=== PATIENT | male | born 1950 | race Caucasian/White ===

== ENCOUNTER 2022-05-14 09:00 | Outpatient (CLI) | payer SELFPAY ==
--- OUTSIDE RECORDS SUMMARY | 2022-05-14 09:04 | XMS_ITS | Encounter Summary ---
:1950 Author Organization [facility] Address [address] [address] Care Team Providers Name Role Phone Non Pn, Clinician Primary Care Provider Unavailable Reason for Referral Procedure/Equipment (Routine) - Incomplete Specialty Diagnoses / Procedures Referred By Contact Refer red To Contact Diagnoses Pain, joint, ankle and foot, left Riley Wilkes MD Procedures XR Foot Lt 3+ Views [address] [facility] [place] [address] 1 Referral ID Status Reason Start Date Expiration Date Visits V isits Requested Authorized [id number] Incomplete 02/05/2021 05/07/2022 1 1 Reason for Visit Reason Comments Foot Pain left foot Encounter Details Date Type Department Care Team Description 02/05/2021 Office Visit [facility] Riley Wilkes, Pain, joint, ankle and foot, right (Primary Dx); CENTER Pain, joint, ankle and foot, left [address] [facility] [address] [facility] [place] [address] [place] [phone] (Wo rk) Social History Tobacco Use Types Packs/Day Years Used Date Smoking Tobacco: Never Smokeless Tobacco: Never Alcohol Habits Answer Date Recorded How often do you have a drink containing alcohol? Not asked How many drinks containing alcohol do you have on a typical Not asked day when you are drinking? How often do you have six or more drinks on one occasion? No t asked Comment: occ 02/02/2020 Food Insecurity Answer Date Recorded Within the past 12 months, you worried that your food would Never true 06/15/2020 run out before you got money to buy more. Within the past 12 months, the food you bought just didn't N ever true 06/15/2020 last and you didn't have money to get more. Sex Assigned at Date Recorded Not on file documented as of this encounter Patient Instructions Patient InstructionsStKhushboo mcmanus - 02/05/2021 10:[address] Riley Wilkes MD Orthopaedic Surgeon/Foot & Ankle Specialist Supervisor [employer], [facility] Medication Requests: Prescriptions are not filled on weekends or on weekdays after 3:00 PM documented in this encounter Progress Notes Riley Wilkes MD - 02/05/2021 12:00 AM CDT NAME: RAIN CENTENO CSN: [id number] CLINIC NOTE DATE OF SERVICE: 02/05/2021 : 1950 CHIEF COMPLAINT: Left foot pain. HISTORY OF PRESENT ILLNESS: Mr. Centeno is a 70-year-old male who presents to clinic today for discussion on his ongoing left foot pain. The patient was last seen in our clinic on 06/12/2020. At that time, we discussed his left midfoot arthritis along with his right foot nonunion. The patient was also planning in the next couple of days after that visit to undergo a right total knee replacement, which the patient did undergo, and is recovering very well from that surgery. The patient presents to the clinic today because he has had increased left foot pain over the last week. No new trauma or history of injury to the left foot. Pain is located over the dorsal aspect of the left midfoot. Worse with activity. He does feel limited due to his left foot pain. He is here today wondering if anything has changed or if this is his arthritis contributing to his symptoms. He doesfeel more limited with his left foot when compared to his right. He has also noticed increase in swelling over the next the last week. No new symptoms of numbness or tingling into the foot or ankle. PHYSICAL EXAM: Examination of the left foot and ankle shows 1+ pitting edema throughout his left lower extremity. He does have what appears to be an effusion of his left ankle also. He has significant tenderness to palpation over his 1st, 2nd, and 3rd tarsometatarsal joints. He has palpable bone spursin this area. Nontender over his ankle joint. Nontender over his talonavicular joint. CMS intact distally. 2+ dorsalis pedis pulse. IMAGING STUDIES: X-rays 3 views of the left foot obtained today in clinic with accession #[id number] were independently reviewed in the office and with the patient. These reveal pes planus. He has significant joint space narrowing of the 1st, 2nd, and 3rd tarsometatarsal joints with jaed-jp-lypv articulation at the 1st TMT joint, along with bone spurs noted dorsally. Some joint irregularity across the navicular cuneiform joints. No acute fractures or dislocations noted. 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 4.Bilateral lower extremity swelling, left worse than right. PLAN: I discussed with the patient that his x-ray images appear similar to previous images. I do notappreciate any acute fractures or bony abnormalities noted. I did discuss he continues to have significant arthritis throughout his left midfoot. Conservative options again were discussed with the patient, which include a stiffer soled shoe or injections into his 1st, 2nd, or 3rd tarsometatarsal joints. I did discuss based on the amount of arthritis shown on x-ray, I do not know how much relief the patient will get from the injections, but they are with a try. The patient does feel like he is ready to discuss surgical intervention, so we did discuss a left 1st, 2nd and 3rd tarsometatarsal joint arthrodesis in the clinic today. Surgery itself along with the postoperative course were discussed with the patient in detail. Risks of surgery were discussed, whichinclude infection, bleeding, nerve damage, residual pain or nonunion. The patient is thinking about proceeding with surgery in April or May of this year. He is going to call our clinic a month or 2 prior to that time to choose a surgical date. We will have a phonefollowup visit with the patient at that time to remind him of the surgery along with the postoperative course. In the meantime for the swelling, I did recommend to the patient that he should try compression socks of the lightest compression to be worn to help decrease his swelling and symptoms of pain. He can also use ice and anti-inflammatory medications to help with his arthritis pain. I have no activity restrictions for the patient. He can continue with activities as tolerated. He will follow up with us on an as-needed basis. TT [address] 15 minutes. VANIA ZAMBRANO PA-C Staff: Riley Wilkes MD JAW/AQS /[id number] documented in this encounter Plan of Treatment Upcoming Encounters Date Type Specialty Care Team Description 05/29/2022 Appointment Orthopedics Kathi Fry PA-C [address] [place] [address] (Wo rk) documented as of this encounter Results XR Foot Lt 3+ Views (02/05/2021 10:14 AM CDT) Anatomical Region Laterality Modality Lower Extremity, Foot Digital Radiograph y Specimen (Source) Anatomical Location Collection Method / Collectio n Time Received Time / Laterality Volume Narrative 02/19/2021 2:43 PM CDT 3 views of the left foot. These reveal pes planus. ??He has signif icant joint space narrowing of the 1st, 2nd, and 3rd tarsometatarsal joints with aysv-cy-forb articulation at the 1st TMT joint, along with bone spurs noted dorsally. ??Some joint irregularity across the navicular cuneif orm joints. ??No acute fractures or dislocations noted. Riley Wilkes MD RAD GD documented in this encounter Visit Diagnoses Diagnosis Pain, joint, ankle and foot, right - Minnie celeste Pain, joint, ankle and foot, left Pain, joint, ankle and foot, left documented in this encounter Care Teams Fitness And Wellness Instructor Relationship Specialty Start Date End Date Non Pn, Clinician, PCP - General 06/23/20 [place] [address] documented as of this encounter
--- OUTSIDE RECORDS SUMMARY | 2022-05-14 09:04 | XMS_ITS | Encounter Summary ---
:1950 Author Organization [facility] Address [address], [place] [address] Care Team Providers Name Role Phone Non Pn, Clinician MD Primary Care Provider Unavailable Encounter Details Date Type Department Care Team Description 11/02/2020 Notes/Orders [facility] Sanjay Sutton MD [address] [facility] [address] [place] [address] Dr Aguiar [place] [address] [place] [address] [phone] (Wo rk) Social History Tobacco Use Types [...] on file documented as of this encounter Plan of Treatment Upcoming Encounters Date Type Specialty Care Team Description 05/29/2022 Appointment Orthopedics Kathi Fry PA-C [address] [place] [address] (Wo rk) documented as of this encounter Visit Diagnoses Not on filedocumented in this encounter Care Teams Ambulatory Care Nurse Relationship Specialty Start Date End Date Non Pn, Clinician, PCP - General 06/23/20 [place] [address] documented as of this encounter
--- OUTSIDE RECORDS SUMMARY | 2022-05-14 09:04 | XMS_ITS | Encounter Summary ---
:1950 Author Organization [employer] Address [address] [address] Care Team Providers Name Role Phone Non Pn, Clinician MD Primary Care Provider Unavailable Encounter Details Date Type Department Care Team Description 09/14/2021 Notes/Orders [facility] Sanjay Sutton MD [address] [facility] [address] [place] [address] Dr Aguiar [place] [address] [place] [address] [phone] (Wo rk) Social History Tobacco Use Types [...] 05/29/2022 Appointment Orthopedics Kathi Fry PA-C [address] [place] [address] (Wo rk) documented as of this encounter Visit Diagnoses Not on filedocumented in this encounter Care Teams Micro Computer Specialist Relationship Specialty Start Date End Date Non Pn, Clinician, PCP - General 06/23/20 [place] [address] documented as of this encounter
--- OUTSIDE RECORDS SUMMARY | 2022-05-14 09:04 | XMS_ITS | Encounter Summary ---
:1950 Author [facility] Address [address] [place] [address] Care Team Providers Name Role Phone Non Pn, Clinician MD Primary Care Provider Unavailable Reason for Visit Procedure/Equipment (Routine) - Incomplete Specialty Diagnoses / Procedures Referred By Contact Refer red To Contact Diagnoses Status post total right knee replacement Sanjay Murrieta MD Procedures XR Knee Rt [address] [place] [address] 1 Referral ID Status Reason Start Date Expiration Date Visits V isits Requested Authorized [id number] Incomplete 06/19/2021 09/18/2022 1 1 Encounter Details Date Type Department Care Team Description 06/19/2021 Ancillary [facility] Sanjay Murrieta MD Status post total Procedure [address] [facility] [address] [facility] D r right knee [address] [place], [place] [address] [phone] Social History Tobacco Use Types Packs/Day Years [...] 05/29/2022 Appointment Orthopedics Kathi Fry PA-C [address] [place] [address] (Wo rk) documented as of this encounter Procedures Procedure Name Priority Date/Time Associated Diagnosis Comme nts XR KNEE RT 3 VIEWS Routine 06/19/2021 11:06 AM Status post tot al Results for this CDT right knee procedure are i n replacement the results section. documented in this encounter Results XR Knee Rt 3 Views (06/19/2021 11:06 AM CDT) Anatomical Region Laterality Modality Lower Extremity, Knee Digital Radiograph y Specimen (Source) Anatomical Location Collection Method / Collectio n Time Received Time / Laterality Volume Narrative 06/26/2021 4:12 PM CDT Radiographs of the Right Knee - 3 views (06/19/21): Demonstrates a total knee arthroplasty i n satisfactory position. No evidence of component migration, looseni ng, or polyethylene wear. No sign of fracture or other abnormality. Sanjay STROUD GD documented in this encounter Visit Diagnoses Diagnosis Status post total right knee replacement documented in this encounter Care Teams Sql Data Analyst Relationship Specialty Start Date End Date Non Pn, Clinician, PCP - General 06/23/20 [place] [address] documented as of this encounter
--- OUTSIDE RECORDS SUMMARY | 2022-05-14 09:04 | XMS_ITS | Clinical Summary ---
:1950 Author Organization [facility] Address [address], [place] [address] Care Team Providers Name Role Phone Non Pn, Clinician MD Primary Care Provider Unavailable Source Comments You are receiving this document as you are listed as the primary care provider,follow-up provider, or the patient has been referred to you for consultation.This is in compliance with the Medicare and Medicaid EHR Incentive Program,which states Providers who transition their patient to another setting of careor provider of care or refers their patient to another provider of care shouldprovide summarycare record for each transition of care or referral. [facility] Allergies No known active allergies Medications Medication Sig Dispensed Refills Start Date End Date Status spironolactone Take 12.5 mg by 0 Active (ALDACTONE) 25 MG mouth daily. tabletIndications: Indications: High Hypertension Blood Pressure Disorder sacubitril-valsartan Take 1 Tablet by 0 Active (ENTRESTO) 97-103 MG mouth two times a tablet day. rOPINIRole (REQUIP) 1 Take 1 mg by mouth 0 Active MG tablet daily at bedtime. sotalol (BETAPACE) Take 120 mg by 0 Active 120 MG mouth two times a tabletIndications: day. Indications: Atrial Fibrillation Atrial Fibrillation rivaroxaban (XARELTO) Take 1 Tablet by 5 Tablet 0 06/15/2020 Active 10 MG mouth every tabletIndications: evening with a Thrombosis prevention meal for 5 days. following orthopedic Indications: surgery. Thrombosis prevention following orthopedic surgery. levothyroxine Take 1 Tablet by 0 06/16/2020 Active (SYNTHROID) 200 MCG mouth daily. tablet amoxicillin (AMOXIL) Take 4 capsules by 20 Capsule 0 1 Active 500 MG mouth 1 hour prior capsuleIndications: to dental work. Infection Prophylaxis Indications: in Prosthetic Treatment to Arthroplasty Prevent Infection in Prosthetic Arthroplasty Active Problems Problem Noted Date Primary cardiomyopathy 06/16/2020 Idiopathic hypotension 06/16/2020 Status post total right knee replacement 06/15/2020 Overview: By Dr. Murrieta at [facility]. Ascending aorta dilation 06/15/2020 Overview: -09/09/11: S/p Aortic Valve Sparing Root Repair with a 34 mm Valsalva Graft and Left Sided MAZE with Ligation of Left Atrial Appendage by Dr. Ashton. 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 08/04/2019 History of aortic root repair 07/08/2019 Hypothyroid 12/14/2018 Hypertension 12/03/2015 S/P Maze operation for atrial fibrillation 10/15/2011 Social History Tobacco Use Types Packs/Day Years [...] Assigned at Date Recorded Not on file Last Filed Vital Signs Vital Sign Reading Time Taken Comments Blood Pressure 126/59 06/23/2020 2:18 PM CDT Pulse 71 06/23/2020 2:18 PM CDT Temperature 37.4 ??C (99.3 ??F) 06/23/2020 2:18 PM CDT Respiratory Rate 18 06/23/2020 2:18 PM CDT Oxygen Saturation 93% 06/23/2020 2:18 PM CDT Inhaled Oxygen Concentration - - Weight 133.8 kg (295 lb) 06/15/2020 8:38 AM CDT Height 200.7 cm (6' 7) 06/14/2020 11:23 AM CDT Body Mass Index 33.23 06/14/2020 11:23 AM CDT Plan of Treatment Upcoming Encounters Date Type Specialty Care Team Description 05/29/2022 Appointment Orthopedics Kathi Fry PA-C [address] [place], [place] [address] (Wo rk) Health Maintenance Due Date Last Done Comments Colon Cancer Screening Plan 1950 Due Hep C Screening (Preventive 1950 Services) Medicare Annual Wellness 1950 Visit COVID-19 Vaccine (#1) 1950 DTaP/Tdap/Td (1 - Tdap) 1969 Cholesterol 1985 Zoster/Shingles (2 of 3) 08/19/2013 06/24/2013 Pneumococcal 65+ Yrs (2 - 11/27/2016 11/28/2015 PCV) Influenza (#1) 2022 07/09/2019, 06/24/2013 HepA Aged Out No longer eligib le based on patient's age to complete this to pic HepB Aged Out No longer eligib le based on patient's age to complete this to pic Hib Aged Out No longer eligib le based on patient's age to complete this to pic IPV (Polio) Aged Out No longer eligib le based on patient's age to complete this to pic MCV4 Aged Out No longer eligib le based on patient's age to complete this to pic Medical Devices Implanted Type Area Slot Machine Department Floorperson Device Shelf Model / Serial Identifier Expiration / Lot Date Asf Ps Ve 10mm 1012 Rt - [id number] DEVICE Right: [employer] 04/28/2021 [id number] / Implanted: Qty: 1 on 06/15/2020 by Sanjay Murrieta MD at [facility] / [id number] Insurance Payer Benefit Plan / Subscriber ID Effective Dates Phone Addre ss Type Group MEDICARE MEDICARE [id number] 2015-Presjensen [phone] M edicare MANAGED CARE t 65 BCBS BCBS BCBS [place]OF [place] [id number] 2016-Denny [phone] [address] [address] Medicare BLUE t 65 [place] [id number] Merrick Petty Personal/Family Self [phone] [place] (Home) [place] [address] Advance Directives Latest Code Status on File Code Status Date Activated Date Inactivated Comments Full Code 06/15/2020 2:08 PM 06/17/2020 2:45 PM Care Teams Automatic Spooler Operator Relationship Specialty Start Date End Date Non Pn, Clinician, PCP - General 06/23/20 [place] [address]
--- OUTSIDE RECORDS SUMMARY | 2022-05-14 09:04 | XMS_ITS | Encounter Summary ---
:1950 Author Organization [facility] Address [address] [address] Care Team Providers Name Role Phone Non Pn, Clinician MD Primary Care Provider Unavailable Encounter Details Date Type Department Care Team Description 06/15/2020 Notes/Orders [facility] Sanjay Sutton MD [address] [facility] [address] [place] [address] Dr Aguiar [place] [address] [place] [address] [phone] (Wo rk) Social History Tobacco Use Types [...] 05/29/2022 Appointment Orthopedics Kathi Fry PA-C [address] [place] [address] (Wo rk) documented as of this encounter Visit Diagnoses Not on filedocumented in this encounter Care Teams Sound Engineer Audio Control Relationship Specialty Start Date End Date Non Pn, Clinician, PCP - General 06/23/20 [place] [address] documented as of this encounter
--- OUTSIDE RECORDS SUMMARY | 2022-05-14 09:04 | XMS_ITS | Encounter Summary ---
:1950 [address] [facility] Address [address], [place] [address] Care Team Providers Name Role Phone Non Pn, Clinician MD Primary Care Provider Unavailable Reason for Visit Reason Comments PAIN, NOS Encounter Details Date Type Department Care Team Description 08/29/2020 Telephone [facility] Kathi Chen PA-C PAIN, NOS [address] [facility] [address] [facility] [place], [place] [address] [place] [address] [phone] (Wo rk) Social History Tobacco Use Types [...] on file documented as of this encounter Nursing Notes Mauro Rivera, RN - 08/29/2020 10:10 AM CST Pt was called back and patient is down in [place]. He states his back is tight in the morning but then gets better. He is going to try some PT and will seek advise down in [place] if symtoms persist. GHT ADJUSTER Caorlyn Johnson - 08/29/2020 8:58 AM CST Has the patient recently had surgery or an injury? No How may we help you today? Patient is in [place] and is having low back pain. He would like to only talk to Kathi Fry since she is familiar with his history. Describe your symptoms/concerns: When did the issue start: Have you been seen for this recently?: 12/30/18 Kathi Fry [Drywall Stripper Helper/Appt Center: If yes, please include date and provider.] Is it okay to leave detailed message on your voicemail? Yes [Drywall Stripper Helper/Appt Center: If this call is after 3 p.m., communicate to patient: If we are not able to get back to you by the end of the day and your symptoms worsen please contact the Careline] GHT ADJUSTER documented in this encounter Plan of Treatment Upcoming Encounters Date Type Specialty Care Team Description 05/29/2022 Appointment Orthopedics Kathi Fry, PACristelC [address] [place], [place] [address] (Wo rk) documented as of this encounter Visit Diagnoses Not on filedocumented in this encounter Care Teams Academic Adviser Relationship Specialty Start Date End Date Non Pn, Clinician, PCP - General 06/23/20 [place] [address] documented as of this encounter
--- OUTSIDE RECORDS SUMMARY | 2022-05-14 09:04 | XMS_ITS | Encounter Summary ---
:1950 Author Organization [facility] Address [address] [address] [place] [address] Care Team Providers Name Role Phone Non Pn, Clinician MD Primary Care Provider Unavailable Reason for Visit Reason Comments Forms Encounter Details Date Type Department Care Team Description 05/17/2021 Telephone [facility] Sanjay Sutton MD Forms [address] [facility] [address] [facility] [address] [place] [address] [place] [address] [phone] (Wo rk) Social History Tobacco Use Types [...] documented as of this encounter Nursing Notes Danay Hancock, RN - 05/17/2021 12:24 PM CDT Form completed and faxed back to clinic. Sybil Gonsales 05/17/2021 8:57 AM CDT Has the patient recently had surgery or an injury? right knee TKA/ dos 06-15-20 What form/letter are you requesting: Pre med form Why is this form/letter needed: Per dental facility req, they're need a provider signature and to fax it back over when form is completed. Where was form dropped off: Faxed on 04/23 04/27 05/11 to [phone] How would you like to receive your completed form/letter?: Faxed to this fax number: return # on form [Director Of Enrollment: If pt would like this sent anywhere other than to themselves, we need them to sign a Release of Information. Does pt have a current release of information on file?: N/A] Is it okay to leave detailed message on your voicemail?: yes [Director Of Enrollment: Communicate to patient: Forms may take up to 7-10 business days to complete. We will complete it as soon as possible and return to the location you requested.] documented in this encounter Plan of Treatment Upcoming Encounters Date Type Specialty Care Team Description 05/29/2022 Appointment Orthopedics Kathi Fry, ROSY [address] [place] [address] (Wo rk) documented as of this encounter Visit Diagnoses Not on filedocumented in this encounter Care Teams Deputy Sheriff Building Guard Relationship Specialty Start Date End Date Non Pn, Clinician, PCP - General 06/23/20 [place] [address] documented as of this encounter
--- OUTSIDE RECORDS SUMMARY | 2022-05-14 09:04 | XMS_ITS | Encounter Summary ---
:1950 Author Organization [employer] Address [address], [place] [address] Care Team Providers Name Role Phone Non Pn, Clinician MD Primary Care Provider Unavailable Reason for Visit Reason Comments Knee Problem right knee TKA Encounter Details Date Type Department Care Team Description 01/16/2021 Office Visit [facility] Sanjay Murrieta MD Status post total CENTER [address] [facility] right knee [address] [place], [place] replacement (Primary [place], [place] [id number] Dx) [phone] (Wo rk) Social History Tobacco Use Types [...] on file documented as of this encounter Progress Notes Sanjay Murrieta MD - 01/16/2021 10:00 AM CDT Merrick Petty [id number] 1950 Orthopaedic Surgery Post-Operative Follow-Up 01/16/2021 History of Present Illness: Merrick Petty is a 70 y.o. male who presents for follow-up regarding his right knee. He is 7 months status post right total knee arthroplasty, completed on 06/15/2020. He just got back from [place]. He was able to golf and do most activities. He says that his knee is doing really well. No major complaints. Physical Exam: General: The patient is in no acute distress. Neuro: Answers questions appropriately. Alert and oriented x 3. Skin: Cool to touch without erythema, ecchymosis, or lesions. Right Knee: Well-healed incision. No effusion. Full extension. Excellent flexion to about 125 degrees. Stable varus/valgus stress. Assessment: Diagnosis and Associated Orders ICD-10-CM 1. Status post total right knee replacement Z96.651 Plan: At this point, he will continue with progressive activities. Follow-up at one year post-op. He needsto have some dental work done, so we will call in some prophylactic antibiotics for him. He will call us if he has any other issues. Scribe Disclosure: Candy Amaya, am serving as a scribe to document services personally performed by Sanjay Murrieta MD at this visit, based upon the provider's statements to me. All documentation has been reviewed by the aforementioned provider prior to being entered into the official medical record. Portions of this medical record were completed by a scribe. UPON MY REVIEW AND AUTHENTICATION BY ELECTRONIC SIGNATURE, this confirms (a) I performed the applicable clinical services, and (b) the recordis accurate. Sanjay Murrieta MD documented in this encounter Plan of Treatment Upcoming Encounters Date Type Specialty Care Team Description 05/29/2022 Appointment Orthopedics Kathi Fry PA-C [address] [place], [place] [address] (Wo rk) documented as of this encounter Visit Diagnoses Diagnosis Status post total right knee replacement - Primary documented in this encounter Care Teams Spiritual Care Coordinator Relationship Specialty Start Date End Date Non Pn, Clinician, PCP - General 06/23/20 [place] [address] documented as of this encounter
--- OUTSIDE RECORDS SUMMARY | 2022-05-14 09:04 | XMS_ITS | Encounter Summary ---
:1950 Author Organization [employer] Address [address] [address] Care Team Providers Name Role Phone Non Pn, Clinician MD Primary Care Provider Unavailable Reason for Visit Reason Comments Questions Possible infection Encounter Details Date Type Department Care Team Description 06/23/2020 Telephone [facility] Sanjay Jenkins MD Questions (Possible CENTER [address] [facility] [address] infection ) [address] [place], [place] [address] [phone] (Wo rk) Social History Tobacco Use Types [...] encounter Nursing Notes Danay Hancock, RN - 06/23/2020 10:57 AM CDT Pt calling today to report change in symptoms since LEORA visit at [facility] on 2020 with Seema Rodriguez, see OV note. S/p:Right TKA 06/15/20 Per pt the redness has exceed the outlined that was done in clinic on 2020. As well as increased swelling, redness, warmth, x1 episode of chills, no fever (last 99). Increased pain now rating 10/10, had previously been 2/10. Taking Oxycodone 10mg Q4HPRN and tylenol TID with minimal relief. No calf pain. But on the right side of his calf there is an area that is tender to touch. Entire legis pretty red and swollen. Pt is on Xarelto as prescribed. New drainage noted since dressing change on 2020, yellow drainage at top of dressing and bloodydrainage at bottom of dressing. Reached out to Seema Rodriguez who spoke with Dr. Murrieta. Who recommended pt go to [facility] ER to be evaluated for infection with labs (CBC, ESR, CRP), and knee aspiration as well as starting abx in the hospital. Rule out DVT ultrasound. Original Keflex order cancelled as pt instead advised to go to ER to be evaluated today. Called pt with plan, stated understanding. Will present to [facility] ER. ER updated with pt arrival and plan. documented in this encounter Plan of Treatment Upcoming Encounters Date Type Specialty Care Team Description 05/29/2022 Appointment Orthopedics Kathi Fry PA-C [address] [place] [address] (Wo rk) documented as of this encounter Visit Diagnoses Not on filedocumented in this encounter Care Teams Venue Manager Relationship Specialty Start Date End Date Non Pn, Clinician, MD PCP - General 06/23/20 [place] [address] documented as of this encounter
--- OUTSIDE RECORDS SUMMARY | 2022-05-14 09:04 | XMS_ITS | Encounter Summary ---
:1950 Author Organization [employer] Address [address] [facility] [place] [address] Care Team Providers Name Role Phone Non Pn, Clinician MD Primary Care Provider Unavailable Reason for Visit Procedure/Equipment (Routine) - Incomplete Specialty Diagnoses / Procedures Referred By Contact Refer red To Contact Diagnoses Pain, joint, ankle and foot, left Riley Wilkes MD Procedures XR Foot Lt 3+ Views [address] [place] [address] Referral ID Status Reason Start Date Expiration Date Visits V isits Requested Authorized [id number] Incomplete 02/05/2021 05/07/2022 1 1 Encounter Details Date Type Department Care Team Description 02/05/2021 Ancillary [facility] Riley Wilkes, Pain, joint, ankle Procedure [address] and foot, left Drive [address] [facility] [place] [address] [phone] Social History Tobacco Use Types Packs/Day Years [...] 05/29/2022 Appointment Orthopedics Kathi Fry PA-C [address] [place] [address] (Wo rk) documented as of this encounter Procedures Procedure Name Priority Date/Time Associated Diagnosis Comme nts XR FOOT LT 3+ VIEWS Routine 02/05/2021 10:14 AM Pain, joint, a nkle Results for this CDT and foot, left procedure are in the results section. documented in this encounter Results XR Foot Lt 3+ [...] 1st, 2nd, and 3rd tarsometatarsal joints with pxsg-lw-zzoo articulation at the 1st TMT joint, along with bone spurs noted dorsally. ??Some joint irregularity across the navicular cuneif orm joints. ??No acute fractures or dislocations noted. Riley Wilkes MD RAD GD documented in this encounter Visit Diagnoses Diagnosis Pain, joint, ankle and foot, left documented in this encounter Care Teams Machine Operator Relationship Specialty Start Date End Date Non Pn, Clinician, PCP - General 06/23/20 [place] [address] documented as of this encounter
--- OUTSIDE RECORDS SUMMARY | 2022-05-14 09:04 | XMS_ITS | Encounter Summary ---
:1950 Author Organization [employer] Address [address] [place] [address] Care Team Providers Name Role Phone Needs Pcp, Assignment Primary Care Provider Reason for Visit Reason Comments Post-Op Follow Up right knee TKA Encounter Details Date Type Department Care Team Description 2020 Office Visit [facility] Seema Cheney, Stat post total CENTER OA right knee [address] [facility] [address] [facility] [address] replacement (Primary [place], [place] [address] [place], [place] Dx) [phone] Social History Tobacco Use Types Packs/Day Years [...] documented as of this encounter Progress Notes Seema Cheney, OA - 2020 1:30 PM CDT [facility] Post-Operative Note Surgeon: Sanjay Murrieta MD Surgery: Right total knee arthroplasty (dos 06-15-20) Days Post-op: 7 ROM: Stayed the same. Motion was not checked due to swelling and drainage in his knee. Weight Bearing Status: WBAT. Assistive Devices: Walker. Pain Location: Knee. He has a large amount of swelling in the knee, down through his calf and into his foot. He has a very large area of ecchymosis along the lateral side of his thigh and a smaller amount along medial thigh. He is on Xeralto which may be contributing to his bruising. Pain Scale: 8/10 Pain Medication: Other: Using Oxycodone 5 mg for pain Response to Medication: Tolerated Post-Op Dressing: Small amount of bloody drainage at the distal end of dressing. A new silver alginate dressing with Tegaderm was applied. He was also given Tubigrip in 2 sizes to use during the day for swelling. He has a game ready for icing and will continue to use this also. Incision: Redness. Swelling. Tender. Small amount of bloody drainage from distal end of incision only Drainage: Bloody. Wound Care: Incision was cleansed with Hydrogen Peroxide. Area of redness along both sides of his knee was outlined with a pen. He will monitor this area and is instructed to call if the area of redness goes beyond the pen outline. Assessment: Patients knee and thigh were evaluated by Michael Lopez MD. He will continue to monitor the redness along the sides of his knee and take his temperature 2-3 times per day. Follow-up: MD scheduled for post op appointment on FridayJune 27. He is instructed to callif pain increases or redness extends around his knee or if he develops fever and chills. documented in this encounter Plan of Treatment Upcoming Encounters Date Type Specialty Care Team Description 05/29/2022 Appointment Orthopedics Kathi Fry PA-C [address] [place], [place] [address] (Wo rk) documented as of this encounter Visit Diagnoses Diagnosis Status post total right knee replacement - Primary documented in this encounter Care Teams Asbestos Brake Lining Finisher Helper Relationship Specialty Start Date End Date Needs Pcp, Assignment PCP - General 06/15/20 06/22/20 [place] [address] documented as of this encounter
--- OUTSIDE RECORDS SUMMARY | 2022-05-14 09:04 | XMS_ITS | Encounter Summary ---
:1950 Author Organization [facility] Address [address] [place] [address] Care Team Providers Name Role Phone Non Pn, Clinician MD Primary Care Provider Unavailable Reason for Visit Reason Onset Date Comments Refill 06/27/2020 Dilaudid 4 mg Encounter Details Date Type Department Care Team Description 06/27/2020 Refill [facility] Sanjay Murrieta MD Refill (Dilaudid 4 mg) [address] [facility] [address] [place] [address] [address] [place] [address] [place] [address] [phone] (Wo rk) Social History Tobacco Use Types [...] 05/29/2022 Appointment Orthopedics Kathi Fry PA-C [address] [place], [place] [address] (Wo rk) documented as of this encounter Visit Diagnoses Diagnosis Pain Generalized pain documented in this encounter Care Teams Chief Hydroelectric Station Operator Relationship Specialty Start Date End Date Non Pn, Clinician, PCP - General 06/23/20 [place] [address] documented as of this encounter
--- OUTSIDE RECORDS SUMMARY | 2022-05-14 09:04 | XMS_ITS | Encounter Summary ---
:1950 Author Organization [employer] Address [address] [place] [address] Care Team Providers Name Role Phone Non Pn, Clinician MD Primary Care Provider Unavailable Reason for Visit Reason Comments Post-Op Follow Up right knee TKA Encounter Details Date Type Department Care Team Description 07/24/2020 Office Visit [facility] Sanjay Murrieta MD S/P total knee arthroplasty, right (Prim oma Dx); CENTER [address] [place] [address] Dr Localized swelling of right lower extrem ity [address] [place], [place] [address] [phone] (Wo rk) Social History Tobacco Use Types [...] encounter Progress Notes Sanjay Murrieta MD - 07/24/2020 2:50 PM CDT Merrick Petty [id number] 1950 Orthopaedic Surgery Postoperative Follow-Up 07/24/2020 History of Present Illness: Merrick Petty is a 70 y.o. male 6 weeks status-post total right knee arthroplasty that was completedon 06/15/20 who presents today for postoperative follow-up. His biggest complaint is continued swelling. He has a dramatic difference of swelling in the morning compared to later in the day. He days that physical therapy is going well. He is back on a bike and walking. He does have a history of restless leg syndrome. Physical Exam: General: The patient is in no acute distress. Neuro: Answers questions appropriately. Alert and oriented x 3. Skin: Cool to touch without erythema, ecchymosis, or lesions. Right Knee: Excellent motion. Full extension. Flexion to 115 degrees. Stable to varus and valgus stress. Substantial swelling of the entire lower extremity below the knee. No pitting edema present Assessment: Diagnosis and Associated Orders ICD-10-CM 1. S/P total knee arthroplasty, right Z96.651 2. Localized swelling of right lower extremity R22.41 Satisfactory post-operative course. Plan: At this point, we talked about possibly a compressive stocking. He did not want to consider that. Oumarll continue to work on therapy. He will let us know of his progress. Ultimately, I hope this will continue to improve and resolve for him. He will see me back in 6 weeks for follow-up evaluation. Scribe Disclosure: Scribed for Sanjay Murrieta MD by Vianey Vega medical billing specialist. I, Sanjay Murrieta MD, have personally reviewed and agree with the information entered by the scribe. Sanjay Murrieta MD documented in this encounter Plan of Treatment Upcoming Encounters Date Type Specialty Care Team Description 05/29/2022 Appointment Orthopedics Kathi Fry PA-C [address] [place] [address] (Wo rk) documented as of this encounter Visit Diagnoses Diagnosis S/P total knee arthroplasty, right - Minnie celeste Localized swelling of right lower extrem ity documented in this encounter Care Teams Independent Beauty Consultant Relationship Specialty Start Date End Date Non Pn, Clinician, PCP - General 06/23/20 [place] [address] documented as of this encounter
--- OUTSIDE RECORDS SUMMARY | 2022-05-14 09:04 | XMS_ITS | Encounter Summary ---
:1950 Author Organization [facility] Address [address] [place] [address] Care Team Providers Name Role Phone Non Pn, Clinician MD Primary Care Provider Unavailable Reason for Visit Reason Comments Post-Op Follow Up right knee TKA Encounter Details Date Type Department Care Team Description 06/27/2020 Office Visit Sanjay Galeana MD Status post total right knee replacement (Primary Dx); CENTER [address] [place] [address] Dr Edema, leg [address] [place], [place] [address] [phone] (Wo rk) Social History Tobacco Use Types [...] as of this encounter Patient Instructions Patient InstructionsWhSeema ruiz, OA - 06/27/2020 8:[address] Sanjay Murrieta MD Orthopaedic Surgeon Medication Requests: Prescriptions are not filled on weekends or on weekdays after 3:00 PM Follow up in 1 week for staple removal documented in this encounter Progress Notes Sanjay Murrieta MD - 06/27/2020 8:40 AM CDT Merrick Petty [id number] 1950 Orthopaedic Surgery Postoperative Follow-Up 06/27/2020 History of Present Illness: Merrick Petty is a 70 y.o. male 12 days status-post right total knee arthroplasty completed on 06/15/2020 who presents today for postoperative follow-up. He developed significantly increased swelling at a week and some drainage from the lower end of his incision. He was seen and evaluated last , and was noted to have sig subcutaneous swelling, but no signs of infection. His pain increased on Friday, and Friday night, he went to the ER and sat for 5 hours without being seen. He eventually left and saw his primary care physician, where he got a doppler ultrasound of hisleg which revealed no deep vein thrombosis. He has persistent swelling and pain, good range of motion in knee, and no further drainage. Physical Exam: General: The patient is in no acute distress. Neuro: Answers questions appropriately. Alert and oriented x 3. Skin: Cool to touch without erythema, ecchymosis, or lesions. Right Knee: Satisfactory healing. He has one small bloody area at the inferior aspect of his incision, but he has no sign drainage on his dressing and he has no other areas of drainage. No purulence. He has substantial swelling in subcutaneous tissue but not his knee joint itself. Has significant swelling in calf, down to his ankle and foot. Full extension with some discomfort. Flexion to almost 80 degrees without increased pain. No imaging dictated. Assessment: 1. S/p right total knee arthroplasty. 2. Significant right knee and lower extremity post-operative edema. Plan: At this point, there is no indication of any infection either deep or superficial tissues. He has nosignificant warmth to the knee above what I would expect for a post-op situation. He has not had fever, sweats, or chills, and his situation is improving. At this point, every other staple was removed,dressing was applied, and we are going to get him some compressive dressing and tubagrip to try and get the swelling down in his knee and leg. He has had 3 physical therapy sessions without a great deal of pain or discomfort. At this point, I want to see him back in 1 week, where we will remove the rest of the ashley. He can now shower over his Tegaderm dressing. Scribe Disclosure: ICandy, am serving as a scribe to document [...] 05/29/2022 Appointment Orthopedics Kathi Fry PA-C [address] [place] [address] (Wo rk) documented as of this encounter Visit Diagnoses Diagnosis Status post total right knee replacement - Primary Edema, leg documented in this encounter Care Teams Senior Cognos Developer Relationship Specialty Start Date End Date Non Pn, Clinician, PCP - General 06/23/20 [place] [address] documented as of this encounter
--- OUTSIDE RECORDS SUMMARY | 2022-05-14 09:04 | XMS_ITS | Encounter Summary ---
:1950 Author Organization [facility] Address [address], [place] [address] Care Team Providers Name Role Phone Non Pn, Clinician MD Primary Care Provider Unavailable Reason for Visit Reason Comments Post-Op Problem Referral Encounter Details Date Type Department Care Team Description 06/23/2020 Emergency [facility] [address] [place], [place] [address] Social History Tobacco Use Types Packs/Day Years [...] on file documented as of this encounter Last Filed Vital Signs Vital Sign Reading Time Taken Comments Blood Pressure 126/59 06/23/2020 2:18 PM CDT Pulse 71 06/23/2020 2:18 PM CDT Temperature 37.4 ??C (99.3 ??F) 06/23/2020 2:18 PM CDT Respiratory Rate 18 06/23/2020 2:18 PM CDT Oxygen Saturation 93% 06/23/2020 2:18 PM CDT Inhaled Oxygen Concentration - - Weight - - Height - - Body Mass Index - - documented in this encounter Medications at Time of Discharge Medication Sig Dispensed Refills Start Date End Date levothyroxine Take 1 Tablet by 0 06/16/2020 (SYNTHROID) 200 MCG mouth daily. tablet rOPINIRole (REQUIP) 1 Take 1 mg by mouth 0 MG tablet daily at bedtime. sacubitril-valsartan Take 1 Tablet by 0 (ENTRESTO) 97-103 MG mouth two times a tablet day. sotalol (BETAPACE) 120 Take 120 mg by mouth 0 MG tabletIndications: two times a day. Atrial Fibrillation Indications: Atrial Fibrillation spironolactone Take 12.5 mg by mouth 0 (ALDACTONE) 25 MG daily. Indications: tabletIndications: High Blood Pressure Hypertension Disorder acetaminophen (TYLENOL) Take 2 Tablets by 0 06/1706/19/2021 500 MG tablet mouth three times a day. acyclovir (ZOVIRAX) 5 % Apply topically. 0 201706/19/2021 ointment hydrOXYzine pamoate Take 1 Capsule by 30 Capsule 0 0 01/16/2021 (VISTARIL) 25 MG mouth three times a capsule day as needed. LORazepam (ATIVAN) 1 MG Take 2 mg by mouth as 0 06/19/2021 tablet needed for Anxiety. oxyCODONE (ROXICODONE) Take 1-2 Tablets by 45 Tablet 0 05/3007/24/2020 5 MG immediate release mouth every 4 hours tablet as needed for Pain. Take 1 tablet for pain rated at 4-7. Take 2 tablets for pain rated 8-10. rivaroxaban (XARELTO) Take 1 Tablet by 0 06/15/20 20 06/19/2021 20 MG mouth every evening tabletIndications: with a meal. Ok to atrial fibrillation resume after 5 day course of 10 mg per day. Indications: atrial fibrillation senna (SENOKOT) 8.6 MG Take 2 Tablets by 60 Tablet 0 201907/24/2020 tabletIndications: mouth daily at Constipation bedtime. Take while on narcotics. Hold for loose stools. Indications: Constipation documented as of this encounter ED Notes Destiny [place] [facility] - 06/23/2020 1:09 PM CDT Referred from [facility] / Danay [phone] by . for post op prob. Background/plan: post op R total knee , r/o infection, labs and aspiration requested, see [facility] notes Means of arrival: private vehicle Call back: MARÍA ELENA Gallegos [phone] documented in this encounter Plan of Treatment Upcoming Encounters Date Type Specialty Care Team Description 05/29/2022 Appointment Orthopedics Kathi Fry PA-C [address] [place] [address] (Wo rk) documented as of this encounter Procedures Procedure Name Priority Date/Time Associated Comments Diagnosis EXTRA BLUE TOP TUBE Routine 06/23/2020 3:28 PM Re sults for this CDT procedure are i n the results section. CBC AND DIFFERENTIAL STAT 06/23/2020 3:28 PM R esults for this PANEL CDT procedure are i n the results section. EXTRA TUBES Routine 06/23/2020 3:28 PM Results f or this CDT procedure are i n the results section. EXTRA GOLD/SST TUBE Routine 06/23/2020 3:28 PM Re sults for this CDT procedure are i n the results section. COMPLETE BLOOD STAT 06/23/2020 3:28 PM Results for this COUNT-W/DIFF CDT procedure are i n the results section. BASIC METABOLIC PANEL STAT 06/23/2020 3:28 PM Results for this CDT procedure are i n the results section. DIFFERENTIAL STAT 06/23/2020 3:28 PM Results f or this CDT procedure are i n the results section. documented in this encounter Results (ABNORMAL) Differential (06/23/2020 3:28 PM CDT) [facility] Method Time Signature RBC Morphology Reviewed 06/23/2020 [facility] 4:07 PM CDT LABORATORY Platelet Adequate Adequate 06/23/2020 [facility] Estimate 4:07 PM CDT LABORATORY Myelocyte 0.1 (H) <=0.0 06/23/2020 [facility] Absolute 10(9)/L 4:07 PM CDT LABORATORY Neutrophil 11.5 (H) 1.7 - 7.0 06/23/2020 [facility] Absolute 10(9)/L 4:07 PM CDT LABORATORY Lymphocyte 1.7 1.0 - 4.8 06/23/2020 [facility] Absolute 10(9)/L 4:07 PM CDT LABORATORY Monocytes 1.7 (H) 0.2 - 0.9 06/23/2020 [facility] Absolute 10(9)/L 4:07 PM CDT LABORATORY Eosinophil 0.0 0.0 - 0.5 06/23/2020 [facility] Absolute 10(9)/L 4:07 PM CDT LABORATORY Basophil 0.0 0.0 - 0.3 06/23/2020 [facility] Absolute 10(9)/L 4:07 PM CDT LABORATORY Specimen Anatomical Collection Method / Collection Time Recei salud Time (Source) Location / Volume Laterality Blood Venipuncture / 06/23/2020 3:28 06/23/2020 3:32 Unknown PM CDT PM CDT Steve Graves MD LAB_1 Performing Organization Address City/[facility] Phon e Number [facility] [address] [place] [address] Extra Gold/SST Tube (06/23/2020 3:28 PM CDT) [facility] gist Method Time Signature Extra Specimen 06/23/2020 [facility] Gold/SST Tube will be held 5:01 PM CDT LABORATORY Drawn for 5 days Specimen Anatomical Collection Method / Collection Time Recei salud Time (Source) Location / Volume Laterality Blood Venipuncture / 06/23/2020 3:28 06/23/2020 3:34 Unknown PM CDT PM CDT Steve Graves MD LAB_1 Performing Organization Address City/State/[facility] Phon e Number [facility] [address] [place] [address] Extra Blue top tube (06/23/2020 3:28 PM CDT) Patholo gist Method Time Signature Extra Blue Specimen 06/23/2020 [facility] Top Drawn will be held 5:01 PM CDT LABORATORY for 3 days Specimen Anatomical Collection Method / Collection Time Recei salud Time (Source) Location / Volume Laterality Blood Venipuncture / 06/23/2020 3:28 06/23/2020 3:34 Unknown PM CDT PM CDT Steve Graves MD LAB_1 Performing Organization Address [facility] Phon e Number [facility] [address] [place] [address] (ABNORMAL) Complete Blood Count-W/Diff (06/23/2020 3:28 PM CDT) [facility] Method Time Signature WBC 15.0 (H) 3.5 - 06/23/2020 [facility] 10.5 4:07 PM CDT LABORATORY x10(9)/L RBC 3.72 (L) 4.32 - 06/23/2020 [facility] 5.72 4:07 PM CDT LABORATORY x10(12)/L Hemoglobin 12.1 (L) 13.5 - 06/23/2020 [facility] 17.5 g/dL 4:07 PM CDT LABORATORY HCT 37.8 (L) 38.8 - 06/23/2020 [facility] 50.0 % 4:07 PM CDT LABORATORY MCV 101.6 (H) 80.0 - 06/23/2020 [facility] 100.0 fL 4:07 PM CDT LABORATORY MCH 32.5 27.6 - 06/23/2020 [facility] 33.3 pg 4:07 PM CDT LABORATORY MCHC 32.0 31.5 - 06/23/2020 [facility] 35.2 g/dL 4:07 PM CDT LABORATORY RDW 13.5 11.9 - 06/23/2020 [facility] 15.5 % 4:07 PM CDT LABORATORY Platelets 328 150 - 450 06/23/2020 [facility] x10(9)/L 4:07 PM CDT LABORATORY Automated NRBC 0 <=0 /100 06/23/2020 [facility] WBC 4:07 PM CDT LABORATORY Specimen Anatomical Collection Method / Collection Time Recei salud Time (Source) Location / Volume Laterality Blood Venipuncture / 06/23/2020 3:28 06/23/2020 3:32 Unknown PM CDT PM CDT Steve Graves MD LAB_1 Performing Organization Address [facility] Phon e Number [facility] [address] [place] [address] (ABNORMAL) Basic Metabolic Panel (06/23/2020 3:28 PM CDT) [facility] Method Time Signature Sodium 132 (L) 136 - 145 06/23/2020 [facility] mmol/L 4:02 PM CDT LABORATORY Potassium 4.7 3.5 - 5.1 06/23/2020 [facility] mmol/L 4:02 PM CDT LABORATORY Chloride 95 (L) 98 - 109 06/23/2020 [facility] mmol/L 4:02 PM CDT LABORATORY CO2 30 (H) 20 - 29 06/23/2020 [facility] mmol/L 4:02 PM CDT LABORATORY Anion Gap 7 7 - 16 06/23/2020 [facility] mmol/L 4:02 PM CDT LABORATORY Calcium 9.2 8.4 - 10.4 06/23/2020 [facility] mg/dL 4:02 PM CDT LABORATORY BUN 16 7 - 26 06/23/2020 [facility] mg/dL 4:02 PM CDT LABORATORY Creatinine 0.64 (L) 0.73 - 06/23/2020 [facility] 1.18 mg/dL 4:02 PM CDT LABORATORY GFR, Estimated >60 >60 06/23/2020 [facility] mL/min/1.7 4:02 PM CDT LABORATORY 3m2 Glucose 125 (H) 70 - 100 06/23/2020 [facility] mg/dL 4:02 PM CDT LABORATORY Comment: The given reference range is fo r the fasting state. Non-fasting reference range for glucose is 70 - 180 mg/dL. Specimen Anatomical Collection Method / Collection Time Recei salud Time (Source) Location / Volume Laterality Blood Venipuncture / 06/23/2020 3:28 06/23/2020 3:32 Unknown PM CDT PM CDT Steve Graves MD LAB_1 Performing Organization Address City/State/ZIP Code [facility] e Number [facility] [address] [place] [address] documented in this encounter Visit Diagnoses Triage Assessment Note - Janelle Ferguson RN - 06/23/2020 2:16 PM CDT Pt presents for concern for right knee infection, had right TKA last week, has been having increasing swelling to the knee and leg, having yellowish drainage on the surgical dressings that remain unchanged. Advised to be seen in EC r/o infection. documented in this encounter Care Teams Turkey Farmer Relationship Specialty Start Date End Date Non Pn, Clinician, PCP - General 06/23/20 [place] [address] documented as of this encounter
--- OUTSIDE RECORDS SUMMARY | 2022-05-14 09:04 | XMS_ITS | Encounter Summary ---
:1950 Author Organization [facility] [employer] [facility] Address [address] [address] Care Team Providers Name Role Phone Non Pn, Clinician MD Primary Care Provider Unavailable Reason for Referral Procedure/Equipment (Routine) - Incomplete Specialty Diagnoses / Procedures Referred By Contact Refer red To Contact Diagnoses Status post total right knee replacement Sanjay Murrieta MD Procedures XR Knee Rt 3 Views [address] [facility] [place], [place] [address] Referral ID Status Reason Start Date Expiration Date Visits V isits Requested Authorized [id number] Incomplete 06/19/2021 09/18/2022 1 1 Reason for Visit Reason Comments Knee Problem One year post op TKA Right Encounter Details Date Type Department Care Team Description 06/19/2021 Office Visit [facility] Sanjay Murrieta MD Status post total CENTER [address] [facility] right knee [address] [place], [place] replacement ([place], [place] [id number] Dx) [phone] (Wo rk) Social History Tobacco Use Types [...] encounter Progress Notes Sanjay Murrieta MD - 06/19/2021 10:50 AM CDT Merrick Petty [id number] 1950 Orthopaedic Surgery Postoperative Follow-Up 06/19/2021 History of Present Illness: Merrick Petty is a 70 y.o. male 1 year status-post right total knee arthroplasty, completed on 06/15/20, who presents today for postoperative follow-up. He says he is doing great, with no complaints whatsoever. Physical Exam: General: The patient is in no acute distress. Neuro: Answers questions appropriately. Alert and oriented x 3. Skin: Cool to touch without erythema, ecchymosis, or lesions. Right Knee: ROM: 0-past 120 degrees. Stable to varus/valgus stress. Patella tracks centrally. Imaging: Radiographs of the Right Knee - 3 views (06/19/21): Demonstrates a total knee arthroplasty in satisfactory position. No evidence of component migration,loosening, or polyethylene wear. No sign of fracture or other abnormality. I ordered and independently reviewed and interpreted the imaging studies above; the results were discussed with the patient. Assessment: Diagnosis and Associated Orders ICD-10-CM 1. Status post total right knee replacement Z96.651 XR Knee Rt 3 Views Satisfactory progress. Plan: Merrick Petty will continue with activity to tolerance, and follow up at the 5 year rodney for follow up evaluation and x-ray. Scribe Disclosure: I, Candy Lynn, am serving as a scribe to document [...] 05/29/2022 Appointment Orthopedics Kathi Fry PA-C [address] [place] [address] (Wo rk) documented as of this encounter Results XR Knee Rt 3 [...] sign of fracture or other abnormality. Sanjay Murrieta MD RAD GD documented in this encounter Visit Diagnoses Diagnosis Status post total right knee replacement - Primary Status post total right knee replacement documented in this encounter Care Teams Community Artist Relationship Specialty Start Date End Date Non Pn, Clinician, PCP - General 06/23/20 [place] [address] documented as of this encounter
--- OUTSIDE RECORDS SUMMARY | 2022-05-14 09:04 | XMS_ITS | Encounter Summary ---
:1950 Author Organization [employer] Address [address] [place] [address] Care Team Providers Name Role Phone Needs Pcp, Assignment Primary Care Provider Reason for Referral Therapies (Routine) - Closed Specialty Diagnoses / Procedures Referred By Contact Refer red To Contact Diagnoses Status post total right knee replacement Nba Paulino PA-C [address] [place], [place] [address] Referral ID Status Reason Start Date Expiration Date Visits Requ ested Visits Authorized Closed 06/15/2020 08/14/2020 1 1 Scheduling Instructions Total Knee Protocol Procedure/Equipment (Routine) - Incomplete Specialty Diagnoses / Procedures Referred By Contact Refer red To Contact Procedures Sanjay Murrieta MD XR Knee Rt 2 Views [address] [facility] [place], [place] [address] Referral ID Status Reason Start Date Expiration Date Visits V isits Requested Authorized [id number] Incomplete 06/15/2020 09/14/2021 1 1 (Routine) - Closed Specialty Diagnoses / Procedures Referred By Contact Refer red To Contact Procedures Sanjay Murrieta MD Physical Therapy Eval and [address] Treat [place] [address] Today Referral ID Status Reason Start Date Expiration Date Visits Requ ested Visits Authorized [id number] Closed 06/15/2020 09/14/2021 1 1 Reason for Visit Auth/Cert Specialty Diagnoses / Procedures Referred By Contact Refer red To Contact Diagnoses Osteoarthritis of right knee, unspecified osteoarthritis type Procedures TOTAL KNEE JOINT REPLACEMENT Referral ID Status Reason Start Date Expiration Date Visits Requ ested Visits Authorized [id number] 1 1 Encounter Details Date Type Department Care Team Description 06/15/2020 - [facility] Orth[facility] Sanjay Murrieta, Status post total right knee replacement (Primary Dx); 06/17/2020 Encounter Med Surg Idiopathic hypotension; [address] [facility] Primary cardiomyopathy ([address]C) [address] [facility], [address] [place] [address] [phone] Social History Tobacco Use Types Packs/Day Years [...] Sign Reading Time Taken Comments Blood Pressure 102/56 06/17/2020 7:52 AM CDT Pulse 64 06/17/2020 7:52 AM CDT Temperature 36.7 ??C (98 ??F) 06/17/2020 6:04 AM CDT Respiratory Rate 18 06/17/2020 6:04 AM CDT Oxygen Saturation 93% 06/17/2020 6:04 AM CDT Inhaled Oxygen Concentration - - Weight 133.8 kg (295 lb) 06/15/2020 8:38 AM CDT Height 200.7 cm (6' 7) 06/14/2020 11:23 AM CDT Body Mass Index 33.23 06/14/2020 11:23 AM CDT documented in this encounter Discharge Summaries Nba Paulino PA-C - 06/17/2020 12:34 PM CDT Images from the original note were not included. Ortho Discharge Summary Admission Date: 06/15/2020 Discharge Date: 06/17/20 Admitting Diagnosis: Osteoarthritis of right knee, unspecified osteoarthritis type [M17.11] Discharge diagnosis: S/p R TKA Procedure: Procedure(s) (LRB): TOTAL KNEE JOINT REPLACEMENT (Right) Date of Procedure: 06/15/2020 Surgeon: Dr. Murrieta Disposition: home Code Status: Full Discharge condition: stable HPI: Patient is a 69 y.o., he who presents with right knee pain secondary to osteoarthritis for scheduledtotal knee arthroplasty. For full details please refer to Dr. Murrieta' notes. Surgical management wasrecommended and patient underwent Procedure(s) (LRB): TOTAL KNEE JOINT REPLACEMENT (Right). Patient today doing well. Pain is mild and controlled. Patient denies dizziness, abdominal pain, nausea, issues voiding, calf pain or numbness/tingling. Blood pressures have improved. Hospital Course: Patient was admitted following the above noted procedure. Procedure was without complication. For full details please refer to operative note. Patient received routine karly-operative antibiotic and DVTprophylaxis. he was evaluated by physical therapy and will discharge to home in stable condition. Consults: Patient was followed as an inpatient by a medical consultation due to hypotension and significant history of cardiomyopathy and s/p ICD placement. Significant Studies: Lab Results Component Value Date Hemoglobin 12.3 (L) 06/17/2020 Hemoglobin 12.1 (L) 06/16/2020 Hemoglobin 12.5 (L) 06/16/2020 Lab Results Component Value Date Creatinine 0.76 06/15/2020 Recent Labs 06/17/20 0807 HGB 12.3* No results for input(s): INR, PTT in the last 24 hours. Invalid input(s): PT I/O last 3 completed shifts: In: 2357 [Oral:840; IV:1517] Out: 1500 [Urine:1500] Active Problems: Principal Problem: Status post total right knee replacement Active Problems: Hypertension S/P Maze operation for atrial fibrillation Primary cardiomyopathy (HRC) Idiopathic hypotension Past Medical Diagnoses: Patient Active Problem List Diagnosis ??? Hypothyroid (HRC) ??? Primary osteoarthritis of left knee ??? Complex tear of medial meniscus as current injury ??? Status post total right knee replacement ??? Ascending aorta dilation (HRC) ??? Atrial fibrillation (HRC) ??? History of aortic root repair ??? Hypertension ??? ICD (implantable cardioverter-defibrillator) in place ??? S/P Maze operation for atrial fibrillation ??? Primary cardiomyopathy (HRC) ??? Idiopathic hypotension Medications: Medication List START taking these medications oxyCODONE 5 MG immediate release tablet Commonly known as: ROXICODONE Take 1-2 Tablets by mouth every 4 hours as needed for Pain. Take 1 tablet for pain rated at 4-7. Take 2 tablets for pain rated 8-10. senna 8.6 MG tablet Commonly known as: SENOKOT Take 2 Tablets by mouth daily at bedtime. Take while on narcotics. Hold for loose stools. Indications: Constipation CHANGE how you take these medications acetaminophen 500 MG tablet Commonly known as: TYLENOL Take 2 Tablets by mouth three times a day. What changed: ?? medication strength ?? how much to take ?? when to take this ?? reasons to take this * rivaroxaban 20 MG tablet Commonly known as: Xarelto Take 1 Tablet by mouth every evening with a meal. Ok to resume after 5 day course of 10 mg per day. Indications: atrial fibrillation What changed: additional instructions * rivaroxaban 10 MG tablet Commonly known as: XARELTO Take 1 Tablet by mouth every evening with a meal for 5 days. Indications: Thrombosis prevention following orthopedic surgery. What changed: You were already taking a medication with the same name, and this prescription was added. Make sure you understand how and when to take each. * This list has 2 medication(s) that are the same as other medications prescribed for you. Read thedirections carefully, and ask your doctor or other care provider to review them with you. CONTINUE taking these medications acyclovir 5 % ointment Commonly known as: ZOVIRAX Entresto 97-103 MG tablet Generic drug: sacubitril-valsartan levothyroxine 200 MCG tablet Commonly known as: SYNTHROID LORazepam 1 MG tablet Commonly known as: ATIVAN rOPINIRole 1 MG tablet Commonly known as: REQUIP sotalol 120 MG tablet Commonly known as: BETAPACE spironolactone 25 MG tablet Commonly known as: ALDACTONE Where to Get Your Medications These medications were sent to [facility] [address] ?? oxyCODONE 5 MG immediate release tablet ?? rivaroxaban 10 MG tablet ?? senna 8.6 MG tablet Discharge Exam: BP 102/56 Pulse 64 Temp 36.7 ??C (98 ??F) (Oral) Resp 18 Ht 2.007 m (6' 7) Wt 133.8 kg (295 lb) SpO2 93% BMI 33.23 kg/m?? Normal exam - Patient is in no acute distress. Patient alert and oriented x 3, has normal respiratory effort, Distal CMS is intact. Calf is soft and non- tender. 2+ DP pulses. Abnormal exam - Dressing is c/d/i mepilex. Assessment and Plan: Status post Procedure(s) (LRB): TOTAL KNEE JOINT REPLACEMENT (Right) PLEASE REFER TO HOSPITALIST NOTES FOR DIAGNOSIS SPECIFICS DJD/osteoarthritis, right knee - s/p Procedure(s) (LRB): ?? TOTAL KNEE JOINT REPLACEMENT (Right). Pain managed. IS reinforced. ?? Bowel management- narcotic induced, senna. ?? Hgb monitoring - as expected, asymptomatic, no acute s/s of bleeding ?? Physical deconditioning - PT/OT, continue WBAT to Right lower extremity. Non-morbid Obesity with Comorbid conditions - Estimated body mass index is 33.23 kg/m?? as calculated from the following: Height as of this encounter: 2.007 m (6' 7). ?? Weight as of this encounter: 133.8 kg (295 lb). ?? VTE prophylaxis/Anticoagulation - Xarelto 10 mg PO daily x 5 days then resume 20 mg PO daily as usual. ?? Medicine to complete med rec prior to discharge Follow up: Discharge Procedure Orders Physical Therapy Referral Priority: Routine Referral Type: Therapies Number of Visits Requested: 1 Expiration Date: 08/14/20 Eat fiber (whole grains, fruits and vegetables) and drink plenty of fluids to prevent constipation. Pain medication can cause constipation. Resume your usual diet as you feel comfortable. Activity as tolerated. You may bear weight as tolerated on your operative leg Do the exercises instructed by your physical therapist at least twice daily Elevate your surgical leg above the level of your heart 2-3 times a day and as needed to decrease swelling. No pillows under your operative knee. You may shower. Let the water run over your dressing. Leave the dressing on until your first orthopedic follow up appointment. If you have trouble with your dressings, please call your surgeon. Do not soak in a bath tub, hot tub or pool until your incision is completely healed. Apply ice over your incision (not directly on your skin) as needed to ease discomfort and swelling. Do not apply creams, lotions, powder or hydrogen peroxide to your incision. Wear your edema control garment (ie: Tubigrip, [place] stocking or GABRIEL wrap) on the surgical leg only. Wear only during the day. May be off at night and to shower. Order Comments: NOTE: If you have any of the following symptoms, remove Tubigrip and notify your provider immediately: -Pain when applying or wearing Tubigrip -Numbness or tingling of toes or foot -Increased swelling of toes, foot or leg -Injury to foot or toes -Noticeable change in temperature of toes or foot -Change in color of toes -Change in wound drainage or appearance -Inability to ambulate or stand within a 24 hour period You must be accompanied by a responsible adult front end loader driver at the time you are discharged. Do not drive until you have been seen for your follow-up appointment and are OK???d for driving. Do not drink alcohol or make any major decisions, such as signing important papers or managing legalissues, while taking prescription pain medication. To prevent pneumonia after surgery: Order Comments: 1) Use your incentive spirometer 10 times an hour while you are awake and continue this for 2 weeks after your surgery. 2) Practice coughing after each set of incentive spirometer use 3) Practice good oral care. [place] your teeth and use mouthwash twice daily. Dental appointments after surgery: Order Comments: Please wait until you are 6 months out from surgery before any routine, non-urgent, dental appointments. If you have an emergent dental need prior to 6 months please call your orthopedic surgeon's office to discuss taking antibiotics prior to this emergent dental appointment. After 6 months you may need to take antibiotics prior to dental appointments. If you are unsure and this has not been discussed at one of your post-op appointments please contact your surgeon's office to discuss further. Educational handouts provided: Hip and Knee Replacement Care Guide Preparing for Surgery and Becoming Active Again Call your doctor if you have any of the following symptoms: (See below) Order Comments: Call your doctor if you have any of the following symptoms: 1. Fever of 101 degrees Fahrenheit or 38 degrees Celsius or higher and /or chills 2. Severe pain not relieved with pain medication 3. Bleeding from the incision that does not stop. 4. Signs of a surgical infection: increased or foul smelling drainage and/or extreme redness, warmth, tenderness or swelling around the incision and/ or separation of the skin closures Do not start antibiotics for incision/joint infection without contacting the orthopedic surgeon first. Pain Medication Refills: Order Comments: For pain medication refills please contact your pharmacy or surgeon's office. Pleaseallow at least 2 business days for these requests to be addressed. Pain medications will not be refilled on weekends, holidays, or after 4:30 PM on . Please be aware that some insurance companies have specific regulations on coverage of pain medication; please ensure you are familiar with your insurance prescription coverage. For medical issues, please contact your primary care physician Your stitches or ashley will be removed at your follow up appointment, about 10-14 days after your surgery. [facility]: For URGENT surgical issues and wound concerns please contact: (See below) Order Comments: Call [facility] Orthopedic Nurse Triage at [phone] Not all post-operative infections can be prevented, but early detection and proper treatment can prevent major catastrophes. Do not start antibiotics for incision infections without contacting the orthopedic surgeon first. IF in doubt, call the orthopedic surgeon. [facility]: For non-urgent orthopedic questions please contact your surgeon's nurse triage line Friday - Friday Order Comments: Call [facility] Orthopedic Nurse Triage at [phone] Friday-Friday 8:00 AM to 5:00 PM. No follow-up provider specified. Total time spent on discharge on day of discharge 30 minutes. For full discharge orders and instructions, please see the after visit summary for this hospitalization. Nba Paulino PA-C 12:34 PM 06/17/2020 documented in this encounter Discharge Instructions Discharge Instr - AnticoagulationDanay Fall, [facility] - 06/15/2020 2:37 PM CDT ANTICOAGULATION DISCHARGE SUMMARY NOTE AND TRANSFER ORDERS Anticoagulation indication: Atrial fibrillation Length of Therapy: Indefinite You are prescribed: rivaroxaban (Xarelto) 10 mg tablets - 1 tablet once a day for 5 days, then resume your usual dose of 20 mg daily to prevent a blood clot following orthopedic surgery. You have been given a dose of enoxaparin (Lovenox) today in the hospital. Your first dose of rivaroxaban is due to be taken today (06/17/2020) at dinner time. You are recovering from surgery. Watch your surgical incision for signs and symptoms of bleeding. Ifyou have bleeding at your surgical site go to the emergency department right away. Do not miss a dose of rivaroxaban. If you do miss a dose follow the instructions in the rivaroxaban guidebook. Avoid taking non-steroidal anti-inflammatory drugs, such as ibuprofen, aspirin or naproxen while taking rivaroxaban as this may increase your risk of bleeding. Monitor yourself for any signs or symptoms of bleeding. If you are bleeding go to the emergency department right away. Refer to the rivaroxaban guidebook to learn when you should seek immediate medicalattention in the emergency department. Refer to the rivaroxaban guidebook or contact your primary physician's office if you have any questions regarding your therapy. Danay Fall, PharmD., [facility] 11:24 AM 06/17/2020 documented in this encounter Medications at Time of Discharge Medication Sig Dispensed Refills Start Date End Date levothyroxine Take 1 Tablet by 0 06/16/2020 (SYNTHROID) 200 MCG mouth daily. tablet rivaroxaban (XARELTO) 10 Take 1 Tablet by 5 Tablet 0 06/15 MG tabletIndications: mouth every evening Thrombosis prevention with a meal for 5 following orthopedic days. Indications: surgery. Thrombosis prevention following orthopedic surgery. rOPINIRole (REQUIP) 1 MG Take 1 mg by mouth 0 tablet daily at bedtime. sacubitril-valsartan Take 1 [...] 5 % Apply topically. 0 201706/19/2021 ointment LORazepam (ATIVAN) 1 MG Take 2 mg by mouth as 0 06/19/2021 tablet needed for Anxiety. oxyCODONE (ROXICODONE) 5 Take 1-2 Tablets by 45 Tablet 0 07/24/2020 MG immediate release mouth every 4 hours tablet as needed for Pain. Take 1 tablet for pain rated at 4-7. Take 2 tablets for pain rated 8-10. rivaroxaban (XARELTO) 20 Take 1 Tablet by 0 06/1506/19/2021 MG tabletIndications: mouth every evening atrial fibrillation with a meal. Ok to resume after 5 day course of 10 mg per day. Indications: atrial fibrillation senna (SENOKOT) 8.6 MG Take 2 Tablets by 60 Tablet 0 201907/24/2020 tabletIndications: mouth daily at Constipation bedtime. Take while on narcotics. Hold for loose stools. Indications: Constipation documented as of this encounter Progress Notes David Alvarez RN - 06/17/2020 12:37 PM CDT Ortho Discharge O: Patient safely discharged to home. D: Patient is alert and oriented x 4. Discharge criteria met: Cleared by Medicine Cleared by Ortho Cleared by PT/OT. Vaccines: Patient Refused A: Discharge instructions and medications reviewed and given to patient and significant other. Written medication education material provided on opioids and blood thinner xarelto including possible side effects. Prescriptions filled by [facility] pharmacy. Belongings checklist reviewed with patient and significant other and belongings sent. Care plan and education record updated. Patient pre- medicated for discharge: Patient declined. R: Patient and significant other verbalizes understanding and teaches back discharge instructions. Patient discharged at 1230 by: wheelchair with staff. David Alvarez RN 06/17/2020, 12:39 PM Zion Horton MD - 06/17/2020 10:40 AM CDT HOSPITALIST PROGRESS NOTE Admit Date: 06/15/2020 Today's Date: 06/17/2020 Subjective: Doing well. No hypotensive symptoms. Realized that he should have taking his pain medication last night, as he did not sleep particularly well. We reviewed his cardiac history, with cardiology care being received through [place]. Objective: PHYSICAL EXAM: BP 102/56 Pulse 64 Temp 36.7 ??C (98 ??F) (Oral) Resp 18 Ht 2.007 m (6' 7) Wt 133.8 kg (295 lb) SpO2 93% BMI 33.23 kg/m?? I/O last 3 completed shifts: In: 2357 [Oral:840; IV:1517] Out: 1500 [Urine:1500] Pleasant alert comfortable and in no distress Skin: Good turgor Chest: Completely clear Heart: Regular without murmur Abdomen: Soft nontender benign Extremities: Trace edema Neurologic: Unremarkable LABS: Hemoglobin 12.3, stable Assessment/Plan: 69 yo s/p TKA who had hypotension post-op. Medicine service consulted. Status post total right knee replacement , POD #2 - medically stable. He can be discharged today. Discharge navigator reviewed. - anticoagulation management per orthopedic service has already been nicely outlined and low-dose Xarelto prescribed for ramp up, reviewed with patient ?? Idiopathic hypotension - heart failure patient was on Entresto. Blood pressures in the 80s and 90s not uncommon at all withthat medication. Well tolerated. He can continue on his usual cardiac medications at discharge. Primary cardiomyopathy with ICD - compensated - cont usual meds and Cardiology followup DVT prophylaxis: Xarelto ramp up, chronic medication, already outlined by orthopedics nicely Zion [facility] MD [facility] p: [phone] Erendira Packer OTR/[place] - 06/17/2020 8:11 AM CDT Occupational Therapy Occupational Therapy Hip/Knee Progress Note Age: 69 y.o. Sex: male Admit date: 06/15/2020 Subjective/General Information Diagnosis: TOTAL KNEE JOINT REPLACEMENT RIGHT Treatment Diagnosis: Decreased ADL/IADL independence, Impaired functional mobility and Decreased endurance/activity tolerance Communication: Verbal/appropriate Orientation: Oriented x 3 Patient Self Report: Patient reported feeling better today however pain is still present. Pain: Location: R knee Precautions: falls risk WBAT Gait/Mobility/AE: SBA ~ 50 feet with FWW Treatment Location: [facility] [address] Frequency: daily General Current living situation: Patient lives in a single family home with his . Prior ADL/IADL status: Patient is independent with all basic ADLs Current adaptive equipment: Tub bench/Shower chair, Grab bars: in shower, Comfort height toilet and Mobility devices: fww Occupation: Not assessed Objective Treatment Today/Patient Education ADL's: To further assess pt's safety and independence with all ADLs/IADLs for a safe return home pt participated in the following: -Functional mobility: SBA with FWW ~ 50 feet -Toilet: Patient completed transfer from FWW to raised toilet seat with arms and L grab bar SBA. -Shower: Patient completed walk in shower transfer to shower chair using horizontal grab bar SBA/CGA. Education provided to Patient on long handle sponge and to gather all material before shower and Patient in agreement. -Chair: Stand<>sit and sit<>stand SBA with education to reach back and push off from armrests instead of walker. -LE dressing: Re-educated Patient on use of levers lace machine operator for LE dressing and to dress affected leg first.Patient in agreement and stated he has a levers lace machine operator at home and feels he does not need to practice today. IADL's: Reminders on kitchen mobility today and to use counter for support and to obtain assistance as needed. Patient voiced his understanding. UE Function: WFL for ADLs Cognition: Able to follow directions throughout session. Vision: Not assessed Status of functional goals: ? Patient will demonstrate lower body dressing with Adaptive Equipment with standby assistance/supervision in 3 days. Patient declined practice today ? Patient will demonstrate walk-in/tub shower transfers with Adaptive Equipment with standby assistance/supervision in 3 days. CGA/SBA: Patient reported can assist and feels confident in task. ? Patient will demonstrate toileting/toilet transfer with Adaptive Equipment with standby assistance/supervision in 3 days. MET ? Patient will demonstrate safe chair/recliner transfer with standby assistance/supervision in 3 days. MET ? Patient will verbalize/demonstrate understanding of falls preventions with ADL/IADLs in 3 days. MET ?? shelter goal: Patient will maximize independence and safety with ADL/IADLs Assessment and Plan Assessment: Patient able to complete additional functional mobility and complete ADL tasks today with greater endurance and less symptoms. Anticipate Patient will be OK to discharge home today with support. Future Treatment Recommendations: Discharge OT Tolerance/Cooperation: Good Interdisciplinary Communication: PT Discharge Recommendations: Anticipate Patient will be safe to discharge home when medically ready with increased assistance with meal prep, home management, bathing, and driving. Patient reported his can assist him at discharge. Patient hopeful to discharge home today. Timed Code Treatment Minutes: 18 Total Treatment Minutes: 18 Therapist signature: DEBBY Gaston 8:11 AM 06/17/2020 Eleanor Pearl, PT - 06/17/2020 7:59 AM CDT Physical Therapy Inpatient Daily Progress Note Patient's diagnosis: R) TKA on 06/15/2020 secondary to degenerative arthrosis GENERAL INFORMATION Mood: pleasant Cooperation: full Treatment Location: [place] Special Equipment: None Precautions: falls risk Patient Self Report: feeling better today but more pain. Feels his leg is really swollen. Knows his exercises and no concerns for home. Today he states he has 2 platform steps to get into his home Pain: 7/10 in surgical leg OBJECTIVE Objective: -- Range of Motion: Decreased right knee flexion 91 degrees, extension limited by 17 degrees -- Strength: Uninvolved extremities WNL's -- Endurance: adequate for household mobility Patient???s treatment includes: Gait: Weight bearing status - R LE: full, as tolerated Equipment: wheeled walker Assistance: contact guard assist progressing to supervision Distance: 100 feet, Gait Pattern: Step to pattern progressing to step thru, increased UE use Instruction provided: Walker use, step sequence, Stairs: Up/down curb step with fww x 2 reps performing CGA to SBA Instruction: take one step at a time - leading up with the non-surgical/injured leg and leading downwith the surgical/injured leg. Transfers: Sit to Stand: SBA Other Treatments: posterior knee stretch x 1 minute right right sitting knee flexion x 10 reps Patient Education Provided: -- as above -- verbally reviewed HEP for home ASSESSMENT/PLAN Patient findings include: Patient's response to RX: good Barriers to Learning: none Assessment & Progress Toward Goals: Patient tolerated activities fairly well. He feels safe for home, from mobility standpoint feel this is appropriate although discussed with pt if not dischargingtoday will see in PM - pt in agreement Updated progress toward goals set on 06/15/2020 : Patient will transfer supine to/from sit with supervision in 1-3 days. MET Patient will transfer sit to/from stand with supervision in 1-3 days. MET Patient will ambulate with wheeled walker and modified independent for 200 feet in 1-3 days. IN PROGRESS Patient will climb 2 steps standby assist with most appropriate AD in 1-3 days. MET Patient will be independent with home exercise program in 1-3 days. MET Therapist Discharge Recommendations: pt feels safe to DC from mobility standpoint after AM session today - this is appropriate for home with OP PT. If patient does not DC today will plan for PM session(he is aware of this) as session in AM shortened Interdisciplinary Communication: OT Plan for Next Treatment: possible DC, if not - review TKA exercises, increase gait distance, focus on knee extension Timed codes: Therapeutic exercise x 19 minutes Total timed minutes: 19 Total treatment time: 19 - transport delay Therapist: Eleanor Pearl, PT 9:35 AM 06/17/2020 Donovan Sanchez MD - 06/16/2020 3:47 PM CDT DAILY PROGRESS NOTE Admit Date: 06/15/2020 SUBJECTIVE: Asked by Orthopedics service to consult on Mr. Petty for hypotension. He is POD#1 from R TKA. Surgery went well. Was out of it today, very tired and unable to participate in PT. Had Pain medication just prior to this. Was noted to by slightly hypotensive, was given 500cc bolus. Minimally dizzy earlier, but not now. No chest pain. Hgb 12.5 this am. He has an extensive cardiac history ofAfib,Cardiomyopathy, ICD and is anticoagulated. Pain controlled. No hx of anesthesia reaction or adverse reaction to pain medications. Comprehensive review of systems is otherwise negative. Patient Active Problem List Diagnosis ??? Hypothyroid (HRC) ??? Primary osteoarthritis of left knee ??? Complex tear of medial meniscus as current injury ??? Status post total right knee replacement ??? Ascending aorta dilation (HRC) ??? Atrial fibrillation (HRC) ??? History of aortic root repair ??? Hypertension ??? ICD (implantable cardioverter-defibrillator) in place ??? S/P Maze operation for atrial fibrillation ??? Primary cardiomyopathy (HRC) ??? Idiopathic hypotension MEDICATIONS: Tylenol Lovenox Toradol Levothyroxine Protonix Requip Entresto Sen[place]ot . OBJECTIVE: Vitals: Vital Signs Temp: 97.5 ??F (36.4 ??C), Pulse: 60, Resp: 18, SpO2: 92 %, BP: (!) 88/49, O2 Device: room air I/O last 3 completed shifts: In: 2764 [Oral:1480; IV:1284] Out: 750 [Urine:750] General appearance: NAD, alert, Mental status: oriented to Lungs: clear to auscultation bilaterally no retraction CV: regular rate and rhythm, S1, S2 , no edema Abdomen: soft, non-tender; bowel sounds normal, no obvious masses Skin: dry , no rashes noted eyes: conjunctiva clear, no icterus Neck supple, no mass Imaging: No new imaging Labs: Last CBC: Recent Labs 06/16/20 0756 HGB 12.5* ASSESSMENT/PLAN: Status post total right knee replacement , POD #1 Assessment: appears stable Plan: planning DC tomorrow per ORtho Idiopathic hypotension Assessment: Likely a combination of anesthesia, pain meds and multiple cardiac meds. Infection highly unlikely. Acute blood loss should be ruled out since he's on Lovenox and has been getting Toradol. Plan: HOLD Spironolactone tomorrow if SBP<90. We will check a stat Hgb now. Monitor. Encourage PO. Expect his BP will gradually improve. Consider EKG, CXR and additional labs in the unlikely event BP drops. Minimize usage of Toradol due to the Lovenox. OK to give Oxycodone later tonight at bedtime. Tylenol otherwise until then. Discussed with patient, spouse and bedside RN. Primary cardiomyopathy Assessment: appears optimized at this time. Plan: as above. Donovan Sanchez MD Angelica Jesus APRN, FLAKITA - 06/16/2020 2:46 PM CDT ORTHO PROGRESS NOTE 06/16/2020 Admission Date: 06/15/2020 Procedure: Procedure(s) (LRB): TOTAL KNEE JOINT REPLACEMENT (Right) Date of Procedure: 06/14/2020 Surgeon: Lit POD: 1 Subjective: Fatigue this afternoon. Denies dizziness, difficulty breathing, nausea, vomiting and calf pain. Painis controlled with current medications. He is anxious to discharge but agreeable to stay overnight if necessary. Discharge Preference: home The following were reviewed in EPIC - active problem list, medication list, allergies, family history, social history, medical and surgical history. The preoperative note was also reviewed. Objective: BP 90/50 Pulse 60 Temp 36.3 ??C (97.4 ??F) (Oral) Resp 18 Ht 2.007 m (6' 7) Wt 133.8 kg (295 lb) SpO2 95% BMI 33.23 kg/m?? Physical exam - Patient is in no acute distress. Patient alert, has normal respiratory effort, Distal CMS is intact. Calf is soft and nontender 2+ DP pulses. RLE - Dressing CDI. Swelling and ecchymosis as expected. No induration. +Dorsiflexion/extension. Labs/Significant Studies- Lab Results Component Value Date Hemoglobin 12.5 (L) 06/16/2020 Recent Labs 06/15/20 1507 CREATININE 0.76 GFR >60 Recent Labs 06/16/20 0756 HGB 12.5* Recent Labs 06/15/20 1507 INR 1.0 I/O last 3 completed shifts: In: 1640 [Oral:640; IV:1000] Out: 450 [Urine:400] Assessment and Plan: Status post right TKA POD 1 ?? Osteoarthritis/DJD, right knee, s/p R TKA. Pain controlled, continue acetaminophen and oxycodone PRN. Reviewed post operative pain expectations and IS use. Wound care mepilex border AG. ?? Hypertension - Extensive cardiac hx. Last echo with 40% EF. Hypotension today, 1 IV bolus given and encouraged patient to drink plenty of fluids. Hospitalist consult placed, appreciate their assistance. Takes Entresto, sotalol and spironolactone - placed holding parameters. Orthostatic BPs 97/46>90/50 ?? AICD present - noted ?? Hypothyroidism - synthroid ?? Hgb monitoring, Anticipate blood loss anemia post op - asymptomatic, no acute s/s of bleeding. Nofurther monitoring of hemoglobin unless patient becomes symptomatic. ?? Bowel Regimen - narcotic induced, senna and MOM. ?? Physical deconditioning - PT/OT while inpatient, continue WBAT to RLE. ?? Non morbid Obesity- Estimated body mass index is 33.23 kg/m?? as calculated from the following: ?? Height as of this encounter: 2.007 m (6' 7). ?? Weight as of this encounter: 133.8 kg (295 lb). ?? VTE prophylaxis/Anticoagulation/Afib - Lovenox to Xarelto ramp up dosing. Takes Xarelto 20 mg Disposition Plan: Discharge to home pending BP improvement and therapy clearance, likely tomorrow Angelica Jesus APRN, HERB COUNSELOR 2:46 PM 06/16/2020 Patient switched from extended recovery status to inpatient due to hypotension and need for continued management and monitoring of blood pressure. Eleanor Pearl, PT - 06/16/2020 1:52 PM CDT PM Physical Therapy Treatment session: Attempted to see patient bedside for PT session (pt declined PT in satellite). Patient in recliner very sleepy and present. Patient reports he is whooped and not up for therapy. He states he hasno stairs at home and is more concerned about his lower BP. When asked, patient reports he has one step to get into his home. He stated he knew how to perform the step for home leading up with his surgical leg. Therapist communicated to lead up with non surgical leg to get the power up each step and lead down with surgical leg. Discussed purpose of PT to try these activities to assure safe to performat home. At this time, patient was in and out of sleeping. Communicated plan to schedule therapy isauro riveramarty. Patient nodded head and in agreement. Eleanor Pearl, PT 1:51 PM 06/16/2020 Eleanor Pearl, PT - 06/16/2020 7:58 AM CDT Physical Therapy Inpatient Daily Progress Note Patient's diagnosis: R) TKA on 06/15/2020 secondary to degenerative arthrosis GENERAL INFORMATION Mood: pleasant Cooperation: full Treatment Location: [facility] Special Equipment: None Precautions: falls risk Patient Self Report: nauseated after OT reports agreement with PM PT session Pain: 5/10 in surgical leg OBJECTIVE Objective: -- Range of Motion: Decreased right knee flexion 95 degrees, extension limited by 16 degrees -- Strength: Uninvolved extremities WNL's -- Endurance: inadequate for household mobility and inadequate for community mobility Patient???s treatment includes: Gait: Weight bearing status - R LE: full, as tolerated Equipment: wheeled walker Assistance: contact guard assist Distance: 15 feet, Gait Pattern: Step to pattern progressing to step thru, increased UE use Instruction provided: Walker use, step sequence, how to use UE to take weight of R) LE as needed. WBAT Stairs: Not tested Transfers: Sit to Stand: CGA x 2 reps and initial verbal cues for hand placement with transfer Supine to Sit: supervision Other Treatments: Exercise: Supine exercises x 5-7 reps each right LE: --ankle pumps --quad sets --hamstring sets --heel slides with no assist --straight leg raise with no assist --short arc quad with no assist -- posterior knee stretch x 1 minute right sitting knee flexion x 8 reps Patient Education Provided: -- as above -- exercise technique -- shared ROM -- recommend PM session ASSESSMENT/PLAN Patient findings include: Patient's response to RX: good Barriers to Learning: none Assessment & Progress Toward Goals: Patient nauseated at beginning of session. Once resolved no further throughout treatment session. Does require verbal cues and assist for safety. Great knee flexion POD1. Will benefit from at least PM session for stairs Updated progress toward goals set on 06/15/2020 : Patient will transfer supine to/from sit with supervision in 1-3 days. MET Patient will transfer sit to/from stand with supervision in 1-3 days. IN PROGRESS Patient will ambulate with wheeled walker and modified independent for 200 feet in 1-3 days. IN PROGRESS Patient will climb 2 steps standby assist with most appropriate AD in 1-3 days. NOT TESTED Patient will be independent with home exercise program in 1-3 days. MET Therapist Discharge Recommendations: if pt able to perform stairs, anticipate will be able to DC after PM session. Would defer to OT as pt nauseated during their session for ADLs. OP PT Interdisciplinary Communication: OT Plan for Next Treatment: Initiate stairs, increase gait, review TKA therex Timed codes: Therapeutic exercise x 27 minutes Total timed minutes: 27 Total treatment time: 27 Therapist: Eleanor Pearl, PT 9:02 AM 06/16/2020 Erendira Packer, OTR/L - 06/16/2020 7:40 AM CDT Occupational Therapy Occupational Therapy Hip/Knee Progress Note Age: 69 y.o. Sex: male Admit date: 06/15/2020 Subjective/General Information Diagnosis: TOTAL KNEE JOINT REPLACEMENT RIGHT Treatment Diagnosis: Decreased ADL/IADL independence, Impaired functional mobility and Decreased endurance/activity tolerance Communication: Verbal/appropriate Orientation: Oriented x 3 Patient Self Report: Patient reported feeling more nauseous today and feels this could be due to medication. Pain: Location: R knee Precautions: falls risk WBAT Gait/Mobility/AE: CGA ~ 5 feet with FWW Treatment [facility] Frequency: daily General Current living situation: Patient lives in a single family home with his . Prior ADL/IADL status: Patient is independent with all basic ADLs Current adaptive equipment: Tub bench/Shower chair, Grab bars: in shower, Comfort height toilet and Mobility devices: fww Occupation: Not assessed Objective Treatment Today/Patient Education ADL's: To further assess pt's safety and independence with all ADLs/IADLs for a safe return home pt participated in the following: -Functional mobility: CGA with FWW ~ 5 feet. Patient reported feeling fatigued and more nauseous today and declined further ambulation. BP: 137/65 sitting -LE dressing: Patient educated on use of AE for LE dressing. Patient reported his will also assist him at discharge. -Chair: Sit<>stand: CGA with education to push off from the chair and not the walker. -Falls prevention: Educated pt on fall prevention at home including keeping walkways clear (i.e. removing throw rugs, extension cords, furniture in the way, etc.), keeping phone/pendant close for safety, utilizing AE in bathroom (i.e. grab bars, shower chair, etc.) and AD during ambulation, keeping necessary items within reach, and limiting bending/stooping/reaching during activity. IADL's: Not assessed UE Function: WFL for ADLs Cognition: Able to follow directions throughout session. Vision: Not assessed Status of functional goals: ? Patient will demonstrate lower body dressing with Adaptive Equipment with standby assistance/supervision in 3 days. ? Patient will demonstrate walk-in/tub shower transfers with Adaptive Equipment with standby assistance/supervision in 3 days. ? Patient will demonstrate toileting/toilet transfer with Adaptive Equipment with standby assistance/supervision in 3 days. ? Patient will demonstrate safe chair/recliner transfer with standby assistance/supervision in 3 days. CGA 06/16 ? Patient will verbalize/demonstrate understanding of falls preventions with ADL/IADLs in 3 days. MET ?? assistant terminal manager goal: Patient will maximize independence and safety with ADL/IADLs ?? Assessment and Plan Assessment: Patient limited by fatigue and nausea today that limited his functional mobility and ability to complete ADLs. Continue POC. Future Treatment Recommendations: To satellite: increase functional mobility, toilet, shower, LE dressing with AE, chair Tolerance/Cooperation: fair Interdisciplinary Communication: PT Discharge Recommendations: Unable to make full discharge recommendations at this time due to inability to further assess functional mobility secondary to nausea. Based on today's performance would anticipate patient will need increased assistance for transfers, meal prep, home making, and driving. Timed Code Treatment Minutes: 20 Total Treatment Minutes: 20 (Patient tolerance due to nausea) Therapist signature: VÍCTOR Gaston/Phoebe 12:21 PM 06/16/2020 Beatrice Clifford, PT - 06/15/2020 4:56 PM CDT Physical Therapy Inpatient Initial Evaluation Date of Admit: 06/15/2020 History of current medical diagnosis: R) TKA on 06/15/2020 secondary to degenerative arthrosis Rehab Diagnosis: Pain, Decreased range of motion, Weakness, Deconditioning, Impaired mobility, Decreased balance and Risk of falls Past Medical History: Past Medical History: Diagnosis Date ??? Atrial fibrillation (HRC) ??? Hypertension ??? Hypothyroid (HRC) 12/14/2018 ??? ICD (implantable cardioverter defibrillator) pocket hematoma ??? Primary osteoarthritis of left knee 03/15/2020 severe lateral (R > L) mild PF (L > R) ??? Status post total right knee replacement 06/15/[address] Murrieta at [facility]. Order: Eval and Treat: Total joint protocol Twice daily For Gait training: Straight Leg Raises, active abduction to operative leg. Isometric, AAROM, AROM to operative leg. Strengthening exercises to other extremities as needed. SUBJECTIVE Patient reports: It helps to move positions Mood: alert, quiet - did not say much Pain: Location: right knee 05/08 Support System: - present for session Prior Functional Level: Mobility: --Independent with community mobility with no assistive device. --Independent with household mobility with no assistive device. Assistance provided by: no assistance needed Home Environment: house Stairs: 2 steps to enter home: no rail Current Equipment Available: wheeled walker, did not ask if he has a SEC Patient PT Goals: To be able to walk without pain Patient History: ?? Moderate Complexity: 1-2 personal factors and/or comorbidities that impact plan of care: .afib, HTN OBJECTIVE Treatment Location: Bedside Special Equipment: None, RN connected IV after he got to the EOB Precautions: falls risk Orientation: Did not formally assess Cooperation: full -- Range of Motion: Decreased right knee -- Strength: Uninvolved extremities WNL's -- Endurance: inadequate for household mobility and inadequate for community mobility -- Balance: -- no LOB noted during session Standardized test: [facility] 5 Items (out of 20 points): Raw Score: 15, Standardized Score: 38.88, G Code: CK, 44.61% impaired Suggested AM-[facility] Basic Mobility Stage: 34-51 - LIMITED MOVING INDOORS: This score suggests significant difficulty in moving about independently and the need for assistance. The patient may be able to move about in a small area of the home that has been adapted to eliminate safety hazards. The patient may have difficulty moving from a sitting to standing position, climbing stairs and may have a great deal of difficulty moving about outdoors and in the community. Gait: Weight bearing status - R LE: full, as tolerated Equipment: wheeled walker Assistance: contact guard assist Distance: bed to chair Gait Pattern: Step to pattern, increased UE use Instruction provided: Walker use, step sequence, how to use UE to take weight of R) LE as needed. WBAT Stairs: Not tested Transfers: Sit to Stand: min A with bed height elevated Supine to Sit: contact guard assist Clinical Examination: ?? High Complexity: Addressed 4 or more elements from body structures and functions (see above), and/or functional limitations as noted below. Today's Intervention: Patient was anxious to sit up again (had just done with OT)- was half way out of bed so bed exercises were not done. Seated - LAQ x 10 reps R) LE Education/Handouts: PT plan for session and tomorrow. Cues as above. Icing and ankle pumps Falls Prevention Steps Implemented: Patient was left up in chair with Chair alarm on, call light in lap and tray in front of patient. Patient was educated to ask for assist before getting up. Reviewed with patient how to use the call light to get nurse. *nurse in room when therapist left the room Multidisciplinary Communication: RN present for session Timed codes: None Total timed minutes: 0 Total treatment time: 25 ASSESSMENT PT Clinical Presentation: ?? Moderate Complexity: Evolving Clinical Presentation with changing clinical characteristics Clinical Decision Making: ?? Moderate Complexity Eval Patient's impairments are: Decreased strength in R) LE Decreased ROM in R) knee Decreased endurance Pain Functional limitations: Patient unable to perform bed mobility independently Patient unable to transfer independently Patient unable to ambulate independently Patient unable to climb stairs independently Increased risk of falls Goals/Functional Outcomes: Patient will transfer supine to/from sit with supervision in 1-3 days. Patient will transfer sit to/from stand with supervision in 1-3 days. Patient will ambulate with wheeled walker and modified independent for 200 feet in 1-3 days. Patient will climb 2 steps standby assist with most appropriate AD in 1-3 days. Patient will be independent with home exercise program in 1-3 days. Barriers to Learning: none Rehab Potential: Good PLAN Planned intervention/education: Evaluation Therapeutic Exercise Therapeutic Activity Gait Training Patient/family education Home exercise program instruction Frequency: twice a day Duration: 1-3 days Goals and Plan of Care discussed with patient/family; patient consents to treatment: Yes Discharge Recommendations: Patient is post-op day zero after joint replacement. Patient's desired discharge plan is home with family assistance and outpatient PT. Plans to go to OP PT in [facility] Plan for Next Treatment: ambulation with FWW, measure ROM, TKA exercises, transfers, stairs when appropriate NOTE: The clinician's signature certifies medical necessity for the treatment plan above. Lianna Cano RN - 06/15/2020 3:57 PM CDT POST-OP O: Patient will have a stable post-op period. D: Pt arrived to room [address] [place] [address], at 14:20. Patient is alert and oriented x 4. Initial Vital Signs: Temp: 36.6 ??C (97.9 ??F) (06/15/20 1420) Pulse: 68 (06/15/20 1500) Resp: 18 (06/15/20 1500) BP: (!) 141/85 (06/15/20 1500) SpO2: 99 % (06/15/20 1500) Pain rated at: 3. See Assessment and Doc Flowsheets for equipment and lines/drains. Acewrap dressing is clean, dry, intact. A: Monitor vital signs and assess patient per protocol. Patient oriented to bed controls and call lights. Discussed plan of care with patient and caregiver. See Education Record. R: Patient settled to room. Will continue to monitor. Erendira Packer OTR/Phoebe - 06/15/2020 3:32 PM CDT Occupational Therapy Occupational Therapy Orthopedic Hip/Knee ADL Evaluation Date of admit: 06/15/2020 7:52 AM History of current medical diagnosis: TOTAL KNEE JOINT REPLACEMENT RIGHT Past medical history: Past Medical History: Diagnosis Date ??? Atrial fibrillation (HRC) ??? Hypertension ??? Hypothyroid (HRC) 12/14/2018 ??? ICD (implantable cardioverter defibrillator) pocket hematoma MD order: Eval and Treat: Total Joint Protocol General Current living situation: Patient lives in a single family home with his . Prior ADL/IADL status: Patient is independent with all basic ADLs Current adaptive equipment: Tub bench/Shower chair, Grab bars: in shower, Comfort height toilet and Mobility devices: fww Occupation: Not assessed Precautions: Weight bearing status: WBAT Communication: Verbal/appropriate Location of treatment: bedside Objective Information Current upper extremity ROM: Right: WFL Left: WFL Current upper extremity strength: Right: WFL Left: WFL Current Visual Functioning: Appears Intact Current Cognitive Functioning: Orientation: Oriented x 3 Current ADL Performance: Grooming/Hygiene: to be assessed Upper body dressing: to be assessed Lower body dressing: Min-Mod A to thread B LE into shorts. CGA for support during sit<>stand while Patient pulled up shorts over hips. Recliner transfer: to be assessed Bed mobility: Supine<>sit: Mod I with increased time and effort. Sit<>supine: CGA to support R LE back into bed. Toileting/toilet transfer: to be assessed Bathing/Tub/Shower transfer: to be assessed Meal Prep: will assist at discharge Homemaking/Home management: will assist at discharge Gait/mobility: Sit<>stand Close CGA x2. Patient stood for ~ 1 minute, then requested to sit down. No ambulation attempted today. Treatment Today: Educated patient on role of OT and progression of care. and Instructed patient thatthey have NO specific precautions related to surgery, however patient should let AROM, strength, andpain level determine resumption of activity. Recommended adaptive equipment: To be assessed Resource information provided: No Response to treatment: Endurance/activity tolerance: Patient tolerated treatment well. Cooperation: good Pain scale 0 to 10 (low to high): At rest 10/10 With activity 10/10 Functional Limitations/Impairments Patient's functional limitations are: ?? Decreased ADL/IADL independence ?? Decreased functional mobility ?? Decreased activity tolerance/endurance Barriers to Learning Patient's barriers to learning are: ?? none Occupational Therapy Interventions Patient's Occupational Therapy interventions are: ?? Functional mobility ?? AE recommendations ?? Strengthening ?? Transfers ?? Endurance Outcomes The following goals have been established: ?? Patient and family goals: To return to PLOF ?? Functional outcome goals: ?? Patient will demonstrate lower body dressing with Adaptive Equipment with standby assistance/supervision in 3 days. ?? Patient will demonstrate walk-in/tub shower transfers with Adaptive Equipment with standby assistance/supervision in 3 days. ?? Patient will demonstrate toileting/toilet transfer with Adaptive Equipment with standby assistance/supervision in 3 days. ?? Patient will demonstrate safe chair/recliner transfer with standby assistance/supervision in 3 days. ?? Patient will verbalize/demonstrate understanding of falls preventions with ADL/IADLs in 3 days. ?? assistant terminal manager goal: Patient will maximize independence and safety with ADL/IADLs ?? Continuation of inpatient OT services: Frequency: daily Duration: 1-3 day(s) ?? Goals reviewed with patient/family: Yes ?? Other services: Physical Therapy ?? Rehab potential: Good ?? Multidisciplinary Plan of Care completed: Yes ?? Evaluation Complexity Rating: Occupational profile and history: low Assessment: low Clinical decision making: low Overall complexity rating: low ?? Timed Code Treatment Minutes: 0 eval only ?? Total Treatment Minutes: 20 ?? Plan for next session: To satellite: chair, toilet, shower, LE dressing with AE, falls prevention Initial Discharge Recommendations Patient's initial discharge recommendation is: Unable to make full discharge recommendations at this time due to inability to assess functional mobility. . Based on today's performance would anticipate patient will need increased assistance for meal prep, home making, and driving. Signature: DEBBY Gaston 4:06 PM 06/15/2020 NOTE: The clinician's signature certifies medical necessity for the treatment plan above. documented in this encounter H&P Notes Sanjay Murrieta MD - 06/15/2020 10:01 AM CDT Surgery Update for Preop History and Physical For 06/15/2020 scheduled procedure Update to H&P includes: Patient and/or family denies any health changes since the H&P This patient has been evaluated by me today and has been found to be a suitable candidate for surgery. Sanjay Murrieta MD 06/15/2020 Source Note - ProviderCecille MD - 06/15/2020 12:00 AM CDT documented in this encounter Procedure Notes Sanjay Murrieta MD - 06/15/2020 12:00 PM CDT NAME: RAIN PETTY MR#: [id number] CSN: [id number] AUTHENTICATING CLINICIAN: Sanjay Murrieta MD CONFIRM #: [id number] LOC: 1 OPERATIVE REPORT DATE OF OPERATION: 06/15/2020 : 1950 SURGEON: Sanjay Murrieta MD PREOPERATIVE DIAGNOSIS: Advanced degenerative arthrosis, right knee. POSTOPERATIVE DIAGNOSIS: Advanced degenerative arthrosis, right knee. PROCEDURE: Cemented right total knee arthroplasty using Mook Persona components. JET DYEING MACHINE OPERATOR: KRANTHI Cheek HISTORY: The patient is a 69-year-old gentleman with advanced and severe lateral compartment DJD and patellofemoral involvement involving his right knee. He also has a foot deformity and a planovalgus foot the contributes to further deformity and lateral pain. He has failed conservative management. He is admitt ed at this time for a right total knee arthroplasty. The nature of his surgery, risks, complications, and the expected outcome are reviewed and discussed with the patient preoperatively and verbal consent obtained. OPERATIVE PROCEDURE: Patient brought to the operating room. He was placed supine on the OR table. A spinal anesthesia block was successfully placed. His right lower extremity was prepped and draped in the usual sterile fashion. An appropriate pause for limb identification was performed. He was given Ancef 3 g IV as well as 1 g of tranexamic acid within 1 hour of the procedure. The leg was exsanguinated and the tourniquetelevated to 250 mmHg. A midline incision was created followed by a median parapatellar arthrotomy incision. The patella was subluxed laterally and a drill hole placed in the distal femur for the femoral alignment guide. Thefemoral alignment guide was passed up the femoral shaft and the femoral cutting block secured to thedistal femur. Following this, the distal femoral cut was made. We added 2 mm to enhance the distal cut. The size 12 femoral cutting block was secured to the distal femur and the anterior, posterior, and chamfer cuts were made in sequence. Attention was directed to the tibia and the tibial alignment. An extramedullary tibial alignment rodwas used to place the proximal tibial cutting block. The proximal tibial cut was made, and we had torevise the proximal tibial cut as it seemed to be in valgus and we resected more of the medial tibia. He had excessive wear posteriorly on both medial and lateral tibial plateaus. Following this, we sized the tibia to a size H, and an H trial was placed. A drill hole was placed through this and a broach used to cut for a stemmed tibial tray. The trial tibia again was secured and then the trial femur was placed and a box cut made for a posterior stabilized femoral component. Components fit satisfactorily and alignment was satisfactory with an 11 mm polyethylene spacer. The undersurface of patella was resected and patella was sized to a 41 mm button, which fit satisfactorily and tracked satisfactorily. All trial components were removed. Bony surfaces were jet lavaged and the Muller solution was injected in a periarticular fashion. Cement was mixed on the back table and components were cemented in sequence with the tibia first followed by the femur, and then the patella. Excessive cement was removed. The cement was allowed to harden in extension with an 11 mm thick polyethylene spacer. At this point, more of the Muller solution was injected and a Betadine brown wash was accomplished. We then removed the trial polyethylene, selected an 11 mm thick final polyethylene spacer and this was snapped into place. A final irrigation was accomplished, and the arthrotomy incision was closed with interrupted [id number] 0 Vicryl sutures. Subcutaneous closure with 0 Vicryl was followed by staple approximation of the skin edges. A sterile bulky dressing was applied. The tourniquet and legholder were removed, and [facility] in satisfactory condition. There were no intraoperative complications noted, and he seemed to be doing well in the PAR. ALF:LYNNE C: CONFIRM #: [id number] documented in this encounter Consult Notes Keri Morales LSW - 06/17/2020 10:36 AM CDTAssociated Order(s): CARE INTEGRATION CONSULT Care Integration: Received Care Integration consult for discharge planning. Reviewed chart including therapy recommendations and attending provider???s progress note. Patient???s goal is to discharge home with outpatient therapy. Care Integration will not assess/meet patient face to face because no transition needs are required at this time. If further discharge needs arise, please page the assigned Care Integration treatment team to assess. FRANCHESCA Roque 10:37 AM 06/17/2020 documented in this encounter Plan of Treatment Upcoming Encounters Date Type Specialty Care Team Description 05/29/2022 Appointment Orthopedics Kathi Fry PA-C [address] [place] [address] (Wo rk) Scheduled Referrals Name Type Priority Associated Diagnoses Order S chedule Physical Therapy Referral Routine Status post total right knee Ordered: 06/15/2020 replacement documented as of this encounter Procedures Procedure Name Priority Date/Time Associated Diagnosis Comme nts HEMOGLOBIN, BLOOD Routine 06/17/2020 8:07 Results for this AM CDT procedure are i n the results section. HEMOGLOBIN, BLOOD STAT 06/16/2020 3:47 Results for this PM CDT procedure are i n the results section. HEMOGLOBIN, BLOOD Routine 06/16/2020 7:56 Results for this AM CDT procedure are i n the results section. CREATININE / GFR Routine 06/15/2020 3:07 Results for this PM CDT procedure are i n the results section. AST Routine 06/15/2020 3:07 Results for this PM CDT procedure are i n the results section. ALBUMIN Routine 06/15/2020 3:07 Results for this PM CDT procedure are i n the results section. INR/PROTIME Routine 06/15/2020 3:07 Results for this PM CDT procedure are i n the results section. XR KNEE RT 2 VIEWS Routine 06/15/2020 3:06 Result s for this PM CDT procedure are i n the results section. TOTAL KNEE JOINT 06/15/2020 10:12 Osteoarthritis of REPLACEMENT AM CDT right knee, unspecified osteoarthritis type BEDSIDE GLUCOSE Routine 06/15/2020 8:51 Results f or this MONITOR POCT AM CDT procedure are i n the results section. documented in this encounter Results (ABNORMAL) Hemoglobin (06/17/2020 8:07 AM CDT) athologist Signature Hemoglobin 12.3 (L) 13.5 - 06/17/2020 [facility] 17.5 g/dL 8:16 AM CDT LABORATORY Specimen Anatomical Collection Method / Collection Time Recei salud Time (Source) Location / Volume Laterality Blood Venipuncture / 06/17/2020 8:07 06/17/2020 8:13 Unknown AM CDT AM CDT Donovan Sanchez MD LAB_1 Performing Organization Address City/[facility] Phon e Number [facility] [address] [place] [id number] (ABNORMAL) Hemoglobin (06/16/2020 3:47 PM CDT) athologist Signature Hemoglobin 12.1 (L) 13.5 - 06/16/2020 [facility] 17.5 g/dL 3:54 PM CDT LABORATORY Specimen Anatomical Collection Method / Collection Time Recei aslud Time (Source) Location / Volume Laterality Blood Venipuncture / 06/16/2020 3:47 06/16/2020 3:51 Unknown PM CDT PM CDT Donovan Sanchez MD LAB_1 Performing Organization Address City/[facility] Phon e Number [facility] [address] [place] [address] (ABNORMAL) Hemoglobin in AM POD #1 (06/16/2020 7:56 AM CDT) athologist Signature Hemoglobin 12.5 (L) 13.5 - 06/16/2020 [facility] 17.5 g/dL 8:06 AM CDT LABORATORY Specimen Anatomical Collection Method / Collection Time Recei salud Time (Source) Location / Volume Laterality Blood Venipuncture 06/16/2020 7:56 06/16/2020 8 :02 Butterfly / Unknown AM CDT AM CDT Sanjay Murrieta MD LAB_1 Performing Organization Address [facility] Phon e Number [facility] [address] [place] [address] Creatinine / GFR (06/15/2020 3:07 PM CDT) athologist Signature Creatinine 0.76 0.73 - 06/15/2020 [facility] 1.18 mg/dL 4:32 PM CDT LABORATORY GFR, Estimated >60 >60 06/15/2020 [facility] mL/min/1.7 4:32 PM CDT LABORATORY 3m2 Specimen Anatomical Collection Method / Collection Time Recei salud Time (Source) Location / Volume Laterality Blood Venipuncture 06/15/2020 3:07 06/15/2020 3 :13 Butterfly / Unknown PM CDT PM CDT Sanjay Murrieta MD LAB_1 Performing Organization Address City/[facility] Phon e Number [facility] [address] [place] [address] AST (06/15/2020 3:07 PM CDT) athologist Signature AST (SGOT) 18 10 - 40 U/L 06/15/2020 [facility] 4:32 PM CDT LABORATORY Specimen Anatomical Collection Method / Collection Time Recei salud Time (Source) Location / Volume Laterality Blood Venipuncture 06/15/2020 3:07 06/15/2020 3 :13 Butterfly / Unknown PM CDT PM CDT Sanjay Murrieta MD LAB_1 Performing Organization Address [facility] Phon e Number [facility] [address] [place] [address] (ABNORMAL) Albumin (06/15/2020 3:07 PM CDT) athologist Signature Albumin 3.4 (L) 3.5 - 5.0 06/15/2020 [facility] g/dL 4:32 PM CDT LABORATORY Specimen Anatomical Collection Method / Collection Time Recei salud Time (Source) Location / Volume Laterality Blood Venipuncture 06/15/2020 3:07 06/15/2020 3 :13 Butterfly / Unknown PM CDT PM CDT Sanjay Murrieta MD LAB_1 Performing Organization Address City/State/ZIP Code Phon e Number [facility] [address] [place] [address] INR/Protime (06/15/2020 3:07 PM CDT) P athologist Signature Protime 13.3 11.8 - 14.6 06/15/2020 [facility] Seconds 3:29 PM CDT LABORATORY INR 1.0 0.9 - 1.1 06/15/2020 [facility] 3:29 PM CDT LABORATORY Specimen Anatomical Collection Method / Collection Time Recei salud Time (Source) Location / Volume Laterality Blood Venipuncture 06/15/2020 3:07 06/15/2020 3 :13 Butterfly / Unknown PM CDT PM CDT Narrative [facility] - 06/15/2020 3:29 P M CDT Therapeutic range determined by protocol established by anticoagulation provider. Sanjay Mrurieta MD LAB_1 Performing Organization Address City/[facility]/ZIP Code Phon e Number [facility] [address] [place] [address] XR Knee Rt 2 Views (06/15/2020 3:06 PM CDT) Anatomical Region Laterality Modality Lower Extremity, Knee Radiographic Imagi ng Specimen (Source) Anatomical Collection Method Collection Time Re ceived Time Location / / Volume Laterality 06/15/2020 2:37 PM CDT Impressions 06/15/2020 3:09 PM CDT COMPARISON: ??12/01/2019. FINDINGS: ??Interval right cemented TKA with patellar resurfacing. Hardware is well seated. Expected soft tissue emphysema and skin ashley. Large knee effusion. Procedure Note Jose G Herrera MD - 06/15/2020Formatt ing of this note might be different from the original. IMPRESSION COMPARISON: 12/01/2019. FINDINGS: Interval right cemented TKA wi th patellar resurfacing. Hardware is well seated. Expected soft tissue emphysema and skin ashley. Large knee effusion. Sanjay Murrieta MD RAD GD Bedside Glucose Monitor (06/15/2020 8:51 AM CDT) P athologist Signature Glucose, Whole 99 70 - 180 06/15/2020 [facility] Blood mg/dL 9:20 AM CDT LABORATORY Specimen Anatomical Collection Method Collection Time Receive d Time (Source) Location / / Volume Laterality Blood 06/15/2020 8:51 AM 0 9:20 CDT AM CDT Sanjay Murrieta MD LAB_1 Performing Organization Address City/State/ZIP Code Phon e Number [facility] [address] [place] [address] documented in this encounter Visit Diagnoses Diagnosis Status post total right knee replacement - Primary Idiopathic hypotension Hypotension, unspecified Primary cardiomyopathy (HRC) Other primary cardiomyopathies Hypertension (HRC) Unspecified essential hypertension S/P Maze operation for atrial fibrillati on Other postprocedural status documented in this encounter Admitting Diagnoses Diagnosis Osteoarthritis of right knee Osteoarthrosis, unspecified whether gene ralized or localized, lower leg documented in this encounter Administered Medications Inactive Administered Medications - up to 3 most recent administrations Medication Order MAR Action Action Date Dose Rate Site 0.9% sodium chloride bolus 500 mL Started 06/16/2020 11:12 AM CDT 500 mL 500 mL, Intravenous, Administer over 1 Hours, ONCE, On Fri06/16/20 at 1115, For 1 dose acetaminophen (TYLENOL) tablet 1,000 mg Given 06/15/2020 9:03 AM CDT 1,000 mg 1,000 mg, Oral, ONCE, On Fri06/15/20 at 0830, For 1 dose, Give in Preop., Pre-op acetaminophen (TYLENOL) tablet 650 mg Given 06/17/2020 11:39 AM CDT 650 mg 650 mg, Oral, QID, First dose on Fri06/15/20 at 1600, Until Discontinued, Post-op Given 06/17/2020 7:52 AM CDT 650 mg Given 06/16/2020 7:41 PM CDT 650 mg ceFAZolin (aka ANCEF) 2 g in dextrose Started 06/16/2020 2:27 AM CDT 2 g 200 mL/hr 100 ml IVPB 2 g, Intravenous, Administer over 30 Minutes, Q8H (NON-STND), First dose on Fri06/15/20 at 1830, For 2 doses, Post-op Started 06/15/2020 6:24 PM CDT 2 g 200 mL/hr enoxaparin (LOVENOX) injection Given 06/17/2020 7:58 AM CDT 30 m g Abdominal Tissue 30 mg 30 mg, Subcutaneous, BID, First dose on Fri06/16/20 at 0800, Until Discontinued, For first dose: If patient is back from surgery before 1400, give first dose in the evening day of surgery. If patient is back from surgery after 1400 start first dose in the morning POD #1., Post-op Given 06/16/2020 7:43 PM CDT 30 mg Abdom inal Tissue Given 06/16/2020 7:38 AM CDT 30 mg Abdom inal Tissue hydrocortisone 1 % cream Topical, TID PRN, Rash, Itching, Startin g on Faye 06/15/20 at 1433, Apply topically to affected areas Hazardous waste disposal required. HYDROmorphone (DILAUDID) injection 0.2-0 .4 mg Given 06/15/2020 4:06 PM CDT 0.4 mg 0.2-0.4 mg, Intravenous, Q1H PRN, Other, Severe Pain (pain score 8-10) if patient is unable to take ORAL or for pain score increasing by 3 in 30 minutes., Starting on Fri06/15/20 at 1407, Until 06/17/20 at 1406, For 48 hours, May administer 1 hour after ORAL opioid administration if given for pain score escalation. Do NOT administer at the same time as ORAL opioids. HOLD if on SKIDWAY MAN., Post-op ketorolac (TORADOL) injection 15 mg Given 06/17/2020 10:16 AM CDT 15 mg 15 mg, Intravenous, Q6H (NON-STND), First dose on Faye 06/15/20 at 1530, Last dose on Fri06/17/20 at 0930, For 48 hours, Do not give if CrCl <60 or history of GI bleed. Start at least 6 hours after celecoxib (CELEBREX) if given., Post-op Given 06/17/2020 3:30 AM CDT 15 mg Given 06/16/2020 9:30 PM CDT 15 mg lactated ringers infusion Started 06/15/2020 12:49 PM CDT 25 mL/hr, Intravenous, CONTINUOUS, Starting on Faye 06/15/20 at 0830, Administer on all preop surgery patients, ages 12 and older, unless specified differently in the Protocol for Preop Initiation of IV fluids Order Set., Pre-op Started 06/15/2020 9:00 AM CDT 25 mL/hr 25 mL/hr levothyroxine (SYNTHROID) tablet 200 mcg Given 06/17/2020 7:54 AM CDT 200 mcg 200 mcg, Oral, DAILY, First dose (after last modification) on Fri06/16/20 at 0800, Until Discontinued Given 06/16/2020 7:33 AM CDT 200 mcg lidocaine PF (XYLOCAINE) 1 % Given 06/15/2020 8:30 AM CDT 0.3 mL Right Hand injection 0.1-0.3 mL 0.1-0.3 mL, Subcutaneous, ONCE, On Faye 06/15/20 at 0830, For 1 dose, Lidocaine to be used for IV starts unless patient refuses., Pre-op magnesium hydroxide (MILK OF MAGNESIA) Given 06/17/2020 7:54 AM CDT 30 mL suspension 30 mL 30 mL, Oral, DAILY, First dose on Fri06/16/20 at 0800, Until Discontinued, Hold for loose stools., Post-op Given 06/16/2020 7:33 AM CDT 30 mL melatonin tablet 3 mg Given 06/17/2020 12:19 AM CDT 3 mg 3 mg, Oral, HS PRN, Sedation, sleep, Starting on Faye 06/15/20 at 1407, Until 06/17/20 at 1440, Post-op ondansetron (ZOFRAN) injection 4 mg Given 06/15/2020 8:30 AM CDT 4 mg 4 mg, Intravenous, ONCE, On Faye 06/15/20 at 0830, For 1 dose, Give in Preop., Pre-op ondansetron (ZOFRAN) injection 4 mg 4 mg, Intravenous, Q6H PRN, Nausea, Vomiting, Starting on Faye 06/15/20 at 1407, Until 06/17/20 at 1440, Give IV if unable to take o ral., Post-op ondansetron (ZOFRAN-ODT) disintegrating tablet 4 mg 4 mg, Oral, Q6H PRN, Nausea, Vomiting, S tarting on Faye 06/15/20 at 1407, Until 06/17/20 at 1440, Do not swallow tablet whole. Allow to dissolve on the tongue without chewing., Post-op oxyCODONE (OXYCONTIN) controlled release Given 06/15/2020 8:30 A M CDT 10 mg tablet 10 mg 10 mg, Oral, ONCE, On Faye 06/15/20 at 0830, For 1 dose, Give in Preop., Pre-op oxyCODONE (ROXICODONE) immediate release Given 06/17/2020 10:25 AM CDT 10 mg tablet 5-10 mg 5-10 mg, Oral, Q2H PRN, Other, Moderate Pain (pain score 5-7), Severe Pain (pain score 8-10), Starting on Faye 06/15/20 at 1407, Until 06/17/20 at 1440, Do NOT administer at the same time as IV opioids. May administer 1 hour after IV opioid administration. HOLD if on SKIDWAY MAN. Use of ORAL opioids is encouraged as patients anticipate discharge. (IV medications will be discontinued 48 hours post-op.) May give for anticipatory pain (ie prior to therapies, procedures) regardless of current pain score, Post-op Given 06/17/2020 7:53 AM CDT 5 mg Given 06/17/2020 5:23 AM CDT 10 mg pantoprazole (PROTONIX) tablet 40 mg Given 06/17/2020 5:23 AM CDT 40 mg 40 mg, Oral, DAILY AT 0600, First dose on Faye 06/15/20 at 1800, Last dose on 06/17/20 at 0600, For 48 hours, Tablet should be swallowed whole. Best when taken before a meal, but may be taken with food., Post-op Given 06/15/2020 5:45 PM CDT 40 mg rOPINIRole (REQUIP) tablet 1 mg Given 06/16/2020 4:06 PM CDT 1 mg 1 mg, Oral, HS, First dose on Faye 06/15/20 at 2200, Until Discontinued Given 06/15/2020 8:30 PM CDT 1 mg sacubitril-valsartan (ENTRESTO) 97-103 MG Given 06/16/2020 7 :33 AM CDT 1 Tablet per tablet 1 Tablet 1 Tablet, Oral, BID, First dose on Faye 06/15/20 at 2000, Until Discontinued, Hold for SBP <130. Given 06/15/2020 8:28 PM CDT 1 Tablet senna (SENOKOT) tablet 1 Tablet Given 06/16/2020 7:41 PM CDT 1 Tablet 1 Tablet, Oral, DAILY - 1999, First dose on Faye 06/15/20 at 2000, Until Discontinued, Give every day while on opioids (stimulant) starting day of surgery. Hold for loose stools., Post-op Given 06/15/2020 8:28 PM CDT 1 Tablet sodium chloride 0.9% infusion New Bag Started 06/16/2020 2:27 AM CDT 75 mL/hr Intravenous, at 75 mL/hr, CONTINUOUS, Starting on Faye 06/15/20 at 1430, Start after completion of bag currently infusing, Post-op Started 06/15/2020 5:00 PM CDT 75 mL/hr sodium chloride 0.9% injection 10-60 mL Given 06/17/2020 7:58 AM CDT 10 mL 10-60 mL, Intravenous, BID, First dose on Faye 06/15/20 at 1999, Until Discontinued, For an INT flush, flush with at least 10 mL. For PICC (including Power Injectable PICC), flush with 10 mL. For Port-a-Cath, flush with a minimum of 10 mL. For Brock, flush with a minimum of 10 mL. For jugular, subclavian, femoral central lines, flush with a minimum of 10 mL. For additional information about flushing processes, reference the Vascular Access Device Users Guide. Given 06/16/2020 7:47 PM CDT 10 mL Given 06/16/2020 7:38 AM CDT 10 mL sodium chloride 0.9% injection 10-60 mL Given 06/17/2020 10:16 AM CDT 10 mL 10-60 mL, Intravenous, PRN, Line Patency, Other, Line Care, Starting on Faye 06/15/20 at 1407, Until 06/17/20 at 1440, For an INT flush, flush with at least 10 mL. For PICC (including Power Injectable PICC), flush with 10 mL. For Port-a-Cath, flush with a minimum of 10 mL. For Brock, flush with a minimum of 10 mL. For jugular, subclavian, femoral central lines, flush with a minimum of 10 mL. For additional information about flushing processes, reference the Vascular Access Device Users Guide. Given 06/16/2020 2:20 AM CDT 10 mL sotalol (BETAPACE) tablet 120 mg Given 06/17/2020 7:54 AM CDT 120 mg 120 mg, Oral, BID, First dose on Faye 06/15/20 at 2000, Until Discontinued, OP SIG:TK 1 T PO Q 12 H Given 06/16/2020 7:41 PM CDT 120 mg Given 06/16/2020 7:37 AM CDT 120 mg spironolactone (ALDACTONE) tablet 12.5 m g Given 06/16/2020 7:33 AM CDT 12.5 mg 12.5 mg, Oral, DAILY, First dose on Fri06/16/20 at 0800, Until Discontinued, Hold for SBP <130. HAZARDOUS DRUG Preparation: Single glove Administration: If no touch, no PPE; if handling, single glove , Indications: Hypertension documented in this encounter Active and Recently Administered Medications Times are shown in CDT. Scheduled Medication Order 06/15/2020 06/16/2020 06/17/2020 0.9% sodium chloride bolus 500 mL (COMPLETED) 1112 (Started - Provider: David Alvarez RN)1212 (Infused - Provider: David Alvarez RN) 500 mL, Intravenous, Administer over 1 H ours, ONCE, Fri06/16/20 at 1115, For 1 dose acetaminophen (TYLENOL) tablet 1,000 mg (COMPLETED) 09 03 (Given - Provider: Lisa Chavez RN) 1,000 mg, Oral, ONCE, Fri06/15/20 at 0830, For 1 dose, Give in P reop., Pre-op acetaminophen (TYLENOL) tablet 650 mg 1500 (Given - Pr ovider: Lianna Cano RN)2027 (Given - Provider: nAca Chung RN) 0732 (Given - Provider: David Alvarez RN)1111 (Given - Provider: David Alvarez RN)1552 (Given - Provider: David Alvarez, KELSEA)1941 (Given - Provider: Jono Frye RN) 0752 (Given - Provider: David marie RN)1139 (Given - Provider: David Alvarez RN) 650 mg, Oral, QID, First dose on Faye 06/15/20 at 1600, Post-op ceFAZolin (aka ANCEF) 2 g in dextrose 100 ml IVPB (COM PLETED) 1824 (Started - Provider: Flori Pang RN)1854 (Infused - Provider: Flori Pang RN) 0227 (Started - Provider: Anca Chung, KELSEA)0257 (Infused - Provider: Anca Chung RN) 2 g, Intravenous, Administer over 30 Min utes, Q8H (NON-STND), First dose on Faye 06/15/20 at 1830, For 2 doses, Post-op ceFAZolin (ANCEF) 3 g in sodium chloride 0.9 % 100 mL IVPB (COMPLETED) 1050 (Started - Provider: Levi Renee, MARKET RESEARCH MANAGER, NURSE MIDWIFE/CLINICAL INSTRUCTOR) 3 g, Intravenous, Administer over 30 Min utes, ONCE, Faye 06/15/20 at 0830, For 1 dose, Infuse within 60 minutes prior to incision; Re-dose 2 gram IV every 4 hours after initial dose until incision closed., Pre-op enoxaparin (LOVENOX) injection 30 mg 073 8 (Given - Provider: David Alvarez RN)1943 (Given - Provider: Jono Frye RN) 0758 (Given - Provider: David Alvarez RN) 30 mg, Subcutaneous, BID, First dose on Fri06/16/20 at 0800, For first dose: If patient is back from surgery before 1400, give first dose in the evening day of surgery. If patient is back from surgery a fter 1400 start first dose in the morning POD #1., Post-op ketorolac (TORADOL) injection 15 mg (COMPLETED) 1535 ( Given - Provider: Flori Pang RN)2031 (Given - Provider: Anca Chung RN) 0417 (Given - Provider: Anca Chung, KELSEA)0944 (Given - Provider: David Alvarez RN)1552 (Given - Provider: David Alvarez RN)2130 (Given - Provider: Jono M Frye, RN) 0330 (Given - Provider: Jono Frye RN)1016 (Given - Provider: David Alvarez RN) 15 mg, Intravenous, Q6H (NON-STND), Firs t dose on Fri06/15/20 at 1530, For 48 hours, Do not give if CrCl <60 or history of GI bleed. Start at least 6 hours after celecoxib (CELEBREX) if given., Post-op levothyroxine (SYNTHROID) tablet 200 mcg 07 (Given - Provider: David Alvarez RN) 075 (Given - Provider: David marie, KELSEA) 200 mcg, Oral, DAILY, First dose (after last modification) on Fri06/16/20 at 0800 lidocaine PF (XYLOCAINE) 1 % injection 0.1-0.3 mL (COM PLETED) 829 (Given - Provider: Lisa Chavez, KELSEA) 0.1-0.3 mL, Subcutaneous, ONCE, Faye 06/15 at 0830, For 1 dose, Lidocaine to be used for IV starts unless patient refuses., Pre-op magnesium hydroxide (MILK OF MAGNESIA) suspension 30 mL 732 (Given - Provider: David Alvarez RN) 075 (Given - Provider: David marie, KELSEA) 30 mL, Oral, DAILY, First dose on Fri at 0800, Hold for loose stools., Post-op ondansetron (ZOFRAN) injection 4 mg (COMPLETED) 829 ( Given - Provider: Lisa Chavez, KELSEA) 4 mg, Intravenous, ONCE, Faye 06/15/20 at 0830, For 1 dose, Give in Preop., Pre-op oxyCODONE (OXYCONTIN) controlled release tablet 10 mg (COMPLETED) 829 (Given - Provider: Lisa Chavez, KELSEA) 10 mg, Oral, ONCE, Faye 06/15/20 at 0830, For 1 dose, Give in Preo p., Pre-op pantoprazole (PROTONIX) tablet 40 mg (COMPLETED) 1744 (Given - Provider: Flori Pang RN) 05 (Given - Provider: Bandar Frye RN) 40 mg, Oral, DAILY AT 0600, First dose o n Faye 06/15/20 at 1800, For 48 hours, Tablet should be swallowed whole. Best when taken before a meal, but may be taken with food., Post-op rOPINIRole (REQUIP) tablet 1 mg 2029 (Given - Provider : Anca Chung RN)2199 (Not Given - Provider: Anca Chung RN - Reason: Other (Enter Reason in Comment Area) - Comment: given early per pt request) 160 (Given - Provider: David Alvarez RN) 1 mg, Oral, HS, First dose on Faye 06/15/20 at 2200 sacubitril-valsartan (ENTRESTO) 97-103 MG per tablet 1 Tablet 2027 (Given - Provider: Anca Chung RN) 07 (Given - Provider: David marie RN)1999 (Not Given - Provider: Jono Frye RN - Reason: Order parameters not met - Comment: Bp 85/50) 0800 (Not Given - Provider: David Beal RN - Reason: Order parameters not met - Comment: Blood pressure 102/56) 1 Tablet, Oral, BID, First dose on Faye 06/15/20 at 1999, Hold for SBP <130. senna (SENOKOT) tablet 1 Tablet 2027 (Given - Provider: Chuck Loomis RN) 1940 (Given - Provider: Jono Frye, KELSEA) 1 Tablet, Oral, DAILY - 1999, First dose on Faye 06/15/20 at 1999, Give every day while on opioids (stimulant) starting day of surgery. Hold for loose stools., Post-op sodium chloride 0.9% injection 10-60 mL 1999 (Not Give n - Provider: Anca Chung RN - Reason: Other (Enter Reason in Comment Area) - Comment: IVF running) 07 (Given - Provider: David marie RN)1946 (Given - Provider: Jono Frye RN) 075 (Given - Provider: David marie, RN) 10-60 mL, Intravenous, BID, First dose o n Faye 06/15/20 at 1999, For an INT flush, flush with at least 10 mL. For PICC (including Power Injectable PICC), flush with 10 mL. For Port-a-Cath, flush with a mi nimum of 10 mL. For Brock, flush with a minimum of 10 mL. For jugular, subclavian, femoral central lines, flush with a minimum of 10 mL. For additional information about flushing processes, reference the Vascular Access Device Users Guide. sotalol (BETAPACE) tablet 120 mg 2027 (Given - Provider: Benji Chung RN) 0737 (Given - Provider: David Alvarez RN)194 (Given - Provider: Jono Frye, KELSEA) 0754 (Given - Provider: David marie RN) 120 mg, Oral, BID, First dose on Faye 06/15/20 at 2000, OP SIG:TK 1 T PO Q 12 H spironolactone (ALDACTONE) tablet 12.5 mg 0733 (Given - Provider: David Alvarez RN) 0755 (Not Given - Provider: David Beal RN - Reason: Order parameters not met - Comment: Blood pressure 102/56) 12.5 mg, Oral, DAILY, First dose on Fri06/16/20 at 0800, Hold for SBP <130. HAZARDOUS DRUG Preparation: Single glove Administration: If no touch, no PPE; if handling, single glove , Indications: Hypertension tranexamic acid (CYKLOKAPRON) 1,000 mg i n sodium chloride 0.9 % 50 mL IVPB (COMPLETED) 1054 (Started - Provider: Levi Awan ala, APRN, CRNA)1242 (Bolus - Provider: Levi Renee APRN, CRNA) 1,000 mg, Intravenous, ONCE, Faye 06/15/20 at 0830, For 1 dose, Maximum administration rate is 100 mg/minute. To be given in OR by NURSE MIDWIFE/CLINICAL INSTRUCTOR prior to incision. Re-dose 1000 mg IV during wound closure., Pre-op Continuous Medication Order 06/15/2020 06/16/2020 06/17/2020 lactated ringers infusion (CANCELED) 0900 (Started - P rovider: Lias Chavez RN)1249 (Started - Provider: Levi Renee APRN, CRNA) 25 mL/hr, Intravenous, at 25 mL/hr, CONT INUOUS, Starting Faye 06/15/20 at 0830, Administer on all preop surgery patients, ages 12 and older, unless specified differently in the Protocol for Preop Initiation of IV fluids Order Set., Pre-op sodium chloride 0.9% infusion (CANCELED) 1700 (Started - Provider: Flori Pang, KELSEA) 0227 (New Bag Started - Provider: Anca Chung RN)1534 (Stopped - Provider: David Alvarez RN) Intravenous, at 75 mL/hr, CONTINUOUS, St arting Faye 06/15/20 at 1430, Start after completion of bag currently infusing, Post-op PRN Medication Order 06/15/2020 06/16/2020 06/17/2020 bisacodyl (DULCOLAX) rectal suppository 10 mg 10 mg, Rectal, DAILY PRN, Other, Moderat e Constipation, Starting Faye 06/15/20 at 1407, Post-op rjozrqweyyw-rtktmjkpumk-woinolbhh 0.25%- [id number] 40 mL in 0.9% sodium chloride 60 mL (surgery only) (CANCELED) 1113 (Given - Provider: Sanjay Murrieta MD) ONCE PRN, Starting Faye 06/15/20 at 1113, Intra-op hydrocortisone 1 % cream Topical, TID PRN, Rash, Itching, Startin g Faye 06/15/20 at 1433, Apply topically to affected areas Hazardous waste disposal required. HYDROmorphone (DILAUDID) injection 0.2-0.4 mg 1606 (Gi perry - Provider: Flori Pang RN) 0.2-0.4 mg, Intravenous, Q1H PRN, Other, Severe Pain (pain score 8-10) if patient is unable to take ORAL or for pain score increasing by 3 in 30 minutes., Starting Faye 06/15/20 at 1407, For 48 hours, May administer 1 hour after ORAL opioid adm inistration if given for pain score escalation. Do NOT administer at the same time as ORAL opioids. HOLD if on SKIDWAY MAN., Post-op lidocaine (UROJET) 2 % prefilled syringe Urethral, PRN, Local Anesthetic, Urethra l Discomfort, Starting Faye 06/15/20 at 1407, Consider using for any adult male or any patients with a history of painful urinary catheter insertion and no lidocaine allergy., Post-op LORazepam (ATIVAN) tablet 2 mg 2 mg, Oral, HS PRN, Anxiety, Sedation, S tarting Faye 06/15/20 at 1520, OP SIG:Take 1 mg by mouth as needed for Anxiety. melatonin tablet 3 mg 0019 (Give n - Provider: Jono Frye RN) 3 mg, Oral, HS PRN, Sedation, sleep, Starting Faye 06/15/20 at 140 7, Post-op naloxone (NARCAN) injection 0.08 mg 0.08 mg, Intravenous, PRN, Other, Opioid Reversal, Starting Faye 06/15/20 at 1407, Dilute 0.4mg/1mL with 9mL NS, then 0.08mg = 2mL. Give 0.08mg/2mL every 3 minutes as needed. Maximum total dose = 2mg., Post-op naloxone (NARCAN) injection 0.4 mg 0.4 mg, Intravenous, ONCE PRN, Opioid Re versal, For imminent respiratory arrest, Starting Faye 06/15/20 at 1407, For 1 dose, Notify MD if Narcan is given., Post-op ondansetron (ZOFRAN) injection 4 mg(Linked Group 1) 4 mg, Intravenous, Q6H PRN, Nausea, Vomi ting, Starting Faye 06/15/20 at 1407, Give IV if unable to take oral., Post-op ondansetron (ZOFRAN-ODT) disintegrating tablet 4 mg(Linked Group 1) 4 mg, Oral, Q6H PRN, Nausea, Vomiting, S tarting Faye 06/15/20 at 1407, Do not swallow tablet whole. Allow to dissolve on the tongue without chewing., Post-op oxyCODONE (ROXICODONE) immediate release tablet 5-10 m g 1501 (Given - Provider: Lianna Cano RN)1745 (Given - Provider: Flori Pang RN)2027 (Given - Provider: Anca Chung RN) 0527 (Given - Provider: Anca Chung RN)0734 (Given - Provider: David Alvarez RN - Comment: Anticipatory pain with therapy) 0019 (Given - Provider: Jono Frye, RN)0523 (Given - Provider: Jono Frye RN)0753 (Given - Provider: David Alvarez RN)1025 (Given - Provider: David Alvarez RN) 5-10 mg, Oral, Q2H PRN, Other, Moderate Pain (pain score 5-7), Severe Pain (pain score 8-10), Starting Faye 06/15/20 at 1407, Do NOT administer at the same time as IV opioids. May administer 1 hour after IV opioid administration. HOLD if on SKIDWAY MAN . Use of ORAL opioids is encouraged as patients anticipate discharge. (IV medications will be discontinued 48 hours post-op.) May give for anticipatory pain (ie p rior to therapies, procedures) regardless of current pain score, Post-op povidone-iodine 10% in sodium chloride 5 00 mL sterile irrigation (surgery only) (CANCELED) 1112 (Given - Provider: Sanjay Murrieta MD) ONCE PRN, Starting Faye 06/15/20 at 1112, Intra-op sodium chloride 0.9% injection 10-60 mL 0220 (Given - Provider: Cheyenne Chavez RN) 1016 (Given - Provider: David marie RN) 10-60 mL, Intravenous, PRN, Line Patency , Other, Line Care, Starting Faye 06/15/20 at 1407, For an INT flush, flush with at least 10 mL. For PICC (including Power Injectable PICC), flush with 10 mL. For P ort-a-Cath, flush with a minimum of 10 m L. For Brock, flush with a minimum of 10 mL. For jugular, subclavian, femoral central lines, flush with a minimum of 10 mL. For additional information about flu shing processes, reference the Vascular Access Device Users Guid e. sodium chloride for irrigation 0.9 % (CANCELED) 111 ( Given - Provider: Sanjay Murrieta MD) ONCE PRN, Starting Faye 06/15/20 at 1112, Intra-op sodium phosphate (FLEET) enema 1 Enema 1 Enema, Rectal, PRN, Other, Severe Cons tipation, Starting Faye 06/15/20 at 1407, Post-op traZODone (DESYREL) tablet 12.5-25 mg 12.5-25 mg, Oral, HS PRN, Sleep, if violet tonin is ineffective., Starting Faye 06/15/20 at 1407, Post-op vancomycin (VANCOCIN) powder for intra-op use (CANCELE D) 1112 (Given - Provider: Sanjay Murrieta MD) ONCE PRN, Starting Faye 06/15/20 at 1112, Intra-op Linked Groups Order Group 1: ondansetron (ZOFRAN) injection 4 mgJump to med 4 mg, Intravenous, Q6H PRN, Nausea, Vomi ting, Starting Faye 06/15/20 at 1407
Give IV if unable to take oral.
Post-op Or ondansetron (ZOFRAN-ODT) disintegrating tablet 4 mgJump to med 4 mg, Oral, Q6H PRN, Nausea, Vomiting, S tarting Faye 06/15/20 at 1407
Do not swallow tablet whole. Allow to dissolve on the tongue without chewing.
Post-op documented in this encounter Care Teams Buffing And Polishing Wheel Repairer Relationship Specialty Start Date End Date Needs Pcp, Assignment PCP - General 06/15/20 06/22/20 [place] [address] documented as of this encounter
--- OUTSIDE RECORDS SUMMARY | 2022-05-14 09:04 | XMS_ITS | Encounter Summary ---
:1950 Author Organization [facility] Address [address] [address] Care Team Providers Name Role Phone Needs Pcp, Assignment Primary Care Provider Reason for Visit Reason Comments QUESTIONS, GENERAL Encounter Details Date Type Department Care Team Description 06/21/2020 Telephone [facility] Sanjay Murrieta MD QUESTIONS, GENERAL [address] [facility] [address] [place] [address] [address] [place] [address] [place] [address] [phone] (Wo rk) Social History Tobacco Use Types [...] documented as of this encounter Nursing Notes Magaly Connolly RN - 2020 10:52 AM CDT Pt is s/p right TKA on 06/15/[address] Murrieta. Pt states that he is already in contact with Seema Cheney. No further needs at this time. Lilia Leal - 06/21/2020 2:30 PM CDT Has the patient recently had surgery or an injury? Yes. Date of Surgery: June 15, 2020 Type of Surgery: total right knee replacement How may we help you today? Patient would like to speak to a member of the care team Describe your symptoms/concerns: Patient has some questions regarding his surgery. Please call patient and advise. When did the issue start: today Have you been seen for this recently?: no [Cardiac Nurse/Appt Center: If yes, please include date and provider.] Is it okay to leave detailed message on your voicemail? yes [Cardiac Nurse/Appt Center: If this call is after 3 p.m., communicate to patient: If we are not able to get back to you by the end of the day and your symptoms worsen please contact the Careline] documented in this encounter Plan of Treatment Upcoming Encounters Date Type Specialty Care Team Description 05/29/2022 Appointment Orthopedics Kathi Fry PA-C [address] [place] [address] (Wo rk) documented as of this encounter Visit Diagnoses Not on filedocumented in this encounter Care Teams Jewel Bearing Broacher Relationship Specialty Start Date End Date Needs Pcp, Assignment PCP - General 06/15/20 06/22/20 [place] [address] documented as of this encounter
--- OUTSIDE RECORDS SUMMARY | 2022-05-14 09:04 | XMS_ITS | Encounter Summary ---
:1950 Author Organization [facility] Address [address], [place] [address] Care Team Providers Name Role Phone Non Pn, Clinician MD Primary Care Provider Unavailable Reason for Visit Reason Comments QUESTIONS, GENERAL New RX for pain Encounter Details Date Type Department Care Team Description 06/27/2020 Telephone [facility] Sanjay Jenkins MD QUESTIONS, GENERAL CENTER [address] [facility] (New RX for pain) [address] [place], [place] [phone] (Wo rk) Social History Tobacco Use Types [...] documented as of this encounter Nursing Notes Seema Cheney OA - 06/27/2020 3:04 PM CDT RX for Dilaudid 4mg #30 routed to for approval for pain. Mauro Rivera, RN - 06/27/2020 12:02 PM CDT Pt was seen today and requesting a phone call from Seema, Routing to Seema Thank you Alan Austin - 06/27/2020 11:31 AM CDT Has the patient recently had surgery or an injury? Yes. Date of Surgery: June 15, 2020 Type of Surgery: Right TKA How may we help you today? Patient would like a call back from Seema regarding future appointments Describe your symptoms/concerns: N/A When did the issue start: N/A Have you been seen for this recently?: Yes 06/27/20 [Account Officer/Appt Center: If yes, please include date and provider.] Is it okay to leave detailed message on your voicemail? Yes [Account Officer/Appt Center: If this call is after 3 p.m., communicate to patient: If we are not able to get back to you by the end of the day and your symptoms worsen please contact the Careline] documented in this encounter Plan of Treatment Upcoming Encounters Date Type Specialty Care Team Description 05/29/2022 Appointment Orthopedics Kathi Fry PA-C [address] [place], [place] [address] (Wo rk) documented as of this encounter Visit Diagnoses Not on filedocumented in this encounter Care Teams Sql Server Developer Relationship Specialty Start Date End Date Non Pn, Clinician, PCP - General 06/23/20 [place] [address] documented as of this encounter
--- OUTSIDE RECORDS SUMMARY | 2022-05-14 09:04 | XMS_ITS | Encounter Summary ---
:1950 Author Organization [facility] Address [address], [place] [address] Care Team Providers Name Role Phone Non Pn, Clinician MD Primary Care Provider Unavailable Reason for Visit Reason Comments QUESTIONS, GENERAL Encounter Details Date Type Department Care Team Description 12/26/2021 Telephone [facility] Kathi Chen, QUESTIONS, GENERAL [address] [facility] PA-C [place] [id number] [phone] [facility] [phone] [place] [address] (Wo rk) Social History Tobacco Use Types [...] encounter Nursing Notes Mauro Rivera, RN - 12/28/2021 10:25 AM CDT Pt was called back and notified that Kathi would like to see him back in clinic. Pt is in agreement with plan. He is currently in [place] but will make an appt to seen at [facility]. Kathi Fry PA-C - 12/28/2021 7:27 AM CDT Agree. Appt would be good so I can re-examine him. Stephy Campos RN - 12/26/2021 4:22 PM CDT Spoke to patient, he states he is having some new low back pain that is different to when he was last seen. Pain is into his tailbone region and has been intermittent with positional changes (although today has been constant). Pain does not go into his legs or radiate to other areas He is currently in [place], and will be returning to [place] next week. Saw [place] provider recently regarding his pain, was prescribed Gabapentin 100mg TID - increasing every 3 days (he has not started this medication). Also given order for PT. Patient requesting provider be updated with this information, and thoughts regarding [place] provider recommendations. Patient was highly encouraged to make visit with provider upon his return to [place] as pain is differentand he has not been seen since 12/30/2018. Clara Ge - 12/26/2021 1:44 PM CDT Has the patient recently had surgery or an injury? No Patient is requesting a call back from Kathi Fry. Patient has questions regarding a procedure he had a while ago that she had recommended. Patient declined to elaborate as he said it is complicated and detailed. documented in this encounter Plan of Treatment Upcoming Encounters Date Type Specialty Care Team Description 05/29/2022 Appointment Orthopedics Kathi Fry PA-C [address] [place] [address] (Wo rk) documented as of this encounter Visit Diagnoses Not on filedocumented in this encounter Care Teams Personal Banking Assistant Relationship Specialty Start Date End Date Non Pn, Clinician, PCP - General 06/23/20 [place] [address] documented as of this encounter
--- OUTSIDE RECORDS SUMMARY | 2022-05-14 09:05 | XMS_ITS | Encounter Summary ---
:1950 Author Organization [facility] Address [address] [address] Care Team Providers Name Role Phone Pcp, Pt Declines Primary Care Provider Reason for Visit Procedure/Equipment (Routine) - Incomplete Specialty Diagnoses / Procedures Referred By Contact Refer red To Contact Diagnoses Pain, joint, ankle and foot, right Riley Wilkes MD Procedures XR Foot Rt 3+ Views [address] [address] Referral ID Status Reason Start Date Expiration Date Visits V isits Requested Authorized [id number] Incomplete 05/15/2020 08/14/2021 1 1 Encounter Details Date Type Department Care Team Description 05/15/2020 Ancillary [facility] Riley Wilkes, Pain, joint, ankle and foot, left; Procedure [address] [place] Pain, joint, ankle and foot, right Drive [address] [facility] [address] [place], [place] [address] [phone] Social History Tobacco Use Types Packs/Day Years [...] 05/29/2022 Appointment Orthopedics Kathi Fry PA-C [address] [place] [address] (Wo rk) documented as of this encounter Procedures Procedure Name Priority Date/Time Associated Diagnosis Comme nts XR FOOT RT 3+ VIEWS Routine 05/15/2020 1:07 PM Pain, joint, an kle Results for this CDT and foot, right procedure ar e in the results section. XR FOOT LT 3+ VIEWS Routine 05/15/2020 1:07 PM Pain, joint, an kle Results for this CDT and foot, left procedure are in the results section. documented in this encounter Results XR Foot Rt 3+ Views (05/15/2020 1:07 PM CDT) Anatomical Region Laterality Modality Lower Extremity, Foot Digital Radiograph y Specimen (Source) Anatomical Location Collection Method / Collectio n Time Received Time / Laterality Volume Narrative 05/24/2020 11:11 AM CDT Three views of the right foot show hardware across the subtalar joint with a broken screw and some backing out of t he screw head. ??There is also hardware plate and screw fixation across the talonavicular joint, which again shows a broken screw within the ta lonavicular joint. ??It appears he has some collapse of the arch of his adonis t. ??No acute fractures or dislocations noted. ??Difficult to deter mine if he has a union across his talonavicular or subtalar joints. ?? Three views of the left foot show joint space narrowing of the 1st, 2nd and 3rd tarsometatarsal joints. ??He has significant bone spurring medially and dorsally off the 1st TMT joint. ??Pe s planus noted. ??No acute fractures or dislocations noted. ?? Riley Wilkes MD RAD GD XR Foot Lt 3+ Views (05/15/2020 1:07 PM CDT) Anatomical Region Laterality Modality Lower Extremity, Foot Digital Radiograph y Specimen (Source) Anatomical Location Collection Method / Collectio n Time Received Time / Laterality Volume Narrative 05/24/2020 11:11 AM CDT Three views of the right foot show hardware across the subtalar joint with a broken screw and some backing out of t he screw head. ??There is also hardware plate and screw fixation across the talonavicular joint, which again shows a broken screw within the ta lonavicular joint. ??It appears he has some collapse of the arch of his adonis t. ??No acute fractures or dislocations noted. ??Difficult to deter mine if he has a union across his talonavicular or subtalar joints. ?? Three views of the left foot show joint space narrowing of the 1st, 2nd and 3rd tarsometatarsal joints. ??He has significant bone spurring medially and dorsally off the 1st TMT joint. ??Pe s planus noted. ??No acute fractures or dislocations noted. ?? Riley Wilkes MD RAD GD documented in this encounter Visit Diagnoses Diagnosis Pain, joint, ankle and foot, left Pain, joint, ankle and foot, right documented in this encounter Care Teams Stave Grader Relationship Specialty Start Date End Date PcpSkinny MD PCP - General 07/14/18 06/14/20 [place] [address] documented as of this encounter
--- OUTSIDE RECORDS SUMMARY | 2022-05-14 09:05 | XMS_ITS | Encounter Summary ---
:1950 Author Organization [facility] Address [address], [place] [address] Care Team Providers Name Role Phone Pcp, Pt Declines MD Primary Care Provider Reason for Visit Procedure/Equipment (Routine) - Incomplete Specialty Diagnoses / Procedures Referred By Contact Refer red To Contact Diagnoses Pain, joint, ankle and foot, right Riley Wilkes MD Procedures CT Ankle Rt WO IV Cont [address] [facility] [place], [place] [address] Referral ID Status Reason Start Date Expiration Date Visits V isits Requested Authorized [id number] Incomplete 05/15/2020 08/14/2021 1 1 Encounter Details Date Type Department Care Team Description 05/24/2020 [facility] [place] Riley Mejia, Pain, kya nt, ankle Procedure [place] [id number] [address] MD and foot, right Scan [address] [facility] [address] [place], [place] [address] [address] [place], [place] [phone] (Work) [phone] Social History Tobacco Use Types Packs/Day Years [...] 05/29/2022 Appointment Orthopedics Kathi Fry PA-C [address] [place] [address] (Wo rk) documented as of this encounter Procedures Procedure Name Priority Date/Time Associated Diagnosis Comme nts CT ANKLE RT WO IV Routine 05/24/2020 8:20 AM Pain, joint, ankl e Results for this CONT CDT and foot, right procedure ar e in the results section. documented in this encounter Results CT Ankle Rt WO IV Cont (05/24/2020 8:20 AM CDT) Anatomical Region Laterality Modality Lower Extremity, Ankle, Foot, Leg, Foot & Ankle Computed Tomography Specimen (Source) Anatomical Collection Method Collection Time Re ceived Time Location / / Volume Laterality 05/24/2020 8:12 AM CDT Impressions 05/24/2020 9:00 AM CDT TECHNIQUE: ??Thin section axial scans were obtained through the right ankle. Sagittal and coronal reconstruction was performed without contrast. COMPARISON: None. FINDINGS: ??There are postoperative allen ges of talonavicular and subtalar arthrodesis. The larger caliber talonavicular fixation screw is fractured and angulated in its course. The posterior most small- caliber fixation screw of the talonavicu lar joint is also fractured on series 2, image 94. Subtalar fixation screw is fractured and is proud at the posterior calcaneal cortex by approximately 1 cm. The thin lucent talonavicular joint line remains evident without significant osseous incorporation at the talonavicular fusion. The subtalar joint space also remains evident without solid bony bridging demonstrated. The middle subtalar joint is markedly irregular and may have small areas of partial incorporation although the joint line remains largely evident. Mild to moderate osteoarthritis noted at the TMT and naviculocuneiform joints. Moderate osteoarthritis at the tibiotalar joint. Chondrocalcinosis of the tibiotalar joint. Small chronic appearing avulsio n fragment distal to the medial malleolu s. Tiny calcific densities along the course of the posterior tibial and peroneal tendons may represent joint bodies within the tendon sheath. Small joint bodies a re present posterior the tibiotalar join t as well. IMPRESSION: ?? 1. No significant bony bridging at the t alonavicular or subtalar joint arthrodesis sites. 2. There is fracturing of 2 of the avi avicular fixation screws. The subtalar fixation screw is fractured and proud by approximately 1 cm. Procedure Note Nirmal Bailey MD - 05/24/2020 IMPRESSION TECHNIQUE: Thin section axial scans were obtained through the right ankle. Sagittal and coronal reconstruction was performed without contrast. COMPARISON: None. FINDINGS: There are postoperative change s of talonavicular and subtalar arthrodesis. The larger caliber talonavicular fixation screw is fractured and angulated in its course. The posterior most small-caliber fixation screw of the talonavicular joint is also fractured on series 2, image 94. Subtalar fixation screw is fractured and is proud at the posterior calcaneal cortex by approximately 1 cm. The thin lucent talonavicular joint line remains evident without significant osseous incorporation at the talonavicular fusion. The subtalar joint space also remains evident without solid bony bridging demonstrated. The middle subtalar joint is markedly irregular and may have small areas of partial incorporation although the joint line remains largely evident. Mild to moderate osteoarthritis noted at the TMT and naviculocuneiform joints. Moderate osteoarthritis at the tibiotalar joint. Chondrocalcinosis of the tibiotalar joint. Small chronic appearing avulsion fragment distal to the medial malleolus. Tiny calcific d ensities along the course of the posterior tibial and peroneal tendons may represent joint bodies within the tendon sheath. Small joint bodies are present posterior the tibiotalar joint as well. IMPRESSION: 1. No significant bony bridging at the t alonavicular or subtalar joint arthrodesis sites. 2. There is fracturing of 2 of the avi avicular fixation screws. The subtalar fixation screw is fractured and proud by approximately 1 cm. Riley Wilkes MD RAD CT documented in this encounter Visit Diagnoses Diagnosis Pain, joint, ankle and foot, right documented in this encounter Care Teams Veneer Puller Relationship Specialty Start Date End Date Pcp, Skinny Rosario MD PCP - General 07/14/18 06/14/20 [place] [address] documented as of this encounter
--- OUTSIDE RECORDS SUMMARY | 2022-05-14 09:05 | XMS_ITS | Encounter Summary ---
:1950 Author Organization [facility] Address [address] [place] [address] Care Team Providers Name Role Phone Pcp, Pt Abraham RINCON Primary Care Provider Reason for Visit Reason Comments Knee Problem right Encounter Details Date Type Department Care Team Description 05/15/2020 Office Visit [facility] Sanjay Murrieta MD Primary osteoarthritis CENTER [address] [place] [address] of both knees (Primary [address] [place] [address] Dx) [place] [address] [phone] Social History Tobacco Use Types Packs/Day Years [...] Sign Reading Time Taken Comments Blood Pressure - - Pulse - - Temperature - - Respiratory Rate - - Oxygen Saturation - - Inhaled Oxygen Concentration - - Weight 137.4 kg (303 lb) 05/15/2020 1:43 PM CDT Height 200.7 cm (6' 7) 05/15/2020 1:43 PM CDT Body Mass Index 34.13 05/15/2020 1:43 PM CDT documented in this encounter Patient Instructions Patient InstructionsWhSeema ruiz OA - 05/15/2020 1:[address] Sanjay Murrieta MD Orthopaedic Surgeon Medication Requests: Prescriptions are not filled on weekends or on weekdays after 3:00 PM To have right total knee arthroplasty, Bisi will call you to schedule a date documented in this encounter Progress Notes Sanjay Murrieta MD - 05/15/2020 1:40 PM CDT Merrick Petty [id number] 1950 [facility] Consultation 05/15/2020 Chief Complaint: Right Knee Pain History of Present Illness: Merrick Petty is a 69 y.o. male who presents for initial evaluation of right knee pain. He is here to discuss a possible injection versus surgery. The patient has long standing difficulties with the bilateral knees. The patient has known osteoarthritis in the right knee and was last seen by Dr. Dyllan Teresa on 12/01/19. At that time, he received bilateral knee cortisone injections. He subsequently then saw Dr. Cari Estevez on 03/15/20 and received repeat injections, which have not provided him with relief. He feelsas if the lubricants and cortisone injections are no longer providing him with relief. The patient reports that he cannot get out of a chair secondary to lateral knee pain. However, once he gets up andmoving, he is able to walk moderate distances. Stairs are also problematic for him. The pain is severe in the posterolateral aspect of the right knee. The left knee pain is moderate. He notes that he does not trust his knees as he fears they will buckle and give way. There is no dramatic pain at rest or when sitting. The intake sheet was reviewed with the patient. This was up-to-date including medications, past surgical history and social history, as well as risk factors, complete review of systems and family health history and scanned into the electronic medical record. Physical Exam: General: The patient is in no acute distress. Difficulties with moving to the exam table. Neuro: Answers questions appropriately. Alert and oriented x 3. Skin: Cool to touch without erythema, ecchymosis, or lesions. Bilateral Hips: Good range of motion without difficulties. Bilateral Knee: Obvious valgus alignment on the right when standing. Neutral alignment on the left. Moderate patellofemoral crepitus bilaterally. No dramatic effusion present bilaterally. Demonstrates relative 1+ lateral collateral laxity on the right. No medial or lateral collateral laxity on the left. Negative No's bilaterally. No posterior sag or posterior drawer bilaterally. CMS is intact distally. Imaging: Radiographs of the Bilateral Knees - 3 Views (12/01/19): Demonstrates advanced and severe lateral compartment DJD in the right with moderate to severe involvement on the left. Exhibits moderate patellofemoral involvement bilaterally. No acute changes noted. I independently reviewed and interpreted the imaging studies above; the results were discussed with the patient. Assessment: Diagnosis and Associated Orders ICD-10-CM 1. Primary osteoarthritis of both knees M17.0 Advanced lateral compartment DJD bilaterally with moderate patellofemoral involvement. Plan: At this point, he is not a candidate for a uni-compartmental knee, especially based on his knee, hissize, and the involvement of the patella. He would therefore be a candidate for a right total knee arthroplasty. The nature of that surgery, the risks, complications, benefits, and expected outcomes were reviewed and discussed at length. All of his questions were answered. He does have chronic atrial fibrillation. He has a defibrillator. He would need to be scheduled for that procedure at [facility]. The patient would like to undergo surgery as soon as possible, which would be the third week of May secondary to a recent corticosteroid injection. We will get him set up for that. He will need anappropriate pre-operative medical evaluation. Scribe Disclosure: Scribed for Sanjay Murrieta MD by Vianey Vega medical director. I, Sanjay Murrieta MD, have personally reviewed and agree with the information entered by the scribe. Sanjay Murrieta MD documented in this encounter Plan of Treatment Upcoming Encounters Date Type Specialty Care Team Description 05/29/2022 Appointment Orthopedics Kathi Fry PA-C [address] [place] [address] (Wo rk) documented as of this encounter Visit Diagnoses Diagnosis Primary osteoarthritis of both knees - P rimary Primary localized osteoarthrosis, lower leg documented in this encounter Care Teams Sandwich Counter Attendant Relationship Specialty Start Date End Date PcpSkinny MD PCP - General 07/14/18 06/14/20 [place] [address] documented as of this encounter
--- OUTSIDE RECORDS SUMMARY | 2022-05-14 09:05 | XMS_ITS | Encounter Summary ---
:1950 Author Organization [facility] Address [address] [place] [address] Care Team Providers Name Role Phone Pcp, Pt Declines Primary Care Provider Reason for Visit Reason Comments RESULTS, TEST CT scan Encounter Details Date Type Department Care Team Description 05/30/2020 Telephone TRIRiley Longoria MD RESULTS, TEST (CT CENTER [address] [facility] [address] scan) [address] [place], [place] [phone] (Wo rk) Social History Tobacco Use Types [...] documented as of this encounter Nursing Notes Nithya Berry RN - 05/30/2020 11:20 AM CDT reviewed the results of the CT scan. It shows No bridging of bone. He requests that the patient return to clinic to discuss the care planoptions. Patient was called and appointment was made. documented in this encounter Plan of Treatment Upcoming Encounters Date Type Specialty Care Team Description 05/29/2022 Appointment Orthopedics Kathi Fry PA-C [address] [place] [address] (Wo rk) documented as of this encounter Visit Diagnoses Not on filedocumented in this encounter Care Teams Decision Support Manager Relationship Specialty Start Date End Date Pcp, Skinny Rosario MD PCP - General 07/14/18 06/14/20 [place], [place] [phone] documented as of this encounter
--- OUTSIDE RECORDS SUMMARY | 2022-05-14 09:05 | XMS_ITS | Encounter Summary ---
:1950 Author Organization [facility] Address [address] [place] [address] Care Team Providers Name Role Phone Pcp, Pt Declines MD Primary Care Provider Reason for Referral Procedure/Equipment (Routine) - Incomplete Specialty Diagnoses / Procedures Referred By Contact Refer red To Contact Diagnoses Pain, joint, ankle and foot, right Riley Wilkes MD Procedures CT Ankle Rt WO IV Cont [address] [facility] [address] [place], [place] [address] Referral ID Status Reason Start Date Expiration Date Visits V isits Requested Authorized [id number] Incomplete 05/15/2020 08/14/2021 1 1 Procedure/Equipment (Routine) - Incomplete Specialty Diagnoses / Procedures Referred By Contact Refer red To Contact Diagnoses Pain, joint, ankle and foot, right Riley Wilkes MD Procedures XR Foot Rt 3+ Views [address] [facility] [address] [place] [address] Referral ID Status Reason Start Date Expiration Date Visits V isits Requested Authorized [id number] Incomplete 05/15/2020 08/14/2021 1 1 Procedure/Equipment (Routine) - Incomplete Specialty Diagnoses / Procedures Referred By Contact Refer red To Contact Diagnoses Pain, joint, ankle and foot, left Riley Wilkes MD Procedures XR Foot Lt 3+ Views [address] [place], [place] [address] Referral ID Status Reason Start Date Expiration Date Visits V isits Requested Authorized [id number] Incomplete 05/15/2020 08/14/2021 1 1 Reason for Visit Reason Comments Foot Pain bilateral foot Encounter Details Date Type Department Care Team Description 05/15/2020 Office Visit [facility] Riley Wilkes, Pain, joint, ankle and foot, right (Primary Dx); CENTER Pain, joint, ankle and foot, left [address] [facility] [address] [facility] [place] [address] [place] [phone] (Wo rk) Social History Tobacco Use Types [...] - Weight 137.4 kg (303 lb) 05/15/2020 12:40 PM CDT Height 200.7 cm (6' 7) 05/15/2020 12:40 PM CDT Body Mass Index 34.13 05/15/2020 12:40 PM CDT documented in this encounter Patient Instructions Patient InstructionsKhushboo Bocanegra - 05/15/2020 12:[address] Riley Wilkes MD Orthopaedic Surgeon/Foot & Ankle Specialist Software Development Test Engineer, [facility] Medication Requests: Prescriptions are not filled on weekends or on weekdays after 3:00 PM documented in this encounter Progress Notes Riley Wilkes MD - 05/15/2020 12:00 PM CDT NAME: MERRICK CENTENO MR#: [id number] CSN: [id number] AUTHENTICATING CLINICIAN: Riley Wilkes MD CONFIRM #: [id number] LOC: 711 CLINIC PROGRESS NOTE DATE OF VISIT: 05/15/2020 : 1950 CHIEF COMPLAINT: Bilateral pes planus. HISTORY OF PRESENT ILLNESS: Mr. Centeno is a 69-year-old male who is known to our clinic as he was last seen on 12/28/2012 for hisbilateral pes planus. At that time, the patient was having some pain and symptoms, but he decided toproceed with the custom orthotics. Since that visit, the patient has had a surgical consultation with Dr. Ton Birch and underwent a right subtalar and talonavicular joint fusion due to right pes planus. The patient reports that following that surgery, it was noted at his 6 month postop visit that he did have a broken screw and the possibility of nonunion of 1 of the joints. The patient decided tocontinue with conservative treatment for his right foot. He has noted ongoing pain since the time ofhis surgery. He does get some swelling and pain mostly located through the arch of his foot. His pain comes and goes and is not consistent. The patient also has known flatfoot on the left side and is also having some discomfort through his arch on the left side. His biggest concern today is his right knee pain, and he does have a consult appointment with 1 of the providers here following this appointment to discuss his right knee. If he had to place them in order of discomfort it would right knee followed by right ankle followed by left ankle. The patient does feel like he has enough symptoms in his right ankle to do a surgery if warranted. He denies any newsymptoms of numbness or tingling in his feet or ankles. He does have custom orthotics, but reports that they are probably 7 to 8 years old. CURRENT MEDICAL CONDITIONS: Hypertension. PREVIOUS SURGERIES, MEDICATIONS, AND ALLERGIES: Reviewed on the general medical history intake form and scanned in the media tab. SOCIAL HISTORY: The patient is retired. He lives with his spouse. He denies any history of substance abuse. He does not smoke. He drinks alcohol frequently. He exercises weekly. He uses a seatbelt always. REVIEW OF SYSTEMS: Weight gain, high blood pressure, defibrillator, thyroid disease. FAMILY HISTORY: Mother with heart disease. Father with arthritis. PHYSICAL EXAM: Examination of bilateral feet show bilateral pes planus. He has well-healed surgical incisions over the medial aspect of the right ankle and posterior right ankle. He does have a palpable screw head inthe posterior aspect of his calcaneus that is nontender to palpation. He also has a prominent screw and hardware on the medial aspect of his right ankle, which again is nontender to palpation. He does have some tenderness over his talonavicular joint. He has rigid flatfoot deformities bilaterally. Regarding the left foot and ankle, he has tenderness to palpation over the 1st, 2nd, and 3rd TMT joints. Some tenderness over his talonavicular joint on the left. Nontender over his posterior tibialis tendon. He has a rigid flatfoot deformity. CMS intact distally bilaterally. 2+ dorsalis pedis pulses b ilaterally. IMAGING STUDIES: X-rays, 3 views of the right foot obtained in clinic with accession #[id number], were independently reviewed in the office and with the patient today. This shows hardware across the subtalar joint with a broken screw and some backing out of the screw head. There is also hardware plate and screw fixation across the talonavicular joint, which again shows a broken screw within the talonavicular joint. It appears he has some collapse of the arch of his foot. No acute fractures or dislocations noted. Difficult to determine if he has a union across his talonavicular or subtalar joints. X-ray, 3 views of the left foot obtained today in clinic with accession #[id number], were independentlyreviewed in the office and with the patient. These show joint space narrowing of the 1st, 2nd and 3rd tarsometatarsal joints. He has significant bone spurring medially and dorsally off the 1st TMT joint. Pes planus noted. No acute fractures or dislocations noted. ASSESSMENT: 1.Bilateral pes planus. 2.Status post right flatfoot reconstruction with broken hardware and suspected nonunion versus malunion. 3.Left 1st, 2nd and 3rd tarsometatarsal joint arthritis. PLAN: I discussed the physical and radiographic findings with the patient and how it relates to his symptomology today. Regarding the patient's right foot, I did discuss that I do not think an orthotic will significantly improve his symptoms of pain and discomfort in his right foot. If the patient feels he is a limited with regard to his right foot pain, my recommendation would be to proceed with a CT scanof the right ankle to evaluate for bony bridging across his subtalar and talonavicular joints. We will also be able to assess the arthritis in the surrounding joints. Regarding the left foot, I discussed with the patient that he does have a fair amount of arthritis throughout his 1st, 2nd, and 3rd tarsometatarsal joints. Recommendations today consist of continued ice, anti-inflammatory medications along with a fluoroscopy-guided cortisone injections into the 1st, 2nd, and 3rd TMT joints to reduce the inflammation and symptoms of pain. Regardless, if the patient is not interested in moving forward with any surgery at this time, I would recommend new custom orthotics as his are 7 to 8 years old. The patient does already have the prescription for the custom orthotics and I encouraged him to have that filled. The patient does feel fairly limited due to his right foot and ankle pain, so we will proceed with the CT scan of the right ankle and call the patient back once the results are available and further treatment recommendations at that time. I did discuss with the patient this will likely include some type of revision surgery to his right hindfoot that would require him to remain nonweightbearing on hisright foot for a period of 3 months. Despite everything discussed, I stressed to the patient that he is not doing any further damage to his feet or his ankles when he is having symptoms of pain. Pain is due to inflammation. If he feels like he can tolerate the foot and ankle pain and does decide to proceed with a right total knee replacement, I think this is up to the patient to decide if he does feel like he has no stability within theright foot and ankle to undergo the rehab following a knee replacement. All the patient's questions were answered today. He agrees with and understands the plan of care. I, Nichole Villeda PA-C, am serving as a scribe on [facility] Centeno to personally document services performed and statements dictated by Dr. Riley Wilkes. I, Dr. Riley Wilkes, was present during the services described in this documentation. I have reviewed the document for accuracy. TT: [address]: 20 minutes. Dictated by: Nichole Villeda PA-C FAP:MEDQ C: R:05/15/20 13:59 CONFIRM#:[id number] documented in this encounter Plan of Treatment Upcoming Encounters Date Type Specialty Care Team Description 05/29/2022 Appointment Orthopedics Kathi Fry PA-C [address] [place] [address] (Wo rk) documented as of this encounter Results CT Ankle Rt WO [...] 1 cm. Riley Wilkes MD RAD CT XR Foot Rt 3+ Views (05/15/2020 1:07 [...] left Pain, joint, ankle and foot, left Pain, joint, ankle and foot, right Pain, joint, ankle and foot, right documented in this encounter Care Teams Residential Glazier Relationship Specialty Start Date End Date Pcp, Pt MD Abraham PCP - General 07/14/18 06/14/20 [place] [address] documented as of this encounter
--- OUTSIDE RECORDS SUMMARY | 2022-05-14 09:05 | XMS_ITS | Encounter Summary ---
:1950 Author Organization [facility] Address [address] [place] [address] Care Team Providers Name Role Phone Pcp, Pt Declines Primary Care Provider Reason for Visit Reason Comments COVID Screening Encounter Details Date Type Department Care Team Description 06/13/2020 Telephone [facility] Sanjay Murrieta MD COVID Screening [address] [facility] [address] [place] [address] Dr [place] [address] [place] [address] [phone] (Wo rk) Social History Tobacco Use Types [...] documented as of this encounter Nursing Notes Bisi Franco - 06/13/2020 3:54 PM CDT Nurses please sign. Pre-operative testing for COVID-19. As part of preparation for your upcoming surgery/procedure/infusion you are required to have a test for the novel Coronavirus, COVID-19. Patient is a/an Procedures/Surgeries/Inductions/Infusions scheduled at [facility] or [facility] Please call your specialty clinic to get scheduled for COVID testing two days prior to the date of surgery/procedure/infusion in order to get your results before your procedure. It is important to self-quarantine between the test and surgery/procedure/infusion to avoid any additional exposure. Testing site hours: Friday through Friday 9:00am-6:00pm, Friday and Friday 9:00am-1:00pm documented in this encounter Plan of Treatment Upcoming Encounters Date Type Specialty Care Team Description 05/29/2022 Appointment Orthopedics Kathi Fry PA-C [address] [place], [place] [id number] (Wo rk) documented as of this encounter Results 2019 Novel Coronavirus (COVID-19) (06/14/2020 9:29 AM CDT) [facility] gist Method Time Signature COVID-19 Not Not 06/14/2020 [facility] Interpretation Detected Detected 4:31 PM CENTRAL LAB CDT Specimen Anatomical Collection Method Collection Time Receive d Time (Source) Location / / Volume Laterality Swab (Source Non-blood 06/14/2020 9:29 AM 0 Required) Collection / CDT 11:02 AM CDT Unknown Narrative [facility] - 06/14/2020 4:31 PM CDT Test performed by Training Technician Mediated Amplification. TMA has been shown to be equivalent to commercial real-time PCR t ests. This test has been authorized by the FDA under an Emergency Use Authorization (EUA) for use by authorized laboratories. Sanjay Murrieta MD LAB_1 Performing Organization Address City/State/ZIP Code Phon e Number [facility]AL [facility] [address] [phone] documented in this encounter Visit Diagnoses Diagnosis Screening examination for infectious dis ease - Primary Screening examination for unspecified in fectious disease documented in this encounter Care Teams Presser All Around Relationship Specialty Start Date End Date Pcp, Pt Declines, MD PCP - General 07/14/18 06/14/20 [place], [place] [id number] documented as of this encounter
--- OUTSIDE RECORDS SUMMARY | 2022-05-14 09:05 | XMS_ITS | Encounter Summary ---
:1950 Author Organization [facility] Address [address], [place] [address] Care Team Providers Name Role Phone Pcp, Pt Declines MD Primary Care Provider Encounter Details Date Type Department Care Team Description 06/11/2020 Office [address] [facility], Drive-Up Osteoarthritis of right [address] knee, [place] [address] osteoarthritis type [phone] Social History Tobacco Use Types Packs/Day Years [...] 05/29/2022 Appointment Orthopedics Kathi Fry PA-C [address] [place] [address] (Wo rk) documented as of this encounter Procedures Procedure Name Priority Date/Time Associated Diagnosis Comme nts 2019 NOVEL Routine 06/11/2020 7:49 Osteoarthritis of Results for this CORONAVIRUS AM CDT right knee, procedure are i n unspecified the results osteoarthritis type section. documented in this encounter Results 2019 Novel Coronavirus (COVID-19) (06/11/2020 7:49 AM CDT) [facility] Method Time Signature COVID-19 Not Not 06/12/2020 [facility] Interpretation Detected Detected 2:44 AM CENTRAL LAB CDT Specimen Anatomical Collection Method Collection Time Receive d Time (Source) Location / / Volume Laterality Swab (Source Non-blood 06/11/2020 7:49 AM 0 Required) Collection / CDT 10:35 AM CDT Unknown Narrative [facility] C[facility] - 06/12/2020 2:44 AM CDT Testing has been performed by Production Line Solderer Mediated Amplification. This test has been authorized by the FDA under an Emergency Use Authorization (EUA) for use by authorized laboratories. Sanjay Murrieta MD LAB_1 Performing Organization Address City/State/ZIP Code Phon e Number [facility] [address] [phone] documented in this encounter Visit Diagnoses Diagnosis Osteoarthritis of right knee, unspecifie d osteoarthritis type documented in this encounter Care Teams Machinist Instructor Relationship Specialty Start Date End Date Pcp, Skinny Rosario MD PCP - General 07/14/18 06/14/20 [place] [address] documented as of this encounter
--- OUTSIDE RECORDS SUMMARY | 2022-05-14 09:05 | XMS_ITS | Encounter Summary ---
:1950 Author Organization [facility] Address [address], [place] [address] Care Team Providers Name Role Phone Pcp, Pt Abraham RINCON Primary Care Provider Reason for Referral (Routine) - Incomplete Specialty Diagnoses / Procedures Referred By Contact Refer red To Contact Diagnoses Osteoarthritis of right knee, unspecified osteoarthritis type Sanjay Murrieta MD Procedures Case Request OR - Orthopedic Surgery: TOTAL KNEE JOINT REPLACEMENT [address] [facility] [place], [place] [address] Referral ID Status Reason Start Date Expiration Date Visits V isits Requested Authorized [id number] Incomplete 05/17/2020 08/16/2021 1 1 Encounter Details Date Type Department Care Team Description 05/17/2020 Notes/Orders [facility] Sanjay Murrieta MD Osteoarthritis of right CENTER [address] [facility] knee, unspecified [address] [place], [place] [address] (Primary Dx) [address] [phone] Social History Tobacco Use Types Packs/Day Years [...] 05/29/2022 Appointment Orthopedics Kathi Fry PA-C [address] [place] [address] (Wo rk) documented as of this encounter Results 2019 Novel Coronavirus (COVID-19) (06/11/2020 7:49 AM CDT) [facility] Method Time Signature COVID-19 Not Not 06/12/2020 [facility] Interpretation Detected Detected 2:44 AM CENTRAL LAB CDT Specimen Anatomical Collection Method Collection Time Receive d Time (Source) Location / / Volume Laterality Swab (Source Non-blood 06/11/2020 7:49 AM 0 Required) Collection / CDT 10:35 AM CDT Unknown Narrative [facility] - 06/12/2020 2:44 AM CDT Testing has been performed by Pbx Inspector Mediated Amplification. This test has been authorized by the FDA under an Emergency Use Authorization (EUA) for use by authorized laboratories. Sanjay Murrieta MD LAB_1 Performing Organization Address City/State/ZIP Code Phon e Number [facility] [address] [address] documented in this encounter Visit Diagnoses Diagnosis Osteoarthritis of right knee, unspecifie d osteoarthritis type - Primary documented in this encounter Care Teams Airport Shuttle Driver Relationship Specialty Start Date End Date PcpSkinny MD PCP - General 07/14/18 06/14/20 [place] [address] documented as of this encounter"
--- OUTSIDE RECORDS SUMMARY | 2022-05-14 09:05 | XMS_ITS | Encounter Summary ---
:1950 Author Organization [employer] Address [address] [place] [address] Care Team Providers Name Role Phone Pcp, Pt Declines Primary Care Provider Reason for Visit Reason Comments Post Visit Follow Up Phone Call Encounter Details Date Type Department Care Team Description 02/08/2020 Telephone [facility] Lilia Carrillo, Post Visit Follow Up [address] [facility] RN Phone Call [place], [place] [address] Social History Tobacco Use Types Packs/Day Years [...] 05/29/2022 Appointment Orthopedics Kathi Fry PA-C [address] [place] [address] (Wo rk) documented as of this encounter Visit Diagnoses Not on filedocumented in this encounter Care Teams Clamp Truck Driver Relationship Specialty Start Date End Date PcpSkinny MD PCP - General 07/14/18 06/14/20 [place], [place] [address] documented as of this encounter
--- OUTSIDE RECORDS SUMMARY | 2022-05-14 09:05 | XMS_ITS | Encounter Summary ---
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) Steve Tapia MD Procedures Kenalog [address] [facility] [address] [place] [address] Referral ID Status Reason Start Date Expiration Date Visits Requ ested Visits Authorized [id number] Closed 02/07/2020 05/08/2021 1 1 Reason for Visit Reason Comments Procedure Procedure/Equipment (Routine) - Incomplete Specialty Diagnoses / Procedures Referred By Contact Refer red To Contact Diagnoses 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) Kathi Fry PA-C Procedures FL C Arm 20 Pain Management [address] [facility] [address] [place] [address] Referral ID Status Reason Start Date Expiration Date Visits V isits Requested Authorized [id number] Incomplete 12/08/2019 03/08/2021 1 1 Encounter Details Date Type Department Care Team Description 02/07/2020 Procedure Visit [facility] Kathi Fry PA-C [address] [facility] [place] [address] [address] Steve Tapia MD [address] [facility] [place] [address] [place] [address] 2, Alessandro Eleazar Rn [phone] Social History Tobacco Use Types Packs/Day Years [...] Sign Reading Time Taken Comments Blood Pressure 132/82 02/07/2020 12:55 PM CDT Pulse 60 02/07/2020 12:55 PM CDT Temperature 36.3 ??C (97.4 ??F) 02/07/2020 11:53 AM CDT Respiratory Rate 18 02/07/2020 12:55 PM CDT Oxygen Saturation 95% 02/07/2020 12:55 PM CDT Inhaled Oxygen Concentration - - Weight - - Height - - Body Mass Index - - documented in this encounter Patient Instructions Patient InstructionsTabatha Torres RN - 02/07/2020 11:50 AM CDT FOLLOW UP PLAN: Please follow up with Kathi ARMAS in 10-14 days; call [phone] to schedulean appointment if you do not already have one Facet Injection Post-Procedure Instructions: ?? Rest today, you may resume your normal activities tomorrow (Physical Therapy & personal care attendant can also be resumed next day). ?? Refrain from driving until tomorrow (Local anesthetic near the spine has the potential to make you weak or slow your reaction time) ?? Apply ice to site (20 minutes on/ 20 minutes off) for the next 48 hours if you experience any soreness or pain. ?? No heat to site for next 48 hours (car seat warmers, heating pads, electric blankets, etc) ?? No tub baths, pools, hot tubs or lakes for 2 days. You may shower. ?? Resume your regular diet and medications ?? One or more band-aids have been applied to the injection site(s). Please leave on today; you may remove them in the morning. If they fall off, no need to replace. ?? After a few hours the numbing (anesthetic) will wear off and pain may return. It often takes about 3-10 days for the steroid to reach full effect, as a result you may not notice any significant decrease in pain for a week or more ?? You may experience the following symptoms which are NORMAL ?? up to 6 hours after your injection: ?? Warmth ?? Tingling ?? Heaviness ?? Numbness ?? Can last a day or 2 post injection ?? Flushing in face ?? Insomnia/difficulty sleeping ?? If the symptoms last more than 12 hours, call the doctor Dr. Steve Tapia MD Interventional Pain Physician and Anesthesiologist Please contact the Pain Nurse ([phone]) for all medical/procedural questions regarding your care at the [facility] Please contact our Bilingual Speech Therapist ([phone]) for all administrative/scheduling questions related to the [facility] Medication Requests: Prescriptions requiring refills must be requested from the prescribing physician. If Dr. Tapia prescribed your medication, call the number above. If any other physician prescribed your medication, please contact his or her office to discuss. documented in this encounter Progress Notes Mary Nickerson RN - 02/07/2020 11:50 AM CDT Patient here for facet injection procedure. Patient rates pain in back, 0/10 at rest, 6/10 with activity. Verified NPO status. Pre-op teaching completed, patient verbalizes understanding. 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 Consent per MD. Tabatha Torres RN - 02/07/2020 11:50 AM CDT Patient tolerated procedure well, vital signs stable. Post-procedure pain level 0/10 at rest,0/10 with activity. Discharge instructions given (written & verbal review), patient verbalized understanding. Patient discharged to home at 1255 via amb with Son.. documented in this encounter Procedure Notes Steve Tapia MD - 02/07/2020 11:50 AM CDT Images from the original note were not included. Procedure Note Intra-articular Facet Injection Procedure Date: 02/07/2020 Merrick Petty Date of : 1950 PREOPERATIVE DIAGNOSIS: Spondylosis/facet joint pain POSTOPERATIVE DIAGNOSIS: same OPERATION PERFORMED: Bilateral Intra-Articular Facet Injections at the level(s): L3/4, L4/5 and L5/S1. Interventionalist: Steve Tapia MD IV SEDATION #1: Midazolam:0 mg IV SEDATION #2: Fentanyl: 0 mcg ESTIMATED BLOOD LOSS: None FLUIDS: 0mL, 0.9% Sodium Chloride FLUOROSCOPY WAS USED. TOTAL SEDATION TIME: 0 minutes. COMPLICATIONS: None INDICATIONS FOR PROCEDURE: This is a 69 y.o. year old male with a clinical picture consistent with facet arthropathy and facet-mediated pain. PROCEDURE AND FINDINGS: After the potential risks, benefits, and alternatives of the procedure were explained to the patient, written informed consent was obtained. The patient was taken to the procedure room and placed in the prone position. A time out was completed verifying correct patient, procedure, site, position, implants, and/or special equipment. The areaover the spine was prepped and draped in the usual sterile fashion using Duraprep. At this point, the fluoroscopic view was obtained in a slightly oblique fashion. The Bilateral facet joints at level(s) mentioned above were identified. Using a 1.5-inch 25- gauge needle, the skin and subcutaneous tissuewere infiltrated with approximately 2mL of 1% lidocaine at each level. After achieving sufficient anesthesia, 22-gauge 3.5-inch needles were advanced under live fluoroscopic guidance to a facet joint intra-articular position at the aforementioned levels -- on the Right. The image was transitioned to a lateral view and verification of the needle tips was achieved, noting adequate but safe depth. At this point, in the AP view, 0.5mls of Isovue-M 300 dye from a 10cc vial was injected at each level and we found adequate outline of the facet joints. A treatment mixture containing 6cc of 0.5% Bupivacaine and 80mg Kenalog was prepared. At this point, 1mL total injectate volume, from the steriod- containing mixture was injected intra-articularly at each level. The needles were re-styletted and removed. The identical procedure was repeated on the contralateral side. The total steroid dose was 80mg of Kenalog. The patient was carefully escorted to the recovery room where they were monitored for a brief periodof time. The patient tolerated the procedure well and was discharged home, with a public transit bus driver, in stable condition with post procedural instructions. Prior to the procedure, the patient reported a pain score of 0/10 at rest and 6/10 with activity. Shortly before discharge, we noted a pain score of 0/10 at rest and 0/10 with activity. Follow up will be with Dr. Fry, according to pertinent medical record documentation. COVID-era decision making: ??? Reasonable attempts at conservative, alternative pain treatments have been attempted and are ongoing. ??? The case has been independently reviewed by the performing physician for appropriateness, consideration of medical comorbidities , alternative treatment strategies and evaluated for risk according to ASIPP guidelines (see below). In accordance with the [place] Society of Interventional Pain Physicians (MSIPP) group guidelines for procedure selection, I believe the above procedure meets the following criteria: The patient is experiencing a severe pain episode that would otherwise cause the patient to go to the hospital, emergency room or primary care office and Improve the patient's quality of daily life including mobility, sleep and work documented in this encounter Plan of Treatment Upcoming Encounters Date Type Specialty Care Team Description 05/29/2022 Appointment Orthopedics Kathi Fry PA-C [address] [place] [address] (Wo rk) documented as of this encounter Procedures Procedure Name Priority Date/Time Associated Diagnosis Comme nts FL C ARM 20 PAIN Routine 02/07/2020 12:47 Spondylosis of lumba r Results for this MANAGEMENT PM CDT region without procedure are in myelopathy or the results radiculopathy section. documented in this encounter Results FL C Arm 20 Pain Management (02/07/2020 12:47 PM CDT) Anatomical Region Laterality Modality Radiographic Imaging Specimen (Source) Anatomical Location Collection Method / Collectio n Time Received Time / Laterality Volume Narrative 02/07/2020 12:54 PM CDT Images obtained during surgical procedure. Kathi Fry PA-C RAD FL documented in this encounter Visit Diagnoses Diagnosis Spondylosis of lumbar region without mye lopathy or radiculopathy (HRC) Lumbosacral spondylosis without myelopat hy documented in this encounter Care Teams Ends Breakage Clerk Relationship Specialty Start Date End Date Pcp, Skinny Rosario MD PCP - General 07/14/18 06/14/20 [place] [address] documented as of this encounter
--- OUTSIDE RECORDS SUMMARY | 2022-05-14 09:05 | XMS_ITS | Encounter Summary ---
:1950 Author Organization [facility] Address [address] [place] [address] Care Team Providers Name Role Phone Pcp, Pt Declines Primary Care Provider Encounter Details Date Type Department Care Team Description 06/01/2020 Notes/Orders [facility] SteSanjay stoll MD Pre-meal blood CENTER [address] [place] [address] glucose between [address] [place] [address] and 11.9 mmol/l [place] [id number] (Primary Dx) [phone] (Wo rk) Social History Tobacco Use Types [...] 05/29/2022 Appointment Orthopedics Kathi Fry PA-C [address] [place], [place] [address] (Wo rk) documented as of this encounter Visit Diagnoses Diagnosis Pre-meal blood glucose between 8.0 and 1 1.9 mmol/l - Primary documented in this encounter Care Teams Quad Stayer Relationship Specialty Start Date End Date Pcp, Skinny Rosario MD PCP - General 07/14/18 06/14/20 [place] [address] documented as of this encounter
--- OUTSIDE RECORDS SUMMARY | 2022-05-14 09:05 | XMS_ITS | Encounter Summary ---
:1950 Author Organization [email or web address] Address [address] [address] Care Team Providers Name Role Phone Needs Pcp, Assignment Primary Care Provider Reason for Visit Auth/Cert Specialty Diagnoses / Procedures Referred By Contact Refer red To Contact Diagnoses Osteoarthritis of right knee, unspecified osteoarthritis type Procedures TOTAL KNEE JOINT REPLACEMENT Referral ID Status Reason Start Date Expiration Date Visits Requ ested Visits Authorized 1 1 Encounter Details Date Type Department Care Team Description 06/15/2020 Anesthesia Event [facility] Lyndon Araiza MD [address] [place], [place] [address] Levi Coughlin APRN, CRNA [address] [place], [place] [address] [address] [facility] [place], [place] [address] Anesthesia Record Procedure Summary Procedure Name Responsible Anesthesia Start Anesthesia Stop Anesthesiologist Time Time TOTAL KNEE JOINT Ta Araiza MD 06/15/20 1039 06/15/20 13 06 REPLACEMENT (Right: Knee) Events Date Time Event Comment 06/15/2020 1039 An Start 1039 Quick Note Anesthesia start time denotes sedation started by CUSHION BUILDER currently o n case; patient continuously monitored to O.R . By CUSHION BUILDER 1041 / Present 1042 An Start Data 1048 Face Tent 1048 MD/DO Present Limited visit tk a 1100 An Tourn Inflated 1239 MD/DO Present 1253 An Tourn Deflated 1300 an stop data 1306 An Stop Care transferred . 1306 Care Handoff Note I discussed wi th the receiving nurse and we: 1) Identified the p atient, khan family member(s) or patient surrogat e 2) Identified the responsible practitioner 3) Reviewed the pertinent medical history 4) Discu ssed the surgical/procedure course 5) Reviewed intr a-op anesthesia management and issues during an esthesia 6) Set expectations for the post-procedu re period 7) Allowed opportunity for questions an d acknowledgement of understanding of report Electr onically signed by Levi Renee APRN, C RNA Name Total midazolam injection 2 mg/2 mL (VERSED) 1 mg fentaNYL injection (SUBLIMAZE) 25 mcg lidocaine 1% PF injection (XYLOCAINE) 50 mg propofol 10 mg/mL for procedural sedation (aka diPRIva n) 30 mg propofol 10 mg/mL for procedural sedation (aka diPRIva n) 660.3 mg ondansetron injection (ZOFRAN) 4 mg phenylephrine 100 mcg/mL in NaCl 0.9% syringe 700 mcg ePHEDrine 25 mg prediluted syringe 30 mg ceFAZolin (ANCEF) 3 g in sodium chloride 0.9 % 100 mL IVPB 3 g tranexamic acid (CYKLOKAPRON) 1,000 mg in sodium chlor román 0.9 % 50 mL IVPB 2,000 mg dexamethasone 4 mg/mL injection (DECADRON) 4 mg lactated ringers infusion 1,000 mL Agents Name O2 Air Identified Agent Name Blood No blood administrations on file. Lines, Drains, and Airways Type Details Placement Removal Peripheral IV Placement Date: 06/15/20858 by 06/16/20213 b y 06/15/20; Placement Lisa Chavez, Anca Lin RN Time: 858; Pre-existing: No; Inserted by?: RN; Size (Gauge): 18 G; Orientation: Right; Site Prep: ChloraPrep; Local Anesthetic: Injectable, 1.0 ML intradermal; Insertion attempts: 1; Blood draw with insertion?: no; Patient Tolerance: Tolerated well; Removal Date: 06/16/20; Removal Time: 213; Removal Reason: Removed by patient; Catheter Tip: Intact Incision/Surgical Site 06/15/20; 1113; #1; 06/15/20 1113 by 10/0 3/20 1240 by Lda, No; Knee; Right; Sarahi Orona RN Discontinu e 07/01/20; 1240 documented in this encounter Social History Tobacco Use Types Packs/Day Years [...] on file documented as of this encounter Miscellaneous Notes Anesthesia Postprocedure Evaluation - Nichole Vásquez MD - 06/15/2020 2:12 PM CDT [facility] Anesthesia Post-op Note Patient: Merrick Petty Post-Op Diagnosis: Osteoarthritis of right knee, unspecified osteoarthritis type Procedure Performed: Procedure(s): Right - TOTAL KNEE JOINT REPLACEMENT - Wound Class: 1 CLEAN Anesthesia Type: Spinal Post-op vital signs: Vitals Value Taken Time BP 129/83 06/15/2020 1:46 PM Temp 36 ??C (96.8 ??F) 06/15/2020 2:02 PM Pulse 60 06/15/2020 2:00 PM Resp 18 06/15/2020 2:00 PM SpO2 91 % 06/15/2020 2:00 PM Pain Score: Presence Of Pain: denies Preferred Pain Scale: number (Numeric Rating Pain Scale) Pain Rating (0-10): Rest: non-verbal Post-op assessment: No anesthesia complication. Patient location: PACU Airway Status: Patent Cardiovascular function: Satisfactory Hydration status: Satisfactory PONV: None Level of Consciousness: Awake Fully Participates Postop Assessment: Patient tolerated procedure well. Electronically signed by: Nichole Vásquez MD 06/15/2020 2:12 PM Anesthesia Procedure Notes - Ta Araiza MD - 06/15/2020 10:49 AM CDT Associated Order(s): Spinal Anesthetic Spinal Anesthetic Performed by: Ta Araiza MD Authorizing/Supervising provider: Ta Araiza MD Performed by: Anesthesiologist Patient Location OR Checklist: risks and benefits discussed, IV checked, anesthesia consent, monitors and equipment checked, patient identified and pre-op evaluation Correct patient: yes Correct procedure: yes Correct site: yes Patient Position: sitting Sterile prep: Betadine, Hat, Sterile gloves and Mask Insertion site: L3-4 Approach: midline Needle type: Hardeep Needle gauge: 25 G Needle length: 3.5 in Introducer needle used Attempts: 1 Monitoring: monitoring engineer and continuous pulse ox CSF: adequate CSF flow from spinal needle Paresthesias: No Local anesthetic: Bupivacaine 0.75 % Dose 2 mL Events: None Complications: none Pt tolerated procedure well Notes: Ta Araiza MD Anesthesia Preprocedure Evaluation - Ta Araiza MD - 06/15/2020 8:22 AM CDT [facility] Anesthesia Pre-op Evaluation Procedure: Procedure(s): Right - TOTAL KNEE JOINT REPLACEMENT HPI: 69 y.o. old male with Osteoarthritis of right knee, unspecified osteoarthritis type NPO Status: No Known Allergies Past Medical History: Diagnosis Date ??? Atrial fibrillation (HRC) ??? Hypertension ??? Hypothyroid (HRC) 12/14/2018 ??? ICD (implantable cardioverter defibrillator) pocket hematoma Patient Active Problem List Diagnosis ??? Hypothyroid (HRC) ??? Primary osteoarthritis of both knees ??? Complex tear of medial meniscus as current injury ??? Osteoarthritis of right knee No past surgical history on file. No outpatient medications have been marked as taking for the 06/15/20 encounter (Hospital Encounter). Current Facility-Administered Medications Medication Dose Route Frequency ??? acetaminophen (TYLENOL) tablet 1,000 mg 1,000 mg Oral Once ??? ceFAZolin (ANCEF) 3 g in sodium chloride 0.9 % 100 mL IVPB 3 g Intravenous Once ??? celecoxib (CeleBREX) capsule 200 mg 200 mg Oral Once ??? fentaNYL (SUBLIMAZE) injection 25-50 mcg 25-50 mcg Intravenous Q5MIN PRN ??? fentaNYL (SUBLIMAZE) injection 25-50 mcg 25-50 mcg Intravenous Q5MIN PRN ??? HYDROmorphone (DILAUDID) injection 0.2-0.3 mg 0.2-0.3 mg Intravenous Q10MIN PRN ??? lactated ringers infusion 25 mL/hr Intravenous Continuous ??? lidocaine PF (XYLOCAINE) 1 % injection 0.1-0.3 mL 0.1-0.3 mL Subcutaneous Once And ??? lidocaine PF (XYLOCAINE) 1 % injection 0.1-0.3 mL 0.1-0.3 mL Subcutaneous PRN ??? meperidine (DEMEROL) injection 12.5 mg 12.5 mg Intravenous Q5MIN PRN ??? midazolam (VERSED) injection 1-2 mg 1-2 mg Intravenous Q5MIN PRN ??? naloxone (NARCAN) injection 0.08 mg 0.08 mg Intravenous PRN ??? naloxone (NARCAN) injection 0.4 mg 0.4 mg Intravenous ONCE PRN ??? ondansetron (ZOFRAN) injection 4 mg 4 mg Intravenous Once ??? ondansetron (ZOFRAN) injection 4 mg 4 mg Intravenous Q4H PRN ??? oxyCODONE (OXYCONTIN) controlled release tablet 10 mg 10 mg Oral Once ??? tranexamic acid (CYKLOKAPRON) 1,000 mg in sodium chloride 0.9 % 50 mL IVPB 1,000 mg Intravenous Once ??? vancomycin (VANCOCIN) powder for intra-op use 8 g 8 g See Admin Instructions Once Labs: No results found for: SODIUM, K, CHLORIDE, CO2, BUN, CREATININE, GLUCOSE No results found for: WBC, HGB, HCT, PLTS No results found for: INR Blood Bank: No results found for: ABO, ABSCR EKG: No results found for this or any previous visit. Physical Exam: Ht 6' 7 Wt (!) 137.9 kg (304 lb) BMI 34.25 kg/m?? Assessment/Plan: Review of Systems Patient does not have GERD. Patient is not a current smoker. The patient denies alcohol use. Patient denies any recent URI. History of PONV: No. History of motion sickness: No. Patient denies any personal or family history of anesthesia complications (PONV). Exam Mental Status: Alert and oriented. Mallampati score: II (Two). Mouth opening: Normal Thyromental Distance: > 3 finger breadths and Normal Neck Extension: Full Neck Circumference > 40 cm?: No Current airway assessment:Normal Dentition: Normal. Cardiac Exam: Regular rate and rhythm. Respiratory Exam: Breath sounds clear to auscultation Assessment ASA Status: 3 . Plan Anesthesia type: Spinal Induction: Maintenance: TIVA PONV Risk Score Peds:0 PONV Risk Score Adult: 1 PONV Prophylaxis (planned): Ondansetron and Decadron Anesthetic plan, risks, benefits and alternatives discussed with: Patient or Cnc Maintenance Technician agree tothe anesthesia treatment plan and Patient. H&P Reviewed and Patient examined, no change observed IV access Antibiotics per surgery Electronically signed by: Ta Araiza MD 06/15/2020 8:22 AM documented in this encounter Plan of Treatment Upcoming Encounters Date Type Specialty Care Team Description 05/29/2022 Appointment Orthopedics Kathi Fry PA-C [address] [place] [address] (Wo rk) documented as of this encounter Procedures Procedure Name Priority Date/Time Associated Diagnosis Comme nts SPINAL BLOCK Routine 06/15/2020 10:49 AM Results for this CDT procedure are i n the results section . documented in this encounter Results SPINAL BLOCK (06/15/2020 10:49 AM CDT) Narrative EXTERNAL RESULTS - 06/15/2020 10:49 AM Ta Lee MD ? 06/15/2020 10:49 AM Spinal Anesthetic Performed by: Ta Araiza MD Authorizing/Supervising provider: ??Ta Torres MD Performed by: Anesthesiologist Patient Location OR Checklist: risks and benefits discussed, IV checked, anesthesia consent, monitors and equipment checked, patient identified and pre-op evaluation Correct patient: yes Correct procedure: yes Correct site: yes Patient Position: sitting Sterile prep: Betadine, Hat, Sterile ronan ves and Mask Insertion site: L3-4 Approach: midline Needle type: Hardeep Needle gauge: 25 G Needle length: 3.5 in Introducer needle used Attempts: 1 Monitoring: monitoring engineer and continuo us pulse ox CSF: ??adequate CSF flow from spinal nee dle Paresthesias: ??No Local anesthetic: ??Bupivacaine 0.75 % Dose 2 mL Events: None Complications: none Pt tolerated procedure well Notes: Ta Araiza MD Ta Araiza MD ANESTHESIA/AR Performing Organization Address City/State/ZIP Code Phon e Number EXTERNAL RESULTS documented in this encounter Visit Diagnoses Not on filedocumented in this encounter Administered Medications Inactive Administered Medications - up to 3 most recent administrations Medication Order MAR Action Action Date Dose Rate Site ceFAZolin (ANCEF) 3 g in sodium Started 06/15/2020 10:50 AM CDT 3 g chloride 0.9 % 100 mL IVPB 3 g, Intravenous, Administer over 30 Minutes, ONCE, On Faye 06/15/20 at 0830, For 1 dose, Infuse within 60 minutes prior to incision; Re-dose 2 gram IV every 4 hours after initial dose until incision closed., Pre-op dexamethasone (DECADRON) injection Given 06/15/2020 11:50 AM CDT 4 mg Starting on Faye 06/15/20 at 1150, Until Faye 06/15/20 at 1306 ePHEDrine 5 mg/mL in 0.9% sodium chloride Given 06/15/2020 11:40 AM CDT 5 mg syringe Starting on Faye 06/15/20 at 1109, Until Faye 06/15/20 at 1306 Given 06/15/2020 11:26 AM CDT 5 mg Given 06/15/2020 11:18 AM CDT 5 mg fentaNYL (SUBLIMAZE) injection Given 06/15/2020 10:42 AM CDT 25 mcg Intravenous, Starting on Faye 06/15/20 at 1042, Until Faye 06/15/20 at 1306 lactated ringers infusion Started 06/15/2020 12:49 PM CDT 25 mL/hr, Intravenous, CONTINUOUS, Starting on Faye 06/15/20 at 0830, Administer on all preop surgery patients, ages 12 and older, unless specified differently in the Protocol for Preop Initiation of IV fluids Order Set., Pre-op Started 06/15/2020 9:00 AM CDT 25 mL/hr 25 mL/hr lidocaine PF (XYLOCAINE) 1 % injection Given 06/15/2020 10:48 AM CDT 50 mg Starting on Faye 06/15/20 at 1048 midazolam (VERSED) injection Given 06/15/2020 10:39 AM CDT 1 mg Intravenous, Starting on Faye 06/15/20 at 1039, Until Faye 06/15/20 at 1306 ondansetron (ZOFRAN) injection Given 06/15/2020 12:45 PM CDT 4 mg Intravenous, Starting on Faye 06/15/20 at 1245, Until Faye 06/15/20 at 1306 phenylephrine-NaCl 0.9% (NOEMY-SYNEPHRINE) Given 06/15/2020 11:40 AM CDT 100 mcg injection Intravenous, Starting on Faye 06/15/20 at 1101, Until Faye 06/15/20 at 1306 Given 06/15/2020 11:29 AM CDT 100 mcg Given 06/15/2020 11:26 AM CDT 100 mcg propofol (DIPRIVAN) 10 mg/mL Rate/Dose 06/15/2020 40 mcg/kg/min 32.1 1 injection Change 11:29 AM CDT mL/hr Intravenous, Starting on Faye 06/15/20 at 1048, Until Faye 06/15/20 at 1306 Rate/Dose Change 06/15/2020 11:23 AM CDT 45 mcg/kg/min 36.13 mL/hr Rate/Dose Change 06/15/2020 11:08 AM CDT 35 mcg/kg/min 28.1 mL/hr propofol (DIPRIVAN) 10 mg/mL injection Given 06/15/2020 10:50 AM CDT 30 mg Intravenous, Starting on Faye 06/15/20 at 1050, Until Faye 06/15/20 at 1306 tranexamic acid (CYKLOKAPRON) 1,000 mg in Bolus 2019 12:42 PM CDT 1,000 mg sodium chloride 0.9 % 50 mL IVPB 1,000 mg, Intravenous, ONCE, On Faye 06/15/20 at 0830, For 1 dose, Maximum administration rate is 100 mg/minute. To be given in OR by CUSHION BUILDER prior to incision. Re-dose 1000 mg IV during wound closure., Pre-op Started 06/15/2020 10:54 AM CDT 1,000 mg documented in this encounter Care Teams Associate Professor Of Forestry Relationship Specialty Start Date End Date Needs Pcp, Assignment PCP - General 06/15/20 06/22/20 [place] [address] documented as of this encounter
--- OUTSIDE RECORDS SUMMARY | 2022-05-14 09:05 | XMS_ITS | Encounter Summary ---
:1950 Author Organization [employer] Address [address], [place] [address] Care Team Providers Name Role Phone Pcp, Pt Abraham RINCON Primary Care Provider Reason for Visit Reason Comments Medication Questions xarelto prior to surgery Encounter Details Date Type Department Care Team Description 06/09/2020 Telephone [facility] SteSanjay stoll MD Medication Questions CENTER [address] [place] [address] (xarelto prior to [address] [facility] [place]) [place], [place] [address] [phone] (Wo rk) Social History Tobacco Use Types [...] as of this encounter Nursing Notes Seema Cheney, STACIE - 06/12/2020 1:16 PM CDT Patient is taken care of and questions regarding Xeralto where answered. He will be having surgery on June 15. Mauro Rivera, KELSEA - 06/12/2020 9:04 AM CDT Pt was called on Friday regarding his Xarelto and having his prescribing MD manage being off for surgery. Pt is coming into clinic today to see another provider so will discuss with Seema if he has more questions regarding being off blood thinner. Will route to Seema. Theresa Levine RN - 06/09/2020 5:49 PM CDT Pending surgery w/ [facility] 06/15/2020. Wondering about his xarelto dosing prior to surgery. Patient states that PMD told him one thing, Cards told him to ask the surgeon, I explained we likethe ordering provider to manage dosing. I explained that I would pend this up to the surgeon for a reply. documented in this encounter Plan of Treatment Upcoming Encounters Date Type Specialty Care Team Description 05/29/2022 Appointment Orthopedics Kathi Fry PA-C [address] [place] [address] (Wo rk) documented as of this encounter Visit Diagnoses Not on filedocumented in this encounter Care Teams Solar Project Manager Relationship Specialty Start Date End Date Skinny Peralta MD PCP - General 07/14/18 06/14/20 [place], [place] [address] documented as of this encounter
--- OUTSIDE RECORDS SUMMARY | 2022-05-14 09:05 | XMS_ITS | Encounter Summary ---
:1950 Author Organization [facility] Address [address] [place] [address] Care Team Providers Name Role Phone Pcp, Pt Declines Primary Care Provider Reason for Referral Consult/Transfer Care (Routine) - Closed Specialty Diagnoses / Procedures Referred By Contact Refer red To Contact Diagnoses Pes planus of both feet Aba Lemus APRN, CNP [address] [facility] [place] [address] Referral ID Status Reason Start Date Expiration Date Visits Requ ested Visits Authorized [id number] Closed 03/20/2020 09/16/2020 1 1 Scheduling Instructions This order is your clinician's recommend ation for a service and is not an insurance referral which authorizes payment. The r ecommended service and/or location may not be covered by your insurance plan. Please c all the number on your insurance card to find out your specific benefits and coverage for the recommended services and/or location. If you need help scheduling the recommen ded services, please ask your clinician's staff to assist you. Encounter Details Date Type Department Care Team Description 03/20/2020 Notes/Orders [facility] Aba Lemus, Pes plan us of both CENTER FLAKITA HUITRON feet (Primary Dx) [address] [facility] [address] [facility] [place] [address] [place] [phone] [id number] (Wo rk) Social History Tobacco Use Types [...] 05/29/2022 Appointment Orthopedics Kathi Fry PA-C [address] [place] [address] (Wo rk) Scheduled Referrals Name Type Priority Associated Diagnoses Order S chedule PROCUREMENT BUYER CONSULT (AMB) Referral Routine Pes planus of bot h feet Ordered: 03/20/2020 documented as of this encounter Visit Diagnoses Diagnosis Pes planus of both feet - Primary documented in this encounter Care Teams Precision Dancer Relationship Specialty Start Date End Date Pcp, Skinny Rosario MD PCP - General 07/14/18 06/14/20 [place] [address] documented as of this encounter
--- OUTSIDE RECORDS SUMMARY | 2022-05-14 09:05 | XMS_ITS | Encounter Summary ---
:1950 Author Organization [employer] Address [address], [place] [address] Care Team Providers Name Role Phone Pcp, Pt Declines Primary Care Provider Reason for Visit Auth/Cert Specialty Diagnoses / Procedures Referred By Contact Refer red To Contact Diagnoses Osteoarthritis of right knee, unspecified osteoarthritis type Procedures TOTAL KNEE JOINT REPLACEMENT Referral ID Status Reason Start Date Expiration Date Visits Requ ested Visits Authorized 1 1 Encounter Details Date Type Department Care Team Description 06/14/[address], Drive-Up Screening examination [address] [facility] [place] [address] Social History Tobacco Use Types Packs/Day Years [...] 05/29/2022 Appointment Orthopedics Kathi Fry PA-C [address] [place] [address] (Wo rk) documented as of this encounter Procedures Procedure Name Priority Date/Time Associated Diagnosis Comme nts 2019 NOVEL Routine 06/14/2020 9:29 AM Screening Results f or this CORONAVIRUS CDT examination for procedure ar e in infectious disease the resul ts section. documented in this encounter Results 2019 Novel Coronavirus (COVID-19) (06/14/2020 9:29 AM CDT) [facility] gist Method Time Signature COVID-19 Not Not 06/14/2020 [facility] Interpretation Detected Detected 4:31 PM CENTRAL LAB CDT Specimen Anatomical Collection Method Collection Time Receive d Time (Source) Location / / Volume Laterality Swab (Source Non-blood 06/14/2020 9:29 AM 0 Required) Collection / CDT 11:02 AM CDT Unknown Narrative [facility] - 06/14/2020 4:31 PM CDT Test performed by Studio Artist Mediated Amplification. TMA has been shown to be equivalent to commercial real-time PCR t ests. This test has been authorized by the FDA under an Emergency Use Authorization (EUA) for use by authorized laboratories. Sanjay Murrieta MD LAB_1 Performing Organization Address City/State/ZIP Code Phon e Number [facility] [address] [id number] documented in this encounter Visit Diagnoses Diagnosis Screening examination for infectious dis ease Screening examination for unspecified in fectious disease documented in this encounter Care Teams Rehabilitation Director Relationship Specialty Start Date End Date PcpSkinny MD PCP - General 07/14/18 06/14/20 [place] [address] documented as of this encounter
--- OUTSIDE RECORDS SUMMARY | 2022-05-14 09:05 | XMS_ITS | Encounter Summary ---
:1950 Author Organization [employer] Address [address], [place] [address] Care Team Providers Name Role Phone Pcp, Pt Declines Primary Care Provider Reason for Visit Reason Comments Foot Pain right foot Encounter Details Date Type Department Care Team Description 06/12/2020 Office Visit Riley Lee, Right foot pain (Primary Dx); CENTER Left foot pain [address] [facility] [address] [facility] [address] [place] [address] [place], [place] [phone] (Wo rk) Social History Tobacco Use Types [...] as of this encounter Patient Instructions Patient InstructionsDoug mcmanusdale Sandhu - 06/12/2020 9:[address] Riley Wilkes MD Orthopaedic Surgeon/Foot & Ankle Specialist [place], [facility] Medication Requests: Prescriptions are not filled on weekends or on weekdays after 3:00 PM documented in this encounter Progress Notes Riley Wilkes MD - 06/12/2020 12:00 PM CDT NAME: RAIN CENTENO MR#: [id number] CSN: [id number] AUTHENTICATING CLINICIAN: Riley Wilkes MD CONFIRM #: [id number] LOC: 711 CLINIC PROGRESS NOTE DATE OF VISIT: 06/12/2020 : 1950 CHIEF COMPLAINT: 1.Left foot arthritis. 2.Right foot nonunion. HISTORY OF PRESENT ILLNESS: Mr. Centeno presents today for further evaluation. A CT scan has been obtained, which is available forreview. The CT scan is significant for showing a nonunion across the subtalar and talonavicular joints. He presents otherwise with a relatively healthy-looking ankle with some anterior osteophyte formation. There is some backing out of one of the screws across the subtalar joint. PHYSICAL EXAM: Not performed today. ASSESSMENT: 1.Left tarsometatarsal joint arthritis. 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 PLAN: I discussed with the patient that at this point, the only way to improve his discomfort and condition would be by performing a revision surgery on the right foot, which will consist of a right subtalarand talonavicular joint revision arthrodesis with proximal tibial bone graft harvesting. The patient is planned to undergo a right total knee arthroplasty within the next 3 calendar days. If in fact that is the case and it is successful, we most likely will have to harvest the proximal tibia from the opposite leg. In the meantime, patient has no activity restrictions. We will consider the possibility of injectionalong the first, second and third tarsometatarsal joints for the left foot for a diagnosis of osteoarthritis. This will be performed with lidocaine and Kenalog. This will be repeated at his own discretion as long as they are every 3 months. We [place] also [place] questions were answered. Patient pleased with discussion. Patient will follow up accordingly. TT: [address]: 10 minutes. FAP:MEDQ C: R:06/12/20 12:12 CONFIRM#:[id number] documented in this encounter Plan of Treatment Upcoming Encounters Date Type Specialty Care Team Description 05/29/2022 Appointment Orthopedics Kathi Fry PA-C [address] [place], [place] [address] (Wo rk) documented as of this encounter Visit Diagnoses Diagnosis Right foot pain - Primary Pain in limb Left foot pain Pain in limb documented in this encounter Care Teams Flood Control Engineer Relationship Specialty Start Date End Date Pcp, Skinny Rosario MD PCP - General 07/14/18 06/14/20 [place], [place] [address] documented as of this encounter
--- OUTSIDE RECORDS SUMMARY | 2022-05-14 09:05 | XMS_ITS | Encounter Summary ---
:1950 Author Organization [employer] Address [address] [place] [id number] Care Team Providers Name Role Phone Pcp, Pt Declines Primary Care Provider Reason for Visit Reason Comments QUESTIONS, GENERAL Encounter Details Date Type Department Care Team Description 06/06/2020 Telephone [facility] Riley Cutler MD QUESTIONS, GENERAL [address] [address] [address] [place] [address] [place] [address] [phone] (Wo rk) Social History Tobacco Use Types [...] encounter Nursing Notes Nithya Berry RN - 06/07/2020 3:20 PM CDT Called patient and dicussed his appointment. Renee Schreiber - 06/06/2020 4:35 PM CDT Patient is returning Nithya's call, he will be available for the rest of the day Nithya Berry RN - 06/06/2020 4:16 PM CDT Called patient to discuss questions regarding the CT scan. Left message to return my call. Appointment on 06-12-2020 with . Alanna Love - 06/06/2020 1:31 PM CDT Has the patient recently had surgery or an injury? No What test are you calling about: CT RESULTS Who ordered it: DR SALINAS Where was the test done: [facility] When did you have it done: 05/24/2020 If a prescription is needed, would you like it filled at our [facility]??? pharmacy? [Covering Machine Operator Helper/Appt Center: Was the pharmacy entered into the Preferred Pharmacy field? No] Is it okay to leave detailed message on your voicemail? YES [Covering Machine Operator Helper/Appt Center: If this call is after 3 p.m., communicate to patient: If we are not able to get back to you by the end of the day and your symptoms worsen please contact the Careline] [Covering Machine Operator Helper: Inform patient that if they are active with online patient services they can receive their results online (only available for 12 years and younger and 18 years and older)] Patient would like a call back to see if appointment is necessary. documented in this encounter Plan of Treatment Upcoming Encounters Date Type Specialty Care Team Description 05/29/2022 Appointment Orthopedics Kathi Fry PA-C [address] [place] [address] (Wo rk) documented as of this encounter Visit Diagnoses Not on filedocumented in this encounter Care Teams Peoplesoft Hcm Developer Relationship Specialty Start Date End Date PcpSkinny MD PCP - General 07/14/18 06/14/20 [place] [address] documented as of this encounter
--- OUTSIDE RECORDS SUMMARY | 2022-05-14 09:05 | XMS_ITS | Encounter Summary ---
:1950 Author Organization [facility] Address [address] [place] [address] Care Team Providers Name Role Phone Pcp, Pt Declines Primary Care Provider Reason for Visit Reason Comments ORTHOTICS Encounter Details Date Type Department Care Team Description 03/20/2020 Telephone [facility] Aba Lemus APRN, EPIC MANAGER ORTHOTICS [address] [place] [address] [address] [place] [address] [place] [address] [phone] (Wo rk) Social History Tobacco Use Types [...] documented as of this encounter Nursing Notes Aba Lemus APRN, FLAKITA - 03/20/2020 9:52 AM CDT Merrick has had an appointment with Dr. Wilkes in the past and was to get new orthotics yearly for pes planus. He has yet to since what seems to be around 2012. I am placing a new order for him and for convenience he plans to go to [facility] for new orthotics for diagnosis of pes planus bilateral. documented in this encounter Plan of Treatment Upcoming Encounters Date Type Specialty Care Team Description 05/29/2022 Appointment Orthopedics Kathi Fry PA-C [address] [place], [place] [address] (Wo rk) documented as of this encounter Visit Diagnoses Not on filedocumented in this encounter Care Teams Air Pollution Inspector Relationship Specialty Start Date End Date Pcp, Skinny Rosario MD PCP - General 07/14/18 06/14/20 [place] [address] documented as of this encounter
--- OUTSIDE RECORDS SUMMARY | 2022-05-14 09:05 | XMS_ITS | Encounter Summary ---
:1950 Author Organization [employer] Address [address] [place] [address] Care Team Providers Name Role Phone Pcp, Pt Declines Primary Care Provider Reason for Referral (Routine) - Closed Specialty Diagnoses / Procedures Referred By Contact Refer red To Contact Diagnoses Primary osteoarthritis of both knees aCri Estevez MD Procedures Dexamethasone Sodium Phos (per 1 mg) [address] [facility] [place] [address] Referral ID Status Reason Start Date Expiration Date Visits Requ ested Visits Authorized [id number] Closed 03/15/2020 06/14/2021 1 1 Reason for Visit Reason Comments Knee Pain or Injury Encounter Details Date Type Department Care Team Description 03/15/2020 Office Visit [facility] Cari Cruz y osteoarthritis of both knees (Primary Dx); BAKARI Vasquez MD Complex tear of medial meniscus of knee as current injury, unspecified laterality, subsequent encounter; [address] [facility] Complex tear of lateral meniscus of righ t knee as current injury, [place] [address] [phone] Social History Tobacco Use Types Packs/Day Years [...] - Inhaled Oxygen Concentration - - Weight 129.3 kg (285 lb) 03/15/2020 1:41 PM CDT Height 200.7 cm (6' 7) 03/15/2020 1:41 PM CDT Body Mass Index 32.11 03/15/2020 1:41 PM CDT documented in this encounter Patient Instructions Patient InstructionsPhiLaila driver ATC - 03/15/2020 1:[address] Cari Estevez MD Primary Care Sports Medicine Medical Orthopaedics (Non-Surgical) Medication Requests: Prescriptions are not filled on weekends or on weekdays after 3:00 PM Bilateral knee osteoarthritis Lateral and patellofemoral compartments Bilateral valgus deformity Surgical consult Medication sent to pharmacy Minimal NSAID use Weight loss if possible Further treamtent per surgeon The bilateral knee was injected with Dexamethasone sodium-1 and ropivacaine. Avoid Strenuous Activity for the remainder of the day and avoid activities that cause pain for one to two weeks following the injection. Signs and Symptoms to watch for: If you have any redness, warmth or increasing pain at the site of the injection or develop a fever, please call [phone] Thank you for enrolling in [employer] [facility]. Please follow the instructions below to securely access your online medical record. [employer] [facility] allows you to send messages to your doctor, view your test results, schedule appointments, and more. How Do I Sign Up? To get started, all you have to do is follow a few simple steps: 1. Visit [email or web address] 2. Enter the activation code, as shown below; your last name; and your date of Your Activation Code: [email or web address] Expires: 04/14/2020 1:41 PM 3. Create your username and password Additional Information If you have questions about creating your account, the Website Support team is here to help between 8 am and 5 pm Friday through Friday. They are available by clicking the Contact Us link on the website or by phone at [phone]. documented in this encounter Progress Notes Cari Estevez MD - 03/15/2020 1:40 PM CDT Merrick Petty [id number] 1950 [facility] Consultation 03/15/2020 Chief Complaint: Bilateral Knee Pain History of Present Illness: Merrick Petty is a 69 y.o. male who reports bilateral knee pain that began 2 years ago. No history of trauma, injury, or surgery. Localizes pain at posterior asepct. Has occasional swelling and states the knee feels unstable. Denies numbness, tingling, swelling, locking, catching, or giving way. Pain with transitioning from sit to stand, walking, stairs, and golfing. Has buckling. Range of motion is not restricted. Sleep is not disrupted due to pain. Is not limping due to pain. Has treated with Aleve and Tylenol -- takes 2 tabs 4x per week. Has been treated by Dr. Teresa in the past with bilateralcorticosteroid injections, last on 12/01/19. These provided relief for a month and a half, but less than injections on 08/31/19. X-rays demonstrated bilateral knee osteoarthritis, severe (lateral right greater than left) and mild patellofemoral (left greater than right). Has been evaluated by Kathi Fry for lumbar spondylosis with multilevel disc bulges and mild neural foraminal narrowing. Also has had facet joint injections. MRI of left knee from 07/14/18 showed a large partial displaced medial meniscus tear, mildly displaced meniscal fragment, tricompartmental degenerative changes, moderate lateral meniscus tear. MRI of right knee from 07/14/18 showed flap tear of posterior horn and body of lateral meniscus, complex lateral meniscus tear, and significant degenerative changes lateral more than patellofemoral. Inquires today about indication for total knee arthroplasty and knee injections. Allergies: No known drug allergies Current Medications: Acetaminophen Acyclovir Diclofenac Doxycycline Hydrochlorothiazide Levothyroxine Lisinopril Rivaroxaban Sotalol Past Medical History: Atrial fibrillation Hypertension Hypothyroid ICD pocket hematoma Past Surgical History: Pacemaker Family History: Heart disease - mother Social History: Retired. . No tobacco use. No illicit drug use. Occasional alcohol consumption. Exercises weekly with walking. Wears seatbelt always. Review of Systems: Positive for hypertension, defibrillator, thyroid disease, and memory loss. See above, otherwise complete 15-point review of systems is negative. Physical Exam: Ht 2.007 m (6' 7) Wt 129.3 kg (285 lb) BMI 32.11 kg/m?? GENERAL: Alert male. No apparent distress. MUSCULOSKELETAL:Right Knee - No visible deformity or joint effusion present. Small palpable Schmitz's cyst. Hip flexion, knee flexion and extension 5/5. Flexion to 120 degrees. Extends to 0 degrees. No pain over patellar or quad tendon nor at patellar facets. No pain with patellar compression. Tender at lateral joint line. Nontender at lateral joint line. Collaterals stable at 0 and 30 degrees of flexion. Significant valgus deformity. Left Knee: No joint effusion present. Hip flexion, knee flexion and extension 5/5. Flexion to 120 degrees. Lacks 5 degrees of extension. No pain over patellar or quad tendon nor at patellar facets. No pain with patellar compression. Nontender at medial and lateral joint line. Collaterals stable at 0 and 30 degrees of flexion. Significant valgus deformity. SKIN: No ecchymosis or erythema. NEUROVASCULAR: Non-antalgic gait. PT pulse intact. DTRs within normal limits, patella. Imaging: Radiographs of the bilateral knee - 3 views (12/01/19): A bilateral knee series shows narrowing of the lateral compartment of the right knee greater than the left. ??There has been interim change of decreasing joint space since his last set of pictures fromMay of 2018. ??There is no evidence for acute change or significant calcific changes in the soft tissue. ??The lateral view of the left knee shows a narrowness in the femoral tibial articulation with a small superior and inferior pole osteophyte of the patella. ??His right knee shows what might be a slight decrease in the retropatellar position along with mild inferior and superior pole osteophytes. ??His bilateral patellofemoral view shows narrowing of the lateral half of the patellofemoral ron int, greater on the left side than the right. ??He has some peripheral osteophytes, largest at the lateral side of the trochlea bilaterally. Report per radiology. Imaging studies above were independently reviewed and discussed with patient. Assessment: 1. Bilateral knee osteoarthritis, severe lateral right greater than left and mild patellofemoral left greater than right 2. Bilateral valgus deformity. 3. Bilateral knee medial meniscal tears 4. Right complex lateral meniscal tear Discussed treatment options with patient. Merrick is interested in pursuing joint replacement, but wishes to wait until the fall 2019. Repeating corticosteroid injection nows is reasonable, but he understands that he will have to wait at least 3 months after corticosteroid injection to undergo surgery. Explained the risk of NSAID use given his cardiovascular history. Will try and limit. Will defer on lateral airport control operator braces for now. Procedure: Knee Corticosteroid Injection: Risks and benefits of a corticosteroid injection were reviewed with patient. Anteromedial aspect of bilateral knees were prepped in a sterile fashion and 3 mL of ropivacaine and 2 mL Dexamethasone (4 mg) were injected into anteromedial joint spaces. Patient tolerated procedures well. Plan: 1. Consult visit with knee surgeon to discuss bilateral total knee arthroplasties 2. Prescription provided for Voltaren gel 3. Minimize NSAID use. Augment with Tylenol 4. Weight loss if possible 5. Further treatment per surgeon Patient reports all his questions were answered. Total time: 30 minutes Counseling time: 20 minutes Referring Provider: PATIENT SELF REFERRAL, [place] [address] Primary Care Provider: [facility] [address] Scribe Disclosure: Scribed for Cari Estevez MD by Johanna Grey Tubing Mill Setter. I, Cari Estevez MD, have personally reviewed and agree with the information entered by the scribe. documented in this encounter Plan of Treatment Upcoming Encounters Date Type Specialty Care Team Description 05/29/2022 Appointment Orthopedics Kathi Fry, SHANIC [address] [place] [address] (Wo rk) documented as of this encounter Visit Diagnoses Diagnosis Primary osteoarthritis of both knees - P rimary Primary localized osteoarthrosis, lower leg Complex tear of medial meniscus of knee as current injury, unspecified laterality, subsequent encounter Complex tear of lateral meniscus of righ t knee as current injury, subsequent encounter documented in this encounter Care Teams Check Inspector Relationship Specialty Start Date End Date Pcp, Skinny Rosario MD PCP - General 07/14/18 06/14/20 [place] [address] documented as of this encounter
--- OUTSIDE RECORDS SUMMARY | 2022-05-14 09:05 | XMS_ITS | Encounter Summary ---
:1950 Author Organization [facility] Address [address] [place] [address] Care Team Providers Name Role Phone Needs [...] Date Type Department Care Team Description 06/15/2020 Surgery Yaz[employer] Operating Steubs, Sanjay Hanna MD TOTAL KNEE JOINT Room [address] REPLACEMENT [address] [facility]. [place], [place] [address] [place] [address] [phone] Social History Tobacco Use Types Packs/Day Years [...] Sign Reading Time Taken Comments Blood Pressure 153/92 06/15/2020 8:38 AM CDT Pulse 63 06/15/2020 8:38 AM CDT Temperature 36.1 ??C (97 ??F) 06/15/2020 8:38 AM CDT Respiratory Rate 18 06/15/2020 8:38 AM CDT Oxygen Saturation 95% 06/15/2020 8:38 AM CDT Inhaled Oxygen Concentration - - [...] Your Medications These medications were sent to [facility] [address] [place] [id number] ?? oxyCODONE 5 MG immediate release tablet [...] must be accompanied by a responsible adult experienced truck driver at the time you are discharged. [...] spirometer use 3) Practice good oral care. [place] your teeth and use mouthwash twice daily. [...] weekends, holidays, or after 4:30 PM on weekdays. Please be aware that some insurance companies [...] Comments: Call [facility] Triage at [phone] Not all post-operative infections can be prevented, but early detection and proper treatment can prevent major catastrophes. Do not start antibiotics for incision infections without contacting the orthopedic surgeon first. IF in doubt, call the orthopedic surgeon. MARÍA ELENA: For non-urgent orthopedic questions please contact your surgeon's nurse triage line Friday - Friday Order Comments: Call [facility] Triage at [phone] Friday-Friday 8:00 AM to 5:00 PM. No follow-up provider specified. Total time spent on discharge on day of discharge 30 minutes. For full discharge orders and instructions, please see the after visit summary for this hospitalization. Nba Paulino PA-C 12:34 PM 06/17/2020 documented in this encounter Discharge Instructions Discharge Instr - AnticoagulationDanay Fall RP - 06/15/2020 2:37 PM CDT ANTICOAGULATION DISCHARGE [...] any questions regarding your therapy. Danay Fall, Addi., [facility] 11:24 AM 06/17/2020 documented in this [...] including possible side effects. Prescriptions filled by [facility] pharmacy. Belongings checklist reviewed with patient [...] history, with cardiology care being received through [facility]. Objective: PHYSICAL EXAM: BP 102/56 Pulse 64 [...] by orthopedics nicely Zion Horton MD Internal [facility] p: [phone] Erendira Packer, OTR/L - 06/17/2020 8:11 AM CDT Occupational Therapy [...] ~ 50 feet with FWW Treatment Location: [facility] Frequency: daily General Current living situation: [...] -LE dressing: Re-educated Patient on use of personal injury paralegal for LE dressing and to dress affected leg first.Patient in agreement and stated he has a personal injury paralegal at home and feels he does not [...] above. Donovan Sanchez MD Angelica Jesus APRN, CHEMISTRY TUTOR - 06/16/2020 2:46 PM CDT ORTHO PROGRESS [...] therapy clearance, likely tomorrow Angelica Jesus APRN, CHEMISTRY TUTOR 2:46 PM 06/16/2020 Patient switched from extended [...] sleeping. Communicated plan to schedule therapy isauro sadler. Patient nodded head and in agreement. Eleanor Pearl, PT 1:51 PM 06/16/2020 Eleanor Pearl, PT - 06/16/2020 7:58 AM CDT Physical Therapy Inpatient Daily Progress Note Patient's diagnosis: R) TKA on 06/15/2020 secondary to degenerative arthrosis GENERAL INFORMATION Mood: pleasant Cooperation: full Treatment Location: [facility] Special Equipment: None Precautions: falls risk Patient [...] 27 Total treatment time: 27 Therapist: Eleanor Pearl PT 9:02 AM 06/16/2020 Erendira Packer OTR/L - 06/16/2020 7:40 AM CDT Occupational [...] ~ 5 feet with FWW Treatment Location: [facility] Frequency: daily General Current living situation: Patient [...] with ADL/IADLs in 3 days. MET ?? intermediate project manager goal: Patient will maximize independence and [...] knee replacement 06/15/[address] Murrieta at [facility]. Order: Eval and Treat: Total joint protocol Twice daily For Gait training: Straight Leg Raises, active abduction to operative leg. Isometric, AAROM, AROM to operative leg. Strengthening exercises to other extremities as needed. SUBJECTIVE Patient reports: It helps to move positions Mood: alert, quiet - did not say much Pain: Location: right knee 8 Support System: - present for session Prior [...] no LOB noted during session Standardized test: -[facility] 5 Items (out of 20 points): Raw Score: 15, Standardized Score: 38.88, G Code: CK, 44.61% impaired Suggested AM-[facility] Basic Mobility Stage: 34-51 - LIMITED MOVING [...] Plans to go to OP PT in [facility] Plan for Next Treatment: ambulation with FWW, measure ROM, TKA exercises, transfers, stairs when appropriate NOTE: The clinician's signature certifies medical necessity for the treatment plan above. Lianna Cano RN - 06/15/2020 3:57 PM CDT POST-OP O: Patient will have a stable post-op period. D: Pt arrived to room [id number] -[id number], at 14:20. Patient is alert and oriented [...] to room. Will continue to monitor. Erendira Packer, OTR/L - 06/15/2020 3:32 PM CDT Occupational Therapy Occupational Therapy Orthopedic Hip/Knee ADL Evaluation Date of admit: 06/15/2020 7:52 AM History of current medical diagnosis: TOTAL KNEE JOINT REPLACEMENT RIGHT Past medical history: Past Medical History: Diagnosis Date ??? Atrial fibrillation (HRC) ??? Hypertension ??? Hypothyroid (HRC) 12/14/2018 ??? ICD (implantable cardioverter defibrillator) pocket hematoma order: Eval and Treat: Total Joint Protocol [...] preventions with ADL/IADLs in 3 days. ?? shelter goal: Patient will maximize independence [...] meal prep, home making, and driving. Signature: Erendira Packer, OTR/L 4:06 PM 06/15/2020 NOTE: The clinician's signature [...] 12:00 PM CDT NAME: RAIN PETTY MR#: [id number] CSN: [id number] AUTHENTICATING CLINICIAN: Sanjay Murrieta MD CONFIRM #: [id number] LOC: 1 OPERATIVE REPORT DATE OF OPERATION: 06/15/2020 : 1950 SURGEON: Sanjay Murrieta MD PREOPERATIVE DIAGNOSIS: Advanced degenerative arthrosis, right knee. POSTOPERATIVE DIAGNOSIS: Advanced degenerative arthrosis, right knee. PROCEDURE: Cemented right total knee arthroplasty using [employer] components. CONTRACT PROJECT MANAGER: KRANTHI Cheek HISTORY: The patient is a [...] the arthrotomy incision was closed with interrupted pdjslx-ad-vcffc 0 Vicryl sutures. Subcutaneous closure with 0 Vicryl was followed by staple approximation of the skin edges. A sterile bulky dressing was applied. The tourniquet and legholder were removed, and he was transferred to thePAR cart and taken to PAR in satisfactory condition. There were no intraoperative complications noted, and he seemed to be doing well in the PAR. ALF:[facility] C: CONFIRM #: [id number] documented in this encounter Consult Notes Keri [...] Description 05/29/2022 Appointment Orthopedics Kathi Fry PA-C [address] [place] [address] (Wo rk) Scheduled Referrals Name Type Priority [...] Signature Hemoglobin 12.3 (L) 13.5 - 06/17/2020 [facility] 17.5 g/dL 8:16 AM CDT LABORATORY Specimen Anatomical Collection Method / Collection Time Recei salud Time (Source) Location / Volume Laterality Blood Venipuncture / 06/17/2020 8:07 06/17/2020 8:13 Unknown AM CDT AM CDT Donovan Sanchez MD LAB_1 Performing Organization Address City/State/ZIP Code Phon e Number [facility] [address] [place] [address] (ABNORMAL) Hemoglobin (06/16/2020 3:47 PM CDT) athologist Signature Hemoglobin 12.1 (L) 13.5 - 06/16/2020 [facility] 17.5 g/dL 3:54 PM CDT LABORATORY Specimen Anatomical Collection Method / Collection Time Recei salud Time (Source) Location / Volume Laterality Blood Venipuncture / 06/16/2020 3:47 06/16/2020 3:51 Unknown PM CDT PM CDT Donovan Sanchez MD LAB_1 Performing Organization Address [facility]/ZIP Code Phon e Number [facility] [address] [place] [address] (ABNORMAL) Hemoglobin in AM POD #1 (06/16/2020 7:56 AM CDT) athologist Signature Hemoglobin 12.5 (L) 13.5 - 06/16/2020 [facility] 17.5 g/dL 8:06 AM CDT LABORATORY Specimen Anatomical Collection Method / Collection Time Recei salud Time (Source) Location / Volume Laterality Blood Venipuncture 06/16/2020 7:56 06/16/2020 8 :02 [facility] / Unknown AM CDT AM CDT Sanjay Murrieta MD LAB_1 Performing Organization Address [facility] Code Phon e Number [facility] [address] [place] [address] Creatinine / GFR (06/15/2020 3:07 PM CDT) athologist Signature Creatinine 0.76 0.73 - 06/15/2020 [facility] 1.18 mg/dL 4:32 PM CDT LABORATORY GFR, Estimated >60 >60 06/15/2020 [facility] mL/min/1.7 4:32 PM CDT LABORATORY 3m2 Specimen Anatomical Collection Method / Collection Time Recei salud Time (Source) Location / Volume Laterality Blood Venipuncture 06/15/2020 3:07 06/15/2020 3 :13 [place] / Unknown PM CDT PM CDT Sanjay Murrieta MD LAB_1 Performing Organization Address City/[facility]/ZIP Code Phon e Number [facility] [address] [place] [address] AST (06/15/2020 3:07 PM CDT) athologist Signature AST (SGOT) 18 10 - 40 U/L 06/15/2020 [facility] 4:32 PM CDT LABORATORY Specimen Anatomical Collection Method / Collection Time Recei salud Time (Source) Location / Volume Laterality Blood Venipuncture 06/15/2020 3:07 06/15/2020 3 :13 [place] / Unknown PM CDT PM CDT Sanjay Murrieta MD LAB_1 Performing Organization Address [facility] Phon e Number [facility] [address] [place] [address] (ABNORMAL) Albumin (06/15/2020 3:07 PM CDT) athologist Signature Albumin 3.4 (L) 3.5 - 5.0 06/15/2020 [facility] g/dL 4:32 PM CDT LABORATORY Specimen Anatomical Collection Method / Collection Time Recei salud Time (Source) Location / Volume Laterality Blood Venipuncture 06/15/2020 3:07 06/15/2020 3 :13 [place] / Unknown PM CDT PM CDT Sanjay Murrieta MD LAB_1 Performing Organization Address [facility] Phon e Number [facility] [address] [place] [address] INR/Protime (06/15/2020 3:07 PM CDT) athologist Signature Protime 13.3 11.8 - 14.6 06/15/2020 [facility] Seconds 3:29 PM CDT LABORATORY INR 1.0 0.9 - 1.1 06/15/2020 [facility] 3:29 PM CDT LABORATORY Specimen Anatomical Collection Method / Collection Time Recei salud Time (Source) Location / Volume Laterality Blood Venipuncture 06/15/2020 3:07 06/15/2020 3 :13 [place] / Unknown PM CDT PM CDT Narrative [facility] - 06/15/2020 3:29 P M CDT Therapeutic range determined by protocol established by anticoagulation provider. Sanjay Murrieta MD LAB_1 Performing Organization Address [facility] Phon e Number [facility] [address] [place] [address] XR Knee Rt 2 Views (06/15/2020 3:06 [...] Glucose, Whole 99 70 - 180 06/15/2020 [facility] Blood mg/dL 9:20 AM CDT LABORATORY Specimen Anatomical Collection Method Collection Time Receive d Time (Source) Location / / Volume Laterality Blood 06/15/2020 8:51 AM 0 9:20 CDT AM CDT Sanjay Murrieta MD LAB_1 Performing Organization Address City/State/ZIP Code Phon e Number [facility] [address] [place] [address] documented in this encounter Visit Diagnoses Diagnosis Status post total right knee replacement - Primary Idiopathic hypotension Hypotension, unspecified Primary cardiomyopathy (HRC) Other primary cardiomyopathies Osteoarthritis of right knee Osteoarthrosis, unspecified whether gene ralized or localized, lower leg Osteoarthritis of right knee, unspecifie d osteoarthritis type documented in this encounter Admitting Diagnoses Diagnosis Osteoarthritis of right knee Osteoarthrosis, unspecified whether gene ralized or localized, lower leg documented in this encounter Administered Medications Inactive Administered Medications - up to 3 most recent administrations Medication Order MAR Action Action Date Dose Rate Site acetaminophen (TYLENOL) tablet Given 06/17/2020 11:39 AM CDT 650 mg 650 mg 650 mg, Oral, QID, First dose on Faye 06/15/20 at 1600, Until Discontinued, Post-op Given 06/17/2020 7:52 AM CDT 650 mg Given 06/16/2020 7:41 PM CDT 650 mg pvsejpfhaov-lqisnqmfvyi-yxkroebin Given 06/15/2020 11:13 100 mL Right Knee 0.25%-1:742614-86ez 40 mL in 0.9% sodium AM CDT chloride 60 mL (surgery only) ONCE PRN, Starting on Faye 06/15/20 at 1113, Intra-op enoxaparin (LOVENOX) injection Given 06/17/2020 7:58 AM [...] by 3 in 30 minutes., Starting on Faye 06/15/20 at 1407, Until 06/17/20 at 1406, For 48 hours, May administer 1 hour after ORAL opioid administration if given for pain score escalation. Do NOT administer at the same time as ORAL opioids. HOLD if on ROUTER OPERATOR RADIAL., Post-op levothyroxine (SYNTHROID) tablet 200 mcg Given 06/17/2020 7:54 AM CDT 200 mcg 200 mcg, Oral, DAILY, First dose (after last modification) on Fri06/16/20 at 0800, Until Discontinued Given 06/16/2020 7:33 AM CDT 200 mcg magnesium hydroxide (MILK OF MAGNESIA) Given 06/17/2020 [...] 1440, Post-op ondansetron (ZOFRAN) injection 4 mg 4 mg, [...] without chewing., Post-op oxyCODONE (ROXICODONE) immediate release Given 06/17/2020 10:25 AM CDT 10 mg tablet 5-10 mg 5-10 mg, Oral, Q2H PRN, Other, Moderate Pain (pain score 5-7), Severe Pain (pain score 8-10), Starting on Faye 06/15/20 at 1407, Until 06/17/20 at 1440, Do NOT administer at the same time as IV opioids. May administer 1 hour after IV opioid administration. HOLD if on ROUTER OPERATOR RADIAL. Use of ORAL opioids is encouraged as patients anticipate discharge. (IV medications will be discontinued 48 hours post-op.) May give for anticipatory pain (ie prior to therapies, procedures) regardless of current pain score, Post-op Given 06/17/2020 7:53 AM CDT 5 mg Given 06/17/2020 5:23 AM CDT 10 mg povidone-iodine 10% in sodium Given 06/15/2020 11:12 AM CDT 520 mL Right Knee chloride 500 mL sterile irrigation (surgery only) ONCE PRN, Starting on Faye 06/15/20 at 1112, Intra-op rOPINIRole (REQUIP) tablet 1 mg Given 06/16/2020 [...] on Faye 06/15/20 at 1999, Until Discontinued, Give every day while on opioids (stimulant) starting day of surgery. Hold for loose stools., Post-op Given 06/15/2020 8:28 PM CDT 1 Tablet sodium chloride 0.9% injection 10-60 mL Given [...] Given 06/16/2020 2:20 AM CDT 10 mL sodium chloride for irrigation Given 06/15/2020 11:12 AM CDT 1,5 00 mL Right Knee 0.9 % ONCE PRN, Starting on Fri06/15/20 at 1112, Intra-op sotalol (BETAPACE) tablet 120 mg Given 06/17/2020 7:54 AM CDT 120 mg 120 mg, Oral, BID, First dose on Fri06/15/20 at 2000, Until Discontinued, OP SIG:TK 1 [...] if handling, single glove , Indications: Hypertension vancomycin (VANCOCIN) powder for Given 06/15/2020 11:12 AM CDT 5 00 mg Right Knee intra-op use ONCE PRN, Starting on Fri06/15/20 at 1112, Intra-op documented in this encounter Active and Recently Administered Medications Times are shown in CDT. Scheduled Medication Order 06/15/2020 06/16/2020 06/17/2020 0.9% sodium chloride bolus 500 mL (COMPLETED) 1111 (Started - Provider: David Alvarez RN)121 (Infused - Provider: David Alvarez RN) 500 mL, Intravenous, Administer over 1 H ours, ONCE, Fri06/16/20 at 1115, For 1 dose acetaminophen (TYLENOL) tablet 1,000 mg (COMPLETED) 06 01 (Given - Provider: Lisa Chavez RN) 1,000 mg, Oral, ONCE, Fri06/15/20 at 0830, For 1 dose, Give in P reop., Pre-op acetaminophen (TYLENOL) tablet 650 mg 1500 (Given - Pr ovider: Lianna Cano RN)2027 (Given - Provider: Anca Chung RN) 0732 (Given - Provider: David Alvarez RN)1111 (Given - Provider: David Alvarez RN)1552 (Given - Provider: David Alvarez RN)1941 (Given - Provider: Jono M Frye, RN) 0752 (Given - Provider: David marie RN)1139 (Given - Provider: David Alvarez RN) 650 mg, Oral, QID, First dose on Faye 06/15/20 at 1600, Post-op ceFAZolin (aka ANCEF) 2 g in dextrose 100 ml IVPB (COM PLETED) 1824 (Started - Provider: Flori Pang RN)1854 (Infused - Provider: Flori Pang RN) 0227 (Started - Provider: Anca Chung, KELSEA)0257 (Infused - Provider: Anca Chung, KELSEA) 2 g, Intravenous, Administer over 30 Min utes, Q8H (NON-STND), First dose on Faye 06/15/20 at 1830, For 2 doses, Post-op ceFAZolin (ANCEF) 3 g in sodium chloride 0.9 % 100 mL IVPB (COMPLETED) 1050 (Started - Provider: Levi Renee APRN, ASSEMBLER TRUCK TRAILER) 3 g, Intravenous, Administer over 30 Min utes, ONCE, Faye 06/15/20 at 0830, For 1 dose, Infuse within 60 minutes prior to incision; Re-dose 2 gram IV every 4 hours after initial dose until incision closed., Pre-op enoxaparin (LOVENOX) injection 30 mg 073 8 (Given - Provider: David Alvarez RN)1943 (Given - Provider: Jono Frye, KELSEA) 0758 (Given - Provider: David Alvarez RN) [...] Flori Pang RN)2031 (Given - Provider: Anca Chung, KELSEA) 0417 (Given - Provider: Anca Chung, KELSEA)0944 (Given - Provider: David Alvarez RN)1552 (Given - Provider: David Alvarez RN)2130 (Given - Provider: Jono Frye, RN) 0330 (Given - Provider: Jono Frye, RN)1016 (Given - Provider: David Alvarez RN) 15 mg, Intravenous, Q6H (NON-STND), Firs t dose on Faye 06/15/20 at 1530, For 48 hours, Do not give if CrCl <60 or history of GI bleed. Start at least 6 hours after celecoxib (CELEBREX) if given., Post-op levothyroxine (SYNTHROID) tablet 200 mcg 07 (Given - Provider: David Alvarez RN) 075 (Given - Provider: David marie, RN) 200 mcg, Oral, DAILY, First dose (after last modification) on Fri06/16/20 at 0800 lidocaine PF (XYLOCAINE) 1 % injection 0.1-0.3 mL (COM PLETED) 829 (Given - Provider: Lisa Chavez RN) 0.1-0.3 mL, Subcutaneous, ONCE, Faye 06/15 at [...] (COMPLETED) 829 ( Given - Provider: Lisa Chavez RN) 4 mg, Intravenous, ONCE, Faye 06/15/20 at 0830, For 1 dose, Give in Preop., Pre-op oxyCODONE (OXYCONTIN) controlled release tablet 10 mg (COMPLETED) 829 (Given - Provider: Lisa Chavez RN) 10 mg, Oral, ONCE, Faey 06/15/20 at 0830, For 1 dose, Give in Preo p., Pre-op pantoprazole (PROTONIX) tablet 40 mg (COMPLETED) 1744 (Given - Provider: Flori Pang RN) 0523 (Given - Provider: Bandar Frye RN) 40 mg, Oral, DAILY AT 0600, First dose o n Faye 06/15/20 at 1800, For 48 hours, Tablet should be swallowed whole. Best when taken before a meal, but may be taken with food., Post-op rOPINIRole (REQUIP) tablet 1 mg 2029 (Given - Provider : Anca Chung RN)2200 (Not Given - Provider: Anca Chung RN [...] in Comment Area) - Comment: IVF running) 0738 (Given - Provider: David marie, KELSEA)1946 (Given - Provider: Jono Frye RN) 075 (Given - Provider: David marie RN) 10-60 mL, Intravenous, BID, First dose o n Faye 06/15/20 at 2000, For an INT flush, flush with at [...] 120 mg 2027 (Given - Provider: Benji Chung, KELSEA) 0737 (Given - Provider: David Alvarez, KELSEA)1940 (Given - Provider: Jono Frye RN) 075 (Given - Provider: David marie RN) 120 mg, Oral, BID, First dose on Faye 06/15/20 at 1999, OP SIG:TK 1 T PO Q 12 H spironolactone (ALDACTONE) tablet 12.5 mg 07 (Given - Provider: David Alvarez RN) 075 (Not Given - Provider: David Beal RN [...] (Started - Provider: Levi Awan ala, APRN, JAREN)1242 (Bolus - Provider: Levi Renee APRN, JAREN) 1,000 mg, Intravenous, ONCE, Faye 06/15/20 at 0830, For 1 dose, Maximum administration rate is 100 mg/minute. To be given in OR by ASSEMBLER TRUCK TRAILER prior to incision. Re-dose 1000 mg IV during wound closure., Pre-op Continuous Medication Order 06/15/2020 06/16/2020 06/17/2020 lactated ringers infusion (CANCELED) 0900 (Started - P rovider: Lisa Chavez RN)1249 (Started - Provider: Levi Renee APRN, ASSEMBLER TRUCK TRAILER) 25 mL/hr, Intravenous, at 25 mL/hr, CONT INUOUS, Starting Faye 06/15/20 at 0830, Administer on all preop surgery patients, ages 12 and older, unless specified differently in the Protocol for Preop Initiation of IV fluids Order Set., Pre-op sodium chloride 0.9% infusion (CANCELED) 1700 (Started - Provider: Flori Pang RN) 0227 (New Bag Started - Provider: Anca Chung RN)1534 (Stopped - Provider: David Alvarez RN) Intravenous, at 75 mL/hr, CONTINUOUS, St arting Faye 06/15/20 at 1430, Start after completion of bag currently infusing, Post-op PRN Medication Order 06/15/2020 06/16/2020 06/17/2020 bisacodyl (DULCOLAX) rectal suppository 10 mg 10 mg, Rectal, DAILY PRN, Other, Moderat e Constipation, Starting Faye 06/15/20 at 1407, Post-op veigtpxqxbx-esxumoavmqi-grxdndwba 0.25%- [id number] 40 mL in 0.9% sodium chloride 60 [...] time as ORAL opioids. HOLD if on ROUTER OPERATOR RADIAL., Post-op lidocaine (UROJET) 2 % prefilled syringe [...] Provider: Lianna Cano RN)1745 (Given - Provider: Folri Pang RN)202 (Given - Provider: Anca Chung RN) 0527 (Given - Provider: Anca Chung , KELSEA)0734 (Given - Provider: David Alvarez, RN - Comment: Anticipatory pain with therapy) 0019 (Given - Provider: Jono Frye, RN)0523 (Given - Provider: Jono Frye, RN)0753 (Given - Provider: David Alvarez, RN)1025 (Given - Provider: David Alvarez, RN) 5-10 mg, Oral, Q2H PRN, Other, Moderate Pain (pain score 5-7), Severe Pain (pain score 8-10), Starting Faye 06/15/20 at 1407, Do NOT administer at the same time as IV opioids. May administer 1 hour after IV opioid administration. HOLD if on ROUTER OPERATOR RADIAL . Use of ORAL opioids is encouraged as patients anticipate discharge. (IV medications will be discontinued 48 hours post-op.) May give for anticipatory pain (ie p rior to therapies, procedures) regardless of current pain score, Post-op povidone-iodine 10% in sodium chloride 5 00 mL sterile irrigation (surgery only) (CANCELED) 111 (Given - Provider: Sanjay Murrieta MD) ONCE [...]
Post-op documented in this encounter Care Teams Time Study Analyst Relationship Specialty Start Date End Date Needs Pcp, Assignment PCP - General 06/15/20 06/22/20 [place] [address] documented as of this encounter
--- OUTSIDE RECORDS SUMMARY | 2022-05-14 09:05 | XMS_ITS | Encounter Summary ---
:1950 Author Organization [employer] Address [address] [place] [address] Care Team Providers Name Role Phone Pcp, Pt Declines Primary Care Provider Reason for Visit Reason Comments QUESTIONS, GENERAL MRSA/MSSA swab Encounter Details Date Type Department Care Team Description 06/07/2020 Telephone [facility] Steubs, Sanjay Hanna MD QUESTIONS, GENERAL CENTER [address] [place] [address] (MRSA/MSSA swab) [address] [place], [place] [phone] (Wo rk) Social History Tobacco Use Types [...] documented as of this encounter Nursing Notes Theresa Levine RN - 06/09/2020 5:48 PM CDT Patient states that the MRSA came back negative and results forwarded onto [facility]. Theresa Levine RN - 06/08/2020 9:42 AM CDT Spoke with the patient and he is getting the test done today and he was told by the doctor that the results would be back tomorrow. Mentioned that he should fax the results to [facility] and number given. Said I would call to check on results tomorrow as note says he should be starting decolonization on Friday. Sonia Hicks RN - 06/07/2020 3:57 PM CDT Ok to advise. LVM to get MRSA/MSSA swab done today or tomorrow if he hasn't already. He would need to start treatment on Friday06/10/2020 to get the treatment in 5 days before surgery on 06/15/2020. Number given tocall back. documented in this encounter Plan of Treatment Upcoming Encounters Date Type Specialty Care Team Description 05/29/2022 Appointment Orthopedics Kathi Fry PA-C [address] [place] [address] (Wo rk) documented as of this encounter Visit Diagnoses Not on filedocumented in this encounter Care Teams Accounts Receivable Supervisor Relationship Specialty Start Date End Date Skinny Peralta MD PCP - General 07/14/18 06/14/20 [place] [address] documented as of this encounter
--- OUTSIDE RECORDS SUMMARY | 2022-05-14 09:06 | XMS_ITS | Encounter Summary ---
:1950 Author Organization [employer] Address [address], [place] [address] Care Team Providers Name Role Phone PcpSkinny MD Primary Care Provider Reason for Visit Reason Comments Pre-procedure Call Encounter Details Date Type Department Care Team Description 02/02/2020 Telephone [facility] Mary Nickerson, Pre-procedure Call [address] [place], [place] [address] Social History Tobacco Use Types [...] 05/29/2022 Appointment Orthopedics Kathi Fry, ROSY [address] [place] [address] (Wo rk) documented as of this encounter Visit Diagnoses Not on filedocumented in this encounter Care Teams Business Services Vice President Relationship Specialty Start Date End Date Pcp Skinny Rosario MD PCP - General 07/14/18 06/14/20 [place], [place] [id number] documented as of this encounter
--- OUTSIDE RECORDS SUMMARY | 2022-05-14 09:06 | XMS_ITS | Encounter Summary ---
:1950 Author Organization [email or web address] Address [address] [place] [address] Care Team Providers Name Role Phone Pcp, Pt Declines MD Primary Care Provider Reason for Visit Reason Comments QUESTIONS, GENERAL Encounter Details Date Type Department Care Team Description 06/16/2018 Telephone [facility] Sanjay Barahona PA-C QUESTIONS, GENERAL [address] [facility] [address] [place] [address] [place] [address] [place] [address] [phone] (Wo rk) Social History Tobacco Use Types Packs/Day Years Used Date Smoking Tobacco: Never Assessed Food Insecurity Answer Date Recorded Within the [...] documented as of this encounter Nursing Notes Danielle Alvarez - 06/16/2018 8:53 AM CDT Patient would like a call back. He did not give a reason. documented in this encounter Plan of Treatment Upcoming Encounters Date Type Specialty Care Team Description 05/29/2022 Appointment Orthopedics Kathi Fry PA-C [address] [place] [address] (Wo rk) documented as of this encounter Visit Diagnoses Not on filedocumented in this encounter Care Teams Solid Plasterer Relationship Specialty Start Date End Date PcpSkinny MD PCP - General 07/14/18 06/14/20 [facility] [place] [address] documented as of this encounter
--- OUTSIDE RECORDS SUMMARY | 2022-05-14 09:06 | XMS_ITS | Encounter Summary ---
:1950 Author Organization [facility] Address [address] [place] [address] Care Team Providers Name Role Phone Pcp, Pt Declines Primary Care Provider Reason for Visit Reason Comments MRI Results lumbar Encounter Details Date Type Department Care Team Description 12/30/2018 Office Visit [facility] Kathi Fry Lumba r spondylosis CENTER ROSY (Primary Dx) [address] [facility] [address] [place] [address] Naselle MD [address] [place], [place] [phone] (Wo rk) Social History Tobacco Use Types Packs/Day Years Used Date Smoking Tobacco: Never Smokeless Tobacco: Never Food Insecurity Answer Date Recorded Within the [...] as of this encounter Patient Instructions Patient InstructionsScKathi magana PA-C - 12/30/2018 9:30 AM CDT Kathi Fry PA-C Orthopaedic Spine Geothermal Plant Manager: Maxine Fatima Please contact Bela for all administrative questions at [phone] Please contact the Spine Nurse for all medical related questions at [phone] Office Hours: Friday, Friday, Friday Medication Requests: Prescriptions are not filled on Weekends or on Week after 3:00PM For all medication refills: Request a refill using [employer] or contact your Pharmacy Please determine coverage with your insurance provider before scheduling any procedures or testing. Dear Merrick, The MRI looks pretty darn good. You dont have spinal stenosis, or any large disc herniations. You dohave disc degeneration throughout the lumbar spine, and subtle disc bulges. You also have FACET arthritis. If the back pain with sitting too long, standing too long, transitioning sitting to standing or laying to sitting continues... We can always repeat the facet injections, and consider following with a Radiofrequency ablation You can always call my field staff to schedule those. documented in this encounter Progress Notes Kathi Fry PA-C - 12/30/2018 9:30 AM CDT Merrick Petty [id number] 1950 [facility] Follow-Up 12/30/2018 History of Present Illness: Merrick Petty is a 68 y.o. male who presents for follow-up regarding low back pain. I last evaluatedthe patient on 12/14/18 at which time they described bilateral leg pain for 2-3 months. Pain was localized to the posterior thigh bilaterally, and radiating down the back of the knee to the posterior calves. Concern at that time was for central canal stenosis and therefore an MRI of the lumbar spine was ordered. The patient presents today to discuss results and further treatment options. Please see the MRI results below. Symptoms today have improved. He underwent an aspiration and corticosteroid injection in both his knees, which helped reduce his back pain. He notes his swelling and radicular painhave decreased. Denies any weakness. Physical Exam: Deferred Imaging: MR of the lumbar spine - (12/16/18): 1. Small right paracentral disc protrusion effaces the ventral thecal sac at the L3-L4 level. 2. Mild disc bulges are present at the L1-L2, L2-L3, L4-L5, and L5-S1 levels as detailed above. 3. [id number] right neural foraminal stenosis at the L4-L5 level. 4. Mild narrowing of the proximal L3-L4 and right L5-S1 neural foramen. Report per radiology. I ordered and independently reviewed the imaging study above; the results were discussed with the patient. Diagnostic Impression: 1. Lumbar spondylosis Plan: The risks and benefits of the different available treatment options were discussed with the patient today. We reviewed the results of the MR imaging. After a discussion, the patient has elected to proceed with conservative management, including at home exercises for core and back strength. If his pain persists, he may call to schedule bilateral facet epidural injections. Follow-up as needed. TT: [address]: 10 minutes discussing above Scribe Disclosure: I, Cornell Lees, am serving as a scribe to document services personally performed by Kathi Fry PA-C at this visit, based upon the provider's statements to me. All documentation has been reviewed by the aforementioned provider prior to being entered into the official medical record. Portions of this medical record were completed by a scribe. UPON MY REVIEW AND AUTHENTICATION BY ELECTRONIC SIGNATURE, this confirms (a) I performed the applicable clinical services, and (b) the recordis accurate. Kathi Fry PA-C documented in this encounter Plan of Treatment Upcoming Encounters Date Type Specialty Care Team Description 05/29/2022 Appointment Orthopedics Kathi Fry PA-C [address] [place] [address] (Wo rk) documented as of this encounter Visit Diagnoses Diagnosis Lumbar spondylosis (HRC) - Primary Lumbosacral spondylosis without myelopat hy documented in this encounter Care Teams Bacteriologist Industrial Relationship Specialty Start Date End Date Pcp, Skinny Rosario MD PCP - General 07/14/18 06/14/20 [place], [place] [address] documented as of this encounter
--- OUTSIDE RECORDS SUMMARY | 2022-05-14 09:06 | XMS_ITS | Encounter Summary ---
:1950 Author Organization [employer] Address [address] [place] [address] Care Team Providers Name Role Phone Pcp, Pt Declines Primary Care Provider Reason for Referral Procedure/Equipment (Routine) - Incomplete Specialty Diagnoses / Procedures Referred By Contact Refer red To Contact Diagnoses 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) Kathi Fry PA-C Procedures FL C Arm [address] [facility] [place], [place] [address] Referral ID Status Reason Start Date Expiration Date Visits V isits Requested Authorized [id number] Incomplete 12/08/2019 03/08/2021 1 1 Encounter Details Date Type Department Care Team Description 12/08/2019 Notes/Orders [facility] Kathi Fry Spond ylosis of lumbar CENTER [facility] region without [address] [facility] [address] [facility] myelopathy or [place], [place] [address] [place], [place] radiculopathy (Primary [phone] Dx) Social History Tobacco Use Types Packs/Day Years [...] 05/29/2022 Appointment Orthopedics Kathi Fry PA-C [address] [place] [address] (Wo rk) documented as of this encounter Results FL C Arm 20 Pain Management (02/07/2020 12:47 PM CDT) Anatomical Region Laterality Modality Radiographic Imaging Specimen (Source) Anatomical Location Collection Method / Collectio n Time Received Time / Laterality Volume Narrative 02/07/2020 12:54 PM CDT Images obtained during surgical procedure. Kathi Fyr PA-C RAD FL documented in this encounter Visit Diagnoses Diagnosis Spondylosis of lumbar region without mye lopathy or radiculopathy (HRC) - Primary Lumbosacral spondylosis without myelopat hy Spondylosis of lumbar region without mye lopathy or radiculopathy (HRC) Lumbosacral spondylosis without myelopat hy documented in this encounter Care Teams Cable Weaver Relationship Specialty Start Date End Date Pcp, Skinny Rosario MD PCP - General 07/14/18 06/14/20 [place] [address] documented as of this encounter
--- OUTSIDE RECORDS SUMMARY | 2022-05-14 09:06 | XMS_ITS | Encounter Summary ---
:1950 Author Organization [employer] Address [address] [place] [address] Care Team Providers Name Role Phone Pcp, Pt Declines Primary Care Provider Reason for Visit Procedure/Equipment (Routine) - Incomplete Specialty Diagnoses / Procedures Referred By Contact Refer red To Contact Diagnoses Lumbar spondylosis (HRC) Kathi Fry PA-C Procedures XR Lumbar Spine AP/Lat Views [address] [facility] [place], [place] [address] Referral ID Status Reason Start Date Expiration Date Visits V isits Requested Authorized [id number] Incomplete 12/14/2018 03/14/2020 1 1 Encounter Details Date Type Department Care Team Description 12/14/2018 Ancillary [facility] Kathi Fry, Low back pain, Procedure [address] [facility] PA-C unspecified back Drive [address] [facility] pain laterality, [place] [address] chronicity, with [phone] sciatica presen ce (Work) unspecified ([facility]) Social History Tobacco Use Types Packs/Day Years [...] 05/29/2022 Appointment Orthopedics Kathi Fry PA-C [address] [place] [address] (Wo rk) documented as of this encounter Procedures Procedure Name Priority Date/Time Associated Diagnosis Comme nts XR LUMBAR SPINE Routine 12/14/2018 9:56 AM Low back pain, Resu lts for this AP/LAT VIEWS CDT unspecified back procedure a re in pain laterality, the results unspecified section. chronicity, with sciatica presence unspecified (HRC) documented in this encounter Results XR Lumbar Spine AP/Lat Views (12/14/2018 9:56 AM CDT) Anatomical Region Laterality Modality Spine, L-Spine Digital Radiography Specimen (Source) Anatomical Collection Method Collection Time Re ceived Time Location / / Volume Laterality 12/14/2018 9:48 AM CDT Narrative 12/14/2018 10:35 AM CDT COMPARISON: ??None. FINDINGS: ??5 lumbar type vertebral bodi es. No evidence of acute fractures. Multilevel disc space narrowing and degenerative endplate changes in the lumbar spine. ??Moderate and severe facet joint arthr opathy in the mid and lower lumbar spine . Atherosclerotic calcifications in the aorta. Mild rightward curvature of the lumbar spine. Procedure Note Ollie Wilson MD - 12/14/2018For matting of this note might be different from the original. COMPARISON: None. FINDINGS: 5 lumbar type vertebral bodies . No evidence of acute fractures. Multilevel disc space narrowing and degenerative endplate changes in the lumbar spine. Moderate and severe facet joint arthropathy in the mid and lower lumbar spine. Atherosclerotic calc ifications in the aorta. Mild rightward curvature of the lumbar spine. Kathi Fry PA-C RAD GD documented in this encounter Visit Diagnoses Diagnosis Low back pain, unspecified back pain lat erality, unspecified chronicity, with sciatica presence unspecified (HRC) documented in this encounter Care Teams Manager Athletics Relationship Specialty Start Date End Date Pcp, Skinny Rosario MD PCP - General 07/14/18 06/14/20 [place] [address] documented as of this encounter
--- OUTSIDE RECORDS SUMMARY | 2022-05-14 09:06 | XMS_ITS | Encounter Summary ---
:1950 Author Organization [facility] Address [address] [place] [address] Care Team Providers Name Role Phone Unavailable Primary Care Provider Unavailable Reason for Visit Procedure/Equipment (Routine) - Incomplete Specialty Diagnoses / Procedures Referred By Contact Refer red To Contact Diagnoses Right knee pain, unspecified chronicity Sanjay Barahona PA-C Procedures XR Knee Rt [address] [place] [address] [facility] [place] [facility] [place] [address] Referral ID Status Reason Start Date Expiration Date Visits V isits Requested Authorized [id number] Incomplete 06/15/2018 09/14/2019 1 1 Encounter Details Date Type Department Care Team Description 06/15/2018 Imaging [facility] Sanjay Barahona PA-C Right knee pain, [address] [facility] [address] [facility] unspecified chronicity [place], [place] [address] [place] [address] [phone] (Wo rk) Social History Tobacco Use Types [...] 05/29/2022 Appointment Orthopedics Kathi Fry PA-C [address] [place] [address] (Wo rk) documented as of this encounter Procedures Procedure Name Priority Date/Time Associated Diagnosis Comme nts XR KNEE LT 1-2 VIEWS Routine 06/15/2018 8:43 AM Right knee kosta n, Results for this COMPARISON CDT unspecified procedure are i n chronicity the results section. XR KNEE RT 3 VIEWS Routine 06/15/2018 8:43 AM Right knee pain, Results for this CDT unspecified procedure are i n chronicity the results section. documented in this encounter Results XR Knee Lt 1-2 Views Comparison (06/15/2018 8:43 AM CDT) Anatomical Region Laterality Modality Lower Extremity, Knee Digital Radiograph y Specimen (Source) Anatomical Collection Method Collection Time Re ceived Time Location / / Volume Laterality 06/15/2018 8:38 AM CDT Narrative 06/15/2018 9:27 AM CDT COMPARISON: ??None. FINDINGS: Multiple views of both knees o btained. There is no fracture in either knee. There is bilateral chondrocalcinosis. There is mild bilateral tricompartmental joint space narrowing and spurring. N o fracture identified. No significant ri ght-sided effusion. Procedure Note Luc Serrano MD - 06/15/2018Format ting of this note might be different from the original. COMPARISON: None. FINDINGS: Multiple views of both knees o btained. There is no fracture in either knee. There is bilateral chondrocalcinosis. There is mild bilateral tricompartmental joint space narrowing and spurring. No fracture identified. No significant right-sided e ffusion. Sanjay Barahona PA-C RAD GD XR Knee Rt 3 Views (06/15/2018 8:43 AM CDT) Anatomical Region Laterality Modality Lower Extremity, Knee Digital Radiograph y Specimen (Source) Anatomical Collection Method Collection Time Re ceived Time Location / / Volume Laterality 06/15/2018 8:38 AM CDT Narrative 06/15/2018 9:27 AM CDT COMPARISON: ??None. FINDINGS: Multiple views of both knees o btained. There is no fracture in either knee. There is bilateral chondrocalcinosis. There is mild bilateral tricompartmental joint space narrowing and spurring. N o fracture identified. No significant ri ght-sided effusion. Procedure Note Luc Serrano MD - 06/15/2018Format ting of this note might be different from the original. COMPARISON: None. FINDINGS: Multiple views of both knees o btained. There is no fracture in either knee. There is bilateral chondrocalcinosis. There is mild bilateral tricompartmental joint space narrowing and spurring. No fracture identified. No significant right-sided e ffusion. Sanjay STROUD GD documented in this encounter Visit Diagnoses Diagnosis Right knee pain, unspecified chronicity documented in this encounter
--- OUTSIDE RECORDS SUMMARY | 2022-05-14 09:06 | XMS_ITS | Encounter Summary ---
:1950 Author Organization [facility] Address [address], [place] [address] Care Team Providers Name Role Phone Pcp, Pt Declines MD Primary Care Provider Reason for Referral (Routine) - Closed Specialty Diagnoses / Procedures Referred By Contact Refer red To Contact Diagnoses Pain in both knees, unspecified chronicity Dyllan Teresa MD Procedures Triamcinolone Acet Inj Nos: (per 10 mg) [address] [facility] [address] [place] [address] Referral ID Status Reason Start Date Expiration Date Visits Requ ested Visits Authorized [id number] Closed 12/25/2018 03/25/2020 1 1 Reason for Visit Reason Comments Knee Pain or Injury bilateral Encounter Details Date Type Department Care Team Description 12/24/2018 Procedure Visit [facility] Dyllan Teresa, Knee Pain or Injury CENTER (bilateral) [address] [facility] [address] [facility] [place] [address] [phone] Social History Tobacco Use Types Packs/Day Years [...] as of this encounter Patient Instructions Patient InstructionsMonique Candelaria - 12/24/2018 11:[address] Dyllan Teresa MD Orthopaedic Surgeon Ambulatory Technologist: Monique Candelaria Please contact Monique for all administrative questions at [phone] Nurse: Magaly Connolly Please contact Magaly for any medical questions at [phone] Medication Requests: Prescriptions are not filled on Weekends or on Weekdays after 3:00PM For all medication refills: Request a refill using [employer] or contact your Pharmacy The bilateral knee was injected with Kenalog-40 and lidocaine. Avoid Strenuous Activity for the remainder of the day and avoid activities that cause pain for one to two weeks following the injection. Signs and Symptoms to watch for: If you have any redness, warmth or increasing pain at the site of the injection or develop a fever, please call [phone] Follow up as needed documented in this encounter Progress Notes Dyllan Teresa MD - 12/24/2018 12:00 PM CDT NAME: RAIN CENTENO MR#: [id number] CSN: [id number] AUTHENTICATING CLINICIAN: Dyllan Teresa MD CONFIRM #: [id number] LOC: 711 CLINIC PROGRESS NOTE DATE OF VISIT: 12/24/2018 : 1950 Rain is seen in followup for both of his knees. He had intraarticular steroid in the middle of August. He had quite good relief for a number of months. He started to have some trouble again. He has some upcoming activities and wants to know if that can be repeated at this point. He also has questions about more definitive treatment. He had magnetic resonance imaging of knees this past fall. He wasseen to have meniscal pathology in both of his knees. He had some articular surface changes, slightly greater on the right side than the left, but no areas of exposed bone. On evaluation of both of his knees, he has full active extension. He has good flexion. He has a mildeffusion on the right. He has no effusion on the left. There is no redness or induration of either knee. He is tender to palpation of both the medial and lateral joint line of both of his knees. Ligaments are stable. Distal sensory and motor function are intact. ASSESSMENT: Overall, Rain continues to struggle some with both of his knees. He does have meniscal pathology. He does have some mild to moderate osteoarthritis of both of his knees, right side is a little more advanced than the left. PLAN: I think that to proceed with intra-articular steroid at this time to try and reduce his symptoms andincrease his activities for now is reasonable. I think to give some serious thought to whether or not he would be an appropriate candidate for arthroscopy with meniscectomy and chondroplasty is reasonable. The patient would like to carry through with that plan. I will speak with my sports medicine partners and have them review his studies to determine whether or not reasonably that he could be substantially improved with arthroscopic intervention. Will contact the patient with further results. The patient was then sterilely prepped and has 1% plain Xylocaine placed at the superolateral portalof each of his 2 knees. On the left knee, he has 80 mg of Kenalog along with 6 mL of 1% plain Xylocaine injected into the left knee through the superolateral portal. He tolerates it well. On the right knee following the local anesthetic, he has 35 mL of normal-appearing joint fluid aspirated from the knee. He then has 80 mg of Kenalog along with 6 mL of 1% plain Xylocaine injected into the right kneethrough the superolateral portal. He tolerates it well. We will proceed as noted above. AWM:MEDMagy C: R:12/24/18 13:19 CONFIRM#:[id number] documented in this encounter Plan of Treatment Upcoming Encounters Date Type Specialty Care Team Description 05/29/2022 Appointment Orthopedics Kathi Fry PA-C [address] [place] [address] (Wo rk) documented as of this encounter Visit Diagnoses Diagnosis Pain in both knees, unspecified chronici ty - Primary documented in this encounter Care Teams Airplane Pilot Helper Relationship Specialty Start Date End Date Pcp, Skinny Rosario MD PCP - General 07/14/18 06/14/20 [place] [address] documented as of this encounter
--- OUTSIDE RECORDS SUMMARY | 2022-05-14 09:06 | XMS_ITS | Encounter Summary ---
:1950 Author Organization [facility] Address [address] [place] [address] Care Team Providers Name Role Phone Pcp, Pt Declines Primary Care Provider Reason for Visit Procedure/Equipment (Routine) - Incomplete Specialty Diagnoses / Procedures Referred By Contact Refer red To Contact Diagnoses Chronic pain of both knees Dyllan Teresa MD Procedures XR Knee Rt 3 Views [address] [facility] [place] [address] Referral ID Status Reason Start Date Expiration Date Visits V isits Requested Authorized [id number] Incomplete 12/01/2019 03/01/2021 1 1 Encounter Details Date Type Department Care Team Description 12/01/2019 Ancillary [facility] Dyllan Teresa, Chronic pain of Procedure [address] [facility] [address] [facility] [place] [address] [phone] Social History Tobacco Use Types Packs/Day Years [...] Description 05/29/2022 Appointment Orthopedics Kathi Fry PA-C [address] [place] [address] (Wo rk) documented as of this encounter Procedures Procedure Name Priority Date/Time Associated Diagnosis Comme nts XR KNEE RT 3 VIEWS Routine 12/01/2019 3:53 PM Chronic pain of both 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 XR KNEE LT 3 VIEWS Routine 12/01/2019 3:53 PM Chronic pain of both 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 documented in this encounter Results XR Knee Rt 3 Views (12/01/2019 3:53 PM LEARNING CENTER INSTRUCTOR) Anatomical Region Laterality Modality Lower Extremity, Knee Digital Radiograph y Specimen (Source) Anatomical Location Collection Method / Collectio n Time Received Time / Laterality Volume Narrative 12/06/2019 12:57 PM CDT A bilateral knee series shows narrowing of the lateral compartment of the right knee greater than the left. ??Ther e has been interim change of decreasing joint space since his last se t of pictures from May of 2018. ??There is no evidence for acute c hange or significant calcific changes in the soft tissue. ??The latera l view of the left knee shows a narrowness in the femoral tibial articul ation with a small superior and inferior pole osteophyte of the patella. ??His right knee shows what might be a slight decrease in the retropatella r position along with mild inferior and superior pole osteophytes. ??His bilateral patellofemoral view shows narrowing of the lateral half of t he patellofemoral joint, greater on the left side than the right. ??He munguia s some peripheral osteophytes, largest at the lateral side of the troch roseanne bilaterally. Dyllan Teresa MD RAD GD XR Knee Lt 3 Views (12/01/2019 3:53 PM LEARNING CENTER INSTRUCTOR) Anatomical Region Laterality Modality Lower Extremity, Knee Digital Radiograph y Specimen (Source) Anatomical Location Collection Method / Collectio n Time Received Time / Laterality Volume Narrative 12/06/2019 12:57 PM CDT A bilateral knee series shows narrowing of the lateral compartment of the right knee greater than the left. ??Ther e has been interim change of decreasing joint space since his last se t of pictures from [place] of 2018. ??There is no evidence for acute c hange or significant calcific changes in the soft tissue. ??The latera l view of the left knee shows a narrowness in the femoral tibial articul ation with a small superior and inferior pole osteophyte of the patella. ??His right knee shows what might be a slight decrease in the retropatella r position along with mild inferior and superior pole osteophytes. ??His bilateral patellofemoral view shows narrowing of the lateral half of t he patellofemoral joint, greater on the left side than the right. ??He munguia s some peripheral osteophytes, largest at the lateral side of the troch roseanne bilaterally. Dyllan Teresa MD RAD GD documented in this encounter Visit Diagnoses Diagnosis Chronic pain of both knees documented in this encounter Care Teams State Editor Relationship Specialty Start Date End Date Pcp, Skinny Rosario MD PCP - General 07/14/18 06/14/20 [place] [address] documented as of this encounter
--- OUTSIDE RECORDS SUMMARY | 2022-05-14 09:06 | XMS_ITS | Encounter Summary ---
:1950 Author Organization [facility] Address [address] [place] [address] Care Team Providers Name Role Phone Pcp, Pt Declines Primary Care Provider Reason for Referral (Routine) - Closed Specialty Diagnoses / Procedures Referred By Contact Refer red To Contact Diagnoses Osteoarthritis of right knee, unspecified osteoarthritis type Dyllan Teresa MD Procedures Triamcinolone Acet Inj Nos: (per 10 mg) [address] [facility] [place], [place] [address] Referral ID Status Reason Start Date Expiration Date Visits Requ ested Visits Authorized [id number] Closed 09/16/2018 12/16/2019 1 1 BLOWER Reason for Visit Reason Comments Knee Problem Right knee requesting inject ion Encounter Details Date Type Department Care Team Description 09/11/2018 Office Visit [facility] Dyllan Teresa, Osteoar thritis of right CENTER knee, unspecified [address] [facility] [address] [facility] osteoarthritis type [place] [facility] [place] (Primary Dx) [id number] [phone] Social History Tobacco Use Types Packs/Day Years [...] as of this encounter Patient Instructions Patient InstructionsSaige Casey MA - 09/11/2018 11:[address] Dyllan Teresa MD Orthopaedic Surgeon Oil Well Driller: Monique Candelaria Please contact Monique for all administrative questions at [phone] Nurse: Magaly Connolly Please contact Magaly for any medical questions at [phone] Medication Requests: Prescriptions are not filled on Weekends or on Weekdays after 3:00PM For all medication refills: Request a refill using [employer] or contact your Pharmacy The RIGHT knee was prepped for an aspiration then proceeded with injecting Kenalog-80 and lidocaine. Avoid Strenuous Activity for the remainder of the day and avoid activities that cause pain for one to two weeks following the injection. Signs and Symptoms to watch for: If you have any redness, warmth or increasing pain at the site of the injection or develop a fever, please call [phone] BLOWER documented in this encounter Progress Notes Dyllan Teresa MD - 09/11/2018 12:00 PM CST NAME: RAIN CENTENO MR#: [id number] CSN: [id number] AUTHENTICATING CLINICIAN: Dyllan Teresa MD CONFIRM #: [id number] LOC: 711 CLINIC PROGRESS NOTE DATE OF VISIT: 09/11/2018 : 1950 Rain is seen in followup for his right knee. He is having some increasing difficulty with pain, swelling, and stiffness. He did have intraarticular steroid 06/15/2018. This was ultimately followed by intraarticular steroid in the left knee 07/14/2018. He feels as though the relief factor for him in his left knee has far outstripped the response in his right knee. He is wondering whether or not it would be worth trying to repeat the injection on the right knee to see if it is possible that a period of relief and better function with a 2nd injection would help. He has not otherwise had any interval injury. He tries to remain active. He does do some ongoing exercise. He tries to golf. He plans on continuing to try to remain active, and would like to decrease his pain and increase his functional status. On examination of his right knee, he has a [id number] effusion. He lacks just a few degrees offull extension. He has pain with flexion nearing 120 degrees. He is tender on the medial joint line.He has some pain with retropatellar grind testing. His ligaments are otherwise quite stable to straig ht line testing with some mild medial-sided opening with an endpoint. Distal sensory and motor function are intact. ASSESSMENT: Overall, Rain is struggling a bit with his right knee and I think that repeating his intraarticularsteroid at this point is a reasonable thought. This was discussed with him and he wishes to proceed. PLAN: Patient is sterilely prepped and has 1% plain Xylocaine placed at the superolateral portal of the right knee. He then has 40 mL of normal-appearing joint fluid aspirated from his right knee. This is then followed with 80 mg of Kenalog along with 6 mL of 1% plain Xylocaine injected into the right knee through the superolateral portal. He toleratesit well. Will see how he does with this clinically. AWM:MEDQ C: R:09/15/18 16:15 CONFIRM#:[id number] BLOWER documented in this encounter Plan of Treatment Upcoming Encounters Date Type Specialty Care Team Description 05/29/2022 Appointment Orthopedics Kathi Fry PA-C [address] [facility] [address] [place], [place] [address] (Wo rk) documented as of this encounter Visit Diagnoses Diagnosis Osteoarthritis of right knee, unspecifie d osteoarthritis type - Primary documented in this encounter Care Teams Tire Installer Relationship Specialty Start Date End Date Pcp, Skinny Rosario MD PCP - General 07/14/18 06/14/20 [place], [place] [id number] documented as of this encounter
--- OUTSIDE RECORDS SUMMARY | 2022-05-14 09:06 | XMS_ITS | Encounter Summary ---
:1950 [address] [facility] Address [address] [address] Care Team Providers Name Role Phone Pcp, Pt Declines Primary Care Provider Reason for Visit Procedure/Equipment (Routine) - Incomplete Specialty Diagnoses / Procedures Referred By Contact Refer red To Contact Diagnoses Pain in both knees, unspecified chronicity Dyllan Teresa MD Procedures MR Knee Lt WO IV Cont [address] [facility] [address] [place] [address] Referral ID Status Reason Start Date Expiration Date Visits V isits Requested Authorized [id number] Incomplete 07/09/2018 10/08/2019 1 1 Encounter Details Date Type Department Care Team Description 07/14/2018 Imaging [facility] MRI Dyllan Teresa MD Pain in both knees, [address] [facility] [address] [facility] unspecified chronicity [place] [address] [place] [address] [phone] (Wo rk) Social History Tobacco Use Types [...] 05/29/2022 Appointment Orthopedics Kathi Fry PA-C [address] [place] [address] (Wo rk) documented as of this encounter Procedures Procedure Name Priority Date/Time Associated Diagnosis Comme nts MR KNEE LT WO IV Routine 07/14/2018 11:51 AM Pain in both knee s, Results for this CONT CDT unspecified procedure are i n chronicity the results section. documented in this encounter Results MR Knee Lt WO IV Cont (07/14/2018 11:51 AM CDT) Anatomical Region Laterality Modality Lower Extremity, Knee, Skeletal, Thigh, Leg Left Magnetic Resonance Specimen (Source) Anatomical Collection Method Collection Time Re ceived Time Location / / Volume Laterality 07/14/2018 11:38 AM CDT Impressions 07/14/2018 12:27 PM CDT IMPRESSION: 1. Large partially displaced tear within the posterior horn and body the medial meniscus. Moderate sized displaced meniscal fragment in the inferior aspect of the medial recess. 2. Moderate sized complex horizontal tea r of the long the inferior articular surface of the posterior horn of the lateral meniscus. 3. Tricompartmental chondromalacia and m arginal hypertrophic changes compatible with osteoarthritis. 4. Moderate mucoid degeneration of the A CL. 5. Large popliteal cyst with synovitis. Small joint effusion. Narrative 07/14/2018 12:27 PM CDT TECHNIQUE: Routine MRI of the left knee was performed without contrast. COMPARISON: None. FINDINGS: MEDIAL COMPARTMENT: Moderate sized area of grade II chondromalacia within the lateral aspect of the medial femoral condyle. Large partially displaced horizontal tear within the posterior horn and body o f the medial meniscus. Moderate displace d meniscal fragment in the inferior aspect of the medial recess. Small focal area of grade III chondromalacia within the anterior medial aspect of the medial tibi al plateau with associated subchondral m arrow edema. Mild marginal hypertrophic changes. LATERAL COMPARTMENT: Moderate right 2-3 chondromalacia within the posterior portion of the lateral femoral condyle. Moderate sized area of grade 2-3 chondromalacia in the posterior lateral tibial platea u. Moderate sized complex horizontal tea r primarily along the inferior articular surface of the posterior horn. Moderate marginal hypertrophic changes. PATELLOFEMORAL JOINT: Diffuse grade II c hondromalacia in the patella. Diffuse grade II chondromalacia in the lateral femoral trochlea. Small joint effusion. Large popliteal cyst with synovitis. No defin ite osteochondral loose bodies. Mild mar ginal hypertrophic changes LIGAMENTS AND TENDONS: Moderate mucoid d egeneration of the ACL. PCL, MCL and lateral collateral ligament complex are intact. The popliteus muscle and tendons are normal. There is no evidence of injury t o the posterolateral corner supporting s tructures. EXTENSOR MECHANISM: The quadriceps and p atellar tendons are normal. The medial retinaculum, medial patellofemoral ligament, and lateral retinaculum are normal. MARROW AND SOFT TISSUES: No evidence of acute fractures or osteonecrosis. No soft tissue masses. Procedure Note Ollie Wilson MD - 07/14/2018For matting of this note might be different from the original. TECHNIQUE: Routine MRI of the left knee was performed without contrast. COMPARISON: None. FINDINGS: MEDIAL COMPARTMENT: Moderate sized area of grade II chondromalacia within the lateral aspect of the medial femoral condyle. Large partially displaced horizontal tear within the posterior horn and body of the medial meniscus. Moderate displaced meniscal fr agment in the inferior aspect of the medial recess. Small focal area of grade III chondromalacia within the anterior medial aspect of the medial tibial plateau with associated subchondral marrow edema. Mild marginal hypertrophic changes. LATERAL COMPARTMENT: Moderate right 2-3 chondromalacia within the posterior portion of the lateral femoral condyle. Moderate sized area of grade 2-3 chondromalacia in the posterior lateral tibial plateau. Moderate sized complex horizontal tear primarily along the inferior articular surface of the posterior horn. Moderate marginal hypertrophic changes. PATELLOFEMORAL JOINT: Diffuse grade II c hondromalacia in the patella. Diffuse grade II chondromalacia in the lateral femoral trochlea. Small joint effusion. Large popliteal cyst with synovitis. No definite osteochondral loose bodies. Mild margina l hypertrophic changes LIGAMENTS AND TENDONS: Moderate mucoid d egeneration of the ACL. PCL, MCL and lateral collateral ligament complex are intact. The popliteus muscle and tendons are normal. There is no evidence of injury to the posterolateral corner supporting structu res. EXTENSOR MECHANISM: The quadriceps and p atellar tendons are normal. The medial retinaculum, medial patellofemoral ligament, and lateral retinaculum are normal. MARROW AND SOFT TISSUES: No evidence of acute fractures or osteonecrosis. No soft tissue masses. IMPRESSION IMPRESSION: 1. Large partially displaced tear within the posterior horn and body the medial meniscus. Moderate sized displaced meniscal fragment in the inferior aspect of the medial recess. 2. Moderate sized complex horizontal tea r of the long the inferior articular surface of the posterior horn of the lateral meniscus. 3. Tricompartmental chondromalacia and m arginal hypertrophic changes compatible with osteoarthritis. 4. Moderate mucoid degeneration of the A CL. 5. Large popliteal cyst with synovitis. Small joint effusion. Dyllan Teresa MD RAD MRI documented in this encounter Visit Diagnoses Diagnosis Pain in both knees, unspecified chronici ty documented in this encounter Care Teams Mainframe Software Developer Relationship Specialty Start Date End Date Pcp, Skinny Rosario MD PCP - General 07/14/18 06/14/20 [place] [address] documented as of this encounter
--- OUTSIDE RECORDS SUMMARY | 2022-05-14 09:06 | XMS_ITS | Encounter Summary ---
:1950 Author Organization [facility] Address [address] [address] Care Team Providers Name Role Phone Pcp, Pt Declines Primary Care Provider Reason for Referral Procedure/Equipment (Routine) - Incomplete Specialty Diagnoses / Procedures Referred By Contact Refer red To Contact Diagnoses Pain in both knees, unspecified chronicity Dyllan Teresa MD Procedures MR Knee Lt WO IV Cont [address] [place] [address] [place], [place] [address] Referral ID Status Reason Start Date Expiration Date Visits V isits Requested Authorized [id number] Incomplete 07/09/2018 10/08/2019 1 1 Encounter Details Date Type Department Care Team Description 07/09/2018 Notes/Orders [facility] Dyllan Teresa MD Pain in both knees, CENTER [address] [place] [address] unspecified [address] [place], [place] chronicity (Primary [place], [place] [id number] Dx) [phone] (Wo rk) Social History Tobacco Use Types [...] 05/29/2022 Appointment Orthopedics Kathi Fry PA-C [address] [place] [address] (Wo rk) documented as of this encounter Results MR Knee Lt WO [...] both knees, unspecified chronici ty - Primary Pain in both knees, unspecified chronici ty documented in this encounter Care Teams Snag Grinder Relationship Specialty Start Date End Date Pcp, Skinny Rosario MD PCP - General 07/14/18 06/14/20 [place] [address] documented as of this encounter
--- OUTSIDE RECORDS SUMMARY | 2022-05-14 09:06 | XMS_ITS | Encounter Summary ---
:1950 Author Organization [facility] Address [address] [place] [address] Care Team Providers Name Role Phone Pcp, Pt Declines Primary Care Provider Reason for Referral (Routine) - Closed Specialty Diagnoses / Procedures Referred By Contact Refer red To Contact Diagnoses Osteoarthritis of right knee, unspecified osteoarthritis type Dyllan Teresa MD Procedures Triamcinolone Acet Inj Nos: (per 10 mg) [address] [facility] [address] [place] [address] Referral ID Status Reason Start Date Expiration Date Visits Requ ested Visits Authorized [id number] Closed 04/16/2019 07/15/2020 1 1 Reason for Visit Reason Comments Knee Problem bilat knee pain Encounter Details Date Type Department Care Team Description 04/15/2019 Procedure Visit [facility] Dyllan Teresa, Knee Problem (bilat CENTER knee pain) [address] [facility] [address] [facility] [place] [address] [phone] Social History Tobacco Use Types Packs/Day Years [...] encounter Patient Instructions Patient InstructionsMonique Candelaria - 04/15/2019 10:[address] Dyllan Teresa MD Orthopaedic Surgeon Sewing Room Supervisor: Monique Candelaria Please contact Monique for all administrative questions at [phone] Nurse: Magaly Connolly Please contact Magaly for any medical questions at [phone] Medication Requests: Prescriptions are not filled on Weekends or on Weekdays after 3:00PM For all medication refills: Request a refill using [employer] or contact your Pharmacy The right knee was injected with Kenalog-80 and lidocaine. Avoid Strenuous Activity for the remainder of the day and avoid activities that cause pain for one to two weeks following the injection. Signs and Symptoms to watch for: If you have any redness, warmth or increasing pain at the site of the injection or develop a fever, please call [phone] Follow up as needed with documented in this encounter Progress Notes Dyllan Teresa MD - 04/15/2019 12:00 PM CDT NAME: RAIN CENTENO MR#: [id number] CSN: [id number] AUTHENTICATING CLINICIAN: Dyllan Teresa MD CONFIRM #: [id number] LOC: 711 CLINIC PROGRESS NOTE DATE OF VISIT: 04/15/2019 : 1950 Rain is seen in followup for both of his knees. His right knee has been most bothersome with increasing swelling and decreasing function. He had intra- articular steroid on 12/24/2018. His left knee seems to be holding its own. Patient does have a lengthy vacation coming up. He would like to intervenewith injection, intra-articular on the right knee. He has some questions regarding the possibility of viscosupplementation at some point. EXAMINATION: On examination of his right knee, he has full active extension. He has flexion to 115 degrees. He has a moderate effusion. He has no redness or induration. He is tender to palpation in both the medial lateral joint lines. He has some pain with retropatellar grind testing. Distal sensory and motor function are intact. Overall, Rain has increasing pain and dysfunction secondary to his underlying osteoarthritis. I think to repeat his intra-articular steroid is appropriate. May, if his knee does calm down and have recurrence, choose viscosupplementation to try and get a longer period of decreased pain and increased function, and that would be reasonable as well. PLAN: The patient is sterilely prepped and has 1% plain Xylocaine placed at the superolateral portal of his right knee. He then has 5 mL of normal-appearing joint fluid aspirated from the right knee. He thenhas 80 mg of Kenalog, along with 6 mL of 1% plain Xylocaine injected into his right knee through the superolateral portal. We will see how he does clinically. AWM:MEDQ C: R:04/15/19 15:07 CONFIRM#:[id number] documented in this encounter Plan of Treatment Upcoming Encounters Date Type Specialty Care Team Description 05/29/2022 Appointment Orthopedics Kathi Fry PA-C [address] [place] [address] (Wo rk) documented as of this encounter Visit Diagnoses Diagnosis Osteoarthritis of right knee, unspecifie d osteoarthritis type - Primary documented in this encounter Care Teams Intern Architect Relationship Specialty Start Date End Date Pcp, Skinny Rosario MD PCP - General 07/14/18 06/14/20 [place] [address] documented as of this encounter
--- OUTSIDE RECORDS SUMMARY | 2022-05-14 09:06 | XMS_ITS | Encounter Summary ---
:1950 Author Organization [facility] Address [address] [place] [address] Care Team Providers Name Role Phone Pcp, Pt Declines Primary Care Provider Reason for Visit Reason Comments Orders Needed Encounter Details Date Type Department Care Team Description 12/08/2019 Telephone [facility] ORTH[facility] [address] Kathi Fry, ROSY Orders Needed [address] [facility] [address] [facility] [place], [place] [address] [place] [address] [phone] (Wo rk) Social History Tobacco Use Types [...] documented as of this encounter Nursing Notes Ara Lee RN - 12/08/2019 2:10 PM CDT Contacted pt He would like to get the injections here at [facility]. Advised that he should get a call from pain clinic in the next day or so after checking for need forprior authorization to get injections scheduled He verbalized understanding and did not have any questions. Kathi Fry PA-C - 12/08/2019 1:19 PM CDT Spoke w Dr Teresa, placed Facet joint injections here at [facility]. If pt would like injections done somewhere else, please let me know as they live in [facility]. documented in this encounter Plan of Treatment Upcoming Encounters Date Type Specialty Care Team Description 05/29/2022 Appointment Orthopedics Kathi Fry PA-C [address] [place], [place] [address] (Wo rk) documented as of this encounter Visit Diagnoses Not on filedocumented in this encounter Care Teams Hydroelectric Plant Maintainer Relationship Specialty Start Date End Date PcpSkinny MD PCP - General 07/14/18 06/14/20 [place], [place] [id number] documented as of this encounter
--- OUTSIDE RECORDS SUMMARY | 2022-05-14 09:06 | XMS_ITS | Encounter Summary ---
:1950 Author Organization [employer] Address [address], [place] [address] Care Team Providers Name Role Phone Pcp, Pt Declines Primary Care Provider Reason for Visit Reason Comments Pre-procedure Call Encounter Details Date Type Department Care Team Description 02/02/2020 Telephone [facility] Lilia Carrillo RN Pre-procedure Call [address] [place], [place] [address] Social History Tobacco Use Types [...] documented as of this encounter Nursing Notes Lilia Carrillo RN - 02/02/2020 2:06 PM CDT Pre-procedure instructions called to Merrick Reviewed Medical & Surgical History & information below: Arrival Time: 1150 Non sedation pt: Nothing 2 hours prior to procedure, Light meal ok prior to that. Sedation Pt: NPO solids 6 hours prior with Clear liquids up to 2 hours prior to procedure. Nothing for 2 hours prior. Encouraged pt to take prescription medications with a sip of water as usual in am. 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 Reviewed NSAID use with patient: (Cervical RICHY) Last Dose na Blood thinners (RICHY, Cervical RFA, Stellate, LSB only): Last Dose stopping 02/[address] Ramon Al INR plan na Currently on Antibiotics? na Flu Shot/Vaccines within 7 days? na Recent Steroid injection? na If Diabetic is patient under good control? Recent BS? nA Verbal COVID screening negative Reminder if female age 50 or less will need a UPT if no hysterectomy. Wear loose fitting, comfortable clothing, no valuables (jewelry, etc). Bring photo ID & medical cards. Patient verbalized understanding of all of the above & questions/concerns answered. documented in this encounter Plan of Treatment Upcoming Encounters Date Type Specialty Care Team Description 05/29/2022 Appointment Orthopedics Kathi Fry PA-C [address] [place], [place] [id number] (Wo rk) documented as of this encounter Visit Diagnoses Not on filedocumented in this encounter Care Teams Rail Assembler Relationship Specialty Start Date End Date Pcp, Pt MD Abraham PCP - General 07/14/18 06/14/20 [place], [place] [id number] documented as of this encounter
--- OUTSIDE RECORDS SUMMARY | 2022-05-14 09:06 | XMS_ITS | Encounter Summary ---
:1950 Author Organization [email or web address] Address [address] [place] [address] Care Team Providers Name Role Phone Pcp, Pt Declines MD Primary Care Provider Reason for Visit Procedure/Equipment (Routine) - Incomplete Specialty Diagnoses / Procedures Referred By Contact Refer red To Contact Diagnoses Lumbar spondylosis (HRC) Kathi Fry PA-C Procedures MR Lumbar Spine WO IV Cont [address] [facility] [place], [place] [address] Referral ID Status Reason Start Date Expiration Date Visits V isits Requested Authorized [id number] Incomplete 12/14/2018 03/14/2020 1 1 Encounter Details Date Type Department Care Team Description 12/16/2018 Ancillary [facility] Kathi Fry, Lumbar spondylosis Procedure [address] [facility] [address] [facility] [place], [place] [address] [phone] Social History Tobacco Use Types Packs/Day Years [...] 05/29/2022 Appointment Orthopedics Kathi Fry PA-C [address] [place] [address] (Wo rk) documented as of this encounter Procedures Procedure Name Priority Date/Time Associated Diagnosis Comme nts MR LUMBAR SPINE WO Routine 12/16/2018 2:16 PM Lumbar spondylos is Results for this IV CONT CDT procedure are i n the results section. documented in this encounter Results MR Lumbar Spine WO IV Cont (12/16/2018 2:16 PM CDT) Anatomical Region Laterality Modality Spine, L-Spine, Skeletal Magnetic Resona nce Specimen (Source) Anatomical Collection Method Collection Time Re ceived Time Location / / Volume Laterality 12/16/2018 1:32 PM CDT Impressions 12/16/2018 4:31 PM CDT IMPRESSION: ?? 1. Small right paracentral disc protrusi on effaces the ventral thecal sac at the L3-L4 level. 2. Mild disc bulges are present at the L 1-L2, L2-L3, L4-L5, and L5-S1 levels as detailed above. 3. Vzvc-bo-yswyercd right neural foramin al stenosis at the L4-L5 level. 4. Mild narrowing of the proximal L3-L4 and right L5-S1 neural foramen. Narrative 12/16/2018 4:31 PM CDT INDICATION: BILATERAL LEG WEAKNESS TECHNIQUE: ??Routine non-contrast MRI of the lumbar spine. COMPARISON: None. FINDINGS: Five lumbar-type vertebral bod ies. The conus medullaris terminates at the level of the L1 vertebral body. ??Normal cord signal. ??Degenerative disc disease with associated degenerative endplat e changes most marked at the L4-L5 and L 5-S1 levels. ??Mild lumbar scoliosis convex right. The visualized paraspinal structures are unremarkable. Axial: T12-L1: The spinal canal and neural fora men are patent. L1-2: Mild disc bulge effaces the ventra l thecal sac. The neural foramen are patent. L2-3: Mild disc bulge flattens the ventr al thecal sac. The neural foramen are patent. ?? L3-4: Small right paracentral disc protr usion effaces the ventral thecal sac. Mild narrowing of the proximal neural foramen. L4-5: Mild disc bulge flattens the ventr al thecal sac. Mild degenerative facet changes. Mild to moderate right neural foraminal stenosis. The left neural foramen is patent. L5-S1: Mild disc bulge flattens the vent ral thecal sac. Moderate degenerative facet changes. Mild narrowing of the right neural foramen. The left neural foramen is patent. ?? Procedure Note Tra Chisholm MD - 12/16/2018Forma tting of this note might be different from the original. INDICATION: BILATERAL LEG WEAKNESS TECHNIQUE: Routine non-contrast MRI of t he lumbar spine. COMPARISON: None. FINDINGS: Five lumbar-type vertebral bod ies. The conus medullaris terminates at the level of the L1 vertebral body. Normal cord signal. Degenerative disc disease with associated degenerative endplate changes most marked at the L4-L5 and L5-S1 level s. Mild lumbar scoliosis convex right. The visualized paraspinal structures are unremarkable. Axial: T12-L1: The spinal canal and neural fora men are patent. L1-2: Mild disc bulge effaces the ventra l thecal sac. The neural foramen are patent. L2-3: Mild disc bulge flattens the ventr al thecal sac. The neural foramen are patent. L3-4: Small right paracentral disc protr usion effaces the ventral thecal sac. Mild narrowing of the proximal neural foramen. L4-5: Mild disc bulge flattens the ventr al thecal sac. Mild degenerative facet changes. Mild to moderate right neural foraminal stenosis. The left neural foramen is patent. L5-S1: Mild disc bulge flattens the vent ral thecal sac. Moderate degenerative facet changes. Mild narrowing of the right neural foramen. The left neural foramen is patent. IMPRESSION IMPRESSION: 1. Small right paracentral disc protrusi on effaces the ventral thecal sac at the L3-L4 level. 2. Mild disc bulges are present at the L 1-L2, L2-L3, L4-L5, and L5-S1 levels as detailed above. 3. Gaom-lf-xikotrwr right neural foramin al stenosis at the L4-L5 level. 4. Mild narrowing of the proximal L3-L4 and right L5-S1 neural foramen. Kathi Fry PA-C RAD MRI documented in this encounter Visit Diagnoses Diagnosis Lumbar spondylosis (HRC) Lumbosacral spondylosis without myelopat hy documented in this encounter Care Teams Scrap Dealer Relationship Specialty Start Date End Date Pcp, Skinny Rosario MD PCP - General 07/14/18 06/14/20 [place], [place] [id number] documented as of this encounter
--- OUTSIDE RECORDS SUMMARY | 2022-05-14 09:06 | XMS_ITS | Encounter Summary ---
:1950 Author Organization [employer] Address [address] [address] Care Team Providers Name Role Phone Pcp, Pt Declines Primary Care Provider Reason for Referral (Routine) - Closed Specialty Diagnoses / Procedures Referred By Contact Refer red To Contact Diagnoses Osteoarthritis of both knees, unspecified osteoarthritis type Dyllan Teresa MD Procedures Triamcinolone Acet Inj Nos: (per 10 mg) [address] [facility] [place], [place] [address] Referral ID Status Reason Start Date Expiration Date Visits Requ ested Visits Authorized [id number] Closed 09/01/2019 11/30/2020 1 1 STRETCHER Reason for Visit Reason Comments KNEE PAIN Bilateral Knee Encounter Details Date Type Department Care Team Description 08/31/2019 Office Visit [facility] Dyllan Teresa, Osteoar thritis of both CENTER knees, unspecified [address] [facility] [address] [facility] osteoarthritis type [place], [place] (Primary Dx) [address] [phone] Social History Tobacco Use Types Packs/Day Years [...] as of this encounter Patient Instructions Patient InstructionsGabrielleEstrelal ogHEATHER - 08/31/2019 3:[address] Dyllan Teresa MD Orthopaedic Surgeon Medication Requests: Prescriptions are not filled on weekends or on weekdays after 3:00 PM The bilateral knee was injected with Kenalog-80 and lidocaine. Avoid Strenuous Activity for the remainder of the day and avoid activities that cause pain for one to two weeks following the injection. Signs and Symptoms to watch for: If you have any redness, warmth or increasing pain at the site of the injection or develop a fever, please call [phone] You've just had a steroid (cortisone) injection: Steroid injections are among the most frequently used treatments in orthopedics. Steroid injections are used for a wide range of conditions from arthritis, to bursitis, to tennis elbow, etc. The two most common side-effects of steroid shots called ???steroid flare??? and ???steroid flush. Steroid flare can cause an increase in symptoms in the first 24-48 hours after a steroid injection. This will usually subside within a few days, and is a cause from the additional fluid in your joint, and the trauma to the joint lining from the injection. This pain usually subsides quickly and can be aided with an ice pack and over the counter anti-inflammatory medication. Steroid flush is a flushing sensation and redness of their face. This reaction is more common in women, but can occur in men as well, and is seen into up to 15 percent of patients. This can begin within a few hours of the injection and may last for a few days. It is not dangerous, and will resolve itself. Diabetic patients also can have their blood sugar levels affected. Patients with diabetes should carefully monitor their blood sugar as steroid can cause a temporary rise in their levels. Patients taking insulin should be especially careful, checking their blood sugar often and adjusting the insulin doses, if necessary. Steroid injections can only be repeated every 3 or 4 months. For some conditions there may also be alimited total number of times it is safe to repeat an injection. RISKS: Infection ?? Whenever there is a break in the skin, like when a needle is used to administer steroid, there sarah chance of infection this is very unlikely to happen, usually would occur days after the injection.Signs and symptoms to watch for: fever, streaking redness, pus, drainage, foul odor, localized redness that continues to get worse, come to the office if symptoms are recognized during business hours, or proceed to the emergency room if symptoms are recognized after office hours. Skin Pigment Changes ?? Patients should also be aware that steroid may cause skin around the injection site to lighten. This is not harmful or long lasting. Loss of Fatty Tissue ?? This is one reason we limit the number of steroid injections administered. High doses of steroid can have detrimental effects on some tissues in the body, though due to the dosage we use the risk isextremely rare. When injected into fatty tissue, steroid can lead to a problem called fat atrophy. Fat atrophy causes loss of fatty tissue, which can lead to dimpling of the skin or the thinning out offat. Skin will feel thin. Patients who get steroid injections in the heel to treat plantar fasciitismay find walking painful as fat that usually cushions their steps may thin out. Tendon Rupture ?? Steroid can also cause weakening of tendons. This is one reason to limit the number of steroid injections administered. STRETCHER documented in this encounter Progress Notes Dyllan Teresa MD - 08/31/2019 12:00 PM CST NAME: RAIN CENTENO MR#: [id number] CSN: [id number] AUTHENTICATING CLINICIAN: Dyllan Teresa MD CONFIRM #: [id number] LOC: 711 CLINIC PROGRESS NOTE DATE OF VISIT: 08/31/2019 : 1950 Rain is seen with a complaint of some pain and some feelings of instability in both of his knees. He can sit for prolonged periods without a lot of pain. When he gets up, it is difficult for him. Oncehe gets his knees moving and gets going, it is not too bad. We did discuss his symptomatology over the phone a few days prior to his clinic visit today. He has had magnetic resonance image of both of his knees that shows he has some articular surface abnormalities in the weightbearing portions of his knee and also has meniscus tears of both medial and lateral in both of his knees with some of the fragments appearing flipped back on themselves. We discussed these findings again. PHYSICAL EXAM: On examination of both of his knees, he has just a few degrees of flexion contracture bilaterally. He flexes to nearly 120 degrees. He has a trace of effusion today. He has no redness or induration. Hehas tenderness to palpation the medial and lateral joint line. He has some pain with retropatellar grind testing. Distal sensory and motor function are intact. 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 Ultimately, we had discussed on the phone as well as today that these knees might be amenable to arthroscopic meniscectomy plus-minus chondroplasty. The patient understands that and may choose to pursue that this spring. At this particular point, he is requesting intra-articular steroid which has been occasionally used, and has been helpful for a reasonable period of time. I think it is justified to havethat repeated at this time. PLAN: Patient is sterilely prepped and has 1% plain Xylocaine placed at the superolateral portal of each of his 2 knees. He then has 80 mg of Kenalog, along with 6 mL of 1% plain Xylocaine injected into eachof his 2 knees through the superolateral portal bilaterally. He tolerates it well. We will see how he does with this clinically. AWM:MEDMagy C: R:08/31/19 17:00 CONFIRM#:[id number] STRETCHER documented in this encounter Plan of Treatment Upcoming Encounters Date Type Specialty Care Team Description 05/29/2022 Appointment Orthopedics Kathi Fry PA-C [address] [place] [address] (Wo rk) documented as of this encounter Visit Diagnoses Diagnosis Osteoarthritis of both knees, unspecifie d osteoarthritis type - Primary documented in this encounter Care Teams Manager Internet Relationship Specialty Start Date End Date Pcp, Skinny Rosario MD PCP - General 07/14/18 06/14/20 [place] [address] documented as of this encounter
--- OUTSIDE RECORDS SUMMARY | 2022-05-14 09:06 | XMS_ITS | Encounter Summary ---
:1950 Author Organization [facility] Address [address] [place] [address] Care Team Providers Name Role Phone Pcp, Pt Declines Primary Care Provider Reason for Referral Procedure/Equipment (Routine) - Incomplete Specialty Diagnoses / Procedures Referred By Contact Refer red To Contact Diagnoses Lumbar spondylosis (HRC) Kathi Fry PA-C Procedures MR Lumbar Spine WO IV Cont [address] [facility] [address] [place] [address] Referral ID Status Reason Start Date Expiration Date Visits V isits Requested Authorized [id number] Incomplete 12/14/2018 03/14/2020 1 1 Procedure/Equipment (Routine) - Incomplete Specialty Diagnoses / Procedures Referred By Contact Refer red To Contact Diagnoses Lumbar spondylosis (HRC) Kathi Fry PA-C Procedures XR Lumbar Spine AP/Lat Views [address] [facility] [address] [place] [address] Referral ID Status Reason Start Date Expiration Date Visits V isits Requested Authorized [id number] Incomplete 12/14/2018 03/14/2020 1 1 Reason for Visit Reason Comments PAIN, BACK, LOW Encounter Details Date Type Department Care Team Description 12/14/2018 Office Visit [facility] Kathi Fry Lumba r spondylosis CENTER [facility] (Primary Dx) [address] [facility] [address] [facility] [address] [place], [place] [address] [place], [place] [phone] (Wo rk) Social History Tobacco Use Types [...] - Inhaled Oxygen Concentration - - Weight 136.1 kg (300 lb) 12/14/2018 9:40 AM CDT Height 200.7 cm (6' 7) 12/14/2018 9:40 AM CDT Body Mass Index 33.8 12/14/2018 9:40 AM CDT documented in this encounter Patient Instructions Patient InstructionsKathi Fry PA-C - 12/14/2018 10:00 AM CDT Kathi Fry PA-C Orthopaedic Spine Vending Route Driver: Maxine Fatima Please contact Bela for all administrative questions at [phone] Please contact the Spine Nurse for all medical related questions at [phone] Office Hours: Friday, Friday, Friday Medication Requests: Prescriptions are not filled on Weekends or on days after 3:00PM For all medication refills: Request a refill using [employer] or contact your Pharmacy Please determine coverage with your insurance provider before scheduling any procedures or testing. Dear Merrick, You have LUMBAR SPONDYLOSIS, or arthritis. We would like to make sure that the nerves traveling to the lower legs are not compressed, and so a MRI will be ordered. As you are claustrophobic, I will send A prescription of Valium to your pharmacy. If the MRI does NOT show nerve root compression, then we think about Neuropathy changes to the legs.Neuropathy is nerve symptoms OUTSIDE of the spinal canal. Ideally, wear compressive stockings for now, and elevate legs as needed. Nerve pain will not cause swelling, but heart issues, and prior ankle surgery can . documented in this encounter Progress Notes Kathi Fry PA-C - 12/14/2018 10:00 AM CDT Merrick Petty [id number] 1950 [facility] Orthopaedic [place] Consultation 12/14/2018 Chief Complaint: Bilateral Leg Pain History of Present Illness: Merrick Petty is a 68 y.o. male who was seen today in the medical spine clinic for evaluation of bilateral leg pain referred to me by Dr. Teresa. The patient has been having symptoms for 2-3 months, since a recent cruise. He denies trauma or injury. Pain is localized originating at the posterior thigh bilaterally, and radiating down the back of the knee to the posterior calves. He denies pain at rest or with typical daily walking; most of his pain is with transitioning out of a chair or car and with the first few steps afterwards. The patient does reports some mild diffuse swelling in the lower extremities after his cruise, but this resolved within 1-2 weeks. He denies back pain, bowel or bladder changes, weakness, numbness, or tingling and does not voice any other concerns today. Investigations Performed and Pertinent Image Review by Date: Xray (12/14/2018) I personally reviewed the available images Current Pain Medications: None. The [place] CEMENT TRUCK LOADER was not reviewed. Allergies: No known drug allergies. Noninterventional Techniques: none Interventional Techniques Employed: none Past Medical History: The patient has a history of thyroid disease, hypertension, and atrial fibrillation. Past Surgical History: The patient has a surgical history including aorta replacement and right foot surgery. Family History: The patient has no pertinent family history. Social History: The patient is retired. He is . Non-smoker. Review of Systems: 07/12 systems were reviewed and are negative except where noted in the HPI. The General Medical History Form dated 12/14/2018 was updated and reviewed with the patient; [facility]. Physical Exam: VS: Ht 2.007 m (6' 7) Wt 136.1 kg (300 lb) BMI 33.80 kg/m?? MADELINE: Incomplete. PHQ-2: Incomplete. BMI: Estimated body mass index is 33.8 kg/m?? as calculated from the following: Height as of this encounter: 2.007 m (6' 7). Weight as of this encounter: 136.1 kg (300 lb). Gen/Psych: AxOx3. Good affect. Good historian. The patient is not accompanied, and is well groomed. The patient is not using an assistive device. Eyes: PERRL. ENT: Face symmetric. Resp: Unlabored. CV: Good perfusion to lower extremities. No edema. Skin: Warm & dry without discoloration or lesions MSK: Symmetric tone and bulk. Mild edema at the ankles. The patient is scoliotic. Pelvis is not symmetric. Femoral Stretch Test deferred. Log roll is negative. Neuro: Gait and station normal, and non-antalgic. The patient transitions slowly and stiff from a seated position. Non-tender with palpation of spinous processes, paraspinal muscles, SI joints, sciatic notch, or greater trochanters. Lower Extremity muscle group strength is 5/5 with hip flexion, knee add/abduction intact, knee extension intact, dorsi/ plantar flexion. SLR is negative. Sensation intact to light touch and pinprick. Decreased vibratory sensation bilaterally at the medial and lateral malleolus. DTR's symmetric in the lower extremities at the patellar tendon, and ankle jerk. 0-1/4 . Imaging: Radiographs of the lumbar spine - (12/14/2018): COMPARISON: ??None. FINDINGS: ??5 lumbar type vertebral bodies. No evidence of acute fractures. Multilevel disc space narrowing and degenerative endplate changes in the lumbar spine. ??Moderate and severe facet joint arthropathy in the mid and lower lumbar spine. Atherosclerotic calcifications in the aorta. Mild rightward curvature of the lumbar spine. Report per radiology. I ordered and independently reviewed and interpreted the imaging studies above; the results were discussed with the patient. Diagnostic Impression: Merrick is a 68 y.o. year-old male with: Lumbar spondylosis. Plan: I examined the patient in the room and reviewed previous images and medical history. At this time I recommended that he obtain an MRI of the lumbar spine to rule out central canal stenosis. The patientexpressed understanding and is in agreement with this plan. He will schedule for the MRI at a time that is convenient for him. The patient is claustrophobic; he will require sedation to tolerate the study. All questions were answered and the patient will follow up after the MRI for results and treatment plan. TT: 30 minutes, CT: 20 minutes, discussing symptoms, imaging, exam findings, and available options. Documents reviewed prior to seeing the patient included a General Medical History Form, an Oswestry Disability Index with a PHQ-2, which has been imaged in to [employer]. Scribe Disclosure: I, Fabio Robles, am serving as a scribe to document [...] 05/29/2022 Appointment Orthopedics Kathi Fry PA-C [address] [place] [address] (Wo rk) documented as of this encounter Results MR Lumbar Spine WO [...] and L5-S1 levels as detailed above. 3. Uoqg-fh-pbrnpouu right neural foramin al stenosis at the [...] and L5-S1 levels as detailed above. 3. Xcgs-wm-jxqsdhny right neural foramin al stenosis at the L4-L5 level. 4. Mild narrowing of the proximal L3-L4 and right L5-S1 neural foramen. Kathi Fry PA-C RAD MRI XR Lumbar Spine AP/Lat Views (12/14/2018 9:56 [...] - Primary Lumbosacral spondylosis without myelopat hy Low back pain, unspecified back pain lat erality, unspecified chronicity, with sciatica presence unspecified (HRC) Lumbar spondylosis (HRC) Lumbosacral spondylosis without myelopat hy documented in this encounter Care Teams Credit Product Analyst Relationship Specialty Start Date End Date Pcp, Skinny Rosario MD PCP - General 07/14/18 06/14/20 [place] [address] documented as of this encounter
--- OUTSIDE RECORDS SUMMARY | 2022-05-14 09:06 | XMS_ITS | Encounter Summary ---
:1950 Author Organization [email or web address] Address [address] [address] Care Team Providers Name Role Phone Pcp, Pt Declines Primary Care Provider Reason for Referral (Routine) - Closed Specialty Diagnoses / Procedures Referred By Contact Refer red To Contact Diagnoses Chronic pain of left knee Dyllan Teresa MD Procedures Triamcinolone Acet Inj Nos: (per 10 mg) [address] [facility] [place] [address] Referral ID Status Reason Start Date Expiration Date Visits Requ ested Visits Authorized [id number] Closed 07/16/2018 10/15/2019 1 1 Reason for Visit Reason Comments Knee Pain or Injury B knee MRI results Encounter Details Date Type Department Care Team Description 07/14/2018 Office Visit [facility] Dyllan Teresa MD Chronic pain of left CENTER [address] [facility] knee (Primary Dx) [address] [place], [place] [phone] (Wo rk) Social History Tobacco Use Types [...] encounter Patient Instructions Patient InstructionsMonique Candelaria - 07/14/2018 1:[address] Dyllan Teresa MD Orthopaedic Surgeon Surgical Services Assistant: Monique Candelaria Please contact Monique for all administrative questions at [phone] Nurse: Magaly Connolly Please contact Magaly for any medical questions at [phone] Medication Requests: Prescriptions are not filled on Weekends or on Weekdays after 3:00PM For all medication refills: Request a refill using [employer] or contact your Pharmacy The left knee was injected with Kenalog-80 and lidocaine. Avoid Strenuous Activity for the remainder of the day and avoid activities that cause pain for one to two weeks following the injection. Signs and Symptoms to watch for: If you have any redness, warmth or increasing pain at the site of the injection or develop a fever, please call [phone] Follow up as needed documented in this encounter Progress Notes Dyllan Teresa MD - 07/15/2018 9:01 PM CDT NAME: RAIN CENTENO MR#: [id number] CSN: [id number] AUTHENTICATING CLINICIAN: Dyllan Teresa MD CONFIRM #: [id number] LOC: 711 CLINIC PROGRESS NOTE DATE OF VISIT: 07/14/2018 : 1950 Rain is a 68-year-old male seen with ongoing and increasing pain in both of his knees. He recently was seen by Mr. Sanjay Barahona in his clinic on 06/15/2018. He was known to have some early arthritic change, especially in his right knee. Rain has been having a lot of trouble twisting with his golf game. Mr. Tellez elected to proceed with intraarticular steroid. On 06/15/2018, he had 40 mg of Kenaloginjected into his right knee. That was quite helpful for Rain. He has continued to have difficulty and wished to have further diagnostic testing to determine whether or not at some particular point eduardo consider intervention such as arthroscopy if he had some acute pain generator in his knee on topof the more chronic [id number]-[id number] osteoarthrosis. PHYSICAL EXAM: On examination of both his knees, he has full active extension. He has pain with flexion nearing 120degrees bilaterally. He is tender to palpation in the medial joint line of both his knees, greater than the lateral joint line. He has some mild pain with retropatellar grind testing bilaterally. Pain is more significant left than right. He has stable ligaments to straight line and rotational testing.Distal sensory and motor function is intact. IMAGING STUDIES: MR examination is reviewed with the patient from today, 07/14/2018. First, the left knee shows that he has both a medial and lateral meniscus tear with the medial meniscus tear showing more significantly displaced meniscal tissue along with a larger portion of the meniscus being involved. He does have tricompartmental chondromalacic changes. He does have some mucoid degeneration of the ACL, but appears intact. Does have a popliteal cyst. The right knee MR is reviewed with the patient. He has marrow edema of the lateral femoral condyle centered in the area of cortical depression along the posterolateral weightbearing surface. He has some similar areas to a small subchondral fracture, but there is no significant step-off of any kind. Lucreciaoes have a flap tear of the body and posterior horn of the medial meniscus. He has an extensive complex tear throughout the lateral meniscus. There is some effusion and synovitis. He also has a large popliteal cyst on the right. ASSESSMENT: Overall, I think that Rain does have meniscal pathology, which probably is most of his acute pain generators, especially in the left knee than the right knee with a twisting rotation that is likely tohave aggravated the lateral femoral condyle, which shows the swelling in the marrow cavity. This wasall discussed with him. The right side is getting better as it has responded reasonably well to the intraarticular steroid. In discussing this with Rain, I think that with an upcoming trip that the pain and dysfunction can be improved with intraarticular steroid on the left, and he is in agreement. PLAN: The patient is sterilely prepped on his left knee. He has 1% plain Xylocaine placed at the superolateral portal of the left knee. He then has 80 mg of Kenalog along with 6 mL of 1% plain Xylocaine injected into his left knee through the superolateral portal. He tolerates it well. We will see how he does with both his knees clinically. AWM:MEDQ C: R:07/16/18 09:34 CONFIRM#:[id number] documented in this encounter Plan of Treatment Upcoming Encounters Date Type Specialty Care Team Description 05/29/2022 Appointment Orthopedics Kathi Fry PA-C [address] [place], [place] [address] (Wo rk) documented as of this encounter Visit Diagnoses Diagnosis Chronic pain of left knee - Primary Pain in joint, lower leg documented in this encounter Care Teams Engineering [employer]essionals Relationship Specialty Start Date End Date Pcp, Skinny Rosario MD PCP - General 07/14/18 06/14/20 [place] [address] documented as of this encounter
--- OUTSIDE RECORDS SUMMARY | 2022-05-14 09:07 | XMS_ITS | Encounter Summary ---
:1950 Author Organization [facility] Address [address] [place] [address] Care Team Providers Name Role Phone Unavailable Primary Care Provider Unavailable Reason for Referral Procedure/Equipment (Routine) - Incomplete Specialty Diagnoses / Procedures Referred By Contact Refer red To Contact Diagnoses Right knee pain, unspecified chronicity Sanjay Barahona PA-C Procedures XR Knee Lt 1-2 Views Comparison [address] [facility] [address] [place] [address] Referral ID Status Reason Start Date Expiration Date Visits V isits Requested Authorized [id number] Incomplete 06/15/2018 09/14/2019 1 1 Procedure/Equipment (Routine) - Incomplete Specialty Diagnoses / Procedures Referred By Contact Refer red To Contact Diagnoses Right knee pain, unspecified chronicity Sanjay Barahona PA-C Procedures XR Knee Rt 3 Views [address] [facility] [address] [place] [address] Referral ID Status Reason Start Date Expiration Date Visits V isits Requested Authorized [id number] Incomplete 06/15/2018 09/14/2019 1 1 Reason for Visit Reason Comments Knee Pain or Injury R knee pain Encounter Details Date Type Department Care Team Description 06/15/2018 Office Visit [facility] Sanjay Barahona Chondroc alcinosis of right knee (Primary Dx); [facility] Right knee pain, unspecified chronicity [address] [facility] [address] [place] [address] [phone] Social History Tobacco Use Types Packs/Day Years [...] as of this encounter Progress Notes Sanjay Barahona PA-C - 06/15/2018 8:50 AM CDT [facility] Consultation 06/15/2018 Chief Complaint: Right Knee Pain History of Present Illness: Merrick Petty is a 67 y.o. male who presents for evaluation of right knee pain. Patient reports he began to experience right medial, lateral, and posterior knee pain approximately four weeks ago without specific injury or trauma. Also expresses concern for giving way and swelling of the knee. Pain will present with golfing. Has been treating with conservative managements such as rest. The patient's pain improves with ice and rest and is worse with activity. He denies any numbness or tingling. Allergies: Patient has no known allergies to medications. Current Medications: The patient has a current medication list which includes the following prescription(s): levothyroxine and metoprolol tartrate. Past Medical History: The patient has no past pertinent medical history. 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 . Occasionally consumes alcohol. Exercises weekly. The General Medical History Form dated 06/15/2018 was updated and reviewed with the patient; this is located in [place] in [facility]. Review of Systems: Positive for high blood pressure and as above. No history of other heart, lung, liver, GI, or renal diseases, cancers, diabetes mellitus, or arthritis. Physical Exam: General: The patient is in no acute distress. Neuro: Answers questions appropriately. Alert and oriented x 3. Skin: Cool to touch without erythema, ecchymosis, or lesions. Right Knee: Tender medial and lateral joint line with crepitus. Saima's does not reproduce pain. Decreased range of motion. Trace swelling. Ligaments are stable. Full range of motion of hip and ankle are noted. Calves are supple and non-tender. 2+ pedal pulses are noted bilaterally. All tendons areintact with 5/5 strength. This is compared bilaterally. Imaging: Radiographs of the right knee series - 3 views (06/15/18): FINDINGS: Multiple views of both knees obtained. There is no fracture in either knee. There is bilateral chondrocalcinosis. There is mild bilateral tricompartmental joint space narrowing and spurring. No fracture identified. No significant right-sided effusion. Report per radiologist. I ordered and independently reviewed and interpreted the imaging studies above; the results were discussed with the patient. Assessment: Diagnosis and Associated Orders ICD-10-CM 1. Chondrocalcinosis of right knee M11.261 2. Right knee pain, unspecified chronicity M25.561 XR Knee Rt 3 Views XR Knee Lt 1-2 Views Comparison Plan: I discussed with the patient, in detail, the different treatment options available to them includingconservative management (rest, ice, oral pain medication, and activity modification) and the risks and benefits of cortisone injection versus visco supplementation. Patient voiced understanding of the i nformation discussed and has elected to proceed with a corticosteroid injection. This was performed as described below. If he is not improved with this, we will plan on scheduling him for an MR of the right knee to evaluate for a meniscus tear. All questions were answered. Follow up as needed. Procedure Right Knee Cortisone Injection Risks, alternatives, and potential benefits were discussed, and the patient consents to proceed witha steroid injection. Using aseptic technique and a betadine prep, the patient underwent a right kneeintra-articular injection from the anterolateral portal site using a 22-gauge needle with 9cc 1% plain Lidocaine and 40mg of triamcinolone. There were no complications with the procedure. The patient tolerated the procedure well and noted immediate relief. Scribe Disclosure: Aba Amaya, am serving as a scribe to document services personally performed by Sanjay Barahona PA-C at this visit, based upon the provider's statements to me. All documentation has been reviewed by the aforementioned provider prior to being entered into the official medical record. Portions of this medical record were completed by a scribe. UPON MY REVIEW AND AUTHENTICATION BY ELECTRONIC SIGNATURE, this confirms (a) I performed the applicable clinical services, and (b) the recordis accurate. Sanjay Barahona PA-C documented in this encounter Plan of Treatment Upcoming Encounters Date Type Specialty Care Team Description 05/29/2022 Appointment Orthopedics Kathi Fry PA-C [address] [place] [address] (Wo rk) documented as of this encounter Results XR Knee Lt 1-2 [...] documented in this encounter Visit Diagnoses Diagnosis Chondrocalcinosis of right knee - Primar y Right knee pain, unspecified chronicity Right knee pain, unspecified chronicity documented in this encounter
--- OUTSIDE RECORDS SUMMARY | 2022-05-14 09:07 | XMS_ITS | Encounter Summary ---
:1950 Author Organization [employer] Address [address], [place] [address] Care Team Providers Name Role Phone Unavailable Primary Care Provider Unavailable Reason for Visit Reason Comments CONSULT Encounter Details Date Type Department Care Team Description 12/28/2012 Surgical Consult [facility] Riley Wilkes Pa in in joint, CENTER ankle and foot [address] [facility] [address] [facility] (Primary Dx) [place] [address] [phone] Social History Tobacco Use Types Packs/Day Years [...] Sign Reading Time Taken Comments Blood Pressure 150/89 12/28/2012 12:34 PM CDT Pulse - - Temperature - - Respiratory Rate - - Oxygen Saturation - - Inhaled Oxygen Concentration - - Weight 136.1 kg (300 lb) 12/28/2012 12:34 PM CDT Height 196.9 cm (6' 5.5) 12/28/2012 12:34 PM CDT Body Mass Index 35.12 12/28/2012 12:34 PM CDT documented in this encounter Patient Instructions Patient InstructionsEstrella Barraza MA - 12/28/2012 1:[address] Riley Wilkes MD Orthopaedic Surgeon/Foot & Ankle Specialist [employer], [facility] Case Management Director: Sarah Lovett Please contact Sarah for all administrative questions at [phone] Nurses: Linsey Tejada RN and Christina Stanton [employer] Please contact Ratna for all medical related questions at [phone] Please contact your Pharmacy for all medication refill requests Your Provider would like you to schedule a Follow as needed with Dr. Wilkes Appointment Scheduling: Can be done at the hotel desk clerk or by calling our main number [phone] documented in this encounter Progress Notes Daigle MD - 12/28/2012 1:56 PM CDT Progress Notes signed by Riley Wilkes MD at 12/31/12 0709 Also signed by Matt Rousseau MD at 01/12/13 832 Author: Matt Rousseau MD Service: (none) Author Type: Resident Filed: 12/31/12 0709 Note Time: 12/28/12 1356 Status: Signed Apprentice/Lineman: Riley Wilkes MD (Physician) NAME: RAIN CENTENO VISIT: [id number] DICTATING CLINICIAN: MATT ROUSSEAU MD JOB: [id number] Med JOB: [id number] LOC: 3711 CLINIC PROGRESS NOTE DATE OF VISIT: 12/28/2012 : 1950 REFERRING PHYSICIAN: Dyllan Teresa MD CHIEF COMPLAINT: Bilateral flatfeet, pes planus. HISTORY OF PRESENT ILLNESS: Briefly, this is a 62-year-old gentleman with bilateral flatfeet. He was diagnosed with this when he was very young. He has been struggling with this for a number of years. At the current time he complains of worsening swelling in his right foot when compared to the left. He does have some occasional pain and discomfort when he is wearing his loafers or shoes without support. He has been using orthotics for this which has been doing well. His orthotics are approximately 2-1/2 years in age now. They wear custom made orthotics specifically made for him. In regards to treatment other than the orthotics she has not had any physical therapy, not had any injections, not had any surgical procedures done. He has been seen by Dr. Birch who has told the patient that he needed a fusion and was prepared to offer him that surgery. At this point in time the patient comes to us for a second opinion. In regards to the activities, he is playing golf. He is able to do most of his ADL's and reactional activities with minimal discomfort. PAST MEDICAL HISTORY: Significant for atrial fibrillation, hypothyroidism and AAA. PAST SURGICAL HISTORY: AAA repair in 2010. FAMILY HISTORY: Significant for heart disease in his mom. No bleeding or clotting, problems with anesthesia. 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 He does not smoke and does drink alcohol frequently. He does exercise weekly. MEDICATIONS: Metoprolol and Synthroid. ADR/ALLERGIES: NONE. REVIEW OF SYSTEMS: A 10 point review of systems negative with the exception of high blood pressure. PHYSICAL EXAM: Height: 77.5 inches. Weight: 300 pounds. Blood Pressure: 150/89. Pain level is 0 to a 1/10. GENERAL: Well-appearing, in no acute distress. CV: Regular rate and rhythm, 2+ peripheral pulses. RESPIRATORY: Unlabored breathing, no active wheezes. NEURO: Alert and appropriate, follows commands x4. PSYCHE: Normal affect. RIGHT LOWER EXTREMITY: The patient has a right pes planus. He has significant callus over the talar head. He is virtually ambulating on the inside of his foot. He is unable to perform a one-legged toe raise. His hindfoot is not flexible. His forefoot is flexible, however, with significant elevation of the 1st ray. Sensation intact to light touch throughout. No open sores. Skin is intact. IMAGING STUDIES: X-rays were independently reviewed. Technique: Three views right foot, 3 views left foot. Findings: On the left foot the patient has collapse of his arch. He does have significant bony spurs and arthritis throughout the midfoot joint. In regards to his right foot, he has virtually no arch remaining. He has significant osteoarthritis of the talonavicular joint. He is basically weightbearing on his navicular bone. Impression: Bilateral pes planus, right worse than left. ASSESSMENT: Bilateral posterior tibialis dysfunction, Stage III to IV, worse on the right compared to the left. ASSESSMENT AND PLAN: A 62-year-old gentleman with bilateral pes planus, right worse than left. At this point the disease has progressed to the point where he would need osteotomies and fusions to correct these deformities. At this point he is minimally symptomatic and is able to function without significant pain with his daily activities and golfing activities. He would like to continue observation. It was discussed today that he will progress at his own pace. It would be an elective surgery should he desire that in the future. PLAN: 1. Custom orthotics for bilateral pes planus. Will need these renewed on a yearly basis. 2. Follow up p.r.n., weightbearing as tolerated, with Dr. Wilkes. Total time 30 minutes of which 20 was spent in counseling time. The patient was seen with and plan of care discussed with Dr. Wilkes who was in agreement with the plan as dictated above. DICTATED BY MATT ROUSSEAU MD FOR RILEY WILKES MD I have personally examined this patient, and have reviewed the clinical presentation and progress note, including the pertinent radiographs, with the resident. I agree with the treatment plan as outlined. The plan was formulated with the resident on the day of the dictation and personally edited by me where appropriate. I personally discussed the treatment plan with the patient. IM: 12/28/2012 02:12:36 pm MT: 18 documented in this encounter Plan of Treatment Upcoming Encounters Date Type Specialty Care Team Description 05/29/2022 Appointment Orthopedics Kathi Fry PA-C [address] [place] [address] (Wo rk) documented as of this encounter Procedures Procedure Name Priority Date/Time Associated Diagnosis Comme nts XR FOOT RT 3+ VIEWS Routine 12/28/2012 1:08 PM Pain in joint, ankle Results for this CDT and foot procedure are i n the results section. XR FOOT LT 3+ VIEWS Routine 12/28/2012 1:08 PM Pain in joint, ankle Results for this CDT and foot procedure are i n the results section. documented in this encounter Results XR Foot Rt 3+ Views (12/28/2012 1:08 PM CDT) Anatomical Region Laterality Modality Lower Extremity, Foot Other Specimen (Source) Anatomical Location Collection Method / Collectio n Time Received Time / Laterality Volume Impressions 01/05/2013 10:44 AM CDT Impression: ??Bilateral pes planus, right worse than left. ?? FAP/sja Narrative 01/05/2013 10:44 AM CDT Technique: ??Three views right foot, 3 v iews left foot. Findings: ??On the left foot the patient has collapse of his arch. ??He does have significant bony spurs and art hritis throughout the midfoot joint. ??In regards to his right foot, h e has virtually no arch remaining. ??He has significant osteoart hritis of the talonavicular joint. ??He is basically weightbearing o n his navicular bone. ?? Procedure Note Riley Wilkes MD - 03/16/2016Formatt ing of this note might be different from the original. Technique: Three views right foot, 3 vie ws left foot. Findings: On the left foot the patient h as collapse of his arch. He does have significant bony spurs and art hritis throughout the midfoot joint. In regards to his right foot, he has virtually no arch remaining. He has significant osteoarthr itis of the talonavicular joint. He is basically weightbearing on his navicular bone. IMPRESSION Impression: Bilateral pes planus, right worse than left. FAP/sja Riley Wilkes MD RAD GD XR Foot Lt 3+ Views (12/28/2012 1:08 PM CDT) Anatomical Region Laterality Modality Lower Extremity, Foot Other Specimen (Source) Anatomical Location Collection Method / Collectio n Time Received Time / Laterality Volume Impressions 01/05/2013 10:44 AM CDT Impression: ??Bilateral pes planus, right worse than left. ?? FAP/sja Narrative 01/05/2013 10:44 AM CDT Technique: ??Three views right foot, 3 v iews left foot. Findings: ??On the left foot the patient has collapse of his arch. ??He does have significant bony spurs and art hritis throughout the midfoot joint. ??In regards to his right foot, h e has virtually no arch remaining. ??He has significant osteoart hritis of the talonavicular joint. ??He is basically weightbearing o n his navicular bone. ?? Procedure Note Riley Wilkes MD - 03/16/2016Formatt ing of this note might be different from the original. Technique: Three views right foot, 3 vie ws left foot. Findings: On the left foot the patient h as collapse of his arch. He does have significant bony spurs and art hritis throughout the midfoot joint. In regards to his right foot, he has virtually no arch remaining. He has significant osteoarthr itis of the talonavicular joint. He is basically weightbearing on his navicular bone. IMPRESSION Impression: Bilateral pes planus, right worse than left. FAP/sja Riley Wilkes MD RAD GD documented in this encounter Visit Diagnoses Diagnosis Pain in joint, ankle and foot - Primary documented in this encounter
[2022-05-14 13:42] LABS: Chloride* 101 mmol/L (96-114); Potassium* 4.5 mmol/L (3.6-5.1); Sodium* 140 mmol/L (135-149)
[2022-05-14 13:45] LABS: Blood Urea Nitrogen* 30 mg/dL (7-30); Carbon Dioxide* 31 mmol/L (20-32); Cholesterol* 157 mg/dL (90-199); Creatinine* 0.8 mg/dL (0.5-1.5); Estimated Glomerular Filt Rate 95 ml/min; Glucose* 113 mg/dL (60-115); Triglycerides* 59 mg/dL (40-149)
[2022-05-14 13:46] LABS: Calcium* 8.8 mg/dL (8.4-10.6); HDL Cholesterol* 68 mg/dL (>=40); LDL Cholesterol Calculated 77 mg/dL (<100)
[2022-05-14 14:11] LABS: PSA Screen* 0.41 ng/mL (0.10-4.00)
== END 2022-05-14 09:01 | disposition home or self-care (01) ==
PROVIDERS: PCP Family Medicine; Visit Provider Family Medicine
DX: I10 Essential (primary) hypertension (principal); E03.9 Hypothyroidism, unspecified; E11.9 Type 2 diabetes mellitus without complications; Z12.5 Encounter for screening for malignant neoplasm of prostate
CPT/HCPCS: 80048; 80061; 84153; 84443

== ENCOUNTER 2022-06-17 14:37 | Outpatient (CLI) | payer MEDICARE, BC, SELFPAY ==
--- OUTSIDE RECORDS SUMMARY | 2022-06-17 14:40 | XMS_ITS | Clinical Summary ---
:1950 Author Organization [facility] [place] [address] Care Team Providers Name Role Phone Aba Boo MD Primary Care Provider [phone] Destin Johnston MD Unavailable Nurses, Advanced Heart Failure Unavailable [phone] Allergies Active Allergy Reactions Severity Noted Date Comments Penicillins *Unknown 12/07/2013 Medications Medication Sig Dispensed Refills Start Date End Date Status acyclovir (ZOVIRAX) 5 Apply topically 30 g 12 02/05/2018 Active % ointmentIndications: to affected Herpes labialis area(s) 6 times daily. PRN levothyroxine TAKE 2 TABLETS 60 tablet 0 06/24/2019 Active (SYNTHROID) 112 mcg BY MOUTH BEFORE tabletIndications: BREAKFAST Hypothyroidism, unspecified type acetaminophen (TYLENOL Take 2 tablets 0 08/02/2020 Active EXTRA STRGTH) 500 mg by mouth every 6 tablet hours if needed. furosemide (LASIX) 20 TAKE 1 TABLET BY 90 tablet 0 08/02/2020 Active mg tabletIndications: MOUTH DAILY Chronic systolic heart NEEDED FOR failure (HC) WEIGHT GAIN OF 3LBS IN 1 DAY OR 5LBS IN 1 WEEK. rOPINIRole (REQUIP) 4 Take 1 Tablet (4 0 07/04/2021 Active mg tablet mg) by mouth at bedtime. PRN spironolactone Take 0.5 Tablets 45 tablet. 3 11/30/2021 Active (ALDACTONE) 25 mg (12.5 mg) by tabletIndications: mouth once Hypertension, daily. unspecified type ENTRESTO 49 MG-51 MG TAKE 1 TABLET BY 180 Tablet 3 02/01/2022 Active TABLET 49-51 mg MOUTH TWICE A tabletIndications: DAY Chronic systolic heart failure (HC) rivaroxaban (Xarelto) Take 1 Tablet 90 Tablet 3 03/07/2022 Active 20 mg (20 mg) by mouth tabletIndications: once daily with Atrial fibrillation, evening meal. unspecified type (HC) sotaloL (BETAPACE) 120 Take 1 Tablet 180 tablet. 3 03/07/2022 Active mg tabletIndications: (120 mg) by Paroxysmal atrial mouth every 12 fibrillation (HC) hours. empagliflozin Take 1 Tablet 90 Tablet 2 03/19/2022 A ctive (Jardiance) 10 mg (10 mg) by mouth tabletIndications: once daily. Chronic systolic heart failure (HC) Active Problems Problem Noted Date ICD (implantable cardioverter-defibrillator) 08/03/2019 08/04/2019 History of aortic root repair 07/08/2019 Hypertension 12/03/2015 S/P Maze operation for atrial fibrillation 10/15/2011 ACP (advance care planning) 09/10/2011 Overview: Patient has identified Health Care Agent (s): No Add Health Care Agents: No Patient has Advance Care Plan Documents (Health Care Directive, POLST): No, spouse refused. Stated they know what eachothers wishes are and do not want to put in writing. Patient has identified Specific Treatmen t Preferences: No Specific limits to treatment preferences NOT identified: ASSUME FULL TREATMENT. Per pt his spouse and dtr would be prima ry and secondary concerned persons: Spouse Alexus Petty [phone]/ Daughter Zuri [phone] Hypothyroidism 09/10/2011 Atrial fibrillation Overview: - 07/31/11: s/p DCCV - 09/09/11: Left MAZE with ligation of L AA *post op afib treated with short term a nticoagulation -12/06/2013 recurrent atrial fibrillation with ventricular rate 122bpm Ascending aorta dilation Overview: -09/09/11: S/p Aortic Valve Sparing Root Repair with a 34 mm Valsalva Graft and Left Sided MAZE with Ligation of Left Atrial Appendage by Dr. Ashton. Hypothyroidism Resolved Problems Problem Noted Date Resolved Date shelter (current) use of anticoagulants 09/18/2011 12/03/2015 Osteoarth NOS-ankle 04/22/2007 12/03/2015 Hypertension (HTN) 12/03/2015 A-fib 07/03/2011 Overview: controlled on diltiazem Ascending aorta dilatation 09/25/2014 Overview: 09/09/11: S/p Aortic Valve Sparing Root Repair with a 34 mm Valsalva Graft and Left Sided MAZE with Ligation of Left Atrial Appendage by Dr. Ashton. Encounters Date Type Specialty Care Team Description 06/11/2022 Office Visit Destin Johnston, CV Gen eral Cardiology Est ([phone]) 06/10/2022 Orders Only Lab 06/10/2022 Travel 05/21/2022 Refill Destin Johnston, Refill Request 04/29/2022 Telephone Aba Boo, Error -please disregard (DISREGARD) from Last 3 Months Immunizations Name Administration Dates Next Due Influenza, IIV3 (Age >=3 years) 06/24/2013 Pneumococcal Poly,23-Valent (Pneumovax) 11/28/2015 Zoster (Zostavax-ZVL, live) 06/24/2013 Family History Medical History Relation Name Comments Diabetes Mother Diabetes Son Relation Name Status Comments Mother Son Social History Tobacco Use Types Packs/Day Years Used Date Former Smoker Cigarettes 1 15 Quit: 09/29/18 96 Smokeless Tobacco: Never Used Tobacco Cessation: Counseling Given: Yes Alcohol Use Standard Drinks/Week Comments Yes 0 (1 standard drink = 0.6 oz pure alcoho l) Social Alcohol Habits Answer Date Recorded How often do you have a drink containing alcohol? Monthly or less 04/14/2020 How many drinks containing alcohol do you have on a 1 or 2 08/02/2020 typical day when you are drinking? How often do you have six or more drinks on one Not asked occasion? Comment: Social 12/03/2015 Sex Assigned at Date Recorded Not on file COVID-19 Exposure Response Date Recorded In the last 10 days, have you been in contact with No / Unsu re 06/10/2022 8:45 AM CDT someone who was confirmed or suspected to have Coronavirus/COVID-19? Obstetrics History Last Filed Vital Signs Vital Sign Reading Time Taken Comments Blood Pressure 130/80 03/07/2022 10:53 AM CDT Pulse 61 03/07/2022 10:53 AM CDT Temperature 36.4 ??C (97.6 ??F) 04/10/2020 2:00 PM CDT Respiratory Rate 16 04/10/2020 2:00 PM CDT Oxygen Saturation 96% 03/07/2022 10:53 AM CDT Inhaled Oxygen Concentration - - Weight 139.3 kg (307 lb) 06/11/2022 7:46 AM CDT Height 198.1 cm (6' 5.99) 03/07/2022 10:53 AM CDT Body Mass Index 35.49 03/07/2022 10:53 AM CDT Plan of Treatment Upcoming Encounters Date Type Specialty Care Team Description 06/17/2022 Orders Only 09/19/2022 Cardiac Device Check Health Maintenance Due Date Last Done Comments Tdap 1961 Hepatitis C screening for age 0906/22/1968 18-79 Tetanus booster 1970 AAA screening age 55-77 2005 Zoster (shingles) series for age 1108/19/2013 06/24/2013 50+ (2 of 3) Colonoscopy through age 75 08/07/2016 08/07/2006 (Completed outside of [facility]) Medicare Wellness for age 65+ 11/27/2016 11/28/2015 Pneumococcal series for age 65+ (2 11/27/2016 11/28/2015 - PCV) Depression screening for age 12+ 12/08/2019 12/07/2018, 09/2015 COVID-19 vaccine series (2 - 07/18/2021 06/27/2021 Pfizer series) Influenza for age 65+ 05/30/2022 06/24/2013 Lipids for age 45-75 01/07/2023 01/07/2018, 03/03/2017, 11/28/2015, Additional history exists BMI (ht and wt on same day) for 03/07/2023 03/07/2022, 10/0 02/2021, age 18+ 02/22/2021, Additional history exists Medical Devices Implanted Type Area Manager Web Application Device Shelf Model / Identifier Expiration Date Ser ial / Lot Graft Valsalva 34mm - [id number] [employer] [id number] / Implanted: Qty: 1 on 09/09/2011 at [facility] / Procedures Procedure Name Priority Date/Time Associated Comments Diagnosis HEPATIC FUNCTION Routine 06/10/2022 8:53 AM Chronic systolic R esults for this PANEL CDT heart failure (HC) procedure are in the results section. CBC W PLT NO DIFF Routine 06/10/2022 8:53 AM Chronic systolic Results for this CDT heart failure (HC) procedure are in the results section. BRAIN NATRIURETIC Routine 06/10/2022 8:53 AM Chronic systolic Results for this PEPTIDE CDT heart failure (HC) procedure are in the results section. BASIC METABOLIC PANEL Routine 06/10/2022 8:53 AM Chronic systo lic Results for this CDT heart failure (HC) procedure are in the results section. from Last 3 Months Results (ABNORMAL) BRAIN NATRIURETIC PEPTIDE (06/10/2022 8:53 AM CDT) P athologist Signature BRAIN АННА 313 (H) <100 pg/mL 06/10/2022 [facility] PEPTIDE 5:00 PM CDT [facility] Specimen Anatomical Collection Method / Collection Time Recei salud Time (Source) Location / Volume Laterality Blood BLOOD SPECIMEN / Venipuncture / 06/10/2022 8:53 2021 8:54 Unknown Unknown AM CDT AM CDT Destin Johnston MD CHEMISTRY Performing Organization Address City/State/ZIP Code Phon e Number [facility] [address] [place] [address] LABORATORY-CENTRAL 1999 LABORATORY (ABNORMAL) CBC W PLT NO DIFF (06/10/2022 8:53 AM CDT) Analysis Performed At Patho logist Time Signature WHITE BLOOD 9.0 4.5 - 11.0 06/10/2022 [facility] COUNT thou/cu mm 8:57 AM CDT [facility] RED BLOOD COUNT 4.97 4.30 - 06/10/2022 [facility] 5.90 8:57 AM CDT [place] mil/cu mm CLINIC HEMOGLOBIN 15.6 13.5 - 06/10/2022 [facility] 17.5 g/dL 8:57 AM CDT [facility] HEMATOCRIT 48.9 37.0 - 06/10/2022 [facility] 53.0 % 8:57 AM T [facility] MCV 98 80 - 100 06/10/2022 [facility] 8:57 AM CDT [facility] MCH 31.4 26.0 - 06/10/2022 [facility] 34.0 pg 8:57 AM CDT [facility] MCHC 31.9 (L) 32.0 - 06/10/2022 [facility] 36.0 g/dL 8:57 AM CDT [facility] RDW 15.6 (H) 11.5 - 06/10/2022 [facility] 15.5 % 8:57 AM T [facility] PLATELET COUNT 165 140 - 440 [facility] MPV 9.0 6.5 - 11.0 06/10/2022 [facility] 8:57 AM CDT [facility] Specimen Anatomical Collection Method / Collection Time Recei salud Time (Source) Location / Volume Laterality Blood BLOOD SPECIMEN / Venipuncture / 06/10/2022 8:53 2021 8:54 Unknown Unknown AM CDT AM CDT Narrative [facility] - 022 8:57 AM CDT This procedure was originally ordered at [facility] [place]. Destin Johnston MD HEMATOLOGY Performing Organization Address City/State/ZIP Code Phon e Number [facility] [address] [place], [place] [address] [facility] [address] [place], [place] [id number] HEPATIC FUNCTION PANEL (06/10/2022 8:53 AM CDT) P athologist Signature ALBUMIN 3.9 3.2 - 4.6 06/10/2022 [facility] g/dL 10:34 PM CDT [facility] PROTEIN,TOTAL 6.5 6.0 - 8.0 06/10/2022 [facility] g/dL 10:34 PM CDT [facility] GLOBULIN 2.6 2.0 - 3.7 06/10/2022 [facility] g/dL 10:34 PM CDT [facility] A/G RATIO 1.5 1.0 - 2.0 06/10/2022 [facility] 10:34 PM CDT [facility] BILIRUBIN,TOTAL 0.6 0.2 - 1.2 06/10/2022 [facility] mg/dL 10:34 PM CDT [facility] BILIRUBIN,DIRECT 0.3 0.1 - 0.5 06/10/2022 [facility] mg/dL 10:34 PM CDT [facility] BILIRUBIN,INDIRE 0.3 0.2 - 0.8 06/10/[address] [facility] [address] mg/dL 10:34 PM CDT [facility] ALK PHOSPHATASE 98 50 - 136 06/10/2022 [facility] IU/L 10:34 PM CDT [facility] ALT (SGPT) 24 8 - 45 06/10/2022 [facility] IU/L 10:34 PM CDT [facility] AST (SGOT) 23 2 - 40 06/10/2022 [facility] IU/L 10:34 PM CDT [facility] Specimen Anatomical Collection Method / Collection Time Recei salud Time (Source) Location / Volume Laterality Blood BLOOD SPECIMEN / Venipuncture / 06/10/2022 8:53 2021 8:54 Unknown Unknown AM CDT AM CDT Destin Johnston MD CHEMISTRY Performing Organization Address City/State/ZIP Code Phon e Number [facility] [address] [place] [address] LABORATORY-CENTRAL 2000 LABORATORY (ABNORMAL) BASIC METABOLIC PANEL (06/10/2022 8:53 AM CDT) P athologist Signature SODIUM 141 135 - 145 06/10/2022 [facility] mmol/L 10:32 PM CDT [facility] POTASSIUM 4.4 3.5 - 5.0 06/10/2022 [facility] mmol/L 10:32 PM CDT [facility] CHLORIDE 102 98 - 110 06/10/2022 [facility] mmol/L 10:32 PM CDT [facility] CO2,TOTAL 31 21 - 31 06/10/2022 [facility] mmol/L 10:32 PM CDT [facility] ANION GAP 8 5 - 18 06/10/2022 [facility] 10:32 PM CDT [facility] GLUCOSE 92 65 - 100 06/10/2022 [facility] mg/dL 10:32 PM CDT [facility] CALCIUM 9.1 8.5 - 10.5 06/10/2022 [facility] mg/dL 10:32 PM CDT [facility] BUN 23 8 - 25 06/10/2022 [facility] mg/dL 10:32 PM CDT [facility] CREATININE 0.92 0.72 - 06/10/2022 [facility] 1.25 mg/dL 10:32 PM CDT [facility] BUN/CREAT RATIO 25 (H) 10 - 20 06/10/2022 [facility] 10:32 PM CDT [facility] eGFR 89 (L) >90 06/10/2022 [facility] mL/min/1.7 10:32 PM CDT [facility] 3m2 TRAL LABORATORY Comment: As of 2021, eGFR is calcu lated by the CKD-EPI creatinine equation without race adjustment. eGFR can be inf luenced by muscle mass, exercise, and diet. The reported eGFR is an estimation only and is only applicable if the renal function is stable. Specimen Anatomical Collection Method / Collection Time Recei salud Time (Source) Location / Volume Laterality Blood BLOOD SPECIMEN / Venipuncture / 06/10/2022 8:53 2021 8:54 Unknown Unknown AM CDT AM CDT Destin Johnston MD CHEMISTRY Performing Organization Address City/State/ZIP Code Phon e Number [facility] [address] [place] [address] LABORATORY-CENTRAL 2000 LABORATORY from Last 3 Months Insurance Payer Benefit Plan / Subscriber ID Effective Dates Phone Addre ss Type Group MEDICARE PART A MEDICARE PART A [id number] 2015-[employer] ATTN: CLAIMS - HB USE ONLY HB ONLY t [address] [place] [address] MEDICARE PART B MEDICARE PART B [id number] 2015-Prese ATTN: CLAIMS - HB USE ONLY HB ONLY nt [address] [place] [address] MEDICARE PART B MEDICARE PART B [id number] 2015-Prese ATTN: CLAIMS - HB USE ONLY HB ONLY nt [address] [place] [address] MEDICARE MEDICARE [id number] 2015-Prese [address] [place] [address] BLUE CROSS MR BLUE CROSS [id number] 2016-Presen [address] [address] [place], [place] ONLY [id number] BLUE CROSS BLUE CROSS [id number] 2016-[place]en [address] [place], [place] [id number] BLUE CROSS MR MR BC [place] [id number] 2015-Presen [address] [place] [address] BLUE CROSS BLUE CROSS OF [id number] 2016-Presen [address] [place] [address] Merrick Petty Sr. Personal/Famil Self 1950 [address] [place] [address] Merrick Petty Sr. Personal/Famil Self 1950 [address] [address] Advance Directives Latest Code Status on File Code Status Date Activated Date Inactivated Comments Full Code 04/10/2020 1:04 PM 04/10/2020 4:08 PM Full Code 03/18/2014 7:47 AM 03/18/2014 2:35 PM Full Code 12/07/2013 9:35 AM 12/07/2013 3:59 PM Full Code 09/09/2011 5:56 AM 09/19/2011 4:11 PM Full Code 09/02/2011 10:44 AM 09/02/2011 5:14 PM Care Teams Carbide Tool Die Maker Relationship Specialty Start Date End Date Aba Boo PCP - General Family Practice 11/18/19 MD [address] [place] [address] Destin Johnston, Cardiology - CHF Cardiovascular Disease MD [address] [place] [phone] Nurses, Advanced Advanced Heart 04/14/20 Heart Failure Failure/Transplant Card [address] [place] [id number]
--- OUTSIDE RECORDS SUMMARY | 2022-06-17 14:41 | XMS_ITS | Encounter Summary ---
:1950 Author Organization [facility] Address [address], [place] [address] Care Team Providers Name Role Phone Non Pn, Clinician MD Primary Care Provider Unavailable Reason for Visit Reason Comments QUESTIONS, GENERAL New RX for pain Encounter Details Date Type Department Care Team Description 06/27/2020 Telephone TRIA Sanjay Jenkins MD [facility] GENERAL CENTER [address] [facility] (New RX for pain) [address] [place], [place] [phone] (Wo rk) Social History Tobacco Use Types [...] been seen for this recently?: Yes 06/27/20 [[employer] Appliance [employer]ic/Appt Center: If yes, please include date and provider.] Is it okay to leave detailed message on your voicemail? Yes [Gas Appliance Mechanic/Appt Center: If this call is after 3 p.m., communicate to patient: If we are not able to get back to you by the end of the day and your symptoms worsen please contact the Careline] documented in this encounter Plan of Treatment Not on filedocumented as of this encounter Visit Diagnoses Not on filedocumented in this encounter Care Teams Throw Out Clerk Relationship Specialty Start Date End Date Non Pn, Clinician, PCP - General 06/23/20 [place] [address] documented as of this encounter
--- OUTSIDE RECORDS SUMMARY | 2022-06-17 14:41 | XMS_ITS | Encounter Summary ---
:1950 Author Organization [facility] Address [address] [address] Care Team Providers Name Role Phone Non Pn, Clinician MD Primary Care Provider Unavailable Reason for Referral Procedure/Equipment (Routine) - Incomplete Specialty Diagnoses / Procedures Referred By Contact Refer red To Contact Diagnoses Left hip pain Tra Remy MD Procedures [place] Injection Hip Lt [address] [place] [address] Referral ID Status Reason Start Date Expiration Date Visits V isits Requested Authorized [id number] Incomplete 05/21/2022 08/20/2023 1 1 Procedure/Equipment (Routine) - Incomplete Specialty Diagnoses / Procedures Referred By Contact Refer red To Contact Diagnoses Left hip pain Tra Remy MD Procedures XR Hip Lt 2 Views [address] [place] [address] Referral ID Status Reason Start Date Expiration Date Visits V isits Requested Authorized [id number] Incomplete 05/21/2022 08/20/2023 1 1 Procedure/Equipment (Routine) - Incomplete Specialty Diagnoses / Procedures Referred By Contact Refer red To Contact Diagnoses Left hip pain Tra Remy MD Procedures XR Pelvis 1-2 Views [address] [place] [address] Referral ID Status Reason Start Date Expiration Date Visits V isits Requested Authorized [id number] Incomplete 05/21/2022 08/20/2023 1 1 Reason for Visit Reason Comments CONSULT Left Hip Encounter Details Date Type Department Care Team Description 05/21/2022 Office Visit [facility] Tra Remy, Left h pain CENTER (Primary Dx) [address] [place] [address] [place] [phone] (Wo rk) Social History Tobacco Use Types [...] - Inhaled Oxygen Concentration - - Weight 133.8 kg (295 lb) 05/21/2022 2:09 PM CDT Height 198.1 cm (6' 6) 05/21/2022 2:09 PM CDT Body Mass Index 34.09 05/21/2022 2:09 PM CDT documented in this encounter Patient Instructions Patient InstructionsEstrella Barraza MA - 05/21/2022 2:00 PM CDT Thank you for Choosing [facility] for your health care visit today. Dr. Tra Remy MD Orthopaedic Surgeon Medication Requests: Prescriptions are not filled on weekends or on weekdays after 3:00 PM. For all medication refills: Request a refill using [employer] or contact your pharmacy. What is Know Your Cost? Know Your Cost is a service for patients and patient/members to call and receive personalized cost information and estimates across our care group. The phone number is (COST) Friday - Friday 8 AM to 5 PM Advanced Imaging Scheduling: To schedule an MRI, Ultrasound, or Image guided injection at [facility] please call [phone]. To schedule an MRI or CT at a [facility] please call [phone]. [facility] Workers' Compensation [address] [place] [address] (Phone) Email: [email or web address] Release of Information: Radiology/Imaging [address] [place] [address] (Phone) Health Information Management [address] [place] [address] (Phone) [employer] documented in this encounter Progress Notes Tra Remy MD - 05/21/2022 2:00 PM CDT Merrick Petty Age: 71 y.o. Date of : 1950 History of Present Illness: Merrick is a very pleasant 71-year-old man with a history of left hip pain. The patient localizes the pain to the buttock. He notes the pain started few months ago. The pain also radiates to his lower back and more recently has been radiating down his leg. He has a history of back injections few years back. Over the last couple months, the pain in the buttock has caused him to walk with a limp. He has not done any formal treatment for this. He notes that the pain is worse with walking, stairs, activity. He was also spending the winter in [place] and was having back pain. MRI was obtained at that point he was going to do some physical therapy for his back. Fortunately, the symptoms improved. He notesthat the symptoms he was having at that point were quite different than the symptoms he is now having in his buttock. Past Medical History: Past Medical History: Diagnosis Date Atrial fibrillation (HRC) Hypertension (HRC) Hypothyroid (HRC) 12/14/2018 ICD (implantable cardioverter defibrillator) pocket hematoma (HRC) Primary osteoarthritis of left knee 03/15/2020 severe lateral (R > L) mild PF (L > R) Status post total right knee replacement 06/15/[address] Murrieta at [facility]. Past Surgical History: Past Surgical History: Procedure Laterality Date TOTAL KNEE ARTHROPLASTY Right 06/15/[address] Murrieta at [facility]. Social History: Social History Socioeconomic History Marital status: Spouse name: Not on file Number of children: Not on file Years of education: Not on file Highest education level: Not on file Occupational History Not on file Tobacco Use Smoking status: Never Smokeless tobacco: Never Vaping Use Vaping Use: Never used Substance and Sexual Activity Alcohol use: Not on file Comment: occ Drug use: Not on file Sexual activity: Not on file Other Topics Concern Not on file Social History Narrative Not on file Social Determinants of Health Financial Resource Strain: Not on file Food Insecurity: Not on file Transportation Needs: Not on file Physical Activity: Not on file Intimate Partner Violence: Not on file Housing Stability: Not on file Family History: No family history on file. Medications: Outpatient Medications Prior to Visit Medication Sig Dispense Refill amoxicillin (AMOXIL) 500 MG capsule Take 4 capsules by mouth 1 hour prior to dental work. Indications: Treatment to Prevent Infection in Prosthetic Arthroplasty 20 Capsule 0 levothyroxine (SYNTHROID) 200 MCG tablet Take 1 Tablet by mouth daily. rivaroxaban (XARELTO) 10 MG tablet Take 1 Tablet by mouth every evening with a meal for 5 days. Indications: Thrombosis prevention following orthopedic surgery. 5 Tablet 0 rOPINIRole (REQUIP) 1 MG tablet Take 1 mg by mouth daily at bedtime. sacubitril-valsartan (ENTRESTO) 97-103 MG tablet Take 1 Tablet by mouth two times a day. sotalol (BETAPACE) 120 MG tablet Take 120 mg by mouth two times a day. Indications: Atrial Fibrillation spironolactone (ALDACTONE) 25 MG tablet Take 12.5 mg by mouth daily. Indications: High Blood Pressure Disorder No facility-administered medications prior to visit. Physical Exam: EXAMINATION pertinent findings: VITAL SIGNS: Height 1.981 m (6' 6), weight 133.8 kg (295 lb). Estimated body mass index is 34.09 kg/m?? as calculated from the following: Height as of this encounter: 1.981 m (6' 6). Weight as of this encounter: 133.8 kg (295 lb). GEN: AOx3, cooperative PSYCH: appropriate mood and affect HEENT: normocephalic, atraumatic RESP: non labored breathing ABD: benign SKIN: No rashes or open lesions CV: Perfused extremities NEURO: alert, CN2-12 grossly intact MUSCULOSKELETAL: He walks with an antalgic gait. He has some pain with lumbar extension. He has some pain with hip flexion and internal rotation that reproduces an localizes to his lower back, does not specifically reproduces baseline symptoms. His motion is from 0-90 with 20?? internal rotation, 40?? of external rotation. He has no lateral hip tenderness palpation. He has 4-5 abductor strength limited by pain in hisbuttock. Data: Imaging: X-rays demonstrate mild degenerative changes of his left hip. Assessment and Plan: Merrick Petty is a 71 y.o. male with left buttock and hip pain. Symptoms are relatively recent in onset. I had a long discussion with him regarding possible etiologies including pain from his back versus his hip joint versus the muscles around his hip. He does seem to have some pain with flexion and internal rotation. I think it be useful to pursue a intra-articular hip injection as both a diagnosticand potentially therapeutic option. He notes that he had good pain relief with knee injections in the past. He was interested in pursuing that. He also has a visit to see Kathi Fry and he will pursue that with the information that he has from his hip injections be helpful to sort out whether not the symptoms could be coming from his back or his hip as well. He will let us know if he has any questions or concerns in the meantime will keep close track of his symptoms following the hip injection. Tra Remy M.D. [facility] Department of Orthopaedic Surgery, [email or web address] [phone] (pager) documented in this encounter Plan of Treatment Not on filedocumented as of this encounter Results FL Injection Hip Lt (05/22/2022 7:56 AM CDT) Anatomical Region Laterality Modality Lower Extremity, Hip Radiographic Imagin g Specimen (Source) Anatomical Collection Method Collection Time Re ceived Time Location / / Volume Laterality 05/22/2022 7:33 AM CDT Impressions 05/22/2022 8:48 AM CDT FINDINGS: The procedure, goals, risks and benefits of the procedure were discussed with the patient, who gave full written and verbal consent to proceed. The location of the procedure was confirmed, the skin initialed, and pause for cause per formed. Using sterile technique, local anesthesia and fluoroscopic guidance a 22 gauge needle was advanced into the left hip joint. Intraarticular location of the needle tip was confirmed with the injec tion of 1 mL of Isovue. Subsequently, 40 mg of triamcinolone (40 mg/mL), and 5 mL ropivacaine 0.5% was administered without complication. The patient rated their pain as a 4-5/10 prior to the injection, and 0/10 immediately following the injection. Procedure Note Ele Clifford PA-C - 05/22/2022Formatt ing of this note might be different from the original. IMPRESSION FINDINGS: The procedure, goals, risks an d benefits of the procedure were discussed with the patient, who gave full written and verbal consent to proceed. The location of the procedure was confirmed, the skin initialed, and pause for cause performed. Using shane rile technique, local anesthesia and fluoroscopic guidance a 22 gauge needle was advanced into the left hip joint. Intraarticular location of the needle tip was confirmed with the injection of 1 mL of Isovue. Subsequentl y, 40 mg of triamcinolone (40 mg/mL), and 5 mL ropivacaine 0.5% was administered without complication. The patient rated their pain as a 4-5/10 prior to the injection, and 0/10 immediately following the injection. Tra Remy MD RAD FL XR Hip Lt 2 Views (05/21/2022 2:24 PM CDT) Anatomical Region Laterality Modality Pelvis, Hip Digital Radiography Specimen (Source) Anatomical Collection Method Collection Time Re ceived Time Location / / Volume Laterality 05/21/2022 2:24 PM CDT Impressions 05/21/2022 3:34 PM CDT COMPARISON: ??None. FINDINGS: ??Bone detail is suboptimal. N o definite fracture identified. There are mild right and ticl-hq-xcpigjuw left degenerative changes in the hips. Procedure Note Vidal Issa MD - 05/21/2022Forma tting of this note might be different from the original. IMPRESSION COMPARISON: None. FINDINGS: Bone detail is suboptimal. No definite fracture identified. There are mild right and fmyg-mg-tfslsvmg left degenerative changes in the hips. Tra Remy MD RAD GD XR Pelvis 1-2 Views (05/21/2022 2:24 PM CDT) Anatomical Region Laterality Modality Pelvis Digital Radiography Specimen (Source) Anatomical Collection Method Collection Time Re ceived Time Location / / Volume Laterality 05/21/2022 2:24 PM CDT Impressions 05/21/2022 3:34 PM CDT COMPARISON: ??None. FINDINGS: ??Bone detail is suboptimal. N o definite fracture identified. There are mild right and wctg-eo-lufmelia left degenerative changes in the hips. Procedure Note Vidal Issa MD - 05/21/2022Forma tting of this note might be different from the original. IMPRESSION COMPARISON: None. FINDINGS: Bone detail is suboptimal. No definite fracture identified. There are mild right and ober-oq-vlzcrzsy left degenerative changes in the hips. Tra Remy MD RAD GD documented in this encounter Visit Diagnoses Diagnosis Left hip pain - Primary Pain in joint, pelvic region and thigh Left hip pain Pain in joint, pelvic region and thigh Left hip pain Pain in joint, pelvic region and thigh documented in this encounter Care Teams Director Of Partnerships Relationship Specialty Start Date End Date Non Pn, Clinician, PCP - General 06/23/20 [place] [address] documented as of this encounter
--- OUTSIDE RECORDS SUMMARY | 2022-06-17 14:41 | XMS_ITS | Encounter Summary ---
:1950 Author Organization [facility] Address [address] [place] [address] Care Team Providers Name Role Phone Non Pn, Clinician Primary Care Provider Unavailable Reason for Referral Procedure/Equipment (Routine) - Incomplete Specialty Diagnoses / Procedures Referred By Contact Refer red To Contact Diagnoses Pain, joint, ankle and foot, left Riley Wilkes MD Procedures XR Foot Lt 3+ Views [address] [place] [address] Referral ID Status Reason Start Date Expiration Date Visits V isits Requested Authorized [id number] Incomplete 02/05/2021 05/07/2022 1 1 Reason for Visit Reason Comments Foot Pain left foot Encounter Details Date Type Department Care Team Description 02/05/2021 Office Visit [facility] Riley Wilkes, Pain, joint, ankle and foot, right (Primary Dx); CENTER Pain, joint, ankle and foot, left [address] [place] [address] [place] [phone] (Wo rk) Social History Tobacco Use Types [...] Wilkes MD Orthopaedic Surgeon/Foot & Ankle Specialist Events Assistant, [facility] Medication Requests: Prescriptions are not filled on weekends or on weekdays after 3:00 PM documented in this encounter Progress Notes Riley Wilkes MD - 02/05/2021 12:00 AM CDT NAME: RAIN CENTENO CSN: [id number] CLINIC NOTE DATE OF SERVICE: 02/05/2021 : [...] foot obtained today in clinic with accession #[id number] were independently reviewed in the office and with the patient. These reveal pes planus. He has significant joint space narrowing of the 1st, 2nd, and 3rd tarsometatarsal joints with tfxy-ms-slzd articulation at the 1st TMT joint, along [...] ZAMBRANO PA-C Staff: Riley Wilkes MD JAW/AQS /[id number] documented in this encounter Plan of Treatment Not on filedocumented as of this encounter Results XR Foot [...] 1st, 2nd, and 3rd tarsometatarsal joints with xuen-le-gnkk articulation at the 1st TMT joint, along [...] left documented in this encounter Care Teams Sales Representative Electric Service Relationship Specialty Start Date End Date Non Pn, Clinician, PCP - General 06/23/20 [place] [address] documented as of this encounter
--- OUTSIDE RECORDS SUMMARY | 2022-06-17 14:41 | XMS_ITS | Encounter Summary ---
:1950 Author Organization [employer] Address [address] [address] [address] Care Team Providers Name Role Phone Non Pn, Clinician MD Primary Care Provider Unavailable Reason for Visit Procedure/Equipment (Routine) - Incomplete Specialty Diagnoses / Procedures Referred By Contact Refer red To Contact Diagnoses Left hip pain Tra Remy MD Procedures XR Pelvis 1-2 Views [address] [facility] [place] [address] Referral ID Status Reason Start Date Expiration Date Visits V isits Requested Authorized [id number] Incomplete 05/21/2022 08/20/2023 1 1 Encounter Details Date Type Department Care Team Description 05/21/2022 Ancillary Procedure [facility] Tra Remy, Left hip pain [address] [facility] [place] [address] [address] [facility] [phone] [facility] [place] [address] (Wo rk) Social History Tobacco Use Types [...] as of this encounter Plan of Treatment Not on filedocumented as of this encounter Procedures Procedure Name Priority Date/Time Associated Diagnosis Comme nts XR PELVIS 1-2 VIEWS Routine 05/21/2022 2:24 PM Left hip pain R esults for this CDT procedure are i n the results section. XR HIP LT 2 VIEWS Routine 05/21/2022 2:24 PM Left hip pain Res ults for this CDT procedure are i n the results section. documented in this encounter Results XR Hip Lt 2 Views (05/21/2022 2:24 PM CDT) Anatomical Region Laterality Modality Pelvis, Hip Digital Radiography Specimen (Source) Anatomical Collection Method Collection Time Re ceived Time Location / / Volume Laterality 05/21/2022 2:24 PM CDT Impressions 05/21/2022 3:34 PM CDT COMPARISON: ??None. FINDINGS: ??Bone detail is suboptimal. N o definite fracture identified. There are mild right and irsp-si-njppdnde left degenerative changes in the hips. Procedure Note Vidal Issa MD - 05/21/2022Forma tting of this note might be different from the original. IMPRESSION COMPARISON: None. FINDINGS: Bone detail is suboptimal. No definite fracture identified. There are mild right and fiwm-lj-ynvlxkqu left degenerative changes in the hips. Tra [...] fracture identified. There are mild right and jdld-jt-mtcnfvmo left degenerative changes in the hips. Procedure Note Vidal Issa MD - 05/21/2022Forma tting of this note might be different from the original. IMPRESSION COMPARISON: None. FINDINGS: Bone detail is suboptimal. No definite fracture identified. There are mild right and juhi-zd-mmgjwquy left degenerative changes in the hips. Tra Remy MD RAD GD documented in this encounter Visit Diagnoses Diagnosis Left hip pain Pain in joint, pelvic region and thigh documented in this encounter Care Teams Pan Helper Relationship Specialty Start Date End Date Non Pn, Clinician, PCP - General 06/23/20 [place] [address] documented as of this encounter
--- OUTSIDE RECORDS SUMMARY | 2022-06-17 14:41 | XMS_ITS | Encounter Summary ---
:1950 Author Organization [employer] Address [address] [address] Care Team Providers Name Role Phone Non Pn, Clinician MD Primary Care Provider Unavailable Reason for Visit Reason Comments PAIN, NOS Encounter Details Date Type Department Care Team Description 08/29/2020 Telephone [facility] Kathi Chen PA-C PAIN, NOS [address] [facility] [place], [place] [address] [place] [address] [phone] (Wo rk) Social History Tobacco Use Types [...] called back and patient is down in [place]. He states his back is tight in the morning but then gets better. He is going to try some PT and will seek advise down in [place] if symtoms persist. EOGRAPHY DIRECTOR Carolyn Johnson - 08/29/2020 8:58 AM CST Has the patient recently had surgery or an injury? No How may we help you today? Patient is in [place] and is having low back pain. He would like to only talk to Kathi Fry since she is familiar with his history. Describe your symptoms/concerns: When did the issue start: Have you been seen for this recently?: 12/30/18 Kathi Fry [Driveway Attendant/Appt Center: If yes, please include date and provider.] Is it okay to leave detailed message on your voicemail? Yes [Driveway Attendant/Appt Center: If this call is after 3 p.m., communicate to patient: If we are not able to get back to you by the end of the day and your symptoms worsen please contact the Careline] EOGRAPHY DIRECTOR documented in this encounter Plan of Treatment Not on filedocumented as of this encounter Visit Diagnoses Not on filedocumented in this encounter Care Teams Sleeve Separator Relationship Specialty Start Date End Date Non Pn, Clinician, PCP - General 06/23/20 [place] [address] documented as of this encounter
--- OUTSIDE RECORDS SUMMARY | 2022-06-17 14:41 | XMS_ITS | Encounter Summary ---
:1950 Author Organization [employer] Address [address] [place] [address] Care Team Providers Name Role Phone Needs Pcp, Assignment Primary Care Provider Reason for Referral Therapies (Routine) - Closed Specialty Diagnoses / Procedures Referred By Contact Refer red To Contact Diagnoses Status post total right knee replacement Nba Paulino PA-C [address] [place], [place] [address] Referral ID Status Reason Start Date Expiration Date Visits Requ ested Visits Authorized Closed 06/15/2020 08/14/2020 1 1 Scheduling Instructions Total Knee Protocol Procedure/Equipment (Routine) - Incomplete Specialty Diagnoses / Procedures Referred By Contact Refer red To Contact Procedures Sanjay Murrieta MD XR Knee Rt 2 Views [address] [facility] [place], [place] [address] Referral ID Status Reason Start Date Expiration Date Visits V isits Requested Authorized [id number] Incomplete 06/15/2020 09/14/2021 1 1 (Routine) - Closed Specialty Diagnoses / Procedures Referred By Contact Refer red To Contact Procedures Sanjay Murrieta MD Physical Therapy Eval and [address] [place] [address] Today Referral ID Status Reason Start Date Expiration Date Visits Requ ested Visits Authorized [id number] Closed 06/15/2020 09/14/2021 1 1 Reason for Visit Auth/Cert Specialty Diagnoses / Procedures Referred By Contact Refer red To Contact Diagnoses Osteoarthritis of right knee, unspecified osteoarthritis type Procedures TOTAL KNEE JOINT REPLACEMENT Referral ID Status Reason Start Date Expiration Date Visits Requ ested Visits Authorized [id number] 1 1 Encounter Details Date Type Department Care Team Description 06/15/2020 - [facility] Ortho Sanjay Murrieta, Status post total right knee replacement (Primary Dx); 06/17/2020 Encounter Med Surg Idiopathic hypotension; [address] [place] [address] [facility] Primary cardiomyopathy ([facility]) [address] [facility], [address] [place] [address] [phone] Social History Tobacco Use Types Packs/Day Years [...] Your Medications These medications were sent to [facility] [address] ?? oxyCODONE 5 MG immediate release tablet [...] must be accompanied by a responsible adult motor vehicle escort driver at the time you are discharged. [...] spirometer use 3) Practice good oral care. [place] your teeth and use mouthwash twice daily. [...] Comments: Call [facility] Nurse Triage at [phone] Not all post-operative infections can be prevented, but early detection and proper treatment can prevent major catastrophes. Do not start antibiotics for incision infections without contacting the orthopedic surgeon first. IF in doubt, call the orthopedic surgeon. [facility]: For non-urgent orthopedic questions please contact your surgeon's nurse triage line Friday - Friday Order Comments: Call [facility] Nurse Triage at [phone] Friday-Friday 8:00 AM to 5:00 PM. No follow-up provider specified. Total time spent on discharge on day of discharge 30 minutes. For full discharge orders and instructions, please see the after visit summary for this hospitalization. Nba Paulino PA-C 12:34 PM 06/17/2020 documented in this encounter Discharge Instructions Discharge Instr - AnticoagulationDanay Fall, [facility] - 06/15/2020 2:37 PM CDT ANTICOAGULATION DISCHARGE [...] questions regarding your therapy. Danay Fall, PharmD., [facility] 11:24 AM 06/17/2020 documented in this encounter Medications at Time of Discharge Medication Sig Dispensed Refills Start Date End Date levothyroxine Take 1 Tablet by 0 06/16/2020 (SYNTHROID) 200 MCG mouth daily. tablet rOPINIRole (REQUIP) 1 MG Take 1 mg [...] tablets for pain rated 8-10. rivaroxaban (XARELTO) 10 Take 1 Tablet by 5 Tablet 0 06/1506/11/2022 MG tabletIndications: mouth every evening Thrombosis prevention with a meal for 5 following orthopedic days. Indications: surgery. Thrombosis prevention following orthopedic surgery. rivaroxaban (XARELTO) 20 Take 1 Tablet by [...] including possible side effects. Prescriptions filled by [facility] pharmacy. Belongings checklist reviewed with patient and [...] history, with cardiology care being received through [facility]. Objective: PHYSICAL EXAM: BP 102/56 Pulse 64 [...] by orthopedics nicely Zion Horton MD [facility] p: [phone] Erendira Packer OTR/Pohebe - 06/17/2020 8:11 AM CDT Occupational Therapy [...] ~ 50 feet with FWW Treatment Location: [facility] Frequency: daily General Current living situation: Patient [...] -LE dressing: Re-educated Patient on use of loftsman/woman for LE dressing and to dress affected leg first.Patient in agreement and stated he has a loftsman/woman at home and feels he does not [...] with ADL/IADLs in 3 days. MET ?? long term care phlebotomist goal: Patient will maximize independence and safety [...] 18 Total Treatment Minutes: 18 Therapist signature: VÍCTOR Gaston/Phoebe 8:11 AM 06/17/2020 Eleanor Pearl, PT - [...] therapy clearance, likely tomorrow Angelica Jesus APRN, MIXING MACHINE FEEDER 2:46 PM 06/16/2020 Patient switched from extended [...] INFORMATION Mood: pleasant Cooperation: full Treatment Location: [facility] Special Equipment: None Precautions: falls risk Patient [...] Eleanor Pearl, PT 9:02 AM 06/16/2020 Erendira Packer OTR/L [...] ~ 5 feet with FWW Treatment Location: [facility] Frequency: daily General Current living situation: Patient [...] with ADL/IADLs in 3 days. MET ?? half-way goal: Patient will maximize independence and safety [...] replacement 06/15/[address] Murrieta at [facility]. Order: Eval and Treat: Total joint protocol Twice daily For Gait training: Straight Leg Raises, active abduction to operative leg. Isometric, AAROM, AROM to operative leg. Strengthening exercises to other extremities as needed. SUBJECTIVE Patient reports: It helps to move positions Mood: alert, quiet - did not say much Pain: Location: right knee 8/10 Support System: - present for session Prior [...] no LOB noted during session Standardized test: -[facility] 5 Items (out of 20 points): Raw Score: 15, Standardized Score: 38.88, G Code: CK, 44.61% impaired Suggested AM-PAC Basic Mobility Stage: 34-51 - LIMITED MOVING [...] Plans to go to OP PT in [facility] Plan for Next Treatment: ambulation with FWW, measure ROM, TKA exercises, transfers, stairs when appropriate NOTE: The clinician's signature certifies medical necessity for the treatment plan above. Lianna Cano RN - 06/15/2020 3:57 PM CDT POST-OP O: Patient will have a stable post-op period. D: Pt arrived to room [address] [place] [address], at 14:20. Patient is alert and oriented [...] preventions with ADL/IADLs in 3 days. ?? long term care phlebotomist goal: Patient will maximize independence and safety [...] meal prep, home making, and driving. Signature: VÍCTOR Gaston/Phoebe 4:06 PM 06/15/2020 NOTE: The clinician's signature [...] 12:00 PM CDT NAME: RAIN PETTY MR#: [id number] CSN: [id number] AUTHENTICATING CLINICIAN: Sanjay Murrieta MD CONFIRM #: [id number] LOC: 1 OPERATIVE REPORT DATE OF OPERATION: 06/15/2020 : 1950 SURGEON: Sanjay Murrieta MD PREOPERATIVE DIAGNOSIS: Advanced degenerative arthrosis, right knee. POSTOPERATIVE DIAGNOSIS: Advanced degenerative arthrosis, right knee. PROCEDURE: Cemented right total knee arthroplasty using Mook Persona components. SENIOR MECHANICAL TECHNICIAN: KRANTHI Cheek HISTORY: The patient is a [...] the arthrotomy incision was closed with interrupted pwngjf-jy-hqdmw 0 Vicryl sutures. Subcutaneous closure with 0 Vicryl was followed by staple approximation of the skin edges. A sterile bulky dressing was applied. The tourniquet and legholder were removed, and [facility] in satisfactory condition. There were no intraoperative complications noted, and he seemed to be doing well in the PAR. ALF:MEDQ C: CONFIRM #: [id number] documented in this encounter Consult Notes Keri [...] Care Integration treatment team to assess. FRANCHESCA Roqeu 10:37 AM 06/17/2020 documented in this encounter Plan of Treatment Scheduled Referrals Name Type Priority Associated Diagnoses Order S [facility] Physical Therapy Referral Routine Status post total [...] Signature Hemoglobin 12.3 (L) 13.5 - 06/17/2020 [facility] 17.5 g/dL 8:16 AM CDT LABORATORY Specimen Anatomical Collection Method / Collection Time Recei salud Time (Source) Location / Volume Laterality Blood Venipuncture / 06/17/2020 8:07 06/17/2020 8:13 Unknown AM CDT AM CDT Donovan Sanchez MD LAB_1 Performing Organization Address [facility]/ZIP [facility] Phon e Number [facility] [address] [place] [address] (ABNORMAL) Hemoglobin (06/16/2020 3:47 PM CDT) athologist Signature Hemoglobin 12.1 (L) 13.5 - 06/16/2020 [facility] 17.5 g/dL 3:54 PM CDT LABORATORY Specimen Anatomical Collection Method / Collection Time Recei salud Time (Source) Location / Volume Laterality Blood Venipuncture / 06/16/2020 3:47 06/16/2020 3:51 Unknown PM CDT PM CDT Donovan Sanchez MD LAB_1 Performing Organization Address City/[facility] Phon e Number [facility] [address] [place] [address] (ABNORMAL) Hemoglobin in AM POD #1 (06/16/2020 7:56 AM CDT) athologist Signature Hemoglobin 12.5 (L) 13.5 - 06/16/2020 [facility] 17.5 g/dL 8:06 AM CDT LABORATORY Specimen Anatomical Collection Method / Collection Time Recei salud Time (Source) Location / Volume Laterality Blood Venipuncture 06/16/2020 7:56 06/16/2020 8 :02 [place] / Unknown AM CDT AM CDT Sanjay Murrieta MD LAB_1 Performing Organization Address [facility] Phon e Number [facility] [address] [place] [address] Creatinine / GFR (06/15/2020 3:07 PM CDT) athologist Signature Creatinine 0.76 0.73 - 06/15/2020 [facility] 1.18 mg/dL 4:32 PM CDT LABORATORY GFR, Estimated >60 >60 06/15/2020 [facility] mL/min/1.7 4:32 PM CDT LABORATORY 3m2 Specimen Anatomical Collection Method / Collection Time Recei salud Time (Source) Location / Volume Laterality Blood Venipuncture 06/15/2020 3:07 06/15/2020 3 :13 Butterfly / Unknown PM CDT PM CDT Sanjay Murrieta MD LAB_1 Performing Organization Address [facility] Phon e Number [facility] [address] [place] [address] AST (06/15/2020 3:07 PM CDT) athologist Signature AST (SGOT) 18 10 - 40 U/L 06/15/2020 [facility] 4:32 PM CDT LABORATORY Specimen Anatomical Collection Method / Collection Time Recei salud Time (Source) Location / Volume Laterality Blood Venipuncture 06/15/2020 3:07 06/15/2020 3 :13 [place] / Unknown PM CDT PM CDT Sanjay Murrieta MD LAB_1 Performing Organization Address [facility] Phon e Number [facility] [place] [address] (ABNORMAL) Albumin (06/15/2020 3:07 PM CDT) athologist Signature Albumin 3.4 (L) 3.5 - 5.0 06/15/2020 [facility] g/dL 4:32 PM CDT LABORATORY Specimen Anatomical Collection Method / Collection Time Recei salud Time (Source) Location / Volume Laterality Blood Venipuncture 06/15/2020 3:07 06/15/2020 3 :13 [place] / Unknown PM CDT PM CDT Sanjay Murreita MD LAB_1 Performing Organization Address City/State/ZIP Code Phon e Number [facility] [address] [place] [address] INR/Protime (06/15/2020 3:07 PM CDT) P athologist Signature Protime 13.3 11.8 - 14.6 06/15/2020 [facility] Seconds 3:29 PM CDT LABORATORY INR 1.0 0.9 - 1.1 06/15/2020 [facility] 3:29 PM CDT LABORATORY Specimen Anatomical Collection Method / Collection Time Recei salud Time (Source) Location / Volume Laterality Blood Venipuncture 06/15/2020 3:07 06/15/2020 3 :13 [place] / Unknown PM CDT PM CDT Narrative [facility] - 06/15/2020 3:29 P M CDT Therapeutic range determined by protocol established by anticoagulation provider. Sanjay Murrieta MD LAB_1 Performing Organization Address [facility]/ZIP Code Phon e Number [facility] [address] [place] [address] XR Knee Rt 2 Views (06/15/2020 3:06 [...] Bedside Glucose Monitor (06/15/2020 8:51 AM CDT) athologist Signature Glucose, Whole 99 70 - 180 06/15/2020 [facility] Blood mg/dL 9:20 AM CDT LABORATORY Specimen Anatomical Collection Method Collection Time Receive d Time (Source) Location / / Volume Laterality Blood 06/15/2020 8:51 AM 0 9:20 CDT AM CDT Sanjay Murrieta MD LAB_1 Performing Organization Address City/State/ZIP Code Phon e Number [facility] [address] [place] [address] documented in this encounter Visit Diagnoses Diagnosis [...] time as ORAL opioids. HOLD if on RISK PREVENTION ENGINEER., Post-op ketorolac (TORADOL) injection 15 mg Given 06/17/2020 10:16 AM CDT 15 mg 15 mg, Intravenous, Q6H (NON-STND), First dose on Faye 06/15/20 at 1530, Last dose on 06/17/20 at 0930, For 48 hours, Do not [...] Starting on Faye 06/15/20 at 1407, Until [facility] 06/17/20 at 1440, Do NOT administer at the same time as IV opioids. May administer 1 hour after IV opioid administration. HOLD if on RISK PREVENTION ENGINEER. Use of ORAL opioids is encouraged as [...] Faye 06/15/20 at 1800, Last dose on [facility] 06/17/20 at 0600, For 48 hours, Tablet [...] on Faye 06/15/20 at 2000, Until Discontinued, For an INT flush, flush [...] David Alvarez RN)1111 (Given - Provider: David Alvarez, RN)1552 (Given - Provider: David Alvarez, RN)1941 (Given - Provider: Jono Frye RN) 0752 (Given - Provider: David marie RN)1139 (Given - Provider: David Alvarez RN) 650 mg, Oral, QID, First dose on Fri06/15/20 at 1600, Post-op ceFAZolin (aka ANCEF) 2 g in dextrose 100 ml IVPB (COM PLETED) 1824 (Started - Provider: Flori Pang, KELSEA)1854 (Infused - Provider: Flori Pang RN) 0227 (Started - Provider: Anca Chung RN)0257 (Infused - Provider: Anca Chung RN) 2 g, Intravenous, Administer over 30 Min utes, Q8H (NON-STND), First dose on Faye 06/15/20 at 1830, For 2 doses, Post-op ceFAZolin (ANCEF) 3 g in sodium chloride 0.9 % 100 mL IVPB (COMPLETED) 1050 (Started - Provider: Levi Renee STOKER INSTALLER, LOGISTICS PLANNER) 3 g, Intravenous, Administer over 30 Min [...] Alvarez RN)2130 (Given - Provider: Jono Frye, KELSEA) 0330 (Given - Provider: Jono Frye, KELSEA)1016 (Given - Provider: David Alvarez, KELSEA) 15 mg, Intravenous, Q6H (NON-STND), Firs t dose on Faye 06/15/20 at 1530, For 48 hours, Do not give if CrCl <60 or history of GI bleed. Start at least 6 hours after celecoxib (CELEBREX) if given., Post-op levothyroxine (SYNTHROID) tablet 200 mcg 732 (Given - Provider: David Alvarez RN) [...] 30 mL 732 (Given - Provider: David Alvarez, KELSEA) 753 (Given - Provider: David marie, KELSEA) 30 [...] Lisa Chavez RN) 10 mg, Oral, ONCE, Faye 06/15/20 at 0830, For 1 dose, Give in Preo p., Pre-op pantoprazole (PROTONIX) tablet 40 mg (COMPLETED) 1744 (Given - Provider: Flori Pang, KELSEA) 522 (Given - Provider: Bandar Frye RN) 40 [...] - Comment: given early per pt request) 1606 (Given - Provider: David Alvarez RN) 1 mg, Oral, HS, First dose on Faye 06/15/20 at 2200 sacubitril-valsartan (ENTRESTO) 97-103 MG per tablet 1 Tablet 2027 (Given - Provider: Anca Chung RN) 07 (Given - Provider: David marie RN)1999 (Not Given - Provider: Jono Frye, KELSEA - Reason: Order parameters not met - [...] David marie RN)1946 (Given - Provider: Jono Frye, KELSEA) 075 (Given - Provider: David marie, KELSEA) 10-60 mL, Intravenous, BID, First dose o [...] KELSEA) 0737 (Given - Provider: David Alvarez, RN)194 (Given - Provider: Jono Frye, KELSEA) 0754 (Given - Provider: David marie RN) 120 mg, Oral, BID, First dose on Faye 06/15/20 at 2000, OP SIG:TK 1 T PO Q 12 H spironolactone (ALDACTONE) tablet 12.5 mg 07 (Given - Provider: David Alvarez RN) 0755 [...] mg/minute. To be given in OR by LOGISTICS PLANNER prior to incision. Re-dose 1000 mg IV [...] 0227 (New Bag Started - Provider: Anca Chung, KELSEA)1534 (Stopped - Provider: David Alvarez, KELSEA) Intravenous, at 75 mL/hr, CONTINUOUS, St arting Faye 06/15/20 at 1430, Start after completion of bag currently infusing, Post-op PRN Medication Order 06/15/2020 06/16/2020 06/17/2020 bisacodyl (DULCOLAX) rectal suppository 10 mg 10 mg, Rectal, DAILY PRN, Other, Moderat e Constipation, Starting Faye 06/15/20 at 1407, Post-op riofcbuhggz-imfozeobupo-jydvcjvlr 0.25%- 1:[id number] 40 mL in 0.9% sodium chloride 60 [...] time as ORAL opioids. HOLD if on RISK PREVENTION ENGINEER., Post-op lidocaine (UROJET) 2 % prefilled syringe [...] mg 0019 (Give n - Provider: Jono Frye, RN) 3 mg, Oral, HS PRN, Sedation, [...] Oral, Q6H PRN, Nausea, Vomiting, S tarting Faey 06/15/20 at 1407, Do not swallow tablet whole. Allow to dissolve on the tongue without chewing., Post-op oxyCODONE (ROXICODONE) immediate release tablet 5-10 m g 1501 (Given - Provider: Lianna Cano RN)1745 (Given - Provider: Flori Pang, KELSEA)2028 (Given - Provider: Anca Chung, KELSEA) 0527 (Given - Provider: Anca Chung , KELSEA)0734 (Given - Provider: David Alvarez, RN - Comment: Anticipatory pain with therapy) 0019 (Given - Provider: Jono Frye, KELSEA)0523 (Given - Provider: Jono Frye, RN)0753 (Given - Provider: David Alvarez, RN)1025 (Given - Provider: David Alvarez, RN) 5-10 mg, Oral, Q2H PRN, Other, Moderate Pain (pain score 5-7), Severe Pain (pain score 8-10), Starting Faye 06/15/20 at 1407, Do NOT administer at the same time as IV opioids. May administer 1 hour after IV opioid administration. HOLD if on RISK PREVENTION ENGINEER . Use of ORAL opioids is encouraged [...] 10-60 mL 0220 (Given - Provider: Cheyenne Chavez, RN) 1016 (Given - Provider: David marie [...]
Post-op documented in this encounter Care Teams Nuclear Equipment Operator Relationship Specialty Start Date End Date Needs Pcp, Assignment PCP - General 06/15/20 06/22/20 [place] [address] documented as of this encounter
--- OUTSIDE RECORDS SUMMARY | 2022-06-17 14:41 | XMS_ITS | Encounter Summary ---
:1950 Author Organization [facility] Address [address] [place] [address] Care Team Providers Name Role Phone Non Pn, Clinician MD Primary Care Provider Unavailable Reason for Visit Reason Onset Date Comments Phone Visit 09/23/2020 Encounter Details Date Type Department Care Team Description 09/04/2020 Telemedicine [facility] Sanjay Murrieta MD S/P total knee arthroplasty, right (Prim oma Dx); CENTER [address] [place] [address] Aftercare following surgery of the [facility] [address] [place] [address] [phone] Social History Tobacco Use Types Packs/Day Years [...] encounter Progress Notes Sanjay Murrieta MD - 09/04/2020 4:10 PM CST Merrick Petty [id number] 1950 Orthopaedic Surgery Follow-Up 09/04/2020 History of Present Illness: Merrick Petty is a 70 y.o. male who presents for video visit follow-up regarding his right knee. Thepatient is in [place], [place] and the Physician is in office at [facility]. He is 3 months status post right total knee arthroplasty. He is doing very well. He has no complaints. When I saw him at the 6 week rodney he had substantial diffuse swelling in his whole leg, that has resolved. He is walking every day. He states he does not have any pain with walking, getting out of chairs, or other activities. Physical Exam: General: The patient is in no acute distress. Neuro: Answers questions appropriately. Alert and oriented x 3. Skin: Cool to touch without erythema, ecchymosis, or lesions. Right Knee: He shows me that the incision is very nicely healed. He has full extension. Nearly full symmetric knee flexion. There does not appear to be any swelling in the right leg or around his knee. Assessment: Diagnosis and Associated Orders ICD-10-CM 1. History of total knee arthroplasty, right Z96.651 2. Aftercare following surgery of the musculoskeletal system Z47.89 Plan: He will continue with progressive activity. I will see him when he gets back in the spring to [place]. He will call if he has any issues in the interim. Scribe Disclosure: Scribed for Sanjay Murrieta MD by Johanna Grey, medical director. I, Sanjay Murrieta MD, have personally reviewed and agree with the information entered by the scribe. Sanjay Murrieta MD TECHNICIAN Sanjay Murrieta MD - 09/04/2020 4:10 PM CST Subjective: Today's visit with Merrick Petty was conducted as a scheduled telephone visit. Objective: Health Maintenance Due Topic Date Due ??? Hep C Screening (Preventive Services) 1950 ??? Medicare Annual Wellness Visit 1950 ??? Colon Cancer Screening Plan Due 1950 ??? DTaP/Tdap/Td (1 - Tdap) 1969 ??? Cholesterol 1985 ??? Zoster (2 of 3) 08/19/2013 ??? Advanced Directive 2015 ??? Influenza (1) 05/30/2020 BP Readings from Last 1 Encounters: 06/23/20 126/59 Assessment/Plan: 1. S/P total knee arthroplasty, right 2. Aftercare following surgery of the musculoskeletal system S/P Total Knee Arthroplasty Plan: Patient will return for F/U at 6 months post-op, PRN Sanjay Murrieta MD TECHNICIAN documented in this encounter Plan of Treatment Not on filedocumented as of this encounter Visit Diagnoses Diagnosis S/P total knee arthroplasty, right - Minnie alonso [facility] Aftercare [facility], [facility] documented in this encounter Care Teams Customs Opener Verifier Packer Relationship Specialty Start Date End Date Non Pn, Clinician, PCP - General 06/23/20 [place] [address] documented as of this encounter
--- OUTSIDE RECORDS SUMMARY | 2022-06-17 14:41 | XMS_ITS | Encounter Summary ---
:1950 Author Organization [facility] [facility] Address [address] [place] [address] Care Team Providers Name Role Phone Non Pn, Clinician MD Primary Care Provider Unavailable Reason for Visit Reason Comments Post-Op Follow Up right knee TKA Encounter Details Date Type Department Care Team Description 07/24/2020 Office Visit [facility] Sanjay Murrieta MD S/P total knee arthroplasty, right (Prim oma Dx); CENTER [address] [place] [address] Dr Localized swelling of right lower extrem ity [address] [place], [place] [phone] (Wo rk) Social History Tobacco Use Types [...] - 07/24/2020 2:50 PM CDT Merrick Petty [id number] 1950 Orthopaedic Surgery Postoperative Follow-Up 07/24/2020 History [...] He did not want to consider that. Elviswill continue to work on therapy. He will let us know of his progress. Ultimately, I hope this will continue to improve and resolve for him. He will see me back in 6 weeks for follow-up evaluation. Scribe Disclosure: Scribed for Sanjay Murrieta MD by Vianey Vega biomedical equipment technician. I, Sanjay Murrieta MD, have personally reviewed and agree with the information entered by the scribe. Sanjay Murrieta MD documented in this encounter Plan of Treatment Not on filedocumented as of this encounter Visit Diagnoses Diagnosis S/P total knee arthroplasty, right - Minnie alonso Localized swelling of right lower extrem ity documented in this encounter Care Teams Bench Examiner Relationship Specialty Start Date End Date Non Pn, Clinician, PCP - General 06/23/20 [place] [address] documented as of this encounter
--- OUTSIDE RECORDS SUMMARY | 2022-06-17 14:41 | XMS_ITS | Encounter Summary ---
:1950 Author Organization [employer] Address [address] [place] [address] Care Team Providers Name Role Phone Non Pn, Clinician MD Primary Care Provider Unavailable Reason for Visit Procedure/Equipment (Routine) - Incomplete Specialty Diagnoses / Procedures Referred By Contact Refer red To Contact Diagnoses Pain, joint, ankle and foot, left Riley Wilkes MD Procedures XR Foot Lt 3+ Views [address] [place] [address] Referral ID Status Reason Start Date Expiration Date Visits V isits Requested Authorized [id number] Incomplete 02/05/2021 05/07/2022 1 1 Encounter Details Date Type Department Care Team Description 02/05/2021 Ancillary [facility] Riley Wilkes, Pain, joint, ankle Procedure [address] and foot, left Drive [address] [facility] [place] [address] [phone] Social History Tobacco Use Types Packs/Day Years [...] 1st, 2nd, and 3rd tarsometatarsal joints with yfmr-ax-ljcv articulation at the 1st TMT joint, along with bone spurs noted dorsally. ??Some joint irregularity across the navicular cuneif orm joints. ??No acute fractures or dislocations noted. Riley Wilkes MD RAD GD documented in this encounter Visit Diagnoses Diagnosis Pain, joint, ankle and foot, left documented in this encounter Care Teams Commercial Lines Account Manager Relationship Specialty Start Date End Date Non Pn, Clinician, PCP - General 06/23/20 [place] [address] documented as of this encounter
--- OUTSIDE RECORDS SUMMARY | 2022-06-17 14:41 | XMS_ITS | Encounter Summary ---
:1950 Author Organization [facility] Address [address], [place] [address] Care Team Providers Name Role Phone Non Pn, Clinician MD Primary Care Provider Unavailable Reason for Visit Reason Comments Questions Possible infection Encounter Details Date Type Department Care Team Description 06/23/2020 Telephone [facility] Sanjay Jenkins MD Questions (Possible CENTER [address] [facility] [address] infection ) [address] [place], [place] [address] [phone] (Wo rk) Social History Tobacco Use Types [...] change in symptoms since LEORA visit at [facility] on 2020 with Seema Rodriguez, see [...] Dr. Murrieta. Who recommended pt go to [facility] ER to be evaluated for infection with labs (CBC, ESR, CRP), and knee aspiration as well as starting abx in the hospital. Rule out DVT ultrasound. Original Keflex order cancelled as pt instead advised to go to ER to be evaluated today. Called pt with plan, stated understanding. Will present to [facility] ER. ER updated with pt arrival and plan. documented in this encounter Plan of Treatment Not on filedocumented as of this encounter Visit Diagnoses Not on filedocumented in this encounter Care Teams Residence Life Coordinator Relationship Specialty Start Date End Date Non Pn, Clinician, PCP - General 06/23/20 [place] [address] documented as of this encounter
--- OUTSIDE RECORDS SUMMARY | 2022-06-17 14:41 | XMS_ITS | Encounter Summary ---
:1950 Author Organization [facility] Address [address] [place] [address] Care Team Providers Name Role Phone Non Pn, Clinician MD Primary Care Provider Unavailable Reason for Visit Reason Comments Post-Op Follow Up right knee TKA Encounter Details Date Type Department Care Team Description 06/27/2020 Office Visit Sanjay Galeana MD Status post total right knee replacement (Primary Dx); CENTER [address] [place] [address] Dr Edema, leg [address] [place], [place] [address] [phone] (Wo rk) Social History Tobacco Use Types [...] - 06/27/2020 8:40 AM CDT Merrick Petty [id number] 1950 Orthopaedic Surgery Postoperative Follow-Up 06/27/2020 History [...] services, and (b) the recordis accurate. Sanjay Murritea MD documented in this encounter Plan of Treatment Not on filedocumented as of this encounter Visit Diagnoses Diagnosis Status post total right knee replacement - Primary Edema, leg documented in this encounter Care Teams Mobile Ui Developer Relationship Specialty Start Date End Date Non Pn, Clinician, PCP - General 06/23/20 [place] [address] documented as of this encounter
--- OUTSIDE RECORDS SUMMARY | 2022-06-17 14:41 | XMS_ITS | Encounter Summary ---
:1950 Author Organization [facility] Address [address], [place] [address] Care Team Providers Name Role Phone Non Pn, Clinician Primary Care Provider Unavailable Encounter Details Date Type Department Care Team Description 11/02/2020 Notes/Orders [facility] Sanjay Sutton MD [address] [facility] [address] [facility] [place] [address] 1 [place] [address] [phone] (Wo rk) Social History Tobacco Use Types [...] on filedocumented in this encounter Care Teams Saloon Keeper Relationship Specialty Start Date End Date Non Pn, Clinician, PCP - General 06/23/20 [place] [address] documented as of this encounter
--- OUTSIDE RECORDS SUMMARY | 2022-06-17 14:41 | XMS_ITS | Encounter Summary ---
:1950 Author Organization [employer] Address [address], [place] [address] Care Team Providers Name Role Phone Non Pn, Clinician MD Primary Care Provider Unavailable Reason for Referral Procedure/Equipment (Routine) - Incomplete Specialty Diagnoses / Procedures Referred By Contact Refer red To Contact Diagnoses Status post total right knee replacement Sanjay Murrieta MD Procedures XR Knee Rt 3 Views [address] [facility] [place], [place] [address] Referral ID Status Reason Start Date Expiration Date Visits V isits Requested Authorized [id number] Incomplete 06/19/2021 09/18/2022 1 1 Reason for Visit Reason Comments Knee Problem One year post op TKA Right Encounter Details Date Type Department Care Team Description 06/19/2021 Office Visit [facility] Sanjay Murrieta MD Status post total CENTER [address] [facility] right knee [address] [place], [place] replacement (Primary [place], [place] [address] Dx) [phone] (Wo rk) Social History Tobacco Use Types [...] - 06/19/2021 10:50 AM CDT Merrick Petty [id number] 1950 Orthopaedic Surgery Postoperative Follow-Up 06/19/2021 History [...] filedocumented as of this encounter Results XR Knee [...] replacement documented in this encounter Care Teams Director Multimedia Relationship Specialty Start Date End Date Non Pn, Clinician, PCP - General 06/23/20 [place] [address] documented as of this encounter
--- OUTSIDE RECORDS SUMMARY | 2022-06-17 14:41 | XMS_ITS | Encounter Summary ---
:1950 Author Organization [facility] Address [address] [place] [address] Care Team Providers Name Role Phone Needs Pcp, Assignment Primary Care Provider Reason for Visit Reason Comments Post-Op Follow Up right knee TKA Encounter Details Date Type Department Care Team Description 2020 Office Visit [facility] Seema Cheney, Stat post total CENTER OA right knee [address] [facility] [address] [facility] [address] replacement (Primary [place], [place] [address] [place], [place] Dx) [phone] Social History Tobacco Use Types Packs/Day Years [...] Cheney, OA - 2020 1:30 PM CDT [facility] Post-Operative Note Surgeon: Sanjay Murrieta MD [...] Primary documented in this encounter Care Teams Ground Intelligence Officer Relationship Specialty Start Date End Date Needs Pcp, Assignment PCP - General 06/15/20 06/22/20 [place] [address] documented as of this encounter
--- OUTSIDE RECORDS SUMMARY | 2022-06-17 14:41 | XMS_ITS | Encounter Summary ---
:1950 Author Organization [employer] Address [address] [address] Care Team Providers Name Role Phone Non Pn, Clinician MD Primary Care Provider Unavailable Reason for Visit Reason Comments QUESTIONS, GENERAL Encounter Details Date Type Department Care Team Description 05/22/2022 Telephone [facility] Tra Pinon MD QUESTIONS, GENERAL [address] [facility] [address] [facility] [place] [address] [place] [address] [phone] (Wo rk) Social History Tobacco Use Types [...] encounter Nursing Notes Magaly Connolly RN - 05/22/2022 4:44 PM CDT Left intra-articular hip injection today. He reports new numbness from hip area down the leg to justabove the knee. No other s/s. Advised to monitor symptoms for now and to call back with any new or worsening symptoms. If symptoms continue into next week, he will call back to discuss. Kindra Cesar - 05/22/2022 3:22 PM CDT Has the patient recently had surgery or an injury? No How may we help you today? Pt. Called today asking to be contacted by Dr. Remy's care team regarding questions that he has, pt. Would not elaborate and simply requested to be contacted. Describe your symptoms/concerns: N/A When did the issue start: N/A Have you been seen for this recently?: Pt. Was last seen by Dr. Remy on 05/21/2022 [Liner Helper/Appt Center: If yes, please include date and provider.] Is it okay to leave detailed message on your voicemail? Yes [Liner Helper/Appt Center: If this call is after 3 p.m., communicate to patient: If we are not able to get back to you by the end of the day and your symptoms worsen please contact the Careline] documented in this encounter Plan of Treatment Not on filedocumented as of this encounter Visit Diagnoses Not on filedocumented in this encounter Care Teams Skein Drier Relationship Specialty Start Date End Date Non Pn, Clinician, PCP - General 06/23/20 [place] [address] documented as of this encounter
--- OUTSIDE RECORDS SUMMARY | 2022-06-17 14:41 | XMS_ITS | Encounter Summary ---
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 [place], [place] [address] Referral ID Status Reason Start Date Expiration Date Visits Requ ested Visits Authorized [id number] Closed 05/29/2022 05/29/2023 1 1 Scheduling Instructions This order is [...] ask your clinician's staff to assist you. 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 [place], [place] [address] Referral ID Status Reason Start Date Expiration Date Visits V isits Requested Authorized [id number] New Request 05/29/2022 08/28/2023 1 1 Scheduling Instructions Your provider has recommended an appoint ment with [facility]. You can quickly make your appointment online at [employer]/schedule. You can also call [phone] for help scheduling yo ur appointment. We suggest you call your health insurance company about your cove rage and benefits for this appointment. Reason for Visit Reason Comments BACK PAIN, LOW Encounter Details Date Type Department Care Team Description 05/29/2022 Office Visit [facility] Kathi Seymour, Deb cali of [place] lumbosacral region [address] [facility] [address] [facility] without myelopathy or [place], [place] [address] [place], [place] radiculopathy (HRC) [phone] [address] (Primary Dx) Social History Tobacco Use Types Packs/Day [...] - - Weight 133.8 kg (295 lb) 05/29/2022 8:37 AM CDT Height 198.1 cm (6' 6) 05/29/2022 8:37 AM CDT Body Mass Index 34.09 05/29/2022 8:37 AM CDT documented in this encounter Patient Instructions Patient InstructionsBrian Salguero CMA - 05/29/2022 8:30 AM CDT Thank you for Choosing [facility] for your health care visit today. Kathi Fry PA-C Orthopaedic Spine Clinic hours: 7:30a-6:30p M/W/F Please allow time for insurance prior authorization on imaging and interventions Medication Requests: Prescriptions are not filled on weekends or on weekdays after 3:00 PM. For all medication refills: Request a refill using [employer] or contact your pharmacy. What is Know Your Cost? Know Your Cost is a service for patients and patient/members to call and receive personalized cost information and estimates across our care group. The phone number is (COST) Friday - Friday 8 AM to 5 PM Advanced Imaging Scheduling: To schedule an MRI, Ultrasound, or Image guided injection at [facility] please call [phone]. To schedule an MRI or CT at a [facility] location please call [phone]. [facility] Workers' Compensation [address] [place] [address] (Phone) Email: [email or web address] Release of Information: Radiology/Imaging [address] [place] [address] (Phone) Health Information Management [address] [place] [address] (Phone) [employer] documented in this encounter Progress Notes Kathi Fry PA-C - 05/29/2022 8:30 AM CDT Mrerick Petty [id number] 1950 [facility] Orthopaedic Center Consultation 05/29/2022 Chief Complaint: Increasing back pain x months History of Present Illness: Merrick Petty is a 71 y.o. male who was seen today in the medical spine clinic for evaluation of recurrent low back pain. I last evaluated the patient on 12/30/2018 at which time he was describing bilateral low back pain with posterior leg paresthesia. He is status post L3 through S1 facet joint injections in January of 2020. He believes those injections were helpful to him, but short-lived. Since our last visit, he has undergone a right total knee replacement. He has a known history of surgery on his right foot, and currently is experiencing an issue on his left foot. He was recently prescribed orthotics. He has spent half the year away in [place], and has recently undergone updated MR imaging at [facility] in [place]. Today, Merrick describes pain deep into the left glute, and across the lumbosacral junction. He deniesradiation of paresthesia to the lower extremities. He has increased discomfort with transitioning position, but denies neurogenic claudication. He has recently seen Dr. Remy, and underwent a left hip injection with some benefit. Merrick likes to play golf and pickleball. He is requiring a walker as needed at night, and will use Tylenol for pain management. * Merrick is on Xarelto and has an ICD. Allergies: Patient has no known allergies. Past Medical History: The patient has a past medical history of Atrial fibrillation (HRC), Hypertension (HRC), Hypothyroid(HRC) (12/14/2018), ICD (implantable cardioverter defibrillator) pocket hematoma (HRC), Primary osteoarthritis of left knee (03/15/2020), and Status post total right knee replacement (06/15/2020). Past Surgical History: The patient has a past surgical history that includes Total knee arthroplasty (Right, 06/15/2020). Family History: The patient's family history is not on file. Social History: They are a non-smoker. Review of Systems: 07/12 systems were reviewed and are negative except where noted here or on intake form: None The General Medical History Form dated 05/29/2022 was updated and reviewed with the patient; this is located in [facility] in [facility]. Physical Exam: VS: There were no vitals taken for this visit. BMI: Estimated body mass index is 34.09 kg/m?? as calculated from the following: Height as of 05/21/22: 1.981 m (6' 6). Weight as of 05/21/22: 133.8 kg (295 lb). Gen/Psych: AxOx3. Good affect. Good historian. The patient is well groomed. The patient is not using an assistive device. Eyes: PERRL. ENT: Face symmetric. Resp: Unlabored. CV: Good perfusion to lower extremities. 1-2/4 LE edema. Skin: Warm & dry without discoloration or lesions MSK: Symmetric tone and bulk. The patient is not scoliotic. Kyphotic Pelvis is symmetric. Femoral Stretch Test deferred. Log roll intact Right total knee incision, well healed. Neuro: Gait antalgic. The patient does not transition well from a seated position. Toe walk, heel walk deferred secondary to balance Non-tender with palpation of spinous processes, paraspinal muscles, SI joints, sciatic notch, or greater trochanters. Lumbar mobility shows impaired lumbar range of motion. Lower Extremity muscle group strength is 5/5 with hip flexion, knee add/abduction intact, knee extension intact, dorsi/ plantar flexion. SLR is negative. Sensation intact to light touch and pinprick. Imaging: MRI of the Lumbar spine - (12/16/2018): IMPRESSION: 1. Small right paracentral disc protrusion effaces the ventral thecal sac at the L3-L4 level. 2. Mild disc bulges are present at the L1-L2, L2-L3, L4-L5, and L5-S1 levels as detailed above. 3. Ksby-wy-snsrgjco right neural foraminal stenosis at the L4-L5 level. 4. Mild narrowing of the proximal L3-L4 and right L5-S1 neural foramen. XR Pelvis left Hip (05/21/2022): FINDINGS: Bone detail is suboptimal. No definite fracture identified. There are mild right and nznt-iq-xgjtrmej left degenerative changes in the hips I independently reviewed and interpreted the imaging studies above; the results were discussed with the patient. Diagnostic Impression: Merrick is a 71 y.o. year-old male with: 1. Significant lumbosacral spondylosis and facet arthrosis with mechanical back pain 2. Left hip OA Plan: We discussed imaging and treatment options today. We will obtain his MRI from [facility]. In the interim, I would like him to pursue a course of physical therapy, and [facility] of a lumbar RFA. He is scheduled to depart for [place] in June, however, he is able to travel back and forth from [place] to [place] for care. He would need to be given clearance to stop his Xarelto prior to any diagnostic blocks or ablation procedure. He was in agreement. TT: 31 minutes, CT: 30 minutes, Time includes chart review of documentation and imaging, discussing symptoms, imaging, and exam findings, and available options. Documents reviewed prior to seeing the patient included a General Medical History Form, an Oswestry Disability Index with a PHQ-2, which has been imaged in to [employer]. *Please note this document was drafted using voice recognition software. Typographical errors are liable to occur. Kathi Fry PA-C documented in this encounter Plan of Treatment Scheduled Referrals Name Type Priority Associated Diagnoses Order S chedule Pain-Medical Adult Referral Routine Spondylosis of lumbosa cral Ordered: 05/29/2022 Consult [facility] Location region without myel opathy or radiculopathy (HRC) Physical Therapy Referral Routine Spondylosis of lumbosacr al Ordered: 05/29/2022 region without myelopathy or radiculopathy (HRC) documented as of this encounter Visit Diagnoses Diagnosis Spondylosis of lumbosacral region withou t myelopathy or radiculopathy (HRC) - Primary Lumbosacral spondylosis without myelopat hy documented in this encounter Care Teams Associate Professor Of Mathematics Relationship Specialty Start Date End Date Non Pn, Clinician, PCP - General 06/23/20 [place] [address] documented as of this encounter
--- OUTSIDE RECORDS SUMMARY | 2022-06-17 14:41 | XMS_ITS | Encounter Summary ---
:1950 Author Organization [facility] [employer] Address [address] [place] [address] Care Team Providers Name Role Phone Non Pn, Clinician MD Primary Care Provider Unavailable Reason for Visit Reason Comments Post-Op Follow Up right knee TKA Encounter Details Date Type Department Care Team Description 07/04/2020 Office Visit [facility] Sanjay Murrieta MD Status post total CENTER [address] [facility] right knee [address] [place], [place] replacement (Primary [place], [place] [id number] Dx) [phone] (Wo rk) Social History Tobacco Use Types [...] encounter Progress Notes Sanjay Murrieta MD - 07/04/2020 8:20 AM CDT Merrick Petty [id number] 1950 Orthopaedic Surgery Postoperative Follow-Up 07/04/2020 History of Present Illness: Merrick Petty is a 70 y.o. male 3 weeks status-post total right knee arthroplasty completed on 06/15/2020 who presents today for postoperative follow-up. He is doing well. His swelling has improved dramatically. He has no issues with drainage or significant pain that he had previously. Physical Exam: General: The patient is in no acute distress. Neuro: Answers questions appropriately. Alert and oriented x 3. Skin: Cool to touch without erythema, ecchymosis, or lesions. Right Knee: Incisions healing nicely. The remainder of the ashley were removed. There is no erythema around his incisions. No drainage. There is still thickness and fullness in the knee, but demonstrates almost full extension. Flexion easily to 95-100 degrees. Excellent alignment. There is moderate swelling in the calf and ankle, but no calf tenderness. Assessment: Satisfactory post operative course, s/p right TKA. Plan: At this point, I will see him back in 3-4 weeks for a follow-up evaluation and motion check. He willcall if he has any issues in the interim. Scribe Disclosure: Candy Amaya, am serving as [...] Primary documented in this encounter Care Teams Cnmt Relationship Specialty Start Date End Date Non Pn, Clinician, PCP - General 06/23/20 [place] [address] documented as of this encounter
--- OUTSIDE RECORDS SUMMARY | 2022-06-17 14:41 | XMS_ITS | Encounter Summary ---
:1950 Author Organization [employer] Address [address] [place] [address] Care Team Providers Name Role Phone Non Pn, Clinician MD Primary Care Provider Unavailable Reason for Visit Procedure/Equipment (Routine) - Incomplete Specialty Diagnoses / Procedures Referred By Contact Refer red To Contact Diagnoses Left hip pain Tra Remy MD Procedures [place] Injection Hip Lt [address] [facility] [place] [address] Referral ID Status Reason Start Date Expiration Date Visits V isits Requested Authorized [id number] Incomplete 05/21/2022 08/20/2023 1 1 Encounter Details Date Type Department Care Team Description 05/22/2022 Ancillary Procedure [facility] Tra Remy, Left hip pain [address] [facility] [place] [address] [address] [facility] [phone] [facility] [address] (Wo rk) Social History Tobacco Use Types [...] Priority Date/Time Associated Diagnosis Comme nts FL INJECTION HIP LT Routine 05/22/2022 7:56 AM Left hip pain R esults for this CDT procedure are i n the results section. documented in this encounter Results FL Injection Hip Lt [...] the injection. Tra Remy MD RAD [place] documented in this encounter Visit Diagnoses Diagnosis Left hip pain Pain in joint, pelvic region and thigh documented in this encounter Administered Medications Inactive Administered Medications - up to 3 most recent administrations Medication Order MAR Action Action Date Dose Rate Site iopamidol (ISOVUE-M 200) 41 % Given 05/22/2022 7:32 AM CDT 2 mL intrathecal injection 2 mL 2 mL, Intra-articular, ONCE, On Fri05/22/22 at 0800, For 1 dose triamcinolone acetonide (KENALOG-40) 40 MG/ML Given 7:32 AM CDT 40 mg injection 40 mg 40 mg, Intra-articular, ONCE, On Fri05/22/22 at 0800, For 1 dose documented in this encounter Care Teams Filter Cloth Maker Relationship Specialty Start Date End Date Non Pn, Clinician, PCP - General 06/23/20 [place] [address] documented as of this encounter
--- OUTSIDE RECORDS SUMMARY | 2022-06-17 14:41 | XMS_ITS | Encounter Summary ---
:1950 Author Organization [facility] Address [address], [place] [address] Care Team Providers Name Role Phone Non Pn, Clinician MD Primary Care Provider Unavailable Reason for Visit Reason Comments Appt. Needed Encounter Details Date Type Department Care Team Description 01/23/2021 Telephone [facility] Riley Cutler MD Appt. Needed [address] [place] [address] DR Aguiar [place] [address] [place] [address] [phone] (Wo rk) Social History Tobacco Use Types [...] file documented as of this encounter Nursing Sarah Mora P - 01/23/2021 9:24 AM CDT Patient has to have appointment with Dr. Wilkes to discuss future surgery. I left message for patient with phone numbers (my and CC) for scheduling appointment documented in this encounter Plan of Treatment Not on filedocumented as of this encounter Visit Diagnoses Not on filedocumented in this encounter Care Teams Logistics Loss Prevention Manager Relationship Specialty Start Date End Date Non Pn, Clinician, PCP - General 06/23/20 [place] [address] documented as of this encounter
--- OUTSIDE RECORDS SUMMARY | 2022-06-17 14:41 | XMS_ITS | Encounter Summary ---
:1950 Author Organization [employer] Address [address], [place] [address] Care Team Providers Name Role Phone Needs Pcp, Assignment Primary Care Provider Reason for Visit Reason Comments QUESTIONS, GENERAL Encounter Details Date Type Department Care Team Description 06/21/2020 Telephone [facility] Sanjay Murrieta MD QUESTIONS, GENERAL [address] [place] [address] Dr Aguiar [place] [address] [place] [address] [phone] (Wo rk) Social History Tobacco Use Types [...] you been seen for this recently?: no [Voip Network Engineer/Appt Center: If yes, please include date and provider.] Is it okay to leave detailed message on your voicemail? yes [Voip Network Engineer/Appt Center: If this call is after 3 p.m., communicate to patient: If we are not able to get back to you by the end of the day and your symptoms worsen please contact the Careline] documented in this encounter Plan of Treatment Not on filedocumented as of this encounter Visit Diagnoses Not on filedocumented in this encounter Care Teams Supervisor Money Room Relationship Specialty Start Date End Date Needs Pcp, Assignment PCP - General 06/15/20 06/22/20 [place] [address] documented as of this encounter
--- OUTSIDE RECORDS SUMMARY | 2022-06-17 14:41 | XMS_ITS | Encounter Summary ---
:1950 Author Organization [facility] Address [address] [place] [address] Care Team Providers Name Role Phone Non Pn, Clinician Primary Care Provider Unavailable Reason for Visit Reason Onset Date Comments Refill 06/27/2020 Dilaudid 4 mg Encounter Details Date Type Department Care Team Description 06/27/2020 Refill [facility] Sanjay Murrieta MD Refill (Dilaudid 4 mg) [address] [facility] [address] [place] [address] Dr [place], [place] [address] [place] [address] [phone] (Wo rk) Social History Tobacco Use Types [...] pain documented in this encounter Care Teams Plant And Instrument Engineer Relationship Specialty Start Date End Date Non Pn, Clinician, PCP - General 06/23/20 [place] [address] documented as of this encounter
--- OUTSIDE RECORDS SUMMARY | 2022-06-17 14:41 | XMS_ITS | Encounter Summary ---
:1950 Author Organization [employer] Address [address] [place] [address] Care Team Providers Name Role Phone Non Pn, Clinician MD Primary Care Provider Unavailable Reason for Visit Reason Comments Forms Encounter Details Date Type Department Care Team Description 05/17/2021 Telephone [facility] Sanjay Sutton MD Forms [address]ui[address] [place] [address] [place] [address] [phone] (Wo rk) Social History Tobacco Use Types [...] off: Faxed on 04/23 04/27 05/11 to [phone] How would you like to receive your completed form/letter?: Faxed to this fax number: return # on form [Receiving Associate Store: If pt would like this sent anywhere other than to themselves, we need them to sign a Release of Information. Does pt have a current release of information on file?: N/A] Is it okay to leave detailed message on your voicemail?: yes [Receiving Associate Store: Communicate to patient: Forms may take up to 7-10 business days to complete. We will complete it as soon as possible and return to the location you requested.] documented in this encounter Plan of Treatment Not on filedocumented as of this encounter Visit Diagnoses Not on filedocumented in this encounter Care Teams Vocational Technical Education Director Relationship Specialty Start Date End Date Non Pn, Clinician, PCP - General 06/23/20 [place] [address] documented as of this encounter
--- OUTSIDE RECORDS SUMMARY | 2022-06-17 14:41 | XMS_ITS | Encounter Summary ---
:1950 Author Organization [facility] Address [address], [place] [address] Care Team Providers Name Role Phone Non Pn, Clinician MD Primary Care Provider Unavailable Reason for Visit Reason Comments Dental Procedure Antibiotic Prophlaxis Encounter Details Date Type Department Care Team Description 05/17/2021 Telephone [facility] Sanjay Jenkins MD Dental Procedure CENTER [address] [facility] Antibiotic Prophlaxis [address] [place], [place] [address] [address] [phone] (Wo rk) Social History Tobacco Use Types [...] Nursing Notes Danay Hancock, RN - 05/17/2021 9:58 AM CDT Pt of Dr. Murrieta s/p: right total knee arthroplasty, completed on 06/15/2020. Pt has a dental appt coming up and needing form completed. Form completed and faxed back to dental office. Dr. Murrieta protocol needed abx x2 years then only if high risk. Per [facility] note 01/16/2021:] At this point, he will continue with progressive activities. Follow-up at one year post-op. He needsto have some dental work done, so we will call in some prophylactic antibiotics for him. He will call us if he has any other issues. Prescribed last 01/16/2021 #20. documented in this encounter Plan of Treatment Not on filedocumented as of this encounter Visit Diagnoses Not on filedocumented in this encounter Care Teams Loader Operator/Ground Leader Relationship Specialty Start Date End Date Non Pn, Clinician, PCP - General 06/23/20 [place] [address] documented as of this encounter
--- OUTSIDE RECORDS SUMMARY | 2022-06-17 14:41 | XMS_ITS | Encounter Summary ---
:1950 Author Organization [employer] Address [address], [place] [address] Care Team Providers Name Role Phone Non Pn, Clinician MD Primary Care Provider Unavailable Reason for Visit Reason Comments Knee Problem right knee TKA Encounter Details Date Type Department Care Team Description 01/16/2021 Office Visit [facility] Sanjay Murrieta MD Status post total CENTER [address] [facility] right knee [address] [place], [place] replacement (Primary [place], [place] [address] [id number] Dx) [phone] (Wo rk) Social History Tobacco Use Types [...] - 01/16/2021 10:00 AM CDT Merrick Petty [id number] 1950 Orthopaedic Surgery Post-Operative Follow-Up 01/16/2021 History of Present Illness: Merrick Petty is a 70 y.o. male who presents for follow-up regarding his right knee. He is 7 months status post right total knee arthroplasty, completed on 06/15/2020. He just got back from [place]. He was able to golf and do [...] Primary documented in this encounter Care Teams Sodium Methylate Operator Relationship Specialty Start Date End Date Non Pn, Clinician, PCP - General 06/23/20 [place] [address] documented as of this encounter
--- OUTSIDE RECORDS SUMMARY | 2022-06-17 14:41 | XMS_ITS | Encounter Summary ---
:1950 Author Organization [facility] Address [address] [address] Care Team Providers Name Role Phone Non Pn, Clinician MD Primary Care Provider Unavailable Reason for Visit Reason Comments QUESTIONS, GENERAL Encounter Details Date Type Department Care Team Description 12/26/2021 Telephone [facility] Kathi Chen, QUESTIONS, GENERAL [address] [facility] PA-C [place] [id number] [phone] [facility] [phone] [place] [address] (Wo rk) Social History Tobacco Use Types [...] agreement with plan. He is currently in [place] but will make an appt to seen at [facility]. Kathi Fry PA-C - 12/28/2021 7:27 AM [...] to other areas He is currently in [place], and will be returning to [place] next week. Saw [place] provider recently regarding his pain, was prescribed Gabapentin 100mg TID - increasing every 3 days (he has not started this medication). Also given order for PT. Patient requesting provider be updated with this information, and thoughts regarding [place] provider recommendations. Patient was highly encouraged to make visit with provider upon his return to [place] as pain is differentand he has not [...] on filedocumented in this encounter Care Teams Figure Clerk Relationship Specialty Start Date End Date Non Pn, Clinician, PCP - General 06/23/20 [place] [address] documented as of this encounter
--- OUTSIDE RECORDS SUMMARY | 2022-06-17 14:41 | XMS_ITS | Encounter Summary ---
:1950 Author Organization [employer] Address [address] [place] [address] Care Team Providers Name Role Phone Non Pn, Clinician MD Primary Care Provider Unavailable Reason for Visit Procedure/Equipment (Routine) - Incomplete Specialty Diagnoses / Procedures Referred By Contact Refer red To Contact Diagnoses Status post total right knee replacement Sanjay Murrieta MD Procedures XR Knee Rt [address] [place] [address] [address] Referral ID Status Reason Start Date Expiration Date Visits V isits Requested Authorized [id number] Incomplete 06/19/2021 09/18/2022 1 1 Encounter Details Date Type Department Care Team Description 06/19/2021 Ancillary [facility] Sanjay Murrieta MD Status post total Procedure [address] [facility] [address] [facility] [address] right [address] [place], [place] [address] [phone] Social History Tobacco Use Types Packs/Day Years [...] replacement documented in this encounter Care Teams Supervisor Felting Relationship Specialty Start Date End Date Non Pn, Clinician, PCP - General 06/23/20 [place] [address] documented as of this encounter
--- OUTSIDE RECORDS SUMMARY | 2022-06-17 14:41 | XMS_ITS | Encounter Summary ---
:1950 Author Organization [employer] Address [address] [address] Care Team Providers Name Role Phone Needs Pcp, Assignment Primary Care Provider Encounter Details Date Type Department Care Team Description 06/15/2020 Orders Only [facility] ANNE-MARIE ENNIS MD [place], [place] [address] Interface provider [phone] [place] [address] Social History Tobacco Use Types Packs/Day Years [...] Name Priority Date/Time Associated Diagnosis Comme nts EKG 06/15/2020 Results for thi s procedure are in the resu lts section. documented in this encounter Results EKG (06/15/2020) Narrative This result has an attachment that is no t available. Interface Provider EKG documented in this encounter Visit Diagnoses Not on filedocumented in this encounter Care Teams Solar Engineer Relationship Specialty Start Date End Date Needs Pcp, Assignment PCP - General 06/15/20 06/22/20 [place] [address] documented as of this encounter
--- OUTSIDE RECORDS SUMMARY | 2022-06-17 14:41 | XMS_ITS | Encounter Summary ---
:1950 Author Organization [employer] Address [address], [place] [address] Care Team Providers Name Role Phone Non Pn, Clinician MD Primary Care Provider Unavailable Reason for Visit Reason Comments Post-Op Problem Referral Encounter Details Date Type Department Care Team Description 06/23/2020 Emergency [facility] [address] [facility] [place], [place] [address] Social History Tobacco Use Types Packs/Day Years [...] 8-10. rivaroxaban (XARELTO) Take 1 Tablet by 5 Tablet 0 06/15/20 20 06/11/2022 10 MG mouth every evening tabletIndications: with a meal for 5 Thrombosis prevention days. Indications: following orthopedic Thrombosis prevention surgery. following orthopedic surgery. rivaroxaban (XARELTO) Take 1 Tablet by 0 [...] - 06/23/2020 1:09 PM CDT Referred from MARÍA ELENA Jon [phone] by . for post op prob. Background/plan: post op R total knee , r/o infection, labs and aspiration requested, see MARÍA ELENA notes Means of arrival: private vehicle Call back: MARÍA ELENA Gallegos [phone] documented in this encounter Plan of Treatment [...] Results (ABNORMAL) Differential (06/23/2020 3:28 PM CDT) [facility] Method Time Signature RBC Morphology Reviewed 06/23/2020 [facility] 4:07 PM CDT LABORATORY Platelet Adequate Adequate 06/23/2020 [facility] Estimate 4:07 PM CDT LABORATORY Myelocyte 0.1 (H) <=0.0 06/23/2020 [facility] Absolute 10(9)/L 4:07 PM CDT LABORATORY Neutrophil 11.5 (H) 1.7 - 7.0 06/23/2020 [facility] Absolute 10(9)/L 4:07 PM CDT LABORATORY Lymphocyte 1.7 1.0 - 4.8 06/23/2020 [facility] Absolute 10(9)/L 4:07 PM CDT LABORATORY Monocytes 1.7 (H) 0.2 - 0.9 06/23/2020 [facility] Absolute 10(9)/L 4:07 PM CDT LABORATORY Eosinophil 0.0 0.0 - 0.5 06/23/2020 [facility] Absolute 10(9)/L 4:07 PM CDT LABORATORY Basophil 0.0 0.0 - 0.3 06/23/2020 [facility] Absolute 10(9)/L 4:07 PM CDT LABORATORY Specimen Anatomical Collection Method / Collection Time Recei salud Time (Source) Location / Volume Laterality Blood Venipuncture / 06/23/2020 3:28 06/23/2020 3:32 Unknown PM CDT PM CDT Steve Graves MD LAB_1 Performing Organization Address City/[facility] Phon e Number [facility] [address] [place] [address] Extra Gold/SST Tube (06/23/2020 3:28 PM CDT) [facility] gist Method Time Signature Extra Specimen 06/23/2020 [facility] Gold/SST Tube will be held 5:01 PM CDT LABORATORY Drawn for 5 days Specimen Anatomical Collection Method / Collection Time Recei salud Time (Source) Location / Volume Laterality Blood Venipuncture / 06/23/2020 3:28 06/23/2020 3:34 Unknown PM CDT PM CDT Steve Graves MD LAB_1 Performing Organization Address City/State/[facility] Phon e Number [facility] [address] [place] [address] Extra Blue top tube (06/23/2020 3:28 PM CDT) Patholo gist Method Time Signature Extra Blue Specimen 06/23/2020 [facility] Top Drawn will be held 5:01 PM CDT LABORATORY for 3 days Specimen Anatomical Collection Method / Collection Time Recei salud Time (Source) Location / Volume Laterality Blood Venipuncture / 06/23/2020 3:28 06/23/2020 3:34 Unknown PM CDT PM CDT Steve Graves MD LAB_1 Performing Organization Address [facility] Phon e Number [facility] [address] [place] [address] (ABNORMAL) Complete Blood Count-W/Diff (06/23/2020 3:28 PM CDT) [facility] Method Time Signature WBC 15.0 (H) 3.5 - 06/23/2020 [facility] 10.5 4:07 PM CDT LABORATORY x10(9)/L RBC 3.72 (L) 4.32 - 06/23/2020 [facility] 5.72 4:07 PM CDT LABORATORY x10(12)/L Hemoglobin 12.1 (L) 13.5 - 06/23/2020 [facility] 17.5 g/dL 4:07 PM CDT LABORATORY HCT 37.8 (L) 38.8 - 06/23/2020 [facility] 50.0 % 4:07 PM CDT LABORATORY MCV 101.6 (H) 80.0 - 06/23/2020 [facility] 100.0 fL 4:07 PM CDT LABORATORY MCH 32.5 27.6 - 06/23/2020 [facility] 33.3 pg 4:07 PM CDT LABORATORY MCHC 32.0 31.5 - 06/23/2020 [facility] 35.2 g/dL 4:07 PM CDT LABORATORY RDW 13.5 11.9 - 06/23/2020 [facility] 15.5 % 4:07 PM CDT LABORATORY Platelets 328 150 - 450 06/23/2020 [facility] x10(9)/L 4:07 PM CDT LABORATORY Automated NRBC 0 <=0 /100 06/23/2020 [facility] WBC 4:07 PM CDT LABORATORY Specimen Anatomical Collection Method / Collection Time Recei salud Time (Source) Location / Volume Laterality Blood Venipuncture / 06/23/2020 3:28 06/23/2020 3:32 Unknown PM CDT PM CDT Steve Graves MD LAB_1 Performing Organization Address [facility] Phon e Number [facility] [address] [place] [address] (ABNORMAL) Basic Metabolic Panel (06/23/2020 3:28 PM CDT) [facility] Method Time Signature Sodium 132 (L) 136 - 145 06/23/2020 [facility] mmol/L 4:02 PM CDT LABORATORY Potassium 4.7 3.5 - 5.1 06/23/2020 [facility] mmol/L 4:02 PM CDT LABORATORY Chloride 95 (L) 98 - 109 06/23/2020 [facility] mmol/L 4:02 PM CDT LABORATORY CO2 30 (H) 20 - 29 06/23/2020 [facility] mmol/L 4:02 PM CDT LABORATORY Anion Gap 7 7 - 16 06/23/2020 [facility] mmol/L 4:02 PM CDT LABORATORY Calcium 9.2 8.4 - 10.4 06/23/2020 [facility] mg/dL 4:02 PM CDT LABORATORY BUN 16 7 - 26 06/23/2020 [facility] mg/dL 4:02 PM CDT LABORATORY Creatinine 0.64 (L) 0.73 - 06/23/2020 [facility] 1.18 mg/dL 4:02 PM CDT LABORATORY GFR, Estimated >60 >60 06/23/2020 [facility] mL/min/1.7 4:02 PM CDT LABORATORY 3m2 Glucose 125 (H) 70 - 100 06/23/2020 [facility] mg/dL 4:02 PM CDT LABORATORY Comment: The given reference range is fo r the fasting state. Non-fasting reference range for glucose is 70 - 180 mg/dL. Specimen Anatomical Collection Method / Collection Time Recei salud Time (Source) Location / Volume Laterality Blood Venipuncture / 06/23/2020 3:28 06/23/2020 3:32 Unknown PM CDT PM CDT Steve Graves MD LAB_1 Performing Organization Address City/State/ZIP Code [facility] [place] [facility] e Number [facility] [address] [place] [address] documented in this encounter Visit Diagnoses Triage [...] infection. documented in this encounter Care Teams Student Development Dean Relationship Specialty Start Date End Date Non Pn, Clinician, PCP - General 06/23/20 [place] [address] documented as of this encounter
--- OUTSIDE RECORDS SUMMARY | 2022-06-17 14:41 | XMS_ITS | Clinical Summary ---
:1950 Author Organization [facility] Address [address], [place] [address] Care Team Providers Name Role Phone Non [...] for each transition of care or referral. [employer] Allergies No known active allergies Medications Medication Sig Dispensed Refills Start End Date Status Date spironolactone Take 12.5 mg by 0 Active (ALDACTONE) 25 MG mouth daily. tabletIndications: Indications: High Hypertension Blood Pressure Disorder sacubitril-valsarta Take 1 Tablet by 0 Active n (ENTRESTO) 97-103 mouth two times a MG tablet day. rOPINIRole (REQUIP) Take 1 mg by 0 Active 1 MG tablet mouth daily at bedtime. sotalol (BETAPACE) Take 120 mg by 0 Active 120 MG mouth two times a tabletIndications: day. Indications: Atrial Fibrillation Atrial Fibrillation levothyroxine Take 1 Tablet by 0 Active (SYNTHROID) 200 MCG mouth daily. 0 tablet rivaroxaban Take 1 Tablet by 5 Tablet 0 06/11/20 D iscontinued (XARELTO) 10 MG mouth every 0 22 tabletIndications: evening with a Thrombosis meal for 5 days. prevention Indications: following Thrombosis orthopedic surgery. prevention following orthopedic surgery. amoxicillin Take 4 capsules 20 Capsule 0 06/11/20 D iscontinued (AMOXIL) 500 MG by mouth 1 hour 1 22 capsuleIndications: prior to dental Infection work. Prophylaxis in Indications: Prosthetic Treatment to Arthroplasty Prevent Infection in Prosthetic Arthroplasty Active Problems Problem Noted Date Primary cardiomyopathy 06/16/2020 Idiopathic hypotension 06/16/2020 Status post total right knee replacement 06/15/2020 Overview: By Dr. Murrieta at [facility]. 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 (HRC) (Primary Dx) 05/22/2022 Ancillary Interventional Pain Tra Remy Left h ip pain Procedure Tremaine Wills MD 05/22/2022 Telephone Orthopedics Tra Remy GE NERAL K, MD 05/21/2022 Ancillary Radiology PN Tra Remy Left hip pain Susan Wills MD 05/21/2022 Office Visit Orthopedics Tra Remy Left hip pain MD Elma (Primary Dx) from Last 3 Months Social History Tobacco Use Types Packs/Day Years [...] Mass Index 34.09 05/29/2022 8:37 AM CDT Plan of Treatment Health Maintenance Due Date Last Done Comments Colon Cancer Screening Plan 1950 Due Hep C Screening (Preventive 1950 Services) Medicare Annual Wellness 1950 Visit COVID-19 Vaccine (#1) 1950 Cholesterol 1985 Zoster/Shingles (2 of 3) 08/19/2013 06/24/2013 Pneumococcal 65+ Yrs (2 - 11/27/2016 11/28/2015 PCV) Influenza (#1) 2022 07/19/2021, 07/09/2019, 06/24/2013 DTaP/Tdap/Td (2 - Tdap) 05/14/2032 05/14/2022 HepA Aged Out No longer eligib le [...] to pic Medical Devices Implanted Type Area Mobile Nurse Device Shelf Model / Serial Identifier Expiration / Lot Date Asf Ps Ve 10mm 1012 Rt - [id number] DEVICE Right: [employer] 04/28/2021 [id number] / Implanted: Qty: 1 on 06/15/2020 by Sanjay Murrieta MD at [facility] KNEE / [id number] Procedures Procedure Name Priority Date/Time Associated Diagnosis Comme nts FL INJECTION HIP LT Routine 05/22/2022 7:56 AM Left hip pain R esults for this CDT procedure are i n the results section. XR HIP LT 2 VIEWS Routine 05/21/2022 2:24 PM Left hip pain Res ults for this CDT procedure are i n the results section. XR PELVIS 1-2 VIEWS Routine 05/21/2022 2:24 PM Left hip pain R esults for this CDT procedure are i n the results section. from Last 3 Months Results FL Injection Hip Lt (05/22/2022 7:56 [...] 0/10 immediately following the injection. Procedure Note lEe Clifford PA-C - 05/22/2022Formatt ing of this [...] injection. Tra Remy MD RAD FL XR Pelvis 1-2 Views (05/21/2022 2:24 PM CDT) Anatomical Region Laterality Modality Pelvis Digital Radiography Specimen (Source) Anatomical Collection Method Collection Time Re ceived Time Location / / Volume Laterality 05/21/2022 2:24 PM CDT Impressions 05/21/2022 3:34 PM CDT COMPARISON: ??None. FINDINGS: ??Bone detail is suboptimal. N o definite fracture identified. There are mild right and dxej-ec-elnjgmji left degenerative changes in the hips. Procedure Note Vidal Issa MD - 05/21/2022Forma tting of this note might be different from the original. IMPRESSION COMPARISON: None. FINDINGS: Bone detail is suboptimal. No definite fracture identified. There are mild right and drjd-oj-izngozoa left degenerative changes in the hips. Tra Remy MD RAD GD XR Hip Lt 2 Views (05/21/2022 2:24 PM CDT) Anatomical Region Laterality Modality Pelvis, Hip Digital Radiography Specimen (Source) Anatomical Collection Method Collection Time Re ceived Time Location / / Volume Laterality 05/21/2022 2:24 PM CDT Impressions 05/21/2022 3:34 PM CDT COMPARISON: ??None. FINDINGS: ??Bone detail is suboptimal. N o definite fracture identified. There are mild right and dtpo-rr-kkiygukj left degenerative changes in the hips. Procedure Note Vidal sIsa MD - 05/21/2022Forma tting of this note might be different from the original. IMPRESSION COMPARISON: None. FINDINGS: Bone detail is suboptimal. No definite fracture identified. There are mild right and dwdd-tt-rpvefrxc left degenerative changes in the hips. Tra Remy MD RAD GD from Last 3 Months Insurance Payer Benefit Plan / Subscriber ID Effective Dates Phone Addre ss Type Group MEDICARE MEDICARE [id number] 2015-Presen [phone] M edicare MANAGED CARE t 65 BCBS BCBS BCBS [place]ANGE[place] [id number] 2016-PresPico[employer] [phone] [address] [address] Medicare [place] t [address] [place] [phone] Merrick Petty Personal/Family Self [phone] (Home) [place] [address] Advance Directives Latest Code Status on File Code Status Date Activated Date Inactivated Comments Full Code 06/15/2020 2:08 PM 06/17/2020 2:45 PM Care Teams Keg Inspector Relationship Specialty Start Date End Date Non Pn, Clinician, PCP - General 06/23/20 [place] [address]
--- OUTSIDE RECORDS SUMMARY | 2022-06-17 14:41 | XMS_ITS | Encounter Summary ---
:1950 Author Organization [facility] Address [address], [place] [address] Care Team Providers Name Role Phone Non Pn, Clinician Primary Care Provider Unavailable Encounter Details Date Type Department Care Team Description 09/14/2021 Notes/Orders [facility] Sanjay Sutton MD [address] [facility] [place] [address] [place] [address] [phone] (Wo rk) Social History Tobacco Use Types [...] on filedocumented in this encounter Care Teams Chemical Treatment Operator Relationship Specialty Start Date End Date Non Pn, Clinician, PCP - General 06/23/20 [place] [address] documented as of this encounter
--- OUTSIDE RECORDS SUMMARY | 2022-06-17 14:42 | XMS_ITS | Encounter Summary ---
:1950 Author Organization [facility] Address [address] [place] [address] Care Team Providers Name Role Phone Pcp, Pt Declines Primary Care Provider Reason for Visit Reason Comments QUESTIONS, GENERAL Encounter Details Date Type Department Care Team Description 06/06/2020 Telephone [facility] Riley Cutler MD QUESTIONS, GENERAL [address] [facility] [address] [place] [address] [place] [address] [phone] (Wo rk) Social History Tobacco Use Types [...] DR SALINAS Where was the test done: [facility] When did you have it done: 05/24/2020 If a prescription is needed, would you like it filled at our [facility]??? pharmacy? [Computational Biologist/Appt Center: Was the pharmacy entered into the Preferred Pharmacy field? No] Is it okay to leave detailed message on your voicemail? YES [Computational Biologist/Appt Center: If this call is after 3 p.m., communicate to patient: If we are not able to get back to you by the end of the day and your symptoms worsen please contact the Careline] [Computational Biologist: Inform patient that if they are active [...] on filedocumented in this encounter Care Teams Line Service Person Relationship Specialty Start Date End Date Pcp, Skinny Rosario MD PCP - General 07/14/18 06/14/20 [place], [place] [address] documented as of this encounter
--- OUTSIDE RECORDS SUMMARY | 2022-06-17 14:42 | XMS_ITS | Encounter Summary ---
:1950 [address] Address [address] [address] Care Team Providers Name Role Phone Non Pn, Clinician Primary Care Provider Unavailable Encounter Details Date Type Department Care Team Description 06/15/2020 Notes/Orders [facility] TER Sanjay Murrieta MD [address] [facility] [place] [address] [place] [address] [phone] (Wo rk) Social History Tobacco Use Types [...] on filedocumented in this encounter Care Teams Internet Researcher Relationship Specialty Start Date End Date Non Pn, Clinician, PCP - General 06/23/20 [place] [address] documented as of this encounter
--- OUTSIDE RECORDS SUMMARY | 2022-06-17 14:42 | XMS_ITS | Encounter Summary ---
:1950 Author Organization [facility] Address [address], [place] [address] Care Team Providers Name Role Phone Needs [...] Department Care Team Description 06/15/2020 Anesthesia Event [facility]ybeterian Operating Lyndon Araiza MD [address] [place], [place] [address] Levi Coughlin APRN, CRNA [address] [place], [place] [address] [address] [facility] [place], [place] [id number] Anesthesia Record Procedure Summary Procedure Name Responsible Anesthesia Start Anesthesia Stop Anesthesiologist Time Time TOTAL KNEE JOINT Ta Araiza MD 06/15/20 1039 06/15/20 13 06 REPLACEMENT (Right: Knee) Events Date Time Event Comment 06/15/2020 1039 An Start 1039 Quick Note Anesthesia start time denotes sedation started by BOARD HAMMER OPERATOR currently o n case; patient continuously monitored to O.R . By BOARD HAMMER OPERATOR 1041 / Present 1042 An Start Data [...] Vásquez MD - 06/15/2020 2:12 PM CDT [facility] Anesthesia Post-op Note Patient: Merrick Petty Post-Op [...] in Introducer needle used Attempts: 1 Monitoring: manager air and continuous pulse ox CSF: adequate CSF flow from spinal needle Paresthesias: No Local anesthetic: Bupivacaine 0.75 % Dose 2 mL Events: None Complications: none Pt tolerated procedure well Notes: Ta Araiza MD Anesthesia Preprocedure Evaluation - Ta Araiza MD - 06/15/2020 8:22 AM CDT [facility] Anesthesia Pre-op Evaluation Procedure: Procedure(s): Right - [...] benefits and alternatives discussed with: Patient or Unemployment Examiner agree tothe anesthesia treatment plan and Patient. [...] in Introducer needle used Attempts: 1 Monitoring: manager air and continuo us pulse ox CSF: ??adequate [...] mg/minute. To be given in OR by BOARD HAMMER OPERATOR prior to incision. Re-dose 1000 mg IV during wound closure., Pre-op Started 06/15/2020 10:54 AM CDT 1,000 mg documented in this encounter Care Teams Deputy General Counsel Relationship Specialty Start Date End Date Needs Pcp, Assignment PCP - General 06/15/20 06/22/20 [place] [address] documented as of this encounter
--- OUTSIDE RECORDS SUMMARY | 2022-06-17 14:42 | XMS_ITS | Encounter Summary ---
:1950 Author Organization [facility] Address [address], [place] [address] Care Team Providers Name Role Phone Pcp, Pt Declines MD Primary Care Provider Reason for Visit Procedure/Equipment (Routine) - Incomplete Specialty Diagnoses / Procedures Referred By Contact Refer red To Contact Diagnoses Pain, joint, ankle and foot, right Riley Wilkes MD Procedures CT Ankle Rt WO IV Cont [address] [facility] [place], [place] [address] Referral ID Status Reason Start Date Expiration Date Visits V isits Requested Authorized [id number] Incomplete 05/15/2020 08/14/2021 1 1 Encounter Details Date Type Department Care Team Description 05/24/2020 Ancillary [place] Riley Mejia, Pain, kya nt, ankle Procedure [place] [address] [address] MD and foot, right Scan [address] [facility] [address] [place], [place] [address] [address] [place], [place] [phone] [address] (Work) [phone] Social History Tobacco Use Types Packs/Day Years [...] right documented in this encounter Care Teams Esol Instructor Relationship Specialty Start Date End Date Pcp, Skinny Rosario MD PCP - General 07/14/18 06/14/20 [place] [address] documented as of this encounter
--- OUTSIDE RECORDS SUMMARY | 2022-06-17 14:42 | XMS_ITS | Encounter Summary ---
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) Kathi Fry PA-C Procedures FL C Arm 20 Pain Management [address] [facility] [place], [place] [address] Referral ID Status Reason Start Date Expiration Date Visits V isits Requested Authorized [id number] Incomplete 12/08/2019 03/08/2021 1 1 Encounter Details Date Type Department Care Team Description 12/08/2019 Notes/Orders [facility] Kathi Fry Spond ylosis of lumbar [facility]Y region without [address] [facility] [address] [facility] myelopathy or [place], [place] [address] [place], [place] radiculopathy (Primary [phone] Dx) Social History Tobacco Use Types Packs/Day [...] filedocumented as of this encounter Results FL C Arm 20 Pain Management (02/07/2020 12:47 PM CDT) Anatomical Region Laterality Modality Radiographic Imaging Specimen (Source) Anatomical Location Collection Method / Collectio n Time Received Time / Laterality Volume Narrative 02/07/2020 12:54 PM CDT Images obtained during surgical procedure. Kathi STROUD [place] documented in this encounter Visit Diagnoses Diagnosis Spondylosis of lumbar region without mye lopathy or radiculopathy (HRC) - Primary Lumbosacral spondylosis without myelopat hy Spondylosis of lumbar region without mye lopathy or radiculopathy (HRC) Lumbosacral spondylosis without myelopat hy documented in this encounter Care Teams Shirring Machine Operator Relationship Specialty Start Date End Date Pcp, Pt MD Abraham PCP - General 07/14/18 06/14/20 [place] [address] documented as of this encounter
--- OUTSIDE RECORDS SUMMARY | 2022-06-17 14:42 | XMS_ITS | Encounter Summary ---
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) Steve Tapia MD Procedures [facility] [address] [facility] [address] [place] [address] Referral ID Status Reason Start Date Expiration Date Visits Requ ested Visits Authorized [id number] Closed 02/07/2020 05/08/2021 1 1 Reason for Visit Reason Comments Procedure Procedure/Equipment (Routine) - Incomplete Specialty Diagnoses / Procedures Referred By Contact Refer red To Contact Diagnoses 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) Kathi Fry PA-C Procedures FL C Arm 20 Pain Management [address] [facility] [address] [place] [address] Referral ID Status Reason Start Date Expiration Date Visits V isits Requested Authorized [id number] Incomplete 12/08/2019 03/08/2021 1 1 Encounter Details Date Type Department Care Team Description 02/07/2020 Procedure Visit [facility] Kathi Fry PA-C [address] [place] [address] Procedure [address] [facility] [address] Steve Tapia MD [address] [facility] [place] [address] [place] [address] 1 2, Alessandro Eleazar Rn [phone] Social History Tobacco Use Types Packs/Day Years [...] with Kathi ARMAS in 10-14 days; call [phone] to schedulean appointment if you do not already have one Facet Injection Post-Procedure Instructions: ?? Rest today, you may resume your normal activities tomorrow (Physical Therapy & child care lead teacher can also be resumed next day). ?? [...] and Anesthesiologist Please contact the Pain Nurse ([phone]) for all medical/procedural questions regarding your care at the [facility] Please contact our Train Operations Supervisor ([phone]) for all administrative/scheduling questions related to the [...] completed, patient verbalizes understanding. Confirmed pt has yard driver home. Consent per MD. Tabatha Torres [...] well and was discharged home, with a yard driver, in stable condition with post procedural [...] hy documented in this encounter Care Teams Exchange Architect Relationship Specialty Start Date End Date Pcp, Skinny Rosario MD PCP - General 07/14/18 06/14/20 [place] [address] documented as of this encounter
--- OUTSIDE RECORDS SUMMARY | 2022-06-17 14:42 | XMS_ITS | Encounter Summary ---
:1950 Author Organization [employer] Address [address], [place] [address] Care Team Providers Name Role Phone Pcp, Pt Declines Primary Care Provider Reason for Visit Procedure/Equipment (Routine) - Incomplete Specialty Diagnoses / Procedures Referred By Contact Refer red To Contact Diagnoses Pain, joint, ankle and foot, right Riley Wilkes MD Procedures XR Foot Rt 3+ Views [address] [address] Referral ID Status Reason Start Date Expiration Date Visits V isits Requested Authorized [id number] Incomplete 05/15/2020 08/14/2021 1 1 Encounter Details Date Type Department Care Team Description 05/15/2020 Ancillary [facility] Riley Wilkes, Pain, joint, ankle and foot, left; Procedure [address] [place] Pain, joint, ankle and foot, right Drive [address] [address] [place], [place] [address] [phone] Social History Tobacco Use Types Packs/Day Years [...] right documented in this encounter Care Teams Medical Billing Manager Relationship Specialty Start Date End Date PcpSkinny MD PCP - General 07/14/18 06/14/20 [place] [address] documented as of this encounter
--- OUTSIDE RECORDS SUMMARY | 2022-06-17 14:42 | XMS_ITS | Encounter Summary ---
:1950 Author Organization [facility] Address [address], [place] [address] Care Team Providers Name Role Phone Pcp, Pt Declines MD Primary Care Provider Encounter Details Date Type Department Care Team Description 06/11/[address] [facility], Drive-Up Osteoarthritis of right [address] knee, [place] [address] osteoarthritis type [phone] Social History Tobacco Use Types Packs/Day Years [...] Novel Coronavirus (COVID-19) (06/11/2020 7:49 AM CDT) [facility] Method Time Signature COVID-19 Not Not 06/12/2020 [facility] Interpretation Detected Detected 2:44 AM CENTRAL LAB CDT Specimen Anatomical Collection Method Collection Time Receive d Time (Source) Location / / Volume Laterality Swab (Source Non-blood 06/11/2020 7:49 AM 0 Required) Collection / CDT 10:35 AM CDT Unknown Narrative [facility] - 06/12/2020 2:44 AM CDT Testing has been performed by Tank Tender Mediated Amplification. This test has been authorized by the FDA under an Emergency Use Authorization (EUA) for use by authorized laboratories. Sanjay Murrieta MD LAB_1 Performing Organization Address City/State/ZIP Code Phon e Number [facility] [address] [phone] documented in this encounter Visit Diagnoses Diagnosis Osteoarthritis of right knee, unspecifie d osteoarthritis type documented in this encounter Care Teams Flag Signaler Relationship Specialty Start Date End Date Pcp, Skinny Rosario MD PCP - General 07/14/18 06/14/20 [place] [address] documented as of this encounter
--- OUTSIDE RECORDS SUMMARY | 2022-06-17 14:42 | XMS_ITS | Encounter Summary ---
:1950 Author Organization [facility] Address [address] [place] [address] Care Team Providers Name Role Phone Pcp, Pt Declines Primary Care Provider Reason for Visit Reason Comments RESULTS, TEST CT scan Encounter Details Date Type Department Care Team Description 05/30/2020 Telephone TRIRiley Longoria MD RESULTS, TEST (CT CENTER [address] [facility] [address] scan) [address] [place], [place] [phone] (Wo rk) Social History Tobacco Use Types [...] filedocumented in this encounter Care Teams Supervisor Yard Relationship Specialty Start Date End Date Pcp, Skinny Rosario MD PCP - General 07/14/18 06/14/20 [place] [address] documented as of this encounter
--- OUTSIDE RECORDS SUMMARY | 2022-06-17 14:42 | XMS_ITS | Encounter Summary ---
:1950 Author Organization [facility] Address [address] [place] [address] Care Team Providers Name Role Phone Pcp, Pt Declines Primary Care Provider Reason for Referral Consult/Transfer Care (Routine) - Closed Specialty Diagnoses / Procedures Referred By Contact Refer red To Contact Diagnoses Pes planus of both feet Aba Lemus APRN, CNP [address] [facility] [place] [address] Referral ID Status Reason Start Date Expiration Date Visits Requ ested Visits Authorized [id number] Closed 03/20/2020 09/16/2020 1 1 Scheduling Instructions [...] CENTER FLAKITA HUITRON feet (Primary Dx) [address] [facility] [address] [facility] [place] [address] [place] [phone] (Wo rk) Social History Tobacco Use Types [...] as of this encounter Plan of Treatment Scheduled Referrals Name Type Priority Associated Diagnoses Order S chedule [facility] [employer] CONSULT (AMB) Referral Routine Pes planus of bot h feet Ordered: 03/20/2020 documented as of this encounter Visit Diagnoses Diagnosis Pes planus of both feet - Primary documented in this encounter Care Teams Caregiver Services Home Relationship Specialty Start Date End Date Pcp, Skinny Rosario MD PCP - General 07/14/18 06/14/20 [place] [address] documented as of this encounter
--- OUTSIDE RECORDS SUMMARY | 2022-06-17 14:42 | XMS_ITS | Encounter Summary ---
:1950 Author Organization [employer] [facility] Address [address] [place] [address] Care Team Providers Name Role Phone Pcp, Pt Declines Primary Care Provider Reason for Visit Reason Comments QUESTIONS, GENERAL MRSA/MSSA swab Encounter Details Date Type Department Care Team Description 06/07/2020 Telephone [facility] Steubs, aSnjay Hanna MD QUESTIONS, GENERAL CENTER [address] [place] [address] (MRSA/MSSA swab) [address] [place], [place] [phone] (Wo rk) Social History Tobacco Use Types [...] came back negative and results forwarded onto [facility]. Theresa Levine RN - 06/08/2020 9:42 AM CDT Spoke with the patient and he is getting the test done today and he was told by the doctor that the results would be back tomorrow. Mentioned that he should fax the results to [facility] and number given. Said I would [...] on filedocumented in this encounter Care Teams Handle Finisher Relationship Specialty Start Date End Date Skinny Peralta MD PCP - General 07/14/18 06/14/20 [place] [address] documented as of this encounter
--- OUTSIDE RECORDS SUMMARY | 2022-06-17 14:42 | XMS_ITS | Encounter Summary ---
:1950 Author Organization [employer] Address [address], [place] [address] Care Team Providers Name Role Phone Pcp, Pt Declines Primary Care Provider Reason for Visit Reason Comments Pre-procedure Call Encounter Details Date Type Department Care Team Description 02/02/2020 Telephone [facility] Lilia Carrillo RN Pre-procedure Call [address] [place], [place] [address] Social History Tobacco Use Types [...] Allergy (Cervicals must be pre-medicated) Must have route delivery service driver home. Reviewed NSAID use with patient: [...] on filedocumented in this encounter Care Teams Frit Mixer Relationship Specialty Start Date End Date Pcp, Pt MD Abraham PCP - General 07/14/18 06/14/20 [place] [address] documented as of this encounter
--- OUTSIDE RECORDS SUMMARY | 2022-06-17 14:42 | XMS_ITS | Encounter Summary ---
:1950 Author Organization [facility] Address [address] [place] [address] Care Team Providers Name Role Phone Pcp, Pt Declines Primary Care Provider Reason for Visit Reason Comments QUESTIONS, GENERAL Encounter Details Date Type Department Care Team Description 06/02/2020 Telephone [facility] Sanjay Murrieta MD QUESTIONS, GENERAL [address] [facility] [address] [place] [address] [place] [address] [phone] (Wo rk) Social History Tobacco Use Types [...] this encounter Nursing Notes Bisi Franco - 06/06/2020 1:19 PM CDT Spoke to patient and he is good to go and keep surgery on 06/15/2020. Bre Reynoso - 06/02/2020 9:57 AM CDT Has the patient recently had surgery or an injury? No How may we help you today? Patient would like to speak with you about rescheduling his surgery. Describe your symptoms/concerns: n/a When did the issue start: n/a Have you been seen for this recently?: n/a [Service Crew Supervisor/Appt Center: If yes, please include date and provider.] Is it okay to leave detailed message on your voicemail? Yes [Service Crew Supervisor/Appt Center: If this call is after 3 p.m., communicate to patient: If we are not able to get back to you by the end of the day and your symptoms worsen please contact the Careline] documented in this encounter Plan of Treatment Not on filedocumented as of this encounter Visit Diagnoses Not on filedocumented in this encounter Care Teams Fraud Manager Relationship Specialty Start Date End Date Skinny Peralta MD PCP - General 07/14/18 06/14/20 [place] [address] documented as of this encounter
--- OUTSIDE RECORDS SUMMARY | 2022-06-17 14:42 | XMS_ITS | Encounter Summary ---
:1950 Author Organization [facility] Address [address] [place] [address] Care Team Providers Name Role Phone Pcp, Pt Declines Primary Care Provider Reason for Referral (Routine) - Closed Specialty Diagnoses / Procedures Referred By Contact Refer red To Contact Diagnoses Osteoarthritis of right knee, unspecified osteoarthritis type Dyllan Teresa MD Procedures Triamcinolone Acet Inj Nos: (per 10 mg) [address] [facility] [address] [place] [address] Referral ID Status Reason Start Date Expiration Date Visits Requ ested Visits Authorized [id number] Closed 04/16/2019 07/15/2020 1 1 Reason for Visit Reason Comments Knee Problem bilat knee pain Encounter Details Date Type Department Care Team Description 04/15/2019 Procedure Visit [facility] Dyllan Teresa, Knee Problem (bilat CENTER knee pain) [address] [facility] [address] [facility] [address] [facility] [address] [facility] [place] [place] [address] [phone] Social History Tobacco Use Types Packs/Day Years [...] CDT Dr. Dyllan Teresa MD Orthopaedic Surgeon Waste And Batting Waste Chopper: Monique Candelaria Please contact Monique for all administrative questions at [phone] Nurse: Magaly Connolly Please contact Magaly for any medical questions at [phone] Medication Requests: Prescriptions are not filled on Weekends or on Weekdays after 3:00PM For all medication refills: Request a refill using Mind[employer] or contact your Pharmacy The right knee was injected with Kenalog-80 and lidocaine. Avoid Strenuous Activity for the remainder of the day and avoid activities that cause pain for one to two weeks following the injection. Signs and Symptoms to watch for: If you have any redness, warmth or increasing pain at the site of the injection or develop a fever, please call [phone] Follow up as needed with documented in this encounter Progress Notes Dyllan Teresa MD - 04/15/2019 12:00 PM CDT NAME: RAIN CENTENO MR#: [id number] CSN: [id number] AUTHENTICATING CLINICIAN: Dyllan Teresa MD CONFIRM #: [...] Primary documented in this encounter Care Teams Engineering Faculty Relationship Specialty Start Date End Date PcpSkinny MD PCP - General 07/14/18 06/14/20 [place] [address] documented as of this encounter
--- OUTSIDE RECORDS SUMMARY | 2022-06-17 14:42 | XMS_ITS | Encounter Summary ---
:1950 Author Organization [employer] [facility] [employer] [facility] Address [address] [address] Care Team Providers Name Role Phone Pcp, Pt Declines Primary Care Provider Reason for Referral (Routine) - Closed Specialty Diagnoses / Procedures Referred By Contact Refer red To Contact Diagnoses Primary osteoarthritis of both knees Cari Estevez MD Procedures Dexamethasone Sodium Phos (per 1 mg) [address] [facility] [place] [address] Referral ID Status Reason Start Date Expiration Date Visits Requ ested Visits Authorized [id number] Closed 03/15/2020 06/14/2021 1 1 Reason for Visit Reason Comments Knee Pain or Injury Encounter Details Date Type Department Care Team Description 03/15/2020 Office Visit [facility] Cari Cruz y osteoarthritis of both knees (Primary Dx); BAKARI Vasquez MD Complex tear of medial meniscus of knee as current injury, unspecified laterality, subsequent encounter; [address] [address] [facility] Complex tear of lateral meniscus of righ t knee as current injury, [place] [address] [phone] Social History Tobacco Use Types Packs/Day Years [...] injection or develop a fever, please call [phone] Thank you for enrolling in [employer]. Please follow the instructions below to securely access your online medical record. [employer] allows you to send messages to your doctor, view your test results, schedule appointments, and more. How Do I Sign Up? To get started, all you have to do is follow a few simple steps: 1. Visit [email or web address] 2. Enter the activation code, as shown below; your last name; and your date of Your Activation Code: [email or web address] Expires: 04/14/2020 1:41 PM 3. Create your username and password Additional Information If you have questions about creating your account, the Website Support team is here to help between 8 am and 5 pm Friday through Friday. They are available by clicking the Contact Us link on the website or by phone at [phone]. documented in this encounter Progress Notes Cari Estevez MD - 03/15/2020 1:40 PM CDT Merrick Petty [id number] 1950 [facility] Consultation 03/15/2020 Chief Complaint: Bilateral Knee Pain [...] try and limit. Will defer on lateral programmer analyst health it braces for now. Procedure: Knee Corticosteroid Injection: [...] 20 minutes Referring Provider: PATIENT SELF REFERRAL, [place] [address] Primary Care Provider: [facility] [address] Scribe Disclosure: Scribed for Cari Estevez MD by Johanna Grey Glass Furnace Tender. I, Cari Estevez MD, have personally reviewed [...] encounter documented in this encounter Care Teams Edge Inker Heels Relationship Specialty Start Date End Date Pcp, Pt MD Abraham PCP - General 07/14/18 06/14/20 [place] [address] documented as of this encounter
--- OUTSIDE RECORDS SUMMARY | 2022-06-17 14:42 | XMS_ITS | Encounter Summary ---
:1950 Author Organization [facility] Address [address] [place] [address] Care Team Providers Name Role Phone Pcp, Pt Declines Primary Care Provider Reason for Visit Reason Comments MRI Results lumbar Encounter Details Date Type Department Care Team Description 12/30/2018 Office Visit [facility] Kathi Fry Lumba r spondylosis [facility] (Primary Dx) [address] [place] [address] [place] [address] [place], [place] [phone] (Wo rk) Social History Tobacco Use Types [...] AM CDT Kathi Fry PA-C Orthopaedic Spine Die Tester: Maxine Fatima Please contact Bela for all administrative questions at [phone] Please contact the Spine Nurse for all medical related questions at [phone] Office Hours: Friday, Friday, Friday Medication Requests: Prescriptions are not filled on Weekends or on Week after 3:00PM For all medication refills: Request a refill using InferX or contact your Pharmacy Please determine coverage [...] Radiofrequency ablation You can always call my rn staffing to schedule those. documented in this encounter Progress Notes Kathi Fry PA-C - 12/30/2018 9:30 AM CDT Merrick Petty [id number] 1950 [facility] Follow-Up 12/30/2018 History of Present Illness: [...] and L5-S1 levels as detailed above. 3. 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
--- OUTSIDE RECORDS SUMMARY | 2022-06-17 14:42 | XMS_ITS | Encounter Summary ---
:1950 Author Organization [employer] Address [address] [place] [address] Care Team Providers Name Role Phone Pcp, Pt Declines Primary Care Provider Reason for Visit Reason Comments COVID Screening Encounter Details Date Type Department Care Team Description 06/13/2020 Telephone [facility] Sanjay Murrieta MD COVID Screening [address] [facility] [address] [place] [address] [address] [place] [address] [address] [place] [address] [phone] (Wo rk) Social History Tobacco Use Types [...] COVID-19. Patient is a/an Procedures/Surgeries/Inductions/Infusions scheduled at [facility] or [facility] Please call your specialty clinic [...] on filedocumented as of this encounter Results 2019 Novel Coronavirus (COVID-19) (06/14/2020 9:29 AM CDT) [facility] Method Time Signature COVID-19 Not Not 06/14/2020 [facility] Interpretation Detected Detected 4:31 PM [facility]ENTRAL [facility] CDT Specimen Anatomical Collection Method Collection Time Receive d Time (Source) Location / / Volume Laterality Swab (Source Non-blood 06/14/2020 9:29 AM 0 Required) Collection / CDT 11:02 AM CDT Unknown Narrative [facility] - 06/14/2020 4:31 PM CDT Test performed by Photovoltaic Installation Technician Mediated Amplification. TMA has been shown to be equivalent to commercial real-time PCR t ests. This test has been authorized by the FDA under an Emergency Use Authorization (EUA) for use by authorized laboratories. Sanjay Murrieta MD LAB_1 Performing Organization Address City/State/ZIP Code Phon e Number [facility] [address] [address] documented in this encounter Visit Diagnoses Diagnosis Screening examination for infectious dis ease - Primary Screening examination for unspecified in fectious disease documented in this encounter Care Teams Mottler Machine Feeder Relationship Specialty Start Date End Date PcpSkinny MD PCP - General 07/14/18 06/14/20 [place] [address] documented as of this encounter
--- OUTSIDE RECORDS SUMMARY | 2022-06-17 14:42 | XMS_ITS | Encounter Summary ---
:1950 Author Organization [employer] Address [address], [place] [address] Care Team Providers Name Role Phone Pcp, Pt Abraham RINCON Primary Care Provider Reason for Visit Reason Comments Medication Questions xarelto prior to surgery Encounter Details Date Type Department Care Team Description 06/09/2020 Telephone [facility] SteSanjay stoll MD Medication Questions CENTER [address] [place] [address] (xarelto prior to [address] [place], [place] [address] [phone] (Wo rk) Social History Tobacco Use Types [...] PM CDT Pending [facility] w/ [facility]. Wondering about his xarelto dosing prior [...] on filedocumented in this encounter Care Teams Shoes Salesperson Relationship Specialty Start Date End Date Skinny Peralta MD PCP - General 07/14/18 06/14/20 [place] [address] documented as of this encounter
--- OUTSIDE RECORDS SUMMARY | 2022-06-17 14:42 | XMS_ITS | Encounter Summary ---
:1950 Author Organization [facility] Address [address] [place] [address] Care Team Providers Name Role Phone Pcp, Pt Declines Primary Care Provider Reason for Visit Procedure/Equipment (Routine) - Incomplete Specialty Diagnoses / Procedures Referred By Contact Refer red To Contact Diagnoses Chronic pain of both knees Dyllan Teresa MD Procedures XR Knee Rt 3 Views [address] [facility] [place] [address] Referral ID Status Reason Start Date Expiration Date Visits V isits Requested Authorized [id number] Incomplete 12/01/2019 03/01/2021 1 1 Encounter Details Date Type Department Care Team Description 12/01/2019 Ancillary [facility] Dyllan Teresa, Chronic pain of Procedure [address] [facility] [address] [facility] [place] [address] [phone] Social History Tobacco Use Types Packs/Day Years [...] Chronic pain of both Results for this SYSTEM ANALYST 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 XR KNEE LT 3 VIEWS Routine 12/01/2019 3:53 PM Chronic pain of both Results for this SYSTEM ANALYST 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 documented in this encounter Results XR Knee Rt 3 Views (12/01/2019 3:53 PM SYSTEM ANALYST) Anatomical Region Laterality Modality Lower Extremity, Knee [...] Knee Lt 3 Views (12/01/2019 3:53 PM SYSTEM ANALYST) Anatomical Region Laterality Modality Lower Extremity, Knee [...] knees documented in this encounter Care Teams Managed Services Consultant Relationship Specialty Start Date End Date Pcp, Skinny Rosario MD PCP - General 07/14/18 06/14/20 [place], [place] [address] documented as of this encounter
--- OUTSIDE RECORDS SUMMARY | 2022-06-17 14:42 | XMS_ITS | Encounter Summary ---
:1950 Author Organization [facility] Address [address] [place] [address] Care Team Providers Name Role Phone Needs [...] Type Department Care Team Description 06/15/2020 Surgery Scientologist Operating Steubs, Sanjay Hanna MD TOTAL KNEE JOINT Room [address] REPLACEMENT [address] [facility]. [place], [place] [address] [place] [address] [phone] Social History Tobacco Use Types Packs/Day Years [...] Your Medications These medications were sent to [facility] [address] [place] [address] ?? oxyCODONE 5 MG immediate release tablet [...] must be accompanied by a responsible adult local bulk driver at the time you are discharged. [...] spirometer use 3) Practice good oral care. [place] your teeth and use mouthwash twice daily. [...] Comments: Call [facility] Nurse Triage at [phone] Not all post-operative infections can be prevented, but early detection and proper treatment can prevent major catastrophes. Do not start antibiotics for incision infections without contacting the orthopedic surgeon first. IF in doubt, call the orthopedic surgeon. MARÍA ELENA: For non-urgent orthopedic questions please contact your surgeon's nurse triage line Friday - Friday Order Comments: Call [facility] Nurse Triage at [phone] Friday-Friday 8:00 AM to 5:00 PM. No [...] questions regarding your therapy. Danay Fall, Addi., [facility] 11:24 AM 06/17/2020 documented in [...] including possible side effects. Prescriptions filled by [facility] pharmacy. Belongings checklist reviewed with patient [...] history, with cardiology care being received through [facility]. Objective: PHYSICAL EXAM: BP 102/56 Pulse 64 [...] up, chronic medication, already outlined by orthopedics nicejacky Horton MD Internal [employer] Service p: [phone] Erendira Packer OTR/L - 06/17/2020 8:11 AM CDT Occupational [...] ~ 50 feet with FWW Treatment Location: [facility] clinic Frequency: daily General Current living [...] -LE dressing: Re-educated Patient on use of physician specialist for LE dressing and to dress affected leg first.Patient in agreement and stated he has a physician specialist at home and feels he does not [...] ADL/IADLs in 3 days. MET ?? intermediate goal: Patient will maximize independence and safety [...] above. Donovan Sanchez MD Angelica Jesus APRN, CAPITAL PROJECT ENGINEER - 06/16/2020 2:46 PM CDT ORTHO PROGRESS [...] improvement and therapy clearance, likely tomorrow Angelica Jesus, [employer] ADVISOR, CAPITAL PROJECT ENGINEER 2:46 PM 06/16/2020 Patient switched from extended [...] Pearl, PT 9:02 AM 06/16/2020 Erendira Packer OTR/Phoebe - 06/16/2020 7:40 AM CDT Occupational Therapy [...] ~ 5 feet with FWW Treatment Location: [facility] Frequency: daily General Current living situation: Patient [...] with ADL/IADLs in 3 days. MET ?? manager long term care goal: Patient will maximize independence and safety [...] (Patient tolerance due to nausea) Therapist signature: DEBBY Gaston 12:21 PM 06/16/2020 Beatrice Clifford, PT - [...] knee replacement 06/15/[address] Murrieta at [facility]. Order: Eval and Treat: Total [...] no LOB noted during session Standardized test: -[facility] 5 Items (out of 20 points): Raw Score: 15, Standardized Score: 38.88, G Code: CK, 44.61% impaired Suggested AM-[facility] Basic Mobility Stage: 34-51 - LIMITED [...] go to OP PT in [facility] Plan for Next Treatment: ambulation with FWW, measure ROM, TKA exercises, transfers, stairs when appropriate NOTE: The clinician's signature certifies medical necessity for the treatment plan above. Lianna Cano RN - 06/15/2020 3:57 PM CDT POST-OP O: Patient will have a stable post-op period. D: Pt arrived to room 2/672 -, at 14:20. Patient is alert and oriented [...] preventions with ADL/IADLs in 3 days. ?? intermediate goal: Patient will maximize independence and safety [...] 12:00 PM CDT NAME: RAIN PETTY MR#: [id number] CSN: [id number] AUTHENTICATING CLINICIAN: Sanjay Murrieta MD CONFIRM #: [id number] LOC: 1 OPERATIVE REPORT DATE OF OPERATION: 06/15/2020 : 1950 SURGEON: Sanjay Murrieta MD PREOPERATIVE DIAGNOSIS: Advanced degenerative arthrosis, right knee. POSTOPERATIVE DIAGNOSIS: Advanced degenerative arthrosis, right knee. PROCEDURE: Cemented right total knee arthroplasty using [employer]ook Person[employer] components. SUPERVISOR INSPECTING: KRANTHI Cheek HISTORY: The patient is a [...] the arthrotomy incision was closed with interrupted zksymi-qt-[id number] 0 Vicryl sutures. Subcutaneous closure with 0 Vicryl was followed by staple approximation of the skin edges. A sterile bulky dressing was applied. The tourniquet and legholder were removed, and he was transferred to thePAR cart and taken to PAR in satisfactory condition. There were no intraoperative complications noted, and he seemed to be doing well in the PAR. ALF:MEDQ C: CONFIRM #: [id number] documented in this encounter Consult Notes Keri [...] Name Type Priority Associated Diagnoses Order S [facility] Physical Therapy Referral Routine Status post total [...] Results (ABNORMAL) Hemoglobin (06/17/2020 8:07 AM CDT) P athologist Signature Hemoglobin 12.3 (L) 13.5 - 06/17/2020 [facility] 17.5 g/dL 8:16 AM CDT LABORATORY Specimen Anatomical Collection Method / Collection Time Recei salud Time (Source) Location / Volume Laterality Blood Venipuncture / 06/17/2020 8:07 06/17/2020 8:13 Unknown AM CDT AM CDT Donovan Sanchez MD LAB_1 Performing Organization Address [facility] Phon e Number [facility] [address] [place] [address] (ABNORMAL) Hemoglobin (06/16/2020 3:47 PM CDT) P athologist Signature Hemoglobin 12.1 (L) 13.5 - 06/16/2020 [facility] 17.5 g/dL 3:54 PM CDT LABORATORY Specimen Anatomical Collection Method / Collection Time Recei salud Time (Source) Location / Volume Laterality Blood Venipuncture / 06/16/2020 3:47 06/16/2020 3:51 Unknown PM CDT PM CDT Donovan Sanchez MD LAB_1 Performing Organization Address City/[facility] Phon e Number [facility] [address] [place] [address] (ABNORMAL) Hemoglobin in AM POD #1 (06/16/2020 7:56 AM CDT) athologist Signature Hemoglobin 12.5 (L) 13.5 - 06/16/2020 [facility] 17.5 g/dL 8:06 AM CDT LABORATORY Specimen Anatomical Collection Method / Collection Time Recei salud Time (Source) Location / Volume Laterality Blood Venipuncture 06/16/2020 7:56 06/16/2020 8 :02 Butterfly / Unknown AM CDT AM CDT Sanjay Murrieta MD LAB_1 Performing Organization Address City/[facility] Phon e Number [facility] [address] [place] [address] Creatinine / GFR (06/15/2020 3:07 PM CDT) athologist Signature Creatinine 0.76 0.73 - 06/15/2020 [facility] 1.18 mg/dL 4:32 PM CDT LABORATORY GFR, Estimated >60 >60 06/15/2020 [facility] mL/min/1.7 4:32 PM CDT LABORATORY 3m2 Specimen Anatomical Collection Method / Collection Time Recei salud Time (Source) Location / Volume Laterality Blood Venipuncture 06/15/2020 3:07 06/15/2020 3 :13 [place]fly / Unknown PM CDT PM CDT Sanjay Murrieta MD LAB_1 Performing Organization Address [facility] Phon e Number [facility] [address] [place] [address] AST (06/15/2020 3:07 PM CDT) athologist Signature AST (SGOT) 18 10 - 40 U/L 06/15/2020 [facility] 4:32 PM CDT LABORATORY Specimen Anatomical Collection Method / Collection Time Recei salud Time (Source) Location / Volume Laterality Blood Venipuncture 06/15/2020 3:07 06/15/2020 3 :13 Butterfly / Unknown PM CDT PM CDT Sanjay Murrieta MD LAB_1 Performing Organization Address City/[facility] Phon e Number [facility] [address] [place] [address] (ABNORMAL) Albumin (06/15/2020 3:07 PM CDT) athologist Signature Albumin 3.4 (L) 3.5 - 5.0 06/15/2020 [facility] g/dL 4:32 PM CDT LABORATORY Specimen Anatomical Collection Method / Collection Time Recei salud Time (Source) Location / Volume Laterality Blood Venipuncture 06/15/2020 3:07 06/15/2020 3 :13 Butterfly / Unknown PM CDT PM CDT Sanjay Murrieta MD LAB_1 Performing Organization Address [facility] Phon e Number [facility] [address] [place] [address] INR/Protime (06/15/2020 3:07 PM CDT) athologist Signature Protime 13.3 11.8 - 14.6 06/15/2020 [facility] Seconds 3:29 PM CDT LABORATORY INR 1.0 0.9 - 1.1 06/15/2020 [facility] 3:29 PM CDT LABORATORY Specimen Anatomical Collection Method / Collection Time Recei salud Time (Source) Location / Volume Laterality Blood Venipuncture 06/15/2020 3:07 06/15/2020 3 :13 Butterfly / Unknown PM CDT PM CDT Narrative [facility] - 06/15/2020 3:29 P M CDT Therapeutic range determined by protocol established by anticoagulation provider. Sanjay Murrieta MD LAB_1 Performing Organization Address [facility] e Number [facility] [address] [place] [address] XR Knee Rt 2 Views (06/15/2020 3:06 [...] Glucose, Whole 99 70 - 180 06/15/2020 [facility] Blood mg/dL 9:20 AM CDT LABORATORY Specimen Anatomical Collection Method Collection Time Receive d Time (Source) Location / / Volume Laterality Blood 06/15/2020 8:51 AM 0 9:20 CDT AM CDT Sanjay Murrieta MD LAB_1 Performing Organization Address City/State/ZIP Code Phon e Number [facility] [address] [place] [address] documented in this encounter Visit Diagnoses Diagnosis [...] Given 06/16/2020 7:41 PM CDT 650 mg ybpwqxeorog-pzzkbbvqygo-lhyohcfbo Given 06/15/2020 11:13 100 mL Right Knee 0.25%-1:032675-15pq 40 mL in 0.9% sodium AM CDT [...] time as ORAL opioids. HOLD if on YOUTH OFFICER., Post-op levothyroxine (SYNTHROID) tablet 200 mcg Given [...] after IV opioid administration. HOLD if on YOUTH OFFICER. Use of ORAL opioids is encouraged as [...] 1 mg, Oral, HS, First dose on Fyae 06/15/20 at 2200, Until Discontinued Given 06/15/2020 [...] Knee 0.9 % ONCE PRN, Starting on Faye 06/15/20 at 1112, Intra-op sotalol (BETAPACE) tablet 120 [...] 0.9% sodium chloride bolus 500 mL (COMPLETED) 111 (Started - Provider: David Alvarez RN)1212 (Infused - Provider: David Alvarez RN) 500 mL, Intravenous, Administer over 1 H ours, ONCE, Fri06/16/20 at 1115, For 1 dose acetaminophen (TYLENOL) tablet 1,000 mg (COMPLETED) 06 01 (Given - Provider: Lisa Chavez, KELSEA) 1,000 mg, Oral, ONCE, Fri06/15/20 at 0830, For 1 dose, Give in P reop., Pre-op acetaminophen (TYLENOL) tablet 650 mg 1500 (Given - Pr ovider: Lianna Cano, KELSEA)2027 (Given - Provider: Anca Chung, KELSEA) 0732 (Given - Provider: David Alvarez, KELSEA)1111 (Given - Provider: David Alvarez, KELSEA)1552 (Given - Provider: David Alvarez RN)1941 (Given - Provider: Jono Frye, KELSEA) 0752 (Given - Provider: David marie RN)1139 (Given - Provider: David Alvarez, KELSEA) 650 mg, Oral, QID, First dose on [...] 1050 (Started - Provider: Levi Renee APRN, BAND TIER) 3 g, Intravenous, Administer over 30 Min [...] Chung, KELSEA) 0417 (Given - Provider: Anca Chung RN)0944 (Given - Provider: David Alvarez RN)1552 (Given - Provider: David Alvarez RN)2130 (Given - Provider: Jono Frye, KELSEA) 0330 (Given - Provider: Jono Frye, KELSEA)1016 (Given - Provider: David Alvarez RN) 15 mg, Intravenous, Q6H (NON-STND), Firs t dose on Fri06/15/20 at 1530, For 48 hours, Do not give if CrCl <60 or history of GI bleed. Start at least 6 hours after celecoxib (CELEBREX) if given., Post-op levothyroxine (SYNTHROID) tablet 200 mcg 732 (Given - Provider: David Alvarez, KELSEA) 075 (Given - Provider: David marie, RN) 200 mcg, Oral, DAILY, First dose (after last modification) on Fri06/16/20 at 0800 lidocaine PF (XYLOCAINE) 1 % injection 0.1-0.3 mL (COM PLETED) 829 (Given - Provider: Lisa Chavez, KELSEA) 0.1-0.3 mL, Subcutaneous, ONCE, 06/15 at 0830, For 1 dose, Lidocaine to be used for IV starts unless patient refuses., Pre-op magnesium hydroxide (MILK OF MAGNESIA) suspension 30 mL 732 (Given - Provider: David Alvarez RN) 075 (Given - Provider: David marie, RN) 30 mL, Oral, DAILY, First dose on [...] 2027 (Given - Provider: Anca Chung RN) 0733 (Given - Provider: David marie RN)1999 (Not [...] David marie, KELSEA)1946 (Given - Provider: Jono Frye, KELSEA) 075 [...] mg 2027 (Given - Provider: Benji Chung, RN) 0737 (Given - Provider: David Alvarez, KELSEA)194 (Given - Provider: Jono Frye RN) 0754 (Given - Provider: David marie RN) [...] mg/minute. To be given in OR by BAND TIER prior to incision. Re-dose 1000 mg IV [...] Anca Chung, KELSEA)1534 (Stopped - Provider: David Alvarez RN) Intravenous, at 75 mL/hr, CONTINUOUS, St arting Faye 06/15/20 at 1430, Start after completion of bag currently infusing, Post-op PRN Medication Order 06/15/2020 06/16/2020 06/17/2020 bisacodyl (DULCOLAX) rectal suppository 10 mg 10 mg, Rectal, DAILY PRN, Other, Moderat e Constipation, Starting Faye 06/15/20 at 1407, Post-op tumfopbaiui-hbpdvcvczmw-ymnavhpss 0.25%- 1:985466-59zv 40 mL in 0.9% sodium chloride 60 [...] time as ORAL opioids. HOLD if on YOUTH OFFICER., Post-op lidocaine (UROJET) 2 % prefilled syringe [...] needed for Anxiety. melatonin tablet 3 mg 001 (Give n - Provider: Jono Frye, KELSEA) 3 mg, Oral, HS PRN, Sedation, sleep, [...] Cano RN)1745 (Given - Provider: Flori Pang RN)2028 (Given - Provider: Anca Chung RN) 0527 (Given - Provider: Anca Chung , KELSEA)0734 (Given - Provider: David Alvarez RN - Comment: Anticipatory pain with therapy) 001 (Given - Provider: Jono Frye RN)0523 (Given - Provider: Jono M Frye, RN)0753 (Given - Provider: David Alvarez, RN)1025 (Given - Provider: David Alvarez, RN) 5-10 mg, Oral, Q2H PRN, Other, Moderate Pain (pain score 5-7), Severe Pain (pain score 8-10), Starting Faye 06/15/20 at 1407, Do NOT administer at the same time as IV opioids. May administer 1 hour after IV opioid administration. HOLD if on YOUTH OFFICER . Use of ORAL opioids is encouraged [...]
Post-op documented in this encounter Care Teams Director Of Coding Relationship Specialty Start Date End Date Needs Pcp, Assignment PCP - General 06/15/20 06/22/20 [place] [address] documented as of this encounter
--- OUTSIDE RECORDS SUMMARY | 2022-06-17 14:42 | XMS_ITS | Encounter Summary ---
:1950 Author Organization [facility] Address [address] [place] [address] Care Team Providers Name Role Phone Pcp, Pt Declines Primary Care Provider Reason for Visit Reason Comments Orders Needed Encounter Details Date Type Department Care Team Description 12/08/2019 Telephone [facility] TER Kathi Fry, ROSY Orders Needed [address] [facility] [address] [facility] [place], [place] [address] [place] [address] [phone] (Wo rk) Social History Tobacco Use Types [...] like to get the injections here at [facility]. Advised that he should get a call [...] let me know as they live in [facility]. documented in this encounter Plan of Treatment Not on filedocumented as of this encounter Visit Diagnoses Not on filedocumented in this encounter Care Teams Loader Helper Sorting Yard Relationship Specialty Start Date End Date PcpSkinny MD PCP - General 07/14/18 06/14/20 [place] [address] documented as of this encounter
--- OUTSIDE RECORDS SUMMARY | 2022-06-17 14:42 | XMS_ITS | Encounter Summary ---
:1950 Author Organization [facility] Address [address] [place] [address] Care Team Providers Name Role Phone Skinny Peralta MD Primary Care Provider Encounter Details Date Type Department Care Team Description 06/01/2020 Notes/Orders [facility] Sanjay Jenkins MD Pre-meal blood CENTER [address] [facility] glucose between 8.0 8100 [place], [place] and 11.9 mmol/l [place], [place] [phone] (Primary Dx) [phone] (Wo rk) Social History Tobacco Use Types [...] Primary documented in this encounter Care Teams Medicare Specialist Relationship Specialty Start Date End Date Pcp Skinny Rosario MD PCP - General 07/14/18 06/14/20 [place], [place] [id number] documented as of this encounter
--- OUTSIDE RECORDS SUMMARY | 2022-06-17 14:42 | XMS_ITS | Encounter Summary ---
:1950 Author Organization [facility] Address [address] [place] [address] Care Team Providers Name Role Phone Pcp, Pt Abraham RINCON Primary Care Provider Reason for Visit Reason Comments Knee Problem right Encounter Details Date Type Department Care Team Description 05/15/2020 Office Visit [facility] Sanjay Murrieta MD Primary osteoarthritis CENTER [address] [place] [address] of both knees (Primary [address] [place] [address] Dx) [place] [address] [phone] Social History Tobacco Use Types Packs/Day Years [...] - 05/15/2020 1:40 PM CDT Merrick Petty [id number] 1950 [facility] Consultation 05/15/2020 Chief Complaint: Right Knee Pain [...] to be scheduled for that procedure at [facility]. The patient would like to undergo surgery as soon as possible, which would be the third week of May secondary to a recent corticosteroid injection. We will get him set up for that. He will need anappropriate pre-operative medical evaluation. Scribe Disclosure: Scribed for Sanjay Murrieta MD by Vianey Vega nuclear medical tech. I, Sanjay Murrieta MD, have personally reviewed and agree with the information entered by the scribe. Sanjay Murrieta MD documented in this encounter Plan of Treatment Not on filedocumented as of this encounter Visit Diagnoses Diagnosis Primary osteoarthritis of both knees - P rimary Primary localized osteoarthrosis, lower leg documented in this encounter Care Teams Circulation Clerk Relationship Specialty Start Date End Date Pcp, Skinny Rosario MD PCP - General 07/14/18 06/14/20 [place] [address] documented as of this encounter
--- OUTSIDE RECORDS SUMMARY | 2022-06-17 14:42 | XMS_ITS | Encounter Summary ---
:1950 Author Organization [facility] Address [address], [place] [address] Care Team Providers Name Role Phone Pcp, Pt Declines Primary Care Provider Reason for Visit Reason Comments Foot Pain right foot Encounter Details Date Type Department Care Team Description 06/12/2020 Office Visit Riley Lee, Right foot pain (Primary Dx); CENTER Left foot pain [address] [facility] [address] [facility] [address] [place] [address] [place], [place] [phone] (Wo rk) Social History Tobacco Use Types [...] Wilkes MD Orthopaedic Surgeon/Foot & Ankle Specialist [facility], [facility] Medication Requests: Prescriptions are not filled on weekends or on weekdays after 3:00 PM documented in this encounter Progress Notes Riley Wilkes MD - 06/12/2020 12:00 PM CDT NAME: RAIN CENTENO MR#: [id number] CSN: [id number] AUTHENTICATING CLINICIAN: Riley Wilkes MD CONFIRM #: [id number] LOC: 711 CLINIC PROGRESS NOTE DATE OF [...] CT: 10 minutes. FAP:MEDQ C: R:06/12/20 12:12 CONFIRM#:[id number] documented in this encounter Plan of Treatment Not on filedocumented as of this encounter Visit Diagnoses Diagnosis Right foot pain - Primary Pain in limb Left foot pain Pain in limb documented in this encounter Care Teams Emergency Room Orderly Relationship Specialty Start Date End Date Pcp, Skinny Rosario MD PCP - General 07/14/18 06/14/20 [place] [address] documented as of this encounter
--- OUTSIDE RECORDS SUMMARY | 2022-06-17 14:42 | XMS_ITS | Encounter Summary ---
:1950 Author Organization [facility] Address [address], [place] [address] Care Team Providers Name Role Phone Pcp, Pt Declines MD Primary Care Provider Reason for Referral (Routine) - Closed Specialty Diagnoses / Procedures Referred By Contact Refer red To Contact Diagnoses Pain in both knees, unspecified chronicity Dyllan Teresa MD Procedures Triamcinolone Acet Inj Nos: (per 10 mg) [address] [place] [address] Referral ID Status Reason Start Date Expiration Date Visits Requ ested Visits Authorized [id number] Closed 12/25/2018 03/25/2020 1 1 Reason for Visit Reason Comments Knee Pain or Injury bilateral Encounter Details Date Type Department Care Team Description 12/24/2018 Procedure Visit [facility] Dyllan Teresa, Knee Pain or Injury CENTER (bilateral) [address] [place] [facility] [place] [place] [address] [phone] Social History Tobacco Use Types Packs/Day Years [...] CDT Dr. Dyllan Teresa MD Orthopaedic Surgeon International Relations Teacher: Monique Candelaria Please contact Monique for all administrative questions at [phone] Nurse: Magaly Connolly Please contact Magaly for any medical questions at [phone] Medication Requests: Prescriptions are not filled on Weekends or on Weekdays after 3:00PM For all medication refills: Request a refill using [employer] or contact your Pharmacy The bilateral knee was injected with Kenalog-40 and lidocaine. Avoid Strenuous Activity for the remainder of the day and avoid activities that cause pain for one to two weeks following the injection. Signs and Symptoms to watch for: If you have any redness, warmth or increasing pain at the site of the injection or develop a fever, please call [phone] Follow up as needed documented in this encounter Progress Notes Dyllan Teresa MD - 12/24/2018 12:00 PM CDT NAME: RAIN CENTENO MR#: [id number] CSN: [id number] AUTHENTICATING CLINICIAN: Dyllan Teresa MD CONFIRM #: [...] well. We will proceed as noted above. AWM:MEDQ C: R:12/24/18 13:19 CONFIRM#:[id number] documented in this encounter Plan of Treatment Not on filedocumented as of this encounter Visit Diagnoses Diagnosis Pain in both knees, unspecified chronici ty - Primary documented in this encounter Care Teams Box Finisher Relationship Specialty Start Date End Date Pcp, Skinny Rosario MD PCP - General 07/14/18 06/14/20 [place] [address] documented as of this encounter
--- OUTSIDE RECORDS SUMMARY | 2022-06-17 14:42 | XMS_ITS | Encounter Summary ---
:1950 Author Organization [facility] Address [address] [place] [address] Care Team Providers Name Role Phone Pcp, Pt Declines Primary Care Provider Reason for Visit Reason Comments ORTHOTICS Encounter Details Date Type Department Care Team Description 03/20/2020 Telephone [facility] Aba Lemus APRN, GARAGE WORKER ORTHOTICS [address] [facility] [address] [place] [address] [address] [place] [address] [place] [address] [phone] (Wo rk) Social History Tobacco Use Types [...] for convenience he plans to go to [facility] for new orthotics for diagnosis of pes planus bilateral. documented in this encounter Plan of Treatment Not on filedocumented as of this encounter Visit Diagnoses Not on filedocumented in this encounter Care Teams Mud Cleaner Operator Relationship Specialty Start Date End Date Pcp, Skinny Rosario MD PCP - General 07/14/18 06/14/20 [place] [address] documented as of this encounter
--- OUTSIDE RECORDS SUMMARY | 2022-06-17 14:42 | XMS_ITS | Encounter Summary ---
:1950 Author Organization [employer] Address [address] [place] [address] Care Team Providers Name Role Phone Pcp, Pt Declines Primary Care Provider Reason for Referral (Routine) - Closed Specialty Diagnoses / Procedures Referred By Contact Refer red To Contact Diagnoses Osteoarthritis of both knees, unspecified osteoarthritis type Dyllan Teresa MD Procedures Triamcinolone Acet Inj Nos: (per 10 mg) [address] [facility] [place], [place] [address] Referral ID Status Reason Start Date Expiration Date Visits Requ ested Visits Authorized [id number] Closed 09/01/2019 11/30/2020 1 1 SERVICE ATTENDANT Reason for Visit Reason Comments KNEE PAIN Bilateral Knee Encounter Details Date Type Department Care Team Description 08/31/2019 Office Visit [facility] Dyllan Teresa, Osteoar thritis of both CENTER knees, unspecified [address] [facility] [address] [facility] osteoarthritis type [place], [place] (Primary Dx) [phone] Social History Tobacco Use Types Packs/Day Years [...] as of this encounter Patient Instructions Patient InstructionsGabrielleEstrella ogHEATHER - 08/31/2019 3:[address] [...] injection or develop a fever, please call [phone] You've just had a steroid (cortisone) injection: [...] limit the number of steroid injections administered. SERVICE ATTENDANT documented in this encounter Progress Notes Dyllan Teresa MD - 08/31/2019 12:00 PM CST NAME: RAIN CENTENO MR#: [id number] CSN: [id number] AUTHENTICATING CLINICIAN: Dyllan Teresa MD CONFIRM #: [...] he does with this clinically. AWM:MEDQ C: R:08/31/19 17:00 CONFIRM#:[id number] SERVICE ATTENDANT documented in this encounter Plan of Treatment Not on filedocumented as of this encounter Visit Diagnoses Diagnosis Osteoarthritis of both knees, unspecifie d osteoarthritis type - Primary documented in this encounter Care Teams Tank Truck Engine Mechanic Relationship Specialty Start Date End Date Pcp, Skinny Rosario MD PCP - General 07/14/18 06/14/20 [place] [address] documented as of this encounter
--- OUTSIDE RECORDS SUMMARY | 2022-06-17 14:42 | XMS_ITS | Encounter Summary ---
:1950 Author Organization [facility] Address [address] [address] Care Team Providers Name Role Phone Pcp, Pt Declines MD Primary Care Provider Reason for Referral (Routine) - Closed Specialty Diagnoses / Procedures Referred By Contact Refer red To Contact Diagnoses Chronic pain of both knees Dyllan Teresa MD Procedures Triamcinolone Acet Inj Nos: (per 10 mg) [address] [facility] [address] [place] [address] Referral ID Status Reason Start Date Expiration Date Visits Requ ested Visits Authorized [id number] Closed 12/06/2019 03/06/2021 1 1 Procedure/Equipment (Routine) - Incomplete Specialty Diagnoses / Procedures Referred By Contact Refer red To Contact Diagnoses Chronic pain of both knees Dyllan Teresa MD Procedures XR Knee Rt 3 Views [address] [place] [address] Referral ID Status Reason Start Date Expiration Date Visits V isits Requested Authorized [id number] Incomplete 12/01/2019 03/01/2021 1 1 IDE BARREL LATHE OPERATOR Procedure/Equipment (Routine) - Incomplete Specialty Diagnoses / Procedures Referred By Contact Refer red To Contact Diagnoses Chronic pain of both knees Dyllan Teresa MD Procedures XR Knee Lt 3 Views [address] [address] Referral ID Status Reason Start Date Expiration Date Visits V isits Requested Authorized [id number] Incomplete 12/01/2019 03/01/2021 1 1 IDE BARREL LATHE OPERATOR Reason for Visit Reason Comments Knee Pain or Injury Encounter Details Date Type Department Care Team Description 12/01/2019 Office Visit [facility] Dyllan Teresa MD Chronic pain of both CENTER [address] [place] [address] Dr knees (Primary Dx) [address] [place], [place] [phone] (Wo rk) Social History Tobacco Use Types [...] as of this encounter Patient Instructions Patient InstructionsBariAdanjesus manuel Rueda - 12/01/2019 3:[address] Dyllan Teresa MD Orthopaedic [...] injection or develop a fever, please call [phone] Thank you for enrolling in [employer]. Please follow the instructions below to securely access your online medical record. [employer] allows you to send messages to your doctor, view your test results, renewyour prescriptions, schedule appointments, and more. How Do I Sign Up? 1. In your Internet browser, go to [email or web address] 2. Click on the Enter activation code link under the New User? section. You will see the Activate your account! page. 3. Enter your activation code exactly as it appears below. You will not need to use this code after you???ve completed the sign-up process. If you do not sign up before the expiration date, you must request a new code. Activation Code: [email or web address] Expires: 12/31/2019 3:40 PM 4. Enter your last name and date of (mm/dd/yyyy) as indicated, then click Continue. You will be taken to the Let's set up your account page. 5. Create a username. This will be your [employer] login ID and cannot be changed, so think of one thatis secure and easy to remember. 6. Create a password. You can change your password at any time. 7. Enter your e-mail address. You will receive e-mail notification when new information is availablein [employer]. 8. Select your Security Questions and enter your answers. These can be used at a later time if you forget your password. 9. Check the box to accept the terms and conditions. Click Create your account. You can now view your medical record. Additional Information If you have questions, you can call [phone] to talk to our [employer] staff. Remember, [employer] is NOT to be used for urgent needs. For medical emergencies, dial 911. IDE BARREL LATHE OPERATOR documented in this encounter Progress Notes Dyllan Teresa MD - 12/01/2019 12:00 PM CST NAME: RAIN CENTENO MR#: [id number] CSN: [id number] AUTHENTICATING CLINICIAN: Dyllan Teresa MD CONFIRM #: [id number] LOC: 711 CLINIC PROGRESS NOTE DATE OF VISIT: 12/01/2019 : 1950 HISTORY OF PRESENT ILLNESS: Rain is seen in followup for both of his knees. He was last seen 08/31/2019. He had some intra-articular steroid at that point. He states he had excellent relief for the better part of 2-1/2 to 3 months. Now started to wear off a bit. He has his trip to [place] coming up. He is requesting repeating his intra- articular steroid to decrease his pain and increase his functional status. He has not had any new injury. PHYSICAL EXAMINATION: On examination of both of his knees, he has very mild flexion contracture. He flexes to nearly 120 degrees bilaterally. He has some mild pain to palpation lateral joint line bilaterally. He has no significant effusion in either knee today. Distal sensory and motor function are intact. IMAGING STUDIES: X-rays: A bilateral knee series shows narrowing of the lateral compartment of the right knee greaterthan the left. There has been interim change of decreasing joint space since his last set of pictures from May of 2018. There is no evidence for acute change or significant calcific changes in the soft tissue. The lateral view of the left knee shows a narrowness in the femoral tibial articulation with a small superior and inferior pole osteophyte of the patella. His right knee shows what might be a slight decrease in the retropatellar position along with mild inferior and superior pole osteophytes. His bilateral patellofemoral view shows narrowing of the lateral half of the patellofemoral joint, greater on the left side than the right. He has some peripheral osteophytes, largest at the lateral side of the trochlea bilaterally. ASSESSMENT: Overall, Rain has some slowly increasing osteoarthritic changes in the lateral joint space primarily followed by patellofemoral changes bilaterally. I think that he does better if he stays with his good exercise program. I think that repeating his steroid at this point will be helpful. There may needto be some further thoughts of intervention in the future depending upon how he does. He understandsthat. The patient would like to proceed with injection. PLAN: The patient is sterilely prepped and has 1% plain Xylocaine placed at the superolateral portal of each of his 2 knees. He then has 40 mg of Kenalog, along with 6 mL of 1% plain Xylocaine injected into each of his 2 knees through the superolateral portal. He tolerates it well. We will see how he does clinically. PERRI:LYNNE C: R:12/02/19 15:44 CONFIRM#:[id number] documented in this encounter Plan of Treatment Not on filedocumented as of this encounter Results XR Knee Rt 3 Views (12/01/2019 3:53 PM OUTSIDE BARREL LATHE OPERATOR) Anatomical Region Laterality Modality Lower Extremity, Knee [...] Knee Lt 3 Views (12/01/2019 3:53 PM OUTSIDE BARREL LATHE OPERATOR) Anatomical Region Laterality Modality Lower Extremity, Knee [...] Diagnoses Diagnosis Chronic pain of both knees - Primary Chronic pain of both knees documented in this encounter Care Teams Phlebotomy Tech Relationship Specialty Start Date End Date Pcp, Skinny Rosario MD PCP - General 07/14/18 06/14/20 [place] [address] documented as of this encounter
--- OUTSIDE RECORDS SUMMARY | 2022-06-17 14:42 | XMS_ITS | Encounter Summary ---
:1950 Author Organization [facility] Address [address], [place] [address] Care Team Providers Name Role Phone Pcp, [...] Department Care Team Description 06/14/[address], Drive-Up Screening examination [address] [facility] for infectious [facility] [place], [place] [id number] Social History Tobacco Use Types Packs/Day Years [...] Novel Coronavirus (COVID-19) (06/14/2020 9:29 AM CDT) [facility] Method Time Signature COVID-19 Not Not 06/14/2020 [facility] Interpretation Detected Detected 4:31 PM CENTRAL LAB CDT Specimen Anatomical Collection Method Collection Time Receive d Time (Source) Location / / Volume Laterality Swab (Source Non-blood 06/14/2020 9:29 AM 0 Required) Collection / CDT 11:02 AM CDT Unknown Narrative [facility] - 06/14/2020 4:31 PM CDT Test performed by Planning Assistant Mediated Amplification. TMA has been shown to be equivalent to commercial real-time PCR t ests. This test has been authorized by the FDA under an Emergency Use Authorization (EUA) for use by authorized laboratories. Sanjay Murrieta MD LAB_1 Performing Organization Address City/State/ZIP Code Phon e Number [facility] [address] [phone] documented in this encounter Visit Diagnoses Diagnosis Screening examination for infectious dis ease Screening examination for unspecified in fectious disease documented in this encounter Care Teams Game Programmer Relationship Specialty Start Date End Date Pcp, Skinny Rosario MD PCP - General 07/14/18 06/14/20 [place] [address] documented as of this encounter
--- OUTSIDE RECORDS SUMMARY | 2022-06-17 14:42 | XMS_ITS | Encounter Summary ---
:1950 Author Organization [facility] Address [address] [place] [address] Care Team Providers Name Role Phone Pcp, Pt Declines MD Primary Care Provider Reason for Referral Procedure/Equipment (Routine) - Incomplete Specialty Diagnoses / Procedures Referred By Contact Refer red To Contact Diagnoses Pain, joint, ankle and foot, right Riley Wilkes MD Procedures CT Ankle Rt WO IV Cont [address] [facility] [address] [place], [place] [address] Referral ID Status Reason Start Date Expiration Date Visits V isits Requested Authorized [id number] Incomplete 05/15/2020 08/14/2021 1 1 Procedure/Equipment (Routine) - Incomplete Specialty Diagnoses / Procedures Referred By Contact Refer red To Contact Diagnoses Pain, joint, ankle and foot, right Riley Wilkes MD Procedures XR Foot Rt 3+ Views [address] [facility] [address] [place], [place] [address] Referral ID Status Reason Start Date Expiration Date Visits V isits Requested Authorized [id number] Incomplete 05/15/2020 08/14/2021 1 1 Procedure/Equipment (Routine) - Incomplete Specialty Diagnoses / Procedures Referred By Contact Refer red To Contact Diagnoses Pain, joint, ankle and foot, left Riley Wilkes MD Procedures XR Foot Lt 3+ Views [address] [place], [place] [address] Referral ID Status Reason Start Date Expiration Date Visits V isits Requested Authorized [id number] Incomplete 05/15/2020 08/14/2021 1 1 Reason for Visit Reason Comments Foot Pain bilateral foot Encounter Details Date Type Department Care Team Description 05/15/2020 Office Visit [facility] Riley Wilkes, Pain, joint, ankle and foot, right (Primary Dx); CENTER Pain, joint, ankle and foot, left [address] [facility] [address] [facility] [address] [place] [address] [address] [place] [phone] (Wo rk) Social History Tobacco Use Types [...] Wilkes MD Orthopaedic Surgeon/Foot & Ankle Specialist Medicaid Nurse, [facility] Medication Requests: Prescriptions are not filled on weekends or on weekdays after 3:00 PM documented in this encounter Progress Notes Riley Wilkes MD - 05/15/2020 12:00 PM CDT NAME: MERRICK CENTENO MR#: [id number] CSN: [id number] AUTHENTICATING CLINICIAN: Riley Wilkes MD CONFIRM #: [id number] LOC: 711 CLINIC PROGRESS NOTE DATE OF [...] right foot obtained in clinic with accession #[id number], were independently reviewed in the office and [...] foot obtained today in clinic with accession #[id number], were independentlyreviewed in the office and with [...] PA-C, am serving as a scribe on [employer] to personally document services performed and statements dictated by Dr. Riley Wilkes. I, Dr. Riley Wilkes, was present during the services described in this documentation. I have reviewed the document for accuracy. TT: [address]: 20 minutes. Dictated by: Nichole Villeda PA-C FAP:MEDQ C: R:05/15/20 13:59 CONFIRM#:[id number] documented in this encounter Plan of Treatment Not on filedocumented as of this encounter Results CT Ankle [...] There is fracturing of 2 of the aiv avicular fixation screws. The subtalar fixation screw [...] acute fractures or dislocations noted. ?? Riley ARMSTRONG XR Foot Lt 3+ Views (05/15/2020 1:07 [...] acute fractures or dislocations noted. ?? Riley A Wilkes MD RAD GD documented in this encounter Visit Diagnoses Diagnosis Pain, joint, ankle and foot, right - Minnie celeste Pain, joint, ankle and foot, left Pain, joint, ankle and foot, left Pain, joint, ankle and foot, right Pain, joint, ankle and foot, right documented in this encounter Care Teams Adjunct Sociology Professor Relationship Specialty Start Date End Date Pcp, Pt MD Abraham PCP - General 07/14/18 06/14/20 [place] [address] documented as of this encounter
--- OUTSIDE RECORDS SUMMARY | 2022-06-17 14:42 | XMS_ITS | Encounter Summary ---
:1950 Author Organization [employer] Address [address] [address] Care Team Providers Name Role Phone Skinny Peralta MD Primary Care Provider Reason for Visit Reason Comments Pre-procedure Call Encounter Details Date Type Department Care Team Description 02/02/2020 Telephone [facility] Mary Nickerson, Pre-procedure Call [address] [place], [place] [address] Social History Tobacco Use Types [...] on filedocumented in this encounter Care Teams Garment Finisher Relationship Specialty Start Date End Date Skinny Peralta MD PCP - General 07/14/18 06/14/20 [place] [address] documented as of this encounter
--- OUTSIDE RECORDS SUMMARY | 2022-06-17 14:42 | XMS_ITS | Encounter Summary ---
:1950 Author Organization [employer] Address [address], [place] [address] Care Team Providers Name Role Phone Pcp, Pt Abraham RINCON Primary Care Provider Reason for Referral (Routine) - Incomplete Specialty Diagnoses / Procedures Referred By Contact Refer red To Contact Diagnoses Osteoarthritis of right knee, unspecified osteoarthritis type Sanjay Murrieta MD Procedures Case Request OR - Orthopedic Surgery: TOTAL KNEE JOINT REPLACEMENT [address] [facility] [place], [place] [address] Referral ID Status Reason Start Date Expiration Date Visits V isits Requested Authorized [id number] Incomplete 05/17/2020 08/16/2021 1 1 Encounter Details Date Type Department Care Team Description 05/17/2020 Notes/Orders [facility] Sanjay Murrieta MD Osteoarthritis of right CENTER [address] [facility] knee, unspecified [address] [place], [place] [address] (Primary Dx) [address] [phone] Social History Tobacco Use Types Packs/Day Years [...] Novel Coronavirus (COVID-19) (06/11/2020 7:49 AM CDT) [facility] Method Time Signature COVID-19 Not Not 06/12/2020 [facility] Interpretation Detected Detected 2:44 AM CENTRAL LAB CDT Specimen Anatomical Collection Method Collection Time Receive d Time (Source) Location / / Volume Laterality Swab (Source Non-blood 06/11/2020 7:49 AM 0 Required) Collection / CDT 10:35 AM CDT Unknown Narrative [facility] - 06/12/2020 2:44 AM CDT Testing has been performed by Photoengraving Printer Mediated Amplification. This test has been authorized by the FDA under an Emergency Use Authorization (EUA) for use by authorized laboratories. Sanjay Murrieta MD LAB_1 Performing Organization Address City/State/ZIP Code Phon e Number [facility] [address] [phone] documented in this encounter Visit Diagnoses Diagnosis Osteoarthritis of right knee, unspecifie d osteoarthritis type - Primary documented in this encounter Care Teams Roll Skinner Relationship Specialty Start Date End Date Pcp, Skinny Rosario MD PCP - General 07/14/18 06/14/20 [place] [address] documented as of this encounter
--- OUTSIDE RECORDS SUMMARY | 2022-06-17 14:42 | XMS_ITS | Encounter Summary ---
:1950 Author Organization [facility] Address [address], [place] [address] Care Team Providers Name Role Phone PcpSkinny MD Primary Care Provider Reason for Visit Reason Comments Post Visit Follow Up Phone Call Encounter Details Date Type Department Care Team Description 02/08/2020 Telephone [facility] Lilia Carrillo, Post Visit Follow Up [address] [facility] RN Phone Call [place], [place] [address] Social History Tobacco Use Types [...] on filedocumented in this encounter Care Teams Oil Lease Operator Relationship Specialty Start Date End Date Skinny Peralta MD PCP - General 07/14/18 06/14/20 [place] [address] documented as of this encounter
--- OUTSIDE RECORDS SUMMARY | 2022-06-17 14:43 | XMS_ITS | Encounter Summary ---
:1950 Author Organization [facility] Address [address] [place] [address] Care Team Providers Name Role Phone Pcp, Pt Declines Primary Care Provider Reason for Referral Procedure/Equipment (Routine) - Incomplete Specialty Diagnoses / Procedures Referred By Contact Refer red To Contact Diagnoses Lumbar spondylosis (HRC) Kathi Fry PA-C Procedures MR Lumbar Spine WO IV Cont [address] [facility] [address] [place] [address] Referral ID Status Reason Start Date Expiration Date Visits V isits Requested Authorized [id number] Incomplete 12/14/2018 03/14/2020 1 1 Procedure/Equipment (Routine) - Incomplete Specialty Diagnoses / Procedures Referred By Contact Refer red To Contact Diagnoses Lumbar spondylosis (HRC) Kathi Fry PA-C Procedures XR Lumbar Spine AP/Lat Views [address] [facility] [address] [place] [address] Referral ID Status Reason Start Date Expiration Date Visits V isits Requested Authorized [id number] Incomplete 12/14/2018 03/14/2020 1 1 Reason for Visit Reason Comments PAIN, BACK, LOW Encounter Details Date Type Department Care Team Description 12/14/2018 Office Visit [facility] Kathi Fry Lumba r spondylosis CENTER [place] (Primary Dx) [address] [facility] [address] [facility] [address] [address] [place], [place] [address] [place], [place] [phone] (Wo rk) Social History Tobacco Use Types [...] AM CDT Kathi Fry PA-C Orthopaedic Spine Swager Operator: Maxine Fatima Please contact Bela for all administrative questions at [phone] Please contact the Spine Nurse for all medical related questions at [phone] Office Hours: Friday, Friday, Friday Medication Requests: Prescriptions are not filled on Weekends or on days after 3:00PM For all medication refills: Request a refill using [employer] or contact your Pharmacy Please determine coverage [...] - 12/14/2018 10:00 AM CDT Merrick Petty [id number] 1950 [facility] Orthopaedic [place] Consultation 12/14/2018 Chief Complaint: Bilateral Leg Pain [...] images Current Pain Medications: None. The [place] VACUUM METALIZING SUPERVISOR was not reviewed. Allergies: No known drug [...] with the patient; this is located in [facility] in [place]. Physical Exam: VS: Ht 2.007 m (6' [...] PHQ-2, which has been imaged in to [employer] Scribe Disclosure: I, Fabio Robles, am serving [...] on filedocumented as of this encounter Results MR Lumbar [...] and L5-S1 levels as detailed above. 3. Eaak-by-hrxisfku right neural foramin al stenosis at the [...] and L5-S1 levels as detailed above. 3. Imyz-nv-jwlkovdh right neural foramin al stenosis at the [...] hy documented in this encounter Care Teams Bpm Developer Relationship Specialty Start Date End Date Pcp, Skinny Rosario MD PCP - General 07/14/18 06/14/20 [place] [address] documented as of this encounter
--- OUTSIDE RECORDS SUMMARY | 2022-06-17 14:43 | XMS_ITS | Encounter Summary ---
:1950 Author Organization [facility] Address [address] [address] Care Team Providers Name Role Phone Pcp, Pt Declines Primary Care Provider Reason for Visit Procedure/Equipment (Routine) - Incomplete Specialty Diagnoses / Procedures Referred By Contact Refer red To Contact Diagnoses Lumbar spondylosis (HRC) Kathi Fry PA-C Procedures MR Lumbar Spine WO IV Cont [address] [facility] [place], [place] [address] Referral ID Status Reason Start Date Expiration Date Visits V isits Requested Authorized [id number] Incomplete 12/14/2018 03/14/2020 1 1 Encounter Details Date Type Department Care Team Description 12/16/2018 Ancillary [facility] Kathi Fry, Lumbar spondylosis Procedure [address] [facility] [address] [facility] [place], [place] [address] [phone] Social History Tobacco Use Types Packs/Day Years [...] and L5-S1 levels as detailed above. 3. Ffae-er-llnevhal right neural foramin al stenosis at the [...] and L5-S1 levels as detailed above. 3. Cnrq-yh-anvvneaw right neural foramin al stenosis at the L4-L5 level. 4. Mild narrowing of the proximal L3-L4 and right L5-S1 neural foramen. Kathi Fry PA-C RAD MRI documented in this encounter Visit Diagnoses Diagnosis Lumbar spondylosis (HRC) Lumbosacral spondylosis without myelopat hy documented in this encounter Care Teams Administrative Representative Relationship Specialty Start Date End Date PcpSkinny MD PCP - General 07/14/18 06/14/20 [place] [address] documented as of this encounter
--- OUTSIDE RECORDS SUMMARY | 2022-06-17 14:43 | XMS_ITS | Encounter Summary ---
:1950 Author Organization [employer] Address [address] [address] Care Team Providers Name Role Phone Pcp, Pt Declines Primary Care Provider Reason for Referral (Routine) - Closed Specialty Diagnoses / Procedures Referred By Contact Refer red To Contact Diagnoses Chronic pain of left knee Dyllan Teresa MD Procedures Triamcinolone Acet Inj Nos: (per 10 mg) [address] [facility] [place] [address] Referral ID Status Reason Start Date Expiration Date Visits Requ ested Visits Authorized [id number] Closed 07/16/2018 10/15/2019 1 1 Reason for Visit Reason Comments Knee Pain or Injury B knee MRI results Encounter Details Date Type Department Care Team Description 07/14/2018 Office Visit [facility] Dyllan Teresa MD Chronic pain of left CENTER [address] [facility] knee (Primary Dx) 8100 [place], [place] [address] [phone] (Wo rk) Social History Tobacco Use Types [...] CDT Dr. Dyllan Teresa MD Orthopaedic Surgeon Hackler Doll Wigs: Monique Candelaria Please contact Monique for all administrative questions at [phone] Nurse: Magaly Connolly Please contact Magaly for any medical questions at [phone] Medication Requests: Prescriptions are not filled on Weekends or on Weekdays after 3:00PM For all medication refills: Request a refill using [employer] or contact your Pharmacy The left knee was injected with Kenalog-80 and lidocaine. Avoid Strenuous Activity for the remainder of the day and avoid activities that cause pain for one to two weeks following the injection. Signs and Symptoms to watch for: If you have any redness, warmth or increasing pain at the site of the injection or develop a fever, please call [phone] Follow up as needed documented in this encounter Progress Notes Dyllan Teresa MD - 07/15/2018 9:01 PM CDT NAME: RAIN CENTENO MR#: [id number] CSN: [id number] AUTHENTICATING CLINICIAN: Dyllan Teresa MD CONFIRM #: [...] his knee on topof the more chronic iwslf-bp-[id number] osteoarthrosis. PHYSICAL EXAM: On examination of both [...] leg documented in this encounter Care Teams Manager Trainee Relationship Specialty Start Date End Date Pcp, Skinny Rosario MD PCP - General 07/14/18 06/14/20 [place] [address] documented as of this encounter
--- OUTSIDE RECORDS SUMMARY | 2022-06-17 14:43 | XMS_ITS | Encounter Summary ---
:1950 Author Organization [facility] Address [address] [place] [address] Care Team Providers Name Role Phone Skinny Peralta MD Primary Care Provider Reason for Visit Reason Comments QUESTIONS, GENERAL Encounter Details Date Type Department Care Team Description 06/16/2018 Telephone [facility] Sanjay Barahona, SHANIC QUESTIONS, GENERAL [address] [facility] [address] [facility] [address] [place] [address] [place] [address] [phone] (Wo rk) Social History Tobacco Use Types [...] filedocumented in this encounter Care Teams Accounts Collector Relationship Specialty Start Date End Date PcpSkinny MD PCP - General 07/14/18 06/14/20 [place] [address] documented as of this encounter
--- OUTSIDE RECORDS SUMMARY | 2022-06-17 14:43 | XMS_ITS | Encounter Summary ---
:1950 Author Organization [facility] Address [address], [place] [address] Care Team Providers Name Role Phone Unavailable Primary Care Provider Unavailable Reason for Visit Procedure/Equipment (Routine) - Incomplete Specialty Diagnoses / Procedures Referred By Contact Refer red To Contact Diagnoses Right knee pain, unspecified chronicity Sanjay Barahona PA-C Procedures XR Knee Rt 3 Views [address] [facility] [address] [place] [address] Referral ID Status Reason Start Date Expiration Date Visits V isits Requested Authorized [id number] Incomplete 06/15/2018 09/14/2019 1 1 Encounter Details Date Type Department Care Team Description 06/15/2018 Imaging [facility] Sanjay Barahona PA-C Right knee pain, [address] [facility] [address] [facility] [place] [address] [place] [address] [phone] (Wo rk) Social History Tobacco Use Types [...] identified. No significant right-sided e ffusion. Sanjay ARMSTRONG documented in this encounter Visit Diagnoses Diagnosis Right knee pain, unspecified chronicity documented in this encounter
--- OUTSIDE RECORDS SUMMARY | 2022-06-17 14:43 | XMS_ITS | Encounter Summary ---
:1950 Author Organization [facility] Address [address], [place] [address] Care Team Providers Name Role Phone Unavailable Primary Care Provider Unavailable Reason for Visit Reason Comments CONSULT Encounter Details Date Type Department Care Team Description 12/28/2012 Surgical Consult [facility] Riley Wilkes Pa in in joint, CENTER ankle and foot [address] [facility] [address] [facility] (Primary Dx) [place] [address] [phone] Social History Tobacco Use Types Packs/Day Years [...] Wilkes MD Orthopaedic Surgeon/Foot & Ankle Specialist Appellate Court Clerk, [facility] Cigar Sorter: Sarah Lovett Please contact Sarah for all administrative questions at [phone] Nurses: Linsey Tejada RN and Christina Stanton SHIELD OPERATOR Please contact Ratna for all medical related questions at [phone] Please contact your Pharmacy for all medication refill requests Your Provider would like you to schedule a Follow as needed with Dr. Wilkes Appointment Scheduling: Can be done at the front desk person or by calling our main number [phone] documented in this encounter Progress Notes Daigle MD - 12/28/2012 1:56 PM CDT Progress Notes signed by Riley Wilkes MD at 12/31/12 0709 Also signed by Matt Rousseau MD at 01/12/13 130 Author: Matt Rousseau MD Service: (none) Author Type: Resident Filed: 12/31/12 0709 Note Time: 12/28/12 1356 Status: Signed Stiff Leg Derrick Operator: Riley Wilkes MD (Physician) NAME: RAIN CENTENO VISIT: [id number] DICTATING CLINICIAN: MATT ROUSSEAU MD JOB: [id number] Med JOB: [id number] LOC: 3711 CLINIC PROGRESS NOTE DATE OF [...]
--- OUTSIDE RECORDS SUMMARY | 2022-06-17 14:43 | XMS_ITS | Encounter Summary ---
:1950 Author Organization [facility] [employer] Address [address] [address] Care Team Providers Name Role Phone Pcp, Pt Declines Primary Care Provider Reason for Visit Procedure/Equipment (Routine) - Incomplete Specialty Diagnoses / Procedures Referred By Contact Refer red To Contact Diagnoses Pain in both knees, unspecified chronicity Dyllan Teresa MD Procedures MR Knee Rt WO IV Cont MR Knee Rt W IV Cont [address] [facility] [place] [address] Referral ID Status Reason Start Date Expiration Date Visits V isits Requested Authorized [id number] Incomplete 07/09/2018 10/08/2019 1 1 Encounter Details Date Type Department Care Team Description 07/14/2018 Imaging [facility] MRI Dyllan Teresa MD Pain in both knees, [address] [facility] [address] [facility] unspecified chronicity [place], [place] [address] [place] [address] [phone] (Wo rk) Social History Tobacco Use Types [...] Date/Time Associated Diagnosis Comme nts MR KNEE RT WO IV Routine 07/14/2018 11:14 AM Pain in both knee s, Results for this CONT CDT unspecified procedure are i n chronicity the results section. documented in this encounter Results MR Knee Rt WO IV Cont (07/14/2018 11:14 AM CDT) Anatomical Region Laterality Modality Lower Extremity, Knee, Skeletal, Thigh, Leg Right Magnetic Resonance Specimen (Source) Anatomical Collection Method Collection Time Re ceived Time Location / / Volume Laterality 07/14/2018 11:12 AM CDT Impressions 07/14/2018 11:42 AM CDT IMPRESSION: 1. ??Extensive marrow edema in the later al femoral condyle centered at an area of cortical depression along the posterior lateral weightbearing surface. This is concerning for a subchondral fracture. 2. ??2.6 cm area of full-thickness chond romalacia in the lateral femoral condyle. 3. ??Flap tear in the body and posterior horn of the medial meniscus. 4. ??Extensive complex tear throughout t he lateral meniscus. 5. ??Moderate joint effusion with scatte red debris and/or synovitis. 6. ??Large popliteal cyst with septation s. 7. ??Other findings as above. Narrative 07/14/2018 11:42 AM CDT TECHNIQUE: ??Routine MRI of the right knee was performed without contrast. COMPARISON: ??Radiographs 06/15/2018 FINDINGS: MEDIAL COMPARTMENT: ??There are no focal cartilage defects. There is a flap tear in the body and posterior horn of the medial meniscus extending to the tibial surface. There is a flap of meniscal tissue extruded into the meniscal tibial reces s on series 7 image 24. LATERAL COMPARTMENT: ??There is a full-t hickness cartilage defect along the lateral half of the lateral femoral condyle posterior weightbearing surface measuring 2.6 x 1.9 cm in AP by transverse dimensi on. There is a focal 0.8 cm area where t he cortex appears mildly depressed on series 9 image 25. There is extensive mild marrow edema throughout the posterior lateral aspect of the femoral condyle. Ther e is a complex extensive tear throughout the lateral meniscus with a high-grade radial component posteriorly. PATELLOFEMORAL JOINT: ??Diffuse high-gra de partial-thickness chondromalacia throughout the patellofemoral compartment. No subchondral edema. Moderate joint effusion with scattered debris and/or synovitis. Large popliteal cyst with septations. LIGAMENTS AND TENDONS: ??Mild mucoid deg eneration of the anterior cruciate ligament. Posterior cruciate ligaments, medial collateral ligament, iliotibial band, fibular collateral ligament and biceps fem vero tendons are intact. The popliteus m uscle and tendon are normal. There is no evidence of injury to the posterolateral corner supporting structures. EXTENSOR MECHANISM: The quadriceps and p atellar tendons are normal. The medial retinaculum, medial patellofemoral ligament, and lateral retinaculum are normal. Mild prepatellar soft tissue edema. MARROW AND SOFT TISSUES: ??Extensive mar row edema centered on the area of cortical depression in the posterolateral lateral femoral condyle. Degenerative cystic change and marrow edema at the tibial spi ne centered at the anterior cruciate lig ament attachment. No solid soft tissue mass. Procedure Note Jasper Diggs MD - 07/14/2018Formattin g of this note might be different from the original. TECHNIQUE: Routine MRI of the right knee was performed without contrast. COMPARISON: Radiographs 06/15/2018 FINDINGS: MEDIAL COMPARTMENT: There are no focal c artilage defects. There is a flap tear in the body and posterior horn of the medial meniscus extending to the tibial surface. There is a flap of meniscal tissue extruded into the meniscal tibial recess on series 7 image 24. LATERAL COMPARTMENT: There is a full-thi ckness cartilage defect along the lateral half of the lateral femoral condyle posterior weightbearing surface measuring 2.6 x 1.9 cm in AP by transverse dimension. There is a focal 0.8 cm area where the cortex appea rs mildly depressed on series 9 image 25. There is extensive mild marrow edema throughout the posterior lateral aspect of the femoral condyle. There is a complex extensive tear throughout the lateral meniscus with a h igh-grade radial component posteriorly. PATELLOFEMORAL JOINT: Diffuse high-grade partial-thickness chondromalacia throughout the patellofemoral compartment. No subchondral edema. Moderate joint effusion with scattered debris and/or synovitis. Large popliteal cyst with septations. LIGAMENTS AND TENDONS: Mild mucoid degen eration of the anterior cruciate ligament. Posterior cruciate ligaments, medial collateral ligament, iliotibial band, fibular collateral ligament and biceps femoris tendons are intact. The popliteus muscle and ten don are normal. There is no evidence of injury to the posterolateral corner supporting structures. EXTENSOR MECHANISM: The quadriceps and p atellar tendons are normal. The medial retinaculum, medial patellofemoral ligament, and lateral retinaculum are normal. Mild prepatellar soft tissue edema. MARROW AND SOFT TISSUES: Extensive marro w edema centered on the area of cortical depression in the posterolateral lateral femoral condyle. Degenerative cystic change and marrow edema at the tibial spine centered at the anterior cruciate ligament attach ment. No solid soft tissue mass. IMPRESSION IMPRESSION: 1. Extensive marrow edema in the lateral femoral condyle centered at an area of cortical depression along the posterior lateral weightbearing surface. This is concerning for a subchondral fracture. 2. 2.6 cm area of full-thickness chondro malacia in the lateral femoral condyle. 3. Flap tear in the body and posterior h orn of the medial meniscus. 4. Extensive complex tear throughout the lateral meniscus. 5. Moderate joint effusion with scattere d debris and/or synovitis. 6. Large popliteal cyst with septations. 7. Other findings as above. Dyllan Teresa MD RAD MRI documented in this encounter Visit Diagnoses Diagnosis Pain in both knees, unspecified chronici ty documented in this encounter Care Teams Ticker Wirer Relationship Specialty Start Date End Date Pcp, Skinny Rosario MD PCP - General 07/14/18 06/14/20 [place] [address] documented as of this encounter
--- OUTSIDE RECORDS SUMMARY | 2022-06-17 14:43 | XMS_ITS | Encounter Summary ---
:1950 Author Organization [email or web address] Address [address] [place] [address] Care Team Providers Name Role Phone Pcp, Pt Declines Primary Care Provider Reason for Referral (Routine) - Closed Specialty Diagnoses / Procedures Referred By Contact Refer red To Contact Diagnoses Osteoarthritis of right knee, unspecified osteoarthritis type Dyllan Teresa MD Procedures Triamcinolone Acet Inj Nos: (per 10 mg) [address] [facility] [place], [place] [address] Referral ID Status Reason Start Date Expiration Date Visits Requ ested Visits Authorized [id number] Closed 09/16/2018 12/16/2019 1 1 TING CONTRACTOR Reason for Visit Reason Comments Knee Problem Right knee requesting inject ion Encounter Details Date Type Department Care Team Description 09/11/2018 Office Visit [facility] Dyllan Teresa, Osteoar thritis of right CENTER knee, unspecified [address] [facility] [address] [facility] osteoarthritis type [place] [facility] [place] (Primary Dx) [address] [phone] Social History Tobacco Use Types Packs/Day Years [...] CST Dr. Dyllan Teresa MD Orthopaedic Surgeon Warranty Administrator: Monique Candelaria Please contact Monique for all administrative questions at [phone] Nurse: Magaly Connolly Please contact Magaly for any medical questions at [phone] Medication Requests: Prescriptions are not filled on Weekends or on Weekdays after 3:00PM For all medication refills: Request a refill using [employer] or contact your Pharmacy The RIGHT knee [...] injection or develop a fever, please call [phone] TING CONTRACTOR documented in this encounter Progress Notes Dyllan Teresa MD - 09/11/2018 12:00 PM CST NAME: RAIN CENTENO MR#: [id number] CSN: [id number] AUTHENTICATING CLINICIAN: Dyllan Teresa MD CONFIRM #: [...] of his right knee, he has a [id number] effusion. He lacks just a few degrees [...] this clinically. AWM:MEDQ C: R:09/15/18 16:15 CONFIRM#:[id number] TING CONTRACTOR documented in this encounter Plan of Treatment Not on filedocumented as of this encounter Visit Diagnoses Diagnosis Osteoarthritis of right knee, unspecifie d osteoarthritis type - Primary documented in this encounter Care Teams Pottery Machine Operator Relationship Specialty Start Date End Date Pcp, Skinny Rosario MD PCP - General 07/14/18 06/14/20 [place] [address] documented as of this encounter
--- OUTSIDE RECORDS SUMMARY | 2022-06-17 14:43 | XMS_ITS | Encounter Summary ---
:1950 Author Organization [facility] Address [address] [address] Care Team Providers Name Role Phone Pcp, Pt Declines Primary Care Provider Reason for Visit Procedure/Equipment (Routine) - Incomplete Specialty Diagnoses / Procedures Referred By Contact Refer red To Contact Diagnoses Pain in both knees, unspecified chronicity Dyllan Teresa MD Procedures MR Knee Lt WO IV Cont [address] [facility] [address] [place] [address] Referral ID Status Reason Start Date Expiration Date Visits V isits Requested Authorized [id number] Incomplete 07/09/2018 10/08/2019 1 1 Encounter Details Date Type Department Care Team Description 07/14/2018 Imaging [facility] MRI Dyllan Teresa MD Pain in both knees, [address] [facility] [address] [facility] unspecified chronicity [place] [address] [place] [address] [phone] (Wo rk) Social History Tobacco Use Types [...] ty documented in this encounter Care Teams Technology Trainer Relationship Specialty Start Date End Date Pcp, Skinny Rosario MD PCP - General 07/14/18 06/14/20 [place] [address] documented as of this encounter
--- OUTSIDE RECORDS SUMMARY | 2022-06-17 14:43 | XMS_ITS | Encounter Summary ---
:1950 Author Organization [email or web address] Address [address] [place] [address] Care Team Providers Name Role Phone Pcp, Pt Declines Primary Care Provider Reason for Visit Procedure/Equipment (Routine) - Incomplete Specialty Diagnoses / Procedures Referred By Contact Refer red To Contact Diagnoses Lumbar spondylosis ([facility]C) Kathi Fry PA-C Procedures XR Lumbar Spine AP/Lat Views [address] [facility] [place], [place] [address] Referral ID Status Reason Start Date Expiration Date Visits V isits Requested Authorized [id number] Incomplete 12/14/2018 03/14/2020 1 1 Encounter Details Date Type Department Care Team Description 12/14/2018 Ancillary [facility] Kathi Fry, Low back pain, Procedure [address] [facility] PA-C unspecified back Drive [address] [facility] pain laterality, [place] [address] chronicity, with [phone] sciatica presen ce (Work) unspecified ([facility]) Social History Tobacco Use Types Packs/Day Years [...] rightward curvature of the lumbar spine. Kathi STROUD GD documented in this encounter Visit Diagnoses Diagnosis Low back pain, unspecified back pain lat erality, unspecified chronicity, with sciatica presence unspecified ([facility]C) documented in this encounter Care Teams Head Sawyer Automatic Relationship Specialty Start Date End Date PcpSkinny MD PCP - General 07/14/18 06/14/20 [place] [address] documented as of this encounter
--- OUTSIDE RECORDS SUMMARY | 2022-06-17 14:43 | XMS_ITS | Encounter Summary ---
:1950 Author Organization [facility] Address [address] [place] [address] Care Team Providers Name Role Phone Unavailable Primary Care Provider Unavailable Reason for Referral Procedure/Equipment (Routine) - Incomplete Specialty Diagnoses / Procedures Referred By Contact Refer red To Contact Diagnoses Right knee pain, unspecified chronicity Sanjay Barahona PA-C Procedures XR Knee Lt 1-2 Views Comparison [address] [facility] [address] [place] [address] Referral ID Status Reason Start Date Expiration Date Visits V isits Requested Authorized [id number] Incomplete 06/15/2018 09/14/2019 1 1 Procedure/Equipment (Routine) - Incomplete Specialty Diagnoses / Procedures Referred By Contact Refer red To Contact Diagnoses Right knee pain, unspecified chronicity Sanjay Barahona PA-C Procedures XR Knee Rt 3 Views [address] [facility] [address] [place] [address] Referral ID Status Reason Start Date Expiration Date Visits V isits Requested Authorized [id number] Incomplete 06/15/2018 09/14/2019 1 1 Reason for Visit Reason Comments Knee Pain or Injury R knee pain Encounter Details Date Type Department Care Team Description 06/15/2018 Office Visit [facility] Sanjay Barahona Chondroc alcinosis of right knee (Primary Dx); [facility] Right knee pain, unspecified chronicity [address] [facility] 8[address] [place] [address] [phone] Social History Tobacco Use Types Packs/Day Years [...] Barahona PA-C - 06/15/2018 8:50 AM CDT [facility] Consultation 06/15/2018 Chief Complaint: Right Knee Pain [...] with the patient; this is located in [place] in [facility]. Review of Systems: Positive for high [...]
--- OUTSIDE RECORDS SUMMARY | 2022-06-17 14:43 | XMS_ITS | Encounter Summary ---
:1950 Author Organization [facility] Address [address], [place] [address] Care Team Providers Name Role Phone Pcp, Pt Declines Primary Care Provider Reason for Referral Procedure/Equipment (Routine) - Incomplete Specialty Diagnoses / Procedures Referred By Contact Refer red To Contact Diagnoses Pain in both knees, unspecified chronicity Dyllan Teresa MD Procedures MR Knee Lt WO IV Cont [address] [place] [address] [place], [place] [address] Referral ID Status Reason Start Date Expiration Date Visits V isits Requested Authorized [id number] Incomplete 07/09/2018 10/08/2019 1 1 Encounter Details Date Type Department Care Team Description 07/09/2018 Notes/Orders [facility] Dyllan Teresa MD Pain in both knees, CENTER [address] [place] [address] unspecified [address] [place], [place] chronicity (Primary [place], [place] [address] Dx) [phone] (Wo rk) Social History Tobacco Use Types [...] filedocumented as of this encounter Results MR Knee [...] ty documented in this encounter Care Teams Actuarial Mathematician Relationship Specialty Start Date End Date Pcp, Skinny Rosario MD PCP - General 07/14/18 06/14/20 [place] [address] documented as of this encounter
[2022-06-17] MEDS: PERFLUTREN LIPID MICROSPHERES 2 ML VIAL IV (16:14)
== END 2022-06-17 14:38 | disposition home or self-care (01) ==
PROVIDERS: PCP Family Medicine; Visit Provider Family Medicine
DX: I50.9 Heart failure, unspecified (principal); I51.7 Cardiomegaly
CPT/HCPCS: 93306; Q9957

== ENCOUNTER 2023-05-15 11:00 | Outpatient (CLI) | payer MEDICARE, BC, SELFPAY | END 2023-05-15 11:01 | disposition home or self-care (01) | LOC: NFLDREF 05-21 09:39 | PROVIDERS: PCP Family Medicine; Referring Provider Family Medicine; Visit Provider Family Medicine | DX: I50.9 Heart failure, unspecified (principal); E03.9 Hypothyroidism, unspecified | CPT/HCPCS: 80048; 83880; 84443; 85025 ==

== ENCOUNTER 2023-05-26 13:30 | Outpatient (CLI) | payer MEDICARE, BC, SELFPAY ==
[2023-05-26 21:39] LABS: Chloride* 100 mmol/L (96-114); Potassium* 4.4 mmol/L (3.6-5.1); Sodium* 136 mmol/L (135-149)
[2023-05-26 21:41] LABS: Cholesterol* 144 mg/dL (90-199); HDL Cholesterol* 54 mg/dL (>=40); LDL Cholesterol Calculated 68 mg/dL (<100); Triglycerides* 111 mg/dL (40-149)
[2023-05-26 21:42] LABS: Anion Gap 7 mEq/L (7-15); Blood Urea Nitrogen* 27 mg/dL (7-30); Calcium* 9.1 mg/dL (8.4-10.6); Carbon Dioxide* 29 mmol/L (20-32); Creatinine* 0.9 mg/dL (0.5-1.5); Estimated Glomerular Filt Rate 91 ml/min; Glucose* 97 mg/dL (60-115)
[2023-05-26 22:12] LABS: PSA Screen* 0.52 ng/mL (0.10-4.00)
[2023-05-26 22:13] LABS: Thyroid Stimulating Hormone* 0.621 uIU/mL (0.270-4.20)
== END 2023-05-26 13:31 | disposition home or self-care (01) ==
PROVIDERS: PCP Family Medicine; Visit Provider Family Medicine
DX: E78.5 Hyperlipidemia, unspecified (principal); E03.9 Hypothyroidism, unspecified; I10 Essential (primary) hypertension; Z12.5 Encounter for screening for malignant neoplasm of prostate
CPT/HCPCS: 80048; 80061; 84153; 84443

== ENCOUNTER 2024-03-02 09:15 | Outpatient (CLI) | payer MEDICARE, BC, SELFPAY ==
--- OUTSIDE RECORDS SUMMARY | 2024-03-02 09:29 | XMS_ITS | Encounter Summary ---
Author Organization [facility] Address [address] [address] Care Team Providers Care Steam Brush Operator Name Role Phone Clinician, Not Found MD Primary Care Provider Un available Reason for Visit * Procedure/Equipment (Routine) - Incomplete Specialty Diagnoses / Procedures Referred By Contac t Referred To Contact Diagnoses Pain of left hip Procedures XR Pelvis W Lt Lateral Hip Sanjay Leach DO [address] [facility] [place] [id number] Referral ID Status Reason Start Date Expiration Date V isits Requested Visits Authorized [id number] Incomplete 02/12/2024 05/13/2025 1 1 Encounter Details Date Type Department Care Team (Late st Contact Info) Description 02/12/2024 7:10 PM CDT Ancillary Procedure [facility] [address] Radiology [address] [place] [phone] Sanjay Leach DO [address] [facility] [place] [address] Pain of left hip Social History Tobacco Use Types Packs/Day Years Used Date Smoking Tobacco: Never Smokeless Tobacco: Never Sex and Gender Information Value Date Recorded Sex Assigned at Not on file Gender Identity Not on file Sexual Orientation Not on file documented as of this encounter Plan of Treatment Not on file documented as of this encounter Procedures Procedure Name Priority Date/Time Associated Diagnosis Comments XR PELVIS W LT LATERAL HIP Routine 02/12/2024 7:20 PM CDT Pain of left hip documented in this encounter Results * XR Pelvis W Lt Lateral Hip (02/12/2024 7:20 PM CDT) Anatomical Region Laterality Modality Pelvis, Hip Digital Radiogra phy 02/12/2024 7:09 PM CDT Impressions 02/12/2024 7:27 PM CDT COMPARISON: ??Pelvic MRI 03/13/2023, pelvic x-rays 02/26/2023 FINDINGS: ??Moderate osteoarthritis of both hip joints not significantly changed. No fracture or subluxation. Narrative Procedure Note Rommel Garcia MD - 02/12/2024 IMPRESSION COMPARISON: Pelvic MRI 03/13/2023, pelvic x-rays 02/26/2023 FINDINGS: Moderate osteoarthritis of both hip joints not significantlychanged. No fracture or subluxation. Sanjay BEACH GD documented in this encounter Visit Diagnoses Diagnosis Pain of left hip documented in this encounter Care Teams Steam Brush Operator Relationship Specialty Start Date End Date Clinician, Not Found, [place] [address] PCP - General 06/23/20 documented as of this encounter
--- OUTSIDE RECORDS SUMMARY | 2024-03-02 09:29 | XMS_ITS | Encounter Summary ---
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 The recommended service and/or location may not be covered by your insurance plan. Please call the number on your insurance card to find out your specific benefits and coverage for the recommended services and/or location. If you need help scheduling the recommended services, please ask your clinician's staff to assist you. Question Answer Appointment Urgency? Non-Urgent Requested Services Evaluate and treat May use saline for irrigation or cleansing Yes dexamethasone use Yes May check glucose per protocol (see policy link below) or if patient has symptoms? Yes Comments [facility] [place] Chronic left LLBP; Lumbar spondylosis; scoliosis to right; stenosis L34 with left low back and glute pain Weak erectors Failed ILESI L34, Facet injections; Bursal and Hip injection Reason for Visit * Reason Comments Orders Needed PT Encounter Details Date Type Department Care Team (Late st Contact Info) Description 07/28/2023 Telephone [facility] [address] [place], [place] [address] Kathi Fry PA-C [address] [place] [address] Orders Needed (PT) Social History Tobacco Use Types Packs/Day Years Used Date Smoking Tobacco: Never Smokeless Tobacco: Never Sex and Gender Information Value Date Recorded Sex Assigned at Not on file Gender Identity Not on file Sexual Orientation Not on file documented as of this encounter Nursing Notes * Stefania Vanessa, RN - 07/28/2023 3:14 PM CDT Order faxed to [facility] to [facility] at [phone]. LVM for patient informinghim. * Astrid Soliz - 07/28/2023 1:18 PM CDT ORDERS / REFERRAL What referral/order are you requesting: PT Why is the referral/order needed: schedule Where would you like the order/referral sent to: Back to [facility] in [place] What is their fax number: [phone] If we are unable to reach you can we leave a detailed message on your voicemail? Yes If we are unable to reach you can we send you a message in [employer]? No [Physician Practice Coordinator/Rubber Mold Maker: Relay to patient; We make every effort to get back to you sameday, however it may take 1-2 business days depending on the nature of the communication.] [Physician Practice Coordinator/Rubber Mold Maker: Please inform the patient that a referral/order does not guarantee insurance coverage. 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) Primary osteoarthritis of left hip Ordered: 07/28/2023 documented as of this encounter Visit Diagnoses Diagnosis Spinal stenosis of lumbar region, unspecified whether neurogenic claudication present- Primary Sacroiliac joint pain (HRC) Disorders of sacrum 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
--- OUTSIDE RECORDS SUMMARY | 2024-03-02 09:29 | XMS_ITS | Encounter Summary ---
Author Organization [facility] Address [address] [address] Care Team Providers Care Finishing Supervisor Name Role Phone Clinician, Not Found MD Primary Care Provider Un available Reason for Visit * Reason Comments Questions Encounter Details Date Type Department Care Team (Late st Contact Info) Description 12/30/2023 Telephone [facility] [address] [place], [place] [phone] Zakia Carrillo, DONOR SERVICES MANAGER, INTELLIGENCE OFFICER BASIC [address] [place] [address] Questions Social History Tobacco Use Types Packs/Day Years Used Date Smoking Tobacco: Never Smokeless Tobacco: Never Sex and Gender Information Value Date Recorded Sex Assigned at Not on file Gender Identity Not on file Sexual Orientation Not on file documented as of this encounter Nursing Notes * Stephy Campos RN - 12/31/2023 11:25 AM CDT Left VM for patient, regarding provider response. If symptoms have not changed locations, updated MRI not necessarily warranted as imaging completed in 2022. Schedule follow-up visit for further discuss, or consider pain clinic referral. * Stefania Vanessa RN - 12/30/2023 4:11 PM CDT Patient reports he is still having the same type of symptoms but they may be worsening. Patient will be back the 15 of January. He is wondering about doing a new MRI just to have the information updated and also wondering aboutpotentially being referred for RFA. Per last visit note from 11/19/23: discuss LMBB but [place] * Erendira Prince - 12/30/2023 3:02 PM CDT GENERAL QUESTIONS How may we help you today? Patient requesting call back. Please advis. Describe your symptoms/concerns: patient is calling to speak with aZkia Carrillo APRN, CNP. Patientwould like to discuss a referral to the pain clinic and the possibility of having another MRI. When did the issue start: NA Have you been seen for this recently?: Yes: Date: 11/19/2023 Provider: Zakia Carrillo APRN, CNP If we are unable to reach you can we leave a detailed message on your voicemail? Yes If we are unable to reach you can we send you a message in [employer]? No [Oracle Ebs Consultant/Geriatric Social Work Professor: Relay to patient; We make every effort to get back to you sameday, however it may take 1-2 business days depending on the nature of the communication.] documented in this encounter Plan of Treatment Not on file documented as of this encounter Visit Diagnoses Not on filedocumented in this encounter Care Teams Finishing Supervisor Relationship Specialty Start Date End Date Clinician, Not Found, [place] [address] PCP - General 06/23/20 documented as of this encounter
--- OUTSIDE RECORDS SUMMARY | 2024-03-02 09:29 | XMS_ITS | Clinical Summary ---
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 0 08/02/20 20 Active rivaroxaban (Xarelto) 20 mg tabletIndications :Atrial fibrillation, unspecified type (HC) Take 1 Tablet (20 mg) by mouth once daily with evening meal. 90 Tablet 3 02/11/20 23 Active traZODone (DESYREL) 100 mg tablet Take 200 mg by mouth at bedtime if needed for Sleep. 05/06/20 23 Active rosuvastatin (CRESTOR) 10 mg tabletIndications :Coronary artery disease, unspecified vessel or lesion type, unspecified whether angina present, unspecified whether [place] or transplanted heart Take 1 Tablet (10 mg) by mouth at bedtime. 90 Tablet 3 10/07/19 24 Active oxygen-air delivery systems (HOME OXYGEN)Indication s:Sepsis due to Streptococcus species with acute organ dysfunction, unspecified organ dysfunction type, unspecified whether septic shock present (HC),HFrEF (heart failure with reduced ejection fraction) (HC) Oxygen for home use. Liters per minute: 1 L/min per nasal cannula. Frequency of use: With activity.;. Length of need: 99 Months. 1 Each 10/21/19 24 Active furosemide (LASIX) 20 mg tabletIndications :Chronic systolic heart failure (HC) Take 2 Tablets (40 mg) by mouth once daily. Dose increased by PCP (outside [facility]) 10/24. 10/24/19 24 Active sotaloL (BETAPACE) 120 mg tabletIndications :Atrial fibrillation, unspecified type (HC) Take 1 Tablet (120 mg) by mouth every 12 hours. Hold if blood pressure is less than 90/60. 60 Tablet 6 11/12/19 Active empagliflozin (Jardiance) 10 mg tabletIndications :Chronic systolic heart failure (HC) Take 1 Tablet (10 mg) by mouth once daily. 90 Tablet 3 01/29/20 Active Zepbound 2.5 mg/0.5 mL pen Inject 2.5 mg subcutaneous once weekly. 02/03/20 24 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 BiPAP 02/10/20 24 Active rOPINIRole (REQUIP) 4 mg tablet Take 4 mg by mouth two times daily. Active rOPINIRole (REQUIP) 4 mg tablet Take 8 mg by mouth at bedtime. Active levothyroxine (Synthroid) 112 mcg tablet Take 112 mcg by mouth two times daily. Active gabapentin (NEURONTIN) 300 mg capsule Take 300-600 mg by mouth at bedtime if needed (RLS). Active cyclobenzaprine (FLEXERIL) 10 mg tablet Take 10 mg by mouth 3 times daily if needed for Muscle Spasm. Active oxyCODONE (ROXICODONE) 5 mg immediate release tabletIndications :Hematoma of left lower extremity, initial encounter,Closed fracture of neck of left femur, initial encounter (HC) Take ONE-HALF tablet (2.5 mg) by mouth every 4 hours if needed for Pain (For moderate to severe pain.). 10 Tablet 02/20/20 24 Active wheelchairIndicat ions:Closed fracture of neck of left femur, initial encounter (HC) Wheelchair: Bariatric (over 250 lbs) with leg rests: (Elevating Length of need: 12 months 1 Each 02/21/20 24 Active levothyroxine (SYNTHROID) 112 mcg tabletIndications :Hypothyroidism, unspecified type TAKE 2 TABLETS BY MOUTH BEFORE BREAKFAST 60 tablet 06/24/20 19 024 Discontinued(Ph armacist change per medication history (E-cancel not sent)) rOPINIRole (REQUIP) 4 mg tablet Take 4 mg by mouth three times daily. 07/04/20 21 024 Discontinued(Ph armacist change per medication history (E-cancel not sent)) hydrocortisone 1 % creamIndications: Atrial fibrillation status post cardioversion (HC) Apply topically to affected area(s) 4 times daily if needed (post cardioversion). 0 09/05/20 23 024 Discontinued(Ph armacist change per medication history (E-cancel not sent)) melatonin 3 mg tabletIndications :Insomnia, unspecified type Take 1 Tablet (3 mg) by mouth at bedtime. 30 Tablet 10/21/19 24 024 Discontinued(*P atient states no longer taking) sodium chloride 0.9 % syrg syringe Inject 10 mL intravenous one time. Prior to PICC line flush before/after antibiotic administration 024 Discontinued(*P atient states no longer taking) heparin 100 unit/mL soln IV Lock (100 units/mL) Flush Inject 5 mL intravenous one time. Flush to lock PICC line. 024 Discontinued(*P atient states no longer taking) spironolactone (ALDACTONE) 25 mg tabletIndications :Hypertension, unspecified type Take 1 Tablet (25 mg) by mouth once daily. Hold if blood pressure is less than 90/60. 90 Tablet 3 11/04/19 024 Discontinued(Re order (E-cancel not sent)) sacubitril-valsar potter (ENTRESTO) 24-26 mg tabletIndications :HFrEF (heart failure with reduced ejection fraction) (HC) Take 1 Tablet by mouth two times daily. Hold if blood pressure is less than 90/60. 60 Tablet 01/01/20 24 024 Discontinued(Re order (E-cancel not sent)) sacubitril-valsar potter (ENTRESTO) 24-26 mg tabletIndications :HFrEF (heart failure with reduced ejection fraction) (HC) Take 1 Tablet by mouth two times daily. Hold if blood pressure is less than 90/60. 180 Tablet 3 02/10/20 24 024 Discontinued(*I P Discontinued) spironolactone (ALDACTONE) 25 mg tabletIndications :Hypertension, unspecified type Take 1 Tablet (25 mg) by mouth once daily. Hold if blood pressure is less than 90/60. 90 Tablet 3 02/10/20 24 024 Discontinued(*I P Discontinued) wheelchairIndicat ions:Closed fracture of neck of left femur, initial encounter (HC) Wheelchair: Bariatric (over 250 lbs) with leg rests: (Elevating Length of need: 12 months 1 Each 02/20/20 24 024 Discontinued cephalexin (KEFLEX) 500 mg capsuleIndication s:Cellulitis of left lower extremity Take 1 Capsule (500 mg) by mouth four times daily for 5 days. 20 Capsule 02/21/20 24 024 Active Problems Problem Noted Date Diagnosed Date Left displaced femoral neck fracture 02/25/2024 Fracture of femoral neck, left, closed 4 MELANIE treated with BiPAP 02/17/2024 Acute blood loss anemia 02/17/2024 MEGAN (acute kidney injury) 02/17/2024 Acute on chronic HFrEF (hear t failure with reduced ejection fraction) 02/17/2024 Streptococcal sepsis 10/18/2023 Need for vaccination 10/18/2023 Atrial fibrillation, persistent 10/14/2023 Atrial tachycardia 10/14/2023 Primary cardiomyopathy 06/16/2020 ICD (implantable cardioverter-defibrillator) 08/03/201908/04/2019 History of aortic root repair 07/08/2019 Hypertension 12/03/2015 S/P Maze operation for atrial fibrillation 10/15 ACP (advance care planning) 09/10/2011 Overview: Patient has identified Health Care Agent(s): No Add Health Care Agents: No Patient has Advance Care Plan Documents (Health Care Directive, POLST): No, spouse refused. Stated they know what eachothers wishes are and do not want to put in writing. Patient has identified Specific Treatment Preferences: No Specific limits to treatment preferences NOT identified: ASSUME FULL TREATMENT. Per pt his spouse and dtr would be primary and secondary concerned persons: Spouse Alexus Petty [phone] Daughter Zuri [phone] Hypothyroidism 09/10/2011 Atrial fibrillation Overview: - 07/31/11: s/p DCCV - 09/09/11: Left MAZE with ligation of PETRA *post op afib treated with short term anticoagulation -12/06/2013 recurrent atrial fibrillation with ventricular rate 122bpm Ascending aorta dilation Overview: -09/09/11: S/p Aortic Valve Sparing Root Repair with a 34 mm Valsalva Graft and Left Sided MAZE with Ligation of Left Atrial Appendage by Dr. Ashton. 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 Ashton. Hypothyroidism 02/17/2024 Encounters Date Type Department Care Team Description 03/01/2024 Home Care Visit [facility] [address] [place] [address] Valentina Green, PT CARE COORDINATION 02/26/2024 11:40 AM CDT Ancillary Procedure [facility] [address] [place] [address] [address] [place] [phone] 02/26/2024 11:00 AM CDT Office Visit [facility] [address] [place] [address] [address] [place] [phone] Riaz Peterson MD Hip Pain/problem (left hip pain) 02/26/2024 4:30 AM CDT Home Care Visit [facility] [address] [place] [address] Katharine Nieves OT OT - MISSED VISIT 02/26/2024 Home Care Visit [facility] [address] [place] [address] Valentina Green, PT EPISODE DISCHARGE 02/26/2024 Travel 02/23/2024 9:30 AM CDT Home Care Visit [facility] [address] [place] [address] Brenda Moses, RN SN - OASIS START OF CARE 02/23/2024 Telephone [facility] [address] [place] [address] Brenda Moses, rumper 02/23/2024 Plan of Care Documentation [facility] [address] [place] [address] 02/20/2024 11:59 PM CDT Anesthesia Event [facility] [address], [place] [address] Sanjay Strickland MD 02/17/2024 8:19 PM CDT - 02/21/2024 11:03 AM CDT Hospital Encounter [facility] [address], [place] [address] Alba Ha, Rah Mcneal, Lucio Meza, DO Palacios, MD Shila Sampson, Danay Dickey MD [facility] Hospitalists Of Hematoma of left lower extremity, initial encounter (Primary Dx); Weakness; Weight gain; Cardiovascular symptoms; Closed fracture of neck of left femur, initial encounter (HC); Chronic HFrEF (heart failure with reduced ejection fraction) (HC); Cellulitis of left lower extremity Discharge Disposition: Home Health 02/17/2024 Travel 02/10/2024 9:30 AM CDT Office Visit [facility] [address] [facility] [address] [place] [address] Destin Johnston MD Office Visit (Appointment Note//IN PERSON F/U VISIT. LABS PRIOR//) 02/10/2024 8:30 AM CDT Orders Only [facility] [address] [facility] [address] [place] [address] Lab 02/10/2024 Travel 01/29/2024 Refill [facility] [address] [facility] [address] [place] [phone] Destin Johnston MD Refill Request 01/19/2024 1:30 PM CDT Orders Only [facility] [address] [place] [address] Lab, [facility] Lab 01/19/2024 Travel 01/16/2024 Orders Only [facility] [address] [facility] [address] [place] [phone] Destin Johnston MD <No scans attached> 01/01/[address] [facility] [address] [place] [address] Martha Warner RN <No scans attached> 12/03/2023 Telephone [facility] [address] [place] [address] Chai Espinosa, DPM Questions (TOE PAD/CUSHION CLARIFICATION ) from Last 3 Months Immunizations Name Administration Dates Next Due Influenza, IIV3 (Age >=3 years) 06/24/2013 Pneumococcal Poly,23-Valent (Pneumovax) 11/28/19 16 Zoster (Zostavax-ZVL, live) 06/24/2013 Family History Medical History Relation Name Comments Diabetes Mother Diabetes Son Relation Name Status Comments Mother Son Social History Tobacco Use Types Packs/Day Years Used Date Smoking Tobacco: Former Cigarettes 1 15 0 09/29/1980 - 09/29/1995 Smokeless Tobacco: Never Tobacco Cessation:Counseling Given: Yes Alcohol Use Standard Drinks/Week Comments Yes 0 (1 standard drink = 0.6 oz pur e alcohol) Social PHQ-2 Answer Date Recorded PHQ-2 Score 0 12/07/2018 Social Connections Answer Date Recorded Frequency of Communication with Friends and Fami ly Not on file 09/19/2021 Financial Resource Strain Answer Date R ecorded Difficulty of Paying Living Expenses Not on file 09/19/2021 Difficulty of Paying Living Expenses Not on file 09/19/2021 Sex and Gender Information Value Date Recorded Sex Assigned at Not on file Gender Identity Not on file Sexual Orientation Not on file Obstetrics History Last Filed Vital Signs Vital Sign Reading Time Taken Comments Blood Pressure 92/54 02/23/2024 11:01 AM CDT Pulse 70 02/23/2024 11:00 AM CDT Temperature 36.6 ??C (97.8 ??F) 02/23/2024 1 1:00 AM CDT Respiratory Rate 20 02/23/2024 11:0 0 AM CDT Oxygen Saturation 90% 02/23/2024 11: 30 AM CDT RA after short walk Inhaled Oxygen Concentration - - Weight 136.1 kg (300 lb) 02/23/2024 11: 00 AM CDT Height 200.7 cm (6' 7) 02/23/2024 11:0 0 AM CDT Body Mass Index 33.8 02/23/2024 11:00 AM CDT Plan of Treatment Upcoming Encounters Date Type Department Care Team (Late st Contact Info) Description 03/02/2024 1:00 PM CDT Office Visit [facility] [address] [facility] [address] [place] [address] Erendira Sotomayor, LIDYA [address] [facility] [address] [place] [address] 03/11/2024 11:15 AM CDT Office Visit [facility] [place] [address] [facility] [address] [place] [phone] Riaz Peterson MD [address] [facility] [address] [place] [address] Health Maintenance Due Date Last Done Comments Tdap 1961 Hepatitis C screening for ag e 18-79 1968 Tetanus booster 1970 Zoster (shingles) series for age 50+ (2 of 3) 08/19/2013 06/24/2013 AAA screening age 65-74 2015 Colonoscopy through age 75 08/07/201608/07 (Completed outside of [facility]) Pneumococcal series for age 65+ (2 of 2 - PCV) 11/27/2016 11/28/2015 Medicare Wellness for age 65+ 11/28/2016 11/28/2015 Depression screening for age 12+ 12/08/2019 12/08/19 19, 11/28/2015 Lipids for age 45-75 01/07/2023 01/07/2018, 03/03/2017, 11/28/2015, Additional history exists COVID-19 vaccine series (2 - season) 2023 06/27/2021 Influenza for age 65+ 05/30/2024 06/24/2013 BMI (ht and wt on same day) for age 18+ 02/09/2025 02/10/2024, 05/27/2023, 01/14/2023, Additional history exists Medical Devices Implanted Type Area Remote Sensing Engineer Device Identifier Shelf Expiration Date Model / Serial / Lot Graft Valsalva 34mm - [id number] Implanted:Qty: 1 on 09/09/2011 at [facility] [employer] [id number] / / Procedures Procedure Name Priority Date/Time Associated Diagnosis Comments XR HIP 2 OR 3 VIEWS W PELVIS LEFT Routine 02/26/2024 11:52 AM CDT Left displaced femoral neck fracture (HC) SCAN-CARDIAC STRIP 02/21/2024 9: 16 AM CDT MAGNESIUM Early AM 02/21/2024 7:50 AM CDT PLATELET COUNT Early AM 02/21/2024 7:50 AM CDT WHITE BLOOD COUNT Early AM 02/21/2024 7:5 0 AM CDT HEMOGLOBIN Early AM 02/21/2024 7:50 AM CDT BASIC METABOLIC PANEL Early AM 02/21/2024 7:50 AM CDT SCAN-CARDIAC STRIP 02/21/2024 4: 55 AM CDT ECHO TTE LIMITED W CONTRAST W COLOR W DOPPLER CARLOS 02/20/2024 2:56 PM CDT CREATININE CARLOS 02/20/2024 1:13 PM CDT BUN CARLOS 02/20/2024 1:13 PM CDT HEMATOCRIT CARLOS 02/20/2024 1:13 PM CDT HEMOGLOBIN CARLOS 02/20/2024 1:13 PM CDT PLATELET COUNT CARLOS 02/20/2024 1:13 PM CDT APTT CARLOS 02/20/2024 1:13 PM CDT PROTIME-INR CARLOS 02/20/2024 1:13 PM CDT GLUCOSE METER Timed 02/20/2024 12:05 PM CDT CALCIUM IONIZED HOSPITAL DRAW ONLY STAT 02/20/2024 11:20 AM CDT GLUCOSE METER Timed 02/20/2024 7:43 AM CDT XR PELVIS 1 VIEW Routine 02/20/2024 7:27 AM CDT SCAN-CARDIAC STRIP 02/20/2024 7: 02 AM CDT MAGNESIUM Early AM 02/20/2024 5:48 AM CDT PLATELET COUNT Early AM 02/20/2024 5:48 AM CDT WHITE BLOOD COUNT Early AM 02/20/2024 5:4 8 AM CDT HEMOGLOBIN Early AM 02/20/2024 5:48 AM CDT BASIC METABOLIC PANEL Early AM 02/20/2024 5:48 AM CDT GLUCOSE METER Timed 02/20/2024 2:15 AM CDT SCAN-CARDIAC STRIP 02/19/2024 6: 40 PM CDT COMPREHENSIVE BLOOD GAS MIXED VENOUS Timed 02/19/2024 10:03 AM CDT CV PROCEDURE TO BE PERFORMED Today 02/19/2024 9:55 AM CDT CVL OTHER PROCEDURE Routine 02/19/2024 9 :53 AM CDT Cardiovascular symptoms CBC WITH AUTO DIFFERENTIAL Early AM 02/19/2024 7:54 AM CDT BASIC METABOLIC PANEL Early AM 02/19/2024 7:54 AM CDT MAGNESIUM Early AM 02/19/2024 7:54 AM CDT CBC WITH AUTO DIFFERENTIAL Early AM 02/19/2024 7:54 AM CDT SCAN-CARDIAC STRIP 02/19/2024 7: 30 AM CDT HEMOGLOBIN STAT 02/19/2024 1:37 AM CDT SCAN-OPERATIVE/PROCEDUR E REPORT 02/19/2024 12:00 AM CDT GLUCOSE METER Timed 02/18/2024 10:00 PM CDT SCAN-CARDIAC STRIP 02/18/2024 8: 21 PM CDT SCAN-CARDIAC STRIP 02/18/2024 4: [address] 3D RECONSTRUCTION W POSTPROCESS INDP WKST STAT 02/18/2024 1:15 PM CDT MAGNESIUM CARLOS 02/18/2024 8:01 AM CDT HEMOGLOBIN Timed 02/18/2024 8:01 AM CDT BASIC METABOLIC PANEL Early AM 02/18/2024 8:01 AM CDT SCAN-CARDIAC STRIP 02/18/2024 7: 41 AM CDT XR HIP 2 OR 3 VIEWS W PELVIS LEFT STAT 02/18/2024 7:41 AM CDT TYPE & SCREEN Timed 02/18/2024 2:03 AM CDT HEMOGLOBIN Timed 02/18/2024 2:[address] LOWER EXTREMITY LEFT W STAT 02/17/2024 11:14 PM CDT XR CHEST 1 VIEW PORTABLE STAT 02/17/2024 10:19 PM CDT US VENOUS LOWER EXTREMITY LEFT PORTABLE STAT 02/17/2024 9:09 PM CDT CBC WITH AUTO DIFFERENTIAL STAT 02/17/2024 8:40 PM CDT PROTIME-INR STAT 02/17/2024 8:40 PM CDT PRO-BNP STAT 02/17/2024 8:40 PM CDT COMP METABOLIC PANEL STAT 02/17/2024 8:40 PM CDT CBC WITH AUTO DIFFERENTIAL STAT 02/17/2024 8:40 PM CDT PRO-BNP Routine 02/10/2024 8:50 AM CDT Chronic systolic heart failure (HC) BASIC METABOLIC PANEL Routine 02/10/2024 8:50 AM CDT Chronic systolic heart failure (HC) PRO-BNP Routine 01/19/2024 1:41 PM CDT Chronic systolic heart failure (HC) BASIC METABOLIC PANEL Routine 01/19/2024 1:41 PM CDT Chronic systolic heart failure (HC) LIPID PANEL Routine 01/07/2018 4:35 PM CDT Hypertension from Last 3 Months or Most Recently Relevant to Health Maintenance Results * XR HIP 2 OR 3 VIEWS W PELVIS LEFT (02/26/2024 11:52 AM CDT) Only the most recent of2 resultswithin the time period is included. Anatomical Region Laterality Modality HIPS, HIPL, Pelvis Computed Radi ography Impressions 03/01/2024 5:34 PM CDT As noted in findings above. Reading services were personally performed by Riaz Peterson MD, documentation performed by MARKIE Mendoza, ATC based on my observation of services performed and provider statements to me. Riaz Peterson MD 02/26/2024 Narrative 03/01/2024 5:34 PM CDT For Patients: ??As a result of the Cures Act, medical imaging exams and procedure reports are released immediately into your electronic medical record. ??You may view this report before your referring provider. ?? If you have questions, please contact your health care provider. This radiology exam was performed at the [facility] in [place] and interpreted by Riaz Peterson MD. HISTORY: A 73 y.o. year-old male with left hip pain with history of trauma. TECHNICAL: 3 views of the left hip and pelvis were obtained consisting of a weightbearing AP pelvis with the hips on top and hips internally rotated, AP and lateral of left hip. FINDINGS: No obvious fracture in the right or left hip. Correlation with old CAT scan does correlate with a nondisplaced left femoral neck fracture. Posterior cortex is intact. Pre-existing right and left arthritic changes are known to be present about both right and left hip. No acute fracture and dislocation other than the 1 noted. Riaz Peterson MD GENERAL IMAGING * SCAN-CARDIAC STRIP (02/21/2024 9:16 AM CDT) Scanner OTHER * Platelets AM (02/21/2024 7:50 AM CDT) Only the most recent of3 resultswithin the time period is included. PLATELET COUNT 280 140 - 440 thou/cu mm 02/21/2024 8:10 AM CDT [facility] MPV 8.7 6.5 - 11.0 fL 02/21/2024 8:10 AM CDT [facility] Blood BLOOD SPECIMEN / Unknown Venipuncture / Unknown 02/21/2024 7:50 AM CDT 02/21/2024 8:01 AM CDT Danay Fuchs MD HEMATOLOGY Performing Organization Address City/[facility] Co de Phone Number [facility] [address] [place] [address], * (ABNORMAL) WBC AM (02/21/2024 7:50 AM CDT) Only the most recent of2 resultswithin the time period is included. WHITE BLOOD COUNT 12.5(H) 4.5 - 11.0 thou/cu mm 02/21/2024 8:10 AM CDT [facility] NRBC 0.0 % 02/21/2024 8:10 AM CDT [facility] ABS NRBC 0.0 thou /cu mm 02/21/2024 8:10 AM CDT [facility] Blood BLOOD SPECIMEN / Unknown Venipuncture / Unknown 02/21/2024 7:50 AM CDT 02/21/2024 8:01 AM CDT Danay Fuchs MD HEMATOLOGY Performing Organization Address City/[facility]/ZIP Co de Phone Number [facility] [address] [place] [address], * (ABNORMAL) Hemoglobin AM (02/21/2024 7:50 AM CDT) Only the most recent of6 resultswithin the time period is included. HEMOGLOBIN 10.0(L) 13.5 - 17.5 g/dL 02/21/2024 8:10 AM CDT [facility] MCV 99 80 - 100 fL 02/21/2024 8:10 AM CDT [facility] Blood BLOOD SPECIMEN / Unknown Venipuncture / Unknown 02/21/2024 7:50 AM CDT 02/21/2024 8:01 AM CDT Danay Fuchs MD HEMATOLOGY Performing Organization Address [facility] Co de Phone Number [facility] [address] [place] [address], * Magnesium AM (02/21/2024 7:50 AM CDT) Only the most recent of4 resultswithin the time period is included. MAGNESIUM 2.4 1.6 - 2.4 mg/dL 02/21/2024 8:30 AM CDT [facility] Blood BLOOD SPECIMEN / Unknown Venipuncture / Unknown 02/21/2024 7:50 AM CDT 02/21/2024 8:02 AM CDT Tayler Woodward NP CHEMISTRY Performing Organization Address [facility] de Phone Number [facility] [address] [place] [address], * (ABNORMAL) BASIC METABOLIC PANEL (02/21/2024 7:50 AM CDT) Only the most recent of6 resultswithin the time period is included. SODIUM 136 136 - 145 mmol/L 02/21/2024 8:30 AM CDT [facility] POTASSIUM 4.5 3.5 - 5.1 mmol/L 02/21/2024 8:30 AM CDT [facility] CHLORIDE 97(L) 98 - 107 mmol/L 02/21/2024 8:30 AM CDT [facility] CO2,TOTAL 31(H) 22 - 29 mmol/L 02/21/2024 8:30 AM CDT [facility] ANION GAP 8 5 - 18 02/21/2024 8:30 AM CDT [facility] GLUCOSE 100(H) 70 - 99 mg/dL 02/21/2024 8:30 AM CDT [facility] CALCIUM 9.2 8.8 - 10.2 mg/dL 02/21/2024 8:30 AM CDT [facility] BUN 30(H) 8 - 23 mg/dL 02/21/2024 8:30 AM CDT [facility] CREATININE 0.94 0.70 - 1.20 mg/dL 02/21/2024 8:30 AM CDT [facility] BUN/CREAT RATIO 32(H) 10 - 20 8:30 AM CDT [facility] eGFR 86(L) >90 mL/min/1.7 3m2 02/21/2024 8:30 AM CDT [facility] Comment:As of 2021, eG FR is calculated by the CKD-EPI creatinine equation without race adjustment. ??eGFR can be influenced by muscle mass, exercise, and diet. ??The reported eGFR is an estimation only and is only applicable if the renal function is stable. Blood BLOOD SPECIMEN / Unknown Venipuncture / Unknown 02/21/2024 7:50 AM CDT 02/21/2024 8:02 AM CDT Kathleen ARMAS CHEMISTRY [facility] [address] [place] [address], * SCAN-CARDIAC STRIP (02/21/2024 4:55 AM CDT) Scanner OTHER * ECHO TTE LIMITED W CONTRAST W COLOR W DOPPLER (02/20/2024 2:56 PM CDT) AORTIC VALVE MEAN PG 4 mmHg PEAK TR VELOCITY 2.9 m/s EJECTION FRACTION 50 - 55% Anatomical Region Laterality Modality Ultrasound 02/20/2024 2:06 PM CDT Narrative 02/20/2024 3:10 PM CDT ECHOCARDIOGRAM RAIN PETTY ? Accession#: ?? [id number] : ?1950 73 years Study Date: ?? 02/20/2024 2:06:31 PM Gender: M ?BP: ? 81/43 mmHg Height: 200.00 cm ?BSA: ?2.74 m? ? ? Weight: 141.00 kg ?Tech: ? MKS ? Referring MD: THALIA HERNÁNDEZ Site: ? [facility] Reading Location: [facility] Patient Location: Inpatient. Procedure: Limited Echo w/ Contrast, Color Doppler and Limited Spectral Doppler. Indication for study: Hypotension Cardiac Rhythm: Normal sinus.Study quality: Imaging limitations: This study was subject to imaging limitations due to lying in a supine position and body habitus. Final Impressions: Limited Echocardiogram performed 1. Echo contrast was administered to enhance visualization of all left ventricular segments. 2. Not well visualized LV size, not well visualized wall thickness, low normal global systolic function with an estimated EF of 50 - 55%. 3. Apical septum segment, apical inferior segment, apical lateral segment, and apical anterior segment are abnormal. 4. Right ventricular cavity size is normal, global systolic RV function is normal. 5. Mild tricuspid regurgitation with a mildly elevated estimated RV systolic pressure of 43 mmHg. 6. IVC geometry compatible with an intermediate estimated RA pressure (8mmHg). Comparison Compared to prior exam of 10/19/2023, there has been no significant change. Perhaps global LV systolic function appears slightly improved. Regional wall motion abnormalities largely unchanged from prior. Chamber Sizes and Function Not well visualized left ventricular size, not well visualized wall thickness, low normal global systolic function with an estimated EF of 50 - 55%. Right ventricular cavity size is normal, global systolic RV function is normal. RV wall thickness is normal. The right atrium is normal. The apical septum segment and apical inferior segment are akinetic. The apical lateral segment and apical anterior segment are hypokinetic. All remaining scored segments are normal. Valves, RV Pressures and Diastolic Function The aortic valve is not well visualized , no stenosis and no regurgitation. The mitral valve is normal in structure, no mitral regurgitation. The tricuspid valve is normal in structure. Tricuspid regurgitation is mild. The tricuspid regurgitant velocity is 2.9 m/s, the estimated right ventricular systolic pressure is 35 mmHg plus right atrial pressure. Masses, Effusion, Shunts There is no pericardial effusion. The inferior vena cava is dilated, respiratory size variation greater than 50%. MEASUREMENTS AND CALCULATIONS 2-D Measurements and LV Function: HR 83 bpm Aortic Valve: Vmax ? 1.5 m/s Max PG ?9 mmHg VTI ?0.21 m ??Mean PG ?? 4 mmHg LVOT V max 1.1 m/s Dim Index 0.85 LVOT VTI ?? 0.18 m Tricuspid Valve and estimated PA pressures: TR Vmax 2.9 m/s TR maxG 35 mmHg Contrast documentation: 2 ml diluted Definity, lot #[id number], [facility]# [id number] was administered peripherally to enhance visualization of all left ventricular segments. . This study was interpreted by an [facility] accredited facility. ??Final ?? Procedure Note Thalia Hernández MD - 02/20/2024 ECHOCARDIOGRAM RAIN PETTY : 1950 73 years Study Date: 02/20/2024 2:06:31 PM Gender: M BP: 81/43 mmHg Height: 200.00 cm BSA: 2.74 m? ? ? Weight: 141.00 kg Tech: CAROLINE Referring MD: THALIA HERNÁNDEZ Site: [facility] Reading Location: [facility] Patient Location: Inpatient. Procedure: Limited Echo w/ Contrast, Color Doppler and Limited SpectralDoppler. Indication for study: Hypotension Cardiac Rhythm: Normal sinus.Study quality: Imaging limitations: This study was subject to imaging limitations due tolying in a supine position and body habitus. Final Impressions: Limited Echocardiogram performed 1. Echo contrast was administered to enhance visualization of all leftventricular segments. 2. Not well visualized LV size, not well visualized wall thickness, lownormal global systolic function with an estimated EF of 50 - 55%. 3. Apical septum segment, apical inferior segment, apical lateralsegment, and apical anterior segment are abnormal. 4. Right ventricular cavity size is normal, global systolic RV functionis normal. 5. Mild tricuspid regurgitation with a mildly elevated estimated RVsystolic pressure of 43 mmHg. 6. IVC geometry compatible with an intermediate estimated RA pressure(8mmHg). Comparison Compared to prior exam of 10/19/2023, there has been no significantchange. Perhaps global LV systolic function appears slightly improved. Regionalwall motion abnormalities largely unchanged from prior. Chamber Sizes and Function Not well visualized left ventricular size, not well visualized wallthickness, low normal global systolic function with an estimated EF of 50- 55%. Right ventricular cavity size is normal, global systolic RVfunction is normal. RV wall thickness is normal. The right atrium isnormal. The apical septum segment and apical inferior segment areakinetic. The apical lateral segment and apical anterior segment arehypokinetic. All remaining scored segments are normal. Valves, RV Pressures and Diastolic Function The aortic valve is not well visualized , no stenosis and noregurgitation. The mitral valve is normal in structure, no mitralregurgitation. The tricuspid valve is normal in structure. Tricuspidregurgitation is mild. The tricuspid regurgitant velocity is 2.9 m/s, theestimated right ventricular systolic pressure is 35 mmHg plus right atrialpressure. Masses, Effusion, Shunts There is no pericardial effusion. The inferior vena cava is dilated,respiratory size variation greater than 50%. MEASUREMENTS AND CALCULATIONS 2-D Measurements and LV Function: HR 83 bpm Aortic Valve: Vmax 1.5 m/s Max PG 9 mmHg VTI 0.21 m Mean PG 4 mmHg LVOT V max 1.1 m/s Dim Index 0.85 LVOT VTI 0.18 m Tricuspid Valve and estimated PA pressures: TR Vmax 2.9 m/s TR maxG 35 mmHg Contrast documentation: 2 ml diluted Definity, lot #[id number], [facility]#[id number] was administered peripherally to enhance visualization of allleft ventricular segments. . This study was interpreted by an [facility] accredited facility. Final Thalia Hernández MD ECHO ORD * (ABNORMAL) HEMATOCRIT (02/20/2024 1:13 PM CDT) [facility] HEMATOCRIT 32.4(L) 37.0 - 53.0 % 02/20/2024 1:30 PM CDT [facility] Blood BLOOD SPECIMEN / Unknown Venipuncture / Unknown 02/20/2024 1:13 PM CDT 02/20/2024 1:19 PM CDT Narrative [facility] - 02/20/2024 1:30 PM CDT Obtain before initiating IV heparin therapy if not done within previous 24 hours. Obtain before initiating IV heparin therapy if not done within previous 24 hours. Obtain before initiating IV heparin therapy if not done within previous 24 hours. Thalia Hernández MD HEMATOLOGY Performing Organization Address City/[facility]/ZIP Co de Phone Number [facility] [address] [place] [address], * (ABNORMAL) BUN (02/20/2024 1:13 PM CDT) Pathologist [facility] BUN 32(H) 8 - 23 mg/dL 02/20/2024 2:37 PM CDT [facility] Blood BLOOD SPECIMEN / Unknown Venipuncture / Unknown 02/20/2024 1:13 PM CDT 02/20/2024 1:19 PM CDT Thalia Hernández MD CHEMISTRY Performing Organization Address City/[facility]/ZIP Co de Phone Number [facility] [address] [place] [address], * (ABNORMAL) CREATININE (02/20/2024 1:13 PM CDT) [facility] eGFR 65(L) >90 mL/min/1.7 3m2 02/20/2024 2:37 PM CDT [facility] Comment:As of 2021, eG FR is calculated by the CKD-EPI creatinine equation without race adjustment. ??eGFR can be influenced by muscle mass, exercise, and diet. ??The reported eGFR is an estimation only and is only applicable if the renal function is stable. CREATININE 1.18 0.70 - 1.20 mg/dL 02/20/2024 2:37 PM CDT [facility] Blood BLOOD SPECIMEN / Unknown Venipuncture / Unknown 02/20/2024 1:13 PM CDT 02/20/2024 1:19 PM CDT Thalia Hernández MD CHEMISTRY Performing Organization Address City/[facility]/ZIP Co de Phone Number [facility] [address] [place] [address], * APTT (02/20/2024 1:13 PM CDT) APTT 35 28 - 36 sec 02/20/2024 1:41 PM CDT [facility] Blood BLOOD SPECIMEN / Unknown Venipuncture / Unknown 02/20/2024 1:13 PM CDT 02/20/2024 1:19 PM CDT Narrative [facility] - 02/20/2024 1:41 PM CDT Therapeutic Range: 57-87 seconds Thalia Hernández MD HEMATOLOGY Performing Organization Address City/[facility] Co de Phone Number [facility] [address] [place] [address], * (ABNORMAL) PROTIME-INR (02/20/2024 1:13 PM CDT) Only the most recent of2 resultswithin the time period is included. INR 1.2 <1.3 02/20/2024 1:41 PM CDT [facility] PROTIME 13.4(H) 10.3 - 12.3 sec 02/20/2024 1:41 PM CDT [facility] Blood BLOOD SPECIMEN / Unknown Venipuncture / Unknown 02/20/2024 1:13 PM CDT 02/20/2024 1:19 PM CDT Narrative [facility] - 02/20/2024 1:41 PM CDT ?Therapeutic Range 2.0-3.0 for most anticoagulated patients 2.5-3.5 or 4.0 for high risk patients The INR is only used for patients on stable oral anticoagulant therapy. It makes no significant contribution to the diagnosis or treatment of patients whose Protime is prolonged for other reasons. INR results are increased when heparin levels exceed 1.0 U/mL, which corresponds to an aPTT >125 seconds if the patient is on UFH. Thalia Hernández MD HEMATOLOGY Performing Organization Address City/[facility] Co de Phone Number [facility] [address] [place] [address], * (ABNORMAL) GLUCOSE METER (02/20/2024 12:05 PM CDT) Only the most recent of4 resultswithin the time period is included. GLUCOSE METER 121(H) 65 - 100 mg/dL 02/20/2024 12:06 PM CDT [facility] Blood BLOOD SPECIMEN / Unknown 02/20/2024 12:05 PM CDT 02/20/2024 12:06 PM CDT Danay Fuchs MD CHEMISTRY Performing Organization Address City/[facility]/ZIP Co de Phone Number [facility] [address] [place] [address], * CALCIUM IONIZED HOSPITAL DRAW ONLY (02/20/2024 11:20 AM CDT) CALCIUM,IONIZE D 1.16 1.15 - 1.27 mmol/L 02/20/2024 11:48 AM CDT [facility] Blood BLOOD SPECIMEN / Unknown Venipuncture / Unknown 02/20/2024 11:20 AM CDT 02/20/2024 11:30 AM CDT Willard Cole MD CHEMISTRY [facility] [address] [place] [address], * XR PELVIS 1 VIEW (02/20/2024 7:27 AM CDT) Anatomical Region Laterality Modality Pelvis Digital Radiogra phy 02/20/2024 7:47 AM CDT Impressions 02/20/2024 7:47 AM CDT Very subtle left femoral neck fracture is better seen on CT than radiographs. Dictated by Chantell Bobby MD @ Feb 20 2024 ??7:47AM (Electronically Signed) [email or web address] Narrative 02/20/2024 7:47 AM CDT For Patients: ??As a result of the Cures Act, medical imaging exams and procedure reports are released immediately into your electronic medical record. ??You may view this report before your referring provider. ??If you have questions, please contact your health care provider. INDICATION: : Fracture TECHNIQUE: AP pelvis one view COMPARISON: 02/18/2024, 02/17/2024 FINDINGS: Subtle cortical irregularity and sclerosis in the left femoral neck. The fracture line is not discretely visible. No displacement. No new fracture. Normal hip alignment with unchanged osteoarthritis. Procedure Note Chantell Bobby MD - 02/20/2024 For Patients: As a result of the Cures Act, medical imagingexams and procedure reports are released immediately into your electronicmedical record. You may view this report before your referring provider.If you have questions, please contact your health care provider. INDICATION: : Fracture TECHNIQUE: AP pelvis one view COMPARISON: 02/18/2024, 02/17/2024 FINDINGS: Subtle cortical irregularity and sclerosis in the left femoral neck. Thefracture line is not discretely visible. No displacement. No new fracture.Normal hip alignment with unchanged osteoarthritis. IMPRESSION: Very subtle left femoral neck fracture is better seen on CT thanradiographs. Dictated by Chantell Bobby MD @ Feb 20 2024 7:47AM (Electronically Signed) [email or web address] * SCAN-CARDIAC STRIP (02/20/2024 7:02 AM CDT) Scanner OTHER * SCAN-CARDIAC STRIP (02/19/2024 6:40 PM CDT) Scanner OTHER * (ABNORMAL) COMPREHENSIVE BLOOD GAS MIXED VENOUS (02/19/2024 10:03 AM CDT) O2 SATURATION, MEASURED, MIXED VENOUS 63(L) 70 - 75 % 02/19/2024 10:03 AM CDT [facility] PATIENT TEMPERATURE 37.0 Degrees C 02/19/2024 10:03 AM CDT [facility] HEMOGLOBIN,BLOO D GAS 10.3(L) 13.5 - 17.5 g/dL 02/19/2024 10:03 AM CDT [facility] Blood BLOOD SPECIMEN / Unknown 02/19/2024 10:03 AM CDT 02/20/2024 8:46 AM CDT Danay Fuchs MD CHEMISTRY [facility] [address] [place] [address], * CV Procedure to be Performed (02/19/2024 9:55 AM CDT) Narrative Thalia Hernández MD - 02/19/2024 9:55 AM CDT Thalia Hernández MD ? 02/19/2024 10:06 AM [facility] Advanced Heart Failure Procedure Note Right Heart Catheterization Procedure performed by Dr. Willard Cole. ??I was present throughout. Date of Service: 02/19/24 The patient understands the risks and benefits of procedure and signed informed consent was obtained. Time-out prior to procedure was observed in the operative theater to review/verify: allergies, procedure indications, and procedure site. Central line bundle elements were completed including preparatory hand cleansing, donning full barrier precautions, use of a full body drape and chlorhexidine gluconate skin prep. ??Using ultrasound guidance and a percutaneous technique the right internal jugular vein was accessed. ??Ultrasound was used to confirm vessel patency, localizing needle into the lumen of the vessel. ??For safety purposes, a picture was saved for the medical record. ?? Using modified Seldinger technique an 8 Fr cordis sheath was introduced. A 7 Fr PA catheter was advanced under fluoroscopic guidance into the right atrium, right ventricle, pulmonary artery, up to the wedge position. ??Right heart pressures were recorded. No complications occurred during the procedure. Patient was hemodynamically stable at the end of the procedure. ??[facility] for full list of medications and equipment used. Hemodynamics: Wt (!) 136.3 kg (300 lb 8 oz) ?? Heart Rate: 80 bpm Systemic BP: 115/58 (80) mmHg RA: 7 mmHg ?RV: ??47/2 (8) mmHg ?? PA: 49/23 (29) mmHg ? PCWP: 23 mmHg SvO2: 62.9% ?SaO2: 95% Estimated Bryant CO/CI: 7.61/2.81 SVR: 768 dsc^-5 TP mmHg ?? PVR: 0.8 WUs Case Comments: Access: ??Uncomplicated EBL: ??minimal Thalia Hernández MD [facility] Advanced Heart Failure/Transplant Cardiology/[facility] [place] [address] ?? Pager: [phone] Click for [email or web address] Kathleen ARMAS ACCOUNT UNDERWRITER ORD * CVL OTHER PROCEDURE (02/19/2024 9:53 AM CDT) Anatomical Region Laterality Modality Other 02/19/2024 9:53 AM CDT Provider Referring [facility] IMAG[facility] * (ABNORMAL) CBC WITH AUTO DIFFERENTIAL (02/19/2024 7:54 AM CDT) Only the most recent of2 resultswithin the time period is included. WHITE BLOOD COUNT 12.0(H) 4.5 - 11.0 thou/cu mm 02/19/2024 8:39 AM CDT [facility] RED BLOOD COUNT 3.37(L) 4.30 - 5.90 mil/cu mm 02/19/2024 8:39 AM T [facility] HEMOGLOBIN 10.7(L) 13.5 - 17.5 g/dL 02/19/2024 8:39 AM T [facility] HEMATOCRIT 32.8(L) 37.0 - 53.0 % 02/19/2024 8:39 AM [facility] MCV 97 80 - 100 fL 02/19/2024 8:39 AM CDT [facility] MCH 31.8 26.0 - 34.0 pg 02/19/2024 8:39 AM [facility] MCHC 32.6 32.0 - 36.0 g/dL 02/19/2024 8:39 AM [facility] RDW 14.6 11.5 - 15.5 % 02/19/2024 8:39 AM T [facility] PLATELET COUNT 273 140 - 440 thou/cu mm 02/19/2024 8:39 AM [facility] MPV 9.2 6.5 - 11.0 fL 02/19/2024 8:39 AM T [facility] NRBC 0.0 % 02/19/2024 8:39 AM T [facility] ABS NRBC 0.0 thou /cu mm 02/19/2024 8:39 AM T [facility] % NEUT 55.8 % 02/19/2024 8:39 AM CDT [facility] % LYMPH 25.2 % 02/19/2024 8:39 AM T [facility] % MONO 15.4 % 02/19/2024 8:39 AM CDT [facility] % EOS 2.1 % 02/19/2024 8:39 AM CDT [facility] % BASO 0.7 % 02/19/2024 8:39 AM CDT [facility] % IMMATURE GRAN (METAS,MYELOS,AZ OS) 0.8 % 02/19/2024 8:39 AM CDT [facility] ABSOLUTE NEUTROPHILS 6.7 1.7 - 7.0 thou/cu mm 02/19/2024 8:39 AM CDT [facility] ABSOLUTE LYMPHOCYTES 3.0(H) 0.9 - 2.9 thou/cu mm 02/19/2024 8:39 AM CDT [facility] ABSOLUTE MONOCYTES 1.9(H) <0.9 thou/cu mm 02/19/2024 8:39 AM CDT [facility] ABSOLUTE EOSINOPHILS 0.3 <0.5 thou/cu mm 02/19/2024 8:39 AM CDT [facility] ABSOLUTE BASOPHILS 0.1 <0.3 thou/cu mm 02/19/2024 8:39 AM CDT [facility] ABSOLUTE IMMATURE GRANULOCYTES(MET ,MYELOS,PROS) 0.1 <0.3 thou/cu mm 02/19/2024 8:39 AM CDT [facility] Blood BLOOD SPECIMEN / Unknown Venipuncture / Unknown 02/19/2024 7:54 AM CDT 02/19/2024 8:26 AM CDT Danay Fuchs MD HEMATOLOGY [facility] [address] [place] [address], * SCAN-CARDIAC STRIP (02/19/2024 7:30 AM CDT) Scanner OTHER * SCAN-OPERATIVE/PROCEDURE REPORT (02/19/2024 12:00 AM CDT) Narrative 02/19/2024 12:00 AM CDT Ordered by an unspecified provider. Other Clinical Staff OTHER * SCAN-CARDIAC STRIP (02/18/2024 8:21 PM CDT) Scanner OTHER * SCAN-CARDIAC STRIP (02/18/2024 4:06 PM CDT) Scanner OTHER * CT 3D RECONSTRUCTION W POSTPROCESS INDP WKST (02/18/2024 1:15 PM CDT) Anatomical Region Laterality Modality Computed Tomogra phy 02/18/2024 1:40 PM CDT Narrative 02/18/2024 1:40 PM CDT For Patients: ??As a result of the Cures Act, medical imaging exams and procedure reports are released immediately into your electronic medical record. ??You may view this report before your referring provider. ??If you have questions, please contact your health care provider. Three-dimensional reconstructed images were created on a dedicated workstation station for enhanced visualization of anatomy and pathology. Case interpreted by Dr. Rodríguez. Please see his report for further details. Please note that all CT scans at this facility use dose modulation, iterative reconstruction, and/or weight-based dosing when appropriate to reduce radiation dose to as low as reasonably achievable. Dictated by Albin Hunt MD @ 02/18/2024 1:40:43 PM (Electronically Signed) Procedure Note Albin Hunt MD - 02/18/2024 For Patients: As a result of the Cures Act, medical imagingexams and procedure reports are released immediately into your electronicmedical record. You may view this report before your referring provider.If you have questions, please contact your health care provider. Three-dimensional reconstructed images were created on a dedicatedworkstation station for enhanced visualization of anatomy and pathology. Case interpreted by Dr. Rodríguez. Please see his report for further details. Please note that all CT scans at this facility use dose modulation,iterative reconstruction, and/or weight-based dosing when appropriate toreduce radiation dose to as low as reasonably achievable. Dictated by Albin Hunt MD @ 02/18/2024 1:40:43 PM (Electronically Signed) Danay Fuchs MD CT * SCAN-CARDIAC STRIP (02/18/2024 7:41 AM CDT) Scanner OTHER * TYPE & SCREEN (02/18/2024 2:03 AM CDT) ABORH O Rh Positive 02/18/2024 2:58 AM CDT [facility] BLOOD BANK ANTIBODY SCREEN Negative Negative 02/18/2024 2:58 AM CDT [facility] BLOOD BANK SPECIMEN EXPIRATION DATE/TIME 02/21/24 23:59 02/18/2024 2:58 AM CDT [facility] BLOOD BANK Blood BLOOD SPECIMEN / Unknown Venipuncture / Unknown 02/18/2024 2:03 AM CDT 02/18/2024 2:10 AM CDT Rah Dyer DO BLOOD BANK [facility] BLOOD BANK [address] [place] [id number], * CT LOWER EXTREMITY LEFT W (02/17/2024 11:14 PM CDT) Anatomical Region Laterality Modality FEMUR L, KNEE L, ANKLE L, FOOT L Computed Tomography 02/18/2024 12:5 4 AM CDT Narrative 02/18/2024 12:54 AM CDT For Patients: ??As a result of the 21st Century Cures Act, medical imaging exams and procedure reports are released immediately into your electronic medical record. ??You may view this report before your referring provider. ??If you have questions, please contact your health care provider. Indication: Swelling with large visible hematoma. Technique: CT lower extremity left with 97 cc Omnipaque 350 IV contrast. Comparison: None. Findings: Subtle nondisplaced fracture in the left femoral neck. No other osseous abnormality. A large intramuscular hematoma extends from the fracture into the left thigh. The hematoma measures 22 x 8 cm. Generalized edema present throughout the left lower extremity. No convincing evidence for active bleeding. No other significant abnormality. Impression: Subtle left femoral neck nondisplaced fracture with an adjacent and inferior 22 x 8 cm hematoma in generalized edema throughout the left leg. Please note that all CT scans at this facility use dose modulation, iterative reconstruction, and/or weight-based dosing when appropriate to reduce radiation dose to as low as reasonably achievable. Dictated by Ayaz Rodríguez MD @ 02/18/2024 12:54:52 AM (Electronically Signed) Procedure Note Ayaz Rodrgíuez MD - 02/18/2024 For Patients: As a result of the Cures Act, medical imagingexams and procedure reports are released immediately into your electronicmedical record. You may view this report before your referring provider.If you have questions, please contact your health care provider. Indication: Swelling with large visible hematoma. Technique: CT lower extremity left with 97 cc Omnipaque 350 IV contrast. Comparison: None. Findings: Subtle nondisplaced fracture in the left femoral neck. No other osseousabnormality. A large intramuscular hematoma extends from the fracture intothe left thigh. The hematoma measures 22 x 8 cm. Generalized edema presentthroughout the left lower extremity. No convincing evidence for activebleeding. No other significant abnormality. Impression: Subtle left femoral neck nondisplaced fracture with an adjacent andinferior 22 x 8 cm hematoma in generalized edema throughout the leftleg. Please note that all CT scans at this facility use dose modulation,iterative reconstruction, and/or weight-based dosing when appropriate toreduce radiation dose to as low as reasonably achievable. Dictated by Ayaz Rodríguez MD @ 02/18/2024 12:54:52 AM (Electronically Signed) Alba Ha DO CT * XR CHEST 1 VIEW PORTABLE (02/17/2024 10:19 PM CDT) Anatomical Region Laterality Modality HEART, THORAX, CHEST Digital Rad iography 02/17/2024 10:2 8 PM CDT Impressions 02/17/2024 10:28 PM CDT 1. Mild interstitial edema. Otherwise no new focal consolidation. 2. Stable cardiomegaly. Dictated by Diaz Arora MD @ Feb 17 2024 10:28PM (Electronically Signed) [email or web address] Narrative 02/17/2024 10:28 PM CDT For Patients: ??As a result of the Cures Act, medical imaging exams and procedure reports are released immediately into your electronic medical record. ??You may view this report before your referring provider. ??If you have questions, please contact your health care provider. INDICATION: Weight gain. TECHNIQUE: Chest 1 view. COMPARISON: 10/18/2023. FINDINGS: Cardiovascular and mediastinum: Stable cardiomegaly. Median sternotomy and left- sided dual chamber cardiac pacer, unchanged. Lungs and pleural spaces: Central perihilar interstitial opacities, likely representing mild interstitial edema. Otherwise no new focal consolidation. No pleural effusions or pneumothorax. Bones and soft tissues: No significant findings. Procedure Note Diaz Arora MD - 02/17/2024 For Patients: As a result of the Cures Act, medical imagingexams and procedure reports are released immediately into your electronicmedical record. You may view this report before your referring provider.If you have questions, please contact your health care provider. INDICATION: Weight gain. TECHNIQUE: Chest 1 view. COMPARISON: 10/18/2023. FINDINGS: Cardiovascular and mediastinum: Stable cardiomegaly. Median sternotomy andleft- sided dual chamber cardiac pacer, unchanged. Lungs and pleural spaces: Central perihilar interstitial opacities, likelyrepresenting mild interstitial edema. Otherwise no new focalconsolidation. No pleural effusions or pneumothorax. Bones and soft tissues: No significant findings. IMPRESSION: 1. Mild interstitial edema. Otherwise no new focal consolidation. 2. Stable cardiomegaly. Dictated by Diaz Arora MD @ Feb 17 2024 10:28PM (Electronically Signed) [email or web address] Alba Ha DO GENERAL IMAGING * US VENOUS LOWER EXTREMITY LEFT PORTABLE (02/17/2024 9:09 PM CDT) Anatomical Region Laterality Modality LEGS, LEG L Ultrasound 02/17/2024 9:12 PM CDT Impressions 02/17/2024 9:12 PM CDT 1. No sign of deep venous thrombosis in the left lower extremity. 2. Left Schmitz cyst measuring 7.2 x 1.7 x 3.1 cm. Dictated by Diaz Arora MD @ 02/17/2024 9:12:13 PM (Electronically Signed) Narrative 02/17/2024 9:12 PM CDT For Patients: ??As a result of the Cures Act, medical imaging exams and procedure reports are released immediately into your electronic medical record. ??You may view this report before your referring provider. ??If you have questions, please contact your health care provider. INDICATION: Leg pain and swelling. TECHNIQUE: Ultrasound venous duplex lower left extremity. ??Compression venous exam was performed using coles-scale, color Doppler, and spectral Doppler analysis. COMPARISON: None. FINDINGS: Deep veins: Sonographic imaging demonstrates the left common femoral, deep femoral, superficial femoral, popliteal, posterior tibial, and the contralateral right common femoral veins to be fully compressible with normal color Doppler blood flow. Left peroneal vein not well visualized. Superficial veins: Greater saphenous vein is fully compressible. Left popliteal cyst measuring 7.2 x 1.7 x 3.1 cm. Procedure Note Diaz Arora MD - 02/17/2024 For Patients: As a result of the Cures Act, medical imagingexams and procedure reports are released immediately into your electronicmedical record. You may view this report before your referring provider.If you have questions, please contact your health care provider. INDICATION: Leg pain and swelling. TECHNIQUE: Ultrasound venous duplex lower left extremity. Compression venous examwas performed using coles-scale, color Doppler, and spectral Doppleranalysis. COMPARISON: None. FINDINGS: Deep veins: Sonographic imaging demonstrates the left common femoral, deepfemoral, superficial femoral, popliteal, posterior tibial, and thecontralateral right common femoral veins to be fully compressible withnormal color Doppler blood flow. Left peroneal vein not well visualized. Superficial veins: Greater saphenous vein is fully compressible. Left popliteal cyst measuring 7.2 x 1.7 x 3.1 cm. IMPRESSION: 1. No sign of deep venous thrombosis in the left lower extremity. 2. Left Schmitz cyst measuring 7.2 x 1.7 x 3.1 cm. Dictated by Diaz Arora MD @ 02/17/2024 9:12:13 PM (Electronically Signed) Alba Ha DO US * (ABNORMAL) PRO-BNP (02/17/2024 8:40 PM CDT) Only the most recent of3 resultswithin the time period is included. [facility] PRO-BNP 1,468(H) <125 pg/mL 02/17/2024 9:[address] [facility] Blood BLOOD SPECIMEN / Unknown Venipuncture / Unknown 02/17/2024 8:40 PM CDT 02/17/2024 8:45 PM CDT [facility] LABORATORY - 02/17/2024 9:27 PM CDT The following cut-points have been suggested for the use of proBNP for the diagnostic evaluation of heart failure (HF) in patient with acute dyspnea. Patients with eGFR >= 60 Diagnosis (rule in CHF) ? <50 Years Old ?450 pg/mL 50 - 75 Years Old ?900 pg/mL >75 Years Old ? 1800 pg/mL Exclusion (rule out CHF) Age Independent ?300 pg/mL A cutoff of 1200 pg/mL for patients with an eGFR <60 yields a diagnostic sensitivity of 89% and specificity of 72% for acute congestive heart failure. ? Alba Ha DO SEND OUTS [facility] [address] [place] [address], * (ABNORMAL) COMP METABOLIC PANEL (02/17/2024 8:40 PM CDT) SODIUM 135(L) 136 - 145 mmol/L 02/17/2024 9:23 PM CDT [facility] POTASSIUM 5.3(H) 3.5 - 5.1 mmol/L 02/17/2024 9:23 PM CDT [facility] CHLORIDE 99 98 - 107 mmol/L 02/17/2024 9:23 PM CDT [facility] CO2,TOTAL 25 22 - 29 mmol/L 02/17/2024 9:23 PM CDT [facility] ANION GAP 11 5 - 18 02/17/2024 9:23 PM CDT [facility] GLUCOSE 123(H) 70 - 99 mg/dL 02/17/2024 9:23 PM CDT [facility] CALCIUM 8.9 8.8 - 10.2 mg/dL 02/17/2024 9:23 PM CDT [facility] BUN 70(H) 8 - 23 mg/dL 02/17/2024 9:23 PM T [facility] CREATININE 1.69(H) 0.70 - 1.20 mg/dL 02/17/2024 9:23 PM T [facility] BUN/CREAT RATIO 41(H) 10 - 20 9:23 PM T [facility] eGFR 42(L) >90 mL/min/1.7 3m2 02/17/2024 9:23 PM T [facility] Comment:As of 2021, eG FR is calculated by the CKD-EPI creatinine equation without race adjustment. ??eGFR can be influenced by muscle mass, exercise, and diet. ??The reported eGFR is an estimation only and is only applicable if the renal function is stable. ALBUMIN 3.5(L) 4.0 - 4.9 g/dL 02/17/2024 9:23 PM CDT [facility] PROTEIN,TOTAL 6.2 6.0 - 8.0 g/dL 02/17/2024 9:23 PM CDT [facility] BILIRUBIN,TOTAL 0.9 0.0 - 1.2 mg/dL 02/17/2024 9:23 PM CDT [facility] ALK PHOSPHATASE 97 40 - 129 IU/L 02/17/2024 9:23 PM CDT [facility] ALT (SGPT) 24 10 - 50 IU/L 02/17/2024 9:23 PM CDT [facility] AST (SGOT) 42 10 - 50 IU/L 02/17/2024 9:23 PM CDT [facility] Blood BLOOD SPECIMEN / Unknown Venipuncture / Unknown 02/17/2024 8:40 PM CDT 02/17/2024 8:45 PM CDT Alba Ha DO CHEMISTRY [facility] [address] [place] [address], * (ABNORMAL) LIPID PANEL (01/07/2018 4:35 PM CDT) CHOLESTEROL,TOTAL 174 100 - 199 mg/dL 01/07/2018 6:28 PM CDT [facility] TRIGLYCERIDES 194(H) <150 mg/dL 01/07/2018 6:28 PM CDT [facility] HDL CHOLESTEROL 64 >40 mg/dL 8 6:28 PM CDT [facility] NON-HDL CHOLESTEROL 110 <145 mg/dl 01/07/2018 6:28 PM CDT [facility] CHOL/HDL RATIO 2.72 <4.50 01/07/2018 6:28 PM CDT [facility] LDL CHOLESTEROL 71 <=130 mg/dL 01/07/2018 6:28 PM CDT [facility] PROVIDER ORDERED STATUS RANDOM 01/07/2018 6:28 PM CDT [facility] Blood BLOOD SPECIMEN / Unknown Venipuncture / Unknown 01/07/2018 4:35 PM CDT 01/07/2018 4:39 PM CDT Aba Boo MD CHEMISTRY [facility] [address] [place] [address] from Last 3 Months or Most Recently Relevant to Health Maintenance Advance Directives * Full Code (Latest Code Status on File) Date Activated Date Inactivated Comments 02/17/2024 11:50 PM 02/21/2024 1:13 PM Question Answer Comments Code Status Discussion: Reviewed Preferences * Full Code Date Activated Date Inactivated Comments 10/30/2023 9:49 AM 10/30/2023 9:23 PM Question Answer Comments Code Status Discussion: Other * Full Code Date Activated Date Inactivated Comments 10/14/2023 5:16 PM 10/21/2023 7:35 PM Question Answer Comments Code Status Discussion: Other (specify in commen ts): * Full Code Date Activated Date Inactivated Comments 10/11/2023 9:01 PM 10/13/2023 4:25 PM Question Answer Comments Code Status Discussion: Reviewed Preferences * Full Code Date Activated Date Inactivated Comments 09/05/2023 9:49 AM 09/05/2023 1:14 PM Question Answer Comments Code Status Discussion: Other Care Teams Amusement Equipment Operator Relationship Specialty Start Date End Date Aba Boo MD [address] [place] [address] PCP - General Family Practice 11/18/19 Destin Johnston MD [address] [address] Cardiology - CHF Cardiovascular Disease 04/14/20 Nurses, Advanced Heart Failure [address] [address] Advanced Heart Failure/Transplant Card 04/14/20
--- OUTSIDE RECORDS SUMMARY | 2024-03-02 09:29 | XMS_ITS | Encounter Summary ---
Author Organization [facility] Address [address] [place] [address] Care Team Providers Care Receptionist Secretary Name Role Phone Clinician, Not Found MD Primary Care Provider Un available Reason for Referral * Therapies (Routine) - New Request Specialty Diagnoses / Procedures Referred By Contrashaun paz Referred To Contact Diagnoses Pain of left hip Conner Boudreaux DO [address] [place] [address] Referral ID Status Reason Start Date Expiration Date V isits Requested Visits Authorized [id number] New Request 02/12/2024 02/11/[phone] Scheduling Instructions Your clinician recommended an appointment with [facility] Services. You can quickly make your appointment online at [email or web address]. You can also call [phone] for help scheduling your appointment. We suggest you call your health insurance company about your coverage and benefits for this appointment. Question Answer Appointment Urgency? Non-Urgent Requested Services Evaluate and treat May use saline for irrigation or cleansing Yes RFV/Clin Data hamstring/gluteal strain dexamethasone use Yes May check glucose per protocol (see policy link below) or if patient has symptoms? Yes * Consult/Transfer Care (Routine) - New Request Specialty Diagnoses / Procedures Referred By Contac t Referred To Contact Diagnoses Left foot pain Conner Boudreaux DO [address] [place] [address] [address] Referral ID Status Reason Start Date Expiration Date V isits Requested Visits Authorized [id number] New Request 02/12/2024 05/13/2025 1 1 Scheduling Instructions Your clinician has recommended an appointment with [facility]. You can quickly make your appointment online at [email or web address]. You can also call [phone] for help scheduling your appointment. We suggest you call your health insurance company about your coverage and benefits for this appointment. Question Answer Appointment Urgency? Non-Urgent Reason for visit? hammer toe/foot pain * Procedure/Equipment (Routine) - Incomplete Specialty Diagnoses / Procedures Referred By Contac t Referred To Contact Diagnoses Pain of left hip Procedures XR Pelvis W Lt Lateral Hip Conner Boudreaux DO [address] [place] [address] [address] Referral ID Status Reason Start Date Expiration Date V isits Requested Visits Authorized [id number] Incomplete 02/12/2024 05/13/2025 1 1 Reason for Visit * Reason Comments LEG PAIN Back of buttocks jay n leg pain since last night Encounter Details Date Type Department Care Team (Late st Contact Info) Description 02/12/2024 6:50 PM CDT Office Visit [facility] [address] [place] [address] Conner Boudreaux DO [address] [facility] [address] [address] Pain of left hip (Primary Dx); Left foot pain Social History Tobacco Use Types Packs/Day Years Used Date Smoking Tobacco: Never Smokeless Tobacco: Never Sex and Gender Information Value Date Recorded Sex Assigned at Not on file Gender Identity Not on file Sexual Orientation Not on file documented as of this encounter Last Filed Vital Signs Vital Sign Reading Time Taken Comments Blood Pressure - - Pulse - - Temperature 36.6 ??C (97.8 ??F) 02/12/2024 6:54 PM CD T Respiratory Rate - - Oxygen Saturation - - Inhaled Oxygen Concentration - - Weight 133.8 kg (295 lb) 02/12/2024 6:54 PM CDT Height 200.7 cm (6' 7) 02/12/2024 6:54 PM CDT Body Mass Index 33.23 02/12/2024 6:54 PM CDT documented in this encounter Patient Instructions * Patient Instructions* Yari Addison - 02/12/2024 6:50 PM CDT Thank you for choosing [facility] for your health care visit today. Diagnosis: Hamstring/gluteal strain with cramping Plan: Follow Up: As needed if symptoms are not improving or worsen. Physical Therapy: Schedule your physical therapy appointment by calling [phone]. The following medications were prescribed at your visit : Orders Placed This Encounter Medications HYDROcodone-acetaminophen (NORCO) 5-325 MG tablet Sig: Take 1 Tablet by mouth every 8 hours as needed for Pain. Dispense: 12 Tablet Refill: 0 Medication Refill Requests: Prescription Refill Requests are not filled on Weekends or on Weekdays after 3:00PM For all medication refills: Request a refill using [employer] or contact your Pharmacy documented in this encounter Progress Notes * Conner Boudreaux DO - 02/12/2024 12:00 AM CDT NAME: MERRICK CENTENO CSN: [id number] CLINIC NOTE DATE OF SERVICE: 02/12/2024 : 1950 Merrick Centeno is a healthy-appearing 73-year-old gentleman, here for complaints of left buttock and hamstring pain. On February 11, 2024, he got up out of a chair and had sudden pain in his buttock and backof the thigh. He denies numbness, tingling, pain, or weakness radiating below the knee. The hamstring and buttock feel not yet up. It is hard to get up and sitting on the back of his leg makes it worse. PAST MEDICAL HISTORY: Reviewed in [facility]. REVIEW OF SYSTEMS: Temperature is afebrile. PHYSICAL EXAM: Patient is alert, oriented, in no acute distress. Gait is antalgic with a cane. Neurologic assessment of right and left lower extremities reveals normal strength and tone without clonus. He does have pitting edema bilaterally. Negative left straight leg raise test. Tenderness in the gluteal and proximal hamstring region with ropiness. IMAGING: AP pelvis left lateral hip x-ray series negative for fracture or subluxation. ASSESSMENT AND PLAN: Left gluteal and hamstring pain secondary to muscle strain. Diagnosis and treatment options discussed with the patient and his . He did have a similar episode a year ago, hadMRI of the left hip that showed stranding in the gluteus wild region consistent with muscle strain. I believe he is having recurrent symptoms. Recommend physical therapy. Arabi for pain relief, heat and massage. CONNER BOUDREAUX DO [facility]/AQS /[id number] documented in this encounter Plan of Treatment Scheduled Referrals Name Type Priority Associated Diagnoses Orde r Schedule Foot & Ankle/Podiatry Consult-Adult/Peds Referral Routine Left foot pain Ordered: 02/12/2024 Physical Therapy Referral Routine Pain of left hip Ordered: 02/12/2024 documented as of this encounter Results * XR Pelvis W [...] joints not significantlychanged. No fracture or subluxation. Conner BE[place] GD documented in this encounter Visit Diagnoses Diagnosis Pain of left hip- Primary Left foot pain Pain in limb Pain of left hip documented in this encounter Care Teams Receptionist Secretary Relationship Specialty Start Date End Date Clinician, Not Found, [place] [address] PCP - General 06/23/20 documented as of this encounter
--- OUTSIDE RECORDS SUMMARY | 2024-03-02 09:29 | XMS_ITS | Clinical Summary ---
Author Organization [facility] Address [address] [address] Care Team Providers Care Care Management Assistant Name Role Phone Clinician, Not Found MD Primary Care Provider Un available Source Comments You are receiving this document as you are listed as the primary care provider,follow-up provider, or the patient has been referred to you for consultation.This is in compliance with the Medicare and[facility] E[facility] Incentive [facility],which states Providers who transition their patient to another setting of careor provider of care or refers their patient to another provider of care shouldprovide summary care record for each transition of care or referral. [facility] Allergies No known active allergies Medications Medication Sig Dispensed Refills Start Date End Date Status spironolactone (ALDACTONE) 25 MG tabletIndications:H ypertension Take 0.5 Tablets (12.5 mg) by mouth daily. Indications: High Blood Pressure Disorder Active sacubitril-valsarta n (ENTRESTO) 97-103 MG tablet Take 1 Tablet by mouth two times a day. Active rOPINIRole (REQUIP) 1 MG tablet Take 1 Tablet (1 mg) by mouth daily at bedtime. Active sotalol (BETAPACE) 120 MG tabletIndications:A trial Fibrillation Take 1 Tablet (120 mg) by mouth two times a day. Indications: Atrial Fibrillation Active levothyroxine (SYNTHROID) 200 MCG tablet Take 1 Tablet (200 mcg) by mouth daily. 06/16/2020 Active HYDROcodone-acetami nophen (NORCO) 5-325 MG tablet Take 1-2 Tablets by mouth every 6 hours as needed for Pain. 28 Tablet 02/26/2023 Active Additional Information Patient not taking.Reported on 11/19/2023 rivaroxaban (XARELTO) 20 MG tablet Take 1 Tablet (20 mg) by mouth every evening with a meal. Active JARDIANCE 10 MG tablet Take 1 Tablet (10 mg) by mouth daily. Active furosemide (LASIX) 40 MG tablet Take 2 Tablets (80 mg) by mouth daily. 05/06/2023 Active gabapentin (NEURONTIN) 300 MG capsule TAKE 1 TO 2 CAPSULES BY MOUTH EVERY NIGHT 1 HOUR BEFORE BEDTIME FOR RESTLESS LEG SYNDROME 03/19/2023 Active traZODone (DESYREL) 100 MG tablet Take 2 Tablets (200 mg) by mouth. 05/06/2023 Active rosuvastatin (CRESTOR) 10 MG tablet Take 1 Tablet (10 mg) by mouth. 10/07/2023 Active HYDROcodone-acetami nophen (NORCO) 5-325 MG tabletIndications:P ain of left hip Take 1 Tablet by mouth every 8 hours as needed for Pain. 12 Tablet 02/12/2024 Active Active Problems Problem Noted Date Diagnosed Date Need for vaccination 10/18/2023 Positive blood culture 10/18/2023 Streptococcal sepsis 10/18/2023 Atrial fibrillation, persistent 10/14/2023 Atrial tachycardia 10/14/2023 Hypotension 10/11/2023 Primary cardiomyopathy 06/16/2020 Idiopathic hypotension 06/16/2020 Status post total right knee replacement 020 Overview: By Dr. Murrieta at [facility]. 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 08/04/2019 History of aortic root repair 07/08/2019 Hypothyroid 12/14/2018 Hypertension 12/03/2015 S/P Maze operation for atrial fibrillation 10/15 Encounters Date Type Department Care Team Description 02/12/2024 7:10 PM CDT Ancillary Procedure [facility] [address] [address] [address] [address] [place] [address] Sanjay Leach, DO Pain of left hip 02/12/2024 6:50 PM CDT Office Visit [facility] [address] [place] [address] Sanjay Leach, DO Pain of left hip (Primary Dx); Left foot pain 12/30/2023 Telephone [facility] [address] [place], [place] [phone] Zakia Carrillo, OIL AND GAS RECRUITER, VP ANALYTICS Questions from Last 3 Months Social History Tobacco Use Types Packs/Day Years Used Date Smoking Tobacco: Never Smokeless Tobacco: Never Sex and Gender Information Value Date Recorded Sex Assigned at Not on file Gender Identity Not on file Sexual Orientation Not on file Last Filed Vital Signs Vital Sign Reading Time Taken Comments Blood Pressure 94/48 06/18/2023 9:54 AM CDT Pulse 65 06/18/2023 9:54 AM CDT Temperature 36.6 ??C (97.8 ??F) 02/12/2024 6:54 PM CD T Respiratory Rate 18 06/18/2023 9:05 AM CDT Oxygen Saturation 93% 06/18/2023 9:54 AM CDT Inhaled Oxygen Concentration - - Weight 133.8 kg (295 lb) 02/12/2024 6:54 PM CDT Height 200.7 cm (6' 7) 02/12/2024 6:54 PM CDT Body Mass Index 33.23 02/12/2024 6:54 PM CDT Plan of Treatment Health Maintenance Due Date Last Done Comments Colon Cancer Screening Plan Due 1950 Hep C Screening (Preventive Services) 1950 Medicare Annual Wellness Visit 1950 Cholesterol 1985 Zoster/Shingles (3 of 3) 04/28/2023 023, 06/24/2013 COVID-19 Vaccine (4 - 2022-2 4 season) 2023 06/27/2021, 12/10/2020, 11/19/2020 Influenza (Season Ended) 2024 021, 07/09/2019, 06/24/2013 DTaP/Tdap/Td (2 - Tdap) 05/14/2032 05/14/2022 Pneumococcal 65+ Yrs Completed 09/25/2023, 11/28/2015 HepA Aged Out No longer eligi ble based on patient's age to complete this topic HepB Aged Out No longer eligi ble based on patient's age to complete this topic Hib Aged Out No longer eligi ble based on patient's age to complete this topic IPV (Polio) Aged Out No longer eligi ble based on patient's age to complete this topic MCV4 Aged Out No longer eligi ble based on patient's age to complete this topic Medical Devices Implanted Type Area Television Servicer Device Identifier Shelf Expiration Date Model / Serial / Lot Mohan Bone Biomet R 1x40 - [id number] Implanted:Qty: 2 on 06/15/2020 by Sanjay Murrieta MD at [facility] DEVICE Right: [employer] 07/29/2024 [id number] / / [id number] Patella All Poly Ply 41mm - [id number] Implanted:Qty: 1 on 06/15/2020 by Sanjay Murrieta MD at [facility] DEVICE Right: [employer] 06/28/2026 [id number] / / [id number] Comp Str Hyb St 14x+30 - [id number] Implanted:Qty: 1 on 06/15/2020 by Sanjay Murrieta MD at [facility] DEVICE Right: [employer] 11/26/2029 [id number] / / [id number] Stem Tib 5deg Szh Rt - [id number] Implanted:Qty: 1 on 06/15/2020 by Sanjay Murrieta MD at [facility] DEVICE Right: [employer] 01/26/2029 [id number] / / [id number] Comp Fem Ps Ccr Ps Std Sz12 Rt - [id number] Implanted:Qty: 1 on 06/15/2020 by Sanjay Murrieta MD at [facility] DEVICE Right: [employer] 06/28/2029 [id number] / / [id number] Asf Ps Ve 10mm 1012 Gh Rt - [id number] Implanted:Qty: 1 on 06/15/2020 by Sanjay Murrieta MD at [facility] DEVICE Right: [employer] 04/28/2021 [id number] / / [id number] Procedures Procedure Name Priority Date/Time Associated Diagnosis Comments XR PELVIS W LT LATERAL HIP Routine 02/12/2024 7:20 PM CDT Pain of left hip from Last 3 Months Results * XR Pelvis W Lt Lateral [...] No fracture or subluxation. Sanjay BEACH GD from Last 3 Months Advance Directives * Full Code (Latest Code Status on File) Date Activated Date Inactivated Comments 06/15/2020 2:08 PM 06/17/2020 2:45 PM Care Teams Care Management Assistant Relationship Specialty Start Date End Date Clinician, Not Found, [place] [address] PCP - General 06/23/20
== END 2024-03-02 09:16 | disposition home or self-care (01) ==
LOC: FBOREF 09:17
PROVIDERS: PCP Family Medicine; Visit Provider Family Medicine
DX: I10 Essential (primary) hypertension (principal)
CPT/HCPCS: 80048; 85025

== ENCOUNTER 2024-03-24 12:48 | Outpatient (CLI) | payer MEDICARE, BC, SELFPAY ==
--- OUTSIDE RECORDS SUMMARY | 2024-03-24 12:54 | XMS_ITS | Clinical Summary ---
Author Organization [facility] Address [address] [address] Care Team Providers Care Snowblower Mechanic Name Role Phone Clinician, Not Found MD Primary Care Provider Un available Source Comments You are receiving this document as you are listed as the primary care provider,follow-up provider, or the patient has been referred to you for consultation.This is in compliance with the Medicare and[facility]ive [facility],which states Providers who transition their patient to another setting of careor provider of care or refers their patient to another provider of care shouldprovide summary care record for each transition of care or referral. [employer] Allergies No known active allergies Medications Medication [...] replacement 020 Overview: By Dr. Murrieta at [facility]. Ascending aorta dilation 06/15/2020 Overview: -09/09/11: S/p [...] 7:10 PM CDT Ancillary Procedure [address] [address] [address] [address] [address] [place] [address] Sanjay Leach, DO Pain of left hip 02/12/2024 6:50 PM CDT Office Visit [facility] [address] [place] [address] Sanjay Leach, DO Pain of left hip (Primary Dx); Left foot pain 12/30/2023 Telephone [facility] [address] [place], [place] [phone] Zakia Carrillo, CODE ENFORCEMENT OFFICER, FISH HATCHERY INSPECTOR Questions from Last 3 Months Social History [...] this topic Medical Devices Implanted Type Area Workers' Compensation Hearings Officer Device Identifier Shelf Expiration Date Model / Serial / Lot Mohan Bone Biomet R 1x40 - [id number] Implanted:Qty: 2 on 06/15/2020 by Sanjay Murrieta MD at [facility] DEVICE Right: [employer] 07/29/2024 [id number] / / [id number] Patella All Poly Ply 41mm - [id number] Implanted:Qty: 1 on 06/15/2020 by Sanjay Murrieta MD at [facility] DEVICE Right: [employer] 06/28/2026 [id number] / / [id number] Comp Str Hyb St 14x+30 - [id number] Implanted:Qty: 1 on 06/15/2020 by Sanjay Murrieta MD at [facility] DEVICE Right: [employer] 11/26/2029 [id number] / / [id number] Stem Tib 5deg Szh Rt - [id number] Implanted:Qty: 1 on 06/15/2020 by Sanjay Murrieta MD at [facility] DEVICE Right: [employer] 01/26/2029 [id number] / / [id number] Comp Fem Ps Ccr Ps Std Sz12 Rt - [id number] Implanted:Qty: 1 on 06/15/2020 by Sanjay Murrieta MD at [facility] DEVICE Right: [employer] 06/28/2029 [id number] / / [id number] Asf Ps Ve 10mm 1012 Gh Rt - [id number] Implanted:Qty: 1 on 06/15/2020 by Sanjay Murrieta MD at [facility] DEVICE Right: [employer] 04/28/2021 [id number] / / [id number] Procedures Procedure Name Priority Date/Time Associated Diagnosis [...] 2:08 PM 06/17/2020 2:45 PM Care Teams Snowblower Mechanic Relationship Specialty Start Date End Date Clinician, Not Found, [place] [address] PCP - General 06/23/20
--- OUTSIDE RECORDS SUMMARY | 2024-03-24 12:54 | XMS_ITS | Encounter Summary ---
Author Organization [facility] Address [address] [address] Care Team Providers Care Unemployment Inspector Name Role Phone Clinician, Not Found MD Primary Care Provider Un available Reason for Visit * Procedure/Equipment (Routine) - Incomplete Specialty Diagnoses / Procedures Referred By Contac t Referred To Contact Diagnoses Pain of left hip Procedures XR Pelvis W Lt Lateral Hip Sanjay Leach DO [address] [facility] [place] [address] Referral ID Status Reason Start Date Expiration Date V isits Requested Visits Authorized [id number] Incomplete 02/12/2024 05/13/2025 1 1 Encounter Details Date Type Department Care Team (Late st Contact Info) Description 02/12/2024 7:10 PM CDT Ancillary Procedure [facility] [address] Radiology [address] [place] [phone] Sanjay Leach DO [address] [facility] [place] [address] Pain of left hip Social History Tobacco [...] hip documented in this encounter Care Teams Unemployment Inspector Relationship Specialty Start Date End Date Clinician, Not Found, [place] [address] PCP - General 06/23/20 documented as of this encounter
--- OUTSIDE RECORDS SUMMARY | 2024-03-24 12:54 | XMS_ITS | Clinical Summary ---
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 CK,TOTAL 133 39 - 308 IU/L 03/17/2024 9:43 PM CDT [facility] Blood BLOOD SPECIMEN / Unknown Venipuncture / Unknown 03/17/2024 4:18 AM CDT 03/17/2024 4:35 AM CDT Shane Ramires CHEMISTRY Performing Organization Address [facility] Co de Phone Number [facility] [address] [place] [address], * [facility]UM IONIZED HOSPITAL DRAW ONLY (03/17/2024 4:18 AM CDT) Only the most recent of4 resultswithin the time period is included. CALCIUM,IONIZE D 1.18 1.15 - 1.27 mmol/L 03/17/2024 4:41 AM CDT [facility] Blood BLOOD SPECIMEN / Unknown Venipuncture / Unknown 03/17/2024 4:18 AM CDT 03/17/2024 4:35 AM CDT Estrella Flores MD CHEMISTRY [facility] [address] [place] [address], * SCAN-CARDIAC STRIP (03/16/2024 7:21 PM CDT) Scanner OTHER * (ABNORMAL) URINALYSIS MICROSCOPIC (03/16/2024 4:32 PM CDT) RBC 0-2 0-2, None Seen /HPF 03/16/2024 4:49 PM CDT [facility] WBC 0-2 0-2, 3-5, None Seen /HPF 03/16/2024 4:49 PM CDT [facility] BACTERIA None Seen None Seen, Rare, Few Bacteria/ HPF 03/16/2024 4:49 PM CDT [facility] EPITHELIAL CELLS None Seen None Seen, Few Epi/HPF 03/16/2024 4:49 PM CDT [facility] HYALINE CASTS 11-25(A) 0-2, 3-5 /LPF 03/16/2024 4:49 PM CDT [facility] Urine URINE SPECIMEN / Unknown Non-Blood / Unknown 03/16/2024 4:32 PM CDT 03/16/2024 4:40 PM CDT Lucio ARMAS URINE [facility] [address] [place] [address], [place] * (ABNORMAL) UA W/ SEDIMENT EXAM REFLEXED PER CRITERIA (03/16/2024 4:32 PM CDT) COLOR Yellow Yellow Color 03/16/2024 4:49 PM CDT [facility] CLARITY Clear Clear Clarity 03/16/2024 4:49 PM CDT [facility] SPECIFIC GRAVITY,URINE 1.015 1.010, 1.015, 1.020, 1.025 03/16/2024 4:49 PM CDT [facility] PH,URINE 5.0(A) 6.0, 7.0, 8.0, 5.5, 6.5, 7.5, 8.5 03/16/2024 4:49 PM CDT [facility] UROBILINOGEN, QUALITATIVE Normal Normal EU/dl 03/16/2024 4:49 PM CDT [facility] PROTEIN, URINE Trace(A) Negative mg/dL 03/16/2024 4:49 PM CDT [facility] GLUCOSE, URINE >=1000(A) Negative mg/dL 03/16/2024 4:49 PM CDT [facility] KETONES,URINE Negative Negative mg/dL 03/16/2024 4:49 PM CDT [facility] BILIRUBIN,URI NE Negative Negative 03/16/2024 4:49 PM CDT [facility] OCCULT BLOOD,URINE Negative Negative 03/16/2024 4:49 PM CDT [facility] NITRITE Negative Negative 03/16/2024 4:49 PM CDT [facility] LEUKOCYTE ESTERASE Negative Negative 03/16/2024 4:49 PM CDT [facility] Urine URINE SPECIMEN / Unknown Non-Blood / Unknown 03/16/2024 4:32 PM CDT 03/16/2024 4:40 PM CDT Lucio ARMAS URINE [facility] [address] [place] [address], * PROCALCITONIN (03/16/2024 4:08 PM CDT) PROCALCITONIN 0.04 ng/ml 03/16/2024 4:59 PM CDT [facility] Blood BLOOD SPECIMEN / Unknown Butterfly / Unknown 03/16/2024 4:08 PM CDT 03/16/2024 4:18 PM CDT Narrative [facility] - 03/16/2024 4:59 PM CDT Procalcitonin for initial assessment of Lower Respiratory Tract Infection: Results Interpretation <0.10 ng/mL Antibiotic therapy strongly discoraged. ??Indicates absent of bacterial infection. * 0.10 - 0.25 ng/mL Antibiotic therapy discouraged. ??Bacterial infection unlikely. * 0.26 - 0.50 ng/mL Antibiotic therapy encouraged. ??Bacterial infection possible. >0.50 ng/mL Antibiotic therapy strongly encouraged. ??Suggestive of presence of bacterial infection. *Antibiotic therapy should be considered regardless of PCT result if the patient is clinically unstable, is at high risk for adverse outcome, has strong evidence of bacterial pathogen, or the clinical context indicates antibiotic therapy is warranted. ??If antibiotics are withheld, reassess if symptoms persist/worsen and/or repeat PCT measurement within 6-24 hours. ? In order to assess treatment success and to support a decision to discontinue antibiotic therapy, follow up samples should be tested once every 1-2 days, based upon physician discretion taking into account patient's evolution and progress. Procalcitonin for initial assessment of severe sepsis risk: Results Interpretation <0.5 ng/ml A PCT level below 0.5 ng/ml on the first day of ICU admission is associated with a low risk for progression to severe sepsis and/or septic shock. > 2.0 ng/mL A PCT level above 2.0 ng/mL on the first day of ICU admission is associated with a high risk for progression to severe sepsis and/or septic shock. Note: Concentrations < 0.5 ng/mL do not exclude an infection, on account of localized infections (without systemic signs) which can be associated with such low concentrations, or a systemic infection in its initial stages(< 6 hours). Furthermore, increased procalcitonin can occur without infection. PCT concentrations between 0.5 and 2.0 ng/mL should be interpreted taking into account the patient's history. It is recommended to retest PCT within 6-24 hours if any concentrations < 2 ng/mL are obtained. Lucio ARMAS SEND OUTS Performing Organization Address [facility] de Phone Number [facility] [address] [place] [address], * BLOOD CULTURE (03/16/2024 4:08 PM CDT) Only the most recent of2 resultswithin the time period is included. CULTURE No Growth. 03/20/2024 7:10 PM CDT [facility] Blood BLOOD SPECIMEN / Unknown Butterfly / Unknown 03/16/2024 4:08 PM CDT 03/16/2024 4:18 PM CDT Narrative [facility] - 03/20/2024 7:10 PM CDT Low volume blood culture received; possible false negative culture. Lucio ARMAS MICROBIOLOGY Performing Organization Address [facility] de Phone Number [facility] [address] [place] [address], * ICD ANALYSIS DUAL WITHOUT REPROGRAM (03/16/2024 3:32 PM CDT) Narrative Marquis Santana MD - 03/16/2024 3:32 PM CDT Cyndi Arnold RN ? 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 All HV pathways have been programmed B>AX. Location of evaluation: [facility] - [id number] Reason for evaluation: Provider Request MEASUREMENTS Atrial Sensing - P wave: 0.4 mV - AF Atrial Capture: DEBORAH - AF Atrial Lead Impedance: 399 ohms Ventricular Sensing - R wave: 7.1 mV RV Capture: 0.75 V @ 0.4 ms Ventricular Pacing Lead Impedance: 323 ohms ?? Ventricular Shock Impedance: 68 ohms Underlying rhythm: Atrial fibrillation with ventricular response ~75 - 125 bpm DIAGNOSTIC DATA - since 10/30/2023 Atrial paced - 15% ??Ventricular paced - 0.1% Atrial episodes: 2 AF episodes detected for 2.3% total burden (total time of 3 days). Per logbook appears patient has been in AF since 03/13/2024 at 10:36 AM. Ventricular rates per histogram below. Frederick is active on medication list. ? Associated symptoms: None reported Ventricular episodes: None ? Associated symptoms: n/a Histogram: Appropriate heart rate distribution when in sinus. Battery voltage: 2.94 V ??Estimated battery longevity 3.2 years Last capacitor reform: 01/11/2024 ??Charge time: 4.1 seconds ?? FINAL VENTRICULAR TACHYCARDIA PARAMETERS Rate (bpm): 150 - 188 Therapy: Monitor only ? NID: 36 Rate (bpm): ? >188 Therapy: ATP during charge, 35 J x 6 ? NID: 30/40 FINAL BRADYCARDIA PARAMETERS Mode: AAI <=> DDD ??Lower rate: 60 bpm ??Upper rate: 130/130 bpm ?? AV Delay: 180/150 ms ?? Mode Switch: 150 bpm ??Rate Response: Mode switch only (Med/Low, 3/3) Atrial - Amplitude: Adaptive 1.25 V ??Pulse width: 0.4 ms ?? Sensitivity: 0.15 mV ??Refractory: Auto, 250 ms ??Polarity: Bipolar Ventricular - Amplitude: Adaptive 1.75 V ??Pulse width: 0.4 ms ?? Sensitivity: 0.3 mV ??Polarity: Bipolar Changes made: Increased RA sensitivity. Conclusion: Normal ICD function. Per logbook appears patient has been in AF since 03/13/2024 at 10:36 AM. Ventricular rates per histogram above. Follow up: 3 month [employer] remote provided. Routine follow up: Every 3 - 4 months via [employer] remote with annual [place]ck[place] or clinic with Dr. Santana each February. Cyndi Arnold, RN Nurse Clinician II [facility] Pacemaker/ICD Clinic Marquis Santana MD CARDIAC SERVICES ORD * EXTRA TUBE LIGHT GREEN (03/16/2024 1:23 PM CDT) Blood BLOOD SPECIMEN / Unknown Non-Lab Venipuncture / Unknown 03/16/2024 1:23 PM CDT 03/16/2024 1:33 PM CDT Estrella Flores MD LABORATORY [facility] [address] [place] [address], * (ABNORMAL) BLOOD GAS,VENOUS (03/16/2024 1:23 PM CDT) PH, VENOUS 7.31(L) 7.32 - 7.43 03/16/2024 1:36 PM CDT [facility] PCO2, VENOUS 68(H) 41 - 51 mmHg 03/16/2024 1:36 PM CDT [facility] PO2, VENOUS 63(H) 35 - 40 mmHg 03/16/2024 1:36 PM CDT [facility] HCO3,VENOUS 34(H) 22 - 29 mmol/L 03/16/2024 1:36 PM CDT [facility] BASE EXCESS, VENOUS, POCT 5.6(H) -2.0 - 3.0 03/16/2024 1:36 PM CDT [facility] O2 SATURATION, VENOUS 93(H) 70 - 75 % 03/16/2024 1:36 PM CDT [facility] PATIENT TEMPERATURE 37.0 Degrees C 03/16/2024 1:36 PM CDT [facility] Blood VENOUS BLOOD SPECIMEN / Unknown Butterfly / Unknown 03/16/2024 1:23 PM CDT 03/16/2024 1:31 PM CDT Estrella Flores MD CHEMISTRY Performing Organization Address City/[facility]/ZIP Co de Phone Number [facility] [address] [place] [address], * LACTATE VENOUS (03/16/2024 1:22 PM CDT) Only the most recent of3 resultswithin the time period is included. LACTATE,VENOUS 0.8 0.5 - 2.0 mmol/L 03/16/2024 2:38 PM CDT [facility] Blood BLOOD SPECIMEN / Unknown Butterfly / Unknown 03/16/2024 1:22 PM CDT 03/16/2024 1:31 PM CDT Lucio ARMAS CHEMISTRY Performing Organization Address City/[facility] Co de Phone Number [facility] [address] [place] [address], * (ABNORMAL) HEMOGLOBIN (03/16/2024 1:22 PM CDT) Only the most recent of8 resultswithin the time period is included. HEMOGLOBIN 11.1(L) 13.5 - 17.5 g/dL 03/16/2024 1:39 PM CDT [facility] MCV 101(H) 80 - 100 fL 03/16/2024 1:39 PM CDT [facility] Blood BLOOD SPECIMEN / Unknown Butterfly / Unknown 03/16/2024 1:22 PM CDT 03/16/2024 1:31 PM CDT Lucio ARMAS HEMATOLOGY Performing Organization Address [facility]/ZIP Co de Phone Number [facility] [address] [place] [address], * (ABNORMAL) FACTOR 10 CHROMOGENIC (03/16/2024 1:22 PM CDT) FACTOR 10 CHROMOGENIC 41(L) 65 - 130 % 03/16/2024 1:46 PM CDT [facility] Blood BLOOD SPECIMEN / Unknown Butterfly / Unknown 03/16/2024 1:22 PM CDT 03/16/2024 1:31 PM CDT Narrative [facility] - 03/16/2024 1:46 PM CDT Therapeutic Range 20-40% Lucio ARMAS SEND OUTS Performing Organization Address [facility] de Phone Number [facility] [address] [place] [address], * CORTISOL TOTAL (03/16/2024 10:29 AM CDT) CORTISOL,TOTAL 15.0 ug/dL 03/16/2024 1:29 PM CDT [facility] Blood BLOOD SPECIMEN / Unknown Non-Lab Venipuncture / Unknown 03/16/2024 10:29 AM CDT 03/16/2024 10:35 AM CDT Narrative [facility] - 03/16/2024 1:29 PM CDT Cortisol ?Morning Hours ?6:00 ??AM - 10:00 AM ?(4.8-19.5 ug/dL) Cortisol ?Afternoon Hours ??4:00 ??PM - ??8:00 PM ?(2.5-11.9 ug/dL) ? Biotin supplements may cause clinically significant interference for this test assay. ??If interference is suspected, it is strongly recommended that biotin is discontinued for at least one week prior to retesting. Estrella Yoni Flores MD CHEMISTRY [facility] [address] [place] [address], * ECHO TTE LIMITED W CONTRAST W COLOR W DOPPLER (03/16/2024 10:23 AM CDT) Only the most recent of2 resultswithin the time period is included. AORTIC VALVE MEAN PG 7 mmHg EJECTION FRACTION 50 - 55% Anatomical Region Laterality Modality Ultrasound 03/16/2024 9:42 AM CDT Narrative 03/16/2024 11:06 AM CDT ECHOCARDIOGRAM RAIN PETTY ? Accession#: ?? [id number] : ?1950 73 years Study Date: ?? 03/16/2024 9:42:01 AM Gender: M ?BP: ? 84/55 mmHg Height: 137.00 cm ?BSA: ?2.42 m? ? ? Weight: 200.00 kg ?Tech: ? OLL ? Referring MD: ESTRELLA FLORES Site: ? [facility] Reading Location: [facility] Patient Location: Inpatient. Procedure: Limited Echo w/ Contrast, Limited Spectral Doppler, Color Doppler and Limited 2D. Indication for study: Shock after trauma Cardiac Rhythm: Atrial fibrillation.Study quality: Technically limited. Final Impressions: Limited Echocardiogram performed 1. Technically limited exam. 2. Normal LV size, normal wall thickness, Challenging images but overall low normal global systolic function with an estimated EF of 50 - 55%. 3. The cardiac apex appears akinetic. 4. Right ventricular cavity size is normal, global systolic RV function is normal. 5. The inferior vena cava is dilated, respiratory size variation less than 50%. 6. No pericardial effusion. Chamber Sizes and Function Normal left ventricular size, normal wall thickness, low normal global systolic function with an estimated EF of 50 - 55%. Challenging images. The cardiac apex appears akinetic. Left atrial size is not well visualized. Right ventricular cavity size is normal, global systolic RV function is normal. The pulmonary artery is not well visualized. The sinus of Valsalva is not well visualized. The ascending aorta is not well visualized. Valves, RV Pressures and Diastolic Function The aortic valve is not well visualized , no stenosis and no regurgitation. The tricuspid valve is not well visualized. Tricuspid regurgitation is trace. The pulmonic valve is not well visualized. No Doppler performed for pulmonic regurgitation is present on color flow. Masses, Effusion, Shunts There is no pericardial effusion. The inferior vena cava is dilated, respiratory size variation less than 50%. MEASUREMENTS AND CALCULATIONS 2-D Measurements and LV Function: HR 104 bpm Aortic Valve: Vmax ? 1.8 m/s Max PG ?13 mmHg VTI ?0.30 m ??Mean PG ?? 7 mmHg LVOT V max 1.0 m/s Dim Index 0.57 LVOT VTI ?? 0.17 m Contrast documentation: 2 ml diluted Definity, lot #[id number], [facility]# [id number] was administered peripherally to enhance visualization of all left ventricular segments. . This study was interpreted by an [facility] accredited facility. ??Final ?? Procedure Note Leonel Montanez MD - 03/16/2024 ECHOCARDIOGRAM RAIN PETTY : 1950 73 years Study Date: 03/16/2024 9:42:01 AM Gender: M BP: 84/55 mmHg Height: 137.00 cm BSA: 2.42 m? ? ? Weight: 200.00 kg Tech: ANGIE Referring MD: ESTRELLA FLORES Site: [facility] Reading Location: [facility] Patient Location: Inpatient. Procedure: Limited Echo w/ Contrast, Limited Spectral Doppler, ColorDoppler and Limited 2D. Indication for study: Shock after trauma Cardiac Rhythm: Atrial fibrillation.Study quality: Technically limited. Final Impressions: Limited Echocardiogram performed 1. Technically limited exam. 2. Normal LV size, normal wall thickness, Challenging images but overalllow normal global systolic function with an estimated EF of 50 - 55%. 3. The cardiac apex appears akinetic. 4. Right ventricular cavity size is normal, global systolic RV functionis normal. 5. The inferior vena cava is dilated, respiratory size variation lessthan 50%. 6. No pericardial effusion. Chamber Sizes and Function Normal left ventricular size, normal wall thickness, low normal globalsystolic function with an estimated EF of 50 - 55%. Challenging images.The cardiac apex appears akinetic. Left atrial size is not wellvisualized. Right ventricular cavity size is normal, global systolic RVfunction is normal. The pulmonary artery is not well visualized. The sinusof Valsalva is not well visualized. The ascending aorta is not wellvisualized. Valves, RV Pressures and Diastolic Function The aortic valve is not well visualized , no stenosis and noregurgitation. The tricuspid valve is not well visualized. Tricuspidregurgitation is trace. The pulmonic valve is not well visualized. NoDoppler performed for pulmonic regurgitation is present on color flow. Masses, Effusion, Shunts There is no pericardial effusion. The inferior vena cava is dilated,respiratory size variation less than 50%. MEASUREMENTS AND CALCULATIONS 2-D Measurements and LV Function: HR 104 bpm Aortic Valve: Vmax 1.8 m/s Max PG 13 mmHg VTI 0.30 m Mean PG 7 mmHg LVOT V max 1.0 m/s Dim Index 0.57 LVOT VTI 0.17 m Contrast documentation: 2 ml diluted Definity, lot #[id number], [facility]#[id number] was administered peripherally to enhance visualization of allleft ventricular segments. . This study was interpreted by an [facility] accredited facility. Final Estrella Flores MD ECHO ORD * SCAN-CARDIAC STRIP (03/16/2024 6:57 AM CDT) Scanner OTHER * SCAN-CARDIAC STRIP (03/16/2024 1:17 AM CDT) Scanner OTHER * BEDSIDE US STUDY ARCHIVE (03/16/2024 1:03 AM CDT) Narrative Varghese Mckenna MD - 03/16/2024 1:03 AM CDT Varghese Mckenna MD ? 03/16/2024 ??1:05 AM BEDSIDE US STUDY ARCHIVE Performed by: Varghese Mckenna MD Authorized by: Varghese Mckenna MD ?? Date/Time: ??03/16/2024 1:03 AM Indication/Diagnosis: shock/hypotension ?? Left Ventricle: ??LV Function: mildly reduced ?LV Size: increased ?LV Wall Thickness: normal ?? Right Ventricle: ??RV Size: normal ?? Inferior Vena Cava: ??IVC Size: > 2.1 cm ??IVC Size: ??3 ??IVC Collapse: <50% collapse ?? Pericardial Effusion: ??Pericardial Effusion Size: none ?? Comments: ??Technically difficult study due to poor windows. ??Was not able to adequately delineate robledo of the ventricles. ??Grossly appearing normal biventricular size Varghese Mckenna MD PROCEDURE ORD * (ABNORMAL) TROPONIN T (HS) ONE TIME (03/15/2024 7:54 PM CDT) TROPONIN T HS 27(H) 6-15 ng/L ng/L 03/15/2024 8:14 PM CDT [facility] Blood BLOOD SPECIMEN / Unknown Venipuncture / Unknown 03/15/2024 7:54 PM CDT 03/15/2024 7:56 PM CDT Janina Valero MD CHEMISTRY [facility] [address] [place] [address] * EKG 12 LEAD (03/15/2024 6:44 PM CDT) Interpretation Atrial fibrillation with premature ventricular or aberrantly conducted complexes Low voltage QRS Cannot rule out Anterior infarct (cited on or before 12-OCT-2023) Abnormal ECG When compared with ECG of 04-NOV-2023 12:51, Atrial fibrillation has replaced Sinus rhythm BEYOND NOW Ventricular Rate 89 BPM BEYOND NOW Atrial Rate 81 BPM BEYOND NOW P-R Interval ms BEYOND NOW QRS Duration 106 ms BEYOND NOW QT 396 ms BEYOND NOW QTc 481 ms BEYOND NOW P Boyce degrees BEYOND NOW R Boyce 1 degrees BEYOND NOW T Boyce 63 degrees BEYOND NOW 03/15/2024 6:44 PM CDT 03/16/2024 11:14 AM CDT Janina Valero MD EKG ORD BEYOND NOW [place], [place] * CT CERVICAL SPINE WO (03/15/2024 2:10 PM CDT) Anatomical Region Laterality Modality CERVICAL SPINE, NECK, Spine Comp uted Tomography 03/15/2024 2:35 PM CDT Narrative 03/15/2024 2:35 PM CDT For Patients: ??As a result of the Century Cures Act, medical imaging exams and procedure reports are released immediately into your electronic medical record. ??You may view this report before your referring provider. ??If you have questions, please contact your health care provider. Indication: Trauma Technique: Noncontrast axial CT of the cervical spine with coronal and sagittal reformats. Comparison: Same-day CT head and CT chest Findings: Mild cervical dextroconvex curvature, with preserved lordosis. Trace degenerative anterolisthesis at C3-4. Mild chronic anterior wedge configuration of C6-T1. No acute fracture identified. Suggested deformity of the right 1st rib is favored to represent motion artifact. Scattered spondylosis, with left asymmetric facet arthropathy in the upper cervical spine, and right asymmetric endplate degeneration at C7-T1. No evidence of significant spinal canal stenosis. Multilevel right-sided neural foraminal narrowing, at C4-5, C5-6, C6-7, and C7-T1. Regional osseous structures are detailed in a separate report. Impression: 1. No evidence of acute fracture or traumatic malalignment in the cervical spine. 2. Cervical spondylosis as detailed. Please note that all CT scans at this facility use dose modulation, iterative reconstruction, and/or weight-based dosing when appropriate to reduce radiation dose to as low as reasonably achievable. Dictated by Gosia Starks MD @ 03/15/2024 2:35:04 PM (Electronically Signed) Procedure Note Gosia Starks, DO - 03/15/2024 For Patients: As a result of the Cures Act, medical imagingexams and procedure reports are released immediately into your electronicmedical record. You may view this report before your referring provider.If you have questions, please contact your health care provider. Indication: Trauma Technique: Noncontrast axial CT of the cervical spine with coronal and sagittalreformats. Comparison: Same-day CT head and CT chest Findings: Mild cervical dextroconvex curvature, with preserved lordosis. Tracedegenerative anterolisthesis at C3-4. Mild chronic anterior wedgeconfiguration of C6-T1. No acute fracture identified. Suggested deformityof the right 1st rib is favored to represent motion artifact. Scattered spondylosis, with left asymmetric facet arthropathy in the uppercervical spine, and right asymmetric endplate degeneration at C7-T1. Noevidence of significant spinal canal stenosis. Multilevel right-sidedneural foraminal narrowing, at C4- 5, C5-6, C6-7, and C7-T1. Regional osseous structures are detailed in a separate report. Impression: 1. No evidence of acute fracture or traumatic malalignment in the cervicalspine. 2. Cervical spondylosis as detailed. Please note that all CT scans at this facility use dose modulation,iterative reconstruction, and/or weight-based dosing when appropriate toreduce radiation dose to as low as reasonably achievable. Dictated by Gosia Starks MD @ 03/15/2024 2:35:04 PM (Electronically Signed) Janina Valero MD CT * CT HEAD BRAIN WO (03/15/2024 2:09 PM CDT) Anatomical Region Laterality Modality HEAD, BRAIN Computed Tomogra phy 03/15/2024 2:26 PM CDT Impressions 03/15/2024 2:26 PM CDT 1. Left parieto-occipital scalp hematoma. No skull fracture or acute intracranial hemorrhage identified. Please note that all CT scans at this facility use dose modulation, iterative reconstruction, and/or weight-based dosing when appropriate to reduce radiation dose to as low as reasonably achievable. Dictated by Gosia Starks MD @ 03/15/2024 2:26:24 PM (Electronically Signed) Narrative 03/15/2024 2:26 PM CDT For Patients: ??As a result of the Cures Act, medical imaging exams and procedure reports are released immediately into your electronic medical record. ??You may view this report before your referring provider. ??If you have questions, please contact your health care provider. INDICATION: Trauma TECHNIQUE: Noncontrast axial CT of the head. Coronal and sagittal reformats. Bone and soft tissue algorithms. COMPARISON: No relevant comparison studies available at this institution. FINDINGS: Left parieto-occipital scalp hematoma. Bony calvarium appears grossly intact. No acute intracranial hemorrhage or abnormal extra-axial fluid collection. No midline shift, hydrocephalus, or herniation. Mild generalized cerebral volume loss. Preserved coles-white matter differentiation. Unremarkable white matter attenuation. Midline structures appear within normal limits. Minor calcific plaquing at the carotid siphons. Bilateral maxillary sinus mucous retention cysts/polyps, with partial opacification and chronic osteitis changes at the diminutive right sphenoid sinus. Unremarkable orbits. Procedure Note Gosia Starks, DO - 03/15/2024 For Patients: As a result of the Cures Act, medical imagingexams and procedure reports are released immediately into your electronicmedical record. You may view this report before your referring provider.If you have questions, please contact your health care provider. INDICATION: Trauma TECHNIQUE: Noncontrast axial CT of the head. Coronal and sagittal reformats. Bone andsoft tissue algorithms. COMPARISON: No relevant comparison studies available at this institution. FINDINGS: Left parieto-occipital scalp hematoma. Bony calvarium appears grosslyintact. No acute intracranial hemorrhage or abnormal extra-axial fluidcollection. No midline shift, hydrocephalus, or herniation. Mildgeneralized cerebral volume loss. Preserved coles-white matterdifferentiation. Unremarkable white matter attenuation. Midline structuresappear within normal limits. Minor calcific plaquing at the carotidsiphons. Bilateral maxillary sinus mucous retention cysts/polyps, withpartial opacification and chronic osteitis changes at the diminutive rightsphenoid sinus. Unremarkable orbits. IMPRESSION: 1. Left parieto-occipital scalp hematoma. No skull fracture or acuteintracranial hemorrhage identified. Please note that all CT scans at this facility use dose modulation,iterative reconstruction, and/or weight-based dosing when appropriate toreduce radiation dose to as low as reasonably achievable. Dictated by Gosia Starks MD @ 03/15/2024 2:26:24 PM (Electronically Signed) Janina Valero MD CT * CT CHEST ABDOMEN PELVIS W (03/15/2024 2:02 PM CDT) Anatomical Region Laterality Modality Abdomen, Pelvis, AORTA, LIVER, SPLEEN, CHEST Computed Tomography 03/15/2024 2:52 PM CDT Impressions 03/15/2024 2:52 PM CDT Acute nondisplaced left anterior 6th through 8th rib fractures. Incomplete visualization of known subacute/chronic nondisplaced left femoral neck fracture with associated chronic lateral thigh and gluteal hematoma. Otherwise, no acute intrathoracic or intra-abdominal/pelvic abnormality. Additional chronic findings as above. Please note that all CT scans at this facility use dose modulation, iterative reconstruction, and/or weight-based dosing when appropriate to reduce radiation dose to as low as reasonably achievable. Dictated by Lee Damon MD @ 03/15/2024 2:52:34 PM (Electronically Signed) Narrative 03/15/2024 2:52 PM CDT For Patients: ??As a result of the 21st Century Cures Act, medical imaging exams and procedure reports are released immediately into your electronic medical record. ??You may view this report before your referring provider. ??If you have questions, please contact your health care provider. INDICATION: Trauma. TECHNIQUE: CT chest, abdomen and pelvis acquired with 100 cc Omnipaque 350 IV contrast. COMPARISON: CT chest, October 15, 2023. CT left lower extremity, February 17, 2024 FINDINGS: CHEST: Cardiovascular structures: Cardiomegaly with coronary artery calcifications. Coronary artery calcifications. Pulmonary arterial enlargement Mediastinum and ney: No mass or adenopathy. ?? Lungs and pleura: Scattered atelectasis. Lungs and pleural spaces are clear. No suspicious nodules, infiltrates, or effusions. ?? Chest wall and axilla: Left chest wall pacemaker device/AICD. No mass or adenopathy. ?? Bones: Acute nondisplaced left anterior 6th through 8th rib fractures. ABDOMEN AND PELVIS: Liver: Subtle nodular hepatic contour. No sign of acute injury. Gallbladder and bile ducts: Unremarkable. ?? Pancreas: Unremarkable. ?? Spleen: Unremarkable. No sign of acute injury. Adrenal glands: Unremarkable. ?? Kidneys: Unremarkable. ?? GI tract: Colonic diverticulosis without diverticulitis. No bowel obstruction. Vascular structures: Aortoiliac arterial calcification. Mesenteric arteries are patent. Lymph nodes: Unremarkable. ?? Miscellaneous: Tiny fat containing umbilical hernia. No free air or significant free fluid. ?? Pelvic Organs: Mild prostatomegaly. Moderately distended bladder with multiple diverticula. Bones: Re-demonstration of known subacute/chronic nondisplaced left femoral neck fracture with associated chronic lateral thigh and gluteal hematoma, incompletely visualized. Procedure Note Lee Damon MD - 03/15/2024 For Patients: As a result of the 21st Century Cures Act, medical imagingexams and procedure reports are released immediately into your electronicmedical record. You may view this report before your referring provider.If you have questions, please contact your health care provider. INDICATION: Trauma. TECHNIQUE: CT chest, abdomen and pelvis acquired with 100 cc Omnipaque 350 IVcontrast. COMPARISON: CT chest, October 15, 2023. CT left lower extremity, February 17, 2024 FINDINGS: CHEST: Cardiovascular structures: Cardiomegaly with coronary arterycalcifications. Coronary artery calcifications. Pulmonary arterialenlargement Mediastinum and ney: No mass or adenopathy. Lungs and pleura: Scattered atelectasis. Lungs and pleural spaces areclear. No suspicious nodules, infiltrates, or effusions. Chest wall and axilla: Left chest wall pacemaker device/AICD. No mass oradenopathy. Bones: Acute nondisplaced left anterior 6th through 8th rib fractures. ABDOMEN AND PELVIS: Liver: Subtle nodular hepatic contour. No sign of acute injury. Gallbladder and bile ducts: Unremarkable. Pancreas: Unremarkable. Spleen: Unremarkable. No sign of acute injury. Adrenal glands: Unremarkable. Kidneys: Unremarkable. GI tract: Colonic diverticulosis without diverticulitis. No bowelobstruction. Vascular structures: Aortoiliac arterial calcification. Mesentericarteries are patent. Lymph nodes: Unremarkable. Miscellaneous: Tiny fat containing umbilical hernia. No free air orsignificant free fluid. Pelvic Organs: Mild prostatomegaly. Moderately distended bladder withmultiple diverticula. Bones: Re-demonstration of known subacute/chronic nondisplaced leftfemoral neck fracture with associated chronic lateral thigh and glutealhematoma, incompletely visualized. IMPRESSION: Acute nondisplaced left anterior 6th through 8th rib fractures. Incomplete visualization of known subacute/chronic nondisplaced leftfemoral neck fracture with associated chronic lateral thigh and glutealhematoma. Otherwise, no acute intrathoracic or intra-abdominal/pelvic abnormality. Additional chronic findings as above. Please note that all CT scans at this facility use dose modulation,iterative reconstruction, and/or weight-based dosing when appropriate toreduce radiation dose to as low as reasonably achievable. Dictated by Lee Damon MD @ 03/15/2024 2:52:34 PM (Electronically Signed) Janina Valero MD CT * HCHG TUBING PR1, HCHG KIT PR1, HCHG NDL PR1, HCHG NDL PR1 (03/15/2024 1:33 PM CDT) Narrative Fatemeh Hunt CRNA - 03/15/2024 1:33 PM CDT Fatemeh Hunt CRNA ? 03/15/2024 ??1:50 PM IV Start Patient location during procedure: ED Start time: 03/15/2024 1:33 PM End time: 03/15/2024 1:36 PM Nursing unable to start IV: Yes Requesting provider: Argelia Martin NP, Trauma PIV Site was prepped per hospital policy Laterality: left Needle Size: 20 G Site: upper arm Insertion Technique: anatomical landmarks Supplies Used: set primary IV tubing Fatemeh Hunt CRNA ANESTHESIA PX NOTE ORDERABLES * XR CHEST 1 VIEW PORTABLE (03/15/2024 1:08 PM CDT) Only the most recent of2 resultswithin the time period is included. Anatomical Region Laterality Modality HEART, THORAX, CHEST Digital Rad iography 03/15/2024 1:44 PM CDT Impressions 03/15/2024 1:44 PM CDT No evidence of acute cardiopulmonary disease. Dictated by Krzysztof Ellis MD @ 03/15/2024 1:44:20 PM (Electronically Signed) Narrative 03/15/2024 1:44 PM CDT For Patients: ??As a result of the Cures Act, medical imaging exams and procedure reports are released immediately into your electronic medical record. ??You may view this report before your referring provider. ??If you have questions, please contact your health care provider. INDICATION: Trauma. TECHNIQUE: Chest 1 portable view. COMPARISON: 02/17/2024. FINDINGS: Intracardiac device appears appropriately positioned. No pneumothorax, pleural effusion or focal airspace consolidation. Mild bibasilar scarring or atelectasis. Aortic atherosclerosis and tortuosity, as before. Cardiomegaly, unchanged. Prior median sternotomy. Upper abdomen and osseous structures as imaged show no acute abnormality. Procedure Note Krzysztof Ellis, DO - 03/15/2024 For Patients: As a result of the Cures Act, medical imagingexams and procedure reports are released immediately into your electronicmedical record. You may view this report before your referring provider.If you have questions, please contact your health care provider. INDICATION: Trauma. TECHNIQUE: Chest 1 portable view. COMPARISON: 02/17/2024. FINDINGS: Intracardiac device appears appropriately positioned. No pneumothorax,pleural effusion or focal airspace consolidation. Mild bibasilar scarringor atelectasis. Aortic atherosclerosis and tortuosity, as before.Cardiomegaly, unchanged. Prior median sternotomy. Upper abdomen andosseous structures as imaged show no acute abnormality. IMPRESSION: No evidence of acute cardiopulmonary disease. Dictated by Krzysztof Ellis MD @ 03/15/2024 1:44:20 PM (Electronically Signed) Janina Valero MD GENERAL IMAGING * XR TIBIA AND FIBULA 2 VIEWS LEFT PORTABLE (03/15/2024 1:08 PM CDT) Anatomical Region Laterality Modality Tibia Digital Radiogra phy 03/15/2024 1:41 PM CDT Impressions 03/15/2024 1:41 PM CDT No acute osseous abnormality. Dictated by Krzysztof Ellis MD @ 03/15/2024 1:41:49 PM (Electronically Signed) Narrative 03/15/2024 1:41 PM CDT For Patients: ??As a result of the Cures Act, medical imaging exams and procedure reports are released immediately into your electronic medical record. ??You may view this report before your referring provider. ??If you have questions, please contact your health care provider. INDICATION: Trauma. TECHNIQUE: Left tibia and fibula 4 portable views. COMPARISON: None. FINDINGS: No evidence of acute fracture or dislocation. Degenerative changes of the knee and ankle. No additional osseous abnormality. Soft tissue irregularity of the distal anterior leg with anterior soft tissue swelling and suspected overlying bandage material. No definite radiopaque foreign body. Procedure Note Krzysztof Ellis, - 03/15/2024 For Patients: As a result of the Cures Act, medical imagingexams and procedure reports are released immediately into your electronicmedical record. You may view this report before your referring provider.If you have questions, please contact your health care provider. INDICATION: Trauma. TECHNIQUE: Left tibia and fibula 4 portable views. COMPARISON: None. FINDINGS: No evidence of acute fracture or dislocation. Degenerative changes of theknee and ankle. No additional osseous abnormality. Soft tissueirregularity of the distal anterior leg with anterior soft tissue swellingand suspected overlying bandage material. No definite radiopaque foreignbody. IMPRESSION: No acute osseous abnormality. Dictated by Krzysztof Ellis MD @ 03/15/2024 1:41:49 PM (Electronically Signed) Janina Valero MD GENERAL IMAGING * (ABNORMAL) TROPONIN T (HS) ACUTE W/2HR REFLEX (03/15/2024 12:48 PM CDT) [facility] TROPONIN T HS 30(H) 6-15 ng/L ng/L 03/15/2024 8:01 PM CDT [facility] Blood BLOOD SPECIMEN / Unknown Venipuncture / Unknown 03/15/2024 12:48 PM CDT 03/15/2024 12:57 PM CDT [facility] - 03/15/2024 8:01 PM CDT hs-cTnT (Elecsys Troponin T Gen 5) concentration (s) above the sex-specific 99th percentile (16 ng/L or greater for males or 11 ng/L or greater for females) are indicative of myocardial injury. If initial hs-cTnT <=100 ng/L at presentation, a 0h/2h ABSOLUTE (ng/L) delta change (rising or falling) of >=10 ng/L suggests a significant change, whereas a 0h/2h delta change <=3 ng/L suggests no significant change. If initial hs-cTnT >100 ng/L at presentation, a 0h/2h/ RELATIVE (percent, %) delta change of 20% is suggested to distinguish patients with acute vs. chronic myocardial injury. There are multiple etiologies that can cause hs-cTnT increases above the 99th percentile (myocardial injury) other than acute myocardial infarction. Clinical context and careful clinical evaluation are critical for diagnosis and risk-stratification. The diagnosis of acute myocardial infarction requires a rising and/or falling pattern in hs-cTnT concentrations with at least one value above the sex-specific 99th percentile PLUS at least one of the following clinical criteria: ischemic symptoms, new or presumed new significant ST-T wave changes or new LBBB, development of pathological Q waves, imaging evidence of new loss of viable myocardium or new regional wall motion abnormality, or identification of intracoronary atherothrombosis or an acute angiographic culprit on coronary angiography. In appropriate low-risk patients with a non-ischemic electrocardiogram without active chest pain with a symptom onset >3-hours without recurrence, a single initial hs-cTnT<6 ng/L identifies patient with a very low risk in emergency department patient population. Janina Valero MD CHEMISTRY [facility] [address] [place] [address] * Type and Screen (03/15/2024 12:48 PM CDT) Only the most recent of2 resultswithin the time period is included. Pathologist [facility] ABORH O Rh Positive 03/15/2024 1:29 PM CDT [facility] BLOOD BANK ANTIBODY SCREEN Negative Negative 03/15/2024 1:29 PM CDT [facility] BLOOD BANK SPECIMEN EXPIRATION DATE/TIME 03/18/24 23:59 03/15/2024 1:29 PM CDT [facility] BLOOD BANK Blood BLOOD SPECIMEN / Unknown Venipuncture / Unknown 03/15/2024 12:48 PM CDT 03/15/2024 12:57 PM CDT Janina Valero MD BLOOD BANK Performing Organization Address City/State/[facility] Co de Phone Number [facility] BLOOD BANK [address] [place] [address] * (ABNORMAL) PROTIME- INR (03/15/2024 12:48 PM CDT) Only the most recent of3 resultswithin the time period is included. [facility] INR 2.4(H) <1.3 03/15/2024 1:09 PM CDT [facility] PROTIME 26.0(H) 10.3 - 12.3 sec 03/15/2024 1:09 PM CDT [facility] Blood BLOOD SPECIMEN / Unknown Venipuncture / Unknown 03/15/2024 12:48 PM CDT 03/15/2024 12:57 PM CDT Narrative [facility] - 03/15/2024 1:09 PM CDT ?Therapeutic Range 2.0-3.0 for most [...] seconds if the patient is on UFH. Janina Valero MD HEMATOLOGY [facility] [address] [place] [address] * (ABNORMAL) PRO-BNP (03/15/2024 12:48 PM CDT) Only the most recent of4 resultswithin the time period is included. [facility] PRO-BNP 4,187(H) <125 pg/mL 03/15/2024 6:50 PM CDT [facility] Blood BLOOD SPECIMEN / Unknown Venipuncture / Unknown 03/15/2024 12:48 PM CDT 03/15/2024 12:57 PM CDT [facility] - 03/15/2024 6:50 PM CDT The following cut-points have been [...] 72% for acute congestive heart failure. ? Janina Valero MD SEND OUTS [facility] [address] [place] [address] * SCAN-CARDIAC STRIP (02/21/2024 9:16 AM CDT) Scanner OTHER * Platelets AM (02/21/2024 7:50 AM CDT) Only the most recent of3 resultswithin the time period is included. PLATELET COUNT 280 140 - 440 thou/cu mm 02/21/2024 8:10 AM CDT [facility] MPV 8.7 6.5 - 11.0 fL 02/21/2024 8:10 AM CDT [facility] Blood BLOOD SPECIMEN / Unknown Venipuncture / Unknown 02/21/2024 7:50 AM CDT 02/21/2024 8:01 AM CDT Danay Fuchs MD [facility]OLOGY [facility] [address] * (ABNORMAL) WBC AM (02/21/2024 7:50 AM CDT) Only the most recent of2 resultswithin the time period is included. WHITE BLOOD COUNT 12.5(H) 4.5 - 11.0 thou/cu mm 02/21/2024 8:10 AM CDT [facility] NRBC 0.0 % 02/21/2024 8:10 AM CDT [facility] ABS NRBC 0.0 thou /cu mm 02/21/2024 8:10 AM CDT [facility] Blood BLOOD SPECIMEN / Unknown Venipuncture / Unknown 02/21/2024 7:50 AM CDT 02/21/2024 8:01 AM CDT Danay Fuchs MD HEMATOLOGY [facility] [address] [address], * Magnesium AM (02/21/2024 7:50 AM CDT) Only the most recent of4 resultswithin the time period is included. MAGNESIUM 2.4 1.6 - 2.4 mg/dL 02/21/2024 8:30 AM CDT [facility] Blood BLOOD SPECIMEN / Unknown Venipuncture / Unknown 02/21/2024 7:50 AM CDT 02/21/2024 8:02 AM CDT Tayler Woodward NP CHEMISTRY Performing Organization Address [facility] Co de Phone Number [facility] [address] [place] [address], [place] * SCAN-CARDIAC STRIP (02/21/2024 4:55 AM CDT) Scanner OTHER * (ABNORMAL) HEMATOCRIT (02/20/2024 1:13 PM CDT) HEMATOCRIT 32.4(L) 37.0 - 53.0 % 02/20/2024 1:30 PM CDT [facility] Blood BLOOD SPECIMEN / Unknown Venipuncture / Unknown 02/20/2024 1:13 PM CDT 02/20/2024 1:19 PM CDT Narrative [facility] - 02/20/2024 1:30 PM CDT Obtain before initiating IV heparin therapy if not done within previous 24 hours. Obtain before initiating IV heparin therapy if not done within previous 24 hours. Obtain before initiating IV heparin therapy if not done within previous 24 hours. Jose G Guzman MD HEMATOLOGY Performing Organization Address [facility] Co de Phone Number [facility] [address] [place] [id number], [place] * (ABNORMAL) BUN (02/20/2024 1:13 PM CDT) BUN 32(H) 8 - 23 mg/dL 02/20/2024 2:37 PM CDT [facility] Blood BLOOD SPECIMEN / Unknown Venipuncture / Unknown 02/20/2024 1:13 PM CDT 02/20/2024 1:19 PM CDT Jose G Guzman MD CHEMISTRY Performing Organization Address [facility] Co de Phone Number [facility] [address] [place] [address], * (ABNORMAL) CREATININE (02/20/2024 1:13 PM CDT) eGFR 65(L) >90 mL/min/1.7 3m2 02/20/2024 2:37 PM CDT [facility] Comment:As of 2021, eG FR is calculated by the CKD-EPI creatinine equation without race adjustment. ??eGFR can be influenced by muscle mass, exercise, and diet. ??The reported eGFR is an estimation only and is only applicable if the renal function is stable. CREATININE 1.18 0.70 - 1.20 mg/dL 02/20/2024 2:37 PM CDT [facility] Blood BLOOD SPECIMEN / Unknown Venipuncture / Unknown 02/20/2024 1:13 PM CDT 02/20/2024 1:19 PM CDT Jose G Guzman MD CHEMISTRY Performing Organization Address [facility] Co de Phone Number [facility] [address] [place] [address], [place] * APTT (02/20/2024 1:13 PM CDT) APTT 35 28 - 36 sec 02/20/2024 1:41 PM CDT [facility] Blood BLOOD SPECIMEN / Unknown Venipuncture / Unknown 02/20/2024 1:13 PM CDT 02/20/2024 1:19 PM CDT Narrative [facility] - 02/20/2024 1:41 PM CDT Therapeutic Range: 57-87 seconds Jose G Guzman MD HEMATOLOGY [facility] [address] [place] [address], [place] * XR PELVIS 1 VIEW (02/20/2024 7:27 AM CDT) Anatomical Region Laterality Modality Pelvis Digital Radiogra phy 02/20/2024 7:47 AM CDT Impressions 02/20/2024 7:47 AM CDT Very subtle left femoral neck fracture is better seen on CT than radiographs. Dictated by Chantell Bobby MD @ Feb 20 2024 ??7:47AM (Electronically Signed) [email or web address] Narrative 02/20/2024 7:47 AM CDT For Patients: [...] For Patients: As a result of the s Act, medical imagingexams and procedure reports are [...] @ Feb 20 2024 7:47AM (Electronically Signed) [email or web address] Ellie [facility]AS [facility] * SCAN-CARDIAC STRIP (02/20/2024 7:02 AM CDT) Scanner OTHER * SCAN-CARDIAC STRIP (02/19/2024 6:40 PM CDT) Scanner OTHER * (ABNORMAL) COMPREHENSIVE BLOOD GAS MIXED VENOUS (02/19/2024 10:03 AM CDT) O2 SATURATION, MEASURED, MIXED VENOUS 63(L) 70 - 75 % 02/19/2024 10:03 AM CDT [facility] PATIENT TEMPERATURE 37.0 Degrees C 02/19/2024 10:03 AM CDT [facility] HEMOGLOBIN,BLOO D GAS 10.3(L) 13.5 - 17.5 g/dL 02/19/2024 10:03 AM CDT [facility] Blood BLOOD SPECIMEN / Unknown 02/19/2024 10:03 AM CDT 02/20/2024 8:46 AM CDT Danay Fuchs MD CHEMISTRY [facility] [address] [place] [address], * CV Procedure to be Performed (02/19/2024 9:55 AM CDT) Narrative Jose G Guzman MD - 02/19/2024 9:55 AM CDT Jose G Guzman MD ? 02/19/2024 10:06 AM [facility] Advanced Heart Failure Procedure Note Right Heart [...] the end of the procedure. ??Please see [facility] procedure log for full list of medications [...] WUs Case Comments: Access: ??Uncomplicated EBL: ??minimal Jose G Guzman MD [facility] Advanced Heart Failure/Transplant Cardiology/[facility] [address] ?? Pager: [phone] Click for [email or web address] Kathleen ARMAS NUCLEAR SUPERVISING OPERATOR ORD * CVL OTHER PROCEDURE (02/19/2024 9:53 AM CDT) Anatomical Region Laterality Modality Other 02/19/2024 9:53 AM CDT Provider Referring CV IMAGING * (ABNORMAL) CBC WITH AUTO DIFFERENTIAL (02/19/2024 7:54 AM CDT) Only the most recent of2 resultswithin the time period is included. WHITE BLOOD COUNT 12.0(H) 4.5 - 11.0 thou/cu mm 02/19/2024 8:39 AM CDT [facility] RED BLOOD COUNT 3.37(L) 4.30 - 5.90 mil/cu mm 02/19/2024 8:39 AM T [facility] HEMOGLOBIN 10.7(L) 13.5 - 17.5 g/dL 02/19/2024 8:39 AM T [facility] HEMATOCRIT 32.8(L) 37.0 - 53.0 % 02/19/2024 8:39 AM T [facility] MCV 97 80 - 100 fL 02/19/2024 8:39 AM [facility] MCH 31.8 26.0 - 34.0 pg 02/19/2024 8:39 AM T [facility] MCHC 32.6 32.0 - 36.0 g/dL 02/19/2024 8:39 AM T [facility] RDW 14.6 11.5 - 15.5 % 02/19/2024 8:39 AM [facility] PLATELET COUNT 273 140 - 440 thou/cu mm 02/19/2024 8:39 AM T [facility] MPV 9.2 6.5 - 11.0 fL 02/19/2024 8:39 AM [facility] NRBC 0.0 % 02/19/2024 8:39 AM T [facility] ABS NRBC 0.0 thou /cu mm 02/19/2024 8:39 AM T [facility] % NEUT 55.8 % 02/19/2024 8:39 AM T [facility] % LYMPH 25.2 % 02/19/2024 8:39 AM T [facility] % MONO 15.4 % 02/19/2024 8:39 AM CDT [facility] % EOS 2.1 % 02/19/2024 8:39 AM CDT [facility] % BASO 0.7 % 02/19/2024 8:39 AM CDT [facility] % IMMATURE GRAN (METAS,MYELOS,PA OS) 0.8 % 02/19/2024 8:39 AM CDT [facility] ABSOLUTE NEUTROPHILS 6.7 1.7 - 7.0 thou/cu mm 02/19/2024 8:39 AM CDT [facility] ABSOLUTE LYMPHOCYTES 3.0(H) 0.9 - 2.9 thou/cu mm 02/19/2024 8:39 AM CDT [facility] ABSOLUTE MONOCYTES 1.9(H) <0.9 thou/cu mm 02/19/2024 8:39 AM CDT [facility] ABSOLUTE EOSINOPHILS 0.3 <0.5 thou/cu mm 02/19/2024 8:39 AM CDT [facility] ABSOLUTE BASOPHILS 0.1 <0.3 thou/cu mm 02/19/2024 8:39 AM CDT [facility] ABSOLUTE IMMATURE GRANULOCYTES(MET ,MYELOS,PROS) 0.1 <0.3 thou/cu mm 02/19/2024 8:39 AM CDT [facility] Blood BLOOD SPECIMEN / Unknown Venipuncture / Unknown 02/19/2024 7:54 AM CDT 02/19/2024 8:26 AM CDT Danay Fuchs MD HEMATOLOGY [facility] [address] [place] [address], * SCAN-CARDIAC STRIP (02/19/2024 7:30 AM CDT) [...] (02/18/2024 7:41 AM CDT) Scanner OTHER * CT LOWER EXTREMITY LEFT W (02/17/2024 [...] 12:54:52 AM (Electronically Signed) Procedure Note Ayaz Rodríguez MD - 02/18/2024 For Patients: As a [...] (Electronically Signed) Alba Ha DO CT * US VENOUS LOWER EXTREMITY LEFT PORTABLE [...] For Patients: ??As a result of the Century Cures Act, medical imaging exams and [...] @ 02/17/2024 9:12:13 PM (Electronically Signed) Alba Webster Leland DO US * (ABNORMAL) COMP METABOLIC PANEL (02/17/2024 8:40 PM CDT) SODIUM 135(L) 136 - 145 mmol/L 02/17/2024 9:23 PM CDT [facility] POTASSIUM 5.3(H) 3.5 - 5.1 mmol/L 02/17/2024 9:23 PM CDT [facility] CHLORIDE 99 98 - 107 mmol/L 02/17/2024 9:23 PM CDT [facility] CO2,TOTAL 25 22 - 29 mmol/L 02/17/2024 9:23 PM CDT [facility] ANION GAP 11 5 - 18 02/17/2024 9:23 PM T [facility] GLUCOSE 123(H) 70 - 99 mg/dL 02/17/2024 9:23 PM T [facility] CALCIUM 8.9 8.8 - 10.2 mg/dL 02/17/2024 9:23 PM [facility] BUN 70(H) 8 - 23 mg/dL 02/17/2024 9:23 PM [facility] CREATININE 1.69(H) 0.70 - 1.20 mg/dL 02/17/2024 9:23 PM [facility] BUN/CREAT RATIO 41(H) 10 - 20 9:23 PM [facility] eGFR 42(L) >90 mL/min/1.7 3m2 02/17/2024 9:23 PM [facility] Comment:As of 2021, eG FR is calculated by the CKD-EPI creatinine equation without race adjustment. ??eGFR can be influenced by muscle mass, exercise, and diet. ??The reported eGFR is an estimation only and is only applicable if the renal function is stable. ALBUMIN 3.5(L) 4.0 - 4.9 g/dL 02/17/2024 9:23 PM [facility] PROTEIN,TOTAL 6.2 6.0 - 8.0 g/dL 02/17/2024 9:23 PM [facility] BILIRUBIN,TOTAL 0.9 0.0 - 1.2 mg/dL 02/17/2024 9:23 PM [facility] ALK PHOSPHATASE 97 40 - 129 IU/L 02/17/2024 9:23 PM [facility] ALT (SGPT) 24 10 - 50 IU/L 02/17/2024 9:23 PM [facility] AST (SGOT) 42 10 - 50 IU/L 02/17/2024 9:23 PM [facility] Blood BLOOD SPECIMEN / Unknown Venipuncture / Unknown 02/17/2024 8:40 PM CDT 02/17/2024 8:45 PM CDT Alba Ha DO CHEMISTRY [facility] [address] [place] [address], * (ABNORMAL) LIPID PANEL (01/07/2018 4:35 PM CDT) CHOLESTEROL,TOTAL 174 100 - 199 mg/dL 01/07/2018 6:28 PM CDT [facility] TRIGLYCERIDES 194(H) <150 mg/dL 01/07/2018 6:28 PM CDT [facility] HDL CHOLESTEROL 64 >40 mg/dL 8 6:28 PM CDT [facility] NON-HDL CHOLESTEROL 110 <145 mg/dl 01/07/2018 6:28 PM CDT [facility] CHOL/HDL RATIO 2.72 <4.50 01/07/2018 6:28 PM CDT [facility] LDL CHOLESTEROL 71 <=130 mg/dL 01/07/2018 6:28 PM CDT [facility] PROVIDER ORDERED STATUS RANDOM 01/07/2018 6:28 PM CDT [facility] Blood BLOOD SPECIMEN / Unknown Venipuncture / Unknown 01/07/2018 4:35 PM CDT 01/07/2018 4:39 PM CDT Aba Boo MD CHEMISTRY [facility] [address] [place] [address] from Last 3 Months or Most Recently Relevant to Health Maintenance Advance Directives * Full Code (Latest Code Status on File) Date Activated Date Inactivated Comments 03/15/2024 10:32 PM 03/19/2024 1:27 PM Question Answer Comments Code Status Discussion: Reviewed Preferences * Full Code Date Activated Date Inactivated Comments 02/17/2024 11:50 [...] Answer Comments Code Status Discussion: Reviewed Preferences Care Teams Senior Cost Estimator Relationship Specialty Start Date End Date Aba Boo MD [address] [place] [address] PCP - General Family Practice 11/18/19 Destin Johnston MD [address] [place] [address] Cardiology - CHF Cardiovascular Disease 04/14/20 Nurses, Advanced Heart Failure [address] [place] [address] Advanced Heart Failure/Transplant Card 04/14/20
--- OUTSIDE RECORDS SUMMARY | 2024-03-24 12:55 | XMS_ITS | Encounter Summary ---
Author Organization [facility] Address [address] [place] [address] Care Team Providers Care Diet Technician Registered Name Role Phone Clinician, Not Found MD Primary Care Provider Un available Reason for Referral * Therapies (Routine) - New Request Specialty Diagnoses / Procedures Referred By Contrashaun paz Referred To Contact Diagnoses Pain of left hip Conner Boudreaux DO [address] [place] [address] Referral ID Status Reason Start Date Expiration Date V isits Requested Visits Authorized [id number] New Request 02/12/2024 02/11/2025 999 999 Scheduling Instructions Your clinician recommended an appointment with Physical Therapy and Rehabilitation Services. You can quickly make your appointment online at [facility]/schedule. You can also call [phone] for help scheduling your appointment. We suggest [...] Diagnoses Left foot pain Conner Boudreaux DO [address] [place] [address] [address] Referral ID Status Reason Start Date Expiration Date V isits Requested Visits Authorized [id number] New Request 02/12/2024 05/13/2025 1 1 Scheduling Instructions Your clinician has recommended an appointment with [facility]. You can quickly make your appointment online at [facility]/schedule. You can also call [phone] for help scheduling your appointment. We suggest you call your health insurance company about your coverage and benefits for this appointment. Question Answer Appointment Urgency? Non-Urgent Reason for visit? hammer toe/foot pain * Procedure/Equipment (Routine) - Incomplete Specialty Diagnoses / Procedures Referred By Contac t Referred To Contact Diagnoses Pain of left hip Procedures XR Pelvis W Lt Lateral Hip Conner Boudreaux DO [address] [place] [address] Referral ID Status Reason Start Date Expiration Date V isits Requested Visits Authorized [id number] Incomplete 02/12/2024 05/13/2025 1 1 Reason for Visit * Reason Comments LEG PAIN Back of buttocks jay n leg pain since last night Encounter Details Date Type Department Care Team (Late st Contact Info) Description 02/12/2024 6:50 PM CDT Office Visit [facility] [address] [place] [address] Conner Boudreaux DO [address] [facility] [place] [place] [address] Pain of left hip (Primary Dx); Left [...] Schedule your physical therapy appointment by calling [phone]. The following medications were prescribed at your visit : Orders Placed This Encounter Medications HYDROcodone-acetaminophen (NORCO) 5-325 MG tablet Sig: Take 1 Tablet by mouth every 8 hours as needed for Pain. Dispense: 12 Tablet Refill: 0 Medication Refill Requests: Prescription Refill Requests are not filled on Weekends or on Weekdays after 3:00PM For all medication refills: Request a refill using [facility] or contact your Pharmacy documented in this encounter Progress Notes * Conner Boudreaux DO - 02/12/2024 12:00 AM CDT NAME: MERRICK CENTENO CSN: [id number] CLINIC NOTE DATE OF SERVICE: 02/12/2024 : [...] it worse. PAST MEDICAL HISTORY: Reviewed in [facility]. REVIEW OF SYSTEMS: Temperature is afebrile. PHYSICAL [...] is having recurrent symptoms. Recommend physical therapy. [place] for pain relief, heat and massage. CONNER BOUDREAUX DO [facility]/AQS /[phone] documented in this encounter Plan of Treatment [...] hip documented in this encounter Care Teams Diet Technician Registered Relationship Specialty Start Date End Date Clinician, Not Found, [place] [address] PCP - General 06/23/20 documented as of this encounter
--- OUTSIDE RECORDS SUMMARY | 2024-03-24 12:55 | XMS_ITS | Encounter Summary ---
Author Organization [facility] Address [address], [place] [address] Care Team Providers Care Paint Spray Tender Name Role Phone Clinician, Not Found MD Primary Care Provider Un available Reason for Visit * Reason Comments Questions Encounter Details Date Type Department Care Team (Late st Contact Info) Description 12/30/2023 Telephone [facility] [address] [place], [place] [address] Zakia Carrillo, CHICK SEXER, DAIRY NUTRITION SPECIALIST [address] [place] [address] Questions Social History Tobacco Use Types Packs/Day [...] [place] * Erendira Prince - 12/30/2023 3:02 PM CDT GENERAL QUESTIONS How may we help you today? Patient requesting call back. Please advis. Describe your symptoms/concerns: patient is calling to speak with Zakia Carrillo APRN, CNP. Patientwould like to discuss [...] can we send you a message in [employer]? No [Applied Researcher/Elevated Work Platform Operator: Relay to patient; We make every effort to get back to you sameday, however it may take 1-2 business days depending on the nature of the communication.] documented in this encounter Plan of Treatment Not on file documented as of this encounter Visit Diagnoses Not on filedocumented in this encounter Care Teams Paint Spray Tender Relationship Specialty Start Date End Date Clinician, Not Found, [place] [address] PCP - General 06/23/20 documented as of this encounter
== END 2024-03-24 12:49 | disposition home or self-care (01) ==
PROVIDERS: PCP Family Medicine; Visit Provider Surgery
DX: S81.802A Unspecified open wound, left lower leg, initial encounter (principal); V86.59XA Driver of other special all-terrain or other off-road motor vehicle injured in nontraffic accident, initial encounter; Y93.53 Activity, golf; I87.303 Chronic venous hypertension (idiopathic) without complications of bilateral lower extremity; I89.0 Lymphedema, not elsewhere classified; Z79.01 Long term (current) use of anticoagulants; I48.91 Unspecified atrial fibrillation; Z48.02 Encounter for removal of sutures
CPT/HCPCS: 87070; 87186; 97597; G0463

== ENCOUNTER 2024-03-29 07:57 | Outpatient (CLI) | payer MEDICARE, BC, SELFPAY ==
--- OUTSIDE RECORDS SUMMARY | 2024-03-29 08:00 | XMS_ITS | Encounter Summary ---
Author Organization [facility] Address [address] [address] Care Team Providers Care Flat Knitter Name Role Phone Clinician, Not Found MD Primary Care Provider Un available Reason for Visit * Procedure/Equipment (Routine) - Incomplete Specialty Diagnoses / Procedures Referred By Contac t Referred To Contact Diagnoses Pain of left hip Procedures XR Pelvis W Lt Lateral Hip Sanjay Leach DO [address] [facility] [place] [place] [address] Referral ID Status Reason Start Date Expiration Date V isits Requested Visits Authorized [id number] Incomplete 02/12/2024 05/13/2025 1 1 Encounter Details Date Type Department Care Team (Late st Contact Info) Description 02/12/2024 7:10 PM CDT Ancillary Procedure [facility] [address] Radiology [address] [place] [phone] Sanjay Leach DO [address] [facility] [address] [place] [address] Pain of left hip Social History Tobacco [...] hip documented in this encounter Care Teams Flat Knitter Relationship Specialty Start Date End Date Clinician, Not Found, [place] [address] PCP - General 06/23/20 documented as of this encounter
--- OUTSIDE RECORDS SUMMARY | 2024-03-29 08:00 | XMS_ITS | Clinical Summary ---
Author Organization [employer] [facility] Address [place], [place] [address] Care Team Providers Care Dental Receptionist Name Role Phone Aba Boo MD Primary [...] type, unspecified whether angina present, unspecified whether [place] ind[place] tribe or transplanted heart Take 1 Tablet (10 [...] once daily. Dose increased by PCP (outside [facility]) 10/24. 4 Active sotaloL (BETAPACE) 120 mg [...] in the evening. 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 Ashton. Hypothyroidism 02/17/2024 Encounters Date Type Department Care Team Description 03/29/2024 Telephone [facility] [address] [place] [address] Riaz Peterson MD Questions 03/22/2024 Telephone [facility] [place] [facility] [place] [address] [place] [address] Destin Johnston MD Follow Up (BP update) 03/19/2024 Orders Only [facility] [place] [address] [facility] [address] [place] [phone] Destin Johnston MD <No scans attached> 03/15/2024 10:28 PM CDT - 03/19/2024 11:22 AM CDT Hospital Encounter [facility] [address] [place] [address] Alan De Santiago MD Kiberenge, MD Kaleb Monroy, MD Keyla Mcgarry, DO Gerardo Lundberg, Lee Kennedy MD [facility] Left displaced femoral neck fracture (HC) (Primary Dx); Closed fracture of multiple ribs of left side, sequela; Closed fracture of neck of left femur with routine healing, subsequent encounter; Acute on chronic HFrEF (heart failure with reduced ejection fraction) (HC) Discharge Disposition: Home Self Care 03/15/2024 6:00 PM CDT Hospital Encounter [facility] [address] [place] [address] [facility] 03/15/2024 1:49 PM CDT Anesthesia Event [address] [address] Fatemeh Hunt CRNA 03/15/2024 12:13 PM CDT - 03/15/2024 9:18 PM CDT Emergency [facility] [address] [place] [address] Janina Valero MD Ball, Julieanne Patricia, MD Closed fracture of multiple ribs of left side, initial encounter (Primary Dx); Hypoxia; Hypotension, unspecified hypotension type; Laceration of multiple sites of left lower extremity, initial encounter Discharge Disposition: Crit Acc Hosp w Planned Readmission 03/15/2024 Telephone [facility] [place] [address] [facility] [address] [place] [phone] Erendira Sotomayor NP Letter (Request letter faxed on 03-12-24 be re-faxed as didn't receive the whole document.) 03/15/2024 Travel 03/12/2024 Telephone [facility] [address] [place] [address] Erendira Sotomayor NP Questions 03/11/2024 8:35 AM CDT Ancillary Procedure [facility] [address] [place] [address] [address] [place] [address] 03/11/2024 8:30 AM CDT Office Visit [address] [place] [address] Ellie Martinez PA Hip Pain/problem (Non-operative follow-up visit: non-displaced left femoral neck fracture) 03/11/2024 Travel 03/10/2024 Telephone [facility] [address] [place] [address] Erendira Sotomayor NP Medication Management 03/09/[address] [place] [address] Riaz Peterson MD 03/02/2024 1:00 PM CDT Office Visit [address] [facility] [place] [address] Erendira Sotomayor NP CV Heart Failure Est (EST PT. STAT [facility] F/U, LABS PRIOR AT [facility], H/O CHRONIC HFrEF) 03/02/2024 Travel 03/01/2024 Home Care Visit [facility] [address] [place] [phone] Valentina Green, PT CARE COORDINATION 02/26/2024 11:40 AM CDT Ancillary Procedure [address] [place] [address] 02/26/2024 11:00 AM CDT Office Visit [address] [place] [phone] Riaz Peterson MD Hip Pain/problem (left hip pain) 02/26/2024 4:30 AM CDT Home Care Visit [facility] [address] [place] [address] Katharine Nieves OT OT - MISSED VISIT 02/26/2024 Home Care Visit [facility] [address] [place] [address] Valentina Green, PT EPISODE DISCHARGE 02/26/2024 Travel 02/23/2024 9:30 AM CDT Home Care Visit [facility] [address] [place] [address] Brenda Moses, RN SN - OASIS START OF CARE 02/23/2024 Telephone [facility] [address] [place] [address] Brenda Moses, genetic coordinator 02/23/2024 Plan of Care Documentation [facility] [address] [place] [phone] 02/17/2024 8:19 PM CDT - 02/21/2024 11:03 AM CDT Hospital Encounter [facility] [address] [place] [address] Alba Ha, Rah Mcneal DO Geiger, Lucio Lyon, DO Palacios, MD Shila Sampson, Danay Dickey MD [facility] Hematoma of left lower extremity, initial encounter (Primary Dx); Weakness; Weight gain; Cardiovascular symptoms; Closed fracture of neck of left femur, initial encounter (HC); Chronic HFrEF (heart failure with reduced ejection fraction) (HC); Cellulitis of left lower extremity Discharge Disposition: Home Health 02/17/2024 Travel 02/10/2024 9:30 AM CDT Office Visit [facility] [address] [facility] [address] [place] [address] Destin Johnston MD Office Visit (Appointment Note//IN PERSON F/U VISIT. LABS PRIOR//) 02/10/2024 8:30 AM CDT Orders Only [facility] [address] [facility] [address] [place] [address] Lab 02/10/2024 Travel 01/29/2024 Refill [facility] [address] [facility] [address] [place] [phone] Destin Johnston MD Refill Request 01/19/2024 1:30 PM CDT Orders Only [address] [phone] Lab, [facility] Lab 01/19/2024 Travel 01/16/2024 Orders Only [facility] [address] [facility] [address] [place] [phone] Destin Johnston MD <No scans attached> 01/01/2024 Orders Only [facility] [address] [place] [address] Martha Warner RN <No scans attached> from [...] Description 03/30/2024 9:30 AM CDT Office Visit [facility] [address] [facility] [address] [place] [address] Riaz Peterson MD [address] [facility] [address] [place] [address] 04/05/2024 10:30 AM CDT Office Visit [facility] [address] [place] [address] Kathleen Boyer PA [address] [place] [address] 04/13/2024 8:00 AM CDT Office Visit [facility] - [address] [place] [address] Destin Johnston MD [address] [place] [address] 04/22/2024 1:00 PM CDT Appointment Efraín [facility] 35 [facility] [place] [address] Danielle Florez, OT [address] [place] [address] Health Maintenance Due Date Last Done Comments [...] Completed 03/15/2024 Medical Devices Implanted Type Area Epidemiology Internship Device Identifier Shelf Expiration Date Model / Serial / Lot Graft Valsalva 34mm - [id number] Implanted:Qty: 1 on 09/09/2011 at [facility] [employer] [id number] / / Procedures Procedure Name Priority Date/Time [...] 4:18 AM CDT HEPATIC FUNCTION PANEL CARLOS 4 4:18 AM CDT BASIC METABOLIC PANEL CARLOS [...] PM CDT EXTRA TUBE LIGHT GREEN Today 4 1:23 PM CDT BLOOD GAS,VENOUS STAT 03/16/2024 [...] PELVIS W STAT 03/15/2024 2:02 PM CDT [facility] AN IV START Routine 03/15/2024 1:33 PM CDT [facility] AN IV START Routine 03/15/2024 1:33 PM CDT [facility] AN IV START Routine 03/15/2024 1:33 PM CDT [facility] AN IV START Routine 03/15/2024 1:33 PM [...] 11.0 thou/cu mm 03/19/2024 5:23 AM CDT [facility] RED BLOOD COUNT 3.48(L) 4.30 - 5.90 mil/cu mm 03/19/2024 5:23 AM CDT [facility] HEMOGLOBIN 10.2(L) 13.5 - 17.5 g/dL 03/19/2024 5:23 AM CDT [facility] HEMATOCRIT 33.9(L) 37.0 - 53.0 % 03/19/2024 5:23 AM CDT [facility] MCV 97 80 - 100 fL 03/19/2024 5:23 AM CDT [facility] MCH 29.3 26.0 - 34.0 pg 03/19/2024 5:23 AM CDT [facility] MCHC 30.1(L) 32.0 - 36.0 g/dL 03/19/2024 5:23 AM CDT [facility] RDW 14.8 11.5 - 15.5 % 03/19/2024 5:23 AM CDT [facility] PLATELET COUNT 227 140 - 440 thou/cu mm 03/19/2024 5:23 AM CDT [facility] MPV 9.4 6.5 - 11.0 fL 03/19/2024 5:23 AM CDT [facility] NRBC 0.0 % 03/19/2024 5:23 AM CDT [facility] ABS NRBC 0.0 thou /cu mm 03/19/2024 5:23 AM CDT [facility] Blood BLOOD SPECIMEN / Unknown Venipuncture / Unknown 03/19/2024 4:50 AM CDT 03/19/2024 5:14 AM CDT Varghese Mckenna MD HEMATOLOGY [facility] [address] [place] [address], * (ABNORMAL) HEPATIC FUNCTION PANEL (03/19/2024 4:50 AM CDT) Only the most recent of4 resultswithin the time period is included. ALBUMIN 3.3(L) 4.0 - 4.9 g/dL 03/19/2024 5:44 AM CDT [facility] PROTEIN,TOTAL 6.1 6.0 - 8.0 g/dL 03/19/2024 5:44 AM CDT [facility] BILIRUBIN,TOTAL 0.5 0.0 - 1.2 mg/dL 03/19/2024 5:44 AM CDT [facility] BILIRUBIN,DIRECT 0.2 0.0 - 0.3 mg/dL 03/19/2024 5:44 AM CDT [facility] BILIRUBIN,INDIRE CT 0.3 0.2 - 0.8 mg/dL 03/19/2024 5:44 AM CDT [facility] ALK PHOSPHATASE 122 40 - 129 IU/L 03/19/2024 5:44 AM CDT [facility] ALT (SGPT) 37 10 - 50 IU/L 03/19/2024 5:44 AM CDT [facility] AST (SGOT) 56(H) 10 - 50 IU/L 03/19/2024 5:44 AM CDT [facility] Blood BLOOD SPECIMEN / Unknown Venipuncture / Unknown 03/19/2024 4:50 AM CDT 03/19/2024 5:14 AM CDT Varghese Mckenna MD CHEMISTRY [facility] [address] [place] [address], * (ABNORMAL) BASIC METABOLIC PANEL (03/19/2024 4:50 AM CDT) Only the most recent of12 resultswithin the time period is included. SODIUM 139 136 - 145 mmol/L 03/19/2024 5:44 AM CDT [facility] POTASSIUM 3.9 3.5 - 5.1 mmol/L 03/19/2024 5:44 AM CDT [facility] CHLORIDE 100 98 - 107 mmol/L 03/19/2024 5:44 AM CDT [facility] CO2,TOTAL 33(H) 22 - 29 mmol/L 03/19/2024 5:44 AM CDT [facility] ANION GAP 6 5 - 18 03/19/2024 5:44 AM CDT [facility] GLUCOSE 140(H) 70 - 99 mg/dL 03/19/2024 5:44 AM CDT [facility] CALCIUM 8.9 8.8 - 10.2 mg/dL 03/19/2024 5:44 AM CDT [facility] BUN 30(H) 8 - 23 mg/dL 03/19/2024 5:44 AM CDT [facility] CREATININE 0.87 0.70 - 1.20 mg/dL 03/19/2024 5:44 AM CDT [facility] BUN/CREAT RATIO 34(H) 10 - 20 5:44 AM CDT [facility] eGFR >90 >90 mL/min/1.7 3m2 03/19/2024 5:44 AM CDT [facility] Comment:As of 2021, eG [...] 5:14 AM CDT Varghese Mckenna MD CHEMISTRY [facility] [address] [place] [address], * SCAN-CARDIAC STRIP (03/19/2024 12:01 AM CDT) Scanner OTHER * (ABNORMAL) GLUCOSE METER (03/18/2024 8:36 PM CDT) Only the most recent of17 resultswithin the time period is included. [facility] GLUCOSE METER 172(H) 65 - 100 mg/dL 03/18/2024 11:27 PM CDT [facility] Blood BLOOD SPECIMEN / Unknown 03/18/2024 8:36 PM CDT 03/18/2024 11:27 PM CDT Lee Carrillo MD CHEMISTRY [facility] [address] [place] [address], [place] * US ARTERIAL LOWER EXTREMITY LEFT [...] For Patients: As a result of the Century Cures Act, medical imagingexams and procedure [...] FOR ADD ON (03/17/2024 4:18 AM CDT) Pathologist [facility] TSH 0.23(L) 0.27 - 4.20 uIU/mL 03/17/2024 10:19 PM CDT [facility] Blood BLOOD SPECIMEN / Unknown Venipuncture / Unknown 03/17/2024 4:18 AM CDT 03/17/2024 4:35 AM CDT Narrative [facility] - 03/17/2024 10:19 PM CDT In Adults, TSH values between 5.00 and 10.00 uIU/ml do not necessarily indicate the presence of Hypothyroidism. Correlation with clinical findings such as presence of goiter and/or Thyroperoxidase (TPO) Antibody may be helpful. For more information please refer to YU 2004; 291: 228-238. Shane Ramires DO CHEMISTRY Performing Organization Address City/[facility]/ZIP Co de Phone Number [facility] [address] [place] [address], * T4,FREE (03/17/2024 4:18 AM CDT) [facility] T4,FREE 1.37 0.93 - 1.70 ng/dL 03/17/2024 10:51 PM CDT [facility] Blood BLOOD SPECIMEN / Unknown Venipuncture / Unknown 03/17/2024 4:18 AM CDT 03/17/2024 4:35 AM CDT [employer] CHEMISTRY Performing Organization Address [facility]/ZIP Co de Phone Number [facility] [address] [place] [address], * CK TOTAL (03/17/2024 4:18 AM CDT) Pathologist [facility] CK,TOTAL 133 39 - 308 IU/L 03/17/2024 9:43 PM CDT [facility] Blood BLOOD SPECIMEN / Unknown Venipuncture / Unknown 03/17/2024 4:18 AM CDT 03/17/2024 4:35 AM CDT Shane Ramires DO CHEMISTRY [facility] [address] [place] [address], * CALCIUM IONIZED HOSPITAL DRAW ONLY (03/17/2024 4:18 AM CDT) Only the most recent of4 resultswithin the time period is included. CALCIUM,IONIZE D 1.18 1.15 - 1.27 mmol/L 03/17/2024 4:41 AM CDT [facility] Blood BLOOD SPECIMEN / Unknown Venipuncture / Unknown 03/17/2024 4:18 AM CDT 03/17/2024 4:35 AM CDT Estrella Flores MD CHEMISTRY Performing Organization Address City/[facility]/ZIP Co de Phone Number [facility] [address] [place] [address], * SCAN-CARDIAC STRIP (03/16/2024 7:21 PM CDT) Scanner OTHER * (ABNORMAL) URINALYSIS MICROSCOPIC (03/16/2024 4:32 PM CDT) RBC 0-2 0-2, None Seen /HPF 03/16/2024 4:49 PM CDT [facility] WBC 0-2 0-2, 3-5, None Seen /HPF 03/16/2024 4:49 PM CDT [facility] BACTERIA None Seen None Seen, Rare, Few Bacteria/ HPF 03/16/2024 4:49 PM CDT [facility] EPITHELIAL CELLS None Seen None Seen, Few Epi/HPF 03/16/2024 4:49 PM CDT [facility] HYALINE CASTS 11-25(A) 0-2, 3-5 /LPF 03/16/2024 4:49 PM CDT [facility] Urine URINE SPECIMEN / Unknown Non-Blood / Unknown 03/16/2024 4:32 PM CDT 03/16/2024 4:40 PM CDT Lucio ARMAS URINE [facility] [address] [place] [address], [place] * (ABNORMAL) UA W/ SEDIMENT EXAM REFLEXED PER CRITERIA (03/16/2024 4:32 PM CDT) COLOR Yellow Yellow Color 03/16/2024 4:49 PM CDT [facility] CLARITY Clear Clear Clarity 03/16/2024 4:49 PM CDT [facility] SPECIFIC GRAVITY,URINE 1.015 1.010, 1.015, 1.020, 1.025 03/16/2024 4:49 PM CDT [facility] PH,URINE 5.0(A) 6.0, 7.0, 8.0, 5.5, 6.5, 7.5, 8.5 03/16/2024 4:49 PM CDT [facility] UROBILINOGEN, QUALITATIVE Normal Normal EU/dl 03/16/2024 4:49 PM CDT [facility] PROTEIN, URINE Trace(A) Negative mg/dL 03/16/2024 4:49 PM CDT [facility] GLUCOSE, URINE >=1000(A) Negative mg/dL 03/16/2024 4:49 PM CDT [facility] KETONES,URINE Negative Negative mg/dL 03/16/2024 4:49 PM CDT [facility] BILIRUBIN,URI NE Negative Negative 03/16/2024 4:49 PM CDT [facility] OCCULT BLOOD,URINE Negative Negative 03/16/2024 4:49 PM CDT [facility] NITRITE Negative Negative 03/16/2024 4:49 PM CDT [facility] LEUKOCYTE ESTERASE Negative Negative 03/16/2024 4:49 PM CDT [facility] Urine URINE SPECIMEN / Unknown Non-Blood / Unknown 03/16/2024 4:32 PM CDT 03/16/2024 4:40 PM CDT Lucio ARMAS URINE [facility] [address] [place] [address], * PROCALCITONIN (03/16/2024 4:08 PM CDT) PROCALCITONIN 0.04 ng/ml 03/16/2024 4:59 PM CDT [facility] Blood BLOOD SPECIMEN / Unknown Butterfly / Unknown 03/16/2024 4:08 PM CDT 03/16/2024 4:18 PM CDT Narrative [facility] - 03/16/2024 4:59 PM CDT Procalcitonin [...] Lucio ARMAS SEND OUTS Performing Organization Address City/[facility] Co de Phone Number [facility] [address] [place] [address], * BLOOD CULTURE (03/16/2024 4:08 PM CDT) Only the most recent of2 resultswithin the time period is included. CULTURE No Growth. 03/20/2024 7:10 PM CDT [facility] Blood BLOOD SPECIMEN / Unknown Butterfly / Unknown 03/16/2024 4:08 PM CDT 03/16/2024 4:18 PM CDT Narrative [facility] - 03/20/2024 7:10 PM CDT Low volume blood culture received; possible false negative culture. Lucio ARMAS MICROBIOLOGY Performing Organization Address City/[facility] Co de Phone Number [facility] [address] [place] [phone], * ICD ANALYSIS DUAL WITHOUT REPROGRAM (03/16/2024 3:32 PM CDT) Narrative Marquis Santana MD - 03/16/2024 3:32 PM CDT Cyndi Arnold RN ? 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 All HV pathways have been programmed B>AX. Location of evaluation: [place] [address] Reason for evaluation: Provider Request MEASUREMENTS Atrial [...] charge, 35 J x 6 ? NID: [id number] FINAL BRADYCARDIA PARAMETERS Mode: AAI <=> DDD ??Lower rate: 60 bpm ??Upper rate: 130/130 bpm ?? AV Delay: 180/150 ms ?? Mode Switch: 150 bpm ??Rate Response: Mode switch only (Med/Low, 3/) Atrial - Amplitude: Adaptive 1.25 V ??Pulse [...] 4 months via [employer] remote with annual Bailey or clinic with Dr. Santana each February. Cyndi Arnold, RN Nurse Clinician II [facility] Pacemaker/ICD Clinic Marquis Santana MD CARDIAC SERVICES ORD * EXTRA TUBE LIGHT GREEN (03/16/2024 1:23 PM CDT) Blood BLOOD SPECIMEN / Unknown Non-Lab Venipuncture / Unknown 03/16/2024 1:23 PM CDT 03/16/2024 1:33 PM CDT Estrella Flores MD LABORATORY [facility] [address] [place] [id number], * (ABNORMAL) BLOOD GAS,VENOUS (03/16/2024 1:23 PM CDT) PH, VENOUS 7.31(L) 7.32 - 7.43 03/16/2024 1:36 PM CDT [facility] PCO2, VENOUS 68(H) 41 - 51 mmHg 03/16/2024 1:36 PM CDT [facility] PO2, VENOUS 63(H) 35 - 40 mmHg 03/16/2024 1:36 PM CDT [facility] HCO3,VENOUS 34(H) 22 - 29 mmol/L 03/16/2024 1:36 PM CDT [facility] BASE EXCESS, VENOUS, POCT 5.6(H) -2.0 - 3.0 03/16/2024 1:36 PM CDT [facility] O2 SATURATION, VENOUS 93(H) 70 - 75 % 03/16/2024 1:36 PM CDT [facility] PATIENT TEMPERATURE 37.0 Degrees C 03/16/2024 1:36 PM CDT [facility] Blood VENOUS BLOOD SPECIMEN / Unknown Butterfly / Unknown 03/16/2024 1:23 PM CDT 03/16/2024 1:31 PM CDT Estrella Flores MD CHEMISTRY Performing Organization Address City/[facility]/ZIP Co de Phone Number [facility] [address] [place] [address], [place] * LACTATE VENOUS (03/16/2024 1:22 PM CDT) Only the most recent of3 resultswithin the time period is included. LACTATE,VENOUS 0.8 0.5 - 2.0 mmol/L 03/16/2024 2:38 PM CDT [facility] Blood BLOOD SPECIMEN / Unknown Butterfly / Unknown 03/16/2024 1:22 PM CDT 03/16/2024 1:31 PM CDT Lucio ARMAS CHEMISTRY Performing Organization Address City/[facility]/ZIP Co de Phone Number [facility] [address] [place] [address], * (ABNORMAL) HEMOGLOBIN (03/16/2024 1:22 PM CDT) Only the most recent of8 resultswithin the time period is included. HEMOGLOBIN 11.1(L) 13.5 - 17.5 g/dL 03/16/2024 1:39 PM CDT [facility] MCV 101(H) 80 - 100 fL 03/16/2024 1:39 PM CDT [facility] Blood BLOOD SPECIMEN / Unknown Butterfly / Unknown 03/16/2024 1:22 PM CDT 03/16/2024 1:31 PM CDT Lucio ARMAS HEMATOLOGY Performing Organization Address [facility] Co de Phone Number [facility] [address] [place] [address], * (ABNORMAL) FACTOR 10 CHROMOGENIC (03/16/2024 1:22 PM CDT) FACTOR 10 CHROMOGENIC 41(L) 65 - 130 % 03/16/2024 1:46 PM CDT [facility] Blood BLOOD SPECIMEN / Unknown Butterfly / Unknown 03/16/2024 1:22 PM CDT 03/16/2024 1:31 PM CDT Narrative [facility] - 03/16/2024 1:46 PM CDT Therapeutic Range 20-40% Lucio ARMAS SEND OUTS Performing Organization Address [facility] de Phone Number [facility] [address] [place] [address], * CORTISOL TOTAL (03/16/2024 10:29 AM CDT) CORTISOL,TOTAL 15.0 ug/dL 03/16/2024 1:29 PM CDT [facility] Blood BLOOD SPECIMEN / Unknown Non-Lab Venipuncture / Unknown 03/16/2024 10:29 AM CDT 03/16/2024 10:35 AM CDT Narrative [facility] - 03/16/2024 1:29 PM CDT Cortisol ?Morning Hours ?6:00 ??AM - 10:00 AM ?(4.8-19.5 ug/dL) Cortisol ?Afternoon Hours ??4:00 ??PM - ??8:00 PM ?(2.5-11.9 ug/dL) ? Biotin supplements may cause clinically significant interference for this test assay. ??If interference is suspected, it is strongly recommended that biotin is discontinued for at least one week prior to retesting. Estrella Flores MD CHEMISTRY [facility] [address] [place] [address], * ECHO TTE LIMITED W CONTRAST W COLOR W DOPPLER (03/16/2024 10:23 AM CDT) Only the most recent of2 resultswithin the time period is included. AORTIC VALVE MEAN PG 7 mmHg EJECTION FRACTION 50 - 55% Anatomical Region Laterality Modality Ultrasound 03/16/2024 9:42 AM CDT Narrative 03/16/2024 11:06 AM CDT ECHOCARDIOGRAM RAIN PETTY ? Accession#: ?? [id number] : ?1950 73 years Study Date: ?? 03/16/2024 9:42:01 AM Gender: M ?BP: ? 84/55 mmHg Height: 137.00 cm ?BSA: ?2.42 m? ? ? Weight: 200.00 kg ?Tech: ? OLL ? Referring MD: ESTRELLA FLORES Site: ? [facility] Reading Location: ANW IP Patient Location: Inpatient. Procedure: Limited Echo w/ [...] documentation: 2 ml diluted Definity, lot #[id number], [facility]# [id number] was administered peripherally to enhance visualization of all left ventricular segments. . This study was interpreted by an [facility] accredited facility. ??Final ?? Procedure Note Leonel Montanez MD - 03/16/2024 ECHOCARDIOGRAM RAIN PETTY : 1950 73 years Study Date: 03/16/2024 9:42:01 AM Gender: M BP: 84/55 mmHg Height: 137.00 cm BSA: 2.42 m? ? ? Weight: 200.00 kg Tech: ANGIE Referring MD: ESTRELLA FLORES Site: [facility] Reading Location: ANW Patient Location: Inpatient. Procedure: Limited Echo w/ [...] documentation: 2 ml diluted Definity, lot #[id number], [facility]#[id number] was administered peripherally to enhance visualization of allleft ventricular segments. . This study was interpreted by an [facility] accredited facility. Final Estrella Flores MD ECHO [...] 6-15 ng/L ng/L 03/15/2024 8:14 PM CDT [facility] Blood BLOOD SPECIMEN / Unknown Venipuncture / Unknown 03/15/2024 7:54 PM CDT 03/15/2024 7:56 PM CDT Janina Valero MD CHEMISTRY Performing Organization Address [facility] Co de Phone Number [facility] [address] [place] [address] * EKG 12 LEAD (03/15/2024 6:44 PM [...] NOW QTc 481 ms BEYOND NOW [place] degrees BEYOND NOW R [place] 1 degrees BEYOND NOW T [place] 63 degrees BEYOND NOW 03/15/2024 6:44 PM CDT 03/16/2024 11:14 AM CDT Janina Valero MD EKG ORD Performing Organization Address [facility] Co de Phone Number BEYOND NOW [place], [place] * CT CERVICAL SPINE WO (03/15/2024 [...] PM (Electronically Signed) Procedure Note Gosia Starks, - 03/15/2024 For Patients: As a result [...] sinus. Unremarkable orbits. Procedure Note Gosia Starks, - 03/15/2024 For Patients: As a result [...] NDL PR1 (03/15/2024 1:33 PM CDT) Narrative Fateemh Hunt CRNA - 03/15/2024 1:33 PM CDT [...] Used: set primary IV tubing Fatemeh Hunt JAREN ANESTHESIA PX NOTE ORDERABLES * XR CHEST [...] definite radiopaque foreign body. Procedure Note Krzysztof Ellis DO - 03/15/2024 For Patients: As a [...] ACUTE W/2HR REFLEX (03/15/2024 12:48 PM CDT) TROPONIN T HS 30(H) 6-15 ng/L ng/L 03/15/2024 8:01 PM CDT [facility] Blood BLOOD SPECIMEN / Unknown Venipuncture / Unknown 03/15/2024 12:48 PM CDT 03/15/2024 12:57 PM CDT [facility] LAB[facility] - 03/15/2024 8:01 PM CDT hs-cTnT [...] department patient population. Janina Valero MD CHEMISTRY Performing Organization Address [facility] Co de Phone Number [facility] [address] [place] [address] * Type and Screen (03/15/2024 12:48 PM CDT) Only the most recent of2 resultswithin the time period is included. ABORH O Rh Positive 03/15/2024 1:29 PM CDT [facility] BLOOD BANK ANTIBODY SCREEN Negative Negative 03/15/2024 1:29 PM CDT [facility] BLOOD BANK SPECIMEN EXPIRATION DATE/TIME 03/18/24 23:59 03/15/2024 1:29 PM CDT [facility] BLOOD BANK Blood BLOOD SPECIMEN / Unknown Venipuncture / Unknown 03/15/2024 12:48 PM CDT 03/15/2024 12:57 PM CDT Janina Valero MD BLOOD BANK Performing Organization Address [facility] Co de Phone Number [facility] BLOOD BANK [address] [place] [address] * (ABNORMAL) PROTIME- INR (03/15/2024 12:48 PM CDT) Only the most recent of3 resultswithin the time period is included. INR 2.4(H) <1.3 03/15/2024 1:09 PM CDT [facility] PROTIME 26.0(H) 10.3 - 12.3 sec 03/15/2024 1:09 PM CDT [facility] Blood BLOOD SPECIMEN / Unknown Venipuncture / Unknown 03/15/2024 12:48 PM CDT 03/15/2024 12:57 PM CDT Narrative [facility] - 03/15/2024 1:09 PM [...] is on UFH. Janina Valero MD HEMATOLOGY [facility] [address] [place] [address] * (ABNORMAL) PRO-BNP (03/15/2024 12:48 PM CDT) Only the most recent of4 resultswithin the time period is included. [facility] PRO-BNP 4,187(H) <125 pg/mL 03/15/2024 6:50 PM CDT [facility] Blood BLOOD SPECIMEN / Unknown Venipuncture / Unknown 03/15/2024 12:48 PM CDT 03/15/2024 12:57 PM CDT [facility] LAB[facility]ATORY - 03/15/2024 6:50 PM CDT The [...] failure. ? Janina Valero MD SEND OUTS Performing Organization Address [facility]/ZIP Co de Phone Number [facility] [address] [place] [address] * SCAN-CARDIAC STRIP (02/21/2024 9:16 AM CDT) Scanner OTHER * Platelets AM (02/21/2024 7:50 AM CDT) Only the most recent of3 resultswithin the time period is included. PLATELET COUNT 280 140 - 440 thou/cu mm 02/21/2024 8:10 AM CDT [facility] MPV 8.7 6.5 - 11.0 fL 02/21/2024 8:10 AM CDT [facility] Blood BLOOD SPECIMEN / Unknown Venipuncture / Unknown 02/21/2024 7:50 AM CDT 02/21/2024 8:01 AM CDT Danay Fuchs MD HEMATOLOGY Performing Organization Address City/[facility]/ZIP Co de Phone Number [facility] [address] [place] [address], * (ABNORMAL) WBC AM (02/21/2024 7:50 AM CDT) Only the most recent of2 resultswithin the time period is included. WHITE BLOOD COUNT 12.5(H) 4.5 - 11.0 thou/cu mm 02/21/2024 8:10 AM CDT [facility] TR[facility] LAB[facility] NRBC 0.0 % 02/21/2024 8:10 AM CDT [facility] LAB[facility]AT[facility] LAB[facility]AT[facility] ABS NRBC 0.0 thou /cu mm 02/21/2024 8:10 AM CDT [facility] TRAL LABORATORY Blood BLOOD SPECIMEN / Unknown Venipuncture / Unknown 02/21/2024 7:50 AM CDT 02/21/2024 8:01 AM CDT Danay Fuchs MD HEMATOLOGY Performing Organization Address City/[facility]/ZIP Co de Phone Number [facility] [address] [place] [address], * Magnesium AM (02/21/2024 7:50 AM CDT) Only the most recent of4 resultswithin the time period is included. MAGNESIUM 2.4 1.6 - 2.4 mg/dL 02/21/2024 8:30 AM CDT [facility] Blood BLOOD SPECIMEN / Unknown Venipuncture / Unknown 02/21/2024 7:50 AM CDT 02/21/2024 8:02 AM CDT Tayler Woodward NP CHEMISTRY Performing Organization Address City/[facility]/ZIP Co de Phone Number [facility] [address] [place] [address], * SCAN-CARDIAC STRIP (02/21/2024 4:55 AM CDT) Scanner OTHER * (ABNORMAL) HEMATOCRIT (02/20/2024 1:13 PM CDT) HEMATOCRIT 32.4(L) 37.0 - 53.0 % 02/20/2024 1:30 PM CDT [facility] Blood BLOOD SPECIMEN / Unknown Venipuncture / Unknown 02/20/2024 1:13 PM CDT 02/20/2024 1:19 PM CDT Narrative [facility] - 02/20/2024 1:30 PM CDT Obtain before initiating IV heparin therapy if not done within previous 24 hours. Obtain before initiating IV heparin therapy if not done within previous 24 hours. Obtain before initiating IV heparin therapy if not done within previous 24 hours. Jose G Guzman MD HEMATOLOGY [facility] [address] [place] [address], * (ABNORMAL) BUN (02/20/2024 1:13 PM CDT) Pathologist [facility] BUN 32(H) 8 - 23 mg/dL 02/20/2024 2:37 PM CDT [facility] Blood BLOOD SPECIMEN / Unknown Venipuncture / Unknown 02/20/2024 1:13 PM CDT 02/20/2024 1:19 PM CDT Jose G Guzman MD CHEMISTRY Performing Organization Address City/[facility]/ZIP Co de Phone Number [facility] [address] [place] [address], * (ABNORMAL) CREATININE (02/20/2024 1:13 PM CDT) [facility] eGFR 65(L) >90 mL/min/1.7 3m2 02/20/2024 2:37 PM CDT [facility] Comment:As of 2021, eG FR is calculated by the CKD-EPI creatinine equation without race adjustment. ??eGFR can be influenced by muscle mass, exercise, and diet. ??The reported eGFR is an estimation only and is only applicable if the renal function is stable. CREATININE 1.18 0.70 - 1.20 mg/dL 02/20/2024 2:37 PM CDT [facility] Blood BLOOD SPECIMEN / Unknown Venipuncture / Unknown 02/20/2024 1:13 PM CDT 02/20/2024 1:19 PM CDT Jose G Guzman MD CHEMISTRY [facility] [address] [place] [address], [place] * APTT (02/20/2024 1:13 PM CDT) Pathologist [facility] APTT 35 28 - 36 sec 02/20/2024 1:41 PM CDT [facility] Blood BLOOD SPECIMEN / Unknown Venipuncture / Unknown 02/20/2024 1:13 PM CDT 02/20/2024 1:19 PM CDT Narrative [facility] - 02/20/2024 1:41 PM CDT Therapeutic Range: 57-87 seconds Jose G Guzman MD HEMATOLOGY [facility] [address] [place] [address], * XR PELVIS 1 VIEW (02/20/2024 7:27 AM CDT) Anatomical Region Laterality Modality Pelvis Digital Radiogra phy 02/20/2024 7:47 AM CDT Impressions 02/20/2024 7:47 AM CDT Very subtle left femoral neck fracture is better seen on CT than radiographs. Dictated by Chantell Bobby MD @ Feb 20 2024 ??7:47AM (Electronically Signed) [email or web address] Narrative 02/20/2024 7:47 AM CDT For Patients: [...] @ Feb 20 2024 7:47AM (Electronically Signed) [email or web address] [email or web address] ARMAS [facility] * SCAN-CARDIAC STRIP (02/20/2024 7:02 AM CDT) Scanner OTHER * SCAN-CARDIAC STRIP (02/19/2024 6:40 PM CDT) Scanner OTHER * (ABNORMAL) COMPREHENSIVE BLOOD GAS MIXED VENOUS (02/19/2024 10:03 AM CDT) O2 SATURATION, MEASURED, MIXED VENOUS 63(L) 70 - 75 % 02/19/2024 10:03 AM CDT [facility] LABORATORY-[facility] TRAL LABORATORY PATIENT TEMPERATURE 37.0 Degrees C 02/19/2024 10:03 AM CDT [facility] TRAL LABORATORY HEMOGLOBIN,BLOO D GAS 10.3(L) 13.5 - 17.5 g/dL 02/19/2024 10:03 AM CDT [facility] TRAL LABORATORY Blood BLOOD SPECIMEN / Unknown 02/19/2024 10:03 AM CDT 02/20/2024 8:46 AM CDT Danay Fuchs MD CHEMISTRY [facility] LABORATORY-CEN[facility]AL LABORATORY [address] [place] [address], * CV Procedure to be Performed (02/19/2024 9:55 AM CDT) Narrative Jose G Guzman MD - 02/19/2024 9:55 AM CDT Jose G Guzman MD ? 02/19/2024 10:06 AM [facility] Advanced Heart Failure Procedure Note Right Heart [...] ??Uncomplicated EBL: ??minimal Jose G Guzman MD [facility] Advanced Heart Failure/Transplant Cardiology/[facility] [place] [address] ?? Pager: [phone] Click for [employer] Kathleen Monzon PA PREDATORY ANIMAL EXTERMINATOR ORD * CVL OTHER PROCEDURE (02/19/2024 9:53 AM CDT) Anatomical Region Laterality Modality Other 02/19/2024 9:53 AM CDT Provider Referring CV IMAGING * (ABNORMAL) CBC WITH AUTO DIFFERENTIAL (02/19/2024 7:54 AM CDT) Only the most recent of2 resultswithin the time period is included. WHITE BLOOD COUNT 12.0(H) 4.5 - 11.0 thou/cu mm 02/19/2024 8:39 AM CDT [facility] TRAL LABORATORY RED BLOOD COUNT 3.37(L) 4.30 - 5.90 mil/cu mm 02/19/2024 8:39 AM CDT [facility] TRAL LABORATORY HEMOGLOBIN 10.7(L) 13.5 - 17.5 g/dL 02/19/2024 8:39 AM CDT [facility] TRAL LABORATORY HEMATOCRIT 32.8(L) 37.0 - 53.0 % 02/19/2024 8:39 AM CDT [facility] TRAL LABORATORY MCV 97 80 - 100 fL 02/19/2024 8:39 AM CDT [facility] TR[facility] LABORATORY MCH 31.8 26.0 - 34.0 pg 02/19/2024 8:39 AM CDT [facility] TR[facility] LABORATORY MCHC 32.6 32.0 - 36.0 g/dL 02/19/2024 8:39 AM CDT [facility] TR[facility] LABORATORY RDW 14.6 11.5 - 15.5 % 02/19/2024 8:39 AM CDT [facility] TR[facility] LABORATORY PLATELET COUNT 273 140 - 440 thou/cu mm 02/19/2024 8:39 AM CDT [facility] LABOR[facility] MPV 9.2 6.5 - 11.0 fL 02/19/2024 8:39 AM CDT [facility] LAB[facility]ORY NRBC 0.0 % 02/19/2024 8:39 AM CDT [facility] LABOR[facility] ABS NRBC 0.0 thou /cu mm 02/19/2024 8:39 AM CDT [facility] TR[facility] LABORATORY % NEUT 55.8 % 02/19/2024 8:39 AM CDT [facility] LAB[facility] % LYMPH 25.2 % 02/19/2024 8:39 AM CDT [facility] LAB[facility] % MONO 15.4 % 02/19/2024 8:39 AM CDT [facility] LAB[facility] % EOS 2.1 % 02/19/2024 8:39 AM CDT [facility] LAB[facility] % BASO 0.7 % 02/19/2024 8:39 AM CDT [facility] LAB[facility] % IMMATURE GRAN (METAS,MYELOS,MO OS) 0.8 % 02/19/2024 8:39 AM CDT [facility] LABORATORY ABSOLUTE NEUTROPHILS 6.7 1.7 - 7.0 thou/cu mm 02/19/2024 8:39 AM CDT [facility] TR[facility] LABOR[facility]ORY ABSOLUTE LYMPHOCYTES 3.0(H) 0.9 - 2.9 thou/cu mm 02/19/2024 8:39 AM CDT [facility] LAB[facility] ABSOLUTE MONOCYTES 1.9(H) <0.9 thou/cu mm 02/19/2024 8:39 AM T [facility] TRAL LABOR[facility]ORY ABSOLUTE EOSINOPHILS 0.3 <0.5 thou/cu mm 02/19/2024 8:39 AM T [facility] LAB[facility] ABSOLUTE BASOPHILS 0.1 <0.3 thou/cu mm 02/19/2024 8:39 AM T [facility] LAB[facility] ABSOLUTE IMMATURE GRANULOCYTES(MET ,MYELOS,PROS) 0.1 <0.3 thou/cu mm 02/19/2024 8:39 AM T [facility] TR[facility] LABORATORY Blood BLOOD SPECIMEN / Unknown Venipuncture / Unknown 02/19/2024 7:54 AM CDT 02/19/2024 8:26 AM CDT Danay Fuchs MD HEMATOLOGY [facility] LABORAT[facility]-CEN[facility]AL LABORATORY [address] [place] [address], * SCAN-CARDIAC STRIP (02/19/2024 7:30 AM CDT) [...] Signed) Alba Ha DO US * (ABNORMAL) COMP METABOLIC PANEL (02/17/2024 8:40 PM CDT) SODIUM 135(L) 136 - 145 mmol/L 02/17/2024 9:23 PM CDT [facility] TRAL LABORATORY POTASSIUM 5.3(H) 3.5 - 5.1 mmol/L 02/17/2024 9:23 PM CDT [facility] TRAL LABORATORY CHLORIDE 99 98 - 107 mmol/L 02/17/2024 9:23 PM [facility] TRAL LABORATORY CO2,TOTAL 25 22 - 29 mmol/L 02/17/2024 9:23 PM [facility] TR[facility] LABOR[facility]ORY ANION GAP 11 5 - 18 02/17/2024 9:23 PM [facility] LABOR[facility]ORY GLUCOSE 123(H) 70 - 99 mg/dL 02/17/2024 9:23 PM [facility] LABOR[facility]ORY CALCIUM 8.9 8.8 - 10.2 mg/dL 02/17/2024 9:23 PM [facility] LAB[facility] BUN 70(H) 8 - 23 mg/dL 02/17/2024 9:23 PM [facility] LAB[facility] CREATININE 1.69(H) 0.70 - 1.20 mg/dL 02/17/2024 9:23 PM [facility] TR[facility] LABORATORY BUN/CREAT RATIO 41(H) 10 - 20 9:23 PM [facility] TRAL LABORATORY eGFR 42(L) >90 mL/min/1.7 3m2 02/17/2024 9:23 PM [facility] LABOR[facility]ORY Comment:As of 2021, eG FR is calculated by the CKD-EPI creatinine equation without race adjustment. ??eGFR can be influenced by muscle mass, exercise, and diet. ??The reported eGFR is an estimation only and is only applicable if the renal function is stable. ALBUMIN 3.5(L) 4.0 - 4.9 g/dL 02/17/2024 9:23 PM [facility] TR[facility] LABORATORY PROTEIN,TOTAL 6.2 6.0 - 8.0 g/dL 02/17/2024 9:23 PM [facility] TRAL LABORATORY BILIRUBIN,TOTAL 0.9 0.0 - 1.2 mg/dL 02/17/2024 9:23 PM [facility] TRAL LABORATORY ALK PHOSPHATASE 97 40 - 129 IU/L 02/17/2024 9:23 PM CDT [facility] ALT (SGPT) 24 10 - 50 IU/L 02/17/2024 9:23 PM CDT [facility] AST (SGOT) 42 10 - 50 IU/L 02/17/2024 9:23 PM CDT [facility] TRAL LABORATORY Blood BLOOD SPECIMEN / Unknown Venipuncture / Unknown 02/17/2024 8:40 PM CDT 02/17/2024 8:45 PM CDT Alba Ha DO CHEMISTRY [facility] [address] [place] [address], * (ABNORMAL) LIPID PANEL (01/07/2018 4:35 PM CDT) CHOLESTEROL,TOTAL 174 100 - 199 mg/dL 01/07/2018 6:28 PM CDT [facility] TRIGLYCERIDES 194(H) <150 mg/dL 01/07/2018 6:28 PM CDT [facility] HDL CHOLESTEROL 64 >40 mg/dL 8 6:28 PM CDT [facility] NON-HDL CHOLESTEROL 110 <145 mg/dl 01/07/2018 6:28 PM CDT [facility] CHOL/HDL RATIO 2.72 <4.50 01/07/2018 6:28 PM CDT [facility] LDL CHOLESTEROL 71 <=130 mg/dL 01/07/2018 6:28 PM CDT [facility] PROVIDER ORDERED STATUS RANDOM 01/07/2018 6:28 PM CDT [facility] Blood BLOOD SPECIMEN / Unknown Venipuncture / Unknown 01/07/2018 4:35 PM CDT 01/07/2018 4:39 PM CDT Aba Boo MD CHEMISTRY [address] [address] from Last 3 Months or Most Recently [...] Code Status Discussion: Reviewed Preferences Care Teams Dental Receptionist Relationship Specialty Start Date End Date Aba Boo MD [address] [place] [address] PCP - General Family Practice 11/18/19 Destin Johnston MD [address] [address] Cardiology - CHF Cardiovascular Disease 04/14/20 Nurses, Advanced Heart Failure [address], [place] [address] Advanced Heart Failure/Transplant Card 04/14/20
--- OUTSIDE RECORDS SUMMARY | 2024-03-29 08:00 | XMS_ITS | Clinical Summary ---
Author Organization [facility] Address [address] [address] Care Team Providers Care Missile Control Pilot Name Role Phone Clinician, Not Found MD Primary Care Provider Un available Source Comments You are receiving this document as you are listed as the primary care provider,follow-up provider, or the patient has been referred to you for consultation.This is in compliance with the Medicare and[facility] EHR Incentive Program,which states Providers who transition their patient to another setting of careor provider of care or refers their patient to another provider of care shouldprovide summary care record for each transition of care or referral. [employer] Allergies No known active allergies Medications Medication [...] [facility]. Ascending aorta dilation 06/15/2020 Overview: -09/09/11: S/p [...] 7:10 PM CDT Ancillary Procedure [address] [place] [address] Radiology [address] [place] [address] Sanjay Leach, DO Pain of left hip 02/12/2024 6:50 PM CDT Office Visit [facility] [address] [place] [address] Sanjay Leach, DO Pain of left hip (Primary Dx); Left foot pain 12/30/2023 Telephone [facility] [address] [place], [place] [address] Zakia Carrillo, CULTURE MEDIA LABORATORY ASSISTANT, FORM SETTER [address]AL [address] FORMS Questions from Last 3 Months Social History [...] this topic Medical Devices Implanted Type Area Siebel Solution Architect Device Identifier Shelf Expiration Date Model / Serial / Lot Mohan Bone [employer]omet R 1x40 - [id number] Implanted:Qty: 2 on 06/15/2020 by Sanjay Murrieta MD at [facility] DEVICE Right: [employer] 07/29/2024 [id number] / / [id number] Patella All Poly Ply 41mm - [id number] Implanted:Qty: 1 on 06/15/2020 by Sanjay Murrieta MD at [facility] DEVICE Right: [employer] 06/28/2026 [id number] / / [id number] Comp Str [address] 14x+30 - [id number] Implanted:Qty: 1 on 06/15/2020 by Sanjay Murrieta MD at [facility] DEVICE Right: [employer] 11/26/2029 [id number] / / [id number] Stem Tib 5deg Szh Rt - [id number] Implanted:Qty: 1 on 06/15/2020 by Sanjay Murrieta MD at [facility] DEVICE Right: [employer] 01/26/2029 [id number] / / [id number] Comp Fem Ps Ccr Ps Std Sz12 Rt - [id number] Implanted:Qty: 1 on 06/15/2020 by Sanjay Murrieta MD at [facility] DEVICE Right: [employer] 06/28/2029 [id number] / / [id number] Asf Ps Ve 10mm 1012 Gh Rt - [id number] Implanted:Qty: 1 on 06/15/2020 by Sanjay Murrieta MD at [facility] DEVICE Right: [employer] 04/28/2021 [id number] / / [id number] Procedures Procedure Name Priority Date/Time Associated Diagnosis [...] 2:08 PM 06/17/2020 2:45 PM Care Teams Missile Control Pilot Relationship Specialty Start Date End Date Clinician, Not Found, [place] [address] PCP - General 06/23/20
--- OUTSIDE RECORDS SUMMARY | 2024-03-29 08:00 | XMS_ITS | Encounter Summary ---
Author Organization [facility] Address [address] [place] [address] Care Team Providers Care Medical Physicist Name Role Phone Clinician, Not Found MD Primary Care Provider Un available Reason for Referral * Therapies (Routine) - New Request Specialty Diagnoses / Procedures Referred By Contrashaun paz Referred To Contact Diagnoses Pain of left hip Conner Boudreaux DO [address] [place] [address] Referral ID Status Reason Start Date Expiration Date V isits Requested Visits Authorized [id number] New Request 02/12/2024 02/11/2025 999 999 Scheduling Instructions Your clinician recommended an appointment with [facility]. You can quickly make your appointment online at [email or web address]. You can also call [phone] for help scheduling your appointment. We suggest [...] Diagnoses Left foot pain Conner Boudreaux DO [address] [place] [address] Referral ID Status Reason Start Date Expiration Date V isits Requested Visits Authorized [id number] New Request 02/12/2024 05/13/2025 1 1 Scheduling Instructions Your clinician has recommended an appointment with [facility]. You can quickly make your appointment online at [email or web address]. You can also call [phone] for help scheduling your appointment. We suggest you call your health insurance company about your coverage and benefits for this appointment. Question Answer Appointment Urgency? Non-Urgent Reason for visit? hammer toe/foot pain * Procedure/Equipment (Routine) - Incomplete Specialty Diagnoses / Procedures Referred By Contac t Referred To Contact Diagnoses Pain of left hip Procedures XR Pelvis W Lt Lateral Hip Conner Boudreaux DO [address] [place] [address] [address] Referral ID Status Reason Start Date Expiration Date V isits Requested Visits Authorized [id number] Incomplete 02/12/2024 05/13/2025 1 1 Reason for Visit * Reason Comments LEG PAIN Back of buttocks jay n leg pain since last night Encounter Details Date Type Department Care Team (Late st Contact Info) Description 02/12/2024 6:50 PM CDT Office Visit [facility] [address] [place] [address] Conner Boudreaux DO [address] [facility] [address] [address] Pain of left hip (Primary Dx); Left [...] Schedule your physical therapy appointment by calling [phone]. The following medications were prescribed at your visit : Orders Placed This Encounter Medications HYDROcodone-acetaminophen (NORCO) 5-325 MG tablet Sig: Take 1 Tablet by mouth every 8 hours as needed for Pain. Dispense: 12 Tablet Refill: 0 Medication Refill Requests: Prescription Refill Requests are not filled on Weekends or on Weekdays after 3:00PM For all medication refills: Request a refill using [employer] or contact your Pharmacy documented in this encounter Progress Notes * Conner Boudreaux DO - 02/12/2024 12:00 AM CDT NAME: MERRICK CENTENO CSN: [id number] CLINIC NOTE DATE OF SERVICE: 02/12/2024 : [...] it worse. PAST MEDICAL HISTORY: Reviewed in [facility]. REVIEW OF SYSTEMS: Temperature is [...] is having recurrent symptoms. Recommend physical therapy. [place] for pain relief, heat and massage. CONNER BOUDREAUX DO PARISH/AQS /[id number] documented in this encounter Plan of Treatment [...] hip documented in this encounter Care Teams Medical Physicist Relationship Specialty Start Date End Date Clinician, Not Found, [place] [address] PCP - General 06/23/20 documented as of this encounter
--- OUTSIDE RECORDS SUMMARY | 2024-03-29 08:00 | XMS_ITS | Encounter Summary ---
Author Organization [facility] Address [address], [place] [address] Care Team Providers Care Pattern Changer And Repairer Name Role Phone Clinician, Not Found MD Primary Care Provider Un available Reason for Visit * Reason Comments Questions Encounter Details Date Type Department Care Team (Late st Contact Info) Description 12/30/2023 Telephone [facility] [address] [place], [place] [address] Zakia Carrillo, SALES OFFICE ASSISTANT, MUTUEL CASHIER [address] [place] [address] Questions Social History Tobacco Use Types Packs/Day [...] [place] * Erendira Prince - 12/30/2023 3:02 PM [...] can we send you a message in [employer]? No [Green Coffee Blender/Dobby Loom Fixer: Relay to patient; We make every effort to get back to you sameday, however it may take 1-2 business days depending on the nature of the communication.] documented in this encounter Plan of Treatment Not on file documented as of this encounter Visit Diagnoses Not on filedocumented in this encounter Care Teams Pattern Changer And Repairer Relationship Specialty Start Date End Date Clinician, Not Found, [place] [address] PCP - General 06/23/20 documented as of this encounter
== END 2024-03-29 07:58 | disposition home or self-care (01) ==
LOC: WOUND 07:57
PROVIDERS: PCP Family Medicine; Visit Provider Nurse Practitioner Family
DX: I87.332 Chronic venous hypertension (idiopathic) with ulcer and inflammation of left lower extremity (principal); L97.822 Non-pressure chronic ulcer of other part of left lower leg with fat layer exposed; L97.222 Non-pressure chronic ulcer of left calf with fat layer exposed; I89.0 Lymphedema, not elsewhere classified; B95.61 Methicillin susceptible Staphylococcus aureus infection as the cause of diseases classified elsewhere; B95.2 Enterococcus as the cause of diseases classified elsewhere
CPT/HCPCS: 11042; 11045; 96372; G0463; J0696

== ENCOUNTER 2024-04-07 12:55 | Outpatient (CLI) | payer MEDICARE, BC, SELFPAY ==
--- OUTSIDE RECORDS SUMMARY | 2024-04-07 12:57 | XMS_ITS | Clinical Summary ---
Author Organization [facility] and Replaced By [facility] Address [address] [address] Phone Care Team Providers Care Plastic Finisher Name Role Phone Aba Boo MD Primary Care Provider Allergies No known active allergies Encounters Date Type Department Care Team Description 04/02/2024 3:26 PM CDT - 04/02/2024 4:45 PM CDT Emergency [facility] Emergency Department [address] [place] [address] Lee Frye, Pacemaker complications, initial encounter (Primary Dx) Discharge Disposition: Home and/or Self Care 04/02/2024 7:00 AM CDT Cardiac Device Remote [facility] [address] [place] [address] [place], [facility] [place] Monitor Sinoatrial node dysfunction (HCC) (Primary Dx); Chronic systolic congestive heart failure (HCC); Cardiac defibrillator in place 04/02/2024 Travel from Last 3 Months Social History Tobacco Use Types Packs/Day Years Used Date Smoking Tobacco: Never Assessed EH IP Custom IPV Answer Date Recorded Do you feel UNSAFE in any of your personal relationships with your family members or any other acquaintances? No 2023 Sex and Gender Information Value Date Recorded Sex Assigned at Not on file Gender Identity Not on file Sexual Orientation Not on file Job Start Date Occupation Industry Not on file Not on file Not on file Last Filed Vital Signs Vital Sign Reading Time Taken Comments Blood Pressure 96/64 04/02/2024 4:00 PM CDT Pulse 96 04/02/2024 4:00 PM CDT Temperature 36.9 ??C (98.5 ??F) 04/02/2024 2:03 PM CD T Respiratory Rate 19 04/02/2024 4:00 PM CDT Oxygen Saturation 87% 04/02/2024 4:00 PM CDT Inhaled Oxygen Concentration - - Weight 131.5 kg (290 lb) 04/02/2024 2:03 PM CDT Height 200.7 cm (6' 7) 04/02/2024 2:03 PM CDT Body Mass Index 32.67 04/02/2024 2:03 PM CDT Plan of Treatment Health Maintenance Due Date Last Done Comments CT Colonography 1950 Cologuard 1950 Colonoscopy 1950 Colorectal Cancer Screening 1950 FIT/FOBT 1950 Sigmoidoscopy 1950 PERTUSSIS (Standing Order) 1969 TETANUS (Standing Order) 1969 Shingrix (Zoster recombinant ) vaccine (Standing Order) (1 of 2) 2000 RSV Vaccination (60+ yrs) (Abrysvo/Arexvy) (1 - 1-dose 60+ series) 2010 Pneumococcal Vaccine: 65+ yr s (Standing Order) (1 of 1 - PCV) 2015 Influenza Vaccine Seasonal (Standing Order) (#1) 2024 HPV Vaccine (Standing Order) Aged Out No longer eligible based on patient's age to complete this topic Hepatitis B Vaccine (Standin g Order) Aged Out No longer eligible b ased on patient's age to complete this topic Care Teams Plastic Finisher Relationship Specialty Start Date End Date Aba Boo MD [facility] [address] [place] [address] PCP - General Family Medicine 04/02/24
--- OUTSIDE RECORDS SUMMARY | 2024-04-07 12:57 | XMS_ITS | Encounter Summary ---
Author Organization [facility] Address [address] [address] Phone Care Team Providers Care Yardmaster Name Role Phone Aba Boo MD Primary Care Provider [phone] Reason for Visit * Reason Comments Cardiac Device Check Encounter Details Date Type Department Care Team (Latest Contact Info) Description 04/02/2024 7:00 AM CDT Cardiac Device Remote [facility] [address] [place] [id number] Ancillary, [facility] Pacer Remote Monitor Sinoatrial node dysfunction (HCC) (Primary Dx); Chronic systolic congestive heart failure (HCC); Cardiac defibrillator in place Social History Tobacco Use Types Packs/Day Years [...] file Not on file Not on file documented as of this encounter Functional Status Functional Status Response Date of Assess ment Patient's Vision Adequate to Safely Complete Daily Activities Yes 04/02/2024 Patient's Memory Adequate to Safely Complete Daily Activities Yes 04/02/2024 Cognitive Status Response Date of Assessm ent Patient's Judgment Adequate to Safely Complete Daily Activities Yes 04/02/2024 documented as of this encounter Progress Notes * Clarence Cuenca, RN - 04/02/2024 4:10 PM CDT Images from the original note were not included. Attached media from the original note were not included. 04/02/24 4430 Remote Impression and Plan Place of Service [place];[facility];In person Remote Monitoring;E.R.;ICD Final Impression Normal Remote Monitor with Events RVP > 40% NO Events/Comments In person care link from [employer]. Pt has been 100% AT/AF since 03/16/24 with ventricular rates 80-120s bpm for majority of time. Presenting egm supporting AT/AF VS 80-120 bpm. No ventricular events logged. Minimally MORTGAGE FUNDER: 4.3%. Updated Dr. Frye via secure chat. Pt's device is beeping due to unsuccessful [employer] Alert transmission. Pt needs to follow up with [facility] technical support and device clinic they follow with. Follow Up Plan follow-up as scheduled Plan of Care Full report under Media/CV tab Anticoagulation (No updated med list) Battery 2.8 yrs Atrial Fib [place] % 100 RVP % 4.3 Heart Rate Histograms Adequate histograms Non-sustained 0 E-grams Support (appears to be) Atrial Fibrillation;Atrial Flutter Presenting Rhythm Atrial Fibrillation/ Flutter;VS Presenting Heart Rate (80-123) Appropriate shocks or ATP No Device Synopsis Most recent data compared.;Alerts reviewed.;EGM rhythm strips reviewed for dysrhythmias.;Ectopic beats and mode switching assessed.;Results available for patient per a [employer] call notification and can be viewed in [employer]. Presenting rhythm: Associated attestation - Sanjay Alvarez DO - 04/04/2024 7:25 AM CDT I have personally reviewed the device interrogation and agree with findings. Additional Comments: Battery status good Lead trends stable Sanjay Alvarez DO Cardiac Electrophysiology 04/04/2024 7:25 AM documented in this encounter Plan of Treatment Scheduled Orders Name Type Priority Associated Diagnoses Orde r Schedule ICD DEVICE INTERROGAT REMOTE Cardiology Routine Sinoatrial node dysfunction (HCC) Chronic systolic congestive heart failure (HCC) Cardiac defibrillator in place Ordered: 04/02/2024 PM/ICD REMOTE TECH SERV, UP TO 90 DAYS Cardiology Routine Sinoatrial node dysfunction (HCC) Chronic systolic congestive heart failure (HCC) Cardiac defibrillator in place Ordered: 04/02/2024 documented as of this encounter Visit Diagnoses Diagnosis Sinoatrial node dysfunction (HCC)- Primary Sinoatrial node dysfunction Chronic systolic congestive heart failure (HCC) Chronic systolic heart failure Cardiac defibrillator in place Automatic implantable cardiac defibrillator in situ documented in this encounter Care Teams Yardmaster Relationship Specialty Start Date End Date Aba Boo MD [facility] & [address] [phone] PCP - General Family Medicine 04/02/24 documented as of this encounter
--- OUTSIDE RECORDS SUMMARY | 2024-04-07 12:57 | XMS_ITS | Clinical Summary ---
Author Organization [employer] [facility] Address [place], [place] [address] Care Team Providers Care Business Improvement Manager Name Role Phone Aba oBo MD Primary Care Provider + Destin Johnston [...] type, unspecified whether angina present, unspecified whether kashia or transplanted heart Take 1 Tablet (10 [...] once daily. Dose increased by PCP (outside [facility]) 10/24. 4 Active sotaloL (BETAPACE) 120 mg [...] 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 RochelleAP 4 03/15/20 24 Discontinued(P harmacist change per medication history (E-cancel not sent)) wheelchairIndicat ions:Closed fracture of neck of left femur, initial encounter () Wheelchair: Bariatric (over 250 lbs) with leg [...] call our team with a status update: [phone] Tablet 4 03/19/20 24 Discontinued(* IP [...] primary and secondary concerned persons: Spouse Alexus Centeno [phone] Daughter Zuri [phone] Hypothyroidism 09/10/2011 Atrial fibrillation Overview: - 07/31/11: [...] Positive blood culture 10/18/202302/16 Hypotension 10/11/2023 02/17/2024 [facility] (current) use of anticoagulants 09/18/2011 12/03/2015 Osteoarth NOS-ankle 04/22/2007 12/03/19 16 Hypertension (HTN) 6 A-fib 07/03/2011 Overview: controlled on diltiazem Ascending aorta dilatation 1 11/26/2013 Overview: 09/09/11: S/p Aortic Valve Sparing Root Repair with a 34 mm Valsalva Graft and Left Sided MAZE with Ligation of Left Atrial Appendage by Dr. Ashton. Hypothyroidism 02/17/2024 Encounters Date Type Department Care Team Description 04/07/2024 Telephone [facility] [address] [place] [address] Marquis Santana MD Schedule Cardioversion 04/05/2024 10:30 AM CDT Office Visit [address] [address] Kathleen Boyer PA Follow Up (follow up) 04/05/2024 Travel 04/02/2024 Telephone [facility] [address] [place] [address] Susana Joyner I, RN Device Check 04/02/2024 Telephone [facility] [address] [place] [address] Destin Johnston MD Concerns (Defib beeping ) 03/30/2024 9:55 AM CDT Ancillary Procedure [address] [facility] [address] [place] [address] 03/30/2024 9:50 AM CDT Ancillary Procedure [address] [place] [address] 03/30/2024 9:30 AM CDT Office Visit [facility] [address] [place] [address] 400 [place] [address] Riaz Peterson MD Hip Pain/problem (left hip pain); Chest Injury (left side rib pain) 03/30/2024 Travel 03/29/2024 Telephone [facility] [address] [facility] [address] [place] [address] Riaz Peterson MD Questions 03/22/2024 Telephone [facility] [address] [facility] [address] [place] [phone] Destin Johnston MD Follow Up (BP update) 03/19/2024 Orders Only [facility] [address] [facility] [address] [place] [address] Destin Johnston MD <No scans attached> 03/15/2024 10:28 PM CDT - 03/19/2024 11:22 AM CDT Hospital Encounter [facility] [address] [place] [address] Alan De Santiago MD Kiberenge, MD Kaleb Monroy, MD Keyla Mcgarry, DO Gerardo Lundberg, Lee Kennedy MD [facility] Left displaced femoral neck fracture (HC) (Primary Dx); Closed fracture of multiple ribs of left side, sequela; Closed fracture of neck of left femur with routine healing, subsequent encounter; Acute on chronic HFrEF (heart failure with reduced ejection fraction) (HC) Discharge Disposition: Home Self Care 03/15/2024 6:00 PM CDT Hospital Encounter [facility] [address] [place] [address] [facility] 03/15/2024 1:49 PM CDT Anesthesia Event [facility] [address] [place] [address] HuntFatemehJAREN 03/15/2024 12:13 PM CDT - 03/15/2024 9:18 PM CDT Emergency [facility] [address] [place] [address] Janina Valero MD Ball, Julieanne Patricia, MD Closed fracture of multiple ribs of left side, initial encounter (Primary Dx); Hypoxia; Hypotension, unspecified hypotension type; Laceration of multiple sites of left lower extremity, initial encounter Discharge Disposition: Crit Acc Hosp w Planned Readmission 03/15/2024 Telephone [facility] [address] [facility] [address] [place] [phone] Erendira Sotomayor NP Letter (Request letter faxed on 03-12-24 be re-faxed as didn't receive the whole document.) 03/15/2024 Travel 03/12/2024 Telephone [facility] [address] [place] [address] Erendira Sotomayor NP Questions 03/11/2024 8:35 AM CDT Ancillary Procedure [address] [employer] [address] [place] [address] 03/11/2024 8:30 AM CDT Office Visit [address] [facility] [address] [place] [address] Ellie Martinez PA Hip Pain/problem (Non-operative follow-up visit: non-displaced left femoral neck fracture) 03/11/2024 Travel 03/10/2024 Telephone [facility] [address] [place] [address] Erendira Sotomayor NP Medication Management 03/09/[address] [place] [address] Riaz Peterson MD 03/02/2024 1:00 PM CDT Office Visit [facility] [address] [facility] [place] [address] Erendira Sotomayor, LIDYA CV Heart Failure Est (EST PT. STAT [facility] F/U, LABS PRIOR AT PENDING SALE TO [facility], H/O CHRONIC HFrEF) 03/02/2024 Travel 03/01/2024 Home Care Visit [facility] [address] [place] [address] Valentina Green, PT CARE COORDINATION 02/26/2024 11:40 AM CDT Ancillary Procedure [facility] [address] [place] [address] [address] [place] [phone] 02/26/2024 11:00 AM CDT Office Visit [facility] [address] [facility] [address] [place] [phone] Riaz Peterson MD Hip Pain/problem (left hip pain) 02/26/2024 4:30 AM CDT Home Care Visit [facility] [address] [place] [address] Katharine Nieves, OT OT - MISSED VISIT 02/26/2024 Home Care Visit [facility] [address] [place] [address] Valentina Green, PT EPISODE DISCHARGE 02/26/2024 Travel 02/23/2024 9:30 AM CDT Home Care Visit [facility] [address] [place] [address] Brenda Moses, RN SN - OASIS START OF CARE 02/23/2024 Telephone [facility] [address] [place] [phone] Brenda Moses, senior cyber security analyst 02/23/2024 Plan of Care Documentation [facility] [address] [place] [address] 02/17/2024 8:19 PM CDT - 02/21/2024 11:03 AM CDT Hospital Encounter [facility] [address] [place] [address] Alba Ha, Rah Mcneal, DO Palafox, Lucio Lyon, DO Palacios, MD Shila Sampson, Danay Dickey MD [facility] Hematoma of left lower extremity, initial encounter (Primary Dx); Weakness; Weight gain; Cardiovascular symptoms; Closed fracture of neck of left femur, initial encounter (HC); Chronic HFrEF (heart failure with reduced ejection fraction) (HC); Cellulitis of left lower extremity Discharge Disposition: Home Health 02/17/2024 Travel 02/10/2024 9:30 AM CDT Office Visit [facility] [address] [facility] [address] [place] [phone] Destin Johnston MD Office Visit (Appointment Note//IN PERSON F/U VISIT. LABS PRIOR//) 02/10/2024 8:30 AM CDT Orders Only [facility] [address] [facility] [address] [place] [phone] Lab 02/10/2024 Travel 01/29/2024 Refill [facility] [address] [facility] [address] [place] [phone] Destin Johnston MD Refill Request 01/19/2024 1:30 PM CDT Orders Only [address] [address] Lab, [facility] 01/19/2024 Travel 01/16/2024 Orders Only [facility] [address] [facility] [address] [place] [phone] Destin Johnston MD <No scans attached> from Last 3 Months [...] Sign Reading Time Taken Comments Blood Pressure 112/82 04/05/2024 10:43 AM CDT Pulse 90 04/05/2024 10:43 AM CDT patient states they know that they are in Afib Temperature 36.4 ??C (97.5 ??F) 03/19/2024 4 :00 AM CDT Respiratory Rate 16 03/19/2024 4:00 AM CDT Oxygen Saturation 93% 03/19/2024 10: 15 AM CDT Inhaled Oxygen Concentration - - Weight 137.6 kg (303 lb 4.8 oz) 04/05/2024 10:43 AM CDT Height 200.7 cm (6' 7) 03/15/2024 10:4 0 PM CDT Body Mass Index 34.17 03/15/2024 10:40 PM CDT Plan of Treatment Upcoming Encounters Date Type Department Care Team (Late st Contact Info) Description 04/13/2024 8:00 AM CDT Office Visit [facility] [address] [facility] [address] [place] [address] Destin Johnston MD [address] [place] [address] 04/22/2024 1:00 PM CDT Appointment [facility] [address] [place] [address] Danielle Florez, OT [address] [place] [address] 04/27/2024 9:45 AM CDT Office Visit [facility] [place] [address] [facility] [address] [place] [phone] Riaz Peterson MD [address] [facility] [address] [place] [address] 05/03/2024 8:30 AM CDT Office Visit [facility] [address] [place] [address] Kathleen Boyer PA [address] [place] [address] Health Maintenance Due Date Last Done Comments [...] history exists COVID-19 vaccine series (2 - 3-24 season) 2023 06/27/2021 Influenza for age 65+ 05/30/2024 06/24/2013 BMI (ht and wt on same day) for age 18+ 03/02/2025 03/02/2024, 02/10/2024, 05/27/2023, Additional history exists AAA screening age 65-74 Completed 03/15/2024 Medical Devices Implanted Type Area Political Scientist Device Identifier Shelf Expiration Date Model / Serial / Lot Graft Valsalva 34mm - [id number] Implanted:Qty: 1 on 09/09/2011 at [facility] [employer] [id number] / / Procedures Procedure Name Priority Date/Time Associated Diagnosis Comments XR HIP 2 OR 3 VIEWS W PELVIS LEFT Routine 03/30/2024 10:10 AM CDT Left displaced femoral neck fracture (HC) XR CHEST 2 VIEWS PA AND LATERAL Routine 03/30/2024 10:02 AM CDT Closed fracture of multiple ribs of left side with routine healing SCAN-CARDIAC STRIP 03/19/2024 9: 21 AM CDT HEPATIC FUNCTION PANEL CARLOS 4 4:50 AM CDT BASIC METABOLIC PANEL CARLOS 03/19/2024 4:50 AM CDT CBC W PLT NO DIFF CARLOS 03/19/2024 4:5 0 AM CDT SCAN-CARDIAC STRIP 03/19/2024 12 :01 AM CDT GLUCOSE METER Timed 03/18/2024 8:36 PM CDT GLUCOSE METER Timed 03/18/2024 5:46 PM CDT GLUCOSE METER Timed 03/18/2024 12:29 PM CDT GLUCOSE METER Timed 03/18/2024 8:03 AM CDT HEPATIC FUNCTION PANEL CARLOS 4 5:57 AM CDT BASIC METABOLIC PANEL CARLOS [...] CHROMOGENIC CARLOS 03/16/2024 1:22 PM CDT HEMOGLOBIN CAROLS 03/16/2024 1:22 PM CDT LACTATE VENOUS Today [...] PELVIS W STAT 03/15/2024 2:02 PM CDT [facility] AN IV START Routine 03/15/2024 1:33 PM CDT [facility] AN IV START Routine 03/15/2024 1:33 PM CDT [facility] AN IV START Routine 03/15/2024 1:33 PM CDT [facility] AN IV START Routine 03/15/2024 1:33 [...] 2 OR 3 VIEWS W PELVIS LEFT (03/30/2024 10:10 AM CDT) Only the most recent of5 resultswithin the time period is included. Anatomical Region Laterality Modality HIPS, HIPL, Pelvis Computed Radi ography 04/02/2024 2:43 PM CDT Impressions 04/02/2024 2:43 PM CDT 1. ??No change in mild deformity of the left femoral neck. 2. ??Degenerative changes of both hips. Dictated by Albin Hunt MD @ Mar ??5 2023 ??2:43PM (Electronically Signed) [email or web address] Narrative 04/02/2024 2:43 PM CDT For Patients: ??As a result of the Cures Act, medical imaging exams and procedure reports are released immediately into your electronic medical record. ??You may view this report before your referring provider. ??If you have questions, please contact your health care provider. HISTORY: Left femoral neck fracture. TECHNIQUE: AP pelvis and two views of the left hip. COMPARISON: 03/17/2024. FINDINGS: Degenerative changes of both hips. No change in the mild deformity of the left femoral neck. No change in alignment. Procedure Note Albin Hunt MD - 04/02/2024 For Patients: As a result of the Cures Act, medical imagingexams and procedure reports are released immediately into your electronicmedical record. You may view this report before your referring provider.If you have questions, please contact your health care provider. HISTORY: Left femoral neck fracture. TECHNIQUE: AP pelvis and two views of the left hip. COMPARISON: 03/17/2024. FINDINGS: Degenerative changes of both hips. No change in the mild deformity of theleft femoral neck. No change in alignment. IMPRESSION: 1. No change in mild deformity of the left femoral neck. 2. Degenerative changes of both hips. Dictated by Albin Hunt MD @ Apr 02 2024 2:43PM (Electronically Signed) [email or web address] Riaz Peterson MD GENERAL IMAGING * XR CHEST 2 VIEWS PA AND LATERAL (03/30/2024 10:02 AM CDT) Anatomical Region Laterality Modality CHEST, THORAX, Lung, HEART Compu artie Radiography 03/30/2024 3:21 PM CDT Impressions 03/30/2024 3:21 PM CDT 1. ??No pneumothorax. 2. ??Posterior costophrenic angle pleural thickening versus trace pleural effusions. 3. ??No acute lung infiltrate. 4. ??Left-sided rib fractures and costal cartilage disruption present on the recent CT are not well seen radiographically. Dictated by Albin Hunt MD @ Mar ??2 2023 ??3:21PM (Electronically Signed) [email or web address] Medical Narrative 03/30/2024 3:21 PM CDT For Patients: ??As a result of the Cures Act, medical imaging exams and procedure reports are released immediately into your electronic medical record. ??You may view this report before your referring provider. ??If you have questions, please contact your health care provider. HISTORY: Left-sided rib fractures with routine healing. TECHNIQUE: Two views of the chest. COMPARISON: CT from 03/15/2024. FINDINGS: Sternotomy. Cardiomegaly. AICD with leads terminating within the right atrium and right ventricle. No pulmonary vascular congestion. No pneumothorax. Blunting of the posterior costophrenic angles bilaterally reflecting pleural thickening versus trace pleural effusions. No lung consolidation. Degenerative changes of the spine. The fractures of the left 6th, 7th and 8th ribs seen on the prior CT are not well seen radiographically. Additionally, there was disruption of costal cartilage of the left 9th and 10th ribs on that CT which is not well evaluated radiographically. Procedure Note Albin Hunt MD - 03/30/2024 For Patients: As a result of the Cures Act, medical imagingexams and procedure reports are released immediately into your electronicmedical record. You may view this report before your referring provider.If you have questions, please contact your health care provider. HISTORY: Left-sided rib fractures with routine healing. TECHNIQUE: Two views of the chest. COMPARISON: CT from 03/15/2024. FINDINGS: Sternotomy. Cardiomegaly. AICD with leads terminating within the rightatrium and right ventricle. No pulmonary vascular congestion. Nopneumothorax. Blunting of the posterior costophrenic angles bilaterallyreflecting pleural thickening versus trace pleural effusions. No lungconsolidation. Degenerative changes of the spine. The fractures of the left 6th, 7th and 8th ribs seen on the prior CT arenot well seen radiographically. Additionally, there was disruption ofcostal cartilage of the left 9th and 10th ribs on that CT which is notwell evaluated radiographically. IMPRESSION: 1. No pneumothorax. 2. Posterior costophrenic angle pleural thickening versus trace pleuraleffusions. 3. No acute lung infiltrate. 4. Left-sided rib fractures and costal cartilage disruption present onthe recent CT are not well seen radiographically. Dictated by Albin Hunt MD @ Mar 30 2024 3:21PM (Electronically Signed) [email or web address] Riaz Peterson MD GENERAL IMAGING * SCAN-CARDIAC STRIP (03/19/2024 9:21 AM CDT) Scanner OTHER * (ABNORMAL) CBC W PLT NO DIFF (03/19/2024 4:50 AM CDT) Only the most recent of5 resultswithin the time period is included. WHITE BLOOD COUNT 10.1 4.5 - 11.0 thou/cu mm 03/19/2024 5:23 AM CDT [facility] RED BLOOD COUNT 3.48(L) 4.30 - 5.90 mil/cu mm 03/19/2024 5:23 AM CDT [facility] HEMOGLOBIN 10.2(L) 13.5 - 17.5 g/dL 03/19/2024 5:23 AM CDT [facility] HEMATOCRIT 33.9(L) 37.0 - 53.0 % 03/19/2024 5:23 AM CDT [facility] MCV 97 80 - 100 fL 03/19/2024 5:23 AM CDT [facility] MCH 29.3 26.0 - 34.0 pg 03/19/2024 5:23 AM CDT [facility] MCHC 30.1(L) 32.0 - 36.0 g/dL 03/19/2024 5:23 AM CDT [facility] RDW 14.8 11.5 - 15.5 % 03/19/2024 5:23 AM CDT [facility] PLATELET COUNT 227 140 - 440 thou/cu mm 03/19/2024 5:23 AM CDT [facility] MPV 9.4 6.5 - 11.0 fL 03/19/2024 5:23 AM CDT [facility] NRBC 0.0 % 03/19/2024 5:23 AM CDT [facility] ABS NRBC 0.0 thou /cu mm 03/19/2024 5:23 AM CDT [facility] Blood BLOOD SPECIMEN / Unknown Venipuncture / Unknown 03/19/2024 4:50 AM CDT 03/19/2024 5:14 AM CDT Varghese Mckenna MD HEMATOLOGY [facility] [address] [place] [address], * (ABNORMAL) HEPATIC FUNCTION PANEL (03/19/2024 4:50 AM CDT) Only the most recent of4 resultswithin the time period is included. ALBUMIN 3.3(L) 4.0 - 4.9 g/dL 03/19/2024 5:44 AM CDT [facility] PROTEIN,TOTAL 6.1 6.0 - 8.0 g/dL 03/19/2024 5:44 AM CDT [facility] BILIRUBIN,TOTAL 0.5 0.0 - 1.2 mg/dL 03/19/2024 5:44 AM CDT [facility] BILIRUBIN,DIRECT 0.2 0.0 - 0.3 mg/dL 03/19/2024 5:44 AM CDT [facility] BILIRUBIN,INDIRE CT 0.3 0.2 - 0.8 mg/dL 03/19/2024 5:44 AM CDT [facility] ALK PHOSPHATASE 122 40 - 129 IU/L 03/19/2024 5:44 AM CDT [facility] ALT (SGPT) 37 10 - 50 IU/L 03/19/2024 5:44 AM CDT [facility] AST (SGOT) 56(H) 10 - 50 IU/L 03/19/2024 5:44 AM CDT [facility] Blood BLOOD SPECIMEN / Unknown Venipuncture / Unknown 03/19/2024 4:50 AM CDT 03/19/2024 5:14 AM CDT Varghese Mckenna MD CHEMISTRY [facility] [address] [place] [address], * (ABNORMAL) BASIC METABOLIC PANEL (03/19/2024 4:50 AM CDT) Only the most recent of12 resultswithin the time period is included. SODIUM 139 136 - 145 mmol/L 03/19/2024 5:44 AM CDT [facility] POTASSIUM 3.9 3.5 - 5.1 mmol/L 03/19/2024 5:44 AM CDT [facility] CHLORIDE 100 98 - 107 mmol/L 03/19/2024 5:44 AM CDT [facility] CO2,TOTAL 33(H) 22 - 29 mmol/L 03/19/2024 5:44 AM CDT [facility] ANION GAP 6 5 - 18 03/19/2024 5:44 AM CDT [facility] GLUCOSE 140(H) 70 - 99 mg/dL 03/19/2024 5:44 AM CDT [facility] CALCIUM 8.9 8.8 - 10.2 mg/dL 03/19/2024 5:44 AM CDT [facility] BUN 30(H) 8 - 23 mg/dL 03/19/2024 5:44 AM CDT [facility] CREATININE 0.87 0.70 - 1.20 mg/dL 03/19/2024 5:44 AM CDT [facility] BUN/CREAT RATIO 34(H) 10 - 20 5:44 AM CDT [facility] eGFR >90 >90 mL/min/1.7 3m2 03/19/2024 5:44 AM CDT [facility] Comment:As of 2021, eG [...] CDT Varghese Mckenna MD [facility] [address] [place] [address], * SCAN-CARDIAC STRIP (03/19/2024 12:01 AM CDT) Scanner OTHER * (ABNORMAL) GLUCOSE METER (03/18/2024 8:36 PM CDT) Only the most recent of17 resultswithin the time period is included. [facility] GLUCOSE METER 172(H) 65 - 100 mg/dL 03/18/2024 11:27 PM CDT [facility] Blood BLOOD SPECIMEN / Unknown 03/18/2024 8:36 PM CDT 03/18/2024 11:27 PM CDT Lee Carrillo MD CHEMISTRY [facility] [address] [place] [address], [place] * US ARTERIAL LOWER EXTREMITY LEFT [...] PM (Electronically Signed) Lucio ARMAS US * SCAN-CARDIAC STRIP (03/17/2024 7:15 AM CDT) Scanner OTHER * (ABNORMAL) TSH FOR ADD ON (03/17/2024 4:18 AM CDT) TSH 0.23(L) 0.27 - 4.20 uIU/mL 03/17/2024 10:19 PM CDT [facility] Blood BLOOD SPECIMEN / Unknown Venipuncture / Unknown 03/17/2024 4:18 AM CDT 03/17/2024 4:35 AM CDT Narrative [facility] - 03/17/2024 10:19 PM CDT In Adults, TSH values between 5.00 and 10.00 uIU/ml do not necessarily indicate the presence of Hypothyroidism. Correlation with clinical findings such as presence of goiter and/or Thyroperoxidase (TPO) Antibody may be helpful. For more information please refer to YU 2004; 291: 228-238. Shane Ramires DO CHEMISTRY Performing Organization Address [facility] Co de Phone Number [facility] [address] [place] [address], * T4,FREE (03/17/2024 4:18 AM CDT) Pathologist [facility] T4,FREE 1.37 0.93 - 1.70 ng/dL 03/17/2024 10:51 PM CDT [facility] Blood BLOOD SPECIMEN / Unknown Venipuncture / Unknown 03/17/2024 4:18 AM CDT 03/17/2024 4:35 AM CDT Shane Ramires CHEMISTRY Performing Organization Address [facility] de Phone Number [facility] [address] [place] [address], [place] * CK TOTAL (03/17/2024 4:18 AM CDT) Pathologist [facility] CK,TOTAL 133 39 - 308 IU/L 03/17/2024 9:43 PM CDT [facility] Blood BLOOD SPECIMEN / Unknown Venipuncture / Unknown 03/17/2024 4:18 AM CDT 03/17/2024 4:35 AM CDT Shane Rosales [employer] CHEMISTRY Performing Organization Address [facility] Co de Phone Number [facility] [address] [id number], [place] * CALCIUM IONIZED HOSPITAL DRAW ONLY (03/17/2024 4:18 AM CDT) Only the most recent of4 resultswithin the time period is included. Pathologist [facility] CALCIUM,IONIZE D 1.18 1.15 - 1.27 mmol/L 03/17/2024 4:41 AM CDT [facility] Blood BLOOD SPECIMEN / Unknown Venipuncture / Unknown 03/17/2024 4:18 AM CDT 03/17/2024 4:35 AM CDT Estrella Flores MD CHEMISTRY Performing Organization Address City/[facility]/ZIP Co de Phone Number [facility] [address] [address], [place] * SCAN-CARDIAC STRIP (03/16/2024 7:21 PM CDT) Scanner OTHER * (ABNORMAL) URINALYSIS MICROSCOPIC (03/16/2024 4:32 PM CDT) RBC 0-2 0-2, None Seen /HPF 03/16/2024 4:49 PM CDT [facility] WBC 0-2 0-2, 3-5, None Seen /HPF 03/16/2024 4:49 PM CDT [facility] BACTERIA None Seen None Seen, Rare, Few Bacteria/ HPF 03/16/2024 4:49 PM CDT [facility] EPITHELIAL CELLS None Seen None Seen, Few Epi/HPF 03/16/2024 4:49 PM CDT [facility] HYALINE CASTS 11-25(A) 0-2, 3-5 /LPF 03/16/2024 4:49 PM CDT [facility] Urine URINE SPECIMEN / Unknown Non-Blood / Unknown 03/16/2024 4:32 PM CDT 03/16/2024 4:40 PM CDT Lucio ARMAS URINE Performing Organization Address City/[facility]/ZIP Co de Phone Number [facility] [address] [place] [address], [place] * (ABNORMAL) UA W/ SEDIMENT EXAM REFLEXED PER CRITERIA (03/16/2024 4:32 PM CDT) COLOR Yellow Yellow Color 03/16/2024 4:49 PM CDT [facility] CLARITY Clear Clear Clarity 03/16/2024 4:49 PM CDT [facility] SPECIFIC GRAVITY,URINE 1.015 1.010, 1.015, 1.020, 1.025 03/16/2024 4:49 PM CDT [facility] PH,URINE 5.0(A) 6.0, 7.0, 8.0, 5.5, 6.5, 7.5, 8.5 03/16/2024 4:49 PM CDT [facility] UROBILINOGEN, QUALITATIVE Normal Normal EU/dl 03/16/2024 4:49 PM CDT [facility] PROTEIN, URINE Trace(A) Negative mg/dL 03/16/2024 4:49 PM CDT [facility] GLUCOSE, URINE >=1000(A) Negative mg/dL 03/16/2024 4:49 PM CDT [facility] KETONES,URINE Negative Negative mg/dL 03/16/2024 4:49 PM CDT [facility] BILIRUBIN,URI NE Negative Negative 03/16/2024 4:49 PM CDT [facility] OCCULT BLOOD,URINE Negative Negative 03/16/2024 4:49 PM CDT [facility] NITRITE Negative Negative 03/16/2024 4:49 PM CDT [facility] LEUKOCYTE ESTERASE Negative Negative 03/16/2024 4:49 PM CDT [facility] Urine URINE SPECIMEN / Unknown Non-Blood / Unknown 03/16/2024 4:32 PM CDT 03/16/2024 4:40 PM CDT Lucio ARMAS URINE [facility] [address] [place] [address], * PROCALCITONIN (03/16/2024 4:08 PM CDT) PROCALCITONIN 0.04 ng/ml 03/16/2024 4:59 PM CDT [facility] Blood BLOOD SPECIMEN / Unknown Butterfly / Unknown 03/16/2024 4:08 PM CDT 03/16/2024 4:18 PM CDT [facility]ATORY - 03/16/2024 4:59 PM CDT Procalcitonin [...] Lucio ARMAS SEND OUTS Performing Organization Address [facility] Co de Phone Number [facility] [address] [place] [address], * BLOOD CULTURE (03/16/2024 4:08 PM CDT) Only the most recent of2 resultswithin the time period is included. CULTURE No Growth. 03/20/2024 7:10 PM CDT [facility] Blood BLOOD SPECIMEN / Unknown Butterfly / Unknown 03/16/2024 4:08 PM CDT 03/16/2024 4:18 PM CDT Narrative [facility] - 03/20/2024 7:10 PM CDT Low volume blood culture received; possible false negative culture. Lucio ARMAS MICROBIOLOGY Performing Organization Address [facility] de Phone Number [facility] [address] [place] [address], * ICD ANALYSIS DUAL WITHOUT REPROGRAM (03/16/2024 3:32 PM CDT) Narrative Marquis Santana MD - 03/16/2024 3:32 PM CDT Cyndi Arnold RN ? 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 All HV pathways have been programmed B>AX. Location of evaluation: [facility] - [id number] Reason for evaluation: Provider Request MEASUREMENTS Atrial [...] 4 months via [employer] remote with annual [place] or clinic with Dr. Santana each February. Cyndi Arnold, RN Nurse Clinician II [facility] Pacemaker/ICD Clinic Marquis Santana MD CARDIAC SERVICES ORD * EXTRA TUBE LIGHT GREEN (03/16/2024 1:23 PM CDT) Blood BLOOD SPECIMEN / Unknown Non-Lab Venipuncture / Unknown 03/16/2024 1:23 PM CDT 03/16/2024 1:33 PM CDT Estrella Flores MD [facility]ORY [facility] [address] [place] [address], * (ABNORMAL) BLOOD GAS,VENOUS (03/16/2024 1:23 PM CDT) PH, VENOUS 7.31(L) 7.32 - 7.43 03/16/2024 1:36 PM CDT [facility] PCO2, VENOUS 68(H) 41 - 51 mmHg 03/16/2024 1:36 PM CDT [facility] PO2, VENOUS 63(H) 35 - 40 mmHg 03/16/2024 1:36 PM CDT [facility] HCO3,VENOUS 34(H) 22 - 29 mmol/L 03/16/2024 1:36 PM CDT [facility] BASE EXCESS, VENOUS, POCT 5.6(H) -2.0 - 3.0 03/16/2024 1:36 PM CDT [facility] O2 SATURATION, VENOUS 93(H) 70 - 75 % 03/16/2024 1:36 PM CDT [facility] PATIENT TEMPERATURE 37.0 Degrees C 03/16/2024 1:36 PM CDT [facility] Blood VENOUS BLOOD SPECIMEN / Unknown Butterfly / Unknown 03/16/2024 1:23 PM CDT 03/16/2024 1:31 PM CDT Estrella Flores MD CHEMISTRY Performing Organization Address [facility] Co de Phone Number [facility] [address] [place] [address], [place] * LACTATE VENOUS (03/16/2024 1:22 PM CDT) Only the most recent of3 resultswithin the time period is included. Pathologist [facility] LACTATE,VENOUS 0.8 0.5 - 2.0 mmol/L 03/16/2024 2:38 PM CDT [facility] Blood BLOOD SPECIMEN / Unknown Butterfly / Unknown 03/16/2024 1:22 PM CDT 03/16/2024 1:31 PM CDT Lucio ARMAS CHEMISTRY Performing Organization Address [facility] Phone Number [facility] [address] [place] [address], [place] * (ABNORMAL) HEMOGLOBIN (03/16/2024 1:22 PM CDT) Only the most recent of8 resultswithin the time period is included. [facility] HEMOGLOBIN 11.1(L) 13.5 - 17.5 g/dL 03/16/2024 1:39 PM CDT [facility] MCV 101(H) 80 - 100 fL 03/16/2024 1:39 PM CDT [facility] Blood BLOOD SPECIMEN / Unknown Butterfly / Unknown 03/16/2024 1:22 PM CDT 03/16/2024 1:31 PM CDT Lucio ARMAS HEMATOLOGY Performing Organization Address [facility] Co de Phone Number [facility] [address] [place] [address], * (ABNORMAL) FACTOR 10 CHROMOGENIC (03/16/2024 1:22 PM CDT) [facility] FACTOR 10 CHROMOGENIC 41(L) 65 - 130 % 03/16/2024 1:46 PM CDT [facility] Blood BLOOD SPECIMEN / Unknown Butterfly / Unknown 03/16/2024 1:22 PM CDT 03/16/2024 1:31 PM CDT Narrative [facility] - 03/16/2024 1:46 PM CDT Therapeutic Range 20-40% Lucio ARMAS SEND OUTS Performing Organization Address [facility] Co de Phone Number [facility] [address] [address], * CORTISOL TOTAL (03/16/2024 10:29 AM CDT) CORTISOL,TOTAL 15.0 ug/dL 03/16/2024 1:29 PM CDT [facility] Blood BLOOD SPECIMEN / Unknown Non-Lab Venipuncture / Unknown 03/16/2024 10:29 AM CDT 03/16/2024 10:35 AM CDT Narrative [facility] - 03/16/2024 1:29 PM CDT Cortisol ?Morning Hours ?6:00 ??AM - 10:00 AM ?(4.8-19.5 ug/dL) Cortisol ?Afternoon Hours ??4:00 ??PM - ??8:00 PM ?(2.5-11.9 ug/dL) ? Biotin supplements may cause clinically significant interference for this test assay. ??If interference is suspected, it is strongly recommended that biotin is discontinued for at least one week prior to retesting. Estrella Flores MD CHEMISTRY Performing Organization Address [facility] Co de Phone Number [facility] [address] [place] [address], * ECHO TTE LIMITED W CONTRAST W COLOR W DOPPLER (03/16/2024 10:23 AM CDT) Only the most recent of2 resultswithin the time period is included. AORTIC VALVE MEAN PG 7 mmHg EJECTION FRACTION 50 - 55% Anatomical Region Laterality Modality Ultrasound 03/16/2024 9:42 AM CDT Narrative 03/16/2024 11:06 AM CDT ECHOCARDIOGRAM RAIN CENTENO ? Accession#: ?? [id number] : ?1950 73 years Study Date: ?? 03/16/2024 9:42:01 AM Gender: M ?BP: ? 84/55 mmHg Height: 137.00 cm ?BSA: ?2.42 m? ? ? Weight: 200.00 kg ?Tech: ? OLL ? Referring MD: ESTRELLA FLORES Site: ? [facility] Reading Location: [facility] Patient Location: Inpatient. Procedure: Limited Echo w/ [...] documentation: 2 ml diluted Definity, lot #[id number], [facility]# [id number] was administered peripherally to enhance visualization of all left ventricular segments. . This study was interpreted by an [facility] accredited facility. ??Final ?? Procedure Note Leonel Montanez MD - 03/16/2024 ECHOCARDIOGRAM RAIN CENTENO : 1950 73 years Study Date: 03/16/2024 9:42:01 AM Gender: M BP: 84/55 mmHg Height: 137.00 cm BSA: 2.42 m? ? ? Weight: 200.00 kg Tech: ANGIE Referring MD: ESTRELLA FLORES Site: [facility] Reading Location: [facility] Patient Location: Inpatient. Procedure: Limited Echo w/ [...] documentation: 2 ml diluted Definity, lot #[id number], [facility]#[id number] was administered peripherally to enhance visualization of allleft ventricular segments. . This study was interpreted by an [facility] accredited facility. Final Estrella Flores [...] (HS) ONE TIME (03/15/2024 7:54 PM CDT) [facility] TROPONIN T HS 27(H) 6-15 ng/L ng/L 03/15/2024 8:14 PM CDT [facility] Blood BLOOD SPECIMEN / Unknown Venipuncture / Unknown 03/15/2024 7:54 PM CDT 03/15/2024 7:56 PM CDT Janina Valero MD CHEMISTRY Performing Organization Address City/State/[facility] Co de Phone Number [facility] [address] [place] [address] * EKG 12 LEAD (03/15/2024 6:44 PM CDT) [facility] Interpretation Atrial fibrillation with premature ventricular or [...] NOW QTc 481 ms BEYOND NOW P Carrizozo degrees BEYOND NOW R Carrizozo 1 degrees BEYOND NOW T Carrizozo 63 degrees BEYOND NOW 03/15/2024 6:44 PM CDT 03/16/2024 11:14 AM CDT Janina Valero MD EKG ORD BEYOND NOW [place], [place] * CT CERVICAL SPINE WO (03/15/2024 [...] 2:35:04 PM (Electronically Signed) Procedure Note Gosia Starks DO - 03/15/2024 For Patients: As a [...] as low as reasonably achievable. Dictated by Goisa Starks MD @ 03/15/2024 2:35:04 PM (Electronically [...] right sphenoid sinus. Unremarkable orbits. Procedure Note Gosai Starks, - 03/15/2024 For Patients: As a [...] CDT No acute osseous abnormality. Dictated by Krzysztfo Ellis MD @ 03/15/2024 1:41:49 PM (Electronically [...] ng/L ng/L 03/15/2024 8:01 PM CDT [facility] Blood BLOOD SPECIMEN / Unknown Venipuncture / Unknown 03/15/2024 12:48 PM CDT 03/15/2024 12:57 PM CDT Narrative [facility] - 03/15/2024 8:01 PM CDT hs-cTnT [...] low risk in emergency department patient population. aJnina Valero MD CHEMISTRY [facility] [address] [place] [address] * Type and Screen (03/15/2024 12:48 PM CDT) Only the most recent of2 resultswithin the time period is included. ABORH O Rh Positive 03/15/2024 1:29 PM CDT [facility] BLOOD BANK ANTIBODY SCREEN Negative Negative 03/15/2024 1:29 PM CDT [facility] BLOOD BANK SPECIMEN EXPIRATION DATE/TIME 03/18/24 23:59 03/15/2024 1:29 PM CDT [facility] BLOOD BANK Blood BLOOD SPECIMEN / Unknown Venipuncture / Unknown 03/15/2024 12:48 PM CDT 03/15/2024 12:57 PM CDT Janina Valero MD BLOOD BANK Performing Organization Address [facility] de Phone Number [facility] BLOOD BANK [address] [place] [address] * (ABNORMAL) PROTIME- INR (03/15/2024 12:48 PM CDT) Only the most recent of3 resultswithin the time period is included. INR 2.4(H) <1.3 03/15/2024 1:09 PM CDT [facility] PROTIME 26.0(H) 10.3 - 12.3 sec 03/15/2024 1:09 PM CDT [facility] Blood BLOOD SPECIMEN / Unknown Venipuncture / Unknown 03/15/2024 12:48 PM CDT 03/15/2024 12:57 PM CDT Narrative [facility] - 03/15/2024 1:09 PM [...] is on UFH. Janina Valero MD HEMATOLOGY Performing Organization Address [facility] Co de Phone Number [facility] [address] [place] [address] * (ABNORMAL) PRO-BNP (03/15/2024 12:48 PM CDT) Only the most recent of4 resultswithin the time period is included. PRO-BNP 4,187(H) <125 pg/mL 03/15/2024 6:50 PM CDT [facility] Blood BLOOD SPECIMEN / Unknown Venipuncture / Unknown 03/15/2024 12:48 PM CDT 03/15/2024 12:57 PM CDT Narrative [facility] - 03/15/2024 6:50 PM CDT The [...] failure. ? Janina Valero MD SEND OUTS [facility] [address] [place] [address] * SCAN-CARDIAC STRIP (02/21/2024 9:16 AM CDT) Scanner OTHER * Platelets AM (02/21/2024 7:50 AM CDT) Only the most recent of3 resultswithin the time period is included. PLATELET COUNT 280 140 - 440 thou/cu mm 02/21/2024 8:10 AM CDT [facility] MPV 8.7 6.5 - 11.0 fL 02/21/2024 8:10 AM CDT [facility] Blood BLOOD SPECIMEN / Unknown Venipuncture / Unknown 02/21/2024 7:50 AM CDT 02/21/2024 8:01 AM CDT Danay Fuchs MD HEMATOLOGY Performing Organization Address City/[facility]/ZIP Co de Phone Number [facility] [address] [place] [address], [place] * (ABNORMAL) WBC AM (02/21/2024 7:50 AM CDT) Only the most recent of2 resultswithin the time period is included. WHITE BLOOD COUNT 12.5(H) 4.5 - 11.0 thou/cu mm 02/21/2024 8:10 AM CDT [facility] NRBC 0.0 % 02/21/2024 8:10 AM CDT [facility] ABS NRBC 0.0 thou /cu mm 02/21/2024 8:10 AM CDT [facility] Blood BLOOD SPECIMEN / Unknown Venipuncture / Unknown 02/21/2024 7:50 AM CDT 02/21/2024 8:01 AM CDT Danay Fuchs MD HEMATOLOGY [facility] [address] [place] [address], [place] * Magnesium AM (02/21/2024 7:50 AM CDT) Only the most recent of4 resultswithin the time period is included. MAGNESIUM 2.4 1.6 - 2.4 mg/dL 02/21/2024 8:30 AM CDT [facility] Blood BLOOD SPECIMEN / Unknown Venipuncture / Unknown 02/21/2024 7:50 AM CDT 02/21/2024 8:02 AM CDT Tayler Woodward NP CHEMISTRY Performing Organization Address [facility] Co de Phone Number [facility] [address] [place] [address], * SCAN-CARDIAC STRIP (02/21/2024 4:55 AM CDT) Scanner OTHER * (ABNORMAL) HEMATOCRIT (02/20/2024 1:13 PM CDT) HEMATOCRIT 32.4(L) 37.0 - 53.0 % 02/20/2024 1:30 PM CDT [facility] Blood BLOOD SPECIMEN / Unknown Venipuncture / Unknown 02/20/2024 1:13 PM CDT 02/20/2024 1:19 PM CDT Narrative [facility] - 02/20/2024 1:30 PM CDT Obtain before initiating IV heparin therapy if not done within previous 24 hours. Obtain before initiating IV heparin therapy if not done within previous 24 hours. Obtain before initiating IV heparin therapy if not done within previous 24 hours. Jose G Guzman MD HEMATOLOGY Performing Organization Address [facility] Co de Phone Number [facility] [address] [place] [address], * (ABNORMAL) BUN (02/20/2024 1:13 PM CDT) BUN 32(H) 8 - 23 mg/dL 02/20/2024 2:37 PM CDT [facility] Blood BLOOD SPECIMEN / Unknown Venipuncture / Unknown 02/20/2024 1:13 PM CDT 02/20/2024 1:19 PM CDT Jose G Guzman MD CHEMISTRY Performing Organization Address City/[facility]/ZIP Co de Phone Number [facility] [address] [place] [address], * (ABNORMAL) CREATININE (02/20/2024 1:13 PM CDT) eGFR 65(L) >90 mL/min/1.7 3m2 02/20/2024 2:37 PM CDT [facility] Comment:As of 2021, eG FR is calculated by the CKD-EPI creatinine equation without race adjustment. ??eGFR can be influenced by muscle mass, exercise, and diet. ??The reported eGFR is an estimation only and is only applicable if the renal function is stable. CREATININE 1.18 0.70 - 1.20 mg/dL 02/20/2024 2:37 PM CDT [facility] Blood BLOOD SPECIMEN / Unknown Venipuncture / Unknown 02/20/2024 1:13 PM CDT 02/20/2024 1:19 PM CDT Jose G Guzman MD CHEMISTRY Performing Organization Address [facility] Co de Phone Number [facility] [address] [place] [address], [place] * APTT (02/20/2024 1:13 PM CDT) Pathologist [facility] APTT 35 28 - 36 sec 02/20/2024 1:41 PM CDT [facility] Blood BLOOD SPECIMEN / Unknown Venipuncture / Unknown 02/20/2024 1:13 PM CDT 02/20/2024 1:19 PM CDT Narrative [facility] - 02/20/2024 1:41 PM CDT Therapeutic Range: 57-87 seconds Jose G Guzman MD HEMATOLOGY Performing Organization Address City/[facility] Co de Phone Number [facility] [address] [place] [address], [place] * XR PELVIS 1 VIEW (02/20/2024 7:27 AM CDT) Anatomical Region Laterality Modality Pelvis Digital Radiogra phy 02/20/2024 7:47 AM CDT Impressions 02/20/2024 7:47 AM CDT Very subtle left femoral neck fracture is better seen on CT than radiographs. Dictated by Chantell Bobby MD @ Feb 20 2024 ??7:47AM (Electronically Signed) [email or web address] Narrative 02/20/2024 7:47 AM CDT For Patients: [...] @ Feb 20 2024 7:47AM (Electronically Signed) [email or web address] Ellie ARMAS [facility] * SCAN-CARDIAC STRIP (02/20/2024 7:02 AM CDT) Scanner OTHER * SCAN-CARDIAC STRIP (02/19/2024 6:40 PM CDT) Scanner OTHER * (ABNORMAL) COMPREHENSIVE BLOOD GAS MIXED VENOUS (02/19/2024 10:03 AM CDT) O2 SATURATION, MEASURED, MIXED VENOUS 63(L) 70 - 75 % 02/19/2024 10:03 AM CDT [facility] PATIENT TEMPERATURE 37.0 Degrees C 02/19/2024 10:03 AM CDT [facility] HEMOGLOBIN,BLOO D GAS 10.3(L) 13.5 - 17.5 g/dL 02/19/2024 10:03 AM CDT [facility] Blood BLOOD SPECIMEN / Unknown 02/19/2024 10:03 AM CDT 02/20/2024 8:46 AM CDT Danay Fuchs MD [facility]STRY [facility] [address] [place] [address], * CV Procedure to be Performed (02/19/2024 9:55 AM CDT) Narrative Jose G Guzman MD - 02/19/2024 9:55 AM CDT Jose G Guzman MD ? 02/19/2024 10:06 AM [facility] Advanced Heart Failure Procedure Note [...] the end of the procedure. ??[facility] for full list of medications [...] ??Uncomplicated EBL: ??minimal Jose G Guzman MD [facility] Advanced Heart Failure/Transplant Cardiology/[facility] [place] [address] ?? Pager: [phone] Click [email or web address] Kathleen ARMAS PSYCHOLOGISTS ORD * CVL OTHER PROCEDURE (02/19/2024 9:53 AM CDT) Anatomical Region Laterality Modality Other 02/19/2024 9:53 AM CDT Provider Referring CV IMAGING * (ABNORMAL) CBC WITH AUTO DIFFERENTIAL (02/19/2024 7:54 AM CDT) Only the most recent of2 resultswithin the time period is included. WHITE BLOOD COUNT 12.0(H) 4.5 - 11.0 thou/cu mm 02/19/2024 8:39 AM CDT [facility] RED BLOOD COUNT 3.37(L) 4.30 - 5.90 mil/cu mm 02/19/2024 8:39 AM [facility] HEMOGLOBIN 10.7(L) 13.5 - 17.5 g/dL 02/19/2024 8:39 AM [facility] HEMATOCRIT 32.8(L) 37.0 - 53.0 % 02/19/2024 8:39 AM [facility] MCV 97 80 - 100 fL 02/19/2024 8:39 AM [facility] MCH 31.8 26.0 - 34.0 pg 02/19/2024 8:39 AM [facility] MCHC 32.6 32.0 - 36.0 g/dL 02/19/2024 8:39 AM [facility] RDW 14.6 11.5 - 15.5 % 02/19/2024 8:39 AM [facility] PLATELET COUNT 273 140 - 440 thou/cu mm 02/19/2024 8:39 AM [facility] MPV 9.2 6.5 - 11.0 fL 02/19/2024 8:39 AM [facility] NRBC 0.0 % 02/19/2024 8:39 AM [facility] ABS NRBC 0.0 thou /cu mm 02/19/2024 8:39 AM [facility] % NEUT 55.8 % 02/19/2024 8:39 AM [facility] % LYMPH 25.2 % 02/19/2024 8:39 AM [facility] % MONO 15.4 % 02/19/2024 8:39 AM [facility] % EOS 2.1 % 02/19/2024 8:39 AM [facility] % BASO 0.7 % 02/19/2024 8:39 AM [facility] % IMMATURE GRAN (METAS,MYELOS,RI OS) 0.8 % 02/19/2024 8:39 AM CDT [facility] ABSOLUTE NEUTROPHILS 6.7 1.7 - 7.0 thou/cu mm 02/19/2024 8:39 AM CDT [facility] ABSOLUTE LYMPHOCYTES 3.0(H) 0.9 - 2.9 thou/cu mm 02/19/2024 8:39 AM CDT [facility] ABSOLUTE MONOCYTES 1.9(H) <0.9 thou/cu mm 02/19/2024 8:39 AM CDT [facility] ABSOLUTE EOSINOPHILS 0.3 <0.5 thou/cu mm 02/19/2024 8:39 AM CDT [facility] ABSOLUTE BASOPHILS 0.1 <0.3 thou/cu mm 02/19/2024 8:39 AM CDT [facility] ABSOLUTE IMMATURE GRANULOCYTES(MET ,MYELOS,PROS) 0.1 <0.3 thou/cu mm 02/19/2024 8:39 AM CDT [facility] Blood BLOOD SPECIMEN / Unknown Venipuncture / Unknown 02/19/2024 7:54 AM CDT 02/19/2024 8:26 AM CDT Danay Fuchs MD HEMATOLOGY [facility] [address] [place] [address], * SCAN-CARDIAC STRIP (02/19/2024 7:30 AM CDT) [...] x 1.7 x 3.1 cm. Dictated by iDaz Arora MD @ 02/17/2024 9:12:13 PM (Electronically [...] - 145 mmol/L 02/17/2024 9:23 PM CDT [facility] POTASSIUM 5.3(H) 3.5 - 5.1 mmol/L 02/17/2024 9:23 PM CDT [facility] CHLORIDE 99 98 - 107 mmol/L 02/17/2024 9:23 PM CDT [facility] CO2,TOTAL 25 22 - 29 mmol/L 02/17/2024 9:23 PM CDT [facility] ANION GAP 11 5 - 18 02/17/2024 9:23 PM CDT [facility] GLUCOSE 123(H) 70 - 99 mg/dL 02/17/2024 9:23 PM CDT [facility] CALCIUM 8.9 8.8 - 10.2 mg/dL 02/17/2024 9:23 PM CDT [facility] BUN 70(H) 8 - 23 mg/dL 02/17/2024 9:23 PM CDT [facility] CREATININE 1.69(H) 0.70 - 1.20 mg/dL 02/17/2024 9:23 PM T [facility] BUN/CREAT RATIO 41(H) 10 - 20 9:23 PM CDT [facility] eGFR 42(L) >90 mL/min/1.7 3m2 02/17/2024 9:23 PM T [facility] Comment:As of 2021, eG FR is calculated by the CKD-EPI creatinine equation without race adjustment. ??eGFR can be influenced by muscle mass, exercise, and diet. ??The reported eGFR is an estimation only and is only applicable if the renal function is stable. ALBUMIN 3.5(L) 4.0 - 4.9 g/dL 02/17/2024 9:23 PM CDT [facility] PROTEIN,TOTAL 6.2 6.0 - 8.0 g/dL 02/17/2024 9:23 PM CDT [facility] BILIRUBIN,TOTAL 0.9 0.0 - 1.2 mg/dL 02/17/2024 9:23 PM CDT [facility] ALK PHOSPHATASE 97 40 - 129 IU/L 02/17/2024 9:23 PM T [facility] ALT (SGPT) 24 10 - 50 IU/L 02/17/2024 9:23 PM CDT [facility] AST (SGOT) 42 10 - 50 IU/L 02/17/2024 9:23 PM T [facility] Blood BLOOD SPECIMEN / Unknown Venipuncture / Unknown 02/17/2024 8:40 PM CDT 02/17/2024 8:45 PM CDT Alba Ha DO CHEMISTRY [facility] [address] [place] [address], * (ABNORMAL) LIPID PANEL (01/07/2018 4:35 PM [...] MD CHEMISTRY [facility] [address] [place] [address] from Last 3 Months or Most Recently [...] Code Status Discussion: Reviewed Preferences Care Teams Business Improvement Manager Relationship Specialty Start Date End Date Aba Boo MD [address] [place] [address] PCP - General Family Practice 11/18/19 Destin Johnston MD [address] [place] [address] [phone] Cardiology - CHF Cardiovascular Disease 04/14/20 Nurses, Advanced Heart Failure [address] [place] [id number] Advanced Heart Failure/Transplant Card 04/14/20
--- OUTSIDE RECORDS SUMMARY | 2024-04-07 12:57 | XMS_ITS | Encounter Summary ---
Author Organization [facility] Address [address] [address] Phone Care Team Providers Care School Librarian Name Role Phone Aba Boo MD Primary Care Provider [phone] Reason for Visit * Reason Comments Pacemaker Problem Encounter Details Date Type Department Care Team (Late st Contact Info) Description 04/02/2024 3:26 PM CDT - 04/02/2024 4:45 PM CDT Emergency [facility] Emergency Department [address] [place] [address] [id number] Lee Frye, DO [address] [place] [address] [phone] Pacemaker complications, initial encounter (Primary Dx) Discharge Disposition: Home and/or Self Care Social History Tobacco Use Types Packs/Day Years [...] Mass Index 32.67 04/02/2024 2:03 PM CDT documented in this encounter Functional Status Functional Status Response Date of Assess ment Patient's Vision Adequate to Safely Complete Daily Activities Yes 04/02/2024 Patient's Memory Adequate to Safely Complete Daily Activities Yes 04/02/2024 Cognitive Status Response Date of Assessm ent Patient's Judgment Adequate to Safely Complete Daily Activities Yes 04/02/2024 documented as of this encounter Discharge Instructions * Discharge Instructions* Lee Frye DO - 04/02/2024 4:29 PM CDT Follow-up with [employer] if symptoms persist. documented in this encounter Discharge Disposition Disposition Code Departure Means Destination Home and/or Self Intermediate documented in this encounter ED Notes * Eunice Bob RN - 04/02/2024 4:43 PM CDT Pt stable at time of discharge. Copy of AVS provided. Pt verbalizes understanding of discharge teaching. * Lee Frye DO - 04/02/2024 4:29 PM CDT Patient: Merrick Petty Means of Arrival: Car Chief Complaint: Pacemaker Problem History of Present Illness: HPI Patient is a 73-year-old male present emerged part with concerns for possible pacemaker problem. Patient patient states that he had a pacemaker for a 78 years. Reports that he believes his pacemaker has been beeping at him. He reports that this happens approximately once per week. Patient states that he contacted his cardiology service and was advised to present to the emergency department. He denies any chest pain. Denies fevers or chills. No reported palpitations. Denies any lightheadednessor dizziness. Denies any other concerns at this time. Review of Systems A 10 point review of systems was performed and all other systems were reviewed and negative unless noted above. No Known Allergies Prior to Admission Medication List No Medications Reported Past Medical History: No past medical history on file. Past Surgical History: No past surgical history on file. Family History: No family history on file. Social History: Exam: Initial Vitals Most Recent Vitals Temp: 98.5 ??F (36.9 ??C) (04/02/24 1403) Temp: 98.5 ??F (36.9 ??C) (04/02/24 1403) Pulse: 106 (04/02/24 1403) Pulse: 100 (04/02/24 1535) Resp: 16 (04/02/24 1403) Resp: 20 (04/02/24 1535) BP: 112/68 (04/02/24 1403) BP: 119/78 (04/02/24 1535) SpO2: 94 % (04/02/24 1403) SpO2: 92 % (04/02/24 1535) Weight: 131.5 kg (290 lb) (04/02/24 1403) Physical Exam: Physical Exam GENERAL: Alert and oriented x 3, NAD HEENT: NC/AT. PERRLA, EOMFI. Nares patent bilaterally. NECK: Supple. Trachea midline. CHEST: CTA bilaterally, no wheezes or rales. Palpable cardiac device. HEART: Mildly tachycardic and irregularly irregular. Without murmur. No gallops or rubs. ABDOMEN: Soft/NT/ND/active bowel sounds x 4. EXTREMITIES: Distal pulses intact x 4. No peripheral edema bilateral lower extremities. NEURO: CN II-XII grossly intact. Strength 5/5 in extremities x 4. No focal neurological deficits. SKIN: No rashes or obvious skin lesions. LYMPH: No lymphadenopathy noted in neck or axilla Psych: Patient expresses no suicidal or homicidal ideation Lab Results: No results found for this visit on 04/02/24. Imaging Results: Imaging Results None Palpitations/ Dysrhythmia Differential Diagnosis: A-Fib, A-flutter, PSVT, V- tach, V-fib, and Pacemaker malfunction. Emergency Department Course: Patient is a 73 old male presenting to the emergency department with concerns for pacemaker problem. Afebrile and hemodynamically stable on arrival. No prior encounters for chart review. Broad differential certainly considered. Pacemaker was interrogated. Per pacemaker advertising representative the pacemaker is working appropriately. The reason the pacemaker is beeping is that it is not transmitting appropriately. Patient is on vacation and does not have his transmitter with him. He was advised to contact [employer] if there are further issues. He expressed understanding. Discharged in stable condition. Medications - No data to display Procedures: Procedures Medical Decision Making Assessment: Pacemaker complications, initial encounter (Primary) Plan: Discharge Prescriptions None Disposition: ED Disposition ED Disposition Discharge Condition Stable Comment [facility] thanks you for allowing us to assist you with your healthcare needs. This document contains patient education materials and information regarding your injury/illness. *If you need copies of your x-rays for a f ollow up appointment please call [phone] to arrangefor molded goods spot picker. If you had an IV in place during your stay, please continue to monitor the site for the next 48 hours. Report any redness, swelling, drainage, or fever to your primary care phys ician. Discharge Instructions Follow-up with [employer] if symptoms persist. ExitCare Instructions None Lee Frye DO 04/02/24 1632 * Evangelina Wadsworth RN - 04/02/2024 2:01 PM CDT Pacemaker beeping off and on x 1 month. Requesting to have pacemaker interrogated. documented in this encounter Plan of Treatment Scheduled Orders Name Type Priority Associated Diagnoses Order Schedule IN PERSON PACEMAKER ICD REMOTE MONITOR Non-Invasive Cardiology Lab STAT One Time for 1 Occurrences starting 04/02/2024 until 04/02/2024 documented as of this encounter Visit Diagnoses Diagnosis Pacemaker complications, initial encounter- Primary documented in this encounter Care Teams School Librarian Relationship Specialty Start Date End Date Aba Boo MD [facility] [address] [place] [address] PCP - General Family Medicine 04/02/24 documented as of this encounter
--- OUTSIDE RECORDS SUMMARY | 2024-04-07 12:57 | XMS_ITS | Encounter Summary ---
Author Organization [facility] Address [address] [address] Phone Care Team Providers Care Garbage Truck Dispatcher Name Role Phone Aba Boo MD Primary Care Provider [phone] Encounter Details Date Type Department Care Team (Latest Contact Info) Description 04/02/2024 Travel Social History Tobacco Use Types Packs/Day Years [...] Yes 04/02/2024 documented as of this encounter Plan of Treatment Not on file documented as of this encounter Visit Diagnoses Not on filedocumented in this encounter Care Teams Garbage Truck Dispatcher Relationship Specialty Start Date End Date Aba Boo MD [facility] & [address] [address] PCP - General Family Medicine 04/02/24 documented as of this encounter
--- OUTSIDE RECORDS SUMMARY | 2024-04-07 12:58 | XMS_ITS | Clinical Summary ---
Author Organization [facility] Address [address] [place] [address] Care Team Providers Care Director Quality Assurance Name Role Phone Clinician, Not Found MD Primary Care Provider Un available Source Comments You are receiving this document as you are listed as the primary care provider,follow-up provider, or the patient has been referred to you for consultation.This is in compliance with the Medicare and[facility] EHR Incentive Program,which states Providers who transition their patient to another setting of careor provider of care or refers their patient to another provider of care shouldprovide summary care record for each transition of care or referral. XDC Allergies No known active allergies Medications Medication [...] replacement 020 Overview: By Dr. Murrieta at [facility]. Ascending aorta dilation 06/15/2020 Overview: -09/09/11: [...] Description 02/12/2024 7:10 PM CDT Ancillary Procedure [facility] [address] Radiology [address] [place] [address] Sanjay Leach, DO Pain of left hip 02/12/2024 6:50 PM CDT Office Visit [facility] [address] [place] [address] Sanjay Leach, DO Pain of left hip (Primary Dx); Left foot pain from Last 3 Months Social History Tobacco [...] of 3) 04/28/2023 023, 06/24/2013 COVID-19 Vaccine (2022- 4 season) 2023 06/27/2021, 12/10/2020, 11/19/2020 Influenza (#1) 2024 07/19/2021, 07/09/2019, 06/24/2013 DTaP/Tdap/Td (2 - Tdap) [...] this topic Medical Devices Implanted Type Area Assistant Laboratory Director Device Identifier Shelf Expiration Date Model / Serial / Lot Mohan Bone Biomet R 1x40 - [id number] Implanted:Qty: 2 on 06/15/2020 by Sanjay Murrieta MD at [facility] DEVICE Right: [employer] 07/29/2024 [id number] / / [id number] Patella All Poly Ply 41mm - [id number] Implanted:Qty: 1 on 06/15/2020 by Sanjay Murrieta MD at [facility] DEVICE Right: [employer] 06/28/2026 [id number] / / [id number] Comp Str [address] 14x+30 - [id number] Implanted:Qty: 1 on 06/15/2020 by Sanjay Murrieta MD at [facility] DEVICE Right: [employer] 11/26/2029 [id number] / / [id number] Stem Tib 5deg Szh Rt - [id number] Implanted:Qty: 1 on 06/15/2020 by Sanjay Murrieta MD at [facility] DEVICE Right: [employer] 01/26/2029 [id number] / / [id number] Comp Fem Ps Ccr Ps Std Sz12 Rt - [id number] Implanted:Qty: 1 on 06/15/2020 by Sanjay Murrieta MD at [facility] DEVICE Right: [employer] 06/28/2029 [id number] / / [id number] Asf Ps Ve 10mm 1012 Gh Rt - [id number] Implanted:Qty: 1 on 06/15/2020 by Sanjay Mrurieta MD at [facility] DEVICE Right: [employer] 04/28/2021 [id number] / / [id number] Procedures Procedure Name Priority Date/Time Associated Diagnosis [...] 2:08 PM 06/17/2020 2:45 PM Care Teams Director Quality Assurance Relationship Specialty Start Date End Date [facility] [address] PCP - General 06/23/20
--- OUTSIDE RECORDS SUMMARY | 2024-04-07 12:58 | XMS_ITS | Encounter Summary ---
Author Organization [facility] Address [address] [place] [address] Care Team Providers Care Sweet Goods Machine Operator Name Role Phone Clinician, Not Found MD Primary Care Provider Un available Reason for Referral * Therapies (Routine) - New Request Specialty Diagnoses / Procedures Referred By Contrashaun paz Referred To Contact Diagnoses Pain of left hip Conner Boudreaux DO [address] [place] [address] Referral ID Status Reason Start Date Expiration Date V isits Requested Visits Authorized [id number] New Request 02/12/2024 02/11/2025 999 999 Scheduling Instructions Your clinician recommended an appointment with [facility]. You can quickly make your appointment online at Boxee/[email or web address]. You can also call [phone] for help scheduling your appointment. We suggest [...] Diagnoses Left foot pain Conner Boudreaux DO [address] [place] [address] [address] Referral ID Status Reason Start Date Expiration Date V isits Requested Visits Authorized [id number] New Request 02/12/2024 05/13/2025 1 1 Scheduling Instructions Your clinician has recommended an appointment with [facility]. You can quickly make your appointment online at Boxee/schedule. You can also call [phone] for help scheduling your appointment. We suggest you call your health insurance company about your coverage and benefits for this appointment. Question Answer Appointment Urgency? Non-Urgent Reason for visit? hammer toe/foot pain * Procedure/Equipment (Routine) - Incomplete Specialty Diagnoses / Procedures Referred By Contac t Referred To Contact Diagnoses Pain of left hip Procedures XR Pelvis W Lt Lateral Hip Conner Boudreaux DO [address] [place] [address] [address] Referral ID Status Reason Start Date Expiration Date V isits Requested Visits Authorized [id number] Incomplete 02/12/2024 05/13/2025 1 1 Reason for Visit * Reason Comments LEG PAIN Back of buttocks jay n leg pain since last night Encounter Details Date Type Department Care Team (Late st Contact Info) Description 02/12/2024 6:50 PM CDT Office Visit [facility] [address] [place] [address] Conner Boudreaux DO [address] [facility] [place] [place] [address] Pain of left hip (Primary Dx); Left [...] Schedule your physical therapy appointment by calling [phone]. The following medications were prescribed at your visit : Orders Placed This Encounter Medications HYDROcodone-acetaminophen (NORCO) 5-325 MG tablet Sig: Take 1 Tablet by mouth every 8 hours as needed for Pain. Dispense: 12 Tablet Refill: 0 Medication Refill Requests: Prescription Refill Requests are not filled on Weekends or on Weekdays after 3:00PM For all medication refills: Request a refill using [facility] or contact your Pharmacy documented in this encounter Progress Notes * Conner Boudreaux DO - 02/12/2024 12:00 AM CDT NAME: MERRICK CENTENO CSN: [id number] CLINIC NOTE DATE OF SERVICE: 02/12/2024 : [...] it worse. PAST MEDICAL HISTORY: Reviewed in [facility]. REVIEW OF SYSTEMS: Temperature is afebrile. PHYSICAL [...] is having recurrent symptoms. Recommend physical therapy. [place] for pain relief, heat and massage. CONNER BOUDREAUX DO PARISH/AQS /[id number] documented in this encounter Plan of Treatment [...] hip documented in this encounter Care Teams Sweet Goods Machine Operator Relationship Specialty Start Date End Date Clinician, Not Found, [place] [address] PCP - General 06/23/20 documented as of this encounter
--- OUTSIDE RECORDS SUMMARY | 2024-04-07 12:58 | XMS_ITS | Encounter Summary ---
Author Organization [facility] Address [address], [place] [address] Care Team Providers Care Neon Sign Worker Name Role Phone Clinician, Not Found MD Primary Care Provider Un available Reason for Visit * Procedure/Equipment (Routine) - Incomplete Specialty Diagnoses / Procedures Referred By Contac t Referred To Contact Diagnoses Pain of left hip Procedures XR Pelvis W Lt Lateral Hip Sanjay Leach DO [address] [facility] [place] [address] Referral ID Status Reason Start Date Expiration Date V isits Requested Visits Authorized [id number] Incomplete 02/12/2024 05/13/2025 1 1 Encounter Details Date Type Department Care Team (Late st Contact Info) Description 02/12/2024 7:10 PM CDT Ancillary Procedure [facility] [address] Radiology [address] [place] [phone] Sanjay Leach DO [address] [facility] [place] [address] Pain of left hip Social History Tobacco [...] hip documented in this encounter Care Teams Neon Sign Worker Relationship Specialty Start Date End Date Clinician, Not Found, [place] [address] PCP - General 06/23/20 documented as of this encounter
--- OUTSIDE RECORDS SUMMARY | 2024-04-07 12:58 | XMS_ITS | Encounter Summary ---
Author Organization [facility] Address [address], [place] [address] Care Team Providers Care Relationship Management Lead Name Role Phone Clinician, Not Found MD Primary Care Provider Un available Reason for Visit * Reason Comments Questions Encounter Details Date Type Department Care Team (Late st Contact Info) Description 12/30/2023 Telephone [facility] [address] [place], [place] [address] Zakia Carrillo, DIRECTOR EMPLOYEE COMMUNICATIONS, TRAIN PLANNER [address] [place] [address] Questions Social History Tobacco Use Types Packs/Day [...] can we send you a message in Mobile2Me? No [Market Risk Specialist/Gold Plater: Relay to patient; We make every effort to get back to you sameday, however it may take 1-2 business days depending on the nature of the communication.] documented in this encounter Plan of Treatment Not on file documented as of this encounter Visit Diagnoses Not on filedocumented in this encounter Care Teams Relationship Management Lead Relationship Specialty Start Date End Date Clinician, Not Found, [place] [address] PCP - General 06/23/20 documented as of this encounter
== END 2024-04-07 12:56 | disposition home or self-care (01) ==
LOC: WOUND 12:55
PROVIDERS: PCP Family Medicine; Visit Provider Surgery
DX: I87.332 Chronic venous hypertension (idiopathic) with ulcer and inflammation of left lower extremity (principal); I89.0 Lymphedema, not elsewhere classified; L97.822 Non-pressure chronic ulcer of other part of left lower leg with fat layer exposed
CPT/HCPCS: 11042

== ENCOUNTER 2024-04-14 12:59 | Outpatient (CLI) | payer MEDICARE, BC, SELFPAY ==
--- OUTSIDE RECORDS SUMMARY | 2024-04-14 13:00 | XMS_ITS | Encounter Summary ---
Author Organization [facility] Address [address] [address] Phone Care Team Providers Care Broom Bundler Name Role Phone Aba Boo MD Primary Care Provider [phone] Reason for Visit * Reason Comments Cardiac Device Check Encounter Details Date Type Department Care Team (Latest Contact Info) Description 04/02/2024 7:00 AM CDT Cardiac Device Remote [facility] [address] [place] [address] Ancillary, [facility] Pacer Remote Monitor Sinoatrial node [...] the original note were not included. 04/02/24 2575 Remote Impression and Plan Place of Service [place];[employer];In person Remote Monitoring;E.R.;ICD Final Impression Normal Remote Monitor with Events RVP > 40% NO Events/Comments In person care link from [employer]. Pt has been 100% AT/AF since 03/16/24 with ventricular rates 80-120s bpm for majority of time. Presenting egm supporting AT/AF VS 80-120 bpm. No ventricular events logged. 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 Updated Dr. Frye via secure chat. Pt's device is beeping due to unsuccessful [employer] Alert transmission. Pt needs to follow up with [facility] technical support and device clinic they follow with. Follow Up Plan follow-up as scheduled Plan of Care Full report under Media/CV tab Anticoagulation (No updated med list) Battery 2.8 yrs Atrial Fib [place] % 100 RVP % 4.3 Heart Rate [...] call notification and can be viewed in Factabase. Presenting rhythm: Associated attestation - Sanjay Alvarez [...] situ documented in this encounter Care Teams Broom Bundler Relationship Specialty Start Date End Date Aba Boo MD [facility] & [address] [address] PCP - General Family Medicine 04/02/24 documented as of this encounter
--- OUTSIDE RECORDS SUMMARY | 2024-04-14 13:00 | XMS_ITS | Encounter Summary ---
Author Organization [facility] Address [address] [address] Phone Care Team Providers Care Skills Instructor Name Role Phone Aba Boo MD Primary Care Provider Reason for Visit * Reason Comments Pacemaker Problem Encounter Details Date Type Department Care Team (Late st Contact Info) Description 04/02/2024 3:26 PM CDT - 04/02/2024 4:45 PM CDT Emergency [facility] Emergency Department [address] [place] [id number] Lee Frye, DO [address] [place] [id number] Pacemaker complications, initial encounter (Primary Dx) Discharge [...] Code Departure Means Destination Home and/or Self Skilled Nursing documented in this encounter ED Notes * [...] certainly considered. Pacemaker was interrogated. Per pacemaker hospital insurance representative the pacemaker is working appropriately. The [...] Disposition ED Disposition Discharge Condition Stable Comment [facility] thanks you for allowing us to assist you with your healthcare needs. This document contains patient education materials and information regarding your injury/illness. *If you need copies of your x-rays for a f ollow up appointment please call [phone] to arrangefor burr picker. If you had an IV in [...] Primary documented in this encounter Care Teams Skills Instructor Relationship Specialty Start Date End Date Aba Boo MD [facility] [address] [place] [address] PCP - General Family Medicine 04/02/24 documented as of this encounter
--- OUTSIDE RECORDS SUMMARY | 2024-04-14 13:00 | XMS_ITS | Clinical Summary ---
Author Organization [facility] Address [address] [address] Phone Care Team Providers Care Television Reporter Name Role Phone Aba Boo MD Primary Care Provider Allergies No known active allergies Encounters Date Type Department Care Team Description 04/02/2024 3:26 PM CDT - 04/02/2024 4:45 PM CDT Emergency [facility] Emergency Department [address] [place] [address] Lee Frye, Pacemaker complications, initial encounter (Primary Dx) Discharge Disposition: Home and/or Self Care 04/02/2024 7:00 AM CDT Cardiac Device Remote [facility] [address] [place] [address] Ancillary, [facility] Pacer Remote Monitor Sinoatrial [...] age to complete this topic Care Teams Television Reporter Relationship Specialty Start Date End Date Aba Boo MD [facility] [address] [place] [address] PCP - General Family Medicine 04/02/24
--- OUTSIDE RECORDS SUMMARY | 2024-04-14 13:00 | XMS_ITS | Encounter Summary ---
Author Organization [facility] Address [address] [address] Phone Care Team Providers Care Customs Investigator Name Role Phone Aba Boo MD Primary Care Provider Encounter Details Date [...] on filedocumented in this encounter Care Teams Customs Investigator Relationship Specialty Start Date End Date Aba Boo MD [facility] & [address] [address] PCP - General Family Medicine 04/02/24 documented as of this encounter
--- OUTSIDE RECORDS SUMMARY | 2024-04-14 13:02 | XMS_ITS | Clinical Summary ---
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 4:49 PM CDT [facility] GLUCOSE, URINE >=1000(A) Negative mg/dL 03/16/2024 4:49 PM CDT [facility] KETONES,URINE Negative Negative mg/dL 03/16/2024 4:49 PM CDT [facility] BILIRUBIN,URI NE Negative Negative 03/16/2024 4:49 PM CDT [facility] OCCULT BLOOD,URINE Negative Negative 03/16/2024 4:49 PM CDT [facility] NITRITE Negative Negative 03/16/2024 4:49 PM CDT [facility] LEUKOCYTE ESTERASE Negative Negative 03/16/2024 4:49 PM CDT [facility] Urine URINE SPECIMEN / Unknown Non-Blood / Unknown 03/16/2024 4:32 PM CDT 03/16/2024 4:40 PM CDT Lucio ARMAS URINE [facility] [address] [place] [address], * PROCALCITONIN (03/16/2024 4:08 PM CDT) PROCALCITONIN 0.04 ng/ml 03/16/2024 4:59 PM CDT [facility] Blood BLOOD SPECIMEN / Unknown Butterfly / Unknown 03/16/2024 4:08 PM CDT 03/16/2024 4:18 PM CDT Narrative [facility] - 03/16/2024 4:59 PM CDT Procalcitonin [...] ng/mL are obtained. Lucio ARMAS SEND OUTS [facility] [address] [place] [address], [place] * BLOOD CULTURE (03/16/2024 4:08 PM CDT) Only the most recent of2 resultswithin the time period is included. CULTURE No Growth. 03/20/2024 7:10 PM CDT [facility] Blood BLOOD SPECIMEN / Unknown Butterfly / Unknown 03/16/2024 4:08 PM CDT 03/16/2024 4:18 PM CDT Narrative [facility] - 03/20/2024 7:10 PM CDT Low volume blood culture received; possible false negative culture. Lucio ARMAS MICROBIOLOGY [facility] [address] [place] [address], * ICD ANALYSIS DUAL WITHOUT REPROGRAM (03/16/2024 3:32 PM CDT) Narrative Marquis Santana MD - 03/16/2024 3:32 PM CDT Cyndi Arnold RN ? 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 All HV pathways have been programmed B>AX. Location of evaluation: [facility] - [id number] Reason for evaluation: Provider Request MEASUREMENTS Atrial [...] bpm ??Rate Response: Mode switch only (Med/Low, 3) Atrial - Amplitude: Adaptive 1.25 V ??Pulse [...] 4 months via [employer] remote with annual [place] or clinic with Dr. Santana each February. Cyndi Arnold, RN Nurse Clinician II [facility] Marquis Santana MD CARDIAC SERVICES ORD * EXTRA TUBE LIGHT GREEN (03/16/2024 1:23 PM CDT) Blood BLOOD SPECIMEN / Unknown Non-Lab Venipuncture / Unknown 03/16/2024 1:23 PM CDT 03/16/2024 1:33 PM CDT Estrella Flores MD LABORATORY Performing Organization Address [facility]/ZIP Co de Phone Number [facility] [address] [place] [address], [place] * (ABNORMAL) BLOOD GAS,VENOUS (03/16/2024 1:23 PM CDT) PH, VENOUS 7.31(L) 7.32 - 7.43 03/16/2024 1:36 PM CDT [facility] PCO2, VENOUS 68(H) 41 - 51 mmHg 03/16/2024 1:36 PM CDT [facility] PO2, VENOUS 63(H) 35 - 40 mmHg 03/16/2024 1:36 PM CDT [facility] HCO3,VENOUS 34(H) 22 - 29 mmol/L 03/16/2024 1:36 PM CDT [facility] BASE EXCESS, VENOUS, POCT 5.6(H) -2.0 - 3.0 03/16/2024 1:36 PM CDT [facility] O2 SATURATION, VENOUS 93(H) 70 - 75 % 03/16/2024 1:36 PM CDT [facility] PATIENT TEMPERATURE 37.0 Degrees C 03/16/2024 1:36 PM CDT [facility] Blood VENOUS BLOOD SPECIMEN / Unknown Butterfly / Unknown 03/16/2024 1:23 PM CDT 03/16/2024 1:31 PM CDT Estrella Flores MD CHEMISTRY Performing Organization Address [facility]/ZIP Co de Phone Number [facility] [address] [place] [address], [place] * LACTATE VENOUS (03/16/2024 1:22 PM CDT) Only the most recent of3 resultswithin the time period is included. LACTATE,VENOUS 0.8 0.5 - 2.0 mmol/L 03/16/2024 2:38 PM CDT [facility] Blood BLOOD SPECIMEN / Unknown Butterfly / Unknown 03/16/2024 1:22 PM CDT 03/16/2024 1:31 PM CDT Lucio ARMAS CHEMISTRY Performing Organization Address City/[facility]/ZIP Co de Phone Number [facility] [address] [place] [address], * (ABNORMAL) HEMOGLOBIN (03/16/2024 1:22 PM CDT) Only the most recent of8 resultswithin the time period is included. Pathologist [facility] HEMOGLOBIN 11.1(L) 13.5 - 17.5 g/dL 03/16/2024 1:39 PM CDT [facility] MCV 101(H) 80 - 100 fL 03/16/2024 1:39 PM CDT [facility] Blood BLOOD SPECIMEN / Unknown Butterfly / Unknown 03/16/2024 1:22 PM CDT 03/16/2024 1:31 PM CDT Lucio ARMAS HEMATOLOGY Performing Organization Address [facility] Co de Phone Number [facility] [address] [place] [address], * (ABNORMAL) FACTOR 10 CHROMOGENIC (03/16/2024 1:22 PM CDT) FACTOR 10 CHROMOGENIC 41(L) 65 - 130 % 03/16/2024 1:46 PM CDT [facility] Blood BLOOD SPECIMEN / Unknown Butterfly / Unknown 03/16/2024 1:22 PM CDT 03/16/2024 1:31 PM CDT Narrative [facility] - 03/16/2024 1:46 PM CDT Therapeutic Range 20-40% Lucio ARMAS SEND OUTS Performing Organization Address [facility] de Phone Number [facility] [address] [place] [address], [place] * CORTISOL TOTAL (03/16/2024 10:29 AM CDT) CORTISOL,TOTAL 15.0 ug/dL 03/16/2024 1:29 PM CDT [facility] Blood BLOOD SPECIMEN / Unknown Non-Lab Venipuncture / Unknown 03/16/2024 10:29 AM CDT 03/16/2024 10:35 AM CDT Narrative [facility] - 03/16/2024 1:29 PM CDT Cortisol ?Morning [...] Estrella Flores MD CHEMISTRY Performing Organization Address [facility] de Phone Number [facility] [address] [address], [place] * ECHO TTE LIMITED W CONTRAST W COLOR W DOPPLER (03/16/2024 10:23 AM CDT) Only the most recent of2 resultswithin the time period is included. AORTIC VALVE MEAN PG 7 mmHg EJECTION FRACTION 50 - 55% Anatomical Region Laterality Modality Ultrasound 03/16/2024 9:42 AM CDT Narrative 03/16/2024 11:06 AM CDT ECHOCARDIOGRAM RAIN CENTENO ? Accession#: ?? [id number] : ?1950 73 years Study Date: ?? 03/16/2024 9:42:01 AM Gender: M ?BP: ? 84/55 mmHg Height: 137.00 cm ?BSA: ?2.42 m? ? ? Weight: 200.00 kg ?Tech: ? OLL ? Referring MD: ESTRELLA FLORES Site: ? [facility] Reading Location: [facility] Patient Location: Inpatient. Procedure: Limited Echo w/ [...] documentation: 2 ml diluted Definity, lot #[id number], [facility]# [id number] was administered peripherally to enhance visualization of all left ventricular segments. . This study was interpreted by an [facility] accredited facility. ??Final ?? Procedure Note Leonel Montanez MD - 03/16/2024 ECHOCARDIOGRAM RAIN CENTENO : 1950 73 years Study Date: 03/16/2024 9:42:01 AM Gender: M BP: 84/55 mmHg Height: 137.00 cm BSA: 2.42 m? ? ? Weight: 200.00 kg Tech: OLL Referring MD: ESTRELLA FLORES Site: [facility] Reading Location: [facility] Patient Location: Inpatient. [...] documentation: 2 ml diluted Definity, lot #[id number], [facility]#[id number] was administered peripherally to enhance visualization of allleft ventricular segments. . This study was interpreted by an [facility] accredited facility. Final Estrella Flores MD ECHO [...] 6-15 ng/L ng/L 03/15/2024 8:14 PM CDT [facility] Blood BLOOD SPECIMEN / Unknown Venipuncture / Unknown 03/15/2024 7:54 PM CDT 03/15/2024 7:56 PM CDT Janina Valero MD CHEMISTRY [facility] [address] [place] [address] * CT CERVICAL SPINE WO (03/15/2024 2:10 [...] Used: set primary IV tubing Fatemeh Hunt SHIELD CLEANER ANESTHESIA PX NOTE ORDERABLES * XR CHEST [...] radiopaque foreign body. Procedure Note Krzysztof Ellis, DO - 03/15/2024 [...] 6-15 ng/L ng/L 03/15/2024 8:01 PM CDT [facility] Blood BLOOD SPECIMEN / Unknown Venipuncture / Unknown 03/15/2024 12:48 PM CDT 03/15/2024 12:57 PM CDT [facility] - 03/15/2024 8:01 PM CDT [id number] [...] Janina Valero MD CHEMISTRY Performing Organization Address [facility] Co de Phone Number [facility] [address] [place] [address] * Type and Screen (03/15/2024 12:48 PM CDT) Only the most recent of2 resultswithin the time period is included. ABORH O Rh Positive 03/15/2024 1:29 PM CDT [facility] BLOOD BANK ANTIBODY SCREEN Negative Negative 03/15/2024 1:29 PM CDT [facility] BLOOD BANK SPECIMEN EXPIRATION DATE/TIME 03/18/24 23:59 03/15/2024 1:29 PM CDT [facility] BLOOD BANK Blood BLOOD SPECIMEN / Unknown Venipuncture / Unknown 03/15/2024 12:48 PM CDT 03/15/2024 12:57 PM CDT Janina Valero MD BLOOD BANK Performing Organization Address [facility] de Phone Number [facility] BLOOD BANK [address] [place] [address] * (ABNORMAL) PROTIME- INR (03/15/2024 12:48 PM CDT) Only the most recent of3 resultswithin the time period is included. INR 2.4(H) <1.3 03/15/2024 1:09 PM CDT [facility] PROTIME 26.0(H) 10.3 - 12.3 sec 03/15/2024 1:09 PM CDT [facility] Blood BLOOD SPECIMEN / Unknown Venipuncture / Unknown 03/15/2024 12:48 PM CDT 03/15/2024 12:57 PM CDT Narrative [facility] - 03/15/2024 1:09 PM CDT ?Therapeutic [...] is on UFH. Janina Valero MD HEMATOLOGY [facility] [address] [place] [address] * SCAN-CARDIAC STRIP (02/21/2024 9:16 AM CDT) Scanner OTHER * Platelets AM (02/21/2024 7:50 AM CDT) Only the most recent of3 resultswithin the time period is included. PLATELET COUNT 280 140 - 440 thou/cu mm 02/21/2024 8:10 AM CDT [facility] MPV 8.7 6.5 - 11.0 fL 02/21/2024 8:10 AM CDT [facility] Blood BLOOD SPECIMEN / Unknown Venipuncture / Unknown 02/21/2024 7:50 AM CDT 02/21/2024 8:01 AM CDT Danay Fuchs MD HEMATOLOGY [facility] [address] [place] [address], * (ABNORMAL) WBC AM (02/21/2024 7:50 AM CDT) Only the most recent of2 resultswithin the time period is included. WHITE BLOOD COUNT 12.5(H) 4.5 - 11.0 thou/cu mm 02/21/2024 8:10 AM CDT [facility] NRBC 0.0 % 02/21/2024 8:10 AM CDT [facility] ABS NRBC 0.0 thou /cu mm 02/21/2024 8:10 AM CDT [facility] Blood BLOOD SPECIMEN / Unknown Venipuncture / Unknown 02/21/2024 7:50 AM CDT 02/21/2024 8:01 AM CDT Danay Fuchs MD HEMATOLOGY Performing Organization Address City/[facility] Co de Phone Number [facility] [address] [place] [address], * Magnesium AM (02/21/2024 7:50 AM CDT) Only the most recent of4 resultswithin the time period is included. MAGNESIUM 2.4 1.6 - 2.4 mg/dL 02/21/2024 8:30 AM CDT [facility] Blood BLOOD SPECIMEN / Unknown Venipuncture / Unknown 02/21/2024 7:50 AM CDT 02/21/2024 8:02 AM CDT Tayler Woodward NP CHEMISTRY Performing Organization Address [facility] Co de Phone Number [facility] [address] [place] [address], * SCAN-CARDIAC STRIP (02/21/2024 4:55 AM CDT) Scanner OTHER * (ABNORMAL) HEMATOCRIT (02/20/2024 1:13 PM CDT) HEMATOCRIT 32.4(L) 37.0 - 53.0 % 02/20/2024 1:30 PM CDT [facility] Blood BLOOD SPECIMEN / Unknown Venipuncture / Unknown 02/20/2024 1:13 PM CDT 02/20/2024 1:19 PM CDT Narrative [facility] - 02/20/2024 1:30 PM CDT Obtain before initiating IV heparin therapy if not done within previous 24 hours. Obtain before initiating IV heparin therapy if not done within previous 24 hours. Obtain before initiating IV heparin therapy if not done within previous 24 hours. Jose G Guzman MD HEMATOLOGY Performing Organization Address City/[facility] Co de Phone Number [facility] [address] [place] [address], [place] * (ABNORMAL) BUN (02/20/2024 1:13 PM CDT) BUN 32(H) 8 - 23 mg/dL 02/20/2024 2:37 PM CDT [facility] Blood BLOOD SPECIMEN / Unknown Venipuncture / Unknown 02/20/2024 1:13 PM CDT 02/20/2024 1:19 PM CDT Jose G Guzman MD CHEMISTRY Performing Organization Address [facility] de Phone Number [facility] [address] [place] [address], [place] * (ABNORMAL) CREATININE (02/20/2024 1:13 PM CDT) Pathologist [facility] eGFR 65(L) >90 mL/min/1.7 3m2 02/20/2024 2:37 PM CDT [facility] Comment:As of 2021, eG FR is calculated by the CKD-EPI creatinine equation without race adjustment. ??eGFR can be influenced by muscle mass, exercise, and diet. ??The reported eGFR is an estimation only and is only applicable if the renal function is stable. CREATININE 1.18 0.70 - 1.20 mg/dL 02/20/2024 2:37 PM CDT [facility] Blood BLOOD SPECIMEN / Unknown Venipuncture / Unknown 02/20/2024 1:13 PM CDT 02/20/2024 1:19 PM CDT Jose G Guzman MD CHEMISTRY Performing Organization Address [facility] Co de Phone Number [facility] [address] [place] [address], [place] * APTT (02/20/2024 1:13 PM CDT) APTT 35 28 - 36 sec 02/20/2024 1:41 PM CDT [facility] Blood BLOOD SPECIMEN / Unknown Venipuncture / Unknown 02/20/2024 1:13 PM CDT 02/20/2024 1:19 PM CDT Narrative [facility] - 02/20/2024 1:41 PM CDT Therapeutic Range: 57-87 seconds Jose G Guzman MD HEMATOLOGY [facility] [address] [place] [address], [place] * XR PELVIS 1 VIEW (02/20/2024 7:27 AM CDT) Anatomical Region Laterality Modality Pelvis Digital Radiogra phy 02/20/2024 7:47 AM CDT Impressions 02/20/2024 7:47 AM CDT Very subtle left femoral neck fracture is better seen on CT than radiographs. Dictated by Chantell Bobby MD @ Feb 20 2024 ??7:47AM (Electronically Signed) [email or web address] Narrative 02/20/2024 7:47 AM CDT For Patients: [...] @ Feb 20 2024 7:47AM (Electronically Signed) [email or web address] Ellie ARMAS [facility] * SCAN-CARDIAC STRIP (02/20/2024 7:02 AM CDT) Scanner OTHER * SCAN-CARDIAC STRIP (02/19/2024 6:40 PM CDT) Scanner OTHER * (ABNORMAL) COMPREHENSIVE BLOOD GAS MIXED VENOUS (02/19/2024 10:03 AM CDT) O2 SATURATION, MEASURED, MIXED VENOUS 63(L) 70 - 75 % 02/19/2024 10:03 AM CDT [facility] TRAL LABORATORY PATIENT TEMPERATURE 37.0 Degrees C 02/19/2024 10:03 AM CDT [facility] HEMOGLOBIN,BLOO D GAS 10.3(L) 13.5 - 17.5 g/dL 02/19/2024 10:03 AM CDT [facility] Blood BLOOD SPECIMEN / Unknown 02/19/2024 10:03 AM CDT 02/20/2024 8:46 AM CDT Danay Fuchs MD CHEMISTRY [facility] [address] [place] [address], * CV Procedure to be Performed (02/19/2024 9:55 AM CDT) Narrative Jose G Guzman MD - 02/19/2024 9:55 AM CDT Jose G Guzman MD ? 02/19/2024 10:06 AM [facility] Advanced Heart Failure Procedure Note Right [...] ??Uncomplicated EBL: ??minimal Jose [facility] MD [facility]/Trans[facility] Card[facility]/[place] [address] ?? Pager: [phone] [email or web address] Kathleen ARMAS [employer] OPERATOR ORD * CVL OTHER PROCEDURE (02/19/2024 9:53 AM CDT) Anatomical Region Laterality Modality Other 02/19/2024 9:53 AM CDT Provider Referring CV IMAGING * (ABNORMAL) CBC WITH AUTO DIFFERENTIAL (02/19/2024 7:54 AM CDT) Only the most recent of2 resultswithin the time period is included. WHITE BLOOD COUNT 12.0(H) 4.5 - 11.0 thou/cu mm 02/19/2024 8:39 AM CDT [facility] RED BLOOD COUNT 3.37(L) 4.30 - 5.90 mil/cu mm 02/19/2024 8:39 AM CDT [facility] HEMOGLOBIN 10.7(L) 13.5 - 17.5 g/dL 02/19/2024 8:39 AM CDT [facility] HEMATOCRIT 32.8(L) 37.0 - 53.0 % 02/19/2024 8:39 AM CDT [facility] MCV 97 80 - 100 fL 02/19/2024 8:39 AM CDT [facility] MCH 31.8 26.0 - 34.0 pg 02/19/2024 8:39 AM CDT [facility] MCHC 32.6 32.0 - 36.0 g/dL 02/19/2024 8:39 AM CDT [facility] RDW 14.6 11.5 - 15.5 % 02/19/2024 8:39 AM CDT [facility] PLATELET COUNT 273 140 - 440 thou/cu mm 02/19/2024 8:39 AM CDT [facility] MPV 9.2 6.5 - 11.0 fL 02/19/2024 8:39 AM [facility] NRBC 0.0 % 02/19/2024 8:39 AM [facility] ABS NRBC 0.0 thou /cu mm 02/19/2024 8:39 AM [facility] % NEUT 55.8 % 02/19/2024 8:39 AM [facility] % LYMPH 25.2 % 02/19/2024 8:39 AM [facility] % MONO 15.4 % 02/19/2024 8:39 AM [facility] % EOS 2.1 % 02/19/2024 8:39 AM [facility] % BASO 0.7 % 02/19/2024 8:39 AM [facility] % IMMATURE GRAN (METAS,MYELOS,WA OS) 0.8 % 02/19/2024 8:39 AM [facility] ABSOLUTE NEUTROPHILS 6.7 1.7 - 7.0 thou/cu mm 02/19/2024 8:39 AM [facility] ABSOLUTE LYMPHOCYTES 3.0(H) 0.9 - 2.9 thou/cu mm 02/19/2024 8:39 AM [facility] ABSOLUTE MONOCYTES 1.9(H) <0.9 thou/cu mm 02/19/2024 8:39 AM [facility] ABSOLUTE EOSINOPHILS 0.3 <0.5 thou/cu mm 02/19/2024 8:39 AM [facility] ABSOLUTE BASOPHILS 0.1 <0.3 thou/cu mm 02/19/2024 8:39 AM [facility] ABSOLUTE IMMATURE GRANULOCYTES(MET ,MYELOS,PROS) 0.1 <0.3 thou/cu mm 02/19/2024 8:39 AM [facility] Blood BLOOD SPECIMEN / Unknown Venipuncture / Unknown 02/19/2024 7:54 AM CDT 02/19/2024 8:26 AM CDT Danay Fuchs MD HEMATOLOGY [facility] [address] [place] [address], * SCAN-CARDIAC STRIP (02/19/2024 7:30 AM CDT) [...] - 145 mmol/L 02/17/2024 9:23 PM CDT [facility] POTASSIUM 5.3(H) 3.5 - 5.1 mmol/L 02/17/2024 9:23 PM [facility] CHLORIDE 99 98 - 107 mmol/L 02/17/2024 9:23 PM [facility] CO2,TOTAL 25 22 - 29 mmol/L 02/17/2024 9:23 PM T [facility] ANION GAP 11 5 - 18 02/17/2024 9:23 PM [facility] GLUCOSE 123(H) 70 - 99 mg/dL 02/17/2024 9:23 PM [facility] CALCIUM 8.9 8.8 - 10.2 mg/dL 02/17/2024 9:23 PM [facility] BUN 70(H) 8 - 23 mg/dL 02/17/2024 9:23 PM [facility] CREATININE 1.69(H) 0.70 - 1.20 mg/dL 02/17/2024 9:23 PM [facility] BUN/CREAT RATIO 41(H) 10 - 20 9:23 PM [facility] eGFR 42(L) >90 mL/min/1.7 3m2 02/17/2024 9:23 PM [facility] Comment:As of 2021, eG FR is calculated by the CKD-EPI creatinine equation without race adjustment. ??eGFR can be influenced by muscle mass, exercise, and diet. ??The reported eGFR is an estimation only and is only applicable if the renal function is stable. ALBUMIN 3.5(L) 4.0 - 4.9 g/dL 02/17/2024 9:23 PM T [facility] PROTEIN,TOTAL 6.2 6.0 - 8.0 g/dL 02/17/2024 9:23 PM [facility] BILIRUBIN,TOTAL 0.9 0.0 - 1.2 mg/dL 02/17/2024 9:23 PM CDT [facility] ALK PHOSPHATASE 97 40 - 129 IU/L 02/17/2024 9:23 PM CDT [facility] ALT (SGPT) 24 10 - 50 IU/L 02/17/2024 9:23 PM CDT [facility] AST (SGOT) 42 10 - 50 IU/L 02/17/2024 9:23 PM CDT [facility] Blood BLOOD SPECIMEN / Unknown Venipuncture / Unknown 02/17/2024 8:40 PM CDT 02/17/2024 8:45 PM CDT Alba Ha DO CHEMISTRY [facility] [address] [place] [address], * (ABNORMAL) LIPID PANEL (01/07/2018 4:35 PM CDT) CHOLESTEROL,TOTAL 174 100 - 199 mg/dL 01/07/2018 6:28 PM CDT [facility] TRIGLYCERIDES 194(H) <150 mg/dL 01/07/2018 6:28 PM CDT [facility] HDL CHOLESTEROL 64 >40 mg/dL 8 6:28 PM CDT [facility] NON-HDL CHOLESTEROL 110 <145 mg/dl 01/07/2018 6:28 PM CDT [facility] CHOL/HDL RATIO 2.72 <4.50 01/07/2018 6:28 PM CDT [facility] LDL CHOLESTEROL 71 <=130 mg/dL 01/07/2018 6:28 PM CDT [facility] PROVIDER ORDERED STATUS RANDOM 01/07/2018 6:28 PM CDT [facility] Blood BLOOD SPECIMEN / Unknown Venipuncture / Unknown 01/07/2018 4:35 PM CDT 01/07/2018 4:39 PM CDT Aba Boo MD CHEMISTRY [address] [address] from Last 3 Months or Most Recently Relevant to Health Maintenance Advance Directives * Full Code (Latest Code Status on File) Date Activated Date Inactivated Comments 04/08/2024 2:45 PM 04/08/2024 6:07 PM Question Answer Comments Code Status Discussion: Other * Full Code Date Activated Date Inactivated Comments 03/15/2024 10:32 [...] Status Discussion: Other (specify in commen ts): Care Teams Retail Selling Floor Leader Relationship Specialty Start Date End Date Aba Boo MD [address] [place] [address] PCP - General Family Practice 11/18/19 Destin Johnston MD [address] [address] Cardiology - CHF Cardiovascular Disease 04/14/20 Nurses, Advanced Heart Failure [address] [address] Advanced Heart Failure/Transplant Card 04/14/20
--- OUTSIDE RECORDS SUMMARY | 2024-04-14 13:02 | XMS_ITS | Encounter Summary ---
Author Organization [facility] Address [address], [place] [address] Care Team Providers Care Gaming Host Name Role Phone Clinician, Not Found MD Primary Care Provider Un available Reason for Visit * Reason Comments Questions Encounter Details Date Type Department Care Team (Late st Contact Info) Description 12/30/2023 Telephone [facility] [address] [place], [place] [address] Zakia Carrillo, BUCK SWAMPER, JOB PLACEMENT SPECIALIST [address] [place] [address] Questions Social History Tobacco Use Types Packs/Day [...] [place] * Erendira Prince - 12/30/2023 3:02 PM [...] can we send you a message in [employer]? No [Geodetic Surveyor/Compliance Associate: Relay to patient; We make every effort to get back to you sameday, however it may take 1-2 business days depending on the nature of the communication.] documented in this encounter Plan of Treatment Not on file documented as of this encounter Visit Diagnoses Not on filedocumented in this encounter Care Teams Gaming Host Relationship Specialty Start Date End Date Clinician, Not Found, [place] [address] PCP - General 06/23/20 documented as of this encounter
--- OUTSIDE RECORDS SUMMARY | 2024-04-14 13:02 | XMS_ITS | Encounter Summary ---
Author Organization [facility] Address [address] [place] [address] Care Team Providers Care Ornamenter Name Role Phone Clinician, Not Found MD Primary Care Provider Un available Reason for Referral * Therapies (Routine) - New Request Specialty Diagnoses / Procedures Referred By Contrashaun paz Referred To Contact Diagnoses Pain of left hip Conner Boudreaux DO [address] [place] [address] Referral ID Status Reason Start Date Expiration Date V isits Requested Visits Authorized [id number] New Request 02/12/2024 02/11/2025 999 999 Scheduling Instructions Your clinician recommended an appointment with Physical Therapy and Rehabilitation Services. You can quickly make your appointment online at [employer]schedule. You can also call [phone] for help scheduling your appointment. We suggest [...] Diagnoses Left foot pain Conner Boudreaux DO [address] [place] [address] Referral ID Status Reason Start Date Expiration Date V isits Requested Visits Authorized [id number] New Request 02/12/2024 05/13/2025 1 1 Scheduling Instructions Your clinician has recommended an appointment with [facility]. You can quickly make your appointment online at [employer]schedule. You can also call [phone] for help scheduling your appointment. We suggest you call your health insurance company about your coverage and benefits for this appointment. Question Answer Appointment Urgency? Non-Urgent Reason for visit? hammer toe/foot pain * Procedure/Equipment (Routine) - Incomplete Specialty Diagnoses / Procedures Referred By Contac t Referred To Contact Diagnoses Pain of left hip Procedures XR Pelvis W Lt Lateral Hip Conner Boudreaux DO [address] [place] [address] Referral ID Status Reason Start Date Expiration Date V isits Requested Visits Authorized [id number] Incomplete 02/12/2024 05/13/2025 1 1 Reason for Visit * Reason Comments LEG PAIN Back of buttocks jay n leg pain since last night Encounter Details Date Type Department Care Team (Late st Contact Info) Description 02/12/2024 6:50 PM CDT Office Visit [facility] [address] [place] [address] Conner Boudreaux DO [address] [facility] [address] [address] Pain of left hip (Primary Dx); Left [...] Schedule your physical therapy appointment by calling [phone]. The following medications were prescribed at your visit : Orders Placed This Encounter Medications HYDROcodone-acetaminophen (NORCO) 5-325 MG tablet Sig: Take 1 Tablet by mouth every 8 hours as needed for Pain. Dispense: 12 Tablet Refill: 0 Medication Refill Requests: Prescription Refill Requests are not filled on Weekends or on Weekdays after 3:00PM For all medication refills: Request a refill using netZentry or contact your Pharmacy documented in this encounter Progress Notes * Conner Boudreaux DO - 02/12/2024 12:00 AM CDT NAME: MERRICK CENTENO CSN: [id number] CLINIC NOTE DATE OF SERVICE: 02/12/2024 : [...] it worse. PAST MEDICAL HISTORY: Reviewed in [facility]. REVIEW OF SYSTEMS: Temperature is afebrile. [...] is having recurrent symptoms. Recommend physical therapy. [place] for pain relief, heat and massage. CONNER BOUDREAUX DO PARISH/AQS /[id number] documented in this encounter Plan of Treatment [...] hip documented in this encounter Care Teams Ornamenter Relationship Specialty Start Date End Date Clinician, Not Found, [place] [address] PCP - General 06/23/20 documented as of this encounter
--- OUTSIDE RECORDS SUMMARY | 2024-04-14 13:02 | XMS_ITS | Clinical Summary ---
Author Organization [facility] Address [address] [place] [address] Care Team Providers Care Forest Officer Name Role Phone Clinician, Not Found MD Primary Care Provider Un available Source Comments You are receiving this document as you are listed as the primary care provider,follow-up provider, or the patient has been referred to you for consultation.This is in compliance with the Medicare and[employer] EHR Incentive Program,which states Providers who transition their patient to another setting of careor provider of care or refers their patient to another provider of care shouldprovide summary care record for each transition of care or referral. [employer] Allergies No known active allergies Medications Medication [...] replacement 020 Overview: By Dr. Murrieta at [facility]. Ascending aorta dilation 06/15/2020 Overview: -09/09/11: [...] Description 02/12/2024 7:10 PM CDT Ancillary Procedure [facility] [address] [address] [address] [place] [address] Sanjay Leach, DO Pain of left hip 02/12/2024 6:50 PM CDT Office Visit [facility] [address] [place] [address] Sanjay Leach, DO Pain of [...] this topic Medical Devices Implanted Type Area International Nurse Device Identifier Shelf Expiration Date Model / Serial / Lot Mohan Bone Biomet R 1x40 - [id number] Implanted:Qty: 2 on 06/15/2020 by Sanjay Murrieta MD at [facility] DEVICE Right: [employer] 07/29/2024 [id number] / / [id number] Patella All Poly Ply 41mm - [id number] Implanted:Qty: 1 on 06/15/2020 by Sanjay Murrieta MD at [facility] DEVICE Right: [employer] 06/28/2026 [id number] / / [id number] Comp Str [address] 14x+30 - [id number] Implanted:Qty: 1 on 06/15/2020 by Sanjay Murrieta MD at [facility] DEVICE Right: [employer] 11/26/2029 [id number] / / [id number] Stem Tib 5deg Szh Rt - [id number] Implanted:Qty: 1 on 06/15/2020 by Sanjay Murrieta MD at [facility] DEVICE Right: [employer] 01/26/2029 [id number] / / [id number] Comp Fem Ps Ccr Ps Std Sz12 Rt - [id number] Implanted:Qty: 1 on 06/15/2020 by Sanjay Murrieta MD at [facility] DEVICE Right: [employer] 06/28/2029 [id number] / / [id number] Asf Ps Ve 10mm 1012 Gh Rt - [id number] Implanted:Qty: 1 on 06/15/2020 by Sanjay Murrieta MD at [facility] DEVICE Right: [employer] 04/28/2021 [id number] / / [id number] Procedures Procedure Name Priority Date/Time Associated Diagnosis [...] 2:08 PM 06/17/2020 2:45 PM Care Teams Forest Officer Relationship Specialty Start Date End Date [facility] Not [facility] [address] PCP - General 06/23/20
--- OUTSIDE RECORDS SUMMARY | 2024-04-14 13:02 | XMS_ITS | Encounter Summary ---
Author Organization [facility] Address [address] [address] Care Team Providers Care Kid Club Attendant Name Role Phone Clinician, Not Found MD Primary Care Provider Un available Reason for Visit * Procedure/Equipment (Routine) - Incomplete Specialty Diagnoses / Procedures Referred By Contac t Referred To Contact Diagnoses Pain of left hip Procedures XR Pelvis W Lt Lateral Hip Sanjay Leach DO [address] [facility] [address] [address] Referral ID Status Reason Start Date Expiration Date V isits Requested Visits Authorized [id number] Incomplete 02/12/2024 05/13/2025 1 1 Encounter Details Date Type Department Care Team (Late st Contact Info) Description 02/12/2024 7:10 PM CDT Ancillary Procedure [facility] [address] [address] [address] [place] [phone] Sanjay Leach DO [address] [facility] [address] [address] Pain of left hip Social History Tobacco [...] hip documented in this encounter Care Teams Kid Club Attendant Relationship Specialty Start Date End Date Clinician, Not Found, [place] [address] PCP - General 06/23/20 documented as of this encounter
== END 2024-04-14 13:00 | disposition home or self-care (01) ==
LOC: WOUND 12:59
PROVIDERS: PCP Family Medicine; Visit Provider Surgery
DX: I87.332 Chronic venous hypertension (idiopathic) with ulcer and inflammation of left lower extremity (principal); I89.0 Lymphedema, not elsewhere classified; L97.822 Non-pressure chronic ulcer of other part of left lower leg with fat layer exposed; Z79.01 Long term (current) use of anticoagulants; I48.91 Unspecified atrial fibrillation
CPT/HCPCS: 97597

== ENCOUNTER 2024-04-21 12:53 | Outpatient (CLI) | payer MEDICARE, BC, SELFPAY ==
--- OUTSIDE RECORDS SUMMARY | 2024-04-21 12:54 | XMS_ITS | Encounter Summary ---
Author Organization [facility] Address [address] [address] Phone Care Team Providers Care Chief Mate Name Role Phone Aba Boo MD Primary Care Provider [phone] Encounter Details Date Type Department Care Team [...] on filedocumented in this encounter Care Teams Chief Mate Relationship Specialty Start Date End Date Aba Boo MD [facility] & [address] [address] PCP - General Family Medicine 04/02/24 documented as of this encounter
--- OUTSIDE RECORDS SUMMARY | 2024-04-21 12:54 | XMS_ITS | Clinical Summary ---
Author Organization [facility] Address [address] [address] Phone Care Team Providers Care Electrical Experimental Mechanic Name Role Phone Aba Boo MD Primary Care Provider [phone] Allergies No known active allergies Encounters Date Type Department Care Team Description 04/02/2024 3:26 PM CDT - 04/02/2024 4:45 PM CDT Emergency [facility] Emergency Department [address] [place] [address] Lee Frye, Pacemaker complications, initial encounter (Primary Dx) Discharge Disposition: Home and/or Self Care 04/02/2024 7:00 AM CDT Cardiac Device Remote [facility] [address] [place] [address] Ancillary, [facility] Pacer Remote Monitor Sinoatrial node dysfunction (HCC) [...] age to complete this topic Care Teams Electrical Experimental Mechanic Relationship Specialty Start Date End Date Aba Boo MD [facility] [address] [place] [address] PCP - General Family Medicine 04/02/24
--- OUTSIDE RECORDS SUMMARY | 2024-04-21 12:54 | XMS_ITS | Encounter Summary ---
Author Organization [facility] Address [address] [address] Phone Care Team Providers Care Director Case Name Role Phone Aba Boo MD Primary Care Provider [phone] Reason for Visit * Reason Comments Cardiac Device Check Encounter Details Date Type Department Care Team (Latest Contact Info) Description 04/02/2024 7:00 AM CDT Cardiac Device Remote [facility] [address] [place] [address] Ancillary, [facility] Remote Monitor Sinoatrial node [...] the original note were not included. 04/02/24 8139 Remote Impression and Plan Place of Service Ernul;[facility];In person Remote Monitoring;E.R.;ICD Final Impression Normal Remote Monitor with Events RVP > 40% NO Events/Comments In person care link from [employer]. Pt has been 100% AT/AF since 03/16/24 with ventricular rates 80-120s bpm for majority of time. Presenting egm supporting AT/AF VS 80-120 bpm. No ventricular events logged. Minimally TANKAGE SUPERVISOR: 4.3%. Updated Dr. Frye via secure chat. Pt's device is beeping due to unsuccessful [employer] Alert transmission. Pt needs to follow up with [employer] technical support and device clinic they follow with. Follow Up Plan follow-up as scheduled Plan of Care Full report under Media/CV tab Anticoagulation (No updated med list) Battery 2.8 yrs Atrial Fib Sparks [place] % 100 RVP % 4.3 Heart Rate [...] call notification and can be viewed in [employer]. Presenting rhythm: Associated attestation - Sanjay Alvarez [...] situ documented in this encounter Care Teams Director Case Relationship Specialty Start Date End Date Aba Boo MD [facility] & [address] [address] PCP - General Family Medicine 04/02/24 documented as of this encounter
--- OUTSIDE RECORDS SUMMARY | 2024-04-21 12:55 | XMS_ITS | Encounter Summary ---
Author Organization [facility] Address [address] [place] [address] Care Team Providers Care Mobile Equipment Operator Name Role Phone Clinician, Not Found MD Primary Care Provider Un available Reason for Referral * Therapies (Routine) - New Request Specialty Diagnoses / Procedures Referred By Contrashaun paz Referred To Contact Diagnoses Pain of left hip Conner Boudreaux DO [address] [place] [address] Referral ID Status Reason Start Date Expiration Date V isits Requested Visits Authorized [id number] New Request 02/12/2024 02/11/2025 999 999 Scheduling Instructions Your clinician recommended an appointment with Physical Therapy and Rehabilitation Services. You can quickly make your appointment online at [employer]schedule. You can also call [phone] for help scheduling your appointment. We suggest [...] Diagnoses Left foot pain Conner Boudreaux DO [address] [place] [place] [address] Referral ID Status Reason Start Date Expiration Date V isits Requested Visits Authorized [id number] New Request 02/12/2024 05/13/2025 1 1 Scheduling Instructions Your clinician has recommended an appointment with [facility]. You can quickly make your appointment online at [employer]schedule. You can also call [phone] for help scheduling your appointment. We suggest you call your health insurance company about your coverage and benefits for this appointment. Question Answer Appointment Urgency? Non-Urgent Reason for visit? hammer toe/foot pain * Procedure/Equipment (Routine) - Incomplete Specialty Diagnoses / Procedures Referred By Contac t Referred To Contact Diagnoses Pain of left hip Procedures XR Pelvis W Lt Lateral Hip Conner Boudreaxu DO [address] [place] [address] Referral ID Status Reason Start Date Expiration Date V isits Requested Visits Authorized [id number] Incomplete 02/12/2024 05/13/2025 1 1 Reason for Visit * Reason Comments LEG PAIN Back of buttocks jay n leg pain since last night Encounter Details Date Type Department Care Team (Late st Contact Info) Description 02/12/2024 6:50 PM CDT Office Visit [facility] [address] [place] [address] Conner Boudreaux DO [address] [facility] [address] [address] Pain of left hip (Primary Dx); Left [...] Schedule your physical therapy appointment by calling [phone]. The following medications were prescribed at your visit : Orders Placed This Encounter Medications HYDROcodone-acetaminophen (NORCO) 5-325 MG tablet Sig: Take 1 Tablet by mouth every 8 hours as needed for Pain. Dispense: 12 Tablet Refill: 0 Medication Refill Requests: Prescription Refill Requests are not filled on Weekends or on Weekdays after 3:00PM For all medication refills: Request a refill using Instabug or contact your Pharmacy documented in this encounter Progress Notes * Conner Boudreaux DO - 02/12/2024 12:00 AM CDT NAME: MERRICK CENTENO CSN: [id number] CLINIC NOTE DATE OF SERVICE: 02/12/2024 : [...] PAST MEDICAL HISTORY: Reviewed in [facility]. REVIEW OF SYSTEMS: Temperature is afebrile. PHYSICAL [...] is having recurrent symptoms. Recommend physical therapy. [place] for pain relief, heat and massage. CONNER BOUDREAUX DO PARISH/AQS /[id number] documented in this encounter Plan of Treatment [...] hip documented in this encounter Care Teams Mobile Equipment Operator Relationship Specialty Start Date End Date Clinician, Not Found, [place] [address] PCP - General 06/23/20 documented as of this encounter
--- OUTSIDE RECORDS SUMMARY | 2024-04-21 12:55 | XMS_ITS | Encounter Summary ---
Author Organization [facility] Address [address] [address] Phone Care Team Providers Care Supervisor Gelatin Plant Name Role Phone Aba Boo MD Primary Care Provider [phone] Reason for Visit * Reason Comments Pacemaker Problem Encounter Details Date Type Department Care Team (Late st Contact Info) Description 04/02/2024 3:26 PM CDT - 04/02/2024 4:45 PM CDT Emergency [facility] Emergency Department [address] [place] [address] Lee Frye, DO [address] [place] [id number] Pacemaker complications, initial encounter (Primary Dx) Discharge [...] Code Departure Means Destination Home and/or Self Alf documented in this encounter ED Notes * Eunice Bob RN - 04/02/2024 4:43 PM CDT Pt stable at time of discharge. Copy of AVS provided. Pt verbalizes understanding of discharge teaching. * Lee Frye DO - 04/02/2024 4:29 PM CDT Patient: Merrick Ptety Means of Arrival: Car Chief Complaint: Pacemaker [...] certainly considered. Pacemaker was interrogated. Per pacemaker outside medical sales representative the pacemaker is working appropriately. The [...] Disposition ED Disposition Discharge Condition Stable Comment [facility] thanks you for allowing us to assist you with your healthcare needs. This document contains patient education materials and information regarding your injury/illness. *If you need copies of your x-rays for a f ollow up appointment please call [phone] to arrangefor cone picker. If you had an IV in [...] Primary documented in this encounter Care Teams Supervisor Gelatin Plant Relationship Specialty Start Date End Date Aba Boo MD [facility] [address] [place] [address] PCP - General Family Medicine 04/02/24 documented as of this encounter
--- OUTSIDE RECORDS SUMMARY | 2024-04-21 12:55 | XMS_ITS | Encounter Summary ---
Author Organization [facility] Address [address], [place] [address] Care Team Providers Care Die Repairer Trimmer Dies Name Role Phone Clinician, Not Found MD Primary Care Provider Un available Reason for Visit * Reason Comments Questions Encounter Details Date Type Department Care Team (Late st Contact Info) Description 12/30/2023 Telephone [facility] [address] [place], [place] [address] Zakia Carrillo, LEAD CUSTODIAN, METAL TILE LATHER [address] [place] [address] Questions Social History Tobacco Use Types Packs/Day [...] [place] * Erendira Prince - 12/30/2023 3:02 PM [...] can we send you a message in [employer]? No [Cnc Technician/Rail Grinder: Relay to patient; We make every effort to get back to you sameday, however it may take 1-2 business days depending on the nature of the communication.] documented in this encounter Plan of Treatment Not on file documented as of this encounter Visit Diagnoses Not on filedocumented in this encounter Care Teams Die Repairer Trimmer Dies Relationship Specialty Start Date End Date Clinician, Not Found, [place] [address] PCP - General 06/23/20 documented as of this encounter
--- OUTSIDE RECORDS SUMMARY | 2024-04-21 12:55 | XMS_ITS | Encounter Summary ---
[facility] Address [address] [address] Care Team Providers Care Vehicle Assembler Name Role Phone Clinician, Not Found MD Primary Care Provider Un available Reason for Visit * Procedure/Equipment (Routine) - Incomplete Specialty Diagnoses / Procedures Referred By Contac t Referred To Contact Diagnoses Pain of left hip Procedures XR Pelvis W Lt Lateral Hip Sanjay Leach DO [address] [facility] [place] [id number] Referral ID Status Reason Start Date Expiration Date V isits Requested Visits Authorized [id number] Incomplete 02/12/2024 05/13/2025 1 1 Encounter Details Date Type Department Care Team (Late st Contact Info) Description 02/12/2024 7:10 PM CDT Ancillary Procedure [facility] [id number] Radiology [address] [place] [id number] Sanjay Leach DO [address] [facility] [place] [id number] Pain of left hip Social History Tobacco [...] hip documented in this encounter Care Teams Vehicle Assembler Relationship Specialty Start Date End Date Clinician, Not Found, [place] [address] PCP - General 06/23/20 documented as of this encounter
--- OUTSIDE RECORDS SUMMARY | 2024-04-21 12:55 | XMS_ITS | Clinical Summary ---
Author Organization [facility] Address [place], [place] [address] Care Team Providers Care Executive Business Coach Name Role Phone Aba Boo MD Primary Care Provider + Destin Johnston MD Unavailable [phone] Nurses, Advanced Heart Failure Unavailable + Allergies No known active allergies Medications Medication Sig Dispensed Refills Start Date End Date Status acetaminophen (TYLENOL EXTRA STRGTH) 500 mg tablet Take 2 tablets by mouth every 6 hours if needed. 0 08/02/20 20 Active traZODone (DESYREL) 100 mg tablet Take 200 mg by mouth at bedtime if needed for Sleep. 05/06/20 23 Active oxygen-air delivery systems (HOME OXYGEN)Indication s:Sepsis due to Streptococcus species with acute organ dysfunction, unspecified organ dysfunction type, unspecified whether septic shock present (HC),HFrEF (heart failure with reduced ejection fraction) () Oxygen for home use. Liters per minute: 1 L/min per nasal cannula. Frequency of use: With activity.;. Length of need: 99 Months. 1 Each 10/21/19 24 Active rOPINIRole (REQUIP) 4 mg tablet Take 12 mg by mouth once daily in the evening. Active levothyroxine (Synthroid) 112 mcg tablet Take 224 mcg by mouth once daily. Active gabapentin (NEURONTIN) 300 mg capsule Take 300 mg by mouth once daily in the evening. Active metOLazone (ZAROXOLYN) 5 mg tabletIndications :Chronic HFrEF (heart failure with reduced ejection fraction) (HC) Take by mouth as directed by advanced heart failure team clinicians. 15 Tablet 04/13/20 24 Active sotaloL (BETAPACE) 80 mg tabletIndications :Atrial fibrillation, unspecified type (HC) Take 2 Tablets (160 mg) by mouth every 12 hours. 120 Tablet 04/13/20 24 Active rivaroxaban (Xarelto) 20 mg tabletIndications :Atrial fibrillation, unspecified type (HC) Take 1 Tablet (20 mg) by mouth once daily with evening meal. 90 Tablet 3 04/13/20 24 Active rosuvastatin (CRESTOR) 10 mg tabletIndications :Coronary artery disease, unspecified vessel or lesion type, unspecified whether angina present, unspecified whether inupiat or transplanted heart Take 1 Tablet (10 mg) by mouth at bedtime. 90 Tablet 3 04/13/20 24 Active furosemide (LASIX) 20 mg tabletIndications :Chronic systolic heart failure (HC) Take 3 Tablets (60 mg) by mouth two times daily. 540 Tablet 1 04/14/20 24 Active empagliflozin (Jardiance) 10 mg tabletIndications :Chronic systolic heart failure (HC) Take 1 Tablet (10 mg) by mouth once daily. HOLD until after cardioversion on 04/1904/16/20 24 Active Zepbound 2.5 mg/0.5 mL penIndications:Ob esity, unspecified classification, unspecified obesity type, unspecified whether serious comorbidity present Inject 2.5 mg subcutaneous once weekly. HOLD dose on Tuesday 04/17 prior to cardioversion 04/16/20 24 Active hydrocortisone 1 % creamIndications: Atrial fibrillation, unspecified type (HC) Apply topically to affected area(s) 4 times daily if needed for Itching. 04/19/20 24 Active rivaroxaban (Xarelto) 20 mg tabletIndications :Atrial fibrillation, unspecified type (HC) Take 1 Tablet (20 mg) by mouth once daily with evening meal. 90 Tablet 3 02/11/20 23 024 Discontinued(Re order (E-cancel not sent)) rosuvastatin (CRESTOR) 10 mg tabletIndications :Coronary artery disease, unspecified vessel or lesion type, unspecified whether angina present, unspecified whether inupiat or transplanted heart Take 1 Tablet (10 mg) by mouth at bedtime. 90 Tablet 3 10/07/19 24 024 Discontinued(Re order (E-cancel not sent)) furosemide (LASIX) 20 mg tabletIndications :Chronic systolic heart failure (HC) Take 2 Tablets (40 mg) by mouth once daily. Dose increased by PCP (outside [facility]) 10/24. 10/24/19 24 024 Discontinued(Re order (E-cancel not sent)) sotaloL (BETAPACE) 120 mg tabletIndications :Atrial fibrillation, unspecified type (HC) Take 1 Tablet (120 mg) by mouth every 12 hours. Hold if blood pressure is less than 90/60. 60 Tablet 6 11/12/19 24 024 Discontinued(Re order (E-cancel not sent)) empagliflozin (Jardiance) 10 mg tabletIndications :Chronic systolic heart failure (HC) Take 1 Tablet (10 mg) by mouth once daily. 90 Tablet 3 01/29/20 24 024 Discontinued Zepbound 2.5 mg/0.5 mL pen Inject 2.5 mg subcutaneous once weekly. 02/03/20 24 024 Discontinued furosemide (LASIX) 40 mg tabletIndications :Chronic systolic heart failure (HC) Take 3 Tablets (120 mg) by mouth two times daily. 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 Ashton. Hypothyroidism 02/17/2024 Encounters Date Type Department Care Team Description 04/20/2024 Telephone [facility] [address] [place] [phone] Marquis Santana MD Atrial Fibrillation 04/19/2024 9:05 AM CDT Anesthesia Event [facility] [address] [place] [address] Marco Aguiar MD Wilson, Timothy Eric, CRNA 04/19/2024 7:18 AM CDT - 04/19/2024 10:53 AM CDT Hospital Encounter [facility] [address] [place] [address] David Ugarte NP Gebre-Amlak, Kassatihun Debebe, MD Deviley, Sarah Jean, CRNA Atrial fibrillation, unspecified type (HC) (Primary Dx) Discharge Disposition: Home Self Care 04/19/2024 Travel 04/16/2024 7:06 AM CDT - 04/16/2024 10:07 AM CDT Hospital Encounter [facility] [address] [place] [address] Marquis Santana MD Wilson, Timothy Eric, CRNA Obesity, unspecified classification, unspecified obesity type, unspecified whether serious comorbidity present (Primary Dx); Chronic systolic heart failure (HC) Discharge Disposition: Home Self Care 04/16/2024 7:05 AM CDT Anesthesia Event [facility] [address] [place] [address] Placido Chowdhury CRNA 04/16/2024 Travel 04/15/2024 Telephone [facility] [address] [place] [phone] Lianna Dominguez, KELSEA Device Check (AF alert) 04/14/2024 Telephone [facility] [address] [place] [phone] Destin Johnston MD 04/13/2024 4:20 PM CDT Office Visit [address] [place] [address] Rosalie Senior NP Heart Problem (Paroxysmal atrial fibrillation); Primary MD (Aba Boo MD/) 04/13/2024 8:00 AM CDT Office Visit [facility] [address] [facility] [address] [place] [address] Destin Johnston MD CV Heart Failure Est (STAT - IN PERSON F/U VISIT. LABS PRIOR @ [facility] /Acute on chronic HFrEF (heart failure with reduced ejection fraction) //pt states he is in a-fib. He got converted on and went to primary yesterday to confirm he is in A-fib still.//) 04/13/2024 Travel 04/10/2024 Telephone [facility] [address] [facility] [address] [place] [phone] Marquis Banda RN Device Check (Patient thinks he back in AF) 04/08/2024 2:40 PM CDT Anesthesia Event [facility] [address] [place] [address] Zion Leigh MD 04/08/2024 12:19 PM CDT - 04/08/2024 3:58 PM CDT Hospital Encounter [facility] [address] [place] [address] Marquis Santana MD Wilson, Timothy Eric, CRNA Kushins, Stephen Isaac, MD Persistent atrial fibrillation (HC) (Primary Dx) Discharge Disposition: Home Self Care 04/08/2024 Travel 04/07/2024 Telephone [facility] [address] [facility] [address] [place] [phone] Marquis Santana MD Schedule Cardioversion 04/05/2024 10:30 AM CDT Office Visit [facility] [address] [place] [address] Kathleen Boyer PA Follow Up (follow up) 04/05/2024 Travel 04/02/2024 Telephone [facility] [address] [place] [address] Susana Joyner I, RN Device Check 04/02/2024 Telephone [facility] [address] [place] [address] Destin Johnston MD Concerns (Defib beeping ) 03/30/2024 9:55 AM CDT Ancillary Procedure [address] [place] [address] 03/30/2024 9:50 AM CDT Ancillary Procedure [address] [place] [address] 03/30/2024 9:30 AM CDT Office Visit [address] [place] [address] Riaz Peterson MD Hip Pain/problem (left hip pain); Chest Injury (left side rib pain) 03/30/2024 Travel 03/29/[address] [place] [address] Riaz Peterson MD Questions 03/22/2024 Telephone [facility] [address] [place] [phone] Destin Johnston MD Follow Up (BP update) 03/19/2024 Orders Only [facility] [address] [place] [address] Destin Johnston MD <No scans attached> 03/15/2024 10:28 PM CDT - 03/19/2024 11:22 AM CDT Hospital Encounter [facility] [address] [place] [address] Alan De Santiago MD Kiberenge, Roy Kagumba, MD Kirkland, MD Keyla Mcgarry, DO Gerardo Lundberg, Lee Kennedy MD [facility] Hospitalists Of Left displaced femoral neck fracture (HC) (Primary Dx); Closed fracture of multiple ribs of left side, sequela; Closed fracture of neck of left femur with routine healing, subsequent encounter; Acute on chronic HFrEF (heart failure with reduced ejection fraction) (HC) Discharge Disposition: Home Self Care 03/15/2024 6:00 PM CDT Hospital Encounter [facility] [address] [place] [address] [facility] Hospitalists Of 03/15/2024 1:49 PM CDT Anesthesia Event [facility] [address] [place] [address] Fatemeh Hunt CRNA 03/15/2024 12:13 PM CDT - 03/15/2024 9:18 PM CDT Emergency [facility] [address] [place] [address] Janina Valero MD Ball, Julieanne Patricia, MD Closed fracture of multiple ribs of left side, initial encounter (Primary Dx); Hypoxia; Hypotension, unspecified hypotension type; Laceration of multiple sites of left lower extremity, initial encounter Discharge Disposition: Crit Acc Hosp w Planned Readmission 03/15/2024 Telephone [facility] [place] [address] [facility] [address] [place] [address] Erendira Sotomayor NP Letter (Request letter faxed on 03-12-24 be re-faxed as didn't receive the whole document.) 03/15/2024 Travel 03/12/2024 Telephone [facility] [place] [address] [facility] [address] [place] [address] Erendira Sotomayor NP Questions 03/11/2024 8:35 AM CDT Ancillary Procedure [facility] [place] [address] [facility] [address] [place] [address] 03/11/2024 8:30 AM CDT Office Visit [facility] [place] [address] [facility] [address] [place] [address] Ellie Martinez PA Hip Pain/problem (Non-operative follow-up visit: non-displaced left femoral neck fracture) 03/11/2024 Travel 03/10/2024 Telephone [facility] [address] [facility] [address] [place] [phone] Erendira Sotomayor NP Medication Management 03/09/2024 Telephone [facility] [address] [place] [address] [address] [place] [address] Riaz Peterson MD 03/02/2024 1:00 PM CDT Office Visit [address] [place] [address] Erendira Sotomayor NP CV Heart Failure Est (EST PT. STAT [facility] F/U, LABS PRIOR AT [facility], H/O CHRONIC HFrEF) 03/02/2024 Travel 03/01/2024 [facility] [address] [place] [phone] Valentina Green, PT CARE COORDINATION 02/26/2024 11:40 AM CDT Ancillary Procedure [address] [place] [address] 02/26/2024 11:00 AM CDT Office Visit [facility] [address] [place] [address] [address] [place] [address] Riaz Peterson MD Hip Pain/problem (left hip pain) 02/26/2024 4:30 AM CDT Home [facility] Visit [facility] [address] [place] [phone] Katharine Nieves OT OT - MISSED VISIT 02/26/2024 Home Care Visit [facility] [address] [place] [phone] Valentina Green, PT EPISODE DISCHARGE 02/26/2024 Travel 02/23/2024 9:30 AM CDT Home [facility] Visit [facility] [address] [place] [address] Brenda Moses, RN SN - OASIS START OF CARE 02/23/2024 Telephone [facility] [address] [place] [address] Brenda Moses, apartment maintenance manager 02/23/2024 Plan of Care Documentation [facility] [address] [place] [address] 02/17/2024 8:19 PM CDT - 02/21/2024 11:03 AM CDT Hospital Encounter [facility] [address] [place] [address] Alba Ha, Rah Mcneal DO Geiger, Lucio Lyon, DO Palacios, MD Shila Sampson Amy Sharon, MD [facility] Hospitalists Of Hematoma of left lower extremity, initial encounter (Primary Dx); Weakness; Weight gain; Cardiovascular symptoms; Closed fracture of neck of left femur, initial encounter (HC); Chronic HFrEF (heart failure with reduced ejection fraction) (HC); Cellulitis of left lower extremity Discharge Disposition: Home Health 02/17/2024 Travel 02/10/2024 9:30 AM CDT Office Visit [facility] [address] [address] Destin Johnston MD Office Visit (Appointment Note//IN PERSON F/U VISIT. LABS PRIOR//) 02/10/2024 8:30 AM CDT Orders Only [facility] [address] [facility] [address] [place] [address] Lab 02/10/2024 Travel 01/29/2024 Refill [facility] [address] [facility] [address] [place] [phone] Destin Johnston MD Refill Request from Last 3 Months Immunizations Name Administration [...] Sign Reading Time Taken Comments Blood Pressure 99/65 04/19/2024 10:03 AM CDT Pulse 80 04/19/2024 10:03 AM CDT Temperature 36.3 ??C (97.3 ??F) 04/19/2024 10:03 AM C DT Respiratory Rate 18 04/19/2024 10:03 AM CDT Oxygen Saturation 98% 04/19/2024 10:03 AM CDT Inhaled Oxygen Concentration - - Weight 135.6 kg (299 lb) 04/19/2024 7:29 AM CDT Height 200.7 cm (6' 7) 04/19/2024 7:29 AM CDT Body Mass Index 33.68 04/19/2024 7:29 AM CDT Plan of Treatment Upcoming Encounters Date Type Department Care Team (Late st Contact Info) Description 04/27/2024 9:45 AM CDT Office Visit [facility] [place] [address] [facility] [address] [place] [phone] Riaz Peterson MD [address] [facility] [address] [place] [address] 05/03/2024 8:30 AM CDT Office Visit [address] [phone] Kathleen Boyer PA [address] [place] [address] 06/21/2024 7:30 AM CDT Orders Only [address] [phone] Ale Welch 06/24/2024 8:00 AM CDT Office Visit [facility] [address] [place] [address] Destin Johnston MD [address] [facility] [address] [place] [address] 06/25/2024 Cardiac Device Check [facility] [phone] 06/29/2024 2:20 PM CDT [facility] [address] [facility] [address] [place] [address] Rosalie Senior NP [address] [place] [address] 07/15/2024 Cardiac Device Check [facility] [phone] Health Maintenance Due Date Last Done Comments [...] Completed 03/15/2024 Medical Devices Implanted Type Area Touch Up Painter Hand Device Identifier Shelf Expiration Date Model / Serial / Lot Graft Valsalva 34mm - [id number] Implanted:Qty: 1 on 09/09/2011 at [facility] [employer] [id number] / / Procedures Procedure Name Priority Date/Time Associated Diagnosis Comments EKG 12 LEAD Routine 04/19/2024 9:00 AM CDT Atrial fibrillation, unspecified type (HC) POTASSIUM,ISTAT Timed 04/19/2024 7:48 AM CDT EKG 12 LEAD Preop 04/19/2024 7:30 AM CDT POTASSIUM,ISTAT Timed 04/16/2024 7:47 AM CDT EKG 12 LEAD Preop 04/16/2024 7:31 AM CDT PRO-BNP Timed 04/08/2024 2:57 PM CDT BASIC [...] PELVIS W STAT 03/15/2024 2:02 PM CDT [facility] AN IV START Routine 03/15/2024 1:33 PM CDT [facility] AN IV START Routine 03/15/2024 1:33 PM CDT [facility] AN IV START Routine 03/15/2024 1:33 PM CDT [facility] AN IV START Routine 03/15/2024 1:33 PM [...] AM CDT Chronic systolic heart failure (HC) LIPID PANEL Routine 01/07/2018 4:35 PM CDT Hypertension from Last 3 Months or Most Recently Relevant to Health Maintenance Results * EKG 12 LEAD (04/19/2024 9:00 AM CDT) Only the most recent of6 resultswithin the time period is included. [facility] Interpretation Atrial fibrillation with Intermittent Pacing Possible Inferior infarct (cited on or before 10-Sep-2011) Anterior infarct (cited on or before 10-Sep-2011) Abnormal ECG When compared with ECG of 19-Apr-2024 07:30, Vent. rate has decreased by ??43 bpm Ventricular Rate 64 BPM Atrial Rate 64 BPM P-R Interval 208 ms QRS Duration 116 ms QT 454 ms QTc 468 ms P [place] 73 degrees R [place] -17 degrees T [place] 47 degrees 04/19/2024 9:00 AM CDT 04/20/2024 7:54 AM CDT Narrative 04/20/2024 7:54 AM CDT Test Indication: PRE Rosalie Senior HEALTH COORDINATOR EKG ORD * POTASSIUM,ISTAT (04/19/2024 7:48 AM CDT) Only the most recent of3 resultswithin the time period is included. [facility] POTASSIUM, POCT 3.9 3.5 - 5.0 mmol/L 04/19/2024 10:27 AM CDT [facility] Blood BLOOD SPECIMEN / Unknown 04/19/2024 7:48 AM CDT 04/19/2024 10:27 AM CDT David Ugarte HEALTH COORDINATOR CHEMISTRY [facility] [address] [place] [address], * (ABNORMAL) PRO-BNP (04/08/2024 2:57 PM CDT) Only the most recent of4 resultswithin the time period is included. [facility] PRO-BNP 2,314(H) <125 pg/mL 04/08/2024 3:44 PM CDT [facility] Blood BLOOD SPECIMEN / Unknown Venipuncture / Unknown 04/08/2024 2:57 PM CDT 04/08/2024 3:03 PM CDT Narrative [facility] - 04/08/2024 3:44 PM CDT The following [...] failure. ? David Ugarte NP SEND OUTS [facility] [address] [place] [address], * (ABNORMAL) BASIC METABOLIC PANEL (04/08/2024 2:57 PM CDT) Only the most recent of12 resultswithin the time period is included. SODIUM 144 136 - 145 mmol/L 04/08/2024 3:44 PM CDT [facility] POTASSIUM 3.9 3.5 - 5.1 mmol/L 04/08/2024 3:44 PM CDT [facility] CHLORIDE 100 98 - 107 mmol/L 04/08/2024 3:44 PM CDT [facility] CO2,TOTAL 35(H) 22 - 29 mmol/L 04/08/2024 3:44 PM CDT [facility] ANION GAP 9 5 - 18 04/08/2024 3:44 PM CDT [facility] GLUCOSE 88 70 - 99 mg/dL 04/08/2024 3:44 PM CDT [facility] CALCIUM 9.1 8.8 - 10.2 mg/dL 04/08/2024 3:44 PM CDT [facility] BUN 21 8 - 23 mg/dL 04/08/2024 3:44 PM CDT [facility] CREATININE 0.92 0.70 - 1.20 mg/dL 04/08/2024 3:44 PM CDT [facility] BUN/CREAT RATIO 23(H) 10 - 20 3:44 PM CDT [facility] eGFR 88(L) >90 mL/min/1.7 3m2 04/08/2024 3:44 PM CDT [facility] Comment:As of 2021, eG [...] 3:03 PM CDT David Ugarte NP CHEMISTRY [facility] [address] [place] [address], * EP CARDIOVERSION (04/08/2024 2:44 PM CDT) Anatomical Region Laterality Modality X-Ray Angiograph y Narrative 04/08/2024 2:44 PM CDT Seamus Cole MD ? 04/08/2024 ??4:11 PM [facility] Cardiac Electrophysiology Procedure Note DOS: 04/08/2024 Brief History: ??Rain Centeno is a pleasant 73 y.o. year old with history of persistent atrial fibrillation who now presents to CVOP NPO since midnight for direct current cardioversion. [...] throughout the time services were performed David Ugarte NP [facility] Cardiac Electrophysiology Seamus Cole MD Cardiac Arrhythmia Section [facility] Marquis Santana MD CV IMAGING * SCAN-CARDIAC STRIP (04/08/2024 12:00 AM CDT) [...] @ Mar ??5 2023 ??2:43PM (Electronically Signed) [email or web address] Narrative 04/02/2024 2:43 PM CDT For Patients: [...] @ Apr 02 2024 2:43PM (Electronically Signed) [email or web address] Riaz Peterson MD GENERAL IMAGING * XR [...] @ Mar ??2 2023 ??3:21PM (Electronically Signed) [email or web address] Narrative 03/30/2024 3:21 PM CDT For Patients: ??As a result of the s Act, medical imaging exams and procedure reports [...] @ Mar 30 2024 3:21PM (Electronically Signed) [email or web address] Riaz Peterson MD GENERAL IMAGING * SCAN-CARDIAC STRIP (03/19/2024 9:21 AM CDT) Scanner OTHER * (ABNORMAL) CBC W PLT NO DIFF (03/19/2024 4:50 AM CDT) Only the most recent of5 resultswithin the time period is included. WHITE BLOOD COUNT 10.1 4.5 - 11.0 thou/cu mm 03/19/2024 5:23 AM CDT [facility] RED BLOOD COUNT 3.48(L) 4.30 - 5.90 mil/cu mm 03/19/2024 5:23 AM CDT [facility] HEMOGLOBIN 10.2(L) 13.5 - 17.5 g/dL 03/19/2024 5:23 AM CDT [facility] HEMATOCRIT 33.9(L) 37.0 - 53.0 % 03/19/2024 5:23 AM CDT [facility] MCV 97 80 - 100 fL 03/19/2024 5:23 AM CDT [facility] MCH 29.3 26.0 - 34.0 pg 03/19/2024 5:23 AM CDT [facility] MCHC 30.1(L) 32.0 - 36.0 g/dL 03/19/2024 5:23 AM CDT [facility] RDW 14.8 11.5 - 15.5 % 03/19/2024 5:23 AM CDT [facility] PLATELET COUNT 227 140 - 440 thou/cu mm 03/19/2024 5:23 AM CDT [facility] MPV 9.4 6.5 - 11.0 fL 03/19/2024 5:23 AM CDT [facility] NRBC 0.0 % 03/19/2024 5:23 AM CDT [facility] ABS NRBC 0.0 thou /cu mm 03/19/2024 5:23 AM CDT [facility] Blood BLOOD SPECIMEN / Unknown Venipuncture / Unknown 03/19/2024 4:50 AM CDT 03/19/2024 5:14 AM CDT Varghese Mckenna MD HEMATOLOGY [facility] [address] [place] [address], * (ABNORMAL) HEPATIC FUNCTION PANEL (03/19/2024 4:50 AM CDT) Only the most recent of4 resultswithin the time period is included. ALBUMIN 3.3(L) 4.0 - 4.9 g/dL 03/19/2024 5:44 AM CDT [facility] PROTEIN,TOTAL 6.1 6.0 - 8.0 g/dL 03/19/2024 5:44 AM CDT [facility] BILIRUBIN,TOTAL 0.5 0.0 - 1.2 mg/dL 03/19/2024 5:44 AM CDT [facility] BILIRUBIN,DIRECT 0.2 0.0 - 0.3 mg/dL 03/19/2024 5:44 AM CDT [facility] BILIRUBIN,INDIRE CT 0.3 0.2 - 0.8 mg/dL 03/19/2024 5:44 AM CDT [facility] ALK PHOSPHATASE 122 40 - 129 IU/L 03/19/2024 5:44 AM CDT [facility] ALT (SGPT) 37 10 - 50 IU/L 03/19/2024 5:44 AM CDT [facility] AST (SGOT) 56(H) 10 - 50 IU/L 03/19/2024 5:44 AM CDT [facility] Blood BLOOD SPECIMEN / Unknown Venipuncture / Unknown 03/19/2024 4:50 AM CDT 03/19/2024 5:14 AM CDT Varghese Mckenna MD CHEMISTRY Performing Organization Address City/[facility]/ZIP Co de Phone Number [facility] [employer] [address] [place] [address], * SCAN-CARDIAC STRIP (03/19/2024 12:01 AM CDT) Scanner OTHER * (ABNORMAL) GLUCOSE METER (03/18/2024 8:36 PM CDT) Only the most recent of17 resultswithin the time period is included. [facility] Signature GLUCOSE METER 172(H) 65 - 100 mg/dL 03/18/2024 11:27 PM CDT [facility] Blood BLOOD SPECIMEN / Unknown 03/18/2024 8:36 PM CDT 03/18/2024 11:27 PM CDT Lee Carrillo MD CHEMISTRY Performing Organization Address City/[facility] Co de Phone Number [facility] [employer] [address] [place] [address], [place] * US ARTERIAL LOWER EXTREMITY LEFT [...] - 4.20 uIU/mL 03/17/2024 10:19 PM CDT [facility] Blood BLOOD SPECIMEN / Unknown Venipuncture / Unknown 03/17/2024 4:18 AM CDT 03/17/2024 4:35 AM CDT Narrative [facility] - 03/17/2024 10:19 PM CDT In Adults, TSH values between 5.00 and 10.00 uIU/ml do not necessarily indicate the presence of Hypothyroidism. Correlation with clinical findings such as presence of goiter and/or Thyroperoxidase (TPO) Antibody may be helpful. For more information please refer to YU 2004; 291: 228-238. Shane Ramires DO CHEMISTRY Performing Organization Address [facility] Co de Phone Number [facility] [address] [place] [address], * T4,FREE (03/17/2024 4:18 AM CDT) Pathologist [facility] T4,FREE 1.37 0.93 - 1.70 ng/dL 03/17/2024 10:51 PM CDT [facility] Blood BLOOD SPECIMEN / Unknown Venipuncture / Unknown 03/17/2024 4:18 AM CDT 03/17/2024 4:35 AM CDT Shane Ramires DO CHEMISTRY Performing Organization Address City/[facility]/ZIP Co de Phone Number [facility] [address] [place] [address], * CK TOTAL (03/17/2024 4:18 AM CDT) Pathologist [facility] CK,TOTAL 133 39 - 308 IU/L 03/17/2024 9:43 PM CDT [facility] Blood BLOOD SPECIMEN / Unknown Venipuncture / Unknown 03/17/2024 4:18 AM CDT 03/17/2024 4:35 AM CDT Shane Ramires DO CHEMISTRY Performing Organization Address [facility]/ZIP Co de Phone Number [facility] [address] [place] [address], * [facility] DRAW ONLY (03/17/2024 4:18 AM CDT) Only the most recent of4 resultswithin the time period is included. CALCIUM,IONIZE D 1.18 1.15 - 1.27 mmol/L 03/17/2024 4:41 AM CDT [facility] Blood BLOOD SPECIMEN / Unknown Venipuncture / Unknown 03/17/2024 4:18 AM CDT 03/17/2024 4:35 AM CDT Estrella Flores MD CHEMISTRY Performing Organization Address [facility] Co de Phone Number [facility] [address] [place] [address], * SCAN-CARDIAC STRIP (03/16/2024 7:21 PM CDT) Scanner OTHER * (ABNORMAL) URINALYSIS MICROSCOPIC (03/16/2024 4:32 PM CDT) RBC 0-2 0-2, None Seen /HPF 03/16/2024 4:49 PM CDT [facility] TRAL LABORAT[facility] WBC 0-2 0-2, 3-5, None Seen /HPF 03/16/2024 4:49 PM CDT [facility] BACTERIA None Seen None Seen, Rare, Few Bacteria/ HPF 03/16/2024 4:49 PM CDT [facility] EPITHELIAL CELLS None Seen None Seen, Few Epi/HPF 03/16/2024 4:49 PM CDT [facility] HYALINE CASTS 11-25(A) 0-2, 3-5 /LPF 03/16/2024 4:49 PM CDT [facility]AL [facility] Urine URINE SPECIMEN / Unknown Non-Blood / Unknown 03/16/2024 4:32 PM CDT 03/16/2024 4:40 PM CDT Lucio ARMAS URINE [facility] [address] [place] [address], [place] * (ABNORMAL) UA W/ SEDIMENT EXAM REFLEXED PER CRITERIA (03/16/2024 4:32 PM CDT) COLOR Yellow Yellow Color 03/16/2024 4:49 PM CDT [facility] TRAL [facility] CLARITY Clear Clear Clarity 03/16/2024 4:49 PM CDT [facility] SPECIFIC GRAVITY,URINE 1.015 1.010, 1.015, 1.020, 1.025 03/16/2024 4:49 PM CDT [facility] TRAL LAB[facility] PH,URINE 5.0(A) 6.0, 7.0, 8.0, 5.5, 6.5, 7.5, 8.5 03/16/2024 4:49 PM CDT [facility] UROBILINOGEN, QUALITATIVE Normal Normal EU/dl 03/16/2024 4:49 PM CDT [facility] PROTEIN, URINE Trace(A) Negative mg/dL 03/16/2024 4:49 PM CDT [facility] GLUCOSE, URINE >=1000(A) Negative mg/dL 03/16/2024 4:49 PM CDT [facility] TRAL LAB[facility] KETONES,URINE Negative Negative mg/dL 03/16/2024 4:49 PM CDT [facility] TRAL LAB[facility] BILIRUBIN,URI NE Negative Negative 03/16/2024 4:49 PM CDT [facility] TRAL LAB[facility] OCCULT BLOOD,URINE Negative Negative 03/16/2024 4:49 PM CDT [facility] NITRITE Negative Negative 03/16/2024 4:49 PM CDT [facility] TRAL LAB[facility] LEUKOCYTE ESTERASE Negative Negative 03/16/2024 4:49 PM CDT [facility] Urine URINE SPECIMEN / Unknown Non-Blood / Unknown 03/16/2024 4:32 PM CDT 03/16/2024 4:40 PM CDT Lucio ARMAS [facility] [address] [place] [address], * PROCALCITONIN (03/16/2024 4:08 PM CDT) PROCALCITONIN 0.04 ng/ml 03/16/2024 4:59 PM CDT [facility] Blood BLOOD SPECIMEN / Unknown Butterfly / Unknown 03/16/2024 4:08 PM CDT 03/16/2024 4:18 PM CDT Narrative [facility] - 03/16/2024 4:59 PM CDT [...] Lucio ARMAS SEND OUTS Performing Organization Address [facility] Co de Phone Number [facility] [address] [place] [address], * BLOOD CULTURE (03/16/2024 4:08 PM CDT) Only the most recent of2 resultswithin the time period is included. CULTURE No Growth. 03/20/2024 7:10 PM CDT [facility] Blood BLOOD SPECIMEN / Unknown Butterfly / Unknown 03/16/2024 4:08 PM CDT 03/16/2024 4:18 PM CDT Narrative [facility] - 03/20/2024 7:10 PM CDT Low volume blood culture received; possible false negative culture. Lucio ARMAS MICROBIOLOGY Performing Organization Address City/[facility] Co de Phone Number [facility] [address] [place] [address], * ICD ANALYSIS DUAL WITHOUT REPROGRAM (03/16/2024 3:32 PM CDT) Narrative Marquis Santana MD - 03/16/2024 3:32 PM CDT Cyndi Arnold RN ? 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 All HV pathways have been programmed B>AX. Location of evaluation: [facility] Reason for evaluation: Provider Request MEASUREMENTS Atrial [...] 4 months via [employer] remote with annual [place] or clinic with Dr. Santana each February. Cyndi Arnold, RN Nurse Clinician II [facility] Pacemaker/ICD Clinic Marquis Santana MD CARDIAC SERVICES ORD * EXTRA TUBE LIGHT GREEN (03/16/2024 1:23 PM CDT) Blood BLOOD SPECIMEN / Unknown Non-Lab Venipuncture / Unknown 03/16/2024 1:23 PM CDT 03/16/2024 1:33 PM CDT Estrella Flores MD [facility] [address] [place] [address], * (ABNORMAL) BLOOD GAS,VENOUS (03/16/2024 1:23 PM CDT) PH, VENOUS 7.31(L) 7.32 - 7.43 03/16/2024 1:36 PM CDT [facility] TR[facility] PCO2, VENOUS 68(H) 41 - 51 mmHg 03/16/2024 1:36 PM CDT [facility] PO2, VENOUS 63(H) 35 - 40 mmHg 03/16/2024 1:36 PM CDT [facility] HCO3,VENOUS 34(H) 22 - 29 mmol/L 03/16/2024 1:36 PM CDT [facility] BASE EXCESS, VENOUS, POCT 5.6(H) -2.0 - 3.0 03/16/2024 1:36 PM CDT [facility] O2 SATURATION, VENOUS 93(H) 70 - 75 % 03/16/2024 1:36 PM CDT [facility] TRAL LAB[facility] PATIENT TEMPERATURE 37.0 Degrees C 03/16/2024 1:36 PM CDT [facility] Blood VENOUS BLOOD SPECIMEN / Unknown Butterfly / Unknown 03/16/2024 1:23 PM CDT 03/16/2024 1:31 PM CDT Estrella Flores MD CHEMISTRY Performing Organization Address City/[facility] Co de Phone Number [facility] [address] [place] [address], * LACTATE VENOUS (03/16/2024 1:22 PM CDT) Only the most recent of3 resultswithin the time period is included. LACTATE,VENOUS 0.8 0.5 - 2.0 mmol/L 03/16/2024 2:38 PM CDT [facility] Blood BLOOD SPECIMEN / Unknown Butterfly / Unknown 03/16/2024 1:22 PM CDT 03/16/2024 1:31 PM CDT Lucio ARMAS CHEMISTRY Performing Organization Address City/[facility]/ZIP Co de Phone Number [facility] [address] [place] [address], [place] * (ABNORMAL) HEMOGLOBIN (03/16/2024 1:22 PM CDT) Only the most recent of8 resultswithin the time period is included. HEMOGLOBIN 11.1(L) 13.5 - 17.5 g/dL 03/16/2024 1:39 PM CDT [facility] MCV 101(H) 80 - 100 fL 03/16/2024 1:39 PM CDT [facility] Blood BLOOD SPECIMEN / Unknown Butterfly / Unknown 03/16/2024 1:22 PM CDT 03/16/2024 1:31 PM CDT Lucio ARMAS HEMATOLOGY Performing Organization Address City/[facility]/ZIP Co de Phone Number [facility] [address] [place] [address], * (ABNORMAL) FACTOR 10 CHROMOGENIC (03/16/2024 1:22 PM CDT) FACTOR 10 CHROMOGENIC 41(L) 65 - 130 % 03/16/2024 1:46 PM CDT [facility] TR[facility] Blood BLOOD SPECIMEN / Unknown Butterfly / Unknown 03/16/2024 1:22 PM CDT 03/16/2024 1:31 PM CDT Narrative [facility] - 03/16/2024 1:46 PM CDT Therapeutic Range 20-40% Lucio ARMAS SEND OUTS Performing Organization Address [facility]/ZIP Co de Phone Number [facility] [address] [place] [address], * CORTISOL TOTAL (03/16/2024 10:29 AM CDT) CORTISOL,TOTAL 15.0 ug/dL 03/16/2024 1:29 PM CDT [facility] Blood BLOOD SPECIMEN / Unknown Non-Lab Venipuncture / Unknown 03/16/2024 10:29 AM CDT 03/16/2024 10:35 AM CDT Narrative [facility] - 03/16/2024 1:29 PM CDT Cortisol ?Morning Hours ?6:00 ??AM - 10:00 AM ?(4.8-19.5 ug/dL) Cortisol ?Afternoon Hours ??4:00 ??PM - ??8:00 PM ?(2.5-11.9 ug/dL) ? Biotin supplements may cause clinically significant interference for this test assay. ??If interference is suspected, it is strongly recommended that biotin is discontinued for at least one week prior to retesting. Estrella Flores MD CHEMISTRY [facility] LABORATORY [address] [place] [address], [place] * ECHO TTE LIMITED W CONTRAST W COLOR W DOPPLER (03/16/2024 10:23 AM CDT) Only the most recent of2 resultswithin the time period is included. AORTIC VALVE MEAN PG 7 mmHg EJECTION FRACTION 50 - 55% Anatomical Region Laterality Modality Ultrasound 03/16/2024 9:42 AM CDT Narrative 03/16/2024 11:06 AM CDT ECHOCARDIOGRAM RAIN CENTENO ? Accession#: ?? [id number] : ?1950 73 years Study Date: ?? 03/16/2024 9:42:01 AM Gender: M ?BP: ? 84/55 mmHg Height: 137.00 cm ?BSA: ?2.42 m? ? ? Weight: 200.00 kg ?Tech: ? OLL ? Referring MD: ESTRELLA FLORES Site: ? [facility] Reading Location: [facility] Patient Location: Inpatient. Procedure: Limited Echo [...] documentation: 2 ml diluted Definity, lot #[id number], [facility]# [id number] was administered peripherally to enhance visualization of all left ventricular segments. . This study was interpreted by an [facility] accredited facility. ??Final ?? Procedure Note Leonel Montanez MD - 03/16/2024 ECHOCARDIOGRAM RAIN CENTENO : 1950 73 years Study Date: 03/16/2024 9:42:01 AM Gender: M BP: 84/55 mmHg Height: 137.00 cm BSA: 2.42 m? ? ? Weight: 200.00 kg Tech: PAULOL Referring MD: ESTRELLA FLORES Site: [facility] Reading Location: [facility] IP Patient [...] documentation: 2 ml diluted Definity, lot #[id number], [facility]#[id number] was administered peripherally to enhance visualization of allleft ventricular segments. . This study was interpreted by an [facility] accredited facility. Final Estrella Flores [...] 6-15 ng/L ng/L 03/15/2024 8:14 PM CDT [facility] Blood BLOOD SPECIMEN / Unknown Venipuncture / Unknown 03/15/2024 7:54 PM CDT 03/15/2024 7:56 PM CDT Janina Valero MD CHEMISTRY [facility] [address] [place] [address] * CT CERVICAL SPINE WO (03/15/2024 2:10 [...] 30(H) 6-15 ng/L ng/L 03/15/2024 8:01 PM T [facility] Blood BLOOD SPECIMEN / Unknown Venipuncture / Unknown 03/15/2024 12:48 PM CDT 03/15/2024 12:57 PM CDT [facility] LABORATORY - 03/15/2024 8:01 PM [...] Janina Valero MD CHEMISTRY Performing Organization Address City/State/[facility] Co de Phone Number [facility] [address] [place] [address] * Type and Screen (03/15/2024 12:48 PM CDT) Only the most recent of2 resultswithin the time period is included. ABORH O Rh Positive 03/15/2024 1:29 PM CDT [facility] BLOOD BANK ANTIBODY SCREEN Negative Negative 03/15/2024 1:29 PM CDT [facility] BLOOD BANK SPECIMEN EXPIRATION DATE/TIME 03/18/24 23:59 03/15/2024 1:29 PM T [facility] BLOOD BANK Blood BLOOD SPECIMEN / Unknown Venipuncture / Unknown 03/15/2024 12:48 PM CDT 03/15/2024 12:57 PM CDT Janina Valero MD BLOOD BANK Performing Organization Address [facility]/[employer] de Phone Number [facility] BLOOD BANK [address] [place] [address] * (ABNORMAL) PROTIME- INR (03/15/2024 12:48 PM CDT) Only the most recent of3 resultswithin the time period is included. INR 2.4(H) <1.3 03/15/2024 1:09 PM CDT [facility] PROTIME 26.0(H) 10.3 - 12.3 sec 03/15/2024 1:09 PM CDT [facility] Blood BLOOD SPECIMEN / Unknown Venipuncture / Unknown 03/15/2024 12:48 PM CDT 03/15/2024 12:57 PM CDT Narrative [facility] - 03/15/2024 1:09 PM CDT ?Therapeutic [...] Janina Valero MD HEMATOLOGY Performing Organization Address [facility] Co de Phone Number [facility] [address] [place] [address] * SCAN-CARDIAC STRIP (02/21/2024 9:16 AM CDT) Scanner OTHER * Platelets AM (02/21/2024 7:50 AM CDT) Only the most recent of3 resultswithin the time period is included. PLATELET COUNT 280 140 - 440 thou/cu mm 02/21/2024 8:10 AM CDT [facility] MPV 8.7 6.5 - 11.0 fL 02/21/2024 8:10 AM CDT [facility] Blood BLOOD SPECIMEN / Unknown Venipuncture / Unknown 02/21/2024 7:50 AM CDT 02/21/2024 8:01 AM CDT Danay Fuchs MD HEMATOLOGY Performing Organization Address City/[facility]/ZIP Co de Phone Number [facility] [address] [place] [address], [place] * (ABNORMAL) WBC AM (02/21/2024 7:50 AM CDT) Only the most recent of2 resultswithin the time period is included. WHITE BLOOD COUNT 12.5(H) 4.5 - 11.0 thou/cu mm 02/21/2024 8:10 AM CDT [facility] TR[facility] LAB[facility] NRBC 0.0 % 02/21/2024 8:10 AM CDT [facility] ABS NRBC 0.0 thou /cu mm 02/21/2024 8:10 AM CDT [facility] Blood BLOOD SPECIMEN / Unknown Venipuncture / Unknown 02/21/2024 7:50 AM CDT 02/21/2024 8:01 AM CDT Danay Fuchs MD HEMATOLOGY [facility] [address] [place] [address], [place] * Magnesium AM (02/21/2024 7:50 AM CDT) Only the most recent of4 resultswithin the time period is included. MAGNESIUM 2.4 1.6 - 2.4 mg/dL 02/21/2024 8:30 AM CDT [facility] Blood BLOOD SPECIMEN / Unknown Venipuncture / Unknown 02/21/2024 7:50 AM CDT 02/21/2024 8:02 AM CDT Tayler Woodward NP CHEMISTRY Performing Organization Address City/[facility]/ZIP Co de Phone Number [facility] [address] [place] [address], * SCAN-CARDIAC STRIP (02/21/2024 4:55 AM CDT) Scanner OTHER * (ABNORMAL) HEMATOCRIT (02/20/2024 1:13 PM CDT) Pathologist [facility] HEMATOCRIT 32.4(L) 37.0 - 53.0 % 02/20/2024 1:30 PM CDT [facility] Blood BLOOD SPECIMEN / Unknown Venipuncture / Unknown 02/20/2024 1:13 PM CDT 02/20/2024 1:19 PM CDT Narrative [facility] - 02/20/2024 1:30 PM CDT Obtain before initiating IV heparin therapy if not done within previous 24 hours. Obtain before initiating IV heparin therapy if not done within previous 24 hours. Obtain before initiating IV heparin therapy if not done within previous 24 hours. Jose G Guzman MD HEMATOLOGY Performing Organization Address City/[facility]/ZIP Co de Phone Number [facility] [address] [place] [address], * (ABNORMAL) BUN (02/20/2024 1:13 PM CDT) BUN 32(H) 8 - 23 mg/dL 02/20/2024 2:37 PM CDT [facility] Blood BLOOD SPECIMEN / Unknown Venipuncture / Unknown 02/20/2024 1:13 PM CDT 02/20/2024 1:19 PM CDT Jose G Guzman MD CHEMISTRY [facility] [address] [place] [address], * (ABNORMAL) CREATININE (02/20/2024 1:13 PM CDT) eGFR 65(L) >90 mL/min/1.7 3m2 02/20/2024 2:37 PM CDT [facility] Comment:As of 2021, eG FR is calculated by the CKD-EPI creatinine equation without race adjustment. ??eGFR can be influenced by muscle mass, exercise, and diet. ??The reported eGFR is an estimation only and is only applicable if the renal function is stable. CREATININE 1.18 0.70 - 1.20 mg/dL 02/20/2024 2:37 PM CDT [facility] Blood BLOOD SPECIMEN / Unknown Venipuncture / Unknown 02/20/2024 1:13 PM CDT 02/20/2024 1:19 PM CDT Jose G Guzman MD CHEMISTRY Performing Organization Address [facility] Co de Phone Number [facility] [address] [address], * APTT (02/20/2024 1:13 PM CDT) Pathologist [facility] APTT 35 28 - 36 sec 02/20/2024 1:41 PM CDT [facility] Blood BLOOD SPECIMEN / Unknown Venipuncture / Unknown 02/20/2024 1:13 PM CDT 02/20/2024 1:19 PM CDT Narrative [facility] - 02/20/2024 1:41 PM CDT Therapeutic Range: 57-87 seconds Jose G Guzman MD HEMATOLOGY Performing Organization Address City/[facility]/ZIP Co de Phone Number [facility] [address] [place] [phone], [place] * XR PELVIS 1 VIEW (02/20/2024 7:27 AM CDT) Anatomical Region Laterality Modality Pelvis Digital Radiogra phy 02/20/2024 7:47 AM CDT Impressions 02/20/2024 7:47 AM CDT Very subtle left femoral neck fracture is better seen on CT than radiographs. Dictated by Chantell Bobby MD @ Feb 20 2024 ??7:47AM (Electronically Signed) [email or web address] Narrative 02/20/2024 7:47 AM CDT For Patients: [...] @ Feb 20 2024 7:47AM (Electronically Signed) [email or web address] Ellie ARMAS [facility] * SCAN-CARDIAC STRIP (02/20/2024 7:02 AM CDT) Scanner OTHER * SCAN-CARDIAC STRIP (02/19/2024 6:40 PM CDT) Scanner OTHER * (ABNORMAL) COMPREHENSIVE BLOOD GAS MIXED VENOUS (02/19/2024 10:03 AM CDT) O2 SATURATION, MEASURED, MIXED VENOUS 63(L) 70 - 75 % 02/19/2024 10:03 AM CDT [facility] TRAL LABORATORY PATIENT TEMPERATURE 37.0 Degrees C 02/19/2024 10:03 AM CDT [facility] TRAL LABORATORY HEMOGLOBIN,BLOO D GAS 10.3(L) 13.5 - 17.5 g/dL 02/19/2024 10:03 AM CDT [facility] Blood BLOOD SPECIMEN / Unknown 02/19/2024 10:03 AM CDT 02/20/2024 8:46 AM CDT Danay Fuchs MD [facility] [address] [place] [address], * CV Procedure to be Performed (02/19/2024 9:55 AM CDT) Narrative Jose G Guzman MD - 02/19/2024 9:55 AM CDT Jose G Guzman MD ? 02/19/2024 10:06 AM [facility] Advanced Heart Failure Procedure Note [...] ??Uncomplicated EBL: ??minimal Jose G Guzman MD [facility] Advanced Heart Failure/Transplant Cardiology/[facility] [place] [address] ?? Pager: [phone] Click for [email or web address] Kathleen ARMAS SERVICE STATION OPERATOR ORD * CVL OTHER PROCEDURE (02/19/2024 9:53 AM CDT) Anatomical Region Laterality Modality Other 02/19/2024 9:53 AM CDT Provider Referring CV IMAGING * (ABNORMAL) CBC WITH AUTO DIFFERENTIAL (02/19/2024 7:54 AM CDT) Only the most recent of2 resultswithin the time period is included. WHITE BLOOD COUNT 12.0(H) 4.5 - 11.0 thou/cu mm 02/19/2024 8:39 AM CDT [facility] TRAL LABORATORY RED BLOOD COUNT 3.37(L) 4.30 - 5.90 mil/cu mm 02/19/2024 8:39 AM CDT [facility] TRAL LABORATORY HEMOGLOBIN 10.7(L) 13.5 - 17.5 g/dL 02/19/2024 8:39 AM CDT [facility] TRAL LABORATORY HEMATOCRIT 32.8(L) 37.0 - 53.0 % 02/19/2024 8:39 AM [facility] TRAL LABORATORY MCV 97 80 - 100 fL 02/19/2024 8:39 AM [facility] TRAL LABORATORY MCH 31.8 26.0 - 34.0 pg 02/19/2024 8:39 AM [facility] TRAL LABORATORY MCHC 32.6 32.0 - 36.0 g/dL 02/19/2024 8:39 AM [facility] TRAL LABORATORY RDW 14.6 11.5 - 15.5 % 02/19/2024 8:39 AM [facility] TRAL LABOR[facility] PLATELET COUNT 273 140 - 440 thou/cu mm 02/19/2024 8:39 AM [facility] MPV 9.2 6.5 - 11.0 fL 02/19/2024 8:39 AM [facility] NRBC 0.0 % 02/19/2024 8:39 AM [facility] ABS NRBC 0.0 thou /cu mm 02/19/2024 8:39 AM [facility] % NEUT 55.8 % 02/19/2024 8:39 AM [facility] % LYMPH 25.2 % 02/19/2024 8:39 AM [facility] % MONO 15.4 % 02/19/2024 8:39 AM [facility] % EOS 2.1 % 02/19/2024 8:39 AM [facility] % BASO 0.7 % 02/19/2024 8:39 AM [facility] % IMMATURE GRAN (METAS,MYELOS,UT OS) 0.8 % 02/19/2024 8:39 AM [facility] ABSOLUTE NEUTROPHILS 6.7 1.7 - 7.0 thou/cu mm 02/19/2024 8:39 AM [facility] ABSOLUTE LYMPHOCYTES 3.0(H) 0.9 - 2.9 thou/cu mm 02/19/2024 8:39 AM [facility] ABSOLUTE MONOCYTES 1.9(H) <0.9 thou/cu mm 02/19/2024 8:39 AM [facility] ABSOLUTE EOSINOPHILS 0.3 <0.5 thou/cu mm 02/19/2024 8:39 AM [facility] ABSOLUTE BASOPHILS 0.1 <0.3 thou/cu mm 02/19/2024 8:39 AM CDT [facility] ABSOLUTE IMMATURE GRANULOCYTES(MET ,MYELOS,PROS) 0.1 <0.3 thou/cu mm 02/19/2024 8:39 AM CDT [facility] Blood BLOOD SPECIMEN / Unknown Venipuncture / Unknown 02/19/2024 7:54 AM CDT 02/19/2024 8:26 AM CDT Danay Fuchs MD HEMATOLOGY [facility] [address] [place] [address], * SCAN-CARDIAC STRIP (02/19/2024 7:30 AM CDT) [...] - 145 mmol/L 02/17/2024 9:23 PM CDT [facility] POTASSIUM 5.3(H) 3.5 - 5.1 mmol/L 02/17/2024 9:23 PM CDT [facility] CHLORIDE 99 98 - 107 mmol/L 02/17/2024 9:23 PM CDT [facility] CO2,TOTAL 25 22 - 29 mmol/L 02/17/2024 9:23 PM CDT [facility] ANION GAP 11 5 - 18 02/17/2024 9:23 PM CDT [facility] GLUCOSE 123(H) 70 - 99 mg/dL 02/17/2024 9:23 PM CDT [facility] CALCIUM 8.9 8.8 - 10.2 mg/dL 02/17/2024 9:23 PM CDT [facility] BUN 70(H) 8 - 23 mg/dL 02/17/2024 9:23 PM T [facility] CREATININE 1.69(H) 0.70 - 1.20 mg/dL 02/17/2024 9:23 PM CDT [facility] BUN/CREAT RATIO 41(H) 10 - 20 4 9:23 PM CDT [facility] eGFR 42(L) >90 mL/min/1.7 3m2 02/17/2024 9:23 PM CDT [facility] Comment:As of 2021, eG FR is calculated by the CKD-EPI creatinine equation without race adjustment. ??eGFR can be influenced by muscle mass, exercise, and diet. ??The reported eGFR is an estimation only and is only applicable if the renal function is stable. ALBUMIN 3.5(L) 4.0 - 4.9 g/dL 02/17/2024 9:23 PM CDT [facility] PROTEIN,TOTAL 6.2 6.0 - 8.0 g/dL 02/17/2024 9:23 PM CDT [facility] BILIRUBIN,TOTAL 0.9 0.0 - 1.2 mg/dL 02/17/2024 9:23 PM CDT [facility] ALK PHOSPHATASE 97 40 - 129 IU/L 02/17/2024 9:23 PM CDT [facility] ALT (SGPT) 24 10 - 50 IU/L 02/17/2024 9:23 PM CDT [facility] AST (SGOT) 42 10 - 50 IU/L 02/17/2024 9:23 PM CDT [facility] Blood BLOOD SPECIMEN / Unknown Venipuncture / Unknown 02/17/2024 8:40 PM CDT 02/17/2024 8:45 PM CDT Alba Ha DO CHEMISTRY [facility] [address] [place] [address], * (ABNORMAL) LIPID PANEL (01/07/2018 4:35 PM CDT) CHOLESTEROL,TOTAL 174 100 - 199 mg/dL 01/07/2018 6:28 PM CDT [facility] TRIGLYCERIDES 194(H) <150 mg/dL 01/07/2018 6:28 PM CDT [facility] HDL CHOLESTEROL 64 >40 mg/dL 8 6:28 PM CDT [facility] NON-HDL CHOLESTEROL 110 <145 mg/dl 01/07/2018 6:28 PM CDT [facility] CHOL/HDL RATIO 2.72 <4.50 01/07/2018 6:28 PM CDT [facility] LDL CHOLESTEROL 71 <=130 mg/dL 01/07/2018 6:28 PM CDT [facility] PROVIDER ORDERED STATUS RANDOM 01/07/2018 6:28 PM CDT [facility] Blood BLOOD SPECIMEN / Unknown Venipuncture / Unknown 01/07/2018 4:35 PM CDT 01/07/2018 4:39 PM CDT Aba Boo MD CHEMISTRY Performing Organization Address City/State/[facility] Co de Phone Number [address] [address] from Last 3 Months or Most Recently Relevant to Health Maintenance Advance Directives * Full Code (Latest Code Status on File) Date Activated Date Inactivated Comments 04/19/2024 9:12 AM 04/19/2024 12:58 PM Question Answer Comments Code Status Discussion: Reviewed Preferences * Full Code Date Activated Date Inactivated Comments 04/08/2024 2:45 [...] Comments Code Status Discussion: Other Care Teams Executive Business Coach Relationship Specialty Start Date End Date Aba Boo MD [address] [place] [address] PCP - General Family Practice 11/18/19 Destin Johnston MD [address] [address] Cardiology - CHF Cardiovascular Disease 04/14/20 Nurses, Advanced Heart Failure [address] [address] Advanced Heart Failure/Transplant Card 04/14/20
--- OUTSIDE RECORDS SUMMARY | 2024-04-21 12:55 | XMS_ITS | Clinical Summary ---
Author Organization [facility] Address [address] [address] Care Team Providers Care Tile Installer Name Role Phone Clinician, Not Found MD Primary Care Provider Un available Source Comments You are receiving this document as you are listed as the primary care provider,follow-up provider, or the patient has been referred to you for consultation.This is in compliance with the Medicare and[facility] EHR Incentive Program,which states Providers who transition their patient to another setting of careor provider of care or refers their patient to another provider of care shouldprovide summary care record for each transition of care or referral. [employer] Allergies No known active allergies Medications Medication [...] replacement 020 Overview: By Dr. Murrieta at [facility]. Ascending aorta dilation 06/15/2020 Overview: -09/09/11: [...] Description 02/12/2024 7:10 PM CDT Ancillary Procedure [facility] [address] [address] [address] [place] [address] Sanjay Leach, DO Pain of left hip 02/12/2024 6:50 PM CDT Office Visit [facility] [address] [place] [address] Sanjay Leach, DO Pain of [...] this topic Medical Devices Implanted Type Area Post Form Remover Device Identifier Shelf Expiration Date Model / Serial / Lot [employer] R 1x40 - [id number] Implanted:Qty: 2 on 06/15/2020 by Sanjay Murrieta MD at [facility] DEVICE Right: [employer] 07/29/2024 [id number] / / [id number] Patella All Poly Ply 41mm - [id number] Implanted:Qty: 1 on 06/15/2020 by Sanjay Murrieta MD at [facility] DEVICE Right: [employer] 06/28/2026 [id number] / / [id number] Comp Str [address] 14x+30 - [id number] Implanted:Qty: 1 on 06/15/2020 by Sanjay Murrieta MD at [facility] DEVICE Right: [employer] 11/26/2029 [id number] / / [id number] Stem Tib 5deg Szh Rt - [id number] Implanted:Qty: 1 on 06/15/2020 by Sanjay Murrieta MD at [facility] DEVICE Right: [employer] 01/26/2029 [id number] / / [id number] Comp Fem Ps Ccr Ps Std Sz12 Rt - [id number] Implanted:Qty: 1 on 06/15/2020 by Sanjay Murrieta MD at [facility] DEVICE Right: [employer] 06/28/2029 [id number] / / [id number] Asf Ps Ve 10mm 1012 Gh Rt - [id number] Implanted:Qty: 1 on 06/15/2020 by Sanjay Murrieta MD at [facility] DEVICE Right: [employer] 04/28/2021 [id number] / / [id number] Procedures Procedure Name Priority Date/Time Associated Diagnosis [...] 2:08 PM 06/17/2020 2:45 PM Care Teams Tile Installer Relationship Specialty Start Date End Date [facility] Not [facility] [address] P[facility] - General 06/23/20
== END 2024-04-21 12:54 | disposition home or self-care (01) ==
LOC: WOUND 12:53
PROVIDERS: PCP Family Medicine; Visit Provider Physician Assistant
DX: I87.332 Chronic venous hypertension (idiopathic) with ulcer and inflammation of left lower extremity (principal); I89.0 Lymphedema, not elsewhere classified; L97.822 Non-pressure chronic ulcer of other part of left lower leg with fat layer exposed
CPT/HCPCS: 97597; G0463

== ENCOUNTER 2024-04-28 14:37 | Outpatient (CLI) | payer MEDICARE, BC, SELFPAY ==
--- OUTSIDE RECORDS SUMMARY | 2024-04-28 14:39 | XMS_ITS | Encounter Summary ---
Author Organization [facility] Address [address] [address] Phone Care Team Providers Care Tax Services Intern Name Role Phone Aba Boo MD Primary Care Provider Reason for Visit * Reason Comments Pacemaker Problem Encounter Details Date Type Department Care Team (Late st Contact Info) Description 04/02/2024 3:26 PM CDT - 04/02/2024 4:45 PM CDT Emergency [facility] Emergency Department [address] [place] [address] [id number] Lee Frye, DO [address] [place] [address] [id number] Pacemaker complications, initial encounter (Primary Dx) Discharge [...] Code Departure Means Destination Home and/or Self Penitentiary documented in this encounter ED Notes * [...] certainly considered. Pacemaker was interrogated. Per pacemaker insurance claims representative the pacemaker is working appropriately. The [...] Disposition ED Disposition Discharge Condition Stable Comment [facility] thanks you for allowing us to assist you with your healthcare needs. This document contains patient education materials and information regarding your injury/illness. *If you need copies of your x-rays for a f ollow up appointment please call [phone] to arrangefor picking supervisor. If you had an IV in place [...] Primary documented in this encounter Care Teams Tax Services Intern Relationship Specialty Start Date End Date Aba Boo MD [facility] [address] [place] [address] PCP - General Family Medicine 04/02/24 documented as of this encounter
--- OUTSIDE RECORDS SUMMARY | 2024-04-28 14:39 | XMS_ITS | Encounter Summary ---
Author Organization [facility] Address [address] [address] Phone Care Team Providers Care Dispatcher Maintenance Service Name Role Phone Aba Boo MD Primary Care Provider [phone] Encounter Details Date Type Department Care Team [...] on filedocumented in this encounter Care Teams Dispatcher Maintenance Service Relationship Specialty Start Date End Date Aba Boo MD [facility] & [address] [address] PCP - General Family Medicine 04/02/24 documented as of this encounter
--- OUTSIDE RECORDS SUMMARY | 2024-04-28 14:39 | XMS_ITS | Encounter Summary ---
Author Organization [facility] Address [address] [address] Phone Care Team Providers Care Manager Heavy Equipment Name Role Phone Aba Boo MD Primary Care Provider [phone] Reason for Visit * Reason Comments Cardiac Device Check Encounter Details Date Type Department Care Team (Latest Contact Info) Description 04/02/2024 7:00 AM CDT Cardiac Device Remote [facility] [address] [place] [id number] Ancillary, [facility] Pacer Remote Monitor Sinoatrial node [...] the original note were not included. 04/02/24 [address]5 Remote Impression and Plan Place of Service [facility];In person Remote Monitoring;E.R.;ICD Final Impression Normal Remote Monitor with Events RVP > 40% NO Events/Comments In person care link from [facility]. Pt has been 100% AT/AF since 03/16/24 with ventricular rates 80-120s bpm for majority of time. Presenting egm supporting AT/AF VS 80-120 bpm. No ventricular events logged. Minimally HR SPECIALIST: 4.3%. Updated Dr. Frye via secure chat. Pt's device is beeping due to unsuccessful Dog [employer] Alert transmission. Pt needs to follow up with [facility] technical support and device clinic they follow with. Follow Up Plan follow-up as scheduled Plan of Care Full report under Media/CV tab Anticoagulation (No updated med list) Battery 2.8 yrs Atrial Fib [place] % 100 RVP % 4.3 Heart Rate [...] call notification and can be viewed in [employer]. Presenting rhythm: Associated attestation - Sanjay Alvarez [...] situ documented in this encounter Care Teams Manager Heavy Equipment Relationship Specialty Start Date End Date Aba Boo MD [facility] & [address] [address] PCP - General Family Medicine 04/02/24 documented as of this encounter
--- OUTSIDE RECORDS SUMMARY | 2024-04-28 14:39 | XMS_ITS | Clinical Summary ---
Author Organization [facility] Address [address] [address] Phone Care Team Providers Care Transport Tank Technician Name Role Phone Aba Boo MD Primary Care Provider [phone] Allergies No known active allergies Encounters Date Type Department Care Team Description 04/02/2024 3:26 PM CDT - 04/02/2024 4:45 PM CDT Emergency [facility] Emergency Department [address] [place] [address] Lee Frye, Pacemaker complications, initial encounter (Primary Dx) Discharge Disposition: Home and/or Self Care 04/02/2024 7:00 AM CDT Cardiac Device Remote [facility] [address] [place] [address] Ancillary, [facility] Pacer Remote Monitor Sinoatrial node dysfunction (HCC) [...] age to complete this topic Care Teams Transport Tank Technician Relationship Specialty Start Date End Date Aba Boo MD [facility] [address] [place] [address] PCP - General Family Medicine 04/02/24
--- OUTSIDE RECORDS SUMMARY | 2024-04-28 14:40 | XMS_ITS | Clinical Summary ---
Author Organization [facility] Address [place], [place] [address] Care Team Providers Care Roller Checker Name Role Phone Aba Boo MD Primary Care Provider + Destin Johnston MD Unavailable [phone] Nurses, Advanced Heart Failure Unavailable + [...] team clinicians. 15 Tablet 04/13/20 24 Active rivaroxaban (Xarelto) 20 mg tabletIndications :Atrial fibrillation, unspecified type (HC) Take 1 Tablet (20 mg) by mouth once daily with evening meal. 90 Tablet 3 04/13/20 24 Active rosuvastatin (CRESTOR) 10 mg tabletIndications :Coronary artery disease, unspecified vessel or lesion type, unspecified whether angina present, unspecified whether winneb[place] or transplanted heart Take 1 Tablet (10 [...] if needed for Itching. 04/19/20 24 Active amiodarone (CORDARONE) 200 mg tabletIndications :Atrial fibrillation, persistent (HC) Take 1 Tablet (200 mg) by mouth once daily. Take Amiodarone 400 mg (2 tabs) twice daily for 1 week; then 400 mg (2 tabs) for 1 month; then 200 mg (1 tab) once daily 90 Tablet 3 04/22/20 24 Active rivaroxaban (Xarelto) 20 mg tabletIndications :Atrial fibrillation, unspecified type (HC) Take 1 Tablet (20 mg) by mouth once daily with evening meal. 90 Tablet 3 02/11/20 23 024 Discontinued(Re order (E-cancel not sent)) rosuvastatin (CRESTOR) 10 mg tabletIndications :Coronary artery disease, unspecified vessel or lesion type, unspecified whether angina present, unspecified whether win[place] or transplanted heart Take 1 Tablet (10 mg) by mouth at bedtime. 90 Tablet 3 10/07/19 24 024 Discontinued(Re order (E-cancel not sent)) furosemide (LASIX) 20 mg tabletIndications :Chronic systolic heart failure (HC) Take 2 Tablets (40 mg) by mouth once daily. Dose increased by PCP (outside [facility]) 10/24. 10/24/19 24 024 Discontinued(Re order [...] 1 04/13/20 24 024 Discontinued(*M edication adjustment) sotaloL (BETAPACE) 80 mg tabletIndications :Atrial fibrillation, unspecified type (HC) Take 2 Tablets (160 mg) by mouth every 12 hours. 120 Tablet 04/13/20 24 024 Discontinued(*M ed complete/Regime n complete/Level of care change) Active Problems Problem Noted Date Diagnosed Date [...] and secondary concerned persons: Spouse Alexus Centeno [phone] Daughter Zuri [phone] Hypothyroidism 09/10/2011 Atrial fibrillation Overview: - 07/31/11: [...] Positive blood culture 10/18/202302/16 Hypotension 10/11/2023 02/17/2024 roasterman (current) use of anticoagulants 09/18/2011 12/03/2015 Osteoarth NOS-ankle 04/22/2007 12/03/19 16 Hypertension (HTN) 6 A-fib 07/03/2011 Overview: controlled on diltiazem Ascending aorta dilatation 1 11/26/2013 Overview: 09/09/11: S/p Aortic Valve Sparing Root Repair with a 34 mm Valsalva Graft and Left Sided MAZE with Ligation of Left Atrial Appendage by Dr. Ashton. Hypothyroidism 02/17/2024 Encounters Date Type Department Care Team Description 04/27/2024 10:15 AM CDT Ancillary Procedure [facility] Orthoped[facility] - [address] [place] [phone] Arrived 04/27/2024 9:45 AM CDT Office Visit [facility] [address] [place] [address] [address] [place] [address] Riaz Peterson MD Recheck (EP, non-displaced left femoral neck fracture DOI:02/11/2024, x-rays) 04/27/2024 Travel 04/25/[address] [place] [address] Dennis Barahona RN 04/22/2024 1:20 PM CDT Orders Only [facility] [address] [place] [address] Lab, [facility] 04/22/2024 Travel 04/20/2024 Telephone [facility] [address] [facility] [address] [place] [address] Marquis Santana MD Atrial Fibrillation 04/19/2024 9:05 AM CDT Anesthesia Event [facility] [address] [place] [address] Marco Aguiar MD Wilson, Timothy Eric, JAREN 04/19/2024 7:18 AM CDT - 04/19/2024 10:53 AM CDT Hospital Encounter [facility] [address] [place] [address] David Ugarte NP Gebre-Amlak, Kassatihun Debebe, MD Deviley, Sarah Jean, CRNA Atrial fibrillation, unspecified type (HC) (Primary Dx) Discharge Disposition: Home Self Care 04/19/2024 Travel 04/16/2024 7:06 AM CDT - 04/16/2024 10:07 AM CDT Hospital Encounter [facility] [address] [place] [address] Marquis Santana MD Wilson, Timothy Eric, CRNA Obesity, unspecified classification, unspecified obesity type, unspecified whether serious comorbidity present (Primary Dx); Chronic systolic heart failure (HC) Discharge Disposition: Home Self Care 04/16/2024 7:05 AM CDT Anesthesia Event [facility] [address] [place] [address] Placido Chowdhury CRNA 04/16/2024 Travel 04/15/2024 Telephone [facility] [address] [facility] [address] [place] [phone] Lianna Dominguez RN Device Check (AF alert) 04/14/2024 Telephone [facility] [address] [facility] [address] [place] [phone] Destin Johnston MD 04/13/2024 4:20 PM CDT Office Visit [facility] [address] [facility] [address] [place] [address] Rosalie Senior NP Heart Problem (Paroxysmal atrial fibrillation); Primary MD (Aba Boo MD/) 04/13/2024 8:00 AM CDT Office Visit [facility] [address] [facility] [address] [place], [place] [phone] Destin Johnston MD CV Heart Failure Est (STAT - IN PERSON F/U VISIT. LABS PRIOR @ [facility] /Acute on chronic HFrEF (heart failure with reduced ejection fraction) //pt states he is in a-fib. He got converted on and went to primary yesterday to confirm he is in A-fib still.//) 04/13/2024 Travel 04/10/2024 Telephone [facility] [address] [address] Marquis Banda, KELSEA Device Check (Patient thinks he back in AF) 04/08/2024 2:40 PM CDT Anesthesia Event [facility] [address] [place] [address] Zion Leigh MD 04/08/2024 12:19 PM CDT - 04/08/2024 3:58 PM CDT Hospital Encounter [facility] [address] [place] [address] Marquis Santana MD Wilson, Timothy Eric, CRNA Kushins, Stephen Isaac, MD Persistent atrial fibrillation (HC) (Primary Dx) Discharge Disposition: Home Self Care 04/08/2024 Travel 04/07/2024 Telephone [facility] [address] [address] Marquis Santana MD Schedule Cardioversion 04/05/2024 10:30 AM CDT Office Visit [address] [address] Kathleen Boyer PA Follow Up (follow up) 04/05/2024 Travel 04/02/2024 Telephone [facility] [address] [address] Susana Joyner I, KELSEA Device Check 04/02/2024 Telephone [facility] [address] [address] Destin Johnston MD Concerns (Defib beeping ) 03/30/2024 9:55 AM CDT Ancillary Procedure [address] [phone] 03/30/2024 9:50 AM CDT Ancillary Procedure [facility] [address] [facility] [address] [place] [address] 03/30/2024 9:30 AM CDT Office Visit [facility] [address] [facility] [address] [place] [address] Riaz Peterson MD Hip Pain/problem (left hip pain); Chest Injury (left side rib pain) 03/30/2024 Travel 03/29/2024 Telephone [facility] [address] [facility] [address] [place] [address] Riaz Peterson MD Questions 03/22/2024 Telephone [facility] [address] [facility] [address] [place] [address] Destin Johnston MD Follow Up (BP update) 03/19/2024 Orders Only [facility] [address] [facility] [address] [place] [address] Destin Johnston MD <No scans attached> 03/15/2024 10:28 PM CDT - 03/19/2024 11:22 AM CDT Hospital Encounter [facility] [address] [place] [address] Alan De Santiago MD Kiberenge, MD Kaleb Monroy, MD Keyla Mcgarry, DO Gerardo Lundberg Joseph Matthew, MD [facility] Hospitalists Of Left displaced femoral neck fracture (HC) (Primary Dx); Closed fracture of multiple ribs of left side, sequela; Closed fracture of neck of left femur with routine healing, subsequent encounter; Acute on chronic HFrEF (heart failure with reduced ejection fraction) (HC) Discharge Disposition: Home Self Care 03/15/2024 6:00 PM CD[address] Hospital Encounter [facility] [address] [place] [address] [facility] Hospitalists Of 03/15/2024 1:49 PM CDT Anesthesia Event [facility] [address] [place] [address] Eddie HuntanthonyJAREN 03/15/2024 12:13 PM CDT - 03/15/2024 9:18 PM CDT Emergency [facility] [address] [place] [address] Janina Valero MD Ball, Julieanne Patricia, MD Closed fracture of multiple ribs of left side, initial encounter (Primary Dx); Hypoxia; Hypotension, unspecified hypotension type; Laceration of multiple sites of left lower extremity, initial encounter Discharge Disposition: Crit Acc Hosp w Planned Readmission 03/15/2024 Telephone [facility] [address] [address] Erendira Sotomayor NP Letter (Request letter faxed on 03-12-24 be re-faxed as didn't receive the whole document.) 03/15/2024 Travel 03/12/2024 Telephone [facility] [address] [address] Erendira Sotomayor NP Questions 03/11/2024 8:35 AM CDT Ancillary Procedure [address] [employer] [address] [address] 03/11/2024 8:30 AM CDT Office Visit [address] [phone] Ellie Martinez PA Hip Pain/problem (Non-operative follow-up visit: non-displaced left femoral neck fracture) 03/11/2024 Travel 03/10/2024 Telephone [facility] [address] [facility] [address] [place] [address] Erendira Sotomayor NP Medication Management 03/09/[address] [employer] [facility] [address] [place] [address] Riaz Peterson MD 03/02/2024 1:00 PM CDT Office Visit [facility] [address] [place] [facility] [address] Ernedira Sotomayor, LIDYA CV Heart Failure Est (EST PT. [facility] F/U, LABS PRIOR AT [facility], H/O CHRONIC HFrEF) 03/02/2024 Travel 03/01/2024 Home Care Visit [facility] [address] [place] [address] Valentina Green, PT CARE COORDINATION 02/26/2024 11:40 AM CDT Ancillary Procedure [facility] [address] [place] [address] [address] [facility] [address] [place] [phone] 02/26/2024 11:00 AM CDT Office Visit [facility] [address] [facility] [address] [place] [phone] Riaz Peterson MD Hip Pain/problem (left hip pain) 02/26/2024 4:30 AM CDT Home Care Visit [facility] [address] [place] [address] Katharine Nivees, OT OT - MISSED VISIT 02/26/2024 Home Care Visit [facility] [address] [place] [address] Valentina Green, PT EPISODE DISCHARGE 02/26/2024 Travel 02/23/2024 9:30 AM CDT Home Care Visit [facility] [address] [place] [address] Brenda Moses, RN SN - OASIS START OF CARE 02/23/2024 Telephone [facility] [address] [place] [address] Brenda Moses, land mobile radio technician 02/23/2024 Plan of Care Documentation [facility] [address] [place] [address] 02/17/2024 8:19 PM CDT - 02/21/2024 11:03 AM CDT Hospital Encounter [facility] [address] [place] [address] Alba Ha, Rah Mcneal, DO Palafox, Lucio Lyon, DO Palacios, MD Shila Sampson Amy Sharon, MD [facility] Hospitalists Of Hematoma of left lower extremity, initial encounter (Primary Dx); Weakness; Weight gain; Cardiovascular symptoms; Closed fracture of neck of left femur, initial encounter (HC); Chronic HFrEF (heart failure with reduced ejection fraction) (HC); Cellulitis of left lower extremity Discharge Disposition: Home Health 02/17/2024 Travel 02/10/2024 9:30 AM CDT Office Visit [facility] [address] [facility] [address] [place] [address] Destin Johnston MD Office Visit (Appointment Note//IN PERSON F/U VISIT. LABS PRIOR//) 02/10/2024 8:30 AM CDT Orders Only [facility] [address] [facility] [address] [place] [address] Lab 02/10/2024 Travel 01/29/2024 Refill [facility] [address] [facility] [address] [place] [address] Destin Johnston MD Refill Request from Last [...] Care Team (Late st Contact Info) Description 04/30/2024 12:[address] [facility] [address] [place] [address] 06/21/2024 7:30 AM CDT Orders Only [facility] [address] [place] [address] Lab, [facility] 06/24/2024 8:00 AM CDT Office Visit [address] [place] [address] Destin Johnston MD [address] [facility] [address] [place] [address] 06/25/2024 Cardiac Device Check [facility] [phone] 06/29/2024 8:30 AM CDT Office Visit [facility] [place] [address] [facility] [address] [place] [phone] Riaz Peterson MD [address] [facility] [address] [place] [address] 06/29/2024 2:20 PM CDT Office Visit [facility] [address] [facility] [address] [place] [address] Rosalie Senior NP [address] [place] [address] 07/15/2024 Cardiac Device Check [facility] [phone] Health Maintenance Due Date Last Done Comments [...] history exists COVID-19 vaccine series (2 - 2022- season) 2023 06/27/2021 Influenza for age 65+ 05/30/2024 06/24/2013 BMI (ht and wt on same day) for age 18+ 04/13/2025 04/13/2024, 04/13/2024, 03/02/2024, Additional history exists AAA screening age 65-74 Completed 03/15/2024 Medical Devices Implanted Type Area Beautician Apprentice Device Identifier Shelf Expiration Date Model / Serial / Lot Graft Valsalva 34mm - [id number] Implanted:Qty: 1 on 09/09/2011 at [facility] [employer] in [place] [id number] / / Procedures Procedure Name Priority Date/Time Associated Diagnosis Comments TSH WITH REFLEX Routine 04/22/2024 1:29 PM CDT Hypothyroidism, unspecified type AST (SGOT) Routine 04/22/2024 1:29 PM CDT Therapeutic drug monitoring ALT (SGPT) Routine 04/22/2024 1:29 PM CDT Therapeutic drug monitoring EKG 12 LEAD Routine 04/19/2024 9:00 AM CDT Atrial fibrillation, unspecified type (HC) POTASSIUM,ISTAT Timed 04/19/2024 7:48 AM CDT EKG 12 LEAD Preop 04/19/2024 7:30 AM CDT SCAN-CARDIAC STRIP 04/19/2024 12 :00 AM CDT POTASSIUM,ISTAT Timed 04/16/2024 7:47 AM [...] STAT 03/15/2024 2:02 PM CDT [facility] AN IV START Routine 03/15/2024 1:33 PM CDT [facility] AN IV START Routine 03/15/2024 1:33 PM CDT [facility] AN IV START Routine 03/15/2024 1:33 PM CDT [facility] AN IV START Routine 03/15/2024 1:33 PM [...] Recently Relevant to Health Maintenance Results * TSH WITH REFLEX (04/22/2024 1:29 PM CDT) TSH 1.79 0.27 - 4.20 uIU/mL 04/22/2024 2:25 PM CDT [facility] Blood BLOOD SPECIMEN / Unknown Venipuncture / Unknown 04/22/2024 1:29 PM CDT 04/22/2024 1:29 PM CDT Narrative [facility] - 04/22/2024 2:25 PM CDT In Adults, TSH values between 5.00 and 10.00 uIU/ml do not necessarily indicate the presence of Hypothyroidism. Correlation with clinical findings such as presence of goiter and/or Thyroperoxidase (TPO) Antibody may be helpful. For more information please refer to YU 2004; 291: 228-238. Marquis Santana MD CHEMISTRY Performing Organization Address City/[facility]/ZIP Co de Phone Number [facility] [address] [place] [address] * ALT (SGPT) (04/22/2024 1:29 PM CDT) ALT (SGPT) 30 10 - 50 IU/L 04/22/2024 2:25 PM CDT [facility] Blood BLOOD SPECIMEN / Unknown Venipuncture / Unknown 04/22/2024 1:29 PM CDT 04/22/2024 1:29 PM CDT Marquis Santana MD CHEMISTRY Performing Organization Address City/[facility]/ZIP Co de Phone Number [facility] [address] [place] [address] * (ABNORMAL) AST (SGOT) (04/22/2024 1:29 PM CDT) AST (SGOT) 51(H) 10 - 50 IU/L 04/22/2024 2:25 PM CDT [facility] Blood BLOOD SPECIMEN / Unknown Venipuncture / Unknown 04/22/2024 1:29 PM CDT 04/22/2024 1:29 PM CDT Marquis Santana MD CHEMISTRY Performing Organization Address City/[facility]/ZIP Co de Phone Number [facility] [address] [place] [address] * EKG 12 LEAD (04/19/2024 9:00 AM CDT) Only the most recent of6 resultswithin the time period is included. Pathologist [facility] Interpretation Atrial fibrillation with Intermittent Pacing Possible Inferior infarct (cited on or before 10-Sep-2011) Anterior infarct (cited on or before 10-Sep-2011) Abnormal ECG When compared with ECG of 19-Apr-2024 07:30, Vent. rate has decreased by ??43 bpm Ventricular Rate 64 BPM Atrial Rate 64 BPM P-R Interval 208 ms QRS Duration 116 ms QT 454 ms QTc 468 ms P Franklin 73 degrees R Franklin -17 degrees T Franklin 47 degrees 04/19/2024 9:00 AM CDT 04/20/2024 7:54 AM CDT Narrative 04/20/2024 7:54 AM CDT Test Indication: PRE Rosalie Senior NP EKG ORD * POTASSIUM,ISTAT (04/19/2024 7:48 AM CDT) Only the most recent of3 resultswithin the time period is included. Pathologist [facility] POTASSIUM, POCT 3.9 3.5 - 5.0 mmol/L 04/19/2024 10:27 AM CDT [facility] Blood BLOOD SPECIMEN / Unknown 04/19/2024 7:48 AM CDT 04/19/2024 10:27 AM CDT David Ugarte NP [facility]Y [facility] [address] [place] [address], * SCAN-CARDIAC STRIP (04/19/2024 12:00 AM CDT) Narrative 04/19/2024 12:00 AM CDT Ordered by an unspecified provider. Other Clinical Staff OTHER * (ABNORMAL) PRO-BNP (04/08/2024 2:57 PM CDT) Only the most recent of4 resultswithin the time period is included. [facility] PRO-BNP 2,314(H) <125 pg/mL 04/08/2024 3:44 PM CDT [facility] Blood BLOOD SPECIMEN / Unknown Venipuncture / Unknown 04/08/2024 2:57 PM CDT 04/08/2024 3:03 PM CDT Narrative [facility] - 04/08/2024 3:44 PM CDT [...] failure. ? David Ugarte NP SEND OUTS [facility] [address] [place] [address], * (ABNORMAL) BASIC METABOLIC PANEL (04/08/2024 2:57 PM CDT) Only the most recent of12 resultswithin the time period is included. [facility] SODIUM 144 136 - 145 mmol/L 04/08/2024 3:44 PM CDT [facility] POTASSIUM 3.9 3.5 - 5.1 mmol/L 04/08/2024 3:44 PM CDT [facility] CHLORIDE 100 98 - 107 mmol/L 04/08/2024 3:44 PM CDT [facility] CO2,TOTAL 35(H) 22 - 29 mmol/L 04/08/2024 3:44 PM CDT [facility] ANION GAP 9 5 - 18 04/08/2024 3:44 PM CDT [facility] GLUCOSE 88 70 - 99 mg/dL 04/08/2024 3:44 PM CDT [facility] CALCIUM 9.1 8.8 - 10.2 mg/dL 04/08/2024 3:44 PM CDT [facility] BUN 21 8 - 23 mg/dL 04/08/2024 3:44 PM CDT [facility] CREATININE 0.92 0.70 - 1.20 mg/dL 04/08/2024 3:44 PM CDT [facility] BUN/CREAT RATIO 23(H) 10 - 20 3:44 PM CDT [facility] eGFR 88(L) >90 mL/min/1.7 3m2 04/08/2024 3:44 PM CDT [facility] Comment:As of 2021, eG FR [...] 3:03 PM CDT David Ugarte NP CHEMISTRY [facility] [address] [place] [address], [place] * EP CARDIOVERSION (04/08/2024 2:44 PM CDT) Anatomical Region Laterality Modality X-Ray Angiograph y Narrative 04/08/2024 2:44 PM CDT Seamus Cole MD ? 04/08/2024 ??4:11 PM [facility] Cardiac Electrophysiology Procedure Note DOS: 04/08/2024 Brief History: ??Rain Centeno is a pleasant 73 y.o. year old with history of persistent atrial fibrillation who now presents to OP NPO since midnight for direct current cardioversion. [...] time services were performed David Ugarte NP [facility] Cardiac Electrophysiology Seamus Cole MD Cardiac Arrhythmia Section [facility] Marquis Santana MD CV IMAGING * SCAN-CARDIAC [...] @ Mar ??5 2023 ??2:43PM (Electronically Signed) [email or web address] Narrative 04/02/2024 2:43 PM CDT For Patients: [...] @ Apr 02 2024 2:43PM (Electronically Signed) [email or web address] Riaz Peterson MD GENERAL IMAGING * XR [...] @ Mar ??2 2023 ??3:21PM (Electronically Signed) [email or web address] Narrative 03/30/2024 3:21 PM CDT For Patients: [...] @ Mar 30 2024 3:21PM (Electronically Signed) [email or web address] Riaz Peterson MD GENERAL IMAGING * SCAN-CARDIAC STRIP (03/19/2024 9:21 AM CDT) Scanner OTHER * (ABNORMAL) CBC W PLT NO DIFF (03/19/2024 4:50 AM CDT) Only the most recent of5 resultswithin the time period is included. WHITE BLOOD COUNT 10.1 4.5 - 11.0 thou/cu mm 03/19/2024 5:23 AM CDT [facility] RED BLOOD COUNT 3.48(L) 4.30 - 5.90 mil/cu mm 03/19/2024 5:23 AM CDT [facility] HEMOGLOBIN 10.2(L) 13.5 - 17.5 g/dL 03/19/2024 5:23 AM CDT [facility] HEMATOCRIT 33.9(L) 37.0 - 53.0 % 03/19/2024 5:23 AM CDT [facility] MCV 97 80 - 100 fL 03/19/2024 5:23 AM CDT [facility] MCH 29.3 26.0 - 34.0 pg 03/19/2024 5:23 AM CDT [facility] MCHC 30.1(L) 32.0 - 36.0 g/dL 03/19/2024 5:23 AM CDT [facility] RDW 14.8 11.5 - 15.5 % 03/19/2024 5:23 AM CDT [facility] PLATELET COUNT 227 140 - 440 thou/cu mm 03/19/2024 5:23 AM CDT [facility] MPV 9.4 6.5 - 11.0 fL 03/19/2024 5:23 AM CDT [facility] NRBC 0.0 % 03/19/2024 5:23 AM CDT [facility] ABS NRBC 0.0 thou /cu mm 03/19/2024 5:23 AM CDT [facility] Blood BLOOD SPECIMEN / Unknown Venipuncture / Unknown 03/19/2024 4:50 AM CDT 03/19/2024 5:14 AM CDT Varghese Mckenna MD HEMATOLOGY [facility] [address] [place] [address], * (ABNORMAL) HEPATIC FUNCTION PANEL (03/19/2024 4:50 AM CDT) Only the most recent of4 resultswithin the time period is included. ALBUMIN 3.3(L) 4.0 - 4.9 g/dL 03/19/2024 5:44 AM CDT [facility] PROTEIN,TOTAL 6.1 6.0 - 8.0 g/dL 03/19/2024 5:44 AM CDT [facility] BILIRUBIN,TOTAL 0.5 0.0 - 1.2 mg/dL 03/19/2024 5:44 AM CDT [facility] BILIRUBIN,DIRECT 0.2 0.0 - 0.3 mg/dL 03/19/2024 5:44 AM CDT [facility] BILIRUBIN,INDIRE CT 0.3 0.2 - 0.8 mg/dL 03/19/2024 5:44 AM CDT [facility] ALK PHOSPHATASE 122 40 - 129 IU/L 03/19/2024 5:44 AM CDT [facility] ALT (SGPT) 37 10 - 50 IU/L 03/19/2024 5:44 AM CDT [facility] AST (SGOT) 56(H) 10 - 50 IU/L 03/19/2024 5:44 AM CDT [facility] Blood BLOOD SPECIMEN / Unknown Venipuncture / Unknown 03/19/2024 4:50 AM CDT 03/19/2024 5:14 AM CDT Varghese Mckenna MD CHEMISTRY [facility] [address] [address], [place] * SCAN-CARDIAC STRIP (03/19/2024 12:01 AM CDT) Scanner OTHER * (ABNORMAL) GLUCOSE METER (03/18/2024 8:36 PM CDT) Only the most recent of17 resultswithin the time period is included. GLUCOSE METER 172(H) 65 - 100 mg/dL 03/18/2024 11:27 PM CDT [facility] Blood BLOOD SPECIMEN / Unknown 03/18/2024 8:36 PM CDT 03/18/2024 11:27 PM CDT Lee Carrillo MD CHEMISTRY Performing Organization Address City/[facility]/ZIP Co de Phone Number [facility] [address] [place] [address], [place] * US ARTERIAL LOWER EXTREMITY LEFT [...] - 4.20 uIU/mL 03/17/2024 10:19 PM CDT [facility] Blood BLOOD SPECIMEN / Unknown Venipuncture / Unknown 03/17/2024 4:18 AM CDT 03/17/2024 4:35 AM CDT Narrative [facility] - 03/17/2024 10:19 PM CDT In Adults, TSH values between 5.00 and 10.00 uIU/ml do not necessarily indicate the presence of Hypothyroidism. Correlation with clinical findings such as presence of goiter and/or Thyroperoxidase (TPO) Antibody may be helpful. For more information please refer to YU 2004; 291: 228-238. Shane Ramires DO CHEMISTRY Performing Organization Address City/[facility]/ZIP Co de Phone Number [facility] [address] [place] [address], * T4,FREE (03/17/2024 4:18 AM CDT) Pathologist [facility] T4,FREE 1.37 0.93 - 1.70 ng/dL 03/17/2024 10:51 PM CDT [facility] Blood BLOOD SPECIMEN / Unknown Venipuncture / Unknown 03/17/2024 4:18 AM CDT 03/17/2024 4:35 AM CDT [place] CHEMISTRY [facility] [address] [place] [address], * CK TOTAL (03/17/2024 4:18 AM CDT) Pathologist [facility] CK,TOTAL 133 39 - 308 IU/L 03/17/2024 9:43 PM CDT [facility] Blood BLOOD SPECIMEN / Unknown Venipuncture / Unknown 03/17/2024 4:18 AM CDT 03/17/2024 4:35 AM CDT Shane Ramires DO [facility]MISTRY [facility] [address] [place] [address], * CALCIUM IONIZED HOSPITAL DRAW ONLY (03/17/2024 4:18 AM CDT) Only the most recent of4 resultswithin the time period is included. CALCIUM,IONIZE D 1.18 1.15 - 1.27 mmol/L 03/17/2024 4:41 AM CDT [facility] Blood BLOOD SPECIMEN / Unknown Venipuncture / Unknown 03/17/2024 4:18 AM CDT 03/17/2024 4:35 AM CDT Estrella Flores MD CHEMISTRY [facility] [address] [place] [address], * SCAN-CARDIAC STRIP (03/16/2024 7:21 PM CDT) Scanner OTHER * (ABNORMAL) URINALYSIS MICROSCOPIC (03/16/2024 4:32 PM CDT) RBC 0-2 0-2, None Seen /HPF 03/16/2024 4:49 PM CDT [facility] WBC 0-2 0-2, 3-5, None Seen /HPF 03/16/2024 4:49 PM CDT [facility] BACTERIA None Seen None Seen, Rare, Few Bacteria/ HPF 03/16/2024 4:49 PM CDT [facility] EPITHELIAL CELLS None Seen None Seen, Few Epi/HPF 03/16/2024 4:49 PM CDT [facility] HYALINE CASTS 11-25(A) 0-2, 3-5 /LPF 03/16/2024 4:49 PM CDT [facility] Urine URINE SPECIMEN / Unknown Non-Blood / Unknown 03/16/2024 4:32 PM CDT 03/16/2024 4:40 PM CDT Lucio ARMAS URINE [facility] [address] [place] [address], [place] * (ABNORMAL) UA W/ SEDIMENT EXAM REFLEXED PER CRITERIA (03/16/2024 4:32 PM CDT) COLOR Yellow Yellow Color 03/16/2024 4:49 PM CDT [facility] CLARITY Clear Clear Clarity 03/16/2024 4:49 PM CDT [facility] SPECIFIC GRAVITY,URINE 1.015 1.010, 1.015, 1.020, 1.025 03/16/2024 4:49 PM CDT [facility] PH,URINE 5.0(A) 6.0, 7.0, 8.0, 5.5, 6.5, 7.5, 8.5 03/16/2024 4:49 PM CDT [facility] UROBILINOGEN, QUALITATIVE Normal Normal EU/dl 03/16/2024 4:49 PM CDT [facility] PROTEIN, URINE Trace(A) Negative mg/dL 03/16/2024 4:49 PM CDT [facility] GLUCOSE, URINE >=1000(A) Negative mg/dL 03/16/2024 4:49 PM CDT [facility] KETONES,URINE Negative Negative mg/dL 03/16/2024 4:49 PM CDT [facility] BILIRUBIN,URI NE Negative Negative 03/16/2024 4:49 PM CDT [facility] OCCULT BLOOD,URINE Negative Negative 03/16/2024 4:49 PM CDT [facility] NITRITE Negative Negative 03/16/2024 4:49 PM CDT [facility] LEUKOCYTE ESTERASE Negative Negative 03/16/2024 4:49 PM CDT [facility] Urine URINE SPECIMEN / Unknown Non-Blood / Unknown 03/16/2024 4:32 PM CDT 03/16/2024 4:40 PM CDT Lucio ARMAS URINE [facility] [address] [place] [address], * PROCALCITONIN (03/16/2024 4:08 PM CDT) PROCALCITONIN 0.04 ng/ml 03/16/2024 4:59 PM CDT [facility] Blood BLOOD SPECIMEN / Unknown Butterfly / Unknown 03/16/2024 4:08 PM CDT 03/16/2024 4:18 PM CDT Narrative [facility] - 03/16/2024 4:59 PM CDT [...] Lucio ARMAS SEND OUTS Performing Organization Address [facility] Co de Phone Number [facility] [address] [place] [address], * BLOOD CULTURE (03/16/2024 4:08 PM CDT) Only the most recent of2 resultswithin the time period is included. CULTURE No Growth. 03/20/2024 7:10 PM CDT [facility] Blood BLOOD SPECIMEN / Unknown Butterfly / Unknown 03/16/2024 4:08 PM CDT 03/16/2024 4:18 PM CDT Narrative [facility] - 03/20/2024 7:10 PM CDT Low volume blood culture received; possible false negative culture. Lucio ARMAS MICROBIOLOGY Performing Organization Address City/[facility]/ZIP Co de Phone Number [facility] [address] [place] [address], * ICD ANALYSIS DUAL WITHOUT REPROGRAM (03/16/2024 3:32 PM CDT) Narrative Marquis Santana MD - 03/16/2024 3:32 PM CDT Cyndi Arnold RN ? 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 All HV pathways have been programmed B>AX. Location of evaluation: [facility] Reason for evaluation: Provider Request MEASUREMENTS Atrial [...] charge, 35 J x 6 ? NID: 30 FINAL BRADYCARDIA PARAMETERS Mode: AAI <=> DDD [...] 4 months via [employer] remote with annual [place] or clinic with Dr. Santana each February. Cyndi Arnold, RN Nurse Clinician II [facility] Pacemaker/ICD Clinic Marquis Santana MD CARDIAC SERVICES ORD * EXTRA TUBE LIGHT GREEN (03/16/2024 1:23 PM CDT) Blood BLOOD SPECIMEN / Unknown Non-Lab Venipuncture / Unknown 03/16/2024 1:23 PM CDT 03/16/2024 1:33 PM CDT Estrella Flores MD LABORATORY [facility] [address] [place] [address], * (ABNORMAL) BLOOD GAS,VENOUS (03/16/2024 1:23 PM CDT) PH, VENOUS 7.31(L) 7.32 - 7.43 03/16/2024 1:36 PM CDT [facility] PCO2, VENOUS 68(H) 41 - 51 mmHg 03/16/2024 1:36 PM CDT [facility] PO2, VENOUS 63(H) 35 - 40 mmHg 03/16/2024 1:36 PM CDT [facility] HCO3,VENOUS 34(H) 22 - 29 mmol/L 03/16/2024 1:36 PM CDT [facility] BASE EXCESS, VENOUS, POCT 5.6(H) -2.0 - 3.0 03/16/2024 1:36 PM CDT [facility] O2 SATURATION, VENOUS 93(H) 70 - 75 % 03/16/2024 1:36 PM CDT [facility] PATIENT TEMPERATURE 37.0 Degrees C 03/16/2024 1:36 PM CDT [facility] Blood VENOUS BLOOD SPECIMEN / Unknown Butterfly / Unknown 03/16/2024 1:23 PM CDT 03/16/2024 1:31 PM CDT Estrella Flores MD CHEMISTRY Performing Organization Address City/[facility]/ZIP Co de Phone Number [facility] [address] [place] [address], * LACTATE VENOUS (03/16/2024 1:22 PM CDT) Only the most recent of3 resultswithin the time period is included. LACTATE,VENOUS 0.8 0.5 - 2.0 mmol/L 03/16/2024 2:38 PM CDT [facility] Blood BLOOD SPECIMEN / Unknown Butterfly / Unknown 03/16/2024 1:22 PM CDT 03/16/2024 1:31 PM CDT Lucio ARMAS CHEMISTRY Performing Organization Address City/[facility]/ZIP Co de Phone Number [facility] [address] [place] [address], * (ABNORMAL) HEMOGLOBIN (03/16/2024 1:22 PM CDT) Only the most recent of8 resultswithin the time period is included. HEMOGLOBIN 11.1(L) 13.5 - 17.5 g/dL 03/16/2024 1:39 PM CDT [facility] MCV 101(H) 80 - 100 fL 03/16/2024 1:39 PM CDT [facility] Blood BLOOD SPECIMEN / Unknown Butterfly / Unknown 03/16/2024 1:22 PM CDT 03/16/2024 1:31 PM CDT Lucio ARMAS HEMATOLOGY Performing Organization Address [facility]/ZIP Co de Phone Number [facility] [address] [place] [address], * (ABNORMAL) FACTOR 10 CHROMOGENIC (03/16/2024 1:22 PM CDT) FACTOR 10 CHROMOGENIC 41(L) 65 - 130 % 03/16/2024 1:46 PM CDT [facility] Blood BLOOD SPECIMEN / Unknown Butterfly / Unknown 03/16/2024 1:22 PM CDT 03/16/2024 1:31 PM CDT Narrative [facility] - 03/16/2024 1:46 PM CDT Therapeutic Range 20-40% Lucio ARMAS SEND OUTS Performing Organization Address [facility] Co de Phone Number [facility] [address] [place] [address], * CORTISOL TOTAL (03/16/2024 10:29 AM CDT) CORTISOL,TOTAL 15.0 ug/dL 03/16/2024 1:29 PM CDT [facility] Blood BLOOD SPECIMEN / Unknown Non-Lab Venipuncture / Unknown 03/16/2024 10:29 AM CDT 03/16/2024 10:35 AM CDT Narrative [facility] - 03/16/2024 1:29 PM CDT Cortisol ?Morning Hours ?6:00 ??AM - 10:00 AM ?(4.8-19.5 ug/dL) Cortisol ?Afternoon Hours ??4:00 ??PM - ??8:00 PM ?(2.5-11.9 ug/dL) ? Biotin supplements may cause clinically significant interference for this test assay. ??If interference is suspected, it is strongly recommended that biotin is discontinued for at least one week prior to retesting. Estrella Flores MD CHEMISTRY [facility] [address] [place] [address], * ECHO TTE LIMITED W CONTRAST W COLOR W DOPPLER (03/16/2024 10:23 AM CDT) Only the most recent of2 resultswithin the time period is included. AORTIC VALVE MEAN PG 7 mmHg EJECTION FRACTION 50 - 55% Anatomical Region Laterality Modality Ultrasound 03/16/2024 9:42 AM CDT Narrative 03/16/2024 11:06 AM CDT ECHOCARDIOGRAM RAIN CENTENO ? Accession#: ?? [id number] : ?1950 73 years Study Date: ?? 03/16/2024 9:42:01 AM Gender: M ?BP: ? 84/55 mmHg Height: 137.00 cm ?BSA: ?2.42 m? ? ? Weight: 200.00 kg ?Tech: ? OLL ? Referring MD: ESTRELLA FLORES Site: ? [facility] Reading Location: ANW IP Patient Location: [...] documentation: 2 ml diluted Definity, lot #[id number], [facility]# [id number] was administered peripherally to enhance visualization of all left ventricular segments. . This study was interpreted by an [facility] accredited facility. ??Final ?? Procedure Note Leonel Montanez MD - 03/16/2024 ECHOCARDIOGRAM RAIN CENTENO : 1950 73 years Study Date: 03/16/2024 9:42:01 AM Gender: M BP: 84/55 mmHg Height: 137.00 cm BSA: 2.42 m? ? ? Weight: 200.00 kg Tech: ANGIE Referring MD: ESRTELLA FLORES Site: [facility] Reading Location: ANW Patient Location: Inpatient. Procedure: [...] documentation: 2 ml diluted Definity, lot #[id number], [facility]#[id number] was administered peripherally to enhance visualization of allleft ventricular segments. . This study was interpreted by an [facility] accredited facility. Final Estrella Flores MD [...] 6-15 ng/L ng/L 03/15/2024 8:14 PM CDT [facility] Blood BLOOD SPECIMEN / Unknown Venipuncture / Unknown 03/15/2024 7:54 PM CDT 03/15/2024 7:56 PM CDT Janina Valero MD CHEMISTRY [facility] [address] [place] [address] * CT CERVICAL SPINE WO (03/15/2024 2:10 [...] no acute abnormality. Procedure Note Krzysztof Ellis, - 03/15/2024 For [...] 6-15 ng/L ng/L 03/15/2024 8:01 PM CDT [facility] Blood BLOOD SPECIMEN / Unknown Venipuncture / Unknown 03/15/2024 12:48 PM CDT 03/15/2024 12:57 PM CDT [facility] - 03/15/2024 8:01 PM CDT [id number] [...] Janina Valero MD CHEMISTRY Performing Organization Address City/State/[facility] Co de Phone Number [facility] [address] [place] [phone] * Type and Screen (03/15/2024 12:48 PM CDT) Only the most recent of2 resultswithin the time period is included. ABORH O Rh Positive 03/15/2024 1:29 PM CDT [facility] BLOOD BANK ANTIBODY SCREEN Negative Negative 03/15/2024 1:29 PM CDT [facility] BLOOD BANK SPECIMEN EXPIRATION DATE/TIME 03/18/24 23:59 03/15/2024 1:29 PM CDT [facility] BLOOD BANK Blood BLOOD SPECIMEN / Unknown Venipuncture / Unknown 03/15/2024 12:48 PM CDT 03/15/2024 12:57 PM CDT Janina Valero MD BLOOD BANK Performing Organization Address [facility] de Phone Number [facility] BLOOD BANK [address] [place] [address] * (ABNORMAL) PROTIME- INR (03/15/2024 12:48 PM CDT) Only the most recent of3 resultswithin the time period is included. INR 2.4(H) <1.3 03/15/2024 1:09 PM CDT [facility] PROTIME 26.0(H) 10.3 - 12.3 sec 03/15/2024 1:09 PM CDT [facility] Blood BLOOD SPECIMEN / Unknown Venipuncture / Unknown 03/15/2024 12:48 PM CDT 03/15/2024 12:57 PM CDT Narrative [facility] - 03/15/2024 1:09 PM CDT [...] Janina Valero MD HEMATOLOGY Performing Organization Address [facility] Co de Phone Number [facility] [address] [place] [address] * SCAN-CARDIAC STRIP (02/21/2024 9:16 AM CDT) Scanner OTHER * Platelets AM (02/21/2024 7:50 AM CDT) Only the most recent of3 resultswithin the time period is included. PLATELET COUNT 280 140 - 440 thou/cu mm 02/21/2024 8:10 AM CDT [facility] MPV 8.7 6.5 - 11.0 fL 02/21/2024 8:10 AM CDT [facility] Blood BLOOD SPECIMEN / Unknown Venipuncture / Unknown 02/21/2024 7:50 AM CDT 02/21/2024 8:01 AM CDT Danay Fuchs MD HEMATOLOGY [facility] [address] [place] [address], [place] * (ABNORMAL) WBC AM (02/21/2024 7:50 AM CDT) Only the most recent of2 resultswithin the time period is included. WHITE BLOOD COUNT 12.5(H) 4.5 - 11.0 thou/cu mm 02/21/2024 8:10 AM CDT [facility] NRBC 0.0 % 02/21/2024 8:10 AM CDT [facility] ABS NRBC 0.0 thou /cu mm 02/21/2024 8:10 AM CDT [facility] Blood BLOOD SPECIMEN / Unknown Venipuncture / Unknown 02/21/2024 7:50 AM CDT 02/21/2024 8:01 AM CDT Danay Fuchs MD HEMATOLOGY [facility] [address] [place] [address], [place] * Magnesium AM (02/21/2024 7:50 AM CDT) Only the most recent of4 resultswithin the time period is included. MAGNESIUM 2.4 1.6 - 2.4 mg/dL 02/21/2024 8:30 AM CDT [facility] Blood BLOOD SPECIMEN / Unknown Venipuncture / Unknown 02/21/2024 7:50 AM CDT 02/21/2024 8:02 AM CDT Tayler Woodward NP CHEMISTRY Performing Organization Address [facility]/ZIP Co de Phone Number [facility] [address] [place] [address], * SCAN-CARDIAC STRIP (02/21/2024 4:55 AM CDT) Scanner OTHER * (ABNORMAL) HEMATOCRIT (02/20/2024 1:13 PM CDT) HEMATOCRIT 32.4(L) 37.0 - 53.0 % 02/20/2024 1:30 PM CDT [facility] Blood BLOOD SPECIMEN / Unknown Venipuncture / Unknown 02/20/2024 1:13 PM CDT 02/20/2024 1:19 PM CDT Narrative [facility] - 02/20/2024 1:30 PM CDT Obtain before initiating IV heparin therapy if not done within previous 24 hours. Obtain before initiating IV heparin therapy if not done within previous 24 hours. Obtain before initiating IV heparin therapy if not done within previous 24 hours. Jose G Guzman MD HEMATOLOGY Performing Organization Address [facility] Co de Phone Number [facility] [address] [place] [address], * (ABNORMAL) BUN (02/20/2024 1:13 PM CDT) BUN 32(H) 8 - 23 mg/dL 02/20/2024 2:37 PM CDT [facility] Blood BLOOD SPECIMEN / Unknown Venipuncture / Unknown 02/20/2024 1:13 PM CDT 02/20/2024 1:19 PM CDT Jose G Guzman MD CHEMISTRY [facility] [address] [place] [address], * (ABNORMAL) CREATININE (02/20/2024 1:13 PM CDT) eGFR 65(L) >90 mL/min/1.7 3m2 02/20/2024 2:37 PM CDT [facility] Comment:As of 2021, eG FR is calculated by the CKD-EPI creatinine equation without race adjustment. ??eGFR can be influenced by muscle mass, exercise, and diet. ??The reported eGFR is an estimation only and is only applicable if the renal function is stable. CREATININE 1.18 0.70 - 1.20 mg/dL 02/20/2024 2:37 PM CDT [facility] Blood BLOOD SPECIMEN / Unknown Venipuncture / Unknown 02/20/2024 1:13 PM CDT 02/20/2024 1:19 PM CDT Jose G Guzman MD CHEMISTRY Performing Organization Address City/[facility]/ZIP Co de Phone Number [facility] [address] [place] [address], [place] * APTT (02/20/2024 1:13 PM CDT) Pathologist [facility] APTT 35 28 - 36 sec 02/20/2024 1:41 PM CDT [facility] Blood BLOOD SPECIMEN / Unknown Venipuncture / Unknown 02/20/2024 1:13 PM CDT 02/20/2024 1:19 PM CDT Narrative [facility] - 02/20/2024 1:41 PM CDT Therapeutic Range: 57-87 seconds Jose G Guzman MD HEMATOLOGY Performing Organization Address City/[facility]/ZIP Co de Phone Number [facility] [address] [place] [address], * XR PELVIS 1 VIEW (02/20/2024 7:27 AM CDT) Anatomical Region Laterality Modality Pelvis Digital Radiogra phy 02/20/2024 7:47 AM CDT Impressions 02/20/2024 7:47 AM CDT Very subtle left femoral neck fracture is better seen on CT than radiographs. Dictated by Chantell Bobby MD @ Feb 20 2024 ??7:47AM (Electronically Signed) [email or web address] Narrative 02/20/2024 7:47 AM CDT For Patients: [...] @ Feb 20 2024 7:47AM (Electronically Signed) [email or web address] Ellie ARMAS GENERAL IMAGING * SCAN-CARDIAC STRIP (02/20/2024 7:02 AM CDT) Scanner OTHER * SCAN-CARDIAC STRIP (02/19/2024 6:40 PM CDT) Scanner OTHER * (ABNORMAL) COMPREHENSIVE BLOOD GAS MIXED VENOUS (02/19/2024 10:03 AM CDT) O2 SATURATION, MEASURED, MIXED VENOUS 63(L) 70 - 75 % 02/19/2024 10:03 AM CDT [facility] PATIENT TEMPERATURE 37.0 Degrees C 02/19/2024 10:03 AM CDT [facility] HEMOGLOBIN,BLOO D GAS 10.3(L) 13.5 - 17.5 g/dL 02/19/2024 10:03 AM CDT [facility] Blood BLOOD SPECIMEN / Unknown 02/19/2024 10:03 AM CDT 02/20/2024 8:46 AM CDT Danay Fuchs MD [facility] [address] [place], [place] [id number], * CV Procedure to be Performed (02/19/2024 9:55 AM CDT) Narrative Jose G Guzman MD - 02/19/2024 9:55 AM CDT Jose G Guzman MD ? 02/19/2024 10:06 AM [facility] Advanced Heart Failure Procedure Note Right [...] ??Uncomplicated EBL: ??minimal Jose G Guzman MD [facility] Advanced Heart Failure/Transplant Cardiology/[facility] [place] [address] ?? Pager: [phone] Click for [email or web address] Kathleen ARMAS WEB CONTENT MANAGER ORD * CVL OTHER PROCEDURE (02/19/2024 9:53 AM CDT) Anatomical Region Laterality Modality Other 02/19/2024 9:53 AM CDT Provider Referring CV IMAGING * (ABNORMAL) CBC WITH AUTO DIFFERENTIAL (02/19/2024 7:54 AM CDT) Only the most recent of2 resultswithin the time period is included. WHITE BLOOD COUNT 12.0(H) 4.5 - 11.0 thou/cu mm 02/19/2024 8:39 AM CDT [facility] RED BLOOD COUNT 3.37(L) [...] [facility]INIC [facility] % IMMATURE GRAN (METAS,MYELOS,WI OS) 0.8 % 02/19/2024 8:39 AM CDT [facility] ABSOLUTE NEUTROPHILS 6.7 1.7 - 7.0 thou/cu mm 02/19/2024 8:39 AM CDT [facility] ABSOLUTE LYMPHOCYTES 3.0(H) 0.9 - 2.9 thou/cu mm 02/19/2024 8:39 AM CDT [facility] ABSOLUTE MONOCYTES 1.9(H) <0.9 thou/cu mm 02/19/2024 8:39 AM CDT [facility] ABSOLUTE EOSINOPHILS 0.3 <0.5 thou/cu mm 02/19/2024 8:39 AM CDT [facility] ABSOLUTE BASOPHILS 0.1 <0.3 thou/cu mm 02/19/2024 8:39 AM CDT [facility] ABSOLUTE IMMATURE GRANULOCYTES(MET ,MYELOS,PROS) 0.1 <0.3 thou/cu mm 02/19/2024 8:39 AM CDT [facility] Blood BLOOD SPECIMEN / Unknown Venipuncture / Unknown 02/19/2024 7:54 AM CDT 02/19/2024 8:26 AM CDT Danay Fuchs MD HEMATOLOGY [facility] [address] [place] [address], * SCAN-CARDIAC STRIP (02/19/2024 7:30 AM CDT) [...] - 145 mmol/L 02/17/2024 9:23 PM CDT [facility] POTASSIUM 5.3(H) 3.5 - 5.1 mmol/L 02/17/2024 9:23 PM CDT [facility] CHLORIDE 99 98 - 107 mmol/L 02/17/2024 9:23 PM CDT [facility] CO2,TOTAL 25 22 - 29 mmol/L 02/17/2024 9:23 PM CDT [facility] ANION GAP 11 5 - 18 02/17/2024 9:23 PM CDT [facility] GLUCOSE 123(H) 70 - 99 mg/dL 02/17/2024 9:23 PM CDT [facility] CALCIUM 8.9 8.8 - 10.2 mg/dL 02/17/2024 9:23 PM CDT [facility] BUN 70(H) 8 - 23 mg/dL 02/17/2024 9:23 PM CDT [facility] CREATININE 1.69(H) 0.70 - 1.20 mg/dL 02/17/2024 9:23 PM CDT [facility] BUN/CREAT RATIO 41(H) 10 - 20 9:23 PM CDT [facility] eGFR 42(L) >90 mL/min/1.7 3m2 02/17/2024 9:23 PM CDT [facility] Comment:As of 2021, eG FR is calculated by the CKD-EPI creatinine equation without race adjustment. ??eGFR can be influenced by muscle mass, exercise, and diet. ??The reported eGFR is an estimation only and is only applicable if the renal function is stable. ALBUMIN 3.5(L) 4.0 - 4.9 g/dL 02/17/2024 9:23 PM CDT [facility] PROTEIN,TOTAL 6.2 6.0 - 8.0 g/dL 02/17/2024 9:23 PM CDT [facility] BILIRUBIN,TOTAL 0.9 0.0 - 1.2 mg/dL 02/17/2024 9:23 PM CDT [facility] ALK PHOSPHATASE 97 40 - 129 IU/L 02/17/2024 9:23 PM CDT [facility] ALT (SGPT) 24 10 - 50 IU/L 02/17/2024 9:23 PM CDT [facility] AST (SGOT) 42 10 - 50 IU/L 02/17/2024 9:23 PM CDT [facility] Blood BLOOD SPECIMEN / Unknown Venipuncture / Unknown 02/17/2024 8:40 PM CDT 02/17/2024 8:45 PM CDT Alba Ha DO CHEMISTRY [facility] [address] [place] [address], * (ABNORMAL) LIPID PANEL (01/07/2018 4:35 PM CDT) CHOLESTEROL,TOTAL 174 100 - 199 mg/dL 01/07/2018 6:28 PM CDT [facility] TRIGLYCERIDES 194(H) <150 mg/dL 01/07/2018 6:28 PM CDT [facility] HDL CHOLESTEROL 64 >40 mg/dL 8 6:28 PM CDT [facility] NON-HDL CHOLESTEROL 110 <145 mg/dl 01/07/2018 6:28 PM CDT [facility] CHOL/HDL RATIO 2.72 <4.50 01/07/2018 6:28 PM CDT [facility] LDL CHOLESTEROL 71 <=130 mg/dL 01/07/2018 6:28 PM CDT [facility] PROVIDER ORDERED STATUS RANDOM 01/07/2018 6:28 PM CDT [facility] Blood BLOOD SPECIMEN / Unknown Venipuncture / Unknown 01/07/2018 4:35 PM CDT 01/07/2018 4:39 PM CDT Aba Boo MD CHEMISTRY Performing Organization Address City/State/[facility] Co de Phone Number [facility] [address] [place] [address] from Last 3 Months or Most Recently [...] Comments Code Status Discussion: Other Care Teams Roller Checker Relationship Specialty Start Date End Date Aba Boo MD [address] [place] [address] PCP - General Family Practice 11/18/19 Destin Johnston MD [address] [place] [address] Cardiology - CHF Cardiovascular Disease 04/14/20 Nurses, Advanced Heart Failure [address] [place] [address] Advanced Heart Failure/Transplant Card 04/14/20
--- OUTSIDE RECORDS SUMMARY | 2024-04-28 14:40 | XMS_ITS | Clinical Summary ---
Author Organization [facility] Address [address] [place] [address] Care Team Providers Care Gluing Pressman Name Role Phone Clinician, Not Found MD Primary Care Provider Un available Source Comments You are receiving this document as you are listed as the primary care provider,follow-up provider, or the patient has been referred to you for consultation.This is in compliance with the Medicare and[facility] EHR Incentive Program,which states Providers who transition their patient to another setting of careor provider of care or refers their patient to another provider of care shouldprovide summary care record for each transition of care or referral. Arden Reed Allergies No known active allergies Medications Medication [...] [facility]. Ascending aorta dilation 06/15/2020 Overview: -09/09/11: S/p [...] Description 02/12/2024 7:10 PM CDT Ancillary Procedure [place] [facility] [place] [address] [address] [address] [place] [address] Sanjay Leach, DO Pain of left hip 02/12/2024 6:50 PM CDT Office Visit [facility] [address] [place] [address] Sanjay Leach, DO Pain of [...] this topic Medical Devices Implanted Type Area Development Lead Device Identifier Shelf Expiration Date Model / Serial / Lot Mohan Bone Biomet R 1x40 - [id number] Implanted:Qty: 2 on 06/15/2020 by Sanjay Murrieta MD at [facility] DEVICE Right: [employer] 07/29/2024 [id number] / / [id number] Patella All Poly Ply 41mm - [id number] Implanted:Qty: 1 on 06/15/2020 by Sanjay Murrieta MD at [facility] DEVICE Right: [employer] 06/28/2026 [id number] / / [id number] Comp Str Hyb [address] 14x+30 - [id number] Implanted:Qty: 1 on 06/15/2020 by Sanjay Murrieta MD at [facility] DEVICE Right: [employer] 11/26/2029 [id number] / / [id number] Stem Tib 5deg Szh Rt - [id number] Implanted:Qty: 1 on 06/15/2020 by Sanjay Murrieta MD at [facility] DEVICE Right: [employer] 01/26/2029 [id number] / / [id number] Comp Fem Ps Ccr Ps Std Sz12 Rt - [id number] Implanted:Qty: 1 on 06/15/2020 by Sanjay Murrieta MD at [facility] DEVICE Right: [employer] 06/28/2029 [id number] / / [id number] Asf Ps Ve 10mm 1012 Gh Rt - [id number] Implanted:Qty: 1 on 06/15/2020 by Sanjay Murrieta MD at [facility] DEVICE Right: [employer] 04/28/2021 [id number] / / [id number] Procedures Procedure Name Priority Date/Time Associated Diagnosis [...] 2:08 PM 06/17/2020 2:45 PM Care Teams Gluing Pressman Relationship Specialty Start Date End Date [facility] [address] PCP - General 06/23/20
--- OUTSIDE RECORDS SUMMARY | 2024-04-28 14:40 | XMS_ITS | Encounter Summary ---
Author Organization [facility] Address [address] [place] [address] Care Team Providers Care Bus Repair Supervisor Name Role Phone Clinician, Not Found MD Primary Care Provider Un available Reason for Referral * Therapies (Routine) - New Request Specialty Diagnoses / Procedures Referred By Contrashaun paz Referred To Contact Diagnoses Pain of left hip Conner Boudreaux DO [address] [place] [address] Referral ID Status Reason Start Date Expiration Date V isits Requested Visits Authorized [id number] New Request 02/12/2024 02/11/2025 999 999 Scheduling Instructions Your clinician recommended an appointment with [facility]. You can quickly make your appointment online at [email or web address]. You can also call [phone] for help scheduling your appointment. We suggest [...] Diagnoses Left foot pain Conner Boudreaux DO [address] [place] [address] [address] Referral ID Status Reason Start Date Expiration Date V isits Requested Visits Authorized [id number] New Request 02/12/2024 05/13/2025 1 1 Scheduling Instructions Your clinician has recommended an appointment with [facility]. You can quickly make your appointment online at [email or web address]. You can also call [phone] for help scheduling your appointment. We suggest [...] Conner Boudreaux DO [address] [place] [address] Referral ID Status Reason Start Date Expiration Date V isits Requested Visits Authorized [id number] Incomplete 02/12/2024 05/13/2025 1 1 Reason for Visit * Reason Comments LEG PAIN Back of buttocks jay n leg pain since last night Encounter Details Date Type Department Care Team (Late st Contact Info) Description 02/12/2024 6:50 PM CDT Office Visit [facility] [address] [place] [address] Conner Boudreaux DO [address] [facility] [place] [place] [address] Pain of left hip (Primary Dx); Left [...] Schedule your physical therapy appointment by calling [phone]. The following medications were prescribed at your visit : Orders Placed This Encounter Medications HYDROcodone-acetaminophen (NORCO) 5-325 MG tablet Sig: Take 1 Tablet by mouth every 8 hours as needed for Pain. Dispense: 12 Tablet Refill: 0 Medication Refill Requests: Prescription Refill Requests are not filled on Weekends or on Weekdays after 3:00PM For all medication refills: Request a refill using [employer] or contact your Pharmacy documented in this encounter Progress Notes * Conner Boudreaux DO - 02/12/2024 12:00 AM CDT NAME: MERRICK CENTENO CSN: [id number] CLINIC NOTE DATE OF SERVICE: 02/12/2024 : [...] it worse. PAST MEDICAL HISTORY: Reviewed in [facility]. REVIEW OF SYSTEMS: Temperature is [...] is having recurrent symptoms. Recommend physical therapy. Burton for pain relief, heat and massage. CONNER BOUDREAUX DO PARISH/AQS /[id number] documented in this encounter Plan of Treatment [...] hip documented in this encounter Care Teams Bus Repair Supervisor Relationship Specialty Start Date End Date Clinician, Not Found, [place] [address] PCP - General 06/23/20 documented as of this encounter
--- OUTSIDE RECORDS SUMMARY | 2024-04-28 14:40 | XMS_ITS | Encounter Summary ---
Author Organization [facility] Address [address], [place] [address] Care Team Providers Care Donation Specialist Name Role Phone Clinician, Not Found MD Primary Care Provider Un available Reason for Visit * Procedure/Equipment (Routine) - Incomplete Specialty Diagnoses / Procedures Referred By Contac t Referred To Contact Diagnoses Pain of left hip Procedures XR Pelvis W Lt Lateral Hip Sanjay Leach DO [address] [facility] [place] [place] [address] Referral ID Status Reason Start Date Expiration Date V isits Requested Visits Authorized [id number] Incomplete 02/12/2024 05/13/2025 1 1 Encounter Details Date Type Department Care Team (Late st Contact Info) Description 02/12/2024 7:10 PM CDT Ancillary Procedure [facility] [address] Rad[address] [address] [place] [phone] Sanjay Leach DO [address] [facility] [address] [place] [address] Pain of left hip Social History Tobacco [...] hip documented in this encounter Care Teams Donation Specialist Relationship Specialty Start Date End Date Clinician, Not Found, [place] [address] PCP - General 06/23/20 documented as of this encounter
--- OUTSIDE RECORDS SUMMARY | 2024-04-28 14:40 | XMS_ITS | Encounter Summary ---
Author Organization [facility] Address [address], [place] [address] Care Team Providers Care Bar Host/Hostess Name Role Phone Clinician, Not Found MD Primary Care Provider Un available Reason for Visit * Reason Comments Questions Encounter Details Date Type Department Care Team (Late st Contact Info) Description 12/30/2023 Telephone [facility] [address] [place], [place] [address] Zakia Carrillo, CREDIT ANALYST, RECREATIONAL RESORT MANAGER [address] [place] [address] Questions Social History Tobacco Use Types Packs/Day [...] [place] * Erendira Prince - 12/30/2023 3:02 PM [...] can we send you a message in [employer]? No [Debt And Budget Counselor/Marine Pipefitter: Relay to patient; We make every effort to get back to you sameday, however it may take 1-2 business days depending on the nature of the communication.] documented in this encounter Plan of Treatment Not on file documented as of this encounter Visit Diagnoses Not on filedocumented in this encounter Care Teams Bar Host/Hostess Relationship Specialty Start Date End Date Clinician, Not Found, [place] [address] PCP - General 06/23/20 documented as of this encounter
== END 2024-04-28 14:38 | disposition home or self-care (01) ==
LOC: WOUND 14:37
PROVIDERS: PCP Family Medicine; Visit Provider Surgery
DX: I87.332 Chronic venous hypertension (idiopathic) with ulcer and inflammation of left lower extremity (principal); L97.822 Non-pressure chronic ulcer of other part of left lower leg with fat layer exposed; I89.0 Lymphedema, not elsewhere classified
CPT/HCPCS: 11042

== ENCOUNTER 2024-05-19 13:01 | Outpatient (CLI) | payer MEDICARE, BC, SELFPAY ==
--- OUTSIDE RECORDS SUMMARY | 2024-05-19 13:03 | XMS_ITS | Clinical Summary ---
Author Organization [facility] Address [address] [address] Phone Care Team Providers Care Hairmasters Manager Name Role Phone Aba Boo MD Primary Care Provider Allergies No known active allergies Encounters Date Type Department Care Team Description 04/02/2024 3:26 PM CDT - 04/02/2024 4:45 PM CDT Emergency [facility] Emergency Department [address] [place] [address] Lee Frye, Pacemaker complications, initial encounter (Primary Dx) Discharge Disposition: Home and/or Self Care 04/02/2024 7:00 AM CDT Cardiac Device Remote [facility] [address] [place] [address] Ancillary, [facility] Pacer Remote Monitor Sinoatrial [...] age to complete this topic Care Teams Hairmasters Manager Relationship Specialty Start Date End Date Aba Boo MD [facility] [address] [place] [address] PCP - General Family Medicine 04/02/24
--- OUTSIDE RECORDS SUMMARY | 2024-05-19 13:03 | XMS_ITS | Encounter Summary ---
Author Organization [facility] Address [address] [address] Phone Care Team Providers Care Site Safety Manager Name Role Phone Aba Boo MD [...] on filedocumented in this encounter Care Teams Site Safety Manager Relationship Specialty Start Date End Date Aba Boo MD [facility] & [address] [address] PCP - General Family Medicine 04/02/24 documented as of this encounter
--- OUTSIDE RECORDS SUMMARY | 2024-05-19 13:03 | XMS_ITS | Encounter Summary ---
Author Organization [facility] Address [address] [address] Phone Care Team Providers Care Waterproofer Name Role Phone Aba Boo MD Primary Care Provider [phone] Reason for Visit * Reason Comments Cardiac Device Check Encounter Details Date Type Department Care Team (Latest Contact Info) Description 04/02/2024 7:00 AM CDT Cardiac Device Remote [facility] [address] [place] [address] Ancillary, [facility] Pacer Remote Monitor Sinoatrial node [...] the original note were not included. 04/02/24 9297 Remote Impression and Plan Place of Service [place];[employer];In person Remote Monitoring;E.R.;ICD Final Impression Normal Remote Monitor with Events RVP > 40% NO Events/Comments In person care link from [employer]. Pt has been 100% AT/AF since 03/16/24 with ventricular rates 80-120s bpm for majority of time. Presenting egm supporting AT/AF VS 80-120 bpm. No ventricular events logged. Minimally CHIEF CARDIOPULMONARY TECHNOLOGIST: 4.3%. Updated Dr. Frye via secure chat. Pt's device is beeping due to unsuccessful [employer] Alert transmission. Pt needs to follow up with [employer] technical support and device clinic they follow with. Follow Up Plan follow-up as scheduled Plan of Care Full report under Media/CV tab Anticoagulation (No updated med list) Battery 2.8 yrs Atrial Fib [place] % 100 RVP % 4.3 Heart Rate [...] call notification and can be viewed in [employer]. Presenting rhythm: Associated attestation - Sanjay Alvarez [...] situ documented in this encounter Care Teams Waterproofer Relationship Specialty Start Date End Date Aba Boo MD [facility] & [address] [address] PCP - General Family Medicine 04/02/24 documented as of this encounter
--- OUTSIDE RECORDS SUMMARY | 2024-05-19 13:03 | XMS_ITS | Encounter Summary ---
Author Organization [facility] Address [address] [address] Phone Care Team Providers Care Logger Driving Horses Name Role Phone Aba Boo MD Primary Care Provider [phone] Reason for Visit * Reason Comments Pacemaker Problem Encounter Details Date Type Department Care Team (Late st Contact Info) Description 04/02/2024 3:26 PM CDT - 04/02/2024 4:45 PM CDT Emergency [facility] Emergency Department [address] [place] [id number] Lee Frye, DO [address] [place] [address] [id number] Pacemaker complications, initial encounter (Primary Dx) Discharge [...] Code Departure Means Destination Home and/or Self [place] documented in this encounter ED Notes * [...] certainly considered. Pacemaker was interrogated. Per pacemaker retail customer service representative the pacemaker is working appropriately. The [...] Disposition ED Disposition Discharge Condition Stable Comment [facility] thanks you for allowing us to assist you with your healthcare needs. This document contains patient education materials and information regarding your injury/illness. *If you need copies of your x-rays for a f ollow up appointment please call [phone] to arrangefor hot die picker. If you had an IV in [...] Primary documented in this encounter Care Teams Logger Driving Horses Relationship Specialty Start Date End Date Aba Boo MD [facility] [address] [place] [address] PCP - General Family Medicine 04/02/24 documented as of this encounter
--- OUTSIDE RECORDS SUMMARY | 2024-05-19 13:04 | XMS_ITS | Clinical Summary ---
Author Organization [facility] Address [address] [place] [address] Care Team Providers Care Assistant Womens Volleyball Coach Name Role Phone Clinician, Not Found MD Primary Care Provider Un available Source Comments You are receiving this document as you are listed as the primary care provider,follow-up provider, or the patient has been referred to you for consultation.This is in compliance with the Medicare and[facility] EHR Incentive Program,which states Providers who transition their patient to another setting of careor provider of care or refers their patient to another provider of care shouldprovide summary care record for each transition of care or referral. [email or web address] Allergies No known active allergies Medications Medication [...] Status post total right knee replacement 020 Overview (06/15/2020): By Dr. Murrieta at [facility]. Ascending aorta dilation 06/15/2020 Overview (06/15/2020): -09/09/11: S/p Aortic Valve Sparing Root Repair with a 34 mm Valsalva Graft and Left Sided MAZE with Ligation of Left Atrial Appendage by Dr. Ashton. 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 08/04/2019 History of aortic root repair 07/08/2019 Hypothyroid 12/14/2018 Hypertension 12/03/2015 S/P Maze operation for atrial fibrillation 10/15 Social History Tobacco Use Types Packs/Day Years [...] this topic Medical Devices Implanted Type Area Linen Checker Device Identifier Shelf Expiration Date Model / Serial / Lot Mohan Bone Biomet R 1x40 - [id number] Implanted:Qty: 2 on 06/15/2020 by Sanjay Murrieta MD at [facility] DEVICE Right: [employer] 07/29/2024 [id number] / / [id number] Patella All Poly Ply 41mm - [id number] Implanted:Qty: 1 on 06/15/2020 by Sanjay Murrieta MD at [facility] DEVICE Right: [employer] 06/28/2026 [id number] / / [id number] Comp Str Hyb St 14x+30 - [id number] Implanted:Qty: 1 on 06/15/2020 by Sanjay Murrieta MD at [facility] DEVICE Right: [employer] 11/26/2029 [id number] / / [id number] Stem Tib 5deg Szh Rt - [id number] Implanted:Qty: 1 on 06/15/2020 by Sanjay Murrieta MD at [facility] DEVICE Right: [employer] 01/26/2029 [id number] / / [id number] Comp Fem Ps Ccr Ps Std Sz12 Rt - [id number] Implanted:Qty: 1 on 06/15/2020 by Sanjay Murrieta MD at [facility] DEVICE Right: [employer] 06/28/2029 [id number] / / [id number] Asf Ps Ve 10mm 1012 Gh Rt - [id number] Implanted:Qty: 1 on 06/15/2020 by Sanjay Murrieta MD at [facility] DEVICE Right: [employer] 04/28/2021 [id number] / / [id number] Advance Directives * Full Code (Latest Code Status on File) Date Activated Date Inactivated Comments 06/15/2020 2:08 PM 06/17/2020 2:45 PM Care Teams Assistant Womens Volleyball Coach Relationship Specialty Start Date End Date Clinician, Not Found, [place] [address] PCP - General 06/23/20
--- OUTSIDE RECORDS SUMMARY | 2024-05-19 13:04 | XMS_ITS | Clinical Summary ---
Author Organization [facility] Address [place], [place] [address] Care Team Providers Care Back Gray Cloth Washer Name Role Phone Aba Boo MD Primary Care Provider + Destin Johnston MD Unavailable [phone] Nurses, Advanced Heart Failure Unavailable + Allergies No known active allergies Medications Medication Sig Dispensed Refills Start Date End Date Status acetaminophen (TYLENOL EXTRA STRGTH) 500 mg tablet Take 2 tablets by mouth every 6 hours if needed. 0 08/02/20 20 Active traZODone (DESYREL) 100 mg tablet Take 200 mg by mouth at bedtime if needed for Sleep. 05/06/20 23 Active rOPINIRole (REQUIP) 4 mg tablet Take 12 mg by mouth once daily in the evening. Active levothyroxine (Synthroid) 112 mcg tablet Take 224 mcg by mouth once daily. Active gabapentin (NEURONTIN) 300 mg capsule Take 300-600 mg by mouth daily in evening if needed (restless legs). Active metOLazone (ZAROXOLYN) 5 mg tabletIndications: Chronic HFrEF (heart failure with reduced ejection fraction) (HC) Take by mouth as directed by advanced heart failure team clinicians. 15 Tablet 04/13/20 24 Active rivaroxaban (Xarelto) 20 mg tabletIndications: Atrial fibrillation, unspecified type (HC) Take 1 Tablet (20 mg) by mouth once daily with evening meal. 90 Tablet 3 04/13/20 24 Active rosuvastatin (CRESTOR) 10 mg tabletIndications: Coronary artery disease, unspecified vessel or lesion type, unspecified whether angina present, unspecified whether [place] or transplanted heart Take 1 Tablet (10 mg) by mouth at bedtime. 90 Tablet 3 04/13/20 24 Active empagliflozin (Jardiance) 10 mg tabletIndications: Chronic systolic heart failure (HC) Take 1 Tablet (10 mg) by mouth once daily. HOLD until after cardioversion on 04/1904/16/20 24 Active hydrocortisone 1 % creamIndications:A trial fibrillation, unspecified type (HC) Apply topically to affected area(s) 4 times daily if needed for Itching. 04/19/20 24 Active tirzepatide, weight loss, (ZEPBOUND) 7.5 mg/0.5 mL pen Inject 7.5 mg subcutaneous once weekly. Saturdays Active torsemide (DEMADEX) 20 mg tabletIndications: Primary cardiomyopathy (HC) Take 2 tablets (40mg) twice daily through 05/15/2024, then reduce to 1 and one-half tablets (30mg) twice daily 90 Tablet 2 05/11/20 24 Active amiodarone (CORDARONE) 200 mg tabletIndications: Atrial fibrillation, persistent (HC) Take 2 Tablets (400 mg) by mouth two times daily. 05/21/2024: Reduce to 1 tablet (200 mg) by mouth twice daily. 06/18: Reduce to 1 tablet (200 mg) by mouth once daily. 05/14/20 24 Active oxygen-air delivery systems (HOME OXYGEN)Indications :Sepsis due to Streptococcus species with acute organ dysfunction, unspecified organ dysfunction type, unspecified whether septic shock present (HC),HFrEF (heart failure with reduced ejection fraction) (HC) Oxygen for home use. Liters per minute: 1 L/min per nasal cannula. Frequency of use: With activity.;. Length of need: 99 Months. 1 Each 10/21/19 24 024 Discontinued(Ph armacist change per medication history (E-cancel not sent)) sotaloL (BETAPACE) 80 mg tabletIndications: Atrial fibrillation, unspecified type (HC) Take 2 Tablets (160 mg) by mouth every 12 hours. 120 Tablet 04/13/20 24 024 Discontinued(*M ed complete/Regime n complete/Level of care change) furosemide (LASIX) 20 mg tabletIndications: Chronic systolic heart failure (HC) Take 3 Tablets (60 mg) by mouth two times daily. 540 Tablet 1 04/14/20 24 024 Discontinued(*I P Discontinued) Zepbound 2.5 mg/0.5 mL penIndications:Obe sity, unspecified classification, unspecified obesity type, unspecified whether serious comorbidity present Inject 2.5 mg subcutaneous once weekly. HOLD dose on Tuesday 04/17 prior to cardioversion 04/16/20 24 024 Discontinued(Ph armacist change per medication history (E-cancel not sent)) amiodarone (CORDARONE) 200 mg tabletIndications: Atrial fibrillation, persistent (HC) Take 1 Tablet (200 mg) by mouth once daily. Take Amiodarone 400 mg (2 tabs) twice daily for 1 week; then 400 mg (2 tabs) for 1 month; then 200 mg (1 tab) once daily 90 Tablet 3 04/22/20 24 024 Discontinued amiodarone (CORDARONE) 200 mg tabletIndications: Atrial fibrillation, persistent (HC) Take 1 Tablet (200 mg) by mouth two times daily. 05/21/2024: Reduce to 1 tablet (200 mg) by mouth twice daily. 06/18: Reduce to 1 tablet (200 mg) by mouth once daily. 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 Ashton. Hypothyroidism 02/17/2024 Encounters Date Type Department Care Team Description 05/19/[address] [facility] [address] [address] Erendira Sotomayor NP 05/14/2024 9:37 AM CDT Anesthesia Event [facility] [address] [place] [address] Aba Valerio MD 05/14/2024 7:10 AM CDT - 05/14/2024 11:40 AM CDT Hospital Encounter [facility] [address] [place] [address] Seamus Cole MD Atrial fibrillation, persistent (HC) Discharge Disposition: Home Self Care 05/14/2024 Travel 05/13/2024 9:20 AM CDT Orders Only [facility] [address] [facility] [address] [place] [address] Lab 05/13/[address] [facility] [address] [address] Martha Warner RN 05/13/[address] [facility] [address] [address] Marquis Santana MD Results (LFT and TSH results on Amiodarone) 05/12/2024 Travel 05/11/2024 7:46 AM CDT Anesthesia Event [facility] [address] [place] [address] Alan Yao DO 05/11/2024 5:41 AM CDT - 05/11/2024 5:50 PM CDT Hospital Encounter [facility] [address] [address] Marquis Santana MD Kroll, Sharon Marie, CRNA Primary cardiomyopathy (HC) (Primary Dx); Acute on chronic HFrEF (heart failure with reduced ejection fraction) (HC) Discharge Disposition: Home Self Care 05/11/2024 Travel 05/04/[address] [facility] [address] [facility] [address] [place] [phone] Marquis Santana MD Medication Management 05/04/2024 Telephone [facility] [address] [place] [address] Guadalupe Rosado RN Appointment 05/03/[address] [facility] [address] [phone] Marquis Santana MD Concerns (AFIB) 04/30/2024 12:03 PM CDT Anesthesia Event [facility] [address] [place] [address] Aba Valerio MD Wilson, Timothy Eric, INSURANCE CLAIMS ASSISTANT 04/30/2024 10:08 AM CDT - 04/30/2024 3:03 PM CDT Hospital Encounter [facility] [address] [place] [address] Marquis Santana MD Discharge Disposition: Home Self Care 04/30/2024 Travel 04/27/2024 10:15 AM CDT Ancillary Procedure [address] [phone] 04/27/2024 9:45 AM CDT Office Visit [address] [address] Riaz Peterson MD Recheck (EP, non-displaced left femoral neck fracture DOI:02/11/2024, x-rays) 04/27/2024 Travel 04/25/[address] [address] Dennis Barahona, KELSEA 04/22/2024 1:20 PM CDT Orders Only [address] [place] [address] Lab, Ale Lab 04/22/2024 Travel 04/20/[address] [facility] [address] [address] Marquis Santana MD Atrial Fibrillation 04/19/2024 9:05 AM CDT Anesthesia Event [facility] [address] [place] [address] Marco Aguiar MD Wilson, Timothy Eric, CRNA 04/19/2024 7:18 AM CDT - 04/19/2024 10:53 AM CDT Hospital Encounter [facility] [address] [place] [address] David Ugarte NP Gebre-Amlak, Kassatihun Debebe, MD Deviley, Sarah Jean, CRNA Atrial fibrillation, unspecified type (HC) (Primary Dx) Discharge Disposition: Home Self Care 04/19/2024 Travel 04/16/2024 7:06 AM CDT - 04/16/2024 10:07 AM CDT Hospital Encounter [facility] [address] [address] Marquis Santana MD Wilson, Timothy Eric, CRNA Obesity, unspecified classification, unspecified obesity type, unspecified whether serious comorbidity present (Primary Dx); Chronic systolic heart failure (HC) Discharge Disposition: Home Self Care 04/16/2024 7:05 AM CDT Anesthesia Event [facility] [address] [address] Placido Chowdhury CRNA 04/16/2024 Travel 04/15/[address] [facility] [address] [address] Lianna Dominguez, KELSEA Device Check (AF alert) 04/14/[address] [facility] [address] [address] Destin Johnston MD 04/13/2024 4:20 PM CDT Office Visit [facility] [address] [facility] [address] Rosalie Senior NP Heart Problem (Paroxysmal atrial fibrillation); Primary MD (Aba Boo MD/) 04/13/2024 8:00 AM CDT Office Visit [facility] [address] [facility] [address] [place] [address] Destin Johnston MD CV Heart Failure Est (STAT - IN PERSON F/U VISIT. [facility] /Acute on chronic HFrEF (heart failure with reduced ejection fraction) //pt states he is in a-fib. He got converted on and went to primary yesterday to confirm he is in A-fib still.//) 04/13/2024 Travel 04/10/[address] [facility] [address] [address] Marquis Banda RN Device Check (Patient thinks he back in AF) 04/08/2024 2:40 PM CDT Anesthesia Event [facility] [address] [place] [address] Zion Leigh MD 04/08/2024 12:19 PM CDT - 04/08/2024 3:58 PM CDT Hospital Encounter [facility] [address] [place] [address] Marquis Santana MD Wilson, Timothy Eric, CRNA Kushins, Stephen Isaac, MD Persistent atrial fibrillation (HC) (Primary Dx) Discharge Disposition: Home Self Care 04/08/2024 Travel 04/07/[address] [facility] [address] [address] Marquis Santana MD Schedule Cardioversion 04/05/2024 10:30 AM CDT Office Visit [facility] [address] [place] [address] Kathleen Boyer PA Follow Up (follow up) 04/05/2024 Travel 04/02/[address] [facility] [address] [phone] Susana Joyner I, RN Device Check 04/02/[address] [facility] [address] [facility] [address] [place] [phone] Destin Johnston MD Concerns (Defib beeping ) 03/30/2024 9:55 AM CDT Ancillary Procedure [address] [place] [address] 03/30/2024 9:50 AM CDT Ancillary Procedure [address] [place] [address] 03/30/2024 9:30 AM CDT Office Visit [address] [facility] [address] [place] [address] Riaz Peterson MD Hip Pain/problem (left hip pain); Chest Injury (left side rib pain) 03/30/2024 Travel 03/29/[address] [facility] [address] [place], [place] [address]e S [facility] [address] [place] [address] Riaz Peterson MD Questions 03/22/[address] [facility] [address] [facility] [address] [place] [phone] Destin Johnston MD Follow Up (BP update) 03/19/[address] [facility] [address] [facility] [address] [place] [phone] Destin Johnston MD <No scans attached> 03/15/2024 10:28 PM CDT - 03/19/2024 11:22 AM CDT Hospital Encounter [facility] [address] [place] [address] Alan De Santiago MD Kiberenge, MD Kaleb Monroy, MD Keyla Mcgarry, DO Gerardo Lundberg, Lee Kennedy MD [facility] [place], [facility] Left displaced femoral neck fracture (HC) (Primary Dx); Closed fracture of multiple ribs of left side, sequela; Closed fracture of neck of left femur with routine healing, subsequent encounter; Acute on chronic HFrEF (heart failure with reduced ejection fraction) (HC) Discharge Disposition: Home Self Care 03/15/2024 6:00 PM CDT Hospital Encounter [facility] [address] [place] [address] [facility] [place] 03/15/2024 1:49 PM CDT Anesthesia Event [facility] [address] [place] [address] Fatemeh Hunt CRNA 03/15/2024 12:13 PM CDT - 03/15/2024 9:[address] [facility] [address] [place] [address] Janina Valero MD Ball, Julieanne Patricia, MD Closed fracture of multiple ribs of left side, initial encounter (Primary Dx); Hypoxia; Hypotension, unspecified hypotension type; Laceration of multiple sites of left lower extremity, initial encounter Discharge Disposition: Crit Acc Hosp w Planned Readmission 03/15/[address] [facility] [address] [facility] [address] [place] [address] Erendira Sotomayor NP Letter (Request letter faxed on 03-12-24 be re-faxed as didn't receive the whole document.) 03/15/2024 Travel 03/12/[address] [facility] [address] [facility] [address] [place] [address] Erendira Sotomayor NP Questions 03/11/2024 8:35 AM CDT Ancillary Procedure [address] [place] [address] 03/11/2024 8:30 AM CDT Office Visit [address] [place] [address] Ellie Alexander PA Hip Pain/problem (Non-operative follow-up visit: non-displaced left femoral neck fracture) 03/11/2024 Travel 03/10/2024 Telephone [facility] [address] [facility] [address] [place] [phone] Erendira Sotomayor, LIDYA Medication Management 03/09/[address] [facility] [address] [place] [address] [address] [place] [address] Riaz Peterson MD 03/02/2024 1:00 PM CDT Office Visit [facility] [address] [facility] [address] [place] [address] Erendira Sotomayor NP CV Heart Failure Est (EST PT. STAT [facility] F/U, LABS PRIOR AT [facility], H/O CHRONIC HFrEF) 03/02/2024 Travel 03/01/2024 Home Care Visit [facility] [address] [place] [address] Valentina Green, PT CARE COORDINATION 02/26/2024 11:40 AM CDT Ancillary Procedure [facility] [address] [place] [phone] 02/26/2024 11:00 AM CDT Office Visit [address] [phone] Riaz Peterson MD Hip Pain/problem (left hip pain) 02/26/2024 4:30 AM CDT Home Care Visit [facility] [address] [place] [phone] Katharine Nieves, OT OT - MISSED VISIT 02/26/2024 Home Care Visit [facility] [address] [place] [address] Valentina Green, PT EPISODE DISCHARGE 02/26/2024 Travel 02/23/2024 9:30 AM CDT Home Care Visit [facility] [address] [place] [address] Brenda Moses, RN SN - OASIS START OF CARE 02/23/2024 Telephone [facility] [address] [place] [phone] Brenda Moses, toy consultant 02/23/2024 Plan of Care Documentation [facility] [address] [place] [phone] 02/17/2024 8:19 PM CDT - 02/21/2024 11:03 AM CDT Hospital Encounter [facility] [address] [place] [address] Alba Ha, Rah Mcneal, DO Palafox, Lucio Lyon, DO Palacios, MD Shila Sampson, Danay Dickey MD [facility] [place], [facility]ists Of Hematoma of left lower extremity, initial encounter (Primary Dx); Weakness; Weight gain; Cardiovascular symptoms; Closed fracture of neck of left femur, initial encounter (HC); Chronic HFrEF (heart failure with reduced ejection fraction) (HC); Cellulitis of left lower extremity Discharge Disposition: Home Health 02/17/2024 Travel from Last 3 Months Immunizations Name Administration [...] drink = 0.6 oz pur e alcohol) seldom PHQ-2 Answer Date Recorded PHQ-2 Score 0 [...] Sign Reading Time Taken Comments Blood Pressure 110/58 05/14/2024 10:46 AM CDT Pulse 79 05/14/2024 10:46 AM CDT Temperature 36.6 ??C (97.8 ??F) 05/14/2024 8:00 AM CD T Respiratory Rate 20 05/14/2024 10:4 6 AM CDT Oxygen Saturation 94% 05/14/2024 10: 46 AM CDT Inhaled Oxygen Concentration - - Weight 135.2 kg (298 lb 1.6 oz) 05/14/2024 7:52 AM CDT Height 200.7 cm (6' 7) 05/14/2024 7:52 AM CDT Body Mass Index 33.58 05/14/2024 7:52 AM CDT Plan of Treatment Upcoming Encounters Date Type Department Care Team (Late st Contact Info) Description 05/24/2024 8:30 AM CDT Office Visit [address] [place] [address] Iva Johnston, [facility] [address] [facility] 400 [place] [address] 06/21/2024 7:30 AM CDT Orders Only [facility] [address] [place] [address] Ale Welch 06/24/2024 8:00 AM CDT Office Visit [address] [place] [address] Destin Johnston MD [address] [facility] [address] [place] [address] 06/25/2024 Cardiac Device Check [facility] [phone] 06/29/2024 8:30 AM CDT Office Visit [facility] [address] [place] [phone] Riaz Peterson MD [address] [place] [address] 06/29/2024 2:20 PM CDT Office Visit [facility] [address] [place] [address] Rosalie Senior NP [address] [place] [address] Health Maintenance Due Date Last Done Comments Tdap 1961 Hepatitis C screening for ag e 18-79 1968 Tetanus booster 1970 Zoster (shingles) series for age 50+ (2 of 3) 08/19/2013 06/24/2013 Colonoscopy through age 75 08/07/201608/07 (Completed outside of [facility]) Pneumococcal series for age 65+ (2 of 2 - PCV) 11/27/2016 11/28/2015 Depression screening for age 12+ 12/08/2019 12/08/19 19, 11/28/2015 Lipids for age 45-75 01/07/2023 01/07/2018, 03/03/2017, 11/28/2015, Additional history exists COVID-19 vaccine series (2 - season) 2023 06/27/2021 Influenza for age 65+ 05/30/2024 06/24/2013 Medicare Wellness for age 65+ 11/10/2024 11/10/2023, 11/28/2015 BMI (ht and wt on same day) for age 18+ 04/13/2025 04/13/2024, 04/13/2024, 03/02/2024, Additional history exists AAA screening age 65-74 Completed 03/15/2024 Medical Devices Implanted Type Area Drive Man Device Identifier Shelf Expiration Date Model / Serial / Lot Graft Alexa 34mm - [id number] Implanted:Qty: 1 on 09/09/2011 at [facility] [employer] [id number] / / Procedures Procedure Name Priority Date/Time Associated Diagnosis Comments EP CARDIOVERSION Routine 05/14/2024 9:46 AM CDT EKG 12 LEAD Post Op 05/14/2024 9:44 AM CDT POTASSIUM,ISTAT Timed 05/14/2024 8:18 AM CDT EKG 12 LEAD Preop 05/14/2024 7:39 AM CDT SCAN-CARDIAC STRIP 05/14/2024 12 :00 AM CDT MAGNESIUM CARLOS 05/13/2024 8:42 AM CDT AST (SGOT) CARLOS 05/13/2024 8:42 AM CDT ALT (SGPT) CARLOS 05/13/2024 8:42 AM CDT PRO-BNP Routine 05/13/2024 8:42 AM CDT Chronic HFrEF (heart failure with reduced ejection fraction) (HC) BASIC METABOLIC PANEL Routine 05/13/2024 8:42 AM CDT Chronic HFrEF (heart failure with reduced ejection fraction) (HC) EKG 12 LEAD CARLOS 05/11/2024 5:00 PM CDT SCAN-CARDIAC STRIP 05/11/2024 1: 28 PM CDT [facility] ACTIVATED CLOTTING TM CV Timed 05/11/2024 11:38 AM CDT [facility] ACTIVATED CLOTTING TM CV Timed 05/11/2024 10:59 AM CDT [facility] ACTIVATED CLOTTING TM CV Timed 05/11/2024 10:16 AM CDT [facility] ACTIVATED CLOTTING TM CV Timed 05/11/2024 9:44 AM CDT [facility] ACTIVATED CLOTTING TM CV Timed 05/11/2024 9:16 AM CDT [facility] ACTIVATED CLOTTING TM CV Timed 05/11/2024 8:39 AM CDT EP STUDY /ABLATION Routine 05/11/2024 8: 13 AM CDT ENDOTRACHEAL TUBE Routine 05/11/2024 8:0 9 AM CDT ENDOTRACHEAL TUBE Routine 05/11/2024 8:0 9 AM CDT EKG 12 LEAD Preop 05/11/2024 6:28 AM CDT PLATELET ESTIMATE STAT 05/11/2024 6:1 3 AM CDT CBC W PLT NO DIFF Preop 05/11/2024 6:1 3 AM CDT BASIC METABOLIC PANEL Preop 05/11/2024 6:13 AM CDT EXTRA TUBE GOLD/SST Today 05/11/2024 6 :10 AM CDT SCAN-CARDIAC STRIP 05/11/2024 12 :00 AM CDT ICD ANALYSIS DUAL WITHOUT REPROGRAM Routine 04/30/2024 1:46 PM CDT EP CARDIOVERSION Routine 04/30/2024 12:0 6 PM CDT EKG 12 LEAD Post Op 04/30/2024 11:59 AM CDT POTASSIUM,ISTAT Timed 04/30/2024 11:03 AM CDT EKG 12 LEAD Preop 04/30/2024 10:33 AM CDT SCAN-CARDIAC STRIP 04/30/2024 12 :00 AM CDT XR HIP 2 OR 3 VIEWS W PELVIS LEFT Routine 04/27/2024 10:24 AM CDT Left displaced femoral neck fracture (HC) TSH WITH REFLEX Routine 04/22/2024 1:29 PM [...] PELVIS W STAT 03/15/2024 2:02 PM CDT [facility] AN IV START Routine 03/15/2024 1:33 PM CDT [facility] AN IV START Routine 03/15/2024 1:33 PM CDT [facility] AN IV START Routine 03/15/2024 1:33 PM CDT [facility] AN IV START Routine 03/15/2024 1:33 [...] AUTO DIFFERENTIAL STAT 02/17/2024 8:40 PM CDT LIPID PANEL Routine 01/07/2018 4:35 PM CDT Hypertension from Last 3 Months or Most Recently Relevant to Health Maintenance Results * EP CARDIOVERSION (05/14/2024 9:46 AM CDT) Anatomical Region Laterality Modality X-Ray Angiograph y Narrative 05/14/2024 9:46 AM CDT Seamus Cole MD ? 05/17/2024 ??7:[address] [facility] Cardiac Electrophysiology Procedure Note DOS: 05/14/2024 Brief History: ??Mr. Centeno is a pleasant 73 year old with history of atrial arrhythmias who now presents to [facility] NPO since midnight for direct current cardioversion. ??Rivaroxaban 20 mg daily with evening meal with no missed doses in the past 21 days. Procedure Description: ??Time out was called. ??Brief general anesthesia by anesthesia service. ??Cardioversion patches were placed in an anterior/posterior position. ??One 250 joules synchronized shock delivered with baptism of an AV paced rhythm. ?? Complications: ??No acute complications. ?? Plan: ??Mr. Centeno is now recovering from sedation and would anticipate discharge home later today. Dr. Cole was readily available to provide assistance and direction throughout the time services were performed Esther Macdonald NP ?? [facility] Cardiac Electrophysiology Services Seamus Cole MD Cardiac Arrhythmia Section [facility] Saemus Cole MD CV IMAGING * EKG (05/14/2024 9:44 AM CDT) Only the most recent of12 resultswithin the time period is included. Pathologist [facility] Interpretation Normal sinus rhythm with sinus arrhythmia Possible Inferior infarct (cited on or before 10-Sep-2011) Anterior infarct (cited on or before 10-Sep-2011) Abnormal ECG When compared with ECG of 14-May-2024 07:39, Sinus rhythm has replaced Atrial fibrillation BEYOND NOW Ventricular Rate 68 BPM BEYOND NOW Atrial Rate 68 BPM BEYOND NOW P-R Interval 176 ms BEYOND NOW QRS Duration 118 ms BEYOND NOW QT 452 ms BEYOND NOW QTc 480 ms BEYOND NOW P [place] 75 degrees BEYOND NOW R [place] -24 degrees BEYOND NOW T [place] 60 degrees BEYOND NOW 05/14/2024 9:44 AM CDT 05/14/2024 2:24 PM CDT Narrative BEYOND NOW - 05/14/2024 2:24 PM CDT Test Indication: POST Jacqueline Morelos NP EKG ORD BEYOND NOW [place], [place] * POTASSIUM,ISTAT (05/14/2024 8:18 AM CDT) Only the most recent of5 resultswithin the time period is included. Pathologist [facility] POTASSIUM, POCT 3.7 3.5 - 5.0 mmol/L 05/14/2024 6:58 PM CDT [facility] Blood BLOOD SPECIMEN / Unknown 05/14/2024 8:18 AM CDT 05/14/2024 6:58 PM CDT Seamus Cole MD CHEMISTRY Performing Organization Address [facility] Co de Phone Number [facility] [address] [place] [address], * SCAN-CARDIAC STRIP (05/14/2024 12:00 AM CDT) Narrative 05/14/2024 12:00 AM CDT Ordered by an unspecified provider. Other Clinical Staff OTHER * ALT (SGPT) (05/13/2024 8:42 AM CDT) Only the most recent of2 resultswithin the time period is included. ALT (SGPT) 43 10 - 50 IU/L 05/14/2024 9:15 AM CDT [facility] Blood BLOOD SPECIMEN / Unknown Venipuncture / Unknown 05/13/2024 8:42 AM CDT 05/13/2024 8:42 AM CDT Esther Macdonald NP CHEMISTRY Performing Organization Address [facility] Phone Number [facility] [address] [place] [address], * (ABNORMAL) AST (SGOT) (05/13/2024 8:42 AM CDT) Only the most recent of2 resultswithin the time period is included. AST (SGOT) 74(H) 10 - 50 IU/L 05/14/2024 9:14 AM CDT [facility] Blood BLOOD SPECIMEN / Unknown Venipuncture / Unknown 05/13/2024 8:42 AM CDT 05/13/2024 8:42 AM CDT Esther Macdonald NP CHEMISTRY Performing Organization Address [facility] Co de Phone Number [facility] [address] [place] [address], * (ABNORMAL) PRO-BNP (05/13/2024 8:42 AM CDT) Only the most recent of4 resultswithin the time period is included. [facility] Signature PRO-BNP 1,679(H) <125 pg/mL 05/13/2024 6:33 PM CDT [facility] Blood BLOOD SPECIMEN / Unknown Venipuncture / Unknown 05/13/2024 8:42 AM CDT 05/13/2024 8:42 AM CDT Narrative [facility] - 05/13/2024 6:33 PM CDT The following cut-points have been [...] 72% for acute congestive heart failure. ? Willard Cole MD [facility] [address] [place] [address], [place] * MAGNESIUM (05/13/2024 8:42 AM CDT) Only the most recent of5 resultswithin the time period is included. MAGNESIUM 1.9 1.6 - 2.4 mg/dL 05/14/2024 9:14 AM CDT [facility] Blood BLOOD SPECIMEN / Unknown Venipuncture / Unknown 05/13/2024 8:42 AM CDT 05/13/2024 8:42 AM CDT Esther Macdonald NP CHEMISTRY [facility] [address] [place] [address], * (ABNORMAL) BASIC METABOLIC PANEL (05/13/2024 8:42 AM CDT) Only the most recent of13 resultswithin the time period is included. Pathologist [facility] SODIUM 141 136 - 145 mmol/L 05/13/2024 6:36 PM CDT [facility] POTASSIUM 4.5 3.5 - 5.1 mmol/L 05/13/2024 6:36 PM T [facility] CHLORIDE 98 98 - 107 mmol/L 05/13/2024 6:36 PM T [facility] CO2,TOTAL 32(H) 22 - 29 mmol/L 05/13/2024 6:36 PM T [facility] ANION GAP 11 5 - 18 05/13/2024 6:36 PM T [facility] GLUCOSE 92 70 - 99 mg/dL 05/13/2024 6:36 PM T [facility] CALCIUM 9.1 8.8 - 10.2 mg/dL 05/13/2024 6:36 PM T [facility] BUN 35(H) 8 - 23 mg/dL 05/13/2024 6:36 PM T [facility] CREATININE 1.29(H) 0.70 - 1.20 mg/dL 05/13/2024 6:36 PM T [facility] BUN/CREAT RATIO 27(H) 10 - 20 6:36 PM CDT [facility] eGFR 59(L) >90 mL/min/1.7 3m2 05/13/2024 6:36 PM CDT [facility] Comment:As of 2021, eG FR is calculated by the CKD-EPI creatinine equation without race adjustment. ??eGFR can be influenced by muscle mass, exercise, and diet. ??The reported eGFR is an estimation only and is only applicable if the renal function is stable. Blood BLOOD SPECIMEN / Unknown Venipuncture / Unknown 05/13/2024 8:42 AM CDT 05/13/2024 8:42 AM CDT Willard Cole MD CHEMISTRY Performing Organization Address [facility]/ZIP Co de Phone Number [facility] [address] [address], [place] * SCAN-CARDIAC STRIP (05/11/2024 1:28 PM CDT) Scanner OTHER * (ABNORMAL) ACTIVATED CLOTTING TIME CVE103 ACT (05/11/2024 11:38 AM CDT) Only the most recent of6 resultswithin the time period is included. ACTIVATED CLOTTING TIME, POCT 174(H) 74 - 125 sec 05/11/2024 11:52 AM CDT [facility] Blood BLOOD SPECIMEN / Unknown 05/11/2024 11:38 AM CDT 05/11/2024 11:52 AM CDT Marquis Santana MD HEMATOLOGY Performing Organization Address City/[facility]/ZIP Co de Phone Number [facility] [address] [place] [phone], [place] * EP STUDY /ABLATION (05/11/2024 8:13 AM CDT) Anatomical Region Laterality Modality X-Ray Angiograph y, X-Ray Angiography 05/11/2024 8:13 AM CDT Narrative Transcriptions Marquis Santana MD - 05/11/2024 5:[address] [facility] Electrophysiology Procedure Report Name: RAIN CENTENO Event Date: 05/11/2024 Ghada ID #: [id number] Date: 1950 Gender: Male Age: 73 [facility] #: [id number] Procedure Performed By: MARQUIS SANTANA [facility] Referring Physician: Summary / Conclusions 1. Complex persistent atrial fibrillation ablation performed a. Multiple focal A-fib drivers mapped and ablated b. Pulmonary vein antral isolation present at baseline 2. Additional tachycardia mechanism ablation a. Multiple focal left and right atrial tachycardias mapped andablated 3. Posterior LA ablation performed 4. Posterior intra caval RA ablation performed 5. Lateral mitral isthmus line intact from prior ablation Recommendations / Plan Bedrest for 3 hours Pre-Operative Diagnosis ? Atrial Fibrillation, Persistent Post-Operative Diagnosis ? Atrial Fibrillation, Persistent ? Atrial Tachycardia, Multiple foci Indications ? Same as Pre-operative diagnosis Consent & [place] Protocol [place] protocol was followed. TIME OUT conducted just prior tostarting procedure confirmed patient identity, site/side, procedure,patient position, and availability of correct equipment and implants (ifapplicable). The risks, benefits, and alternatives of the procedure were discussed withthe patient and written informed consent was obtained. Procedure Description A. Anesthesia Administration: The anesthesiologist managed anesthesia during the procedure, prioritizingpatient comfort and safety. Anesthesia administration followed a tailoredplan considering medical history, current medications, andcontraindications. B. The catheter insertion sites were prepped and draped in the usualsterile fashion. A mixture of 1% lidocaine and bupivacaine was used toanesthetize the cutaneous and subcutaneous tissue overlying the right andleft femoral veins. Ultrasound was used to identify the femoral vein andartery for access. Under ultrasound guidance, and using a micropuncturetechnique, two sheaths were introduced (one 8 Namibian and one 7 Namibian)into the right femoral vein, one 9 Namibian sheath was introduced into theleft femoral vein. C. Real-Time Display and Recording of 12-Lead Surface Electrocardiogramand Intracardiac Electrograms: Throughout the electrophysiology study, the patient's surface andintracardiac electrograms were continuously monitored in real time on anelectrophysiology monitoring system. E. Comprehensive Electrophysiology Study with Pacing, Recording, and 3DMapping: A thorough electrophysiology study was conducted, encompassing a widerange of assessments to analyze the patient's cardiac electrical activityand identify the underlying etiology of the arrhythmia. This approachinvolved: atrial pacing and recording, HIS Bundle electrogram recording, and ventricular pacing and recording. F. Intracardiac Electrogram Analysis and 3D Mapping: The etiology of the arrhythmia was determined through analysis of theintracardiac electrograms, in conjunction with advanced 3D mappingtechniques. The Carto mapping system was employed to create a detailed,three-dimensional representation of the patient's cardiac anatomy andelectrical activation patterns. G. Catheter-Based Ablation Decision: Based on the comprehensive electrophysiology study and the 3D mappingresults, the decision was made to proceed with a catheter-based ablationprocedure aimed to eliminate the arrhythmogenic substrate. H. Transseptal Puncture and Left Atrial Sheath Placement: A transseptal puncture was performed to facilitate access to the leftatrium for the electrophysiology study and ablation procedure. Utilizing aHeartSpan needle, the puncture was executed under the simultaneousguidance of both fluoroscopy and intracardiac echocardiography (ICE). Following the successful transseptal puncture, a preface sheath wascarefully advanced through the created opening in the interatrial septumand into the left atrium. The sheath was maneuvered while continuousmonitoring of its position and orientation was maintained using the ICEimaging. The left atrium was evaluated including the pulmonary veins, atrial size,and left atrial appendage. There was no visible intracardiac thrombus. I) Left atrial pressure transduction was performed immediately posttransseptal access. The mean left atrial pressure was 21 mmHg. J) Using a Pentaray catheter, the left atrial anatomy was mapped onCarto. The atrial volume as measured on Carto was 227cc K) At the end of the procedure, all catheters were removed. IV protaminewas administered to reduce the ACT. The patient was transported to [facility] area in stable condition for further monitoring. Procedure Details: Atrial fibrillation was present at baseline. High density LA and RAmapping demonstrated focal AF drivers, rather than typical high frequencysites. -Posterior LA, inferior LA These were ablated in a cluster format, extensively, with care near theleftward esophagus (temp monitoring, and Qmode plus lesions) CL slowed, and MAT was noted This was mapped, both LA and RA. -Focal sites posterior LA, inferior LA, lateral ridge, mid to posteriorseptum, reentry posterior RA - ablated with linear posterior line, andCS Following this, the CL was consistently > 220ms, but appeared to bemultifocal still. Additional linear posterior ablation, and extensiveinferior ablated were performed. Following this, the shortest CL waswithin the CS. The CS was ablated as well. Cardioversion was then performed successfully. Following this, atrial pacing to 230ms failed to induce AF, MAT, or AT. Electrophysiology Study Data Basic Intervals Study State Underlying Rhythm Cycle Length TN PA AH HV QRS [place] QRSMorphology Baseline Atrial Fibrillation [phone] Post Ablation A Paced 1000 223 Ablation Data Atrial Fibrillation Energy Source Ablation Catheter Used Rhythm During Ablation # of AttemptsMax Walker Max Temp. Result RF QDOT NSR 106 90 28 Success Esophageal Baseline Temp: 35.8o C Esophageal Peak Temp: 36.1o C Max Temp Increase During Ablation: 0.1o C Left atrial lesion sets were placed. The right inferior pulmonary vein was isolated. The right superior pulmonary vein was isolated. Other: Posterior wall Complex fractionated potentials were ablated in the left atrium. Linear lesion sets were placed in the left atrium. Right atrial lesion sets were placed. Other: posterior septal Electrograms were ablated within the coronary sinus. Comments: Total Ablation Time: 847 sec 28 RA ,4 CS Catheter Use Catheter Type Catheter Description Insertion Site Intracardiac Site SheathSize Sheath Type Sheath Description Ablation QDOT Right Femoral Vein Map/Abl 8 Fr Guide Preface Diagnostic/Map OCTARAY CURVE D 2-2-2-2-2 Right Femoral Vein Map/Abl 8 fRGuide PREFACE Diagnostic/Map DecaNav F-Curve Decapolar 2-8-2 spacing Right Femoral VeinCS 7 Fr Standard Sidearm Diagnostic SoundStar 3D Diagnostic Ultrasound Catheter Left Femoral VeinRA 9 fR Standard Sidearm Diagnostic EsophaStar Esophageal Mapping Catheter, 125 cm EsophagusEsophagus Diagnostic Level 1 Esophageal/Rectal Temperature Probe Esophagus Esophagus Complications ? No complications Procedure(s) Performed ? A Fib/PV Isolation Ablation ? Intracardiac Echocardiography ? Site-Rite Ultrasound used for vascular access ? 3D Mapping ? Ablation of Separate Mechanism of Tachychardia ? Ablation of Separate Mechanism of Tachychardia Auxiliary Device Intracardiac Echo Used: Yes Mapping System 1: Carto Procedure Detail Estimated Blood Loss: < 50 ml Specimen Collected: None Level of Sedation Achieved: See Anesthesia Note Total Flouro Time: 4.5 LOG MARKER Total Flouro Dose: 7 mGy Transseptal Mean LA Pressure: 20 mmHg Staff Name Role Marquis Santana Art Gilder Mary Juarez RN Nurse Will Dumont CVT Monitor Elayne Cano CVT Scrub Mo Clancy EPT Block Setter [place]um Medications Ordered and Administered Start Time Stop Time Medication Dose Units Route Ordered By Given By 08:15 0.25% Bupivicaine 10 mL Subcut MD Marquis Melton MD 08:16 1% Lidocaine Hydrochloride 10 mL Subcut MD Marquis Melton MD 08:19 0.25% Bupivicaine 5 mL Subcut MD Marquis Melton MD 08:19 1% Lidocaine Hydrochloride 5 mL Subcut MD Marquis Melton MD 08:25 Heparin 27908 Units IV MD Mary Melton RN 08:37 Heparin 2000 Units IV MD Mary Melton RN 09:23 Heparin 6000 Units IV MD Mary Melton RN 09:51 Heparin 3000 Units IV MD Mary Melton RN 10:25 Heparin 1000 Units IV MD Mary Melton RN 10:32 Protamine 50 Mg IV MD Mary Melton, KELSEA The anesthesia service monitored the patient?s conscious sedation duringthe procedure. The medications listed above were verbally ordered by me and read back tome as documented above. Refer to the hemodynamic procedure log report for additional casedetails. electronically signed on 05/11/2024 5:20:28 PM with status of Final Marquis Santana MD Art Gilder [facility] [address] [place] [address] (p) [phone](f) Marquis Santana MD CV IMAGING * HCHG INSTRUMENT DISP PR10, HCHG STYLET PR1 (05/11/2024 8:09 AM CDT) Narrative Estrella Huffman CRNA - 05/11/2024 8:09 AM CDT Estrella Huffman CRNA ? 05/11/2024 ??8:10 AM Procedure: ETT Patient location during procedure: OR ETT Properties Mask Ventilation: easy Final Technique: video laryngoscopy and direct laryngoscopy Location: oral Cuffed: yes Tube Size: 7.5 mm Stylet: yes Laryngoscope Blade: Glidescope Blade Size: 4 Cormack-Lehane Grade View: 1 Insertion Attempts: 1 Placement Verification: auscultation, end tidal CO2 and symmetrical chest wall movement Assessment: pharynx clear, atraumatic and dentition unchanged Secured at: 24 Measured From: teeth Difficulty: 0 (not difficult) Estrella Huffman CRNA ANESTHESIA PX NOTE ORDERABLES * (ABNORMAL) PLATELET ESTIMATE (05/11/2024 6:13 AM CDT) PLATELET ESTIMATE Platelets Clumped Unable to Determine(A) Adequate, No estimate 05/11/2024 7:24 AM CDT [facility] Blood BLOOD SPECIMEN / Unknown Venipuncture / Unknown 05/11/2024 6:13 AM CDT 05/11/2024 6:22 AM CDT Marquis Santana MD [facility]Y [facility] [address] [place] [id number], * (ABNORMAL) CBC with Platelet no Diff (05/11/2024 6:13 AM CDT) Only the most recent of6 resultswithin the time period is included. WHITE BLOOD COUNT 8.5 4.5 - 11.0 thou/cu mm 05/11/2024 7:24 AM CDT [facility] RED BLOOD COUNT 4.01(L) 4.30 - 5.90 mil/cu mm 05/11/2024 7:24 AM CDT [facility] HEMOGLOBIN 11.5(L) 13.5 - 17.5 g/dL 05/11/2024 7:24 AM CDT [facility] HEMATOCRIT 37.5 37.0 - 53.0 % 05/11/2024 7:24 AM CDT [facility] MCV 94 80 - 100 fL 05/11/2024 7:24 AM CDT [facility] MCH 28.7 26.0 - 34.0 pg 05/11/2024 7:24 AM CDT [facility] MCHC 30.7(L) 32.0 - 36.0 g/dL 05/11/2024 7:24 AM CDT [facility] RDW 15.6(H) 11.5 - 15.5 % 05/11/2024 7:24 AM CDT [facility] PLATELET COUNT 05/11/2024 7:24 AM CDT [facility] Comment: Platelet clumped, unable to determine This is a corrected result. Previously reported as 108 thou/cu mm with reference range 140-440 thou/cu mm on 05/11/2024 at 0723 CDT MPV 05/11/2024 7:24 AM CDT [facility] Comment: Unable to determine This is a corrected result. Previously reported as 11.6 fL with reference range 6.5-11.0 fL on 05/11/2024 at 0723 CDT NRBC 0.0 % 05/11/2024 7:24 AM CDT [facility] ABS NRBC 0.0 thou /cu mm 05/11/2024 7:24 AM CDT [facility] Blood BLOOD SPECIMEN / Unknown Venipuncture / Unknown 05/11/2024 6:13 AM CDT 05/11/2024 6:22 AM CDT Marquis Santana MD HEMATOLOGY [facility] [address] [place] [address], * EXTRA TUBE GOLD/SST (05/11/2024 6:10 AM CDT) Blood BLOOD SPECIMEN / Unknown Extra Tube / Unknown 05/11/2024 6:10 AM CDT 05/11/2024 6:23 AM CDT Marquis Santana MD LABORATORY [facility] [address] [place] [id number], * SCAN-CARDIAC STRIP (05/11/2024 12:00 AM CDT) Narrative 05/11/2024 12:00 AM CDT Ordered by an unspecified provider. Other Clinical Staff OTHER * ICD ANALYSIS DUAL WITHOUT REPROGRAM (04/30/2024 1:46 PM CDT) Narrative Marquis Santana MD - 04/30/2024 1:46 PM CDT Susana Joyner RN ? 04/30/2024 ??2:04 PM ICD EVALUATION REPORT April 13, 2024 Indication for ICD: Ventricular EPS positive for induction of sustained monomorphic VT, PAF Primary MD: Emanuel Bhat MD Implanting MD: Marquis Santana MD DEVICE DATA Medtronic Evera MRI XT [id number] SN: [id number] Implant Date 08/03/2019 LEAD DATA Atrial Lead: Medtronic 5076 - 52 MRI SN: [id number] Implant Date 08/03/2019 RV Lead: Medtronic [id number] - 62 MRI SN: [id number] Implant Date 08/03/2019 Tachy therapy hx: none 01/2023 Presence of a glassed feedthrough creates increased risk of unexpected HV arching within the header during therapy delivery. All HV pathways have been programmed B>AX. Hx: ??DCCV 04/30/24 DCCV ??04/19/24 Location of evaluation: [facility] P/R 18 post Cardioversion Reason for evaluation: Provider Request MEASUREMENTS Atrial Sensing - P wave: 1.4 mV Atrial Capture: 0.625 V @ 0.4 ms - auto Atrial Lead Impedance: 399 ohms Ventricular Sensing - R wave: 5.8 mV RV Capture: 0.875 V @ 0.4 ms Ventricular Pacing Lead Impedance: 323 ohms ?? Ventricular Shock Impedance: 63 ohms Underlying rhythm: SR ~76 bpm DIAGNOSTIC DATA - since 04/26/24 (alert for AT/AF), last phone note 04/15/24 Atrial paced - 0.7% ??Ventricular paced - 9.6% Atrial episodes: ??(AT/AF alert for 6 hrs is ON) None since Cardioversion, prior to that 91.1% burden for the past 10 days. ?? Frederick is active on medication list. ? Associated symptoms: Fatigue Ventricular episodes: None ? Associated symptoms: n/a Histogram: Appropriate heart rate distribution when in sinus. Battery voltage: 2.91 V ??Estimated battery longevity 1.7 years Last capacitor reform: 04/12/2024 ??Charge time: 4.2 seconds ?? FINAL VENTRICULAR TACHYCARDIA PARAMETERS Rate (bpm): 150 - 188 Therapy: Monitor only ? NID: 36 Rate (bpm): ? >188 Therapy: ATP during charge, 35 J x 6 ? NID: 30/40 FINAL BRADYCARDIA PARAMETERS Mode: AAI <=> DDD ??Lower rate: 60 bpm ??Upper rate: 130/130 bpm ?? AV Delay: 180/150 ms ?? Mode Switch: 150 bpm ??Rate Response: Mode switch only (Med/Low, /) Atrial - Amplitude: Adaptive 1.25 V ??Pulse width: 0.4 ms ?? Sensitivity: 0.15 mV ??Refractory: Auto, 250 ms ??Polarity: Bipolar Ventricular - Amplitude: Adaptive 1.75 V ??Pulse width: 0.4 ms ?? Sensitivity: 0.3 mV ??Polarity: Bipolar Changes made: Device temporarily reprogrammed, iterative adjustments made during interrogation/testing. No permanent changes made. Conclusion: Normal ICD function with recurrent AF: Cardioversion today: back in SR. ??Patient feels fatigued when in AF. Stable lead measurements. Battery longevity with 1.7 years remaining. Reminded patient and family to call Device Clinic if he experiences any concerning symptoms. Patient has heard alert tones in the past two weeks from his device: per sql programmer reason for alert was that it was unable to send a transmission. ??Patient and family confirm that bedside monitor is plugged in. ??Provided family with [employer] Tech Support number in case this happens again. Follow up: as previously scheduled [facility] on 06/25/24 prior to seeing Rosemarie Senior NP in [place] Routine follow up: Every 3 - 4 months via [facility] remote with annual Price or clinic with Dr. Santana each February. Susana Joyner, RN Nurse Clinician II [facility] Pacemaker/ICD Clinic [phone] Marquis Santana MD CARDIAC SERVICES ORD * EP CARDIOVERSION (04/30/2024 12:06 PM CDT) Anatomical Region Laterality Modality X-Ray Angiograph y Narrative 04/30/2024 12:06 PM CDT Nora Lara NP ? 04/30/2024 12:[address] [facility] Cardiac Electrophysiology Procedure Note DOS: 04/30/2024 Brief History: ??Rain Centeno is a pleasant 73 y.o. year old with history of atrial fibrillation who now presents to OP NPO since midnight for direct current cardioversion. ??Xarelto 20 mg daily with no missed doses for at least 3 consecutive weeks. ?? Procedure Description: ??Time out was called. ??Brief general anesthesia by anesthesia service. ??Cardioversion patches were placed in an anterior/posterior position. ??One 200 joules synchronized shock delivered with baptism of sinus rhythm. ?? Complications: ??No acute complications. ?? Plan: ?? Rain Centeno is now recovering from sedation and would anticipate discharge home later today. Dr. Juarez was readily available to provide assistance and direction throughout the time services were performed Nora Lara NP [facility] Cardiac Electrophysiology Marquis Santana MD CV IMAGING * SCAN-CARDIAC STRIP (04/30/2024 12:00 AM CDT) Narrative 04/30/2024 12:00 AM CDT Ordered by an unspecified provider. Other Clinical Staff OTHER * XR HIP 2 OR 3 VIEWS W PELVIS LEFT (04/27/2024 10:24 AM CDT) Only the most recent of6 resultswithin the time period is included. Anatomical Region Laterality Modality HIPS, HIPL, Pelvis Computed Radi ography Impressions 04/30/2024 10:39 AM CDT As noted in findings above. Reading services were personally performed by Riaz Peterson MD, documentation performed by Rosalie Watts, ??MA ??based on my observation of services performed and provider statements to me. Riaz Peterson MD 04/27/2024 Narrative 04/30/2024 10:39 AM CDT For Patients: ??As a result of the Cures Act, medical imaging exams and procedure reports are released immediately into your electronic medical record. ??You may view this report before your referring provider. ?? If you have questions, please contact your health care provider. This radiology exam was performed at the [facility] in [place] and interpreted by Riaz Peterson MD. HISTORY: A 73 y.o. year-old male with left hip pain with history of trauma. TECHNICAL: 3 views of the left hip were obtained consisting of a weightbearing Low AP pelvis with the hips on top and hips internally rotated and AP left hip and cross-table lateral FINDINGS: No evidence of obvious fracture about the left femoral neck. Mild degenerative changes about the left hip joint. ?? Riaz Peterson MD GENERAL IMAGING * TSH WITH REFLEX (04/22/2024 1:29 PM CDT) TSH 1.79 0.27 - 4.20 uIU/mL 04/22/2024 2:25 PM CDT [facility] Blood BLOOD SPECIMEN / Unknown Venipuncture / Unknown 04/22/2024 1:29 PM CDT 04/22/2024 1:29 PM CDT Narrative [facility] - 04/22/2024 2:25 PM CDT In Adults, TSH values between 5.00 and 10.00 uIU/ml do not necessarily indicate the presence of Hypothyroidism. Correlation with clinical findings such as presence of goiter and/or Thyroperoxidase (TPO) Antibody may be helpful. For more information please refer to YU 2004; 291: 228-238. Marquis Santana MD CHEMISTRY [facility] [address] [place] [address] * SCAN-CARDIAC STRIP (04/19/2024 12:00 AM CDT) Narrative 04/19/2024 12:00 AM CDT Ordered by an unspecified provider. Other Clinical Staff OTHER * EP CARDIOVERSION (04/08/2024 2:44 PM CDT) Anatomical Region Laterality Modality X-Ray Angiograph y Narrative 04/08/2024 2:44 PM CDT Seamus Cole MD ? 04/08/2024 ??4:[address] [facility] Cardiac Electrophysiology Procedure Note DOS: 04/08/2024 Brief [...] time services were performed David Ugarte NP [facility] Cardiac Electrophysiology Seamus Cole MD Cardiac Arrhythmia Section [facility] aMrquis Santana MD CV IMAGING * SCAN-CARDIAC STRIP (04/08/2024 12:00 AM CDT) Narrative 04/08/2024 12:00 AM CDT Ordered by an unspecified provider. Other Clinical Staff OTHER * XR CHEST 2 VIEWS PA AND [...] radiographically. Dictated by Albin Hunt MD @ [facility] ??2 2023 ??3:21PM (Electronically Signed) [email or web address] Narrative 03/30/2024 3:21 PM CDT For Patients: [...] @ Mar 30 2024 3:21PM (Electronically Signed) [email or web address] Riaz Peterson MD GENERAL IMAGING * SCAN-CARDIAC STRIP (03/19/2024 9:21 AM CDT) Scanner OTHER * (ABNORMAL) HEPATIC FUNCTION PANEL (03/19/2024 4:50 AM CDT) Only the most recent of4 resultswithin the time period is included. ALBUMIN 3.3(L) 4.0 - 4.9 g/dL 03/19/2024 5:44 AM CDT [facility] TRAL LABORATORY PROTEIN,TOTAL 6.1 6.0 - 8.0 g/dL 03/19/2024 5:44 AM CDT [facility] BILIRUBIN,TOTAL 0.5 0.0 - 1.2 mg/dL 03/19/2024 5:44 AM CDT [facility] BILIRUBIN,DIRECT 0.2 0.0 - 0.3 mg/dL 03/19/2024 5:44 AM CDT [facility] TRAL LABORATORY BILIRUBIN,INDIRE CT 0.3 0.2 - 0.8 mg/dL 03/19/2024 5:44 AM CDT [facility] ALK PHOSPHATASE 122 40 - 129 IU/L 03/19/2024 5:44 AM CDT [facility] ALT (SGPT) 37 10 - 50 IU/L 03/19/2024 5:44 AM CDT [facility] AST (SGOT) 56(H) 10 - 50 IU/L 03/19/2024 5:44 AM CDT [facility] TR[facility] LAB[facility] Blood BLOOD SPECIMEN / Unknown Venipuncture / Unknown 03/19/2024 4:50 AM CDT 03/19/2024 5:14 AM CDT Varghese Mckenna MD CHEMISTRY Performing Organization Address City/[facility]/ZIP Co de Phone Number [facility] [address] [address], [place] * SCAN-CARDIAC STRIP (03/19/2024 12:01 AM CDT) Scanner OTHER * (ABNORMAL) GLUCOSE METER (03/18/2024 8:36 PM CDT) Only the most recent of17 resultswithin the time period is included. GLUCOSE METER 172(H) 65 - 100 mg/dL 03/18/2024 11:27 PM CDT [facility] Blood BLOOD SPECIMEN / Unknown 03/18/2024 8:36 PM CDT 03/18/2024 11:27 PM CDT Lee Carrillo MD CHEMISTRY Performing Organization Address City/[facility]/ZIP Co de Phone Number [facility] [address] [address], [place] * US ARTERIAL LOWER EXTREMITY LEFT [...] - 4.20 uIU/mL 03/17/2024 10:19 PM CDT [facility] Blood BLOOD SPECIMEN / Unknown Venipuncture / Unknown 03/17/2024 4:18 AM CDT 03/17/2024 4:35 AM CDT Narrative [facility] - 03/17/2024 10:19 PM CDT In Adults, TSH values between 5.00 and 10.00 uIU/ml do not necessarily indicate the presence of Hypothyroidism. Correlation with clinical findings such as presence of goiter and/or Thyroperoxidase (TPO) Antibody may be helpful. For more information please refer to YU 2004; 291: 228-238. Shane Ramires DO CHEMISTRY Performing Organization Address City/[facility]/ZIP Co de Phone Number [facility] [address] [address], * T4,FREE (03/17/2024 4:18 AM CDT) T4,FREE 1.37 0.93 - 1.70 ng/dL 03/17/2024 10:51 PM CDT [facility] Blood BLOOD SPECIMEN / Unknown Venipuncture / Unknown 03/17/2024 4:18 AM CDT 03/17/2024 4:35 AM CDT Shane Ramires DO CHEMISTRY [facility] [address] [place] [address], * CK TOTAL (03/17/2024 4:18 AM CDT) Pathologist [facility] CK,TOTAL 133 39 - 308 IU/L 03/17/2024 9:43 PM CDT [facility] Blood BLOOD SPECIMEN / Unknown Venipuncture / Unknown 03/17/2024 4:18 AM CDT 03/17/2024 4:35 AM CDT Shane Ramires DO CHEMISTRY Performing Organization Address [facility]/ZIP Co de Phone Number [facility] [address] [place] [address], * [facility]CIUM IONIZED HOSPITAL DRAW ONLY (03/17/2024 4:18 AM CDT) Only the most recent of4 resultswithin the time period is included. Pathologist [facility] CALCIUM,IONIZE D 1.18 1.15 - 1.27 mmol/L 03/17/2024 4:41 AM CDT [facility] Blood BLOOD SPECIMEN / Unknown Venipuncture / Unknown 03/17/2024 4:18 AM CDT 03/17/2024 4:35 AM CDT Estrella Flores MD CHEMISTRY Performing Organization Address City/[facility]/ZIP Co de Phone Number [facility] [address] [place] [address], * SCAN-CARDIAC STRIP (03/16/2024 7:21 PM CDT) Scanner OTHER * (ABNORMAL) URINALYSIS MICROSCOPIC (03/16/2024 4:32 PM CDT) Pathologist [facility] RBC 0-2 0-2, None Seen /HPF 03/16/2024 4:49 PM CDT [facility] TRAL LAB[facility]AT[facility] WBC 0-2 0-2, 3-5, None Seen /HPF 03/16/2024 4:49 PM CDT [facility] BACTERIA None Seen None Seen, Rare, Few Bacteria/ HPF 03/16/2024 4:49 PM CDT [facility] EPITHELIAL CELLS None Seen None Seen, Few Epi/HPF 03/16/2024 4:49 PM CDT [facility] TRAL LABORATORY HYALINE CASTS 11-25(A) 0-2, 3-5 /LPF 03/16/2024 4:49 PM CDT [facility] Urine URINE SPECIMEN / Unknown Non-Blood / Unknown 03/16/2024 4:32 PM CDT 03/16/2024 4:40 PM CDT Lucio ARMAS URINE [facility] [address] [place] [address], [place] * (ABNORMAL) UA W/ SEDIMENT EXAM REFLEXED PER CRITERIA (03/16/2024 4:32 PM CDT) COLOR Yellow Yellow Color 03/16/2024 4:49 PM CDT [facility] CLARITY Clear Clear Clarity 03/16/2024 4:49 PM CDT [facility] SPECIFIC GRAVITY,URINE 1.015 1.010, 1.015, 1.020, 1.025 03/16/2024 4:49 PM CDT [facility] PH,URINE 5.0(A) 6.0, 7.0, 8.0, 5.5, 6.5, 7.5, 8.5 03/16/2024 4:49 PM CDT [facility] UROBILINOGEN, QUALITATIVE Normal Normal EU/dl 03/16/2024 4:49 PM CDT [facility] PROTEIN, URINE Trace(A) Negative mg/dL 03/16/2024 4:49 PM CDT [facility] GLUCOSE, URINE >=1000(A) Negative mg/dL 03/16/2024 4:49 PM CDT [facility] KETONES,URINE Negative Negative mg/dL 03/16/2024 4:49 PM CDT [facility] TRAL LABORATORY BILIRUBIN,URI NE Negative Negative 03/16/2024 4:49 PM CDT [facility] TRAL LABORATORY OCCULT BLOOD,URINE Negative Negative 03/16/2024 4:49 PM CDT [facility] TR[facility] LAB[facility] NITRITE Negative Negative 03/16/2024 4:49 PM CDT [facility] LEUKOCYTE ESTERASE Negative Negative 03/16/2024 4:49 PM CDT [facility] Urine URINE SPECIMEN / Unknown Non-Blood / Unknown 03/16/2024 4:32 PM CDT 03/16/2024 4:40 PM CDT Lucio ARMAS URINE [facility] [address] [place] [address], * PROCALCITONIN (03/16/2024 4:08 PM CDT) PROCALCITONIN 0.04 ng/ml 03/16/2024 4:59 PM CDT [facility] Blood BLOOD SPECIMEN / Unknown Butterfly / Unknown 03/16/2024 4:08 PM CDT 03/16/2024 4:18 PM CDT Narrative [facility] - 03/16/2024 4:59 PM [...] ng/mL are obtained. Lucio ARMAS SEND OUTS [facility] [address] [place] [address], * BLOOD CULTURE (03/16/2024 4:08 PM CDT) Only the most recent of2 resultswithin the time period is included. CULTURE No Growth. 03/20/2024 7:10 PM CDT [facility] Blood BLOOD SPECIMEN / Unknown Butterfly / Unknown 03/16/2024 4:08 PM CDT 03/16/2024 4:18 PM CDT Narrative [facility] - 03/20/2024 7:10 PM CDT Low volume blood culture received; possible false negative culture. Lucio ARMAS MICROBIOLOGY [facility]-CENTRAL LABORATORY [address] [place] [address], * ICD ANALYSIS DUAL WITHOUT REPROGRAM (03/16/2024 3:32 PM CDT) Narrative Marquis Santana MD - 03/16/2024 3:32 PM CDT Cyndi Arnold RN ? 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 All HV pathways have been programmed B>AX. Location of evaluation: [facility] Reason for evaluation: Provider Request MEASUREMENTS [...] 10:36 AM. Ventricular rates per histogram below. Xarelto is active on medication list. ? Associated [...] bpm ??Rate Response: Mode switch only (Med/Low, 11/29) Atrial - Amplitude: Adaptive 1.25 V ??Pulse [...] 4 months via [employer] remote with annual Price or clinic with Dr. Santana each February. Cyndi Arnold, RN Nurse Clinician II [facility] Pacemaker/ICD Clinic Marquis Santana MD CARDIAC SERVICES ORD * EXTRA TUBE LIGHT GREEN (03/16/2024 1:23 PM CDT) Blood BLOOD SPECIMEN / Unknown Non-Lab Venipuncture / Unknown 03/16/2024 1:23 PM CDT 03/16/2024 1:33 PM CDT Estrella Flores MD LABORATORY [facility]-CENTRAL LABORATORY [address] [place] [address], * (ABNORMAL) BLOOD GAS,VENOUS (03/16/2024 1:23 PM CDT) PH, VENOUS 7.31(L) 7.32 - 7.43 03/16/2024 1:36 PM CDT [facility] PCO2, VENOUS 68(H) 41 - 51 mmHg 03/16/2024 1:36 PM CDT [facility] PO2, VENOUS 63(H) 35 - 40 mmHg 03/16/2024 1:36 PM CDT [facility] HCO3,VENOUS 34(H) 22 - 29 mmol/L 03/16/2024 1:36 PM CDT [facility] BASE EXCESS, VENOUS, POCT 5.6(H) -2.0 - 3.0 03/16/2024 1:36 PM CDT [facility] O2 SATURATION, VENOUS 93(H) 70 - 75 % 03/16/2024 1:36 PM CDT [facility] PATIENT TEMPERATURE 37.0 Degrees C 03/16/2024 1:36 PM CDT [facility] Blood VENOUS BLOOD SPECIMEN / Unknown Butterfly / Unknown 03/16/2024 1:23 PM CDT 03/16/2024 1:31 PM CDT Estrella Flores MD CHEMISTRY [facility] [address] [place] [address], * LACTATE VENOUS (03/16/2024 1:22 PM CDT) Only the most recent of3 resultswithin the time period is included. LACTATE,VENOUS 0.8 0.5 - 2.0 mmol/L 03/16/2024 2:38 PM CDT [facility] Blood BLOOD SPECIMEN / Unknown Butterfly / Unknown 03/16/2024 1:22 PM CDT 03/16/2024 1:31 PM CDT Lucio ARMAS CHEMISTRY [facility] [address] [address], [place] * (ABNORMAL) HEMOGLOBIN (03/16/2024 1:22 PM CDT) Only the most recent of8 resultswithin the time period is included. HEMOGLOBIN 11.1(L) 13.5 - 17.5 g/dL 03/16/2024 1:39 PM CDT [facility] MCV 101(H) 80 - 100 fL 03/16/2024 1:39 PM CDT [facility] Blood BLOOD SPECIMEN / Unknown Butterfly / Unknown 03/16/2024 1:22 PM CDT 03/16/2024 1:31 PM CDT Lucio ARMAS HEMATOLOGY Performing Organization Address [facility]/ZIP Co de Phone Number [facility] [address] [place], [place] [id number], [place] * (ABNORMAL) FACTOR 10 CHROMOGENIC (03/16/2024 1:22 PM CDT) Pathologist [facility] FACTOR 10 CHROMOGENIC 41(L) 65 - 130 % 03/16/2024 1:46 PM CDT [facility] Blood BLOOD SPECIMEN / Unknown Butterfly / Unknown 03/16/2024 1:22 PM CDT 03/16/2024 1:31 PM CDT Narrative [facility] - 03/16/2024 1:46 PM CDT Therapeutic Range 20-40% Lucio ARMAS SEND OUTS Performing Organization Address City/[facility]/ZIP Co de Phone Number [facility] [address] [place] [address], [place] * CORTISOL TOTAL (03/16/2024 10:29 AM CDT) Pathologist [facility] CORTISOL,TOTAL 15.0 ug/dL 03/16/2024 1:29 PM CDT [facility] Blood BLOOD SPECIMEN / Unknown Non-Lab Venipuncture / Unknown 03/16/2024 10:29 AM CDT 03/16/2024 10:35 AM CDT Narrative [facility]-CENTRAL LABORATORY - 03/16/2024 1:29 PM CDT Cortisol ?Morning Hours ?6:00 ??AM - 10:00 AM ?(4.8-19.5 ug/dL) Cortisol ?Afternoon Hours ??4:00 ??PM - ??8:00 PM ?(2.5-11.9 ug/dL) ? Biotin supplements may cause clinically significant interference for this test assay. ??If interference is suspected, it is strongly recommended that biotin is discontinued for at least one week prior to retesting. Estrella Flores MD CHEMISTRY [facility]AL LAB[facility]ATORY [address] [place] [address], [place] * ECHO TTE LIMITED W CONTRAST W COLOR W DOPPLER (03/16/2024 10:23 AM CDT) Only the most recent of2 resultswithin the time period is included. AORTIC VALVE MEAN PG 7 mmHg EJECTION FRACTION 50 - 55% Anatomical Region Laterality Modality Ultrasound 03/16/2024 9:42 AM CDT Narrative 03/16/2024 11:06 AM CDT ECHOCARDIOGRAM RAIN CENTENO ? Accession#: ?? [id number] : ?1950 73 years Study Date: ?? 03/16/2024 9:42:01 AM Gender: M ?BP: ? 84/55 mmHg Height: 137.00 cm ?BSA: ?2.42 m? ? ? Weight: 200.00 kg ?Tech: ? OLL ? Referring MD: ESTRELLA FLORES Site: ? [facility] Reading Location: ANW Patient Location: Inpatient. [...] documentation: 2 ml diluted Definity, lot #[id number], [facility]# [id number] was administered peripherally to enhance visualization of [...] Tech: ANGIE Referring MD: ESTRELLA FLORES Site: [facility] Reading Location: ANW IP Patient Location: [...] documentation: 2 ml diluted Definity, lot #[id number], [facility]#[id number] was administered peripherally to enhance visualization of [...] MD - 03/16/2024 1:03 AM CDT Varghese Mceknna MD ? 03/16/2024 ??1:05 AM BEDSIDE US [...] 6-15 ng/L ng/L 03/15/2024 8:14 PM CDT [facility] Blood BLOOD SPECIMEN / Unknown Venipuncture / Unknown 03/15/2024 7:54 PM CDT 03/15/2024 7:56 PM CDT Janina Valero MD CHEMISTRY [facility] [address] [place] [address] * CT CERVICAL SPINE WO (03/15/2024 2:10 [...] PR1 (03/15/2024 1:33 PM CDT) Narrative Fatemeh Hutn CRNA - 03/15/2024 1:33 PM CDT Fatemeh [...] 6-15 ng/L ng/L 03/15/2024 8:01 PM CDT [facility] Blood BLOOD SPECIMEN / Unknown Venipuncture / Unknown 03/15/2024 12:48 PM CDT 03/15/2024 12:57 PM CDT [facility] LABORATORY - 03/15/2024 8:01 PM CDT [...] department patient population. Janina Valero MD CHEMISTRY [facility] [address] [place] [address] * Type and Screen (03/15/2024 12:48 PM CDT) Only the most recent of2 resultswithin the time period is included. ABORH O Rh Positive 03/15/2024 1:29 PM CDT [facility] BLOOD BANK ANTIBODY SCREEN Negative Negative 03/15/2024 1:29 PM CDT [facility] BLOOD BANK SPECIMEN EXPIRATION DATE/TIME 03/18/24 23:59 03/15/2024 1:29 PM CDT [facility] BLOOD BANK Blood BLOOD SPECIMEN / Unknown Venipuncture / Unknown 03/15/2024 12:48 PM CDT 03/15/2024 12:57 PM CDT Janina Valero MD BLOOD BANK Performing Organization Address [facility] de Phone Number [facility] BLOOD BANK [address] [place] [address] * (ABNORMAL) PROTIME- INR (03/15/2024 12:48 PM CDT) Only the most recent of3 resultswithin the time period is included. INR 2.4(H) <1.3 03/15/2024 1:09 PM CDT [facility] PROTIME 26.0(H) 10.3 - 12.3 sec 03/15/2024 1:09 PM CDT [facility] Blood BLOOD SPECIMEN / Unknown Venipuncture / Unknown 03/15/2024 12:48 PM CDT 03/15/2024 12:57 PM CDT Narrative [facility] - 03/15/2024 1:09 PM CDT [...] Janina Valero MD HEMATOLOGY Performing Organization Address City/[facility] Co de Phone Number [facility] [address] [place] [address] * SCAN-CARDIAC STRIP (02/21/2024 9:16 AM CDT) Scanner OTHER * Platelets AM (02/21/2024 7:50 AM CDT) Only the most recent of3 resultswithin the time period is included. PLATELET COUNT 280 140 - 440 thou/cu mm 02/21/2024 8:10 AM CDT [facility] MPV 8.7 6.5 - 11.0 fL 02/21/2024 8:10 AM CDT [facility] Blood BLOOD SPECIMEN / Unknown Venipuncture / Unknown 02/21/2024 7:50 AM CDT 02/21/2024 8:01 AM CDT Danay Fuchs MD HEMATOLOGY Performing Organization Address City/[facility]/ZIP Co de Phone Number [facility] [address] [place] [address], * (ABNORMAL) WBC AM (02/21/2024 7:50 AM CDT) Only the most recent of2 resultswithin the time period is included. WHITE BLOOD COUNT 12.5(H) 4.5 - 11.0 thou/cu mm 02/21/2024 8:10 AM CDT [facility] LABORATORY-[facility] TRAL LABORATORY NRBC 0.0 % 02/21/2024 8:10 AM CDT [facility] TRAL LAB[facility] ABS NRBC 0.0 thou /cu mm 02/21/2024 8:10 AM CDT [facility] TRAL LABORATORY Blood BLOOD SPECIMEN / Unknown Venipuncture / Unknown 02/21/2024 7:50 AM CDT 02/21/2024 8:01 AM CDT Danay Fuchs MD HEMATOLOGY [facility] [address] [place] [address], * SCAN-CARDIAC STRIP (02/21/2024 4:55 AM CDT) Scanner OTHER * (ABNORMAL) HEMATOCRIT (02/20/2024 1:13 PM CDT) [facility] HEMATOCRIT 32.4(L) 37.0 - 53.0 % 02/20/2024 1:30 PM CDT [facility] Blood BLOOD SPECIMEN / Unknown Venipuncture / Unknown 02/20/2024 1:13 PM CDT 02/20/2024 1:19 PM CDT Narrative [facility] - 02/20/2024 1:30 PM CDT Obtain before initiating IV heparin therapy if not done within previous 24 hours. Obtain before initiating IV heparin therapy if not done within previous 24 hours. Obtain before initiating IV heparin therapy if not done within previous 24 hours. Jose G Guzman MD HEMATOLOGY [facility] [address] [place] [address], * (ABNORMAL) BUN (02/20/2024 1:13 PM CDT) [facility] BUN 32(H) 8 - 23 mg/dL 02/20/2024 2:37 PM CDT [facility] Blood BLOOD SPECIMEN / Unknown Venipuncture / Unknown 02/20/2024 1:13 PM CDT 02/20/2024 1:19 PM CDT Jose G Guzman MD CHEMISTRY [facility] [address] [place] [address], * (ABNORMAL) CREATININE (02/20/2024 1:13 PM CDT) Pathologist [facility] eGFR 65(L) >90 mL/min/1.7 3m2 02/20/2024 2:37 PM CDT [facility] Comment:As of 2021, eG FR is calculated by the CKD-EPI creatinine equation without race adjustment. ??eGFR can be influenced by muscle mass, exercise, and diet. ??The reported eGFR is an estimation only and is only applicable if the renal function is stable. CREATININE 1.18 0.70 - 1.20 mg/dL 02/20/2024 2:37 PM CDT [facility] Blood BLOOD SPECIMEN / Unknown Venipuncture / Unknown 02/20/2024 1:13 PM CDT 02/20/2024 1:19 PM CDT Jose G Guzman MD CHEMISTRY Performing Organization Address [facility]/ZIP Co de Phone Number [facility] [address] [place] [address], * APTT (02/20/2024 1:13 PM CDT) APTT 35 28 - 36 sec 02/20/2024 1:41 PM CDT [facility] Blood BLOOD SPECIMEN / Unknown Venipuncture / Unknown 02/20/2024 1:13 PM CDT 02/20/2024 1:19 PM CDT Narrative [facility] - 02/20/2024 1:41 PM CDT Therapeutic Range: 57-87 seconds Jose G Guzman MD HEMATOLOGY Performing Organization Address City/[facility] Co de Phone Number [facility] [address] [place] [address], * XR PELVIS 1 VIEW (02/20/2024 7:27 AM CDT) Anatomical Region Laterality Modality Pelvis Digital Radiogra phy 02/20/2024 7:47 AM CDT Impressions 02/20/2024 7:47 AM CDT Very subtle left femoral neck fracture is better seen on CT than radiographs. Dictated by Chantell Bobby MD @ Feb 20 2024 ??7:47AM (Electronically Signed) [email or web address] Narrative 02/20/2024 7:47 AM CDT For Patients: [...] @ Feb 20 2024 7:47AM (Electronically Signed) [email or web address] Ellie [facility] * SCAN-CARDIAC STRIP (02/20/2024 7:02 AM CDT) Scanner OTHER * SCAN-CARDIAC STRIP (02/19/2024 6:40 PM CDT) Scanner OTHER * (ABNORMAL) COMPREHENSIVE BLOOD GAS MIXED VENOUS (02/19/2024 10:03 AM CDT) O2 SATURATION, MEASURED, MIXED VENOUS 63(L) 70 - 75 % 02/19/2024 10:03 AM CDT [facility] LABORATORY-[facility] TRAL LABORATORY PATIENT TEMPERATURE 37.0 Degrees C 02/19/2024 10:03 AM CDT [facility] TRAL LABORATORY HEMOGLOBIN,BLOO D GAS 10.3(L) 13.5 - 17.5 g/dL 02/19/2024 10:03 AM CDT [facility] TRAL LABORATORY Blood BLOOD SPECIMEN / Unknown 02/19/2024 10:03 AM CDT 02/20/2024 8:46 AM CDT Danay Fuchs MD [facility] [address] [place] [address], * CV Procedure to be Performed (02/19/2024 9:55 AM CDT) Narrative Jose G Guzman MD - 02/19/2024 9:55 AM CDT Jose G Guzman MD ? 02/19/2024 10:06 AM [facility] Advanced Heart Failure Procedure Note Right [...] the end of the procedure. ??[facility] see [facility] for full list of [...] ??Uncomplicated EBL: ??minimal Jose G Guzman MD [facility] Advanced Heart Failure/Transplant Cardiology/[facility] [place] [address] ?? Pager: [phone] Click for [employer] Kathleen Monzon PA [employer] ORD * CVL OTHER PROCEDURE (02/19/2024 9:53 AM CDT) Anatomical Region Laterality Modality Other 02/19/2024 9:53 AM CDT Provider Referring CV IMAGING * (ABNORMAL) CBC WITH AUTO DIFFERENTIAL (02/19/2024 7:54 AM CDT) Only the most recent of2 resultswithin the time period is included. WHITE BLOOD COUNT 12.0(H) 4.5 - 11.0 thou/cu mm 02/19/2024 8:39 AM CDT [facility] RED BLOOD COUNT 3.37(L) 4.30 - 5.90 mil/cu mm 02/19/2024 8:39 AM CDT [facility] HEMOGLOBIN 10.7(L) 13.5 - 17.5 g/dL 02/19/2024 8:39 AM CDT [facility] HEMATOCRIT 32.8(L) 37.0 - 53.0 % 02/19/2024 8:39 AM [facility] MCV 97 80 - 100 fL 02/19/2024 8:39 AM [facility] MCH 31.8 26.0 - 34.0 pg 02/19/2024 8:39 AM [facility] MCHC 32.6 32.0 - 36.0 g/dL 02/19/2024 8:39 AM [facility] RDW 14.6 11.5 - 15.5 % 02/19/2024 8:39 AM [facility] PLATELET COUNT 273 140 - 440 thou/cu mm 02/19/2024 8:39 AM [facility] MPV 9.2 6.5 - 11.0 fL 02/19/2024 8:39 AM [facility] NRBC 0.0 % 02/19/2024 8:39 AM [facility] ABS NRBC 0.0 thou /cu mm 02/19/2024 8:39 AM [facility] % NEUT 55.8 % 02/19/2024 8:39 AM [facility] % LYMPH 25.2 % 02/19/2024 8:39 AM [facility] % MONO 15.4 % 02/19/2024 8:39 AM [facility] % EOS 2.1 % 02/19/2024 8:39 AM [facility] % BASO 0.7 % 02/19/2024 8:39 AM [facility] % IMMATURE GRAN (METAS,MYELOS,TN OS) 0.8 % 02/19/2024 8:39 AM [facility] ABSOLUTE NEUTROPHILS 6.7 1.7 - 7.0 thou/cu mm 02/19/2024 8:39 AM [facility] ABSOLUTE LYMPHOCYTES 3.0(H) 0.9 - [...] 8:26 AM CDT Danay Fuchs MD HEMATOLOGY [facility] [address] [place] [id number], * SCAN-CARDIAC STRIP (02/19/2024 7:30 AM CDT) [...] @ 02/17/2024 9:12:13 PM (Electronically Signed) Alba Eleanor Ha DO US * (ABNORMAL) COMP METABOLIC PANEL (02/17/2024 8:40 PM CDT) SODIUM 135(L) 136 - 145 mmol/L 02/17/2024 9:23 PM CDT [facility] POTASSIUM 5.3(H) 3.5 - 5.1 mmol/L 02/17/2024 9:23 PM T [facility] CHLORIDE 99 98 - 107 mmol/L 02/17/2024 9:23 PM T [facility] CO2,TOTAL 25 22 - 29 mmol/L 02/17/2024 9:23 PM T [facility] ANION GAP 11 5 - 18 02/17/2024 9:23 PM T [facility] GLUCOSE 123(H) 70 - 99 mg/dL 02/17/2024 9:23 PM T [facility] CALCIUM 8.9 8.8 - 10.2 mg/dL 02/17/2024 9:23 PM T [facility] BUN 70(H) 8 - 23 mg/dL 02/17/2024 9:23 PM T [facility] CREATININE 1.69(H) 0.70 - 1.20 mg/dL 02/17/2024 9:23 PM T [facility] BUN/CREAT RATIO 41(H) 10 - 20 9:23 PM T [facility] eGFR 42(L) [...] - 8.0 g/dL 02/17/2024 9:23 PM CDT [facility] BILIRUBIN,TOTAL 0.9 0.0 - 1.2 mg/dL 02/17/2024 9:23 PM CDT [facility] ALK PHOSPHATASE 97 40 - 129 IU/L 02/17/2024 9:23 PM [facility]T [facility] ALT (SGPT) 24 10 - 50 IU/L 02/17/2024 9:23 PM CDT [facility] AST (SGOT) 42 10 - 50 IU/L 02/17/2024 9:23 PM T [facility] Blood BLOOD SPECIMEN / Unknown Venipuncture / Unknown 02/17/2024 8:40 PM CDT 02/17/2024 8:45 PM CDT Alba Ha DO [facility] [address] [place] [address], * (ABNORMAL) LIPID PANEL (01/07/2018 4:35 PM CDT) CHOLESTEROL,TOTAL 174 100 - 199 mg/dL 01/07/2018 6:28 PM CDT [facility] TRIGLYCERIDES 194(H) <150 mg/dL 01/07/2018 6:28 PM CDT [facility] HDL CHOLESTEROL 64 >40 mg/dL 04/11/201 8 6:28 PM CDT [facility] NON-HDL CHOLESTEROL 110 <145 mg/dl 01/07/2018 6:28 PM CDT [facility] CHOL/HDL RATIO 2.72 <4.50 01/07/2018 6:28 PM CDT [facility] LDL CHOLESTEROL 71 <=130 mg/dL 01/07/2018 6:28 PM CDT [facility] PROVIDER ORDERED STATUS RANDOM 01/07/2018 6:28 PM CDT [facility] Blood BLOOD SPECIMEN / Unknown Venipuncture / Unknown 01/07/2018 4:35 PM CDT 01/07/2018 4:39 PM CDT Aba Boo MD CHEMISTRY Performing Organization Address City/State/[facility] Co de Phone Number [facility] [address] [place] [address] from Last 3 Months or Most Recently Relevant to Health Maintenance Advance Directives * Full Code (Latest Code Status on File) Date Activated Date Inactivated Comments 05/14/2024 9:53 AM 05/14/2024 1:42 PM Question Answer Comments Code Status Discussion: Other * Full Code Date Activated Date Inactivated Comments 05/11/2024 10:50 AM 05/11/2024 8:45 PM Question Answer Comments Code Status Discussion: Other (specify in commen ts): * Full Code Date Activated Date Inactivated Comments 04/30/2024 11:48 AM 04/30/2024 5:09 PM Question Answer Comments Code Status Discussion: Unable to Assess Preferences, Provider to review later * Full Code Date Activated Date Inactivated Comments 04/19/2024 9:12 AM 04/19/2024 12:58 PM Question Answer Comments Code Status Discussion: Reviewed Preferences * Full Code Date Activated Date Inactivated Comments 04/08/2024 2:45 PM 04/08/2024 6:07 PM Question Answer Comments Code Status Discussion: Other Care Teams Back Gray Cloth Washer Relationship Specialty Start Date End Date Aba Boo MD [address] [place] [address] PCP - General Family Practice 11/18/19 Destin Johnston MD [address] [phone] Cardiology - CHF Cardiovascular Disease 04/14/20 Nurses, Advanced Heart Failure [address] [place] [id number] Advanced Heart Failure/Transplant Card 04/14/20
--- OUTSIDE RECORDS SUMMARY | 2024-05-19 13:04 | XMS_ITS | Encounter Summary ---
Author [facility] Address [address], [place] [address] Care Team Providers Care Corrections Counselor Name Role Phone Clinician, Not Found MD Primary Care Provider Un available Reason for Visit * Reason Comments Questions Encounter Details Date Type Department Care Team (Late st Contact Info) Description 12/30/2023 Telephone [facility] [address] [place], [place] [id number] Zakia Carrillo, CURRICULUM FACILITATOR, GROCERY CARRIER [address] [place] [address] Questions Social History Tobacco Use Types Packs/Day [...] [place] * Erendira Prince - 12/30/2023 3:02 PM [...] can we send you a message in Loftware? No [Uniforms Sales Representative/Real Estate Acquisition Analyst: Relay to patient; We make every effort to get back to you sameday, however it may take 1-2 business days depending on the nature of the communication.] documented in this encounter Plan of Treatment Not on file documented as of this encounter Visit Diagnoses Not on filedocumented in this encounter Care Teams Corrections Counselor Relationship Specialty Start Date End Date Clinician, Not Found, [place] [address] PCP - General 06/23/20 documented as of this encounter
--- OUTSIDE RECORDS SUMMARY | 2024-05-19 13:04 | XMS_ITS | Encounter Summary ---
Author Organization [facility] Address [address] [place] [address] Care Team Providers Care Energy Project Manager Name Role Phone Clinician, Not Found MD Primary Care Provider Un available Reason for Referral * Therapies (Routine) - New Request Specialty Diagnoses / Procedures Referred By Contrashaun paz Referred To Contact Diagnoses Pain of left hip Conner Boudreaux DO [address] [place] [address] Referral ID Status Reason Start Date Expiration Date V isits Requested Visits Authorized [id number] New Request 02/12/2024 02/11/2025 999 999 Scheduling Instructions Your clinician recommended an appointment with [facility]. You can quickly make your appointment online at [email or web address]. You can also call [phone] for help scheduling your appointment. We suggest [...] Diagnoses Left foot pain Conner Boudreaux DO [address] [place] [address] Referral ID Status Reason Start Date Expiration Date V isits Requested Visits Authorized [id number] New Request 02/12/2024 05/13/2025 1 1 Scheduling Instructions Your clinician has recommended an appointment with [facility]. You can quickly make your appointment online at [facility]/[email or web address]. You can also call [phone] for help scheduling your appointment. We suggest you call your health insurance company about your coverage and benefits for this appointment. Question Answer Appointment Urgency? Non-Urgent Reason for visit? hammer toe/foot pain * Procedure/Equipment (Routine) - Incomplete Specialty Diagnoses / Procedures Referred By Contac t Referred To Contact Diagnoses Pain of left hip Procedures XR Pelvis W Lt Lateral Hip Conner Boudreaux DO [address] [place] [address] [address] Referral ID Status Reason Start Date Expiration Date V isits Requested Visits Authorized [id number] Incomplete 02/12/2024 05/13/2025 1 1 Reason for Visit * Reason Comments LEG PAIN Back of buttocks jay n leg pain since last night Encounter Details Date Type Department Care Team (Late st Contact Info) Description 02/12/2024 6:50 PM CDT Office Visit [facility] [address] [place] [address] Conner Boudreaux DO [address] [facility] [place] [address] Pain of left hip (Primary Dx); Left [...] Schedule your physical therapy appointment by calling [phone]. The following medications were prescribed at your visit : Orders Placed This Encounter Medications HYDROcodone-acetaminophen (NORCO) 5-325 MG tablet Sig: Take 1 Tablet by mouth every 8 hours as needed for Pain. Dispense: 12 Tablet Refill: 0 Medication Refill Requests: Prescription Refill Requests are not filled on Weekends or on Weekdays after 3:00PM For all medication refills: Request a refill using [facility] or contact your Pharmacy documented in this encounter Progress Notes * Conner Boudreaux DO - 02/12/2024 12:00 AM CDT NAME: MERRICK CENTENO CSN: [id number] CLINIC NOTE DATE OF SERVICE: 02/12/2024 : [...] it worse. PAST MEDICAL HISTORY: Reviewed in [facility]. REVIEW OF SYSTEMS: Temperature is afebrile. [...] is having recurrent symptoms. Recommend physical therapy. [place] for pain relief, heat and massage. CONNER BOUDREAUX DO [facility]/AQS /[id number] documented in this encounter Plan of Treatment [...] hip documented in this encounter Care Teams Energy Project Manager Relationship Specialty Start Date End Date Clinician, Not Found, [place] [address] PCP - General 06/23/20 documented as of this encounter
--- OUTSIDE RECORDS SUMMARY | 2024-05-19 13:04 | XMS_ITS | Encounter Summary ---
Author Organization [facility] Address [address], [place] [address] Care Team Providers Care Bow Maker Machine Tender Name Role Phone Clinician, Not Found MD Primary Care Provider Un available Reason for Visit * Procedure/Equipment (Routine) - Incomplete Specialty Diagnoses / Procedures Referred By Contac t Referred To Contact Diagnoses Pain of left hip Procedures XR Pelvis W Lt Lateral Hip Sanjay Leach DO [address] [facility] [place] [address] Referral ID Status Reason Start Date Expiration Date V isits Requested Visits Authorized [id number] Incomplete 02/12/2024 05/13/2025 1 1 Encounter Details Date Type Department Care Team (Late st Contact Info) Description 02/12/2024 7:10 PM CDT Ancillary Procedure [facility] [address] Radiology [address] [place] [phone] Sanjay Leach DO [address] [facility] [place] [address] Pain of left hip Social History Tobacco [...] hip documented in this encounter Care Teams Bow Maker Machine Tender Relationship Specialty Start Date End Date Clinician, Not Found, [place] [address] PCP - General 06/23/20 documented as of this encounter
== END 2024-05-19 13:02 | disposition home or self-care (01) ==
LOC: WOUND 13:01
PROVIDERS: PCP Family Medicine; Visit Provider Surgery
DX: I87.332 Chronic venous hypertension (idiopathic) with ulcer and inflammation of left lower extremity (principal); I89.0 Lymphedema, not elsewhere classified; L97.822 Non-pressure chronic ulcer of other part of left lower leg with fat layer exposed
CPT/HCPCS: 15271; Q4121

== ENCOUNTER 2024-05-26 13:06 | Outpatient (CLI) | payer MEDICARE, BC, SELFPAY ==
--- OUTSIDE RECORDS SUMMARY | 2024-05-26 13:07 | XMS_ITS | Encounter Summary ---
Author Organization [facility] Address [address] [address] Phone Care Team Providers Care Air Brake Operator Name Role Phone Aba Boo MD [...] filedocumented in this encounter Care Teams Air Brake Operator Relationship Specialty Start Date End Date Aba Boo MD [facility] & [address] [address] PCP - General Family Medicine 04/02/24 documented as of this encounter
--- OUTSIDE RECORDS SUMMARY | 2024-05-26 13:07 | XMS_ITS | Clinical Summary ---
Author Organization [facility] Address [address] [address] Phone Care Team Providers Care Distribution Coordinator Name Role Phone Aba Boo MD Primary Care Provider [phone] Allergies No known active allergies Encounters Date Type Department Care Team Description 04/02/2024 3:26 PM CDT - 04/02/2024 4:45 PM CDT Emergency [facility] Emergency Department [address] [place] [address] Lee Frye, Pacemaker complications, initial encounter (Primary Dx) Discharge Disposition: Home and/or Self Care 04/02/2024 7:00 AM CDT Cardiac Device Remote [facility] [address] [place] [id number] Ancillary, [facility] Pacer Remote Monitor Sinoatrial [...] age to complete this topic Care Teams Distribution Coordinator Relationship Specialty Start Date End Date Aba Boo MD [facility] & [facility] [address] [place] [address] PCP - General Family Medicine 04/02/24
--- OUTSIDE RECORDS SUMMARY | 2024-05-26 13:07 | XMS_ITS | Encounter Summary ---
Author Organization [facility] Address [address] [address] Phone Care Team Providers Care Sales And Merchandising Representative Name Role Phone Aba Boo MD Primary Care Provider [phone] Reason for Visit * Reason Comments Cardiac Device Check Encounter Details Date Type Department Care Team (Latest Contact Info) Description 04/02/2024 7:00 AM CDT Cardiac Device Remote [facility] [address] [place] [address] Ancillary, [facility] Pacer Remote Monitor Sinoatrial node [...] the original note were not included. 04/02/24 1203 Remote Impression and Plan Place of Service [place];[employer] [facility];In person Remote Monitoring;E.R.;ICD Final Impression Normal Remote Monitor with Events RVP > 40% NO Events/Comments In person care link from [employer]. Pt has been 100% AT/AF since 03/16/24 with ventricular rates 80-120s bpm for majority of time. Presenting egm supporting AT/AF VS 80-120 bpm. No ventricular events logged. Minimally CARGO TRIMMER: 4.3%. Updated Dr. Frye via secure chat. Pt's device is beeping due to unsuccessful [employer] Alert transmission. Pt needs to follow up with [employer] technical support and device clinic they follow with. Follow Up Plan follow-up as scheduled Plan of Care Full report under Media/CV tab Anticoagulation (No updated med list) Battery 2.8 yrs Atrial Fib Chadwick % 100 RVP % 4.3 Heart Rate [...] call notification and can be viewed in [employer]. Presenting rhythm: Associated attestation - Sanjay Alvarez [...] situ documented in this encounter Care Teams Sales And Merchandising Representative Relationship Specialty Start Date End Date Aba Boo MD [facility] & [address] [phone] PCP - General Family Medicine 04/02/24 documented as of this encounter
--- OUTSIDE RECORDS SUMMARY | 2024-05-26 13:08 | XMS_ITS | Clinical Summary ---
Author Organization cube19 [facility] Address [place], [place] [address] Care Team Providers [employer] Person Name Role Phone Aba Boo MD Primary Care Provider + Destin Johnston MD Unavailable [phone] Nurses, Advanced Heart Failure Unavailable + [...] 224 mcg by mouth once daily. Active metOLazone (ZAROXOLYN) 5 mg tabletIndications: Chronic [...] type, unspecified whether angina present, unspecified whether [place] or transplanted heart Take 1 Tablet (10 mg) by mouth at bedtime. 90 Tablet 3 04/13/20 24 Active empagliflozin (Jardiance) 10 mg tabletIndications: Chronic systolic heart failure (HC) Take 1 Tablet (10 mg) by mouth once daily. HOLD until after cardioversion on 04/1904/16/20 24 Active tirzepatide, weight loss, (ZEPBOUND) 7.5 mg/0.5 mL pen Inject 7.5 mg subcutaneous once weekly. Saturdays Active digoxin (LANOXIN) 125 mcg (0.125 mg) tabletIndications: Atrial fibrillation, unspecified type (HC) Take 1 Tablet (125 mcg) by mouth once daily. 30 Tablet 2 05/20/20 24 Active amiodarone (CORDARONE) 200 mg tabletIndications: Atrial fibrillation, persistent (HC) Starting on 05/21/2024: Reduce to Amiodarone 1 tablet (200 mg) by mouth twice daily, THEN 06/18: Reduce to 1 tablet (200 mg) by mouth once daily. 90 Tablet 4 05/21/20 24 Active torsemide (DEMADEX) 20 mg tabletIndications: Primary cardiomyopathy (HC) Take 3 tablets (60mg) in the morning and 2 tablets (40 mg) in the afternoon 90 Tablet 2 05/20/20 24 Active oxygen-air delivery systems (HOME OXYGEN)Indications [...] change per medication history (E-cancel not sent)) gabapentin (NEURONTIN) 300 mg capsule Take 300-600 mg by mouth daily in evening if needed (restless legs). 024 Discontinued(*P atient states no longer taking) furosemide (LASIX) 20 mg tabletIndications: Chronic systolic [...] history (E-cancel not sent)) hydrocortisone 1 % creamIndications:A trial fibrillation, unspecified type (HC) Apply topically to affected area(s) 4 times daily if needed for Itching. 04/19/20 24 024 Discontinued(*P atient states no longer taking) amiodarone (CORDARONE) 200 mg tabletIndications: Atrial fibrillation, persistent (HC) Take 1 Tablet (200 mg) by mouth once daily. Take Amiodarone 400 mg (2 tabs) twice daily for 1 week; then 400 mg (2 tabs) for 1 month; then 200 mg (1 tab) once daily 90 Tablet 3 04/22/20 24 024 Discontinued torsemide (DEMADEX) 20 mg tabletIndications: Primary cardiomyopathy (HC) Take 2 tablets (40mg) twice daily through 05/15/2024, then reduce to 1 and one-half tablets (30mg) twice daily 90 Tablet 2 05/11/20 24 024 Discontinued(Re order (E-cancel not sent)) amiodarone (CORDARONE) 200 mg tabletIndications: Atrial fibrillation, persistent (HC) Take 1 Tablet (200 mg) by mouth two times daily. 05/21/2024: Reduce to 1 tablet (200 mg) by mouth twice daily. 06/18: Reduce to 1 tablet (200 mg) by mouth once daily. 05/14/20 24 024 Discontinued amiodarone (CORDARONE) 200 mg tabletIndications: Atrial fibrillation, persistent (HC) Take 2 Tablets (400 mg) by mouth two times daily. 05/21/2024: Reduce to 1 tablet (200 mg) by mouth twice daily. 06/18: Reduce to 1 tablet (200 mg) by mouth once daily. 05/14/20 24 024 Discontinued(*M edication adjustment) Active Problems [...] and secondary concerned persons: Spouse Alexus Centeno [phone] Daughter Zuri [phone] Hypothyroidism 09/10/2011 Atrial fibrillation Overview: - 07/31/11: [...] Positive blood culture 10/18/202302/16 Hypotension 10/11/2023 02/17/2024 jail (current) use of anticoagulants 09/18/2011 12/03/2015 Osteoarth NOS-ankle 04/22/2007 12/03/19 16 Hypertension (HTN) 6 A-fib 07/03/2011 Overview: controlled on diltiazem Ascending aorta dilatation 1 11/26/2013 Overview: 09/09/11: S/p Aortic Valve Sparing Root Repair with a 34 mm Valsalva Graft and Left Sided MAZE with Ligation of Left Atrial Appendage by Dr. Ashton. Hypothyroidism 02/17/2024 Encounters Date Type Department Care Team Description 05/24/2024 8:30 AM CDT Office Visit [facility] [address] [facility] [address] [place] [address] Iva Johnston CNS Follow Up (CHF FOLLOWUP /POST ABLATION DONE ON 05/11... Post modified diuretic with CMP post ablation/LABS PRIOR IN UPPER [place]/I42.9 (ICD-10-CM) - Primary cardiomyopathy (HC)/I50.23 (ICD-10-CM) - Acute on chronic HFrEF (heart failure with reduced ejection fraction) (HC) /PT states feeling ok./Went into afib a couple days later going back on ) 05/24/2024 Telephone [facility] [place] [address] [facility] [address] [place] [address] Riaz Peterson MD Error-please disregard 05/24/2024 Travel 05/20/2024 12:00 PM CDT Orders Only [facility] [address] [place] [address] Lab, Ale Lab 05/20/2024 Telephone [facility] [place] [address] [facility] [address] [place] [phone] Seamus Cole MD Atrial Fibrillation 05/20/2024 Travel 05/19/2024 Telephone [facility] [address] [facility] [address] [place] [phone] Destin Johnston MD Medication Management 05/19/2024 Telephone [facility] [address] [facility] [address] [place] [phone] Marquis Santana MD Medication Management 05/19/2024 Telephone [facility] [address] [facility] [address] [address] Susana Joyner I, KELSEA Device Check 05/19/2024 Telephone [facility] [address] [facility] [address] [phone] Marquis Santana MD Device Check 05/19/2024 Telephone [facility] [address] [phone] Erendira Sotomayor, JOY OPERATOR HELPER Weight 05/14/2024 9:37 AM CDT Anesthesia Event [facility] [address] [place] [address] Aba Valerio MD 05/14/2024 7:10 AM CDT - 05/14/2024 11:40 AM CDT Hospital Encounter [facility] [address] [place] [address] Seamus Cole MD Atrial fibrillation, persistent (HC) Discharge Disposition: Home Self Care 05/14/2024 Travel 05/13/2024 9:20 AM CDT Orders Only [facility] [address] [facility] [address] [place] [address] Lab 05/13/2024 Telephone [facility] [address] [phone] Martha Warner RN 05/13/2024 Telephone [facility] [address] [phone] Marquis Santana MD Results (LFT and TSH results on Amiodarone) 05/12/2024 Travel 05/11/2024 7:46 AM CDT Anesthesia Event [facility] [address] [place] [address] Alan Yao DO 05/11/2024 5:41 AM CDT - 05/11/2024 5:50 PM CDT Hospital Encounter [facility] [address] [place] [address] Marquis Santana MD Kroll, Sharon Marie, CRNA Primary cardiomyopathy (HC) (Primary Dx); Acute on chronic HFrEF (heart failure with reduced ejection fraction) (HC) Discharge Disposition: Home Self Care 05/11/2024 Travel 05/04/2024 Telephone [facility] [address] [address] Marquis Santana MD Medication Management 05/04/2024 Telephone [facility] [address], [place] [address] Guadalupe Rosado RN Appointment 05/03/2024 Telephone [facility] [address] [phone] Marquis Santana MD Concerns (AFIB) 04/30/2024 12:03 PM CDT Anesthesia Event [facility] [address] [place] [address] Aba Valerio MD Wilson, Timothy Eric, CRNA 04/30/2024 10:08 AM CDT - 04/30/2024 3:03 PM CDT Hospital Encounter [facility] [address] [place] [address] Marquis Santana MD Discharge Disposition: Home Self Care 04/30/2024 Travel 04/27/2024 10:15 AM CDT Ancillary Procedure [address] [facility] [address] [place] [address] 04/27/2024 9:45 AM CDT Office Visit [address] [facility] [address] [place] [address] Riaz Peterson MD Recheck (EP, non-displaced left femoral neck fracture DOI:02/11/2024, x-rays) 04/27/2024 Travel 04/25/2024 Telephone [facility] [address] [place] [address] Dennis Barahona RN 04/22/2024 1:20 PM CDT Orders Only [facility] [address] [place] [address] Lab, Located Within [facility] Lab 04/22/2024 Travel 04/20/2024 Telephone [facility] [address] [address] [place] [address] Marquis Santana MD Atrial Fibrillation 04/19/2024 9:05 AM CDT Anesthesia Event [facility] [address] [place] [address] Marco Aguiar MD Wilson, Timothy Eric, CRNA 04/19/2024 7:18 AM CDT - 04/19/2024 10:53 AM CDT Hospital Encounter [facility] [address] [place] [address] David Ugarte NP Gebre-Amlak, Kassatihun Debebe, MD Deviley, Sarah Jean, CRNA Atrial fibrillation, unspecified type (HC) (Primary Dx) Discharge Disposition: Home Self Care 04/19/2024 Travel 04/16/2024 7:06 AM CDT - 04/16/2024 10:07 AM CDT Hospital Encounter [facility] [address], [place] [address] Marquis Santana MD Wilson, Timothy Eric, CRNA Obesity, unspecified classification, unspecified obesity type, unspecified whether serious comorbidity present (Primary Dx); Chronic systolic heart failure (HC) Discharge Disposition: Home Self Care 04/16/2024 7:05 AM CDT Anesthesia Event [facility] [address], [place] [address] Placido Chowdhury CRNA 04/16/2024 Travel 04/15/2024 Telephone [facility] [place] [address] [facility] [address] [place] [phone] Lianna Dominguez RN Device Check (AF alert) 04/14/2024 Telephone [facility] [place] [address] [facility] [address] [place] [phone] Destin Johnston MD 04/13/2024 4:20 PM CDT Office Visit [facility] [address] [facility] [address] [place] [address] Rosalie Senior NP Heart Problem (Paroxysmal atrial fibrillation); Primary MD (Aba Boo MD/) 04/13/2024 8:00 AM CDT Office Visit [address] [place] [address] Destin Johnston MD CV Heart Failure Est (STAT - IN PERSON F/U VISIT. LABS PRIOR @ [facility] /Acute on chronic HFrEF (heart failure with reduced ejection fraction) //pt states he is in a-fib. He got converted on and went to primary yesterday to confirm he is in A-fib still.//) 04/13/2024 Travel 04/10/2024 Telephone [facility] [place] [address] [address] Marquis Banda RN Device Check (Patient thinks he back in AF) 04/08/2024 2:40 PM CDT Anesthesia Event [facility] [address] [place] [address] Zion Leigh MD 04/08/2024 12:19 PM CDT - 04/08/2024 3:58 PM CDT Hospital Encounter [facility] [address] [place] [address] Marquis Santana MD Wilson, Timothy Eric, CRNA Kushins, Stephen Isaac, MD Persistent atrial fibrillation (HC) (Primary Dx) Discharge Disposition: Home Self Care 04/08/2024 Travel 04/07/2024 Telephone [facility] [address] [facility] [address] [place] [address] Marquis Santana MD Schedule Cardioversion 04/05/2024 10:30 AM CDT Office Visit [address] [phone] Kathleen Boyer PA Follow Up (follow up) 04/05/2024 Travel 04/02/2024 Telephone [facility] [address] [facility] [address] [place] [address] Susana Joyner I, RN Device Check 04/02/2024 Telephone [facility] [address] [facility] [address] [place] [phone] Destin Johnston MD Concerns (Defib beeping ) 03/30/2024 9:55 AM CDT Ancillary Procedure [address] [address] 03/30/2024 9:50 AM CDT Ancillary Procedure [address] [address] 03/30/2024 9:30 AM CDT Office Visit [address] [address] Riaz Peterson MD Hip Pain/problem (left hip pain); Chest Injury (left side rib pain) 03/30/2024 Travel 03/29/[address] [address] Riaz Peterson MD Questions 03/22/2024 Telephone [facility] [address] [facility] [address] [place] [address] Destin Johnston MD Follow Up (BP update) 03/19/2024 Orders Only [facility] [place] [address] [facility] [address] [place] [address] Destin Johnston MD <No scans attached> 03/15/2024 10:28 PM CDT - 03/19/2024 11:22 AM CDT Hospital Encounter [facility] [address] [place] [address] Alan De Santiago MD Kiberenge, MD Kaleb Monroy, MD Keyla Mcgarry, DO Gerardo Lundberg, Lee Kennedy MD [facility] [place] Left displaced femoral neck fracture (HC) (Primary Dx); Closed fracture of multiple ribs of left side, sequela; Closed fracture of neck of left femur with routine healing, subsequent encounter; Acute on chronic HFrEF (heart failure with reduced ejection fraction) (HC) Discharge Disposition: Home Self Care 03/15/2024 6:00 PM CDT Hospital Encounter [facility] [address] [place] [address] [facility] [place] 03/15/2024 1:49 PM CDT Anesthesia Event [address] [address] Fatemeh Hunt CRNA 03/15/2024 12:13 PM CDT - 03/15/2024 9:18 PM CDT Emergency [address] [address] Janina Valero MD Ball, Julieanne Patricia, MD Closed fracture of multiple ribs of left side, initial encounter (Primary Dx); Hypoxia; Hypotension, unspecified hypotension type; Laceration of multiple sites of left lower extremity, initial encounter Discharge Disposition: Crit Acc Hosp w Planned Readmission 03/15/2024 Telephone [facility] [address] [address] Erendira Sotomayor NP Letter (Request letter faxed on 03-12-24 be re-faxed as didn't receive the whole document.) 03/15/2024 Travel 03/12/2024 Telephone [facility] [address] [facility] [address] [place] [address] Erendira Sotomayor NP Questions 03/11/2024 8:35 AM CDT Ancillary Procedure [address] [facility] [address] [place] [address] 03/11/2024 8:30 AM CDT Office Visit [address] [place] [address] Ellie Martinez PA Hip Pain/problem (Non-operative follow-up visit: non-displaced left femoral neck fracture) 03/11/2024 Travel 03/10/2024 Telephone [facility] [address] [address] Erendira Sotomayor NP Medication Management 03/09/[address] [address] Riaz Peterson MD 03/02/2024 1:00 PM CDT Office Visit [address] [facility] [address] [place] [address] Erendira Sotomayor NP CV Heart Failure Est (EST PT. STAT [facility] F[facility]U, LABS PRIOR AT [facility], H/O CHRONIC HFrEF) 03/02/2024 Travel 03/01/2024 Home Care Visit [facility] [address] [place] [phone] Valentina Green, PT CARE COORDINATION 02/26/2024 11:40 AM CDT Ancillary Procedure [address] [facility] [address] [place] [address] 02/26/2024 11:00 AM CDT Office Visit [facility] [place] [address] [place] [address] [address] [facility] [address] [place] [address] Riaz Peterson MD Hip Pain/problem (left hip pain) 02/26/2024 4:30 AM CDT Home Care Visit [facility] [address] [place] [phone] Katharine Nieves OT OT - MISSED VISIT 02/26/2024 Home Care Visit [facility] [address] [place] [phone] Valentina Green, PT EPISODE DISCHARGE 02/26/2024 Travel from Last 3 Months Immunizations Name [...] Sign Reading Time Taken Comments Blood Pressure 108/65 05/24/2024 8:29 AM CDT Pulse 86 05/24/2024 8:29 AM CDT in af ib Temperature 36.6 ??C (97.8 ??F) 05/14/2024 8:00 AM CD T Respiratory Rate 20 05/14/2024 10:46 AM CDT Oxygen Saturation 94% 05/24/2024 8:29 AM CDT Inhaled Oxygen Concentration - - Weight 132.2 kg (291 lb 8 oz) 05/24/2024 8:29 AM CDT Height 200.7 cm (6' 7) 05/24/2024 8:29 AM CDT Body Mass Index 32.84 05/24/2024 8:29 AM CDT Plan of Treatment Upcoming Encounters Date Type Department Care Team (Late st Contact Info) Description 05/27/2024 8:30 AM CDT Appointment ANW Pacemaker MRI/CT [address] [place] [address] 05/27/2024 9:00 AM CDT Appointment [facility] [address] [place] [address] Placido Chowdhury CRNA [address] [facility] [address] [place] [address] [place] [address] [facility] [address] [place] [address] 06/10/2024 8:00 AM CDT Office Visit [place] [phone] [facility] [address] [place] [address] Destin Johnston MD [address] [facility] [address] [place] [address] 06/21/2024 7:30 AM CDT Orders Only [facility] [address] [place] [address] Lab, Ale 06/25/2024 Cardiac Device Check [facility] [phone] 06/29/2024 8:30 AM CDT Office Visit [facility] [place] [address] [facility] [address] [place] [phone] Riaz Peterson MD [address] [facility] [address] [place] [address] 06/29/2024 2:20 PM CDT Office Visit [facility] [address] [facility] [address] [place] [address] Rosalie Senior NP [address] [place], [place] [phone] Health Maintenance Due Date Last Done Comments [...] wt on same day) for age 18+ 05/24/2025 05/24/2024, 04/13/2024, 04/13/2024, Additional history exists AAA screening age 65-74 Completed 03/15/2024 Medical Devices Implanted Type Area Regional Property Manager Device Identifier Shelf Expiration Date Model / Serial / Lot Graft Valsalva 34mm - [id number] Implanted:Qty: [facility] 09/09/[address] [facility] [id number] / / Procedures Procedure Name Priority Date/Time Associated Diagnosis Comments AST (SGOT) Add On 05/20/2024 11:09 AM CDT Therapeutic drug monitoring ALT (SGPT) Add On 05/20/2024 11:09 AM CDT Therapeutic drug monitoring PRO-BNP Routine 05/20/2024 11:09 AM CDT Chronic HFrEF (heart failure with reduced ejection fraction) (HC) BASIC METABOLIC PANEL Routine 05/20/2024 11:09 AM CDT Chronic HFrEF (heart failure with reduced ejection fraction) (HC) EP CARDIOVERSION Routine 05/14/2024 9:46 AM CDT [...] PELVIS W STAT 03/15/2024 2:02 PM CDT [facility] AN IV START Routine 03/15/2024 1:33 PM CDT [facility] AN IV START Routine 03/15/2024 1:33 PM CDT [facility] AN IV START Routine 03/15/2024 1:33 PM CDT [facility] AN IV START Routine 03/15/2024 1:33 [...] CDT Left displaced femoral neck fracture (HC) LIPID PANEL Routine 01/07/2018 4:35 PM CDT Hypertension from Last 3 Months or Most Recently Relevant to Health Maintenance Results * ALT (SGPT) (05/20/2024 11:09 AM CDT) Only the most recent of3 resultswithin the time period is included. ALT (SGPT) 28 10 - 50 IU/L 05/20/2024 2:49 PM CDT [facility] Blood BLOOD SPECIMEN / Unknown Venipuncture / Unknown 05/20/2024 11:09 AM CDT 05/20/2024 11:10 AM CDT Marquis Santana MD CHEMISTRY Performing Organization Address [facility]/ZIP Co de Phone Number [facility] [address] [place] [address] * AST (SGOT) (05/20/2024 11:09 AM CDT) Only the most recent of3 resultswithin the time period is included. AST (SGOT) 42 10 - 50 IU/L 05/20/2024 2:39 PM CDT [facility] Blood BLOOD SPECIMEN / Unknown Venipuncture / Unknown 05/20/2024 11:09 AM CDT 05/20/2024 11:10 AM CDT Marquis Santana MD CHEMISTRY Performing Organization Address [facility] Co de Phone Number [facility] [address] [place] [address] * (ABNORMAL) PRO-BNP (05/20/2024 11:09 AM CDT) Only the most recent of4 resultswithin the time period is included. PRO-BNP 1,866(H) <125 pg/mL 05/20/2024 11:45 AM CDT [facility] Blood BLOOD SPECIMEN / Unknown Venipuncture / Unknown 05/20/2024 11:09 AM CDT 05/20/2024 11:10 AM CDT Narrative [facility] - 05/20/2024 11:45 AM CDT The following cut-points have been suggested [...] 72% for acute congestive heart failure. ? Destin Johnston MD SEND OUTS [facility] [address] [place] [address] * (ABNORMAL) BASIC METABOLIC PANEL (05/20/2024 11:09 AM CDT) Only the most recent of10 resultswithin the time period is included. SODIUM 140 136 - 145 mmol/L 05/20/2024 11:44 AM [facility] POTASSIUM 3.7 3.5 - 5.1 mmol/L 05/20/2024 11:44 AM [facility] CHLORIDE 97(L) 98 - 107 mmol/L 05/20/2024 11:44 AM [facility] CO2,TOTAL 34(H) 22 - 29 mmol/L 05/20/2024 11:44 AM [facility] ANION GAP 9 5 - 18 05/20/2024 11:44 AM [facility] GLUCOSE 120(H) 70 - 99 mg/dL 05/20/2024 11:44 AM [facility] CALCIUM 9.2 8.8 - 10.2 mg/dL 05/20/2024 11:44 AM [facility] BUN 27(H) 8 - 23 mg/dL 05/20/2024 11:44 AM T [facility] CREATININE 1.15 0.70 - 1.20 mg/dL 05/20/2024 11:44 AM T [facility] BUN/CREAT RATIO 23(H) 10 - 20 11:44 AM T [facility] eGFR 67(L) >90 mL/min/1.7 3m2 05/20/2024 11:44 AM [facility] Comment:As of 2021, eG FR is calculated by the CKD-EPI creatinine equation without race adjustment. ??eGFR can be influenced by muscle mass, exercise, and diet. ??The reported eGFR is an estimation only and is only applicable if the renal function is stable. Blood BLOOD SPECIMEN / Unknown Venipuncture / Unknown 05/20/2024 11:09 AM CDT 05/20/2024 11:10 AM CDT Destin Johnston MD CHEMISTRY [facility] [address] [place] [phone] * EP CARDIOVERSION (05/14/2024 9:46 AM CDT) Anatomical Region Laterality Modality X-Ray Angiograph y Narrative 05/14/2024 9:46 AM CDT Seamus Cole MD ? 05/17/2024 ??7:41 AM [facility] Cardiac Electrophysiology Procedure Note DOS: 05/14/2024 Brief History: ??Mr. Centeno is a pleasant 73 year old with history of atrial arrhythmias who now presents to OP NPO since midnight for direct current cardioversion. ??Rivaroxaban 20 mg daily with evening meal with no missed doses in the past 21 days. Procedure Description: ??Time out was called. ??Brief general anesthesia by anesthesia service. ??Cardioversion patches were placed in an anterior/posterior position. ??One 250 joules synchronized shock delivered with caodaism of an AV paced rhythm. ?? Complications: ??No acute complications. ?? Plan: ??Mr. Centeno is now recovering from sedation and would anticipate discharge home later today. Dr. Cole was readily available to provide assistance and direction throughout the time services were performed Esther aMcdonald NP ?? [facility] Cardiac Electrophysiology Services Seamus Cole MD Cardiac Arrhythmia Section [facility] Seamus Cole MD CV IMAGING * EKG (05/14/2024 9:44 AM CDT) Only the most recent of12 resultswithin the time period is included. Interpretation Normal sinus rhythm with sinus arrhythmia [...] NOW QTc 480 ms BEYOND NOW P Mccracken 75 degrees BEYOND NOW R Mccracken -24 degrees BEYOND NOW T Mccracken 60 degrees BEYOND NOW 05/14/2024 9:44 AM CDT 05/14/2024 2:24 PM CDT Narrative BEYOND NOW - 05/14/2024 2:24 PM CDT Test Indication: POST Jacqueline Morelos NP EKG ORD BEYOND NOW [place], [place] * POTASSIUM,ISTAT (05/14/2024 8:18 AM CDT) Only the most recent of5 resultswithin the time period is included. POTASSIUM, POCT 3.7 3.5 - 5.0 mmol/L 05/14/2024 6:58 PM CDT [facility] Blood BLOOD SPECIMEN / Unknown 05/14/2024 8:18 AM CDT 05/14/2024 6:58 PM CDT Seamus Cole MD CHEMISTRY Performing Organization Address [facility] Co de Phone Number [facility] [address] [address], [place] * SCAN-CARDIAC STRIP (05/14/2024 12:00 AM CDT) Narrative 05/14/2024 12:00 AM CDT Ordered by an unspecified provider. Other Clinical Staff OTHER * MAGNESIUM (05/13/2024 8:42 AM CDT) MAGNESIUM 1.9 1.6 - 2.4 mg/dL 05/14/2024 9:14 AM CDT [facility] Blood BLOOD SPECIMEN / Unknown Venipuncture / Unknown 05/13/2024 8:42 AM CDT 05/13/2024 8:42 AM CDT Esther Macdonald NP CHEMISTRY Performing Organization Address [facility] Co de Phone Number [facility] [address] [place] [address], [place] * SCAN-CARDIAC STRIP (05/11/2024 1:28 PM CDT) Scanner OTHER * (ABNORMAL) ACTIVATED CLOTTING TIME [id number] ACT (05/11/2024 11:38 AM CDT) Only the most recent of6 resultswithin the time period is included. ACTIVATED CLOTTING TIME, POCT 174(H) 74 - 125 sec 05/11/2024 11:52 AM CDT [facility] Blood BLOOD SPECIMEN / Unknown 05/11/2024 11:38 AM CDT 05/11/2024 11:52 AM CDT Maqruis Santana MD HEMATOLOGY Performing Organization Address [facility] Co de Phone Number [facility] [address] [place] [phone], [place] * EP STUDY /ABLATION (05/11/2024 8:13 AM CDT) Anatomical Region Laterality Modality X-Ray Angiograph y, X-Ray Angiography 05/11/2024 8:13 AM CDT Narrative Transcriptions Marquis Santana MD - 05/11/2024 5:20 PM CDT [facility] at [facility] Electrophysiology Procedure Report Name: RAIN CENTENO Event Date: 05/11/2024 Excellian ID #: [id number] Date: 1950 Gender: Male Age: 73 [facility] [place] [facility] #: [id number] Procedure Performed By: MARQUIS SANTANA [facility] Referring Physician: Summary / Conclusions 1. Complex [...] ? Same as Pre-operative diagnosis Consent & Banning Protocol Banning protocol was followed. TIME OUT conducted just [...] micropuncturetechnique, two sheaths were introduced (one 8 Iraqi and one 7 Iraqi)into the right femoral vein, one 9 Iraqi sheath was introduced into theleft femoral vein. [...] the ACT. The patient was transported to [facility] in stable condition for further monitoring. Procedure [...] Intervals Study State Underlying Rhythm Cycle Length MD PA AH HV QRS Mccracken QRSMorphology Baseline Atrial Fibrillation [phone] Post Ablation [...] See Anesthesia Note Total Flouro Time: 4.5 UNIT TENDER Total Flouro Dose: 7 mGy Transseptal Mean LA Pressure: 20 mmHg Staff Name Role Marquis Santana Information Consultant Mary Juarez RN Nurse Will Dumont CVT Monitor Elayne Cano CVT Scrub Mo Clancy EPClinton Manager Animal Medications Ordered and Administered Start Time Stop Time Medication Dose Units Route Ordered By Given By 08:15 0.25% Bupivicaine 10 mL Subcut MD Marquis Melton MD 08:16 1% Lidocaine Hydrochloride 10 mL Subcut MD Marquis Melton MD 08:19 0.25% Bupivicaine 5 mL Subcut MD Marquis Melton MD 08:19 1% Lidocaine Hydrochloride 5 mL Subcut MD Marquis Melton MD 08:25 Heparin [id number] Units IV MD Mary Melton RN 08:37 Heparin 2000 Units IV MD Mary Melton RN 09:23 Heparin 6000 Units IV MD Mary Melton RN 09:51 Heparin 3000 Units IV MD Mary Melton RN 10:25 Heparin 1000 Units IV MD Mary Melton RN 10:32 Protamine 50 Mg IV MD Mary Melton RN The anesthesia service monitored the patient?s conscious sedation duringthe procedure. The medications listed above were verbally ordered by me and read back tome as documented above. Refer to the hemodynamic procedure log report for additional casedetails. electronically signed on 05/11/2024 5:20:28 PM with status of Final Marquis Santana MD Information Consultant [facility] [address] [place] [address] (p) [phone](f) Marquis Santana MD CV IMAGING * HCHG [...] Adequate, No estimate 05/11/2024 7:24 AM CDT [facility] Blood BLOOD SPECIMEN / Unknown Venipuncture / Unknown 05/11/2024 6:13 AM CDT 05/11/2024 6:22 AM CDT Marquis Santana MD HEMATOLOGY [facility] [address] [place] [address], * (ABNORMAL) CBC with Platelet no Diff (05/11/2024 6:13 AM CDT) Only the most recent of6 resultswithin the time period is included. Pathologist [facility] WHITE BLOOD COUNT 8.5 4.5 - 11.0 thou/cu mm 05/11/2024 7:24 AM CDT [facility] RED BLOOD COUNT 4.01(L) 4.30 - 5.90 mil/cu mm 05/11/2024 7:24 AM CDT [facility] HEMOGLOBIN 11.5(L) 13.5 - 17.5 g/dL 05/11/2024 7:24 AM T [facility] HEMATOCRIT 37.5 37.0 - 53.0 % 05/11/2024 7:24 AM T [facility] MCV 94 80 - 100 fL 05/11/2024 7:24 AM T [facility] MCH 28.7 26.0 - 34.0 pg 05/11/2024 7:24 AM T [facility] MCHC 30.7(L) 32.0 - 36.0 g/dL 05/11/2024 7:24 AM [facility] RDW 15.6(H) 11.5 - 15.5 % 05/11/2024 7:24 AM T [facility] PLATELET COUNT 05/11/2024 7:24 AM [facility] Comment: Platelet clumped, unable to determine This is a corrected result. Previously reported as 108 thou/cu mm with reference range 140-440 thou/cu mm on 05/11/2024 at 0723 CDT MPV 05/11/2024 7:24 AM T [facility] Comment: Unable to determine This is a corrected result. Previously reported as 11.6 fL with reference range 6.5-11.0 fL on 05/11/2024 at 0723 CDT NRBC 0.0 % 05/11/2024 7:24 AM T [facility] ABS NRBC 0.0 thou /cu mm 05/11/2024 7:24 AM [facility] Blood BLOOD SPECIMEN / Unknown Venipuncture / Unknown 05/11/2024 6:13 AM CDT 05/11/2024 6:22 AM CDT Marquis Santana MD HEMATOLOGY Performing Organization Address City/[facility] Co de Phone Number [facility] [address] [place] [phone], * EXTRA TUBE GOLD/SST (05/11/2024 6:10 AM CDT) Blood BLOOD SPECIMEN / Unknown Extra Tube / Unknown 05/11/2024 6:10 AM CDT 05/11/2024 6:23 AM CDT Marquis Santana MD LABORATORY Performing Organization Address [facility] Co de Phone Number [facility] [address] [place] [phone], [place] * SCAN-CARDIAC STRIP (05/11/2024 12:00 AM CDT) [...] MD DEVICE DATA Medtronic Evera MRI XT [id number] SN: [id number] Implant Date 08/03/2019 LEAD DATA Atrial Lead: Medtronic 5076 - 52 MRI SN: [id number] Implant Date 08/03/2019 RV Lead: Medtronic 6935M - 62 MRI SN: [id number] Implant Date 08/03/2019 Tachy therapy hx: none 01/2023 Presence of a glassed feedthrough creates increased risk of unexpected HV arching within the header during therapy delivery. All HV pathways have been programmed B>AX. Hx: ??DCCV 04/30/24 DCCV ??04/19/24 Location of evaluation: [facility] P/R 18 post Cardioversion Reason for evaluation: [...] past two weeks from his device: per embedded software programmer reason for alert was that it was unable to send a transmission. ??Patient and family confirm that bedside monitor is plugged in. ??Provided family with [employer] number in case this happens again. Follow up: as previously scheduled [facility] remote on 06/25/24 prior to seeing Rosemarie Senior NP in [place] Routine follow up: Every 3 - 4 months via [facility] remote with annual [facility] or clinic with Dr. Santana each February. Susana Joyner, RN Nurse Clinician II [facility] Pacemaker/ICD Clinic [phone] Marquis Santana MD CARDIAC SERVICES ORD * EP CARDIOVERSION (04/30/2024 12:06 PM CDT) Anatomical Region Laterality Modality X-Ray Angiograph y Narrative 04/30/2024 12:06 PM CDT Nora Lara NP ? 04/30/2024 12:21 PM [facility] Cardiac Electrophysiology Procedure Note DOS: 04/30/2024 Brief [...] ??One 200 joules synchronized shock delivered with caodaism of sinus rhythm. ?? Complications: ??No acute complications. ?? Plan: ?? Rain Centeno is now recovering from sedation and would anticipate discharge home later today. Dr. Juarez was readily available to provide assistance and direction throughout the time services were performed Nora aLra NP [facility] Cardiac Electrophysiology Marquis Santana MD CV IMAGING * SCAN-CARDIAC STRIP (04/30/2024 12:00 AM CDT) Narrative 04/30/2024 12:00 AM CDT Ordered by an unspecified provider. Other Clinical Staff OTHER * XR HIP 2 OR 3 VIEWS W PELVIS LEFT (04/27/2024 10:24 AM CDT) Only the most recent of5 [...] This radiology exam was performed at the [facility] Orthopedic Radiology Department in [place] and interpreted by Riaz Peterson MD. HISTORY: [...] - 4.20 uIU/mL 04/22/2024 2:25 PM CDT [facility] Blood BLOOD SPECIMEN / Unknown Venipuncture / Unknown 04/22/2024 1:29 PM CDT 04/22/2024 1:29 PM CDT Narrative [facility] - 04/22/2024 2:25 PM CDT In Adults, TSH values between 5.00 and 10.00 uIU/ml do not necessarily indicate the presence of Hypothyroidism. Correlation with clinical findings such as presence of goiter and/or Thyroperoxidase (TPO) Antibody may be helpful. For more information please refer to YU 2004; 291: 228-238. Marquis Santana MD CHEMISTRY [facility] [address] [place] [phone] * SCAN-CARDIAC STRIP (04/19/2024 12:00 AM CDT) Narrative 04/19/2024 12:00 AM CDT Ordered by an unspecified provider. Other Clinical Staff OTHER * EP CARDIOVERSION (04/08/2024 2:44 PM CDT) Anatomical Region Laterality Modality X-Ray Angiograph y Narrative 04/08/2024 2:44 PM CDT Seamus Cole MD ? 04/08/2024 ??4:11 PM [facility] Cardiac Electrophysiology Procedure Note DOS: 04/08/2024 Brief [...] time services were performed David Ugarte NP [facility] Cardiac Electrophysiology Seamus Cole MD Cardiac Arrhythmia Section [facility] Marquis Santana MD CV IMAGING * SCAN-CARDIAC [...] @ Mar ??2 2023 ??3:21PM (Electronically Signed) [email or web address] Narrative 03/30/2024 3:21 PM CDT For Patients: [...] @ Mar 30 2024 3:21PM (Electronically Signed) [email or web address] Riaz Peterson MD GENERAL IMAGING * SCAN-CARDIAC STRIP (03/19/2024 9:21 AM CDT) Scanner OTHER * (ABNORMAL) HEPATIC FUNCTION PANEL (03/19/2024 4:50 AM CDT) Only the most recent of4 resultswithin the time period is included. ALBUMIN 3.3(L) 4.0 - 4.9 g/dL 03/19/2024 5:44 AM CDT [facility] PROTEIN,TOTAL 6.1 6.0 - 8.0 g/dL 03/19/2024 5:44 AM CDT [facility] BILIRUBIN,TOTAL 0.5 0.0 - 1.2 mg/dL 03/19/2024 5:44 AM CDT [facility] BILIRUBIN,DIRECT 0.2 0.0 - 0.3 mg/dL 03/19/2024 5:44 AM CDT [facility] BILIRUBIN,INDIRE CT 0.3 0.2 - 0.8 mg/dL 03/19/2024 5:44 AM CDT [facility] ALK PHOSPHATASE 122 40 - 129 IU/L 03/19/2024 5:44 AM CDT [facility] ALT (SGPT) 37 10 - 50 IU/L 03/19/2024 5:44 AM CDT [facility] AST (SGOT) 56(H) 10 - 50 IU/L 03/19/2024 5:44 AM CDT [facility] Blood BLOOD SPECIMEN / Unknown Venipuncture / Unknown 03/19/2024 4:50 AM CDT 03/19/2024 5:14 AM CDT Varghese Mckenna MD CHEMISTRY Performing Organization Address City/[facility]/ZIP Co de Phone Number [facility] [address] [place] [address], [place] * SCAN-CARDIAC STRIP (03/19/2024 12:01 AM CDT) Scanner OTHER * (ABNORMAL) GLUCOSE METER (03/18/2024 8:36 PM CDT) Only the most recent of13 resultswithin the time period is included. GLUCOSE METER 172(H) 65 - 100 mg/dL 03/18/2024 11:27 PM CDT [facility] Blood BLOOD SPECIMEN / Unknown 03/18/2024 8:36 PM CDT 03/18/2024 11:27 PM CDT Lee Carrillo MD CHEMISTRY Performing Organization Address City/[facility]/ZIP Co de Phone Number [facility] [address] [place] [phone], [place] * US ARTERIAL LOWER EXTREMITY LEFT [...] - 4.20 uIU/mL 03/17/2024 10:19 PM CDT [facility] Blood BLOOD SPECIMEN / Unknown Venipuncture / Unknown 03/17/2024 4:18 AM CDT 03/17/2024 4:35 AM CDT Narrative [facility] - 03/17/2024 10:19 PM CDT In Adults, TSH values between 5.00 and 10.00 uIU/ml do not necessarily indicate the presence of Hypothyroidism. Correlation with clinical findings such as presence of goiter and/or Thyroperoxidase (TPO) Antibody may be helpful. For more information please refer to YU 2004; 291: 228-238. Shane Ramires DO CHEMISTRY [facility] [address] [place] [address], * T4,FREE (03/17/2024 4:18 AM CDT) T4,FREE 1.37 0.93 - 1.70 ng/dL 03/17/2024 10:51 PM CDT [facility] Blood BLOOD SPECIMEN / Unknown Venipuncture / Unknown 03/17/2024 4:18 AM CDT 03/17/2024 4:35 AM CDT Shane Ramires DO CHEMISTRY Performing Organization Address [facility] Co de Phone Number [facility] [address] [phone], [place] * CK TOTAL (03/17/2024 4:18 AM CDT) CK,TOTAL 133 39 - 308 IU/L 03/17/2024 9:43 PM CDT [facility] Blood BLOOD SPECIMEN / Unknown Venipuncture / Unknown 03/17/2024 4:18 AM CDT 03/17/2024 4:35 AM CDT Shane Ramires CHEMISTRY Performing Organization Address [facility] de Phone Number [facility] [address] [place] [address], [place] * CALCIUM IONIZED HOSPITAL DRAW ONLY (03/17/2024 4:18 AM CDT) Only the most recent of3 resultswithin the time period is included. Pathologist [facility] CALCIUM,IONIZE D 1.18 1.15 - 1.27 mmol/L 03/17/2024 4:41 AM CDT [facility] Blood BLOOD SPECIMEN / Unknown Venipuncture / Unknown 03/17/2024 4:18 AM CDT 03/17/2024 4:35 AM CDT Estrella Flores MD CHEMISTRY Performing Organization Address [facility] Co de Phone Number [facility] [address] [phone], [place] * SCAN-CARDIAC STRIP (03/16/2024 7:21 PM CDT) Scanner OTHER * (ABNORMAL) URINALYSIS MICROSCOPIC (03/16/2024 4:32 PM CDT) Pathologist [facility] RBC 0-2 0-2, None Seen /HPF 03/16/2024 4:49 PM CDT [facility] WBC 0-2 0-2, 3-5, None Seen /HPF 03/16/2024 4:49 PM CDT [facility] BACTERIA None Seen None Seen, Rare, Few Bacteria/ HPF 03/16/2024 4:49 PM CDT [facility] EPITHELIAL CELLS None Seen None Seen, Few Epi/HPF 03/16/2024 4:49 PM CDT [facility] HYALINE CASTS 11-25(A) 0-2, 3-5 /LPF 03/16/2024 4:49 PM CDT [facility] Urine URINE SPECIMEN / Unknown Non-Blood / Unknown 03/16/2024 4:32 PM CDT 03/16/2024 4:40 PM CDT Lucio ARMAS URINE [facility] [address] [place] [phone], [place] * (ABNORMAL) UA W/ SEDIMENT EXAM REFLEXED PER CRITERIA (03/16/2024 4:32 PM CDT) COLOR Yellow Yellow Color 03/16/2024 4:49 PM CDT [facility] CLARITY Clear Clear Clarity 03/16/2024 4:49 PM CDT [facility] SPECIFIC GRAVITY,URINE 1.015 1.010, 1.015, 1.020, 1.025 03/16/2024 4:49 PM CDT [facility] PH,URINE 5.0(A) 6.0, 7.0, 8.0, 5.5, 6.5, 7.5, 8.5 03/16/2024 4:49 PM CDT [facility] UROBILINOGEN, QUALITATIVE Normal Normal EU/dl 03/16/2024 4:49 PM CDT [facility] PROTEIN, URINE Trace(A) Negative mg/dL 03/16/2024 4:49 PM CDT [facility] GLUCOSE, URINE >=1000(A) Negative mg/dL 03/16/2024 4:49 PM CDT [facility] KETONES,URINE Negative Negative mg/dL 03/16/2024 4:49 PM CDT [facility] BILIRUBIN,URI NE Negative Negative 03/16/2024 4:49 PM CDT [facility] OCCULT BLOOD,URINE Negative Negative 03/16/2024 4:49 PM CDT [facility] NITRITE Negative Negative 03/16/2024 4:49 PM CDT [facility] LEUKOCYTE ESTERASE Negative Negative 03/16/2024 4:49 PM CDT [facility] Urine URINE SPECIMEN / Unknown Non-Blood / Unknown 03/16/2024 4:32 PM CDT 03/16/2024 4:40 PM CDT Lucio ARMAS URINE [facility] [address] [place] [address], * PROCALCITONIN (03/16/2024 4:08 PM CDT) PROCALCITONIN 0.04 ng/ml 03/16/2024 4:59 PM CDT [facility] Blood BLOOD SPECIMEN / Unknown Butterfly / Unknown 03/16/2024 4:08 PM CDT 03/16/2024 4:18 PM CDT Narrative [facility] - 03/16/2024 4:59 PM CDT [...] ng/mL are obtained. Lucio ARMAS SEND OUTS [facility] [address] [place] [address], * BLOOD CULTURE (03/16/2024 4:08 PM CDT) Only the most recent of2 resultswithin the time period is included. CULTURE No Growth. 03/20/2024 7:10 PM CDT [facility] Blood BLOOD SPECIMEN / Unknown Butterfly / Unknown 03/16/2024 4:08 PM CDT 03/16/2024 4:18 PM CDT Narrative [facility] - 03/20/2024 7:10 PM CDT Low volume blood culture received; possible false negative culture. Lucio ARMAS MICROBIOLOGY [facility] [address] [place] [phone], * ICD ANALYSIS DUAL WITHOUT REPROGRAM (03/16/2024 3:32 PM CDT) Narrative Marquis Santana MD - 03/16/2024 3:32 PM CDT Cyndi Arnold RN ? 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 All HV pathways have been programmed B>AX. Location of evaluation: [facility] Reason for evaluation: Provider Request MEASUREMENTS Atrial [...] charge, 35 J x 6 ? NID: FINAL BRADYCARDIA PARAMETERS Mode: AAI <=> DDD [...] 4 months via [facility] remote with annual Hitchcock or clinic with Dr. Santana each February. Cyndi Arnold, RN Nurse Clinician II [facility] Pacemaker/ICD Clinic Marquis Santana MD CARDIAC SERVICES ORD * EXTRA TUBE LIGHT GREEN (03/16/2024 1:23 PM CDT) Blood BLOOD SPECIMEN / Unknown Non-Lab Venipuncture / Unknown 03/16/2024 1:23 PM CDT 03/16/2024 1:33 PM CDT Estrella Flores MD LABORATORY Performing Organization Address City/[facility]/ZIP Co de Phone Number [facility] [address] [place] [phone], [place] * (ABNORMAL) BLOOD GAS,VENOUS (03/16/2024 1:23 PM CDT) PH, VENOUS 7.31(L) 7.32 - 7.43 03/16/2024 1:36 PM CDT [facility] PCO2, VENOUS 68(H) 41 - 51 mmHg 03/16/2024 1:36 PM CDT [facility] PO2, VENOUS 63(H) 35 - 40 mmHg 03/16/2024 1:36 PM CDT [facility] HCO3,VENOUS 34(H) 22 - 29 mmol/L 03/16/2024 1:36 PM CDT [facility] BASE EXCESS, VENOUS, POCT 5.6(H) -2.0 - 3.0 03/16/2024 1:36 PM CDT [facility] O2 SATURATION, VENOUS 93(H) 70 - 75 % 03/16/2024 1:36 PM CDT [facility] PATIENT TEMPERATURE 37.0 Degrees C 03/16/2024 1:36 PM CDT [facility] Blood VENOUS BLOOD SPECIMEN / Unknown Butterfly / Unknown 03/16/2024 1:23 PM CDT 03/16/2024 1:31 PM CDT Estrella Flores MD CHEMISTRY Performing Organization Address City/[facility]/ZIP Co de Phone Number [facility] [address] [place] [phone], [place] * LACTATE VENOUS (03/16/2024 1:22 PM CDT) Only the most recent of3 resultswithin the time period is included. LACTATE,VENOUS 0.8 0.5 - 2.0 mmol/L 03/16/2024 2:38 PM CDT [facility] Blood BLOOD SPECIMEN / Unknown Butterfly / Unknown 03/16/2024 1:22 PM CDT 03/16/2024 1:31 PM CDT Lucio ARMAS CHEMISTRY Performing Organization Address [facility] Co de Phone Number [facility] [address] [place] [phone], [place] * (ABNORMAL) HEMOGLOBIN (03/16/2024 1:22 PM CDT) Only the most recent of2 resultswithin the time period is included. Pathologist [facility] HEMOGLOBIN 11.1(L) 13.5 - 17.5 g/dL 03/16/2024 1:39 PM CDT [facility] MCV 101(H) 80 - 100 fL 03/16/2024 1:39 PM CDT [facility] Blood BLOOD SPECIMEN / Unknown Butterfly / Unknown 03/16/2024 1:22 PM CDT 03/16/2024 1:31 PM CDT Lucio ARMAS HEMATOLOGY Performing Organization Address [facility] de Phone Number [facility] [address] [place] [address], [place] * (ABNORMAL) FACTOR 10 CHROMOGENIC (03/16/2024 1:22 PM CDT) [facility] FACTOR 10 CHROMOGENIC 41(L) 65 - 130 % 03/16/2024 1:46 PM CDT [facility] Blood BLOOD SPECIMEN / Unknown Butterfly / Unknown 03/16/2024 1:22 PM CDT 03/16/2024 1:31 PM CDT Narrative [facility] - 03/16/2024 1:46 PM CDT Therapeutic Range 20-40% Lucio ARMAS SEND OUTS Performing Organization Address [facility] Co de Phone Number [facility] [address] [place] [phone], [place] * CORTISOL TOTAL (03/16/2024 10:29 AM CDT) Pathologist [facility] CORTISOL,TOTAL 15.0 ug/dL 03/16/2024 1:29 PM CDT [facility] Blood BLOOD SPECIMEN / Unknown Non-Lab Venipuncture / Unknown 03/16/2024 10:29 AM CDT 03/16/2024 10:35 AM CDT Narrative [facility] - 03/16/2024 1:29 PM CDT Cortisol ?Morning Hours ?6:00 ??AM - 10:00 AM ?(4.8-19.5 ug/dL) Cortisol ?Afternoon Hours ??4:00 ??PM - ??8:00 PM ?(2.5-11.9 ug/dL) ? Biotin supplements may cause clinically significant interference for this test assay. ??If interference is suspected, it is strongly recommended that biotin is discontinued for at least one week prior to retesting. Estrella Flores MD CHEMISTRY [facility] [address] [place] [address], * ECHO TTE LIMITED W CONTRAST W COLOR W DOPPLER (03/16/2024 10:23 AM CDT) Pathologist [facility] AORTIC VALVE MEAN PG 7 mmHg EJECTION FRACTION 50 - 55% Anatomical Region Laterality Modality Ultrasound 03/16/2024 9:42 AM CDT Narrative 03/16/2024 11:06 AM CDT ECHOCARDIOGRAM RAIN CENTENO ? Accession#: ?? [id number] : ?1950 73 years Study Date: ?? 03/16/2024 9:42:01 AM Gender: M ?BP: ? 84/55 mmHg Height: 137.00 cm ?BSA: ?2.42 m? ? ? Weight: 200.00 kg ?Tech: ? OLL ? Referring MD: ESTRELLA FLORES Site: ? [facility] Reading Location: ANW IP Patient [...] documentation: 2 ml diluted Definity, lot #[id number], [facility]# [id number] was administered peripherally to enhance visualization of all left ventricular segments. . This study was interpreted by an [facility] accredited facility. ??Final ?? Procedure Note Leonel Montanez MD - 03/16/2024 ECHOCARDIOGRAM RANI CENTENO : 1950 73 years Study Date: 03/16/2024 9:42:01 AM Gender: M BP: 84/55 mmHg Height: 137.00 cm BSA: 2.42 m? ? ? Weight: 200.00 kg Tech: ANGIE Referring MD: ESTRELLA FLORES Site: [facility] Reading Location: [facility] Patient Location: Inpatient. Procedure: Limited Echo w/ [...] documentation: 2 ml diluted Definity, lot #[id number], [facility]#[id number] was administered peripherally to enhance visualization of allleft ventricular segments. . This study was interpreted by an [facility] accredited facility. Final Estrella Flores [...] 6-15 ng/L ng/L 03/15/2024 8:14 PM CDT [facility] Blood BLOOD SPECIMEN / Unknown Venipuncture / Unknown 03/15/2024 7:54 PM CDT 03/15/2024 7:56 PM CDT Janina Valero MD CHEMISTRY [facility] [address] [place] [address] * CT CERVICAL SPINE WO (03/15/2024 2:10 [...] 1 VIEW PORTABLE (03/15/2024 1:08 PM CDT) Anatomical Region Laterality Modality HEART, [...] 6-15 ng/L ng/L 03/15/2024 8:01 PM CDT [facility] Blood BLOOD SPECIMEN / Unknown Venipuncture / Unknown 03/15/2024 12:48 PM CDT 03/15/2024 12:57 PM CDT Narrative [facility] - 03/15/2024 8:01 PM [...] department patient population. Janina Valero MD CHEMISTRY [facility] [address] [place] [address] * Type and Screen (03/15/2024 12:48 PM CDT) ABORH O Rh Positive 03/15/2024 1:29 PM CDT [facility] BLOOD BANK ANTIBODY SCREEN Negative Negative 03/15/2024 1:29 PM CDT [facility] BLOOD BANK SPECIMEN EXPIRATION DATE/TIME 03/18/24 23:59 03/15/2024 1:29 PM CDT [facility] BLOOD BANK Blood BLOOD SPECIMEN / Unknown Venipuncture / Unknown 03/15/2024 12:48 PM CDT 03/15/2024 12:57 PM CDT Janina Valero MD BLOOD BANK Performing Organization Address [facility] Co de Phone Number [facility] BLOOD BANK [address] [place] [address] * (ABNORMAL) PROTIME- INR (03/15/2024 12:48 PM CDT) INR 2.4(H) <1.3 03/15/2024 1:09 PM CDT [facility] PROTIME 26.0(H) 10.3 - 12.3 sec 03/15/2024 1:09 PM CDT [facility] Blood BLOOD SPECIMEN / Unknown Venipuncture / Unknown 03/15/2024 12:48 PM CDT 03/15/2024 12:57 PM CDT Narrative [facility] - 03/15/2024 1:09 PM [...] Janina Valero MD HEMATOLOGY Performing Organization Address City/[facility] Co de Phone Number [facility] [address] [place] [address] * (ABNORMAL) LIPID PANEL (01/07/2018 4:35 PM CDT) CHOLESTEROL,TOTAL 174 100 - 199 mg/dL 01/07/2018 6:28 PM CDT [facility] TRIGLYCERIDES 194(H) <150 mg/dL 01/07/2018 6:28 PM CDT [facility] HDL CHOLESTEROL 64 >40 mg/dL 8 6:28 PM CDT [facility] NON-HDL CHOLESTEROL 110 <145 mg/dl 01/07/2018 6:28 PM CDT [facility] CHOL/HDL RATIO 2.72 <4.50 01/07/2018 6:28 PM CDT [facility] LDL CHOLESTEROL 71 <=130 mg/dL 01/07/2018 6:28 PM CDT [facility] PROVIDER ORDERED STATUS RANDOM 01/07/2018 6:28 PM CDT [facility] Blood BLOOD SPECIMEN / Unknown Venipuncture / Unknown 01/07/2018 4:35 PM CDT 01/07/2018 4:39 PM CDT Aba Boo MD CHEMISTRY [facility] [address] [place] [address] from Last 3 Months or Most Recently [...] Comments Code Status Discussion: Other Care Teams Auto Parts Counter Person Relationship Specialty Start Date End Date Aba Boo MD [address] [place] [address] PCP - General Family Practice 11/18/19 Destin Johnston MD [address] [place] [address] Cardiology - CHF Cardiovascular Disease 04/14/20 Nurses, Advanced Heart Failure [address] [place] [address] Advanced Heart Failure/Transplant Card 04/14/20
--- OUTSIDE RECORDS SUMMARY | 2024-05-26 13:08 | XMS_ITS | Encounter Summary ---
Author Organization [facility] Address [address] [address] Phone Care Team Providers Care Oil Dispenser Name Role Phone Aba Boo MD Primary Care Provider Reason for Visit * Reason Comments Pacemaker Problem Encounter Details Date Type Department Care Team (Late st Contact Info) Description 04/02/2024 3:26 PM CDT - 04/02/2024 4:45 PM CDT Emergency [facility] Emergency Department [address] [place] [address] [id number] Lee Frye, DO [address] [place] [address] [phone] Pacemaker complications, initial encounter (Primary Dx) Discharge [...] Code Departure Means Destination Home and/or Self Longterm documented in this encounter ED Notes * [...] certainly considered. Pacemaker was interrogated. Per pacemaker service support representative the pacemaker is working appropriately. The [...] Disposition ED Disposition Discharge Condition Stable Comment [facility] thanks you for allowing us to assist you with your healthcare needs. This document contains patient education materials and information regarding your injury/illness. *If you need copies of your x-rays for a f ollow up appointment please call [phone] to arrangefor pickler helper. If you had an IV in place [...] Primary documented in this encounter Care Teams Oil Dispenser Relationship Specialty Start Date End Date Aba Boo MD [facility] [address] [place] [address] PCP - General Family Medicine 04/02/24 documented as of this encounter
--- OUTSIDE RECORDS SUMMARY | 2024-05-26 13:08 | XMS_ITS | Encounter Summary ---
Author Organization [facility] Address [address], [place] [address] Care Team Providers Care Perfumer Name Role Phone Clinician, Not Found MD Primary Care Provider Un available Reason for Visit * Reason Comments Questions Encounter Details Date Type Department Care Team (Late st Contact Info) Description 12/30/2023 Telephone [facility] [address] [place], [place] [phone] Zakia Carrillo, LOOSELEAF BINDER COVERER, DROP MACHINE OPERATOR [address] [place] [address] Questions Social History Tobacco Use Types Packs/Day [...] [place] * Erendira Prince - 12/30/2023 3:02 PM [...] can we send you a message in [employer]? No [Transportation Logistics Internship/Global Consumer Sector Vice President: Relay to patient; We make every effort to get back to you sameday, however it may take 1-2 business days depending on the nature of the communication.] documented in this encounter Plan of Treatment Not on file documented as of this encounter Visit Diagnoses Not on filedocumented in this encounter Care Teams Perfumer Relationship Specialty Start Date End Date Clinician, Not Found, [place] [address] PCP - General 06/23/20 documented as of this encounter
--- OUTSIDE RECORDS SUMMARY | 2024-05-26 13:08 | XMS_ITS | Clinical Summary ---
Author Organization [facility] Address [address] [address] Care Team Providers Care Landing Gear Mechanic Name Role Phone Clinician, Not Found MD Primary Care Provider Un available Source Comments You are receiving this document as you are listed as the primary care provider,follow-up provider, or the patient has been referred to you for consultation.This is in compliance with the Medicare and[facility] EHR Incentive Program,which states Providers who transition their patient to another setting of careor provider of care or refers their patient to another provider of care shouldprovide summary care record for each transition of care or referral. [employer] Allergies No known active allergies Medications Medication [...] 020 Overview (06/15/2020): By Dr. Murrieta at [facility]. Ascending aorta dilation 06/15/2020 Overview (06/15/2020): -09/09/11: [...] this topic Medical Devices Implanted Type Area Loan Manager Device Identifier Shelf Expiration Date Model / Serial / Lot Mohan Bone Biomet R 1x40 - [id number] Implanted:Qty: 2 on 06/15/2020 by Sanjay Murrieta MD at [facility] DEVICE Right: [employer] 07/29/2024 [id number] / / [id number] Patella All Poly Ply 41mm - [id number] Implanted:Qty: 1 on 06/15/2020 by Sanjay Murrieta MD at [facility] DEVICE Right: [employer] 06/28/2026 [id number] / / [id number] Comp Str [address] 14x+30 - [id number] Implanted:Qty: 1 on 06/15/2020 by Sanjay Murrieta MD at [facility] DEVICE Right: [employer] 11/26/2029 [id number] / / [id number] Stem Tib 5deg Szh Rt - [id number] Implanted:Qty: 1 on 06/15/2020 by Sanjay Murrieta MD at [facility] DEVICE Right: [employer] 01/26/2029 [id number] / / [id number] Comp Fem Ps Ccr Ps Std Sz12 Rt - [id number] Implanted:Qty: 1 on 06/15/2020 by Sanjay Murrieta MD at [facility] DEVICE Right: [employer] 06/28/2029 [id number] / / [id number] Asf Ps Ve 10mm 1012 Gh Rt - [id number] Implanted:Qty: 1 on 06/15/2020 by Sanjay Murrieta MD at [facility] DEVICE Right: [employer] 04/28/2021 [id number] / / [id number] Advance Directives * Full Code (Latest Code Status on File) Date Activated Date Inactivated Comments 06/15/2020 2:08 PM 06/17/2020 2:45 PM Care Teams Landing Gear Mechanic Relationship Specialty Start Date End Date Clinician, Not Found, [place] [address] PCP - General 06/23/20
== END 2024-05-26 13:07 | disposition home or self-care (01) ==
LOC: WOUND 13:06
PROVIDERS: PCP Family Medicine; Visit Provider Surgery
DX: I87.332 Chronic venous hypertension (idiopathic) with ulcer and inflammation of left lower extremity (principal); I89.0 Lymphedema, not elsewhere classified; L97.822 Non-pressure chronic ulcer of other part of left lower leg with fat layer exposed
CPT/HCPCS: 97597

== ENCOUNTER 2024-06-02 12:50 | Outpatient (CLI) | payer MEDICARE, BC, SELFPAY ==
--- OUTSIDE RECORDS SUMMARY | 2024-06-02 12:52 | XMS_ITS | Encounter Summary ---
Author Organization [facility] Address [address] [address] Phone Care Team Providers Care Textile Artist Name Role Phone Aba Boo MD Primary [...] on filedocumented in this encounter Care Teams Textile Artist Relationship Specialty Start Date End Date Aba Boo MD [facility] & [address] [address] PCP - General Family Medicine 04/02/24 documented as of this encounter
--- OUTSIDE RECORDS SUMMARY | 2024-06-02 12:52 | XMS_ITS | Clinical Summary ---
Author Organization [facility] Address [address] [address] Phone Care Team Providers Care Coil Winding Supervisor Name Role Phone Aba Boo MD Primary Care Provider Allergies No known active allergies Encounters Date Type Department Care Team Description 04/02/2024 3:26 PM CDT - 04/02/2024 4:45 PM CDT Emergency [facility] Emergency Department [address] [place] [id number] Lee Frye, Pacemaker complications, initial encounter (Primary Dx) Discharge Disposition: Home and/or Self Care 04/02/2024 7:00 AM CDT Cardiac Device Remote [facility] [address] [place] [address] Ancillary, [facility] Pacer Remote Monitor Sinoatrial node dysfunction (HCC) [...] Order) (1 of 1 - PCV) 2015 COVID-19 Vaccine ( - 2022-2 4 season) 2024 Influenza Vaccine Seasonal (Standing Order) (#1) 2024 HPV Vaccine (Standing Order) Aged Out No longer eligible based on patient's age to complete this topic Hepatitis B Vaccine (Standin g Order) Aged Out No longer eligible b ased on patient's age to complete this topic Care Teams Coil Winding Supervisor Relationship Specialty Start Date End Date Aba Boo MD [facility] & [address] [phone] PCP - General Family Medicine 04/02/24
--- OUTSIDE RECORDS SUMMARY | 2024-06-02 12:52 | XMS_ITS | Encounter Summary ---
Author Organization [facility] Address [address] [address] Phone Care Team Providers Care Dry Wall Plasterer Name Role Phone Aba Boo MD Primary Care Provider [phone] Reason for Visit * Reason Comments Cardiac Device Check Encounter Details Date Type Department Care Team (Latest Contact Info) Description 04/02/2024 7:00 AM CDT Cardiac Device Remote [facility] [address] [place] [address] Ancillary, [facility] Pacer Remote Monitor Sinoatrial node [...] the original note were not included. 04/02/24 0722 Remote Impression and Plan Place of Service [place];[employer];In person Remote Monitoring;E.R.;ICD Final Impression Normal Remote Monitor with Events RVP > 40% NO Events/Comments In person care link from [employer]. Pt has been 100% AT/AF since 03/16/24 with ventricular rates 80-120s bpm for majority of time. Presenting egm supporting AT/AF VS 80-120 bpm. No ventricular events logged. Minimally MANGLE TENDER: 4.3%. Updated Dr. Frye via secure chat. Pt's device is beeping due to unsuccessful [employer] Alert transmission. Pt needs to follow up with [employer] technical support and device clinic they follow with. Follow Up Plan follow-up as scheduled Plan of Care Full report under Media/CV tab Anticoagulation (No updated med list) Battery 2.8 yrs Atrial Fib [place] % 100 RVP % 4.3 Heart Rate [...] call notification and can be viewed in [employer]. Presenting rhythm: Associated attestation - Sanjay Alvarez [...] situ documented in this encounter Care Teams Dry Wall Plasterer Relationship Specialty Start Date End Date Aba Boo MD [facility] & [address] [phone] PCP - General Family Medicine 04/02/24 documented as of this encounter
--- OUTSIDE RECORDS SUMMARY | 2024-06-02 12:52 | XMS_ITS | Encounter Summary ---
Author Organization [facility] Address [address] [address] Phone Care Team Providers Care Mushroom Press Operator Name Role Phone Aba Boo MD Primary Care Provider Reason for Visit * Reason Comments Pacemaker Problem Encounter Details Date Type Department Care Team (Late st Contact Info) Description 04/02/2024 3:26 PM CDT - 04/02/2024 4:45 PM CDT Emergency [facility] Emergency Department [address] [place] [address] [phone] Lee Frye, DO [address] [place] [address] [phone] Pacemaker complications, initial encounter (Primary Dx) Discharge [...] Code Departure Means Destination Home and/or Self Usp documented in this encounter ED Notes * [...] certainly considered. Pacemaker was interrogated. Per pacemaker signs and displays sales representative the pacemaker is working appropriately. [...] Disposition ED Disposition Discharge Condition Stable Comment [facility] thanks you for allowing us to assist you with your healthcare needs. This document contains patient education materials and information regarding your injury/illness. *If you need copies of your x-rays for a f ollow up appointment please call [phone] to arrangefor warehouse order picker. If you had an IV in [...] Primary documented in this encounter Care Teams Mushroom Press Operator Relationship Specialty Start Date End Date Aba Boo MD [facility] [address] [place] [address] PCP - General Family Medicine 04/02/24 documented as of this encounter
--- OUTSIDE RECORDS SUMMARY | 2024-06-02 12:53 | XMS_ITS | Encounter Summary ---
Author Organization [facility] Address [address], [place] [address] Care Team Providers Care Team Psychologist Name Role Phone Clinician, Not Found MD Primary Care Provider Un available Reason for Visit * Reason Comments Questions Encounter Details Date Type Department Care Team (Late st Contact Info) Description 12/30/2023 Telephone [facility] [address] [place], [place] [address] Zakia Carrillo, ACCESSORIES REPAIRER, UTILIZATION REVIEW SPECIALIST [address] [place] [address] Questions Social History Tobacco Use Types Packs/Day [...] [place] * Erendira Prince - 12/30/2023 3:02 PM [...] can we send you a message in [employer]? No [Tie Buyer/Door Hanger: Relay to patient; We make every effort to get back to you sameday, however it may take 1-2 business days depending on the nature of the communication.] documented in this encounter Plan of Treatment Not on file documented as of this encounter Visit Diagnoses Not on filedocumented in this encounter Care Teams Team Psychologist Relationship Specialty Start Date End Date Clinician, Not Found, [place] [address] PCP - General 06/23/20 documented as of this encounter
--- OUTSIDE RECORDS SUMMARY | 2024-06-02 12:53 | XMS_ITS | Clinical Summary ---
Author Organization [employer] [facility] s [facility] Address [place], [place] [address] Care Team Providers Care Ship Scraper Name Role Phone Aba Boo MD Primary Care Provider + Destin Johnston MD Unavailable [phone] Nurses, Advanced Heart Failure Unavailable + [...] type, unspecified whether angina present, unspecified whether [place] or transplanted heart Take 1 Tablet (10 mg) by mouth at bedtime. 90 Tablet 3 04/13/20 24 Active empagliflozin (Jardiance) 10 mg tabletIndications: Chronic systolic heart failure (HC) Take 1 Tablet (10 mg) by mouth once daily. HOLD until after cardioversion on 04/1904/16/20 Active tirzepatide, weight loss, (ZEPBOUND) 7.5 mg/0.5 mL pen Inject 7.5 mg subcutaneous once weekly. Saturdays Active amiodarone (CORDARONE) 200 mg tabletIndications: Atrial [...] Tuesday 04/17 prior to cardioversion 04/16/20 24 Discontinued(Ph armacist change per medication history (E-cancel not sent)) hydrocortisone 1 % creamIndications:A trial fibrillation, unspecified type (HC) Apply topically to affected area(s) 4 times daily if needed for Itching. 04/19/20 24 Discontinued(*P atient states no longer taking) amiodarone (CORDARONE) 200 mg tabletIndications: Atrial fibrillation, persistent (HC) Take 1 Tablet (200 mg) by mouth once daily. Take Amiodarone 400 mg (2 tabs) twice daily for 1 week; then 400 mg (2 tabs) for 1 month; then 200 mg (1 tab) once daily 90 Tablet 3 04/22/20 24 Discontinued torsemide (DEMADEX) 20 mg tabletIndications: Primary [...] mg) by mouth once daily. 05/14/20 24 Discontinued amiodarone (CORDARONE) 200 mg tabletIndications: Atrial fibrillation, persistent (HC) Take 2 Tablets (400 mg) by mouth two times daily. 05/21/2024: Reduce to 1 tablet (200 mg) by mouth twice daily. 06/18: Reduce to 1 tablet (200 mg) by mouth once daily. 05/14/20 24 Discontinued(*M edication adjustment) digoxin (LANOXIN) 125 mcg (0.125 mg) tabletIndications: Atrial fibrillation, unspecified type (HC) Take 1 Tablet (125 mcg) by mouth once daily. 30 Tablet 2 05/20/20 24 Discontinued(*I P Discontinued) Active Problems Problem Noted Date Diagnosed [...] and secondary concerned persons: Spouse Alexus Centeno [phone] Daughter Zuri [phone] Hypothyroidism 09/10/2011 Atrial fibrillation Overview: - 07/31/11: [...] Encounters Date Type Department Care Team Description 06/02/2024 9:45 AM CDT Office Visit [facility] [address] [facility] [address] [place] [address] Sanjay Lazaro MD Hand Pain/problem (Right wrist numbness/tingling) 06/02/2024 Travel 05/27/2024 9:04 AM CDT Anesthesia Event [facility] [address] [place] [address] Erendira Velez MD Riley, Benjamin William, PICK UP ATTENDANT 05/27/2024 7:15 AM CDT - 05/27/2024 10:24 AM CDT Hospital Encounter [facility] [address] [place] [address] Seamus Cole MD Atrial fibrillation, persistent (HC) Discharge Disposition: Home Self Care 05/27/2024 Travel 05/24/2024 8:30 AM CDT Office Visit [facility] [address] [facility] [address] [place] [address] Iva Johnston CNS Follow Up (CHF FOLLOWUP /POST ABLATION DONE ON 05/11... Post modified diuretic with CMP post ablation/LABS PRIOR IN [place]/I42.9 (ICD-10-CM) - Primary cardiomyopathy (HC)/I50.23 (ICD-10-CM) - Acute on chronic HFrEF (heart failure with reduced ejection fraction) (HC) /PT states feeling ok./Went into afib a couple days later going back on ) 05/24/2024 Telephone [facility] [place] [address] [facility] [address] [place] [address] Riaz Peterson MD Error-please disregard 05/24/2024 Travel 05/20/2024 12:00 PM CDT Orders Only [address] [phone] Lab, [facility] 05/20/2024 Telephone [facility] [address] [facility] [address] [place] [phone] Seamus Cole MD Atrial Fibrillation 05/20/2024 Travel 05/19/2024 Telephone [facility] [address] [facility] [address] [place] [phone] Destin Johnston MD Medication Management 05/19/2024 Telephone [facility] [address] [facility] [address] [place] [address] Marquis Santana MD Medication Management 05/19/2024 Telephone [facility] [address] [facility] [address] [place] [phone] Susana Joyner I, KELSEA Device Check 05/19/2024 Telephone [facility] [address] [address] Marquis Santana MD Device Check 05/19/2024 Telephone [facility] [address] [phone] Erendira Sotomayor, REGULATORY LAW SPECIALIST Weight 05/14/2024 9:37 AM CDT Anesthesia Event [facility] [address] [place] [address] Aba Valerio MD 05/14/2024 7:10 AM CDT - 05/14/2024 11:40 AM CDT Hospital Encounter [facility] [address] [place] [address] Seamus Cole MD Atrial fibrillation, persistent (HC) Discharge Disposition: Home Self Care 05/14/2024 Travel 05/13/2024 9:20 AM CDT Orders Only [facility] [address] [facility] [address] [place] [address] Lab 05/13/2024 Telephone [facility] [address] [phone] Martha Warner RN 05/13/2024 Telephone [facility] [address] [phone] Marquis Santana MD Results (LFT and TSH results on Amiodarone) 05/12/2024 Travel 05/11/2024 7:46 AM CDT Anesthesia Event [facility] [address] [place] [address] Alan Yao DO 05/11/2024 5:41 AM CDT - 05/11/2024 5:50 PM CDT Hospital Encounter [facility] [address] [place] [address] Marquis Santana MD Kroll, Sharon Marie, CRNA Primary cardiomyopathy (HC) (Primary Dx); Acute on chronic HFrEF (heart failure with reduced ejection fraction) (HC) Discharge Disposition: Home Self Care 05/11/2024 Travel 05/04/2024 Telephone [facility] [address] [phone] Marquis Santana MD Medication Management 05/04/2024 Telephone [facility] [address] [place] [address] Guadalupe Rosado RN Appointment 05/03/2024 Telephone [facility] [address] [phone] Marquis Santana MD Concerns (AFIB) 04/30/2024 12:03 PM CDT Anesthesia Event [facility] [address] [place] [address] Aba Valerio MD Wilson, Timothy Eric, PICK UP ATTENDANT 04/30/2024 10:08 AM CDT - 04/30/2024 3:03 PM CDT Hospital Encounter [facility] [address] [place] [address] Marquis Santana MD Discharge Disposition: Home Self Care 04/30/2024 Travel 04/27/2024 10:15 AM CDT Ancillary Procedure [address] [place] [address] 04/27/2024 9:45 AM CDT Office Visit [address] [place] [address] Riaz Peterson MD Recheck (EP, non-displaced left femoral neck fracture DOI:02/11/2024, x-rays) 04/27/2024 Travel 04/25/[address] [address] Dennis Barahona RN 04/22/2024 1:20 PM CDT Orders Only [address] [phone] Lab, [facility] 04/22/2024 Travel 04/20/2024 Telephone [facility] [address] [facility] [address] [place] [address] Marquis Santana MD Atrial Fibrillation 04/19/2024 9:05 AM CDT Anesthesia Event [facility] [address] [place] [address] Marco Aguiar MD Wilson, Timothy Eric, PICK UP ATTENDANT 04/19/2024 7:18 AM CDT - 04/19/2024 10:53 AM CDT Hospital Encounter [facility] [address] [place] [address] David Ugarte NP Gebre-Amlak, Kassatihun Debebe, MD Deviley, Sarah Jean, CRNA Atrial fibrillation, unspecified type (HC) (Primary Dx) Discharge Disposition: Home Self Care 04/19/2024 Travel 04/16/2024 7:06 AM CDT - 04/16/2024 10:07 AM CDT Hospital Encounter [facility] [address] [place] [address] Marquis Santana MD Wilson, Timothy Eric, CRNA Obesity, unspecified classification, unspecified obesity type, unspecified whether serious comorbidity present (Primary Dx); Chronic systolic heart failure (HC) Discharge Disposition: Home Self Care 04/16/2024 7:05 AM CDT Anesthesia Event [facility] [address] [place] [address] Placido Chowdhury CRNA 04/16/2024 Travel 04/15/2024 Telephone [facility] [address] [phone] Lianna Dominguez, KELSEA Device Check (AF alert) 04/14/2024 Telephone [facility] [address] [phone] Destin Johnston MD 04/13/2024 4:20 PM CDT Office Visit [facility] [address] [facility] [address] [place] [address] Rosalie Senior NP Heart Problem (Paroxysmal atrial fibrillation); Primary MD (Aba Boo MD/) 04/13/2024 8:00 AM CDT Office Visit [facility] [address] [facility] [address] [place], [place] [phone] Destin Johnston MD CV Heart Failure Est (STAT - IN PERSON F/U VISIT. LABS PRIOR @ [place] [facility] /Acute on chronic HFrEF (heart failure with reduced ejection fraction) //pt states he is in a-fib. He got converted on and went to primary yesterday to confirm he is in A-fib still.//) 04/13/2024 Travel 04/10/2024 Telephone [facility] [address] [phone] Marquis Banda RN Device Check (Patient thinks he back in AF) 04/08/2024 2:40 PM CDT Anesthesia Event [facility] [address] [place] [address] Zion Leigh MD 04/08/2024 12:19 PM CDT - 04/08/2024 3:58 PM CDT Hospital Encounter [facility] [address] [place] [address] Marquis Santana MD Wilson, Timothy Eric, CRNA Kushins, Stephen Isaac, MD Persistent atrial fibrillation (HC) (Primary Dx) Discharge Disposition: Home Self Care 04/08/2024 Travel 04/07/2024 Telephone [facility] [address] [phone] Marquis Santana MD Schedule Cardioversion 04/05/2024 10:30 AM CDT Office Visit [address] [phone] Kathleen Boyer PA Follow Up (follow up) 04/05/2024 Travel 04/02/2024 Telephone [facility] [address] [phone] Susana Joyner I, KELSEA Device Check 04/02/2024 Telephone [facility] [address] [phone] Destin Johnston MD Concerns (Defib beeping ) 03/30/2024 9:55 AM CDT Ancillary Procedure [facility] [address] [phone] 03/30/2024 9:50 AM CDT Ancillary Procedure [facility] [address] [place] [address] 03/30/2024 9:30 AM CDT Office Visit [facility] [address] [place] [address] Riaz Peterson MD Hip Pain/problem (left hip pain); Chest Injury (left side rib pain) 03/30/2024 Travel 03/29/2024 Telephone [facility] [address] [place] [address] Riaz Peterson MD Questions 03/22/2024 Telephone [facility] [address] [place] [address] Destin Johnston MD Follow Up (BP update) 03/19/2024 Orders Only [facility] [address] [place] [address] Destin Johnston MD <No scans attached> 03/15/2024 10:28 PM CDT - 03/19/2024 11:22 AM CDT Hospital Encounter [facility] [address] [place] [address] Alan De Santiago MD Kiberenge, MD Kaleb Monroy, MD Keyla Mcgarry, DO Gerardo Lundberg, Lee Kennedy MD [facility] Left displaced femoral neck fracture (HC) (Primary Dx); Closed fracture of multiple ribs of left side, sequela; Closed fracture of neck of left femur with routine healing, subsequent encounter; Acute on chronic HFrEF (heart failure with reduced ejection fraction) (HC) Discharge Disposition: Home Self Care 03/15/2024 6:00 PM CDT Hospital Encounter [facility] [address] [place] [address] [facility] 03/15/2024 1:49 PM CDT Anesthesia Event [facility] [address] [place] [address] Fatemeh Hunt CRNA 03/15/2024 12:13 PM CDT - 03/15/2024 9:18 PM CDT Emergency [facility] [address] [place] [address] Janina Valero MD Ball, Julieanne Patricia, MD Closed fracture of multiple ribs of left side, initial encounter (Primary Dx); Hypoxia; Hypotension, unspecified hypotension type; Laceration of multiple sites of left lower extremity, initial encounter Discharge Disposition: Crit Acc Hosp w Planned Readmission 03/15/2024 Telephone [facility] [address] [place] [phone] Erendira Sotomayor NP Letter (Request letter faxed on 03-12-24 be re-faxed as didn't receive the whole document.) 03/15/2024 Travel 03/12/2024 Telephone [facility] [address] [place] [address] Erendira Sotomayor NP Questions 03/11/2024 8:35 AM CDT Ancillary Procedure [address] [place] [address] 03/11/2024 8:30 AM CDT Office Visit [address] [facility] [address] [place] [address] Ellie Martinez PA Hip Pain/problem (Non-operative follow-up visit: non-displaced left femoral neck fracture) 03/11/2024 Travel 03/10/2024 Telephone [facility] [address] [place] [address] Erendira Sotomayor NP Medication Management 03/09/[address] [facility] [address] [place] [phone] Riaz Peterson MD 03/02/2024 1:00 PM CDT [facility] [address] [place] [address] Erendira Sotomayor, LIDYA CV Heart Failure Est (EST PT. STAT [facility] F/U, LABS PRIOR AT [facility], H/O CHRONIC HFrEF) 03/02/2024 Travel from Last 3 Months Immunizations Name [...] Sign Reading Time Taken Comments Blood Pressure 116/64 05/27/2024 10:00 AM CDT Pulse 70 05/27/2024 10:00 AM CDT Temperature 36.6 ??C (97.8 ??F) 05/14/2024 8:00 AM CD T Respiratory Rate 16 05/27/2024 9:15 AM CDT Oxygen Saturation 93% 05/27/2024 10:00 AM CDT Inhaled Oxygen Concentration - - Weight 124.7 kg (275 lb) 05/27/2024 7:30 AM CDT Height 200.7 cm (6' 7) 05/27/2024 7:30 AM CDT Body Mass Index 30.98 05/27/2024 7:30 AM CDT Plan of Treatment Upcoming Encounters Date Type Department Care Team (Late st Contact Info) Description 06/10/2024 8:00 AM CDT Office Visit [facility] [address] [place] [address] Destin Johnston MD [address] [facility] [address] [place] [address] 06/15/2024 8:15 AM CDT Office Visit [facility] [address] [facility] 1 [place] [address] Jono Peters MD [address] [facility] 1 [place] [address] 06/16/2024 9:15 AM CDT Office Visit [facility] [address] [facility] [address] [place] [address] Riaz Peterson MD [address] [facility] [address] [place] [address] 06/21/2024 7:30 AM CDT Orders Only [facility] 100 [place] [address] Lab, Ale 06/24/2024 9:45 AM CDT Office Visit [facility] [address] [place] [phone] Sanjay Lazaro MD [address] [place] [address] 06/25/2024 Cardiac Device Check [facility] [phone] 06/29/2024 2:20 PM CDT Office Visit [facility] [place] [address] [place] [address] Rosalie Senior NP [address] [place], [place] [phone] Health Maintenance Due Date Last Done Comments [...] COVID-19 vaccine series (2 - 2022- season) 2024 06/27/2021 Influenza for age 65+ 05/30/2024 06/24/2013 Medicare Wellness for age 65+ 11/10/2024 11/10/2023, 11/28/2015 BMI (ht and wt on same day) for age 18+ 05/24/2025 05/24/2024, 04/13/2024, 04/13/2024, Additional history exists AAA screening age 65-74 Completed 03/15/2024 Medical Devices Implanted Type Area Marketing Communications Assistant Device Identifier Shelf Expiration Date Model / Serial / Lot Graft Valsalva 34mm - [id number] Implanted:Qty: [address] on 09/09/[address] [facility] [employer] [id number] / / Procedures Procedure Name Priority Date/Time Associated Diagnosis Comments EP CARDIOVERSION Routine 05/27/2024 9:10 AM CDT EKG 12 LEAD Post Op 05/27/2024 9:09 AM CDT POTASSIUM,ISTAT Timed 05/27/2024 8:04 AM CDT EKG 12 LEAD Preop 05/27/2024 7:24 AM CDT SCAN-CARDIAC STRIP 05/27/2024 12 :00 AM CDT AST (SGOT) Add On 05/20/2024 11:09 AM [...] PELVIS W STAT 03/15/2024 2:02 PM CDT [facility] AN IV START Routine 03/15/2024 1:33 PM CDT [facility] AN IV START Routine 03/15/2024 1:33 PM CDT [facility] AN IV START Routine 03/15/2024 1:33 PM CDT [facility] AN IV START Routine 03/15/2024 1:33 [...] Relevant to Health Maintenance Results * EKG (05/27/2024 9:09 AM CDT) Only the most recent of14 resultswithin the time period is included. Interpretation Atrial-paced rhythm with prolonged AV conduction Left axis deviation Non-specific intra-ventricula r conduction block Cannot rule out Inferior infarct , age undetermined Possible Anterolateral infarct (cited on or before 10-Sep-2011) Abnormal ECG When compared with ECG of 27-May-2024 07:24, Electronic atrial pacemaker has replaced Sinus rhythm BEYOND NOW Ventricular Rate 70 BPM BEYOND NOW Atrial Rate 70 BPM BEYOND NOW P-R Interval 254 ms BEYOND NOW QRS Duration 130 ms BEYOND NOW QT 476 ms BEYOND NOW QTc 514 ms BEYOND NOW P Acworth degrees BEYOND NOW R Acworth -37 degrees BEYOND NOW T Acworth 71 degrees BEYOND NOW 05/27/2024 9:09 AM CDT 05/28/2024 1:34 PM CDT Narrative [facility] NOW - 05/28/2024 1:34 PM CDT Test Indication: POST DCCV Kathi ARMAS EKG ORD Performing Organization Address City/[facility]/ZIP Co de Phone Number [facility] NOW [place], [place] * POTASSIUM,ISTAT (05/27/2024 8:04 AM CDT) Only the most recent of6 resultswithin the time period is included. Pathologist [facility] POTASSIUM, POCT 3.7 3.5 - 5.0 mmol/L 05/28/2024 8:30 AM CDT [facility] Blood BLOOD SPECIMEN / Unknown 05/27/2024 8:04 AM CDT 05/28/2024 8:30 AM CDT Seamus Cole MD [facility] [address] [place] [address], * SCAN-CARDIAC STRIP (05/27/2024 12:00 AM CDT) Narrative 05/27/2024 12:00 AM CDT Ordered by an unspecified provider. Other Clinical Staff OTHER * ALT (SGPT) (05/20/2024 11:09 AM CDT) Only the most recent of3 resultswithin the time period is included. ALT (SGPT) 28 10 - 50 IU/L 05/20/2024 2:49 PM CDT [facility] Blood BLOOD SPECIMEN / Unknown Venipuncture / Unknown 05/20/2024 11:09 AM CDT 05/20/2024 11:10 AM CDT Marquis Santana MD CHEMISTRY [facility] [address] [place] [address] * AST (SGOT) (05/20/2024 11:09 AM CDT) Only the most recent of3 resultswithin the time period is included. AST (SGOT) 42 10 - 50 IU/L 05/20/2024 2:39 PM CDT [facility] Blood BLOOD SPECIMEN / Unknown Venipuncture / Unknown 05/20/2024 11:09 AM CDT 05/20/2024 11:10 AM CDT Marquis Santana MD CHEMISTRY [facility] [address] [place] [address] * (ABNORMAL) PRO-BNP (05/20/2024 11:09 AM CDT) Only the most recent of4 resultswithin the time period is included. PRO-BNP 1,866(H) <125 pg/mL 05/20/2024 11:45 AM CDT [facility] Blood BLOOD SPECIMEN / Unknown Venipuncture / Unknown 05/20/2024 11:09 AM CDT 05/20/2024 11:10 AM CDT Narrative [facility] - 05/20/2024 11:45 AM CDT The [...] failure. ? Destin Johnston MD SEND OUTS [facility] [address] [place] [address] * (ABNORMAL) BASIC METABOLIC PANEL (05/20/2024 11:09 AM CDT) Only the most recent of10 resultswithin the time period is included. SODIUM 140 136 - 145 mmol/L 05/20/2024 11:44 AM T [facility] POTASSIUM 3.7 3.5 - 5.1 mmol/L 05/20/2024 11:44 AM T [facility] CHLORIDE 97(L) 98 - 107 mmol/L 05/20/2024 11:44 AM T [facility] CO2,TOTAL 34(H) 22 - 29 mmol/L 05/20/2024 11:44 AM T [facility] ANION GAP 9 5 - 18 05/20/2024 11:44 AM T [facility] GLUCOSE 120(H) 70 - 99 mg/dL 05/20/2024 11:44 AM T [facility] CALCIUM 9.2 8.8 - 10.2 mg/dL 05/20/2024 11:44 AM [facility] BUN 27(H) 8 - 23 mg/dL 05/20/2024 11:44 AM [facility] CREATININE 1.15 0.70 - 1.20 mg/dL 05/20/2024 11:44 AM [facility] BUN/CREAT RATIO 23(H) 10 - 20 11:44 AM [facility] eGFR 67(L) >90 mL/min/1.7 3m2 05/20/2024 11:44 AM [facility] Comment:As of 2021, eG FR [...] 11:10 AM CDT Destin Johnston MD CHEMISTRY [facility] [address] [place] [address] * EP CARDIOVERSION (05/14/2024 9:46 AM CDT) Anatomical Region Laterality Modality X-Ray Angiograph y Narrative 05/14/2024 9:46 AM CDT Seamus Cole MD ? 05/17/2024 ??7:41 AM [facility][Note 3] Cardiac Electrophysiology Procedure Note DOS: 05/14/2024 Brief History: ??Mr. Centeno is a pleasant 73 year old with history of atrial arrhythmias who now presents to [facility] NPO since midnight for direct current cardioversion. ??Rivaroxaban 20 mg daily with evening meal with no missed doses in the past 21 days. Procedure Description: ??Time out was called. ??Brief general anesthesia by anesthesia service. ??Cardioversion patches were placed in an anterior/posterior position. ??One 250 joules synchronized shock delivered with adventist of an AV paced rhythm. ?? Complications: ??No acute complications. ?? Plan: ??Mr. Centeno is now recovering from sedation and would anticipate discharge home later today. Dr. Cole was readily available to provide assistance and direction throughout the time services were performed Esther Macdonald NP ?? [facility][Note 3] Cardiac Electrophysiology Services Seamus Cole MD Cardiac Arrhythmia Section [facility][Note 3] Seamus Cole MD CV IMAGING * SCAN-CARDIAC STRIP (05/14/2024 12:00 AM CDT) Narrative 05/14/2024 12:00 AM CDT Ordered by an unspecified provider. Other Clinical Staff OTHER * MAGNESIUM (05/13/2024 8:42 AM CDT) Pathologist [facility] MAGNESIUM 1.9 1.6 - 2.4 mg/dL 05/14/2024 9:14 AM CDT [facility] Blood BLOOD SPECIMEN / Unknown Venipuncture / Unknown 05/13/2024 8:42 AM CDT 05/13/2024 8:42 AM CDT Esther Macdonald NP CHEMISTRY [facility] [address] [place] [address], * SCAN-CARDIAC STRIP (05/11/2024 1:28 PM CDT) Scanner OTHER * (ABNORMAL) ACTIVATED CLOTTING TIME [id number] ACT (05/11/2024 11:38 AM CDT) Only the most recent of6 resultswithin the time period is included. ACTIVATED CLOTTING TIME, POCT 174(H) 74 - 125 sec 05/11/2024 11:52 AM CDT [facility] Blood BLOOD SPECIMEN / Unknown 05/11/2024 11:38 AM CDT 05/11/2024 11:52 AM CDT Marquis Santana MD [facility]Y [facility] [address] [place] [address], * EP STUDY /ABLATION (05/11/2024 8:13 AM CDT) Anatomical Region Laterality Modality X-Ray Angiograph y, X-Ray Angiography 05/11/2024 8:13 AM CDT Narrative Transcriptions Marquis Santana MD - 05/11/2024 5:20 PM CDT [facility][Note 3] at [facility] Electrophysiology Procedure Report Name: RAIN CENTENO Event Date: 05/11/2024 [facility] ID #: [id number] Date: 1950 Gender: Male Age: 73 [facility] #: [id number] Procedure Performed By: MARQUIS SANTANA [facility][Note 3] Referring Physician: Summary / Conclusions 1. Complex [...] ? Same as Pre-operative diagnosis Consent & Harrogate Protocol Harrogate protocol was followed. TIME OUT conducted just [...] micropuncturetechnique, two sheaths were introduced (one 8 Cuban and one 7 Cuban)into the right femoral vein, one 9 Cuban sheath was introduced into theleft femoral vein. [...] the electrophysiology study and ablation procedure. Utilizing aHearLoopcampan needle, the puncture was executed under the [...] the ACT. The patient was transported to [facility] in stable condition for further monitoring. Procedure [...] Intervals Study State Underlying Rhythm Cycle Length OR PA AH HV QRS Acworth QRSMorphology Baseline Atrial Fibrillation [phone] Post Ablation [...] See Anesthesia Note Total Flouro Time: 4.5 PRIMARY CARE COORDINATOR Total Flouro Dose: 7 mGy Transseptal Mean LA Pressure: 20 mmHg Staff Name Role Marquis Santana Ceramic Tile Installer Mary Juarez RN Nurse Will Dumont CVT Monitor Elayne Cano CVT Scrub Mo Clancy EPClinton Chief Airport Guide Medications Ordered and Administered Start Time Stop Time Medication Dose Units Route Ordered By Given By 08:15 0.25% Bupivicaine 10 mL Subcut MD Marquis Melton MD 08:16 1% Lidocaine Hydrochloride 10 mL Subcut MD Marquis Melton MD 08:19 0.25% Bupivicaine 5 mL Subcut MD Marquis Melton MD 08:19 1% Lidocaine Hydrochloride 5 mL Subcut MD Marquis Melton MD 08:25 Heparin [id number] Units IV MD Mary Melton RN 08:37 [...] 5:20:28 PM with status of Final Marquis Satnana MD Ceramic Tile Installer [facility] [address] [place] [address] (p) [phone](f) Marquis Santana MD CV IMAGING * HCHG [...] Adequate, No estimate 05/11/2024 7:24 AM CDT [facility] Blood BLOOD SPECIMEN / Unknown Venipuncture / Unknown 05/11/2024 6:13 AM CDT 05/11/2024 6:22 AM CDT Marquis Santana MD HEMATOLOGY [facility] [address] [place] [address], * (ABNORMAL) CBC with Platelet no Diff (05/11/2024 6:13 AM CDT) Only the most recent of6 resultswithin the time period is included. WHITE BLOOD COUNT 8.5 4.5 - 11.0 thou/cu mm 05/11/2024 7:24 AM CDT [facility] RED BLOOD COUNT 4.01(L) 4.30 - 5.90 mil/cu mm 05/11/2024 7:24 AM CDT [facility] HEMOGLOBIN 11.5(L) 13.5 - 17.5 g/dL 05/11/2024 7:24 AM CDT [facility] HEMATOCRIT 37.5 37.0 - 53.0 % 05/11/2024 7:24 AM CDT [facility] MCV 94 80 - 100 fL 05/11/2024 7:24 AM CDT [facility] MCH 28.7 26.0 - 34.0 pg 05/11/2024 7:24 AM CDT [facility] MCHC 30.7(L) 32.0 - 36.0 g/dL 05/11/2024 7:24 AM CDT [facility] RDW 15.6(H) 11.5 - 15.5 % 05/11/2024 7:24 AM CDT [facility] PLATELET COUNT 05/11/2024 7:24 AM T [facility] Comment: Platelet clumped, unable to determine This is a corrected result. Previously reported as 108 thou/cu mm with reference range 140-440 thou/cu mm on 05/11/2024 at 0723 CDT MPV 05/11/2024 7:24 AM T [facility] Comment: Unable to determine This is a corrected result. Previously reported as 11.6 fL with reference range 6.5-11.0 fL on 05/11/2024 at 0723 CDT NRBC 0.0 % 05/11/2024 7:24 AM CDT [facility] ABS NRBC 0.0 thou /cu mm 05/11/2024 7:24 AM CDT [facility] Blood BLOOD SPECIMEN / Unknown Venipuncture / Unknown 05/11/2024 6:13 AM CDT 05/11/2024 6:22 AM CDT Marquis Santana MD HEMATOLOGY Performing Organization Address [facility] Co de Phone Number [facility] [address] [place] [address], * EXTRA TUBE GOLD/SST (05/11/2024 6:10 AM CDT) Blood BLOOD SPECIMEN / Unknown Extra Tube / Unknown 05/11/2024 6:10 AM CDT 05/11/2024 6:23 AM CDT Marquis Santana MD LABORATORY Performing Organization Address City/[facility] Co de Phone Number [facility] [address] [place] [address], * SCAN-CARDIAC STRIP (05/11/2024 12:00 AM CDT) [...] MD DEVICE DATA Medtronic Evera MRI XT [id number] SN: [id number] Implant Date 08/03/2019 LEAD DATA Atrial Lead: Medtronic 5076 - 52 MRI SN: [id number] Implant Date 08/03/2019 RV Lead: Medtronic 6935M - 62 MRI SN: [id number] Implant Date 08/03/2019 Tachy therapy hx: none 01/2023 Presence of a glassed feedthrough creates increased risk of unexpected HV arching within the header during therapy delivery. All HV pathways have been programmed B>AX. Hx: ??DCCV 04/30/24 DCCV ??04/19/24 Location of evaluation: [facility] P/R 18 post Cardioversion Reason for evaluation: [...] past two weeks from his device: per senior statistical programmer reason for alert was that it was unable to send a transmission. ??Patient and family confirm that bedside monitor is plugged in. ??Provided family with [employer] Support number in case this happens again. Follow up: as previously scheduled [facility] remote on 06/25/24 prior to seeing Rosemarie Senior NP in [place] Routine follow up: Every 3 - 4 months via [facility] remote with annual [employer] Pl[employer] or clinic with Dr. Santana each February. Susana Joyner, RN Nurse Clinician II [facility] Pacemaker/ICD Clinic [phone] Marquis Santana MD CARDIAC SERVICES ORD * EP CARDIOVERSION (04/30/2024 12:06 PM CDT) Anatomical Region Laterality Modality X-Ray Angiograph y Narrative 04/30/2024 12:06 PM CDT Nora Lara NP ? 04/30/2024 12:21 PM [facility][Note 3] Cardiac Electrophysiology Procedure Note DOS: 04/30/2024 Brief [...] ??One 200 joules synchronized shock delivered with adventist of sinus rhythm. ?? Complications: ??No acute complications. ?? Plan: ?? Rain Centeno is now recovering from sedation and would anticipate discharge home later today. Dr. Juarez was readily available to provide assistance and direction throughout the time services were performed Nora Lara NP [facility][Note 3] Cardiac Electrophysiology Marquis Santana MD CV IMAGING * SCAN-CARDIAC STRIP (04/30/2024 12:00 AM CDT) Narrative 04/30/2024 12:00 AM CDT Ordered by an unspecified provider. Other Clinical Staff OTHER * XR HIP 2 OR 3 VIEWS W PELVIS LEFT (04/27/2024 10:24 AM CDT) Only the most recent of4 [...] This radiology exam was performed at the [facility] Orthopedic Radiology Department in [place] and interpreted by Riaz Peterson MD. HISTORY: [...] - 4.20 uIU/mL 04/22/2024 2:25 PM CDT [facility] Blood BLOOD SPECIMEN / Unknown Venipuncture / Unknown 04/22/2024 1:29 PM CDT 04/22/2024 1:29 PM CDT Narrative [facility] - 04/22/2024 2:25 PM CDT In Adults, TSH values between 5.00 and 10.00 uIU/ml do not necessarily indicate the presence of Hypothyroidism. Correlation with clinical findings such as presence of goiter and/or Thyroperoxidase (TPO) Antibody may be helpful. For more information please refer to YU 2004; 291: 228-238. Marquis Santana MD CHEMISTRY [facility] [address] [place], [place] [id number] * SCAN-CARDIAC STRIP (04/19/2024 12:00 AM CDT) Narrative 04/19/2024 12:00 AM CDT Ordered by an unspecified provider. Other Clinical Staff OTHER * EP CARDIOVERSION (04/08/2024 2:44 PM CDT) Anatomical Region Laterality Modality X-Ray Angiograph y Narrative 04/08/2024 2:44 PM CDT Seamus Cole MD ? 04/08/2024 ??4:11 PM [facility] Cardiac Electrophysiology Procedure Note DOS: 04/08/2024 Brief History: ??Rain Centeno is a pleasant 73 y.o. year old with history of persistent atrial fibrillation who now presents to [facility] NPO since midnight for direct current [...] time services were performed David Ugarte NP [facility][Note 3] Cardiac Electrophysiology Seamus Cole MD Cardiac Arrhythmia Section [facility][Note 3] Marquis Santana MD CV IMAGING * SCAN-CARDIAC [...] @ Mar ??2 2023 ??3:21PM (Electronically Signed) [email or web address] Narrative 03/30/2024 3:21 PM CDT For Patients: [...] @ Mar 30 2024 3:21PM (Electronically Signed) [email or web address] Riaz Peterson MD GENERAL IMAGING * SCAN-CARDIAC STRIP (03/19/2024 9:21 AM CDT) Scanner OTHER * (ABNORMAL) HEPATIC FUNCTION PANEL (03/19/2024 4:50 AM CDT) Only the most recent of4 resultswithin the time period is included. ALBUMIN 3.3(L) 4.0 - 4.9 g/dL 03/19/2024 5:44 AM CDT [facility] PROTEIN,TOTAL 6.1 6.0 - 8.0 g/dL 03/19/2024 5:44 AM CDT [facility] BILIRUBIN,TOTAL 0.5 0.0 - 1.2 mg/dL 03/19/2024 5:44 AM CDT [facility] BILIRUBIN,DIRECT 0.2 0.0 - 0.3 mg/dL 03/19/2024 5:44 AM CDT [facility] BILIRUBIN,INDIRE CT 0.3 0.2 - 0.8 mg/dL 03/19/2024 5:44 AM CDT [facility] ALK PHOSPHATASE 122 40 - 129 IU/L 03/19/2024 5:44 AM CDT [facility] ALT (SGPT) 37 10 - 50 IU/L 03/19/2024 5:44 AM CDT [facility] AST (SGOT) 56(H) 10 - 50 IU/L 03/19/2024 5:44 AM CDT [facility] Blood BLOOD SPECIMEN / Unknown Venipuncture / Unknown 03/19/2024 4:50 AM CDT 03/19/2024 5:14 AM CDT Varghese Mckenna MD [facility]Y [facility] [address] [place] [address], * SCAN-CARDIAC STRIP (03/19/2024 12:01 AM CDT) Scanner OTHER * (ABNORMAL) GLUCOSE METER (03/18/2024 8:36 PM CDT) Only the most recent of13 resultswithin the time period is included. [facility] Signature GLUCOSE METER 172(H) 65 - 100 mg/dL 03/18/2024 11:27 PM CDT [facility] Blood BLOOD SPECIMEN / Unknown 03/18/2024 8:36 PM CDT 03/18/2024 11:27 PM CDT Lee Carrillo MD CHEMISTRY [facility] [address] [place] [address], [place] * US ARTERIAL LOWER EXTREMITY LEFT [...] 03/17/2024 4:35 AM CDT Narrative [facility] - 03/17/2024 10:19 PM CDT In Adults, TSH values between 5.00 and 10.00 uIU/ml do not necessarily indicate the presence of Hypothyroidism. Correlation with clinical findings such as presence of goiter and/or Thyroperoxidase (TPO) Antibody may be helpful. For more information please refer to YU 2004; 291: 228-238. Shane Ramires DO CHEMISTRY Performing Organization Address [facility]/ZIP Co de Phone Number [facility] [address] [place] [address], * T4,FREE (03/17/2024 4:18 AM CDT) T4,FREE 1.37 0.93 - 1.70 ng/dL 03/17/2024 10:51 PM CDT [facility] Blood BLOOD SPECIMEN / Unknown Venipuncture / Unknown 03/17/2024 4:18 AM CDT 03/17/2024 4:35 AM CDT Shane Ramires DO CHEMISTRY Performing Organization Address [facility] Co de Phone Number [facility] [address] [place] [address], [place] * CK TOTAL (03/17/2024 4:18 AM CDT) Pathologist [facility] CK,TOTAL 133 39 - 308 IU/L 03/17/2024 9:43 PM CDT [facility] Blood BLOOD SPECIMEN / Unknown Venipuncture / Unknown 03/17/2024 4:18 AM CDT 03/17/2024 4:35 AM CDT Shane Ramires DO CHEMISTRY Performing Organization Address City/[facility] Co de Phone Number [facility] [address] [place] [address], * CALCIUM IONIZED HOSPITAL DRAW ONLY (03/17/2024 4:18 AM CDT) Only the most recent of3 resultswithin the time period is included. CALCIUM,IONIZE D 1.18 1.15 - 1.27 mmol/L 03/17/2024 4:41 AM CDT [facility] Blood BLOOD SPECIMEN / Unknown Venipuncture / Unknown 03/17/2024 4:18 AM CDT 03/17/2024 4:35 AM CDT Estrella Flores MD CHEMISTRY Performing Organization Address [facility] Co de Phone Number [facility] [address] [address], * SCAN-CARDIAC STRIP (03/16/2024 7:21 PM CDT) Scanner OTHER * (ABNORMAL) URINALYSIS MICROSCOPIC (03/16/2024 4:32 PM CDT) RBC 0-2 0-2, None Seen /HPF 03/16/2024 4:49 PM CDT [facility] WBC 0-2 0-2, 3-5, None Seen /HPF 03/16/2024 4:49 PM CDT [facility] BACTERIA None Seen None Seen, Rare, Few Bacteria/ HPF 03/16/2024 4:49 PM CDT [facility] EPITHELIAL CELLS None Seen None Seen, Few Epi/HPF 03/16/2024 4:49 PM CDT [facility] HYALINE CASTS 11-25(A) 0-2, 3-5 /LPF 03/16/2024 4:49 PM CDT [facility] Urine URINE SPECIMEN / Unknown Non-Blood / Unknown 03/16/2024 4:32 PM CDT 03/16/2024 4:40 PM CDT Lucio ARMAS URINE Performing Organization Address [facility]/ZIP Co de Phone Number [facility] [address] [place] [address], * (ABNORMAL) UA W/ SEDIMENT EXAM REFLEXED PER CRITERIA (03/16/2024 4:32 PM CDT) COLOR Yellow Yellow Color 03/16/2024 4:49 PM CDT [facility] CLARITY Clear Clear Clarity 03/16/2024 4:49 PM CDT [facility] SPECIFIC GRAVITY,URINE 1.015 1.010, 1.015, 1.020, 1.025 03/16/2024 4:49 PM CDT [facility] PH,URINE 5.0(A) 6.0, 7.0, 8.0, 5.5, 6.5, 7.5, 8.5 03/16/2024 4:49 PM CDT [facility] UROBILINOGEN, QUALITATIVE Normal Normal EU/dl 03/16/2024 4:49 PM CDT [facility] PROTEIN, URINE Trace(A) Negative mg/dL 03/16/2024 4:49 PM CDT [facility] GLUCOSE, URINE >=1000(A) Negative mg/dL 03/16/2024 4:49 PM CDT [facility] KETONES,URINE Negative Negative mg/dL 03/16/2024 4:49 PM CDT [facility] BILIRUBIN,URI NE Negative Negative 03/16/2024 4:49 PM CDT [facility] OCCULT BLOOD,URINE Negative Negative 03/16/2024 4:49 PM CDT [facility] NITRITE Negative Negative 03/16/2024 4:49 PM CDT [facility] LEUKOCYTE ESTERASE Negative Negative 03/16/2024 4:49 PM CDT [facility] Urine URINE SPECIMEN / Unknown Non-Blood / Unknown 03/16/2024 4:32 PM CDT 03/16/2024 4:40 PM CDT Lucio ARMAS URINE [facility] [address] [place] [address], * PROCALCITONIN (03/16/2024 4:08 PM CDT) PROCALCITONIN 0.04 ng/ml 03/16/2024 4:59 PM CDT [facility] Blood BLOOD SPECIMEN / Unknown Butterfly / Unknown 03/16/2024 4:08 PM CDT 03/16/2024 4:[address] [facility] LABORATORY-CENTRAL LABORATORY - 03/16/2024 4:59 PM CDT Procalcitonin [...] ng/mL are obtained. Lucio ARMAS SEND OUTS [facility] [address] [place] [address], * BLOOD CULTURE (03/16/2024 4:08 PM CDT) Only the most recent of2 resultswithin the time period is included. CULTURE No Growth. 03/20/2024 7:10 PM CDT [facility] Blood BLOOD SPECIMEN / Unknown Butterfly / Unknown 03/16/2024 4:08 PM CDT 03/16/2024 4:18 PM CDT Narrative [facility] - 03/20/2024 7:10 PM CDT Low volume blood culture received; possible false negative culture. Lucio ARMAS MICROBIOLOGY Performing Organization Address [facility] Co de Phone Number [facility] [address] [place] [phone], * ICD ANALYSIS DUAL WITHOUT REPROGRAM (03/16/2024 3:32 PM CDT) Narrative Marquis Santana MD - 03/16/2024 3:32 PM CDT Cyndi Arnold RN ? 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 All HV pathways have been programmed B>AX. Location of evaluation: [facility] - [id number] Reason for evaluation: Provider Request MEASUREMENTS Atrial [...] 4 months via [facility] remote with annual [employer] Plane or clinic with Dr. Santana each February. Cyndi Arnold, RN Nurse Clinician II [facility][Note 3] Pacemaker/ICD Clinic Marquis Santana MD CARDIAC SERVICES ORD * EXTRA TUBE LIGHT GREEN (03/16/2024 1:23 PM CDT) Blood BLOOD SPECIMEN / Unknown Non-Lab Venipuncture / Unknown 03/16/2024 1:23 PM CDT 03/16/2024 1:33 PM CDT Estrella Flores MD LABORATORY [facility] [address] [place] [address], * (ABNORMAL) BLOOD GAS,VENOUS (03/16/2024 1:23 PM CDT) PH, VENOUS 7.31(L) 7.32 - 7.43 03/16/2024 1:36 PM CDT [facility] PCO2, VENOUS 68(H) 41 - 51 mmHg 03/16/2024 1:36 PM CDT [facility] PO2, VENOUS 63(H) 35 - 40 mmHg 03/16/2024 1:36 PM CDT [facility] HCO3,VENOUS 34(H) 22 - 29 mmol/L 03/16/2024 1:36 PM CDT [facility] BASE EXCESS, VENOUS, POCT 5.6(H) -2.0 - 3.0 03/16/2024 1:36 PM CDT [facility] O2 SATURATION, VENOUS 93(H) 70 - 75 % 03/16/2024 1:36 PM CDT [facility] PATIENT TEMPERATURE 37.0 Degrees C 03/16/2024 1:36 PM CDT [facility] Blood VENOUS BLOOD SPECIMEN / Unknown Butterfly / Unknown 03/16/2024 1:23 PM CDT 03/16/2024 1:31 PM CDT Estrella Flores MD CHEMISTRY [facility] [address] [address], [place] * LACTATE VENOUS (03/16/2024 1:22 PM CDT) Only the most recent of3 resultswithin the time period is included. LACTATE,VENOUS 0.8 0.5 - 2.0 mmol/L 03/16/2024 2:38 PM CDT [facility] Blood BLOOD SPECIMEN / Unknown Butterfly / Unknown 03/16/2024 1:22 PM CDT 03/16/2024 1:31 PM CDT Lucio ARMAS CHEMISTRY Performing Organization Address [facility] Co de Phone Number [facility] [address] [place] [address], [place] * (ABNORMAL) HEMOGLOBIN (03/16/2024 1:22 PM CDT) Only the most recent of2 resultswithin the time period is included. Pathologist [facility] HEMOGLOBIN 11.1(L) 13.5 - 17.5 g/dL 03/16/2024 1:39 PM CDT [facility] MCV 101(H) 80 - 100 fL 03/16/2024 1:39 PM CDT [facility] Blood BLOOD SPECIMEN / Unknown Butterfly / Unknown 03/16/2024 1:22 PM CDT 03/16/2024 1:31 PM CDT Lucio ARMAS HEMATOLOGY Performing Organization Address [facility] Co de Phone Number [facility] [address] [address], [place] * (ABNORMAL) FACTOR 10 CHROMOGENIC (03/16/2024 1:22 PM CDT) FACTOR 10 CHROMOGENIC 41(L) 65 - 130 % 03/16/2024 1:46 PM CDT [facility] Blood BLOOD SPECIMEN / Unknown Butterfly / Unknown 03/16/2024 1:22 PM CDT 03/16/2024 1:31 PM CDT Narrative [facility] - 03/16/2024 1:46 PM CDT Therapeutic Range 20-40% Lucio ARMAS SEND OUTS Performing Organization Address [facility] de Phone Number [facility] [address] [address], [place] * CORTISOL TOTAL (03/16/2024 10:29 AM CDT) CORTISOL,TOTAL 15.0 ug/dL 03/16/2024 1:29 PM CDT [facility] Blood BLOOD SPECIMEN / Unknown Non-Lab Venipuncture / Unknown 03/16/2024 10:29 AM CDT 03/16/2024 10:35 AM CDT Narrative [facility] - 03/16/2024 1:29 PM CDT Cortisol ?Morning [...] Estrella Flores MD CHEMISTRY Performing Organization Address [facility] de Phone Number [facility] [address] [address], [place] * ECHO TTE LIMITED W CONTRAST W COLOR W DOPPLER (03/16/2024 10:23 AM CDT) AORTIC VALVE MEAN PG 7 mmHg EJECTION FRACTION 50 - 55% Anatomical Region Laterality Modality Ultrasound 03/16/2024 9:42 AM CDT Narrative 03/16/2024 11:06 AM CDT ECHOCARDIOGRAM RAIN CENTENO ? Accession#: ?? [id number] : ?1950 73 years Study Date: ?? 03/16/2024 9:42:01 AM Gender: M ?BP: ? 84/55 mmHg Height: 137.00 cm ?BSA: ?2.42 m? ? ? Weight: 200.00 kg ?Tech: ? OLL ? Referring MD: ESTRELLA FLORES Site: ? [facility] Reading Location: ANW IP Patient Location: [...] documentation: 2 ml diluted Definity, lot #[id number], [facility]# [id number] was administered peripherally to enhance visualization of all left ventricular segments. . This study was interpreted by an [facility] accredited facility. ??Final ?? Procedure Note Leonel Montanez MD - 03/16/2024 ECHOCARDIOGRAM RAIN CENTENO : 1950 73 years Study Date: 03/16/2024 9:42:01 AM Gender: M BP: 84/55 mmHg Height: 137.00 cm BSA: 2.42 m? ? ? Weight: 200.00 kg Tech: ANGIE Referring MD: ESTRELLA FLORES Site: [facility] Reading Location: [facility] Patient Location: Inpatient. Procedure: Limited Echo [...] documentation: 2 ml diluted Definity, lot #[id number], [facility]#[id number] was administered peripherally to enhance visualization of [...] 6-15 ng/L ng/L 03/15/2024 8:14 PM CDT [facility] Blood BLOOD SPECIMEN / Unknown Venipuncture / Unknown 03/15/2024 7:54 PM CDT 03/15/2024 7:56 PM CDT Janina Valero MD CHEMISTRY [facility] [address] [place] [address] * CT CERVICAL SPINE WO (03/15/2024 2:10 [...] Used: set primary IV tubing Fatemeh Hunt PICK UP ATTENDANT ANESTHESIA PX NOTE ORDERABLES * XR CHEST [...] 6-15 ng/L ng/L 03/15/2024 8:01 PM CDT [facility] Blood BLOOD SPECIMEN / Unknown Venipuncture / Unknown 03/15/2024 12:48 PM CDT 03/15/2024 12:57 PM CDT [facility] LABORATORY - 03/15/2024 8:01 PM [...] Janina Valero MD CHEMISTRY Performing Organization Address [facility]/ZIP Co de Phone Number [facility] [address] [place] [address] * Type and Screen (03/15/2024 12:48 PM CDT) ABORH O Rh Positive 03/15/2024 1:29 PM CDT [facility] BLOOD BANK ANTIBODY SCREEN Negative Negative 03/15/2024 1:29 PM CDT [facility] BLOOD BANK SPECIMEN EXPIRATION DATE/TIME 03/18/24 23:59 03/15/2024 1:29 PM CDT [facility] BLOOD BANK Blood BLOOD SPECIMEN / Unknown Venipuncture / Unknown 03/15/2024 12:48 PM CDT 03/15/2024 12:57 PM CDT Janina Valero MD BLOOD BANK Performing Organization Address [facility] Co de Phone Number [facility] BLOOD BANK [address] [place] [address] * (ABNORMAL) PROTIME- INR (03/15/2024 12:48 PM CDT) INR 2.4(H) <1.3 03/15/2024 1:09 PM CDT [facility] PROTIME 26.0(H) 10.3 - 12.3 sec 03/15/2024 1:09 PM CDT [facility] Blood BLOOD SPECIMEN / Unknown Venipuncture / Unknown 03/15/2024 12:48 PM CDT 03/15/2024 12:57 PM CDT Narrative [facility] - 03/15/2024 1:09 PM CDT [...] Janina Valero MD HEMATOLOGY Performing Organization Address [facility] Co de Phone Number [facility] [address] [place] [address] * (ABNORMAL) LIPID PANEL (01/07/2018 4:35 PM CDT) [facility] CHOLESTEROL,TOTAL 174 100 - 199 mg/dL 01/07/2018 6:28 PM CDT [facility] TRIGLYCERIDES 194(H) <150 mg/dL 01/07/2018 6:28 PM CDT [facility] HDL CHOLESTEROL 64 >40 mg/dL 8 6:28 PM CDT [facility] NON-HDL CHOLESTEROL 110 <145 mg/dl 01/07/2018 6:28 PM CDT [facility] CHOL/HDL RATIO 2.72 <4.50 01/07/2018 6:28 PM CDT [facility] LDL CHOLESTEROL 71 <=130 mg/dL 01/07/2018 6:28 PM CDT [facility] PROVIDER ORDERED STATUS RANDOM 01/07/2018 6:28 PM CDT [facility] Blood BLOOD SPECIMEN / Unknown Venipuncture / Unknown 01/07/2018 4:35 PM CDT 01/07/2018 4:39 PM CDT Aba Boo MD CHEMISTRY Performing Organization Address [facility] Co de Phone Number [facility] [address] [place] [address] from Last 3 Months or Most Recently [...] Comments Code Status Discussion: Other Care Teams Ship Scraper Relationship Specialty Start Date End Date Aba Boo MD [address] [place] [address] PCP - General Family Practice 11/18/19 Destin Johnston MD [address] [address] Cardiology - CHF Cardiovascular Disease 04/14/20 Nurses, Advanced Heart Failure [address] [address] Advanced Heart Failure/Transplant Card 04/14/20
--- OUTSIDE RECORDS SUMMARY | 2024-06-02 12:53 | XMS_ITS | Clinical Summary ---
Author Organization [facility] Address [address] [place] [address] Care Team Providers Care Cigar Packer And Picker Name Role Phone Clinician, Not Found MD Primary Care Provider Un available Source Comments You are receiving this document as you are listed as the primary care provider,follow-up provider, or the patient has been referred to you for consultation.This is in compliance with the Medicare and[facility] EHR Incentive Program,which states Providers who transition their patient to another setting of careor provider of care or refers their patient to another provider of care shouldprovide summary care record for each transition of care or referral. [employer] Allergies No known active allergies Medications Medication [...] 020 Overview (06/15/2020): By Dr. Murrieta at [facility]. Ascending aorta dilation 06/15/2020 Overview (06/15/2020): -09/09/11: [...] COVID-19 Vaccine (4 - 2022-2 4 season) 2024 06/27/2021, 12/10/2020, 11/19/2020 Influenza (#1) 2024 07/19/2021, [...] this topic Medical Devices Implanted Type Area Railroad Hand Device Identifier Shelf Expiration Date Model / Serial / Lot Mohan Bone Biomet R 1x40 - [id number] Implanted:Qty: 2 on 06/15/2020 by Sanjay Murrieta MD at [facility] DEVICE Right: [employer] 07/29/2024 [id number] / / [id number] Patella All Poly Ply 41mm - [id number] Implanted:Qty: 1 on 06/15/2020 by Sanjay Murrieta MD at [facility] DEVICE Right: [employer] 06/28/2026 [id number] / / [id number] Comp Str Hyb St 14x+30 - [id number] Implanted:Qty: 1 on 06/15/2020 by Sanjay Murrieta MD at [facility] DEVICE Right: [employer] 11/26/2029 [id number] / / [id number] Stem Tib 5deg Szh Rt - [id number] Implanted:Qty: 1 on 06/15/2020 by Sanjay Murrieta MD at [facility] DEVICE Right: [employer] 01/26/2029 [id number] / / [id number] Comp Fem Ps Ccr Ps Std Sz12 Rt - [id number] Implanted:Qty: 1 on 06/15/2020 by Sanjay Murrieta MD at [facility] DEVICE Right: [employer] 06/28/2029 [id number] / / [id number] Asf Ps Ve 10mm 1012 Gh Rt - [id number] Implanted:Qty: 1 on 06/15/2020 by Sanjay Murrieta MD at [facility] DEVICE Right: [employer] 04/28/2021 [id number] / / [id number] Advance Directives * Full Code (Latest Code Status on File) Date Activated Date Inactivated Comments 06/15/2020 2:08 PM 06/17/2020 2:45 PM Care Teams Cigar Packer And Picker Relationship Specialty Start Date End Date Clinician, Not Found, [place] [address] PCP - General 06/23/20
== END 2024-06-02 12:51 | disposition home or self-care (01) ==
LOC: WOUND 12:50
PROVIDERS: PCP Family Medicine; Visit Provider Surgery
DX: I87.332 Chronic venous hypertension (idiopathic) with ulcer and inflammation of left lower extremity (principal); I89.0 Lymphedema, not elsewhere classified; L97.822 Non-pressure chronic ulcer of other part of left lower leg with fat layer exposed
CPT/HCPCS: 97597

== ENCOUNTER 2024-06-07 10:30 | Outpatient (RCR) | payer MEDICARE, BC, SELFPAY | END 2024-10-05 23:59 | disposition home or self-care (01) | PROVIDERS: PCP Family Medicine; Visit Provider Surgery | DX: I89.0 Lymphedema, not elsewhere classified (principal); L97.829 Non-pressure chronic ulcer of other part of left lower leg with unspecified severity; Z51.89 Encounter for other specified aftercare | CPT/HCPCS: 97140; 97165; 97535 ==

== ENCOUNTER 2024-06-09 12:49 | Outpatient (CLI) | payer MEDICARE, BC, SELFPAY ==
--- OUTSIDE RECORDS SUMMARY | 2024-06-09 12:51 | XMS_ITS | Clinical Summary ---
Author Organization [facility] Address [address] [address] Phone Care Team Providers Care Real Estate Operations Manager Name Role Phone Aba Boo MD Primary Care Provider [phone] Allergies No known active allergies Encounters Date Type Department Care Team Description 04/02/2024 3:26 PM CDT - 04/02/2024 4:45 PM CDT Emergency [facility] Emergency Department [address] [place] [address] Lee Frye, Pacemaker complications, initial encounter (Primary Dx) Discharge Disposition: Home and/or Self Care 04/02/2024 7:00 AM CDT Cardiac Device Remote [facility] [address] [place] [id number] Ancillary, [facility] Pacer Remote Monitor Sinoatrial node dysfunction (HCC) [...] age to complete this topic Care Teams Real Estate Operations Manager Relationship Specialty Start Date End Date Aba Boo MD [facility] & [address] [phone] PCP - General Family Medicine 04/02/24
--- OUTSIDE RECORDS SUMMARY | 2024-06-09 12:51 | XMS_ITS | Encounter Summary ---
Author Organization [facility] Address [address] [address] Phone Care Team Providers Care Machine Ii Trimmer Name Role Phone Aba Boo MD Primary Care Provider [phone] Reason for Visit * Reason Comments Cardiac Device Check Encounter Details Date Type Department Care Team (Latest Contact Info) Description 04/02/2024 7:00 AM CDT Cardiac Device Remote [facility] [address] [place] [id number] Ancillary, [facility] Pacer Remote Monitor Sinoatrial node [...] the original note were not included. 04/02/24 6745 Remote Impression and Plan Place of Service [place];[employer];In person Remote Monitoring;E.R.;ICD Final Impression Normal Remote Monitor with Events RVP > 40% NO Events/Comments In person care link from [facility] [facility]. Pt has been 100% AT/AF since 03/16/24 with ventricular rates 80-120s bpm for majority of time. Presenting egm supporting AT/AF VS 80-120 bpm. No ventricular events logged. 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 Updated Dr. Frye via secure chat. Pt's device is beeping due to unsuccessful [employer] Alert transmission. Pt needs to follow up with [facility] technical support and device clinic they follow with. Follow Up Plan follow-up as scheduled Plan of Care Full report under Media/CV tab Anticoagulation (No updated med list) Battery 2.8 yrs Atrial Fib [place] % 100 RVP % 4.3 Heart Rate [...] call notification and can be viewed in [employer]. Presenting rhythm: Associated attestation - Sanjay Alvarez [...] situ documented in this encounter Care Teams Machine Ii Trimmer Relationship Specialty Start Date End Date Aba Boo MD [facility] & [address] [phone] PCP - General Family Medicine 04/02/24 documented as of this encounter
--- OUTSIDE RECORDS SUMMARY | 2024-06-09 12:51 | XMS_ITS | Encounter Summary ---
Author Organization [facility] Address [address] [address] Phone Care Team Providers Care Registered Veterinary Technician Name Role Phone Aba Boo MD [...] on filedocumented in this encounter Care Teams Registered Veterinary Technician Relationship Specialty Start Date End Date Aba Boo MD [facility] & [address] [phone] PCP - General Family Medicine 04/02/24 documented as of this encounter
--- OUTSIDE RECORDS SUMMARY | 2024-06-09 12:51 | XMS_ITS | Encounter Summary ---
Author Organization [facility] Address [address] [address] Phone Care Team Providers Care Portfolio Accountant Name Role Phone Aba Boo MD Primary Care Provider Reason for Visit * Reason Comments Pacemaker Problem Encounter Details Date Type Department Care Team (Late st Contact Info) Description 04/02/2024 3:26 PM CDT - 04/02/2024 4:45 PM CDT Emergency [facility] Emergency Department [address] [place] [id number] Lee Frye, DO [address] [place] [address] [phone] Pacemaker complications, initial encounter (Primary Dx) Discharge [...] Code Departure Means Destination Home and/or Self Prison documented in this encounter ED Notes * [...] certainly considered. Pacemaker was interrogated. Per pacemaker residential sales representative the pacemaker is working appropriately. [...] Disposition ED Disposition Discharge Condition Stable Comment [facility] thanks you for allowing us to assist you with your healthcare needs. This document contains patient education materials and information regarding your injury/illness. *If you need copies of your x-rays for a f ollow up appointment please call [phone] to arrangefor brass pickler. If you had an IV in place [...] Primary documented in this encounter Care Teams Portfolio Accountant Relationship Specialty Start Date End Date Aba Boo MD [facility] [address] [place] [address] PCP - General Family Medicine 04/02/24 documented as of this encounter
--- OUTSIDE RECORDS SUMMARY | 2024-06-09 12:52 | XMS_ITS | Encounter Summary ---
Author Organization [email or web address] Address [address] [address] Care Team Providers Care Superintendent Landfill Operations Name Role Phone Clinician, Not Found MD Primary Care Provider Un available Reason for Visit * Reason Comments Questions Encounter Details Date Type Department Care Team (Late st Contact Info) Description 12/30/2023 Telephone [facility] [address] [place], [place] [address] Zakia Carrillo, INTERNET SALES ASSOCIATE, LINE DIRECTOR [address] [place] [address] Questions Social History Tobacco Use Types Packs/Day [...] [place] Erendira Prince - 12/30/2023 3:02 PM [...] can we send you a message in [employer]? No [Oil Dispenser/Vamp Stitcher: Relay to patient; We make every effort to get back to you sameday, however it may take 1-2 business days depending on the nature of the communication.] documented in this encounter Plan of Treatment Not on file documented as of this encounter Visit Diagnoses Not on filedocumented in this encounter Care Teams Superintendent Landfill Operations Relationship Specialty Start Date End Date Clinician, Not Found, [place] [address] PCP - General 06/23/20 documented as of this encounter
--- OUTSIDE RECORDS SUMMARY | 2024-06-09 12:52 | XMS_ITS | Clinical Summary ---
Author Organization [facility] Address [address] [place] [address] Care Team Providers Care Deputy Sheriff Court Services Name Role Phone Clinician, Not Found MD Primary Care Provider Un available Source Comments You are receiving this document as you are listed as the primary care provider,follow-up provider, or the patient has been referred to you for consultation.This is in compliance with the Medicare and[facility] EHR Incentive Program,which states Providers who transition their patient to another setting of careor provider of care or refers their patient to another provider of care shouldprovide summary care record for each transition of care or referral. [facility] Allergies No known active allergies Medications Medication [...] 020 Overview (06/15/2020): By Dr. Murrieta at [facility]. Ascending aorta dilation 06/15/2020 Overview (06/15/2020): [...] this topic Medical Devices Implanted Type Area Shipping Clerk/Admin Device Identifier Shelf Expiration Date Model / Serial / Lot Mohan Bone Biomet R 1x40 - [id number] Implanted:Qty: 2 on 06/15/2020 by Sanjay Murrieta MD at [facility] DEVICE Right: [employer] 07/29/2024 [id number] / / [id number] Patella All Poly Ply 41mm - [id number] Implanted:Qty: 1 on 06/15/2020 by Sanjay Murrieta MD at [facility] DEVICE Right: [employer] 06/28/2026 [id number] / / [id number] Comp Str Hyb St 14x+30 - [id number] Implanted:Qty: 1 on 06/15/2020 by Sanjay Murrieta MD at [facility] DEVICE Right: [employer] 11/26/2029 [id number] / / [id number] Stem Tib 5deg Szh Rt - [id number] Implanted:Qty: 1 on 06/15/2020 by Sanjay Murrieta MD at [facility] DEVICE Right: [employer] 01/26/2029 [id number] / / [id number] Comp Fem Ps Ccr Ps Std Sz12 Rt - [id number] Implanted:Qty: 1 on 06/15/2020 by Sanjay Murrieta MD at [facility] DEVICE Right: [employer] 06/28/2029 [id number] / / [id number] Asf Ps Ve 10mm 1012 Gh Rt - [id number] Implanted:Qty: 1 on 06/15/2020 by Sanjay Murrieta MD at [facility] DEVICE Right: [employer] 04/28/2021 [id number] / / [id number] Advance Directives * Full Code (Latest Code Status on File) Date Activated Date Inactivated Comments 06/15/2020 2:08 PM 06/17/2020 2:45 PM Care Teams Deputy Sheriff Court Services Relationship Specialty Start Date End Date Clinician, Not Found, [place] [address] PCP - General 06/23/20
--- OUTSIDE RECORDS SUMMARY | 2024-06-09 12:52 | XMS_ITS | Clinical Summary ---
Author Organization [employer] [facility] Address [place], [place] [address] Care Team Providers Care Supervisor Yard Name Role Phone Aba Boo MD Primary Care Provider + Destin Johnston MD Unavailable [phone] Nurses, Advanced Heart Failure Unavailable + Allergies [...] type, unspecified whether angina present, unspecified whether [place] or transplanted heart Take 1 Tablet (10 [...] daily. 05/14/20 24 024 Discontinued(*M edication adjustment) digoxin (LANOXIN) 125 mcg [...] fibrillation 10/15 ACP (advance care planning) 09/10/2011 Overview (09/10/2011): Patient has identified Health Care Agent(s): No [...] and secondary concerned persons: Spouse Alexus Centeno [phone] Daughter Zuri [phone] Hypothyroidism 09/10/2011 Atrial fibrillation Overview (12/07/2013): - 07/31/11: s/p DCCV - 09/09/11: Left MAZE with ligation of PETRA *post op afib treated with short term anticoagulation -12/06/2013 recurrent atrial fibrillation with ventricular rate 122bpm Ascending aorta dilation Overview (12/07/2013): -09/09/11: S/p Aortic Valve Sparing Root Repair with a 34 mm Valsalva Graft and Left Sided MAZE with Ligation of Left Atrial Appendage by Dr. Ashton. Resolved Problems Problem Noted Date Diagnosed Date Resolved Date Chronic HFrEF (heart failure with reduced ejection fraction) 02/17/2024 02/17/2024 Positive blood culture 10/18/202302/16 Hypotension 10/11/2023 02/17/2024 senior living (current) use of anticoagulants 09/18/2011 12/03/2015 Osteoarth NOS-ankle 04/22/2007 12/03/19 16 Hypertension (HTN) 6 A-fib 07/03/2011 Overview (06/29/2011): controlled on diltiazem Ascending aorta dilatation 1 11/26/2013 Overview (09/09/2011): 09/09/11: S/p Aortic Valve Sparing Root Repair with a 34 mm Valsalva Graft and Left Sided MAZE with Ligation of Left Atrial Appendage by Dr. Ashton. Hypothyroidism 02/17/2024 Encounters Date Type Department Care Team Description 06/09/2024 11:30 AM CDT Orders Only [facility] [address] [place] [address] Lab, Ale Lab 06/09/2024 Travel 06/08/2024 Orders Only [facility] Orthopedics [facility] [address] [place] [address] [place] [phone] Sanjay Lazaro MD <No scans attached> 06/08/2024 Telephone [facility] [place] [address] [place] [address] [place] [address] Jono Peters MD Appointment 06/02/2024 9:45 AM CDT Office Visit [facility] [place] [address] [place] [address] Sanjay Lazaro MD Hand Pain/problem (Right wrist numbness/tingling) 06/02/2024 Orders Only [facility] Orthopedics [facility] [address] [place] [address] [place] [phone] Sanjay Lazaro MD <No scans attached> 06/02/2024 Travel 05/27/2024 9:04 AM CDT Anesthesia Event [facility] [address] [place] [address] Erendira Velez MD Riley, Benjamin William, JAREN 05/27/2024 7:15 AM CDT - 05/27/2024 10:24 AM CDT Hospital Encounter [facility] [address] [place] [address] Seamus Cole MD Atrial fibrillation, persistent (HC) Discharge Disposition: Home Self Care 05/27/2024 Travel 05/24/2024 8:30 AM CDT Office Visit [address] [place] [address] Iva Johnston CNS Follow Up (CHF FOLLOWUP /POST ABLATION DONE ON 05/11... Post modified diuretic with CMP post ablation/LABS PRIOR IN [place]/I42.9 (ICD-10-CM) - Primary cardiomyopathy (HC)/I50.23 (ICD-10-CM) - Acute on chronic HFrEF (heart failure with reduced ejection fraction) (HC) /PT states feeling ok./Went into afib a couple days later going back on ) 05/24/2024 Telephone [facility] Orthopedics [facility] [address] [place] [address] [address] [place] [phone] Riaz Peterson MD Error-please disregard 05/24/2024 Travel 05/20/2024 12:00 PM CDT Orders Only [facility] [address] [place] [address] Lab, [facility] Lab 05/20/2024 Telephone [facility] [address] [facility] [address] [place] [phone] Seamus Cole MD Atrial Fibrillation 05/20/2024 Travel 05/19/2024 Telephone [facility] [address] [facility] [address] [place] [phone] Destin Johnston MD Medication Management 05/19/2024 Telephone [facility] [address] [phone] Marquis Santana MD Medication Management 05/19/2024 Telephone [facility] [address] [phone] Susana Joyner I, KELSEA Device Check 05/19/2024 Telephone [facility] [address] [address] Marquis Santana MD Device Check 05/19/2024 Telephone [facility] [address] [phone] Erendira Sotomayor, NERVE SPECIALIST Weight 05/14/2024 9:37 AM CDT Anesthesia Event [facility] [address] [place] [address] Aba Valerio MD 05/14/2024 7:10 AM CDT - 05/14/2024 11:40 AM CDT Hospital Encounter [facility] [address] [place] [address] Seamus Cole MD Atrial fibrillation, persistent (HC) Discharge Disposition: Home Self Care 05/14/2024 Travel 05/13/2024 9:20 AM CDT Orders Only [facility] [address] [facility] [address] [place] [address] Lab 05/13/2024 Telephone [facility] [address] [address] Martha Warner RN 05/13/2024 Telephone [facility] [address] [phone] Marquis Santana MD Results (LFT and TSH results on Amiodarone) 05/12/2024 Travel 05/11/2024 7:46 AM CDT Anesthesia Event [facility] [address] [place] [address] Alan Yao DO 05/11/2024 5:41 AM CDT - 05/11/2024 5:50 PM CDT Hospital Encounter [facility] [address] [address] Marquis Santana MD Kroll, Sharon Marie, CRNA Primary cardiomyopathy (HC) (Primary Dx); Acute on chronic HFrEF (heart failure with reduced ejection fraction) (HC) Discharge Disposition: Home Self Care 05/11/2024 Travel 05/04/2024 Telephone [facility] [address] [place] [phone] Marquis Santana MD Medication Management 05/04/2024 Telephone [facility] [address] [place] [address] Guadalupe Rosado RN Appointment 05/03/2024 Telephone [facility] [address] [address] Marquis Santana MD Concerns (AFIB) 04/30/2024 12:03 PM CDT Anesthesia Event [facility] [address] [address] Aba Valerio MD Wilson, Timothy Eric, CRNA 04/30/2024 10:08 AM CDT - 04/30/2024 3:03 PM CDT Hospital Encounter [facility] [address] [place] [address] Marquis Santana MD Discharge Disposition: Home Self Care 04/30/2024 Travel 04/27/2024 10:15 AM CDT Ancillary Procedure [address] [address] 04/27/2024 9:45 AM CDT Office Visit [address] [address] Riaz Peterson MD Recheck (EP, non-displaced left femoral neck fracture DOI:02/11/2024, x-rays) 04/27/2024 Travel 04/25/2024 Telephone [facility] [address] [facility] [address] [place] [address] Dennis Barahona RN 04/22/2024 1:20 PM CDT Orders Only [facility] [address] [facility] [place] [address] Lab, Ale Lab 04/22/2024 Travel 04/20/2024 Telephone [facility] [address] [facility] [address] [place] [phone] Marquis Santana MD Atrial Fibrillation 04/19/2024 9:05 AM CDT Anesthesia Event [facility] [address] [place] [address] Marco Aguiar MD Wilson, Timothy Eric, CRNA 04/19/2024 7:18 AM CDT - 04/19/2024 10:53 AM CDT Hospital Encounter [facility] [address] [place] [address] David Ugarte, LIDYA Maldonado, MD Robert Robles Sarah Jean, CRNA Atrial fibrillation, unspecified type (HC) (Primary Dx) Discharge Disposition: Home Self Care 04/19/2024 Travel 04/16/2024 7:06 AM CDT - 04/16/2024 10:07 AM CDT Hospital Encounter [facility] [address] [address] Marquis Santana MD Wilson, Timothy Eric, CRNA Obesity, unspecified classification, unspecified obesity type, unspecified whether serious comorbidity present (Primary Dx); Chronic systolic heart failure (HC) Discharge Disposition: Home Self Care 04/16/2024 7:05 AM CDT Anesthesia Event [facility] [address] [address] Placido Chowdhury CRNA 04/16/2024 Travel 04/15/2024 Orders Only [facility] Scanner 1 scan: (1-Ord) SHAHAB 04/15/2024 Telephone [facility] [address] [place] [address] [place] [address] Lianna Dominguez RN Device Check (AF alert) 04/14/2024 Telephone [facility] [address] [place] [address] [place] [address] Destin Johnston MD 04/13/2024 4:20 PM CDT Office Visit [facility] [address] [place] [address] Rosalie Senior NP Heart Problem (Paroxysmal atrial fibrillation); Primary MD (Aba Boo MD/) 04/13/2024 8:00 AM CDT Office Visit [facility] [address] [place], [place] [phone] Destin Johnston MD CV Heart Failure Est (STAT - IN PERSON F/U VISIT. LABS PRIOR @ [facility] /Acute on chronic HFrEF (heart failure with reduced ejection fraction) //pt states he is in a-fib. He got converted on and went to primary yesterday to confirm he is in A-fib still.//) 04/13/2024 Travel 04/10/2024 Telephone [facility] [address] [place] [address] [place] [address] Marquis Banda RN Device Check (Patient thinks he back in AF) 04/08/2024 2:40 PM CDT Anesthesia Event [facility] [address] [place] [address] Zion Leigh MD 04/08/2024 12:19 PM CDT - 04/08/2024 3:58 PM CDT Hospital Encounter [facility] [address] [place], [place] [phone] Marquis Santana MD Wilson, Timothy Eric, Zion Arellano MD Persistent atrial fibrillation (HC) (Primary Dx) Discharge Disposition: Home Self Care 04/08/2024 Travel 04/07/2024 Telephone [facility] [address] [place] [address] [place] [address] Marquis Santana MD Schedule Cardioversion 04/05/2024 10:30 AM CDT Office Visit [address] [address] Kathleen Boyer PA Follow Up (follow up) 04/05/2024 Travel 04/02/2024 Telephone [facility] [address] [place] [address] [place] [address] Susana Joyner I, RN Device Check 04/02/2024 Telephone [facility] [address] [place] [address] [place] [address] Destin Johnston MD Concerns (Defib beeping ) 03/30/2024 9:55 AM CDT Ancillary Procedure [address] [address] 03/30/2024 9:50 AM CDT Ancillary Procedure [address] [address] 03/30/2024 9:30 AM CDT Office Visit [address] [address] Riaz Peterson MD Hip Pain/problem (left hip pain); Chest Injury (left side rib pain) 03/30/2024 Travel 03/29/[address] [address] Riaz Peterson MD Questions 03/22/2024 Telephone [facility] [address] [place] [address] [place] [address] Destin Johnston MD Follow Up (BP update) 03/19/2024 Orders Only [facility] [address] [facility] [address] [place] [phone] Destin Johnston MD <No scans attached> 03/15/2024 10:28 PM CDT - 03/19/2024 11:22 AM CDT Hospital Encounter [facility] [address] [place] [address] Alan De Santiago MD Kiberenge, MD Kaleb Monroy, MD Keyla Mcgarry, DO Gerardo Lundberg, Lee Kennedy MD [facility] Hospitalists Of Left displaced femoral neck fracture (HC) (Primary Dx); Closed fracture of multiple ribs of left side, sequela; Closed fracture of neck of left femur with routine healing, subsequent encounter; Acute on chronic HFrEF (heart failure with reduced ejection fraction) (HC) Discharge Disposition: Home Self Care 03/15/2024 6:00 PM CDT Hospital Encounter [facility] [address] [place] [address] [facility] Of 03/15/2024 1:49 PM CDT Anesthesia Event [address] [address] Fatemeh Hunt CRNA 03/15/2024 12:13 PM CDT - 03/15/2024 9:18 PM CDT Emergency [facility] [address] [place] [address] Janina Valero MD Ball, Julieanne Patricia, MD Closed fracture of multiple ribs of left side, initial encounter (Primary Dx); Hypoxia; Hypotension, unspecified hypotension type; Laceration of multiple sites of left lower extremity, initial encounter Discharge Disposition: Crit Acc Hosp w Planned Readmission 03/15/2024 Telephone [facility] [address] [facility] [address] [place] [phone] Erendira Sotomayor NP Letter (Request letter faxed on 03-12-24 be re-faxed as didn't receive the whole document.) 03/15/2024 Travel 03/12/2024 Telephone [facility] [address] [facility] [address] [place] [address] Erendira Sotomayor NP Questions 03/11/2024 8:35 AM CDT Ancillary Procedure [facility] [address] [place] [address] [facility] [address] [facility] [address] [place] [address] 03/11/2024 8:30 AM CDT Office Visit [facility] [address] [place], [place] [address]e [facility] [address] [place] [address] Ellie Martinez PA Hip Pain/problem (Non-operative follow-up visit: non-displaced left femoral neck fracture) 03/11/2024 Travel 03/10/2024 Telephone [facility] [address] [facility] [address] [place] [address] Erendira Sotomayor NP Medication Management 03/09/2024 Telephone [facility] [address] [facility] [address] [place] [address] Riaz Peterson MD from Last 3 Months Immunizations Name Administration [...] Description 06/10/2024 8:00 AM CDT Office Visit [facility] [address] [place] [address] [address] [place] [address] Destin Johnston MD [address] [facility] [address] [place] [address] 06/16/2024 9:15 AM CDT Office Visit [facility]oped[facility] [address] [facility] [address] [place] [address] Riaz Peterson MD [address] [facility] [address] [place] [address] 06/25/2024 Cardiac Device Check [facility] [phone] 06/29/2024 2:20 PM CDT Office Visit [facility] [address] [place] [address] Rosalie Senior NP [address] [place] [address] 07/09/2024 12:01 PM CDT Hospital Encounter [facility] [address] [place] [address] Sanjay Lazaro MD [address] [facility] 230 [place] [address] 07/09/2024 12:01 PM CDT - 07/09/2024 1:20 PM CDT Surgery [facility] [address] [place] [address] Sanjay Lazaro MD [address] [facility] [facility] [address] [place] [address] RIGHT OPEN CARPAL TUNNEL RELEASE. 07/22/2024 9:45 AM CDT Office Visit [facility] Orthopedics [facility] [address] [facility] [address] [place] [phone] Sanjay Lazaro MD [address] [facility] [address] [place] [address] Scheduled Procedures Name Priority Associated Diagnoses Date/Ti me RELEASE CARPAL TUNNEL Elective Carpal tunnel syndrome of right wrist 07/09/2024 12:01 PM CDT Health Maintenance Due Date Last Done Comments Tdap 1961 Hepatitis C screening for ag e 18-79 1968 Tetanus booster 1970 Zoster (shingles) series for age 50+ (2 of 3) 08/19/2013 06/24/2013 Colonoscopy through age 75 08/07/201608/07 [facility] Pneumococcal series for age 65+ (2 of 2 - PCV) 11/27/2016 11/28/2015 Depression screening for age 12+ 12/08/2019 12/08/19 19, 11/28/2015 Lipids for age 45-75 01/07/2023 01/07/2018, 03/03/2017, 11/28/2015, Additional history exists COVID-19 vaccine series ( season) 2024 06/27/2021 Influenza for age 65+ 05/30/2024 06/24/2013 Medicare Wellness for age 65+ 11/10/2024 11/10/2023, 11/28/2015 BMI (ht and wt on same day) for age 18+ 05/24/2025 05/24/2024, 04/13/2024, 04/13/2024, Additional history exists AAA screening age 65-74 Completed 03/15/2024 Medical Devices Implanted Type Area Qa Auditor Device Identifier Shelf Expiration Date Model / Serial / Lot Graft Valsalva 34mm - [id number] Implanted:Qty: 1 on 09/09/2011 at [facility] [employer] [id number] / / Procedures Procedure Name Priority Date/Time Associated Diagnosis Comments PRO-BNP Routine 06/09/2024 11:43 AM CDT Primary cardiomyopathy (HC) Acute on chronic HFrEF (heart failure with reduced ejection fraction) (HC) BASIC METABOLIC PANEL Routine 06/09/2024 11:43 AM CDT Primary cardiomyopathy (HC) Acute on chronic HFrEF (heart failure with reduced ejection fraction) (HC) EP CARDIOVERSION Routine 05/27/2024 9:10 AM CDT [...] 12 LEAD Preop 04/16/2024 7:31 AM CDT SCAN-ELECTROMYOGRAM EMG 04/15/2024 12:00 AM CDT PRO-BNP Timed 04/08/2024 2:57 PM [...] 21 AM CDT HEPATIC FUNCTION PANEL CARLOS 03/19/2024 4:50 AM CDT BASIC METABOLIC PANEL CARLOS 03/19/2024 4:50 AM CDT CBC W PLT NO DIFF CARLOS 03/19/2024 4:5 0 AM CDT SCAN-CARDIAC STRIP 03/19/2024 12 :01 AM CDT GLUCOSE METER Timed 03/18/2024 8:36 PM CDT GLUCOSE METER Timed 03/18/2024 5:46 PM CDT GLUCOSE METER Timed 03/18/2024 12:29 PM CDT GLUCOSE METER Timed 03/18/2024 8:03 AM CDT HEPATIC FUNCTION PANEL CARLOS 03/18/2024 5:57 AM CDT BASIC METABOLIC PANEL CARLOS [...] 4:18 AM CDT HEPATIC FUNCTION PANEL CARLOS 03/17/2024 4:18 AM CDT BASIC METABOLIC PANEL CARLOS 03/17/2024 4:18 AM CDT CBC W PLT NO DIFF CARLOS 03/17/2024 4:1 8 AM CDT GLUCOSE METER Timed 03/16/2024 10:04 PM CDT CALCIUM IONIZED HOSPITAL DRAW ONLY Timed 03/16/2024 10:00 PM CDT SCAN-CARDIAC STRIP 03/16/2024 7: 21 PM CDT GLUCOSE METER Timed 03/16/2024 5:52 PM CDT URINALYSIS MICROSCOPIC Timed 03/16/2024 4:32 PM CDT UA W/ SEDIMENT EXAM REFLEXED PER CRITERIA Today 03/16/2024 4:32 PM CDT BLOOD CULTURE Today 03/16/2024 4:08 PM CDT PROCALCITONIN CARLOS 03/16/2024 4:08 PM CDT BLOOD CULTURE Today 03/16/2024 4:07 PM CDT ICD ANALYSIS DUAL WITHOUT REPROGRAM Routine 03/16/2024 3:32 PM CDT EXTRA TUBE LIGHT GREEN Today 03/16/2024 1:23 PM CDT BLOOD GAS,VENOUS STAT 03/16/2024 1:23 PM CDT FACTOR 10 CHROMOGENIC CRALOS 03/16/2024 1:22 PM CDT HEMOGLOBIN CARLOS 03/16/2024 [...] 5:02 AM CDT HEPATIC FUNCTION PANEL CARLOS 03/16/2024 5:01 AM CDT BASIC METABOLIC PANEL CARLOS [...] PELVIS W STAT 03/15/2024 2:02 PM CDT [facility] AN IV START Routine 03/15/2024 1:33 PM CDT [facility] AN IV START Routine 03/15/2024 1:33 PM CDT [facility] AN IV START Routine 03/15/2024 1:33 PM CDT [facility] AN IV START Routine 03/15/2024 1:33 [...] Recently Relevant to Health Maintenance Results * (ABNORMAL) PRO-BNP (06/09/2024 11:43 AM CDT) Only the most recent of5 resultswithin the time period is included. [facility] PRO-BNP 730(H) <125 pg/mL 06/09/2024 12:42 PM CDT [facility] Blood BLOOD SPECIMEN / Unknown Venipuncture / Unknown 06/09/2024 11:43 AM CDT 06/09/2024 11:45 AM CDT [facility] - 06/09/2024 12:42 PM CDT The following cut-points have been [...] 72% for acute congestive heart failure. ? Iva Johnston [facility] SEND OUTS [facility] [address] [place] [address] * (ABNORMAL) BASIC METABOLIC PANEL (06/09/2024 11:43 AM CDT) Only the most recent of11 resultswithin the time period is included. SODIUM 142 136 - 145 mmol/L 06/09/2024 12:42 PM [facility] POTASSIUM 3.9 3.5 - 5.1 mmol/L 06/09/2024 12:42 PM [facility] CHLORIDE 97(L) 98 - 107 mmol/L 06/09/2024 12:42 PM [facility] CO2,TOTAL 36(H) 22 - 29 mmol/L 06/09/2024 12:42 PM [facility] ANION GAP 9 5 - 18 06/09/2024 12:42 PM [facility] GLUCOSE 92 70 - 99 mg/dL 06/09/2024 12:42 PM [facility] CALCIUM 9.7 8.8 - 10.2 mg/dL 06/09/2024 12:42 PM [facility] BUN 39(H) 8 - 23 mg/dL 06/09/2024 12:42 PM [facility] CREATININE 1.31(H) 0.70 - 1.20 mg/dL 06/09/2024 12:42 PM [facility] BUN/CREAT RATIO 30(H) 10 - 20 12:42 PM [facility] eGFR 57(L) >90 mL/min/1.7 3m2 06/09/2024 12:42 PM [facility] Comment:As of 2021, eG FR is calculated by the CKD-EPI creatinine equation without race adjustment. ??eGFR can be influenced by muscle mass, exercise, and diet. ??The reported eGFR is an estimation only and is only applicable if the renal function is stable. Blood BLOOD SPECIMEN / Unknown Venipuncture / Unknown 06/09/2024 11:43 AM CDT 06/09/2024 11:45 AM CDT Iva Johnston DREDGE WORKER CHEMISTRY [facility] [address] [place] [address] * EP CARDIOVERSION (05/27/2024 9:10 AM CDT) Anatomical Region Laterality Modality X-Ray Angiograph y Narrative 05/27/2024 9:10 AM CDT Kathi Mcmanus PA ? 05/27/2024 ??9:11 AM [facility] Cardiac Electrophysiology Procedure Note DOS: 05/27/2024 Brief History: ??Rain Centeno is a pleasant 73 y.o. with history of atrial arrhythmias who now presents to CVOP NPO since midnight for direct current cardioversion. ??Anticoagulated with Xarelto 20 mg daily and no missed doses for at least 3 consecutive weeks. ?? Procedure Description: ??Time out was called. ??Brief general anesthesia by anesthesia service. ??Cardioversion patches were placed in an anterior/posterior position. ??One synchronized 200 J shock was delivered with successful holiness AP-VS rhythm, VRs 70s. ?? Complications: ??No acute complications. ?? Plan: ?? Rain Centeno is now recovering from sedation and anticipate discharge home later today. Dr. Cuadra was the collaborating physician throughout the time services were performed. Kathi Mcmanus PA-C [facility] Cardiac Electrophysiology Services Seamus Cole MD CV IMAGING * EKG (05/27/2024 9:09 AM CDT) Only [...] NOW QTc 514 ms BEYOND NOW P Remlap degrees BEYOND NOW R Remlap -37 degrees BEYOND NOW T Remlap 71 degrees BEYOND NOW 05/27/2024 9:09 AM CDT 05/28/2024 1:34 PM CDT Narrative BEYOND NOW - 05/28/2024 1:34 PM CDT Test Indication: POST DCCV Kathi ARMAS EKG ORD BEYOND NOW [place], [place] * POTASSIUM,ISTAT (05/27/2024 8:04 AM CDT) Only the most recent of6 resultswithin the time period is included. Pathologist [facility] POTASSIUM, POCT 3.7 3.5 - 5.0 mmol/L 05/28/2024 8:30 AM CDT [facility] Blood BLOOD SPECIMEN / Unknown 05/27/2024 8:04 AM CDT 05/28/2024 8:30 AM CDT Seamus Cole MD CHEMISTRY Performing Organization Address City/[facility]/ZIP Co de Phone Number [facility] [address] [place] [address], * SCAN-CARDIAC STRIP (05/27/2024 12:00 AM CDT) Narrative 05/27/2024 12:00 AM CDT Ordered by an unspecified provider. Other Clinical Staff OTHER * ALT (SGPT) (05/20/2024 11:09 AM CDT) Only the most recent of3 resultswithin the time period is included. [facility] Center ALT (SGPT) 28 10 - 50 IU/L 05/20/2024 2:49 PM CDT [facility] Blood BLOOD SPECIMEN / Unknown Venipuncture / Unknown 05/20/2024 11:09 AM CDT 05/20/2024 11:10 AM CDT Marquis Santana MD CHEMISTRY Performing Organization Address City/[facility]/ZIP Co de Phone Number [facility] [address] [place] [address] [phone] * AST (SGOT) (05/20/2024 11:09 AM CDT) Only the most recent of3 resultswithin the time period is included. Pathologist [facility] AST (SGOT) 42 10 - 50 IU/L 05/20/2024 2:39 PM CDT [facility] Blood BLOOD SPECIMEN / Unknown Venipuncture / Unknown 05/20/2024 11:09 AM CDT 05/20/2024 11:10 AM CDT Marquis Santana MD CHEMISTRY [facility] [address] [place], [place] [id number] * EP CARDIOVERSION (05/14/2024 9:46 AM CDT) Anatomical Region Laterality Modality X-Ray Angiograph y Narrative 05/14/2024 9:46 AM CDT Seamus Cole MD ? 05/17/2024 ??7:41 AM [facility] Cardiac Electrophysiology Procedure Note DOS: 05/14/2024 Brief [...] ??One 250 joules synchronized shock delivered with holiness of an AV paced rhythm. ?? Complications: ??No acute complications. ?? Plan: ??Mr. Centeno is now recovering from sedation and would anticipate discharge home later today. Dr. Cole was readily available to provide assistance and direction throughout the time services were performed Esther Macdonald NP ?? [facility] Cardiac Electrophysiology Services Seamus Cole MD Cardiac Arrhythmia Section [facility] Seamus Cole MD CV IMAGING * SCAN-CARDIAC STRIP (05/14/2024 12:00 AM CDT) Narrative 05/14/2024 12:00 AM CDT Ordered by an unspecified provider. Other Clinical Staff OTHER * MAGNESIUM (05/13/2024 8:42 AM CDT) MAGNESIUM 1.9 1.6 - 2.4 mg/dL 05/14/2024 9:14 AM CDT [facility] Blood BLOOD SPECIMEN / Unknown Venipuncture / Unknown 05/13/2024 8:42 AM CDT 05/13/2024 8:42 AM CDT Esther Macdonald NP CHEMISTRY Performing Organization Address City/[facility]/ZIP Co de Phone Number [facility] [address] [place] [address], * SCAN-CARDIAC STRIP (05/11/2024 1:28 PM CDT) Scanner OTHER * (ABNORMAL) ACTIVATED CLOTTING TIME [id number] ACT (05/11/2024 11:38 AM CDT) Only the most recent of6 resultswithin the time period is included. [facility] Signature ACTIVATED CLOTTING TIME, POCT 174(H) 74 - 125 sec 05/11/2024 11:52 AM CDT [facility] Blood BLOOD SPECIMEN / Unknown 05/11/2024 11:38 AM CDT 05/11/2024 11:52 AM CDT Marquis Santana MD HEMATOLOGY Performing Organization Address [facility] Co de Phone Number [facility] [address] [place] [address], * EP STUDY /ABLATION (05/11/2024 8:13 AM CDT) Anatomical Region Laterality Modality X-Ray Angiograph y, X-Ray Angiography 05/11/2024 8:13 AM CDT Narrative Transcriptions Marquis Santana MD - 05/11/2024 5:20 PM CDT [facility] Electrophysiology Procedure Report Name: RAIN CENTENO Event Date: 05/11/2024 Excellian ID #: [id number] Date: 1950 Gender: Male Age: 73 [facility] #: [id number] Procedure Performed By: MARQUIS SANTANA [facility] Referring Physician: Summary / Conclusions 1. Complex [...] ? Same as Pre-operative diagnosis Consent & Genoa Protocol Genoa protocol was followed. TIME OUT conducted just [...] micropuncturetechnique, two sheaths were introduced (one 8 Cymraes and one 7 Cymraes)into the right femoral vein, one 9 Cymraes sheath was introduced into theleft femoral vein. [...] the electrophysiology study and ablation procedure. Utilizing [employer] Affair[employer] needle, the puncture was executed under the [...] ACT. 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 Total Flouro Dose: 7 mGy Transseptal Mean LA Pressure: 20 mmHg Staff Name Role Marquis Santana [employer] Defense Art[employer] Officer Mary Juarez RN Nurse Will Dumont CVT Monitor Elayne Cano CVT Scrub Mo Clancy EPClinton Channel Man Medications Ordered and Administered Start Time Stop Time Medication Dose Units Route Ordered By Given By 08:15 0.25% Bupivicaine 10 mL Subcut MD Marquis Melton MD 08:16 1% Lidocaine Hydrochloride 10 mL Subcut MD Marquis Melton MD 08:19 0.25% Bupivicaine 5 mL Subcut MD Marquis Melton MD 08:19 1% Lidocaine Hydrochloride 5 mL Subcut MD Marquis Melton MD 08:25 Heparin 88792 Units IV MD Mary Melton, KELSEA 08:37 Heparin 2000 Units IV MD Mary Melton, KELSEA 09:23 Heparin 6000 Units IV MD Mary Melton, KELSEA 09:51 Heparin 3000 Units IV MD Mary Melton, KELSEA 10:25 Heparin 1000 Units IV MD Mary [...] with status of Final Marquis Santana MD Air Defense Artillery Officer [facility] [address] [place] [address] (p) [phone](f) Marquis Santana MD CV IMAGING * HCHG [...] teeth Difficulty: 0 (not difficult) Estrella Huffman PREPARATION SUPERVISOR CANNING ANESTHESIA PX NOTE ORDERABLES * (ABNORMAL) PLATELET ESTIMATE (05/11/2024 6:13 AM CDT) PLATELET ESTIMATE Platelets Clumped Unable to Determine(A) Adequate, No estimate 05/11/2024 7:24 AM CDT [facility] Blood BLOOD SPECIMEN / Unknown Venipuncture / Unknown 05/11/2024 6:13 AM CDT 05/11/2024 6:22 AM CDT Marquis Santana MD [facility]OLOGY [facility] [address] [place] [address], * (ABNORMAL) CBC with Platelet no Diff (05/11/2024 6:13 AM CDT) Only the most recent of6 resultswithin the time period is included. WHITE BLOOD COUNT 8.5 4.5 - 11.0 thou/cu mm 05/11/2024 7:24 AM CDT [facility] RED BLOOD COUNT 4.01(L) 4.30 - 5.90 mil/cu mm 05/11/2024 7:24 AM T [facility] HEMOGLOBIN 11.5(L) 13.5 - 17.5 g/dL 05/11/2024 7:24 AM T [facility] HEMATOCRIT 37.5 37.0 - 53.0 % 05/11/2024 7:24 AM T [facility] MCV 94 80 - 100 fL 05/11/2024 7:24 AM T [facility] MCH 28.7 26.0 - 34.0 pg 05/11/2024 7:24 AM T [facility] MCHC 30.7(L) 32.0 - 36.0 g/dL 05/11/2024 7:24 AM CDT [facility] RDW 15.6(H) 11.5 - 15.5 % 05/11/2024 7:24 AM CDT [facility] PLATELET COUNT 05/11/2024 7:24 AM CDT [facility] Comment: Platelet clumped, unable to determine This is a corrected result. Previously reported as 108 thou/cu mm with reference range 140-440 thou/cu mm on 05/11/2024 at 0723 CDT MPV 05/11/2024 7:24 AM CDT [facility] Comment: Unable to determine This is a corrected result. Previously reported as 11.6 fL with reference range 6.5-11.0 fL on 05/11/2024 at 0723 CDT NRBC 0.0 % 05/11/2024 7:24 AM CDT [facility] ABS NRBC 0.0 thou /cu mm 05/11/2024 7:24 AM CDT [facility] Blood BLOOD SPECIMEN / Unknown Venipuncture / Unknown 05/11/2024 6:13 AM CDT 05/11/2024 6:22 AM CDT Marquis Santana MD HEMATOLOGY Performing Organization Address City/[facility]/ZIP Co de Phone Number [facility] [address] [place] [address], [place] * EXTRA TUBE GOLD/SST (05/11/2024 6:10 AM CDT) Blood BLOOD SPECIMEN / Unknown Extra Tube / Unknown 05/11/2024 6:10 AM CDT 05/11/2024 6:23 AM CDT Marquis Santana MD LABORATORY Performing Organization Address City/[facility]/ZIP Co de Phone Number [facility] [address] [place] [address], [place] * SCAN-CARDIAC STRIP (05/11/2024 12:00 AM [...] of sustained monomorphic VT, PAF Primary MD: Emaneul Bhat MD Implanting MD: Marquis Santana MD DEVICE DATA Medtronic Evera MRI XT DR [id number] SN: [id number] Implant Date 08/03/2019 LEAD DATA Atrial Lead: Medtronic 5076 - 52 MRI SN: [id number] Implant Date 08/03/2019 RV Lead: Medtronic 6935M - 62 MRI SN: [id number] Implant Date 08/03/2019 Tachy therapy hx: none 01/2023 Presence of a glassed feedthrough creates increased risk of unexpected HV arching within the header during therapy delivery. All HV pathways have been programmed B>AX. Hx: ??DCCV 04/30/24 DCCV ??04/19/24 Location of evaluation: [facility] P/R 18 post Cardioversion Reason for [...] burden for the past 10 days. ?? Xarelto is active on medication list. ? [...] past two weeks from his device: per cnc lathe programmer reason for alert was that it was unable to send a transmission. ??Patient and family confirm that bedside monitor is plugged in. ??Provided family with [place] [employer] Support number in case this happens again. Follow up: as previously scheduled [facility] remote on 06/25/24 prior to seeing Rosemarie Senior NP in [place] Routine follow up: Every 3 - 4 months via [facility] remote with annual [place] or clinic with Dr. Santana each February. Susana Joyner, RN Nurse Clinician II [facility] Pacemaker/ICD Clinic [phone] Marquis Santana MD CARDIAC SERVICES ORD * EP CARDIOVERSION (04/30/2024 12:06 PM CDT) Anatomical Region Laterality Modality X-Ray Angiograph y Narrative 04/30/2024 12:06 PM CDT Nora Lara NP ? 04/30/2024 12:21 PM [facility] Cardiac Electrophysiology Procedure Note DOS: 04/30/2024 Brief [...] ??One 200 joules synchronized shock delivered with holiness of sinus rhythm. ?? Complications: ??No acute complications. ?? Plan: ?? Rain Centeno is now recovering from sedation and would anticipate discharge home later today. Dr. Juarez was readily available to provide assistance and direction throughout the time services were performed Nora Lara NP [facility] Cardiac Electrophysiology Marquis Santana MD CV IMAGING [...] This radiology exam was performed at the [facility] in [place] and interpreted by Riaz Peterson MD. HISTORY: [...] - 4.20 uIU/mL 04/22/2024 2:25 PM CDT [facility] Blood BLOOD SPECIMEN / Unknown Venipuncture / Unknown 04/22/2024 1:29 PM CDT 04/22/2024 1:29 PM CDT Narrative [facility] - 04/22/2024 2:25 PM CDT In Adults, TSH values between 5.00 and 10.00 uIU/ml do not necessarily indicate the presence of Hypothyroidism. Correlation with clinical findings such as presence of goiter and/or Thyroperoxidase (TPO) Antibody may be helpful. For more information please refer to YU 2004; 291: 228-238. Marquis Santana MD CHEMISTRY [facility] [address] [place] [address] * SCAN-CARDIAC STRIP (04/19/2024 12:00 AM CDT) Narrative 04/19/2024 12:00 AM CDT Ordered by an unspecified provider. Other Clinical Staff OTHER * SCAN-ELECTROMYOGRAM EMG (04/15/2024 12:00 AM CDT) Scanner OTHER * EP CARDIOVERSION (04/08/2024 2:44 PM CDT) Anatomical Region Laterality Modality X-Ray Angiograph y Narrative 04/08/2024 2:44 PM CDT Seamus Cole MD ? 04/08/2024 ??4:11 PM [facility] Cardiac Electrophysiology Procedure Note DOS: 04/08/2024 Brief [...] time services were performed David Ugarte NP [facility] Cardiac Electrophysiology Seamus Cole MD Cardiac Arrhythmia Section [facility] Marquis Santana MD CV IMAGING * SCAN-CARDIAC [...] @ Alonzo ??2 2023 ??3:21PM (Electronically Signed) [email or web address] Narrative 03/30/2024 3:21 PM CDT For Patients: [...] @ Mar 30 2024 3:21PM (Electronically Signed) [email or web address] Riaz Peterson MD GENERAL IMAGING * SCAN-CARDIAC STRIP (03/19/2024 9:21 AM CDT) Scanner OTHER * (ABNORMAL) HEPATIC FUNCTION PANEL (03/19/2024 4:50 AM CDT) Only the most recent of4 resultswithin the time period is included. ALBUMIN 3.3(L) 4.0 - 4.9 g/dL 03/19/2024 5:44 AM CDT [facility] PROTEIN,TOTAL 6.1 6.0 - 8.0 g/dL 03/19/2024 5:44 AM CDT [facility] BILIRUBIN,TOTAL 0.5 0.0 - 1.2 mg/dL 03/19/2024 5:44 AM CDT [facility] BILIRUBIN,DIRECT 0.2 0.0 - 0.3 mg/dL 03/19/2024 5:44 AM CDT [facility] BILIRUBIN,INDIRE CT 0.3 0.2 - 0.8 mg/dL 03/19/2024 5:44 AM CDT [facility] ALK PHOSPHATASE 122 40 - 129 IU/L 03/19/2024 5:44 AM CDT [facility] ALT (SGPT) 37 10 - 50 IU/L 03/19/2024 5:44 AM CDT [facility] AST (SGOT) 56(H) 10 - 50 IU/L 03/19/2024 5:44 AM CDT [facility] Blood BLOOD SPECIMEN / Unknown Venipuncture / Unknown 03/19/2024 4:50 AM CDT 03/19/2024 5:14 AM CDT Varghese Mckenna MD CHEMISTRY Performing Organization Address [facility] Co de Phone Number [facility] [address] [address], [place] * SCAN-CARDIAC STRIP (03/19/2024 12:01 AM CDT) Scanner OTHER * (ABNORMAL) GLUCOSE METER (03/18/2024 8:36 PM CDT) Only the most recent of13 resultswithin the time period is included. GLUCOSE METER 172(H) 65 - 100 mg/dL 03/18/2024 11:27 PM CDT [facility] Blood BLOOD SPECIMEN / Unknown 03/18/2024 8:36 PM CDT 03/18/2024 11:27 PM CDT Lee Carrillo MD CHEMISTRY Performing Organization Address [facility] Co de Phone Number [facility] [address] [place] [phone], [place] * [place] ARTERIAL LOWER EXTREMITY LEFT [...] AM CDT 03/17/2024 4:35 AM CDT Narrative [facility] - 03/17/2024 10:19 PM CDT In Adults, TSH values between 5.00 and 10.00 uIU/ml do not necessarily indicate the presence of Hypothyroidism. Correlation with clinical findings such as presence of goiter and/or Thyroperoxidase (TPO) Antibody may be helpful. For more information please refer to YU 2004; 291: 228-238. Shane Ramires DO CHEMISTRY Performing Organization Address City/[facility] Co de Phone Number [facility] [address] [place] [address], * T4,FREE (03/17/2024 4:18 AM CDT) Pathologist [facility] T4,FREE 1.37 0.93 - 1.70 ng/dL 03/17/2024 10:51 PM CDT [facility] Blood BLOOD SPECIMEN / Unknown Venipuncture / Unknown 03/17/2024 4:18 AM CDT 03/17/2024 4:35 AM CDT [facility] [employer] CHEMISTRY Performing Organization Address City/[facility]/ZIP Co de Phone Number [facility] [address] [place] [phone], * CK TOTAL (03/17/2024 4:18 AM CDT) Pathologist [facility] CK,TOTAL 133 39 - 308 IU/L 03/17/2024 9:43 PM CDT [facility] Blood BLOOD SPECIMEN / Unknown Venipuncture / Unknown 03/17/2024 4:18 AM CDT 03/17/2024 4:35 AM CDT Shane Ramires DO CHEMISTRY Performing Organization Address City/[facility]/ZIP Co de Phone Number [facility] [address] [place] [address] * CALCIUM IONIZED HOSPITAL DRAW ONLY (03/17/2024 4:18 AM CDT) Only the most recent of3 resultswithin the time period is included. CALCIUM,IONIZE D 1.18 1.15 - 1.27 mmol/L 03/17/2024 4:41 AM CDT [facility] Blood BLOOD SPECIMEN / Unknown Venipuncture / Unknown 03/17/2024 4:18 AM CDT 03/17/2024 4:35 AM CDT Estrella Flores MD CHEMISTRY Performing Organization Address [facility] Co de Phone Number [facility] [address] [place] [address], * SCAN-CARDIAC STRIP (03/16/2024 7:21 PM CDT) Scanner OTHER * (ABNORMAL) URINALYSIS MICROSCOPIC (03/16/2024 4:32 PM CDT) RBC 0-2 0-2, None Seen /HPF 03/16/2024 4:49 PM CDT [facility] WBC 0-2 0-2, 3-5, None Seen /HPF 03/16/2024 4:49 PM CDT [facility] BACTERIA None Seen None Seen, Rare, Few Bacteria/ HPF 03/16/2024 4:49 PM CDT [facility] EPITHELIAL CELLS None Seen None Seen, Few Epi/HPF 03/16/2024 4:49 PM CDT [facility] HYALINE CASTS 11-25(A) 0-2, 3-5 /LPF 03/16/2024 4:49 PM CDT [facility] Urine URINE SPECIMEN / Unknown Non-Blood / Unknown 03/16/2024 4:32 PM CDT 03/16/2024 4:40 PM CDT Lucio ARMAS URINE [facility] [address] [place] [address], [place] * (ABNORMAL) UA W/ SEDIMENT EXAM REFLEXED PER CRITERIA (03/16/2024 4:32 PM CDT) COLOR Yellow Yellow Color 03/16/2024 4:49 PM CDT [facility] CLARITY Clear Clear Clarity 03/16/2024 4:49 PM CDT [facility] SPECIFIC GRAVITY,URINE 1.015 1.010, 1.015, 1.020, 1.025 03/16/2024 4:49 PM CDT [facility] PH,URINE 5.0(A) 6.0, 7.0, 8.0, 5.5, 6.5, 7.5, 8.5 03/16/2024 4:49 PM CDT [facility] UROBILINOGEN, QUALITATIVE Normal Normal EU/dl 03/16/2024 4:49 PM CDT [facility] PROTEIN, URINE Trace(A) Negative mg/dL 03/16/2024 4:49 PM CDT [facility] GLUCOSE, URINE >=1000(A) Negative mg/dL 03/16/2024 4:49 PM CDT [facility] KETONES,URINE Negative Negative mg/dL 03/16/2024 4:49 PM CDT [facility] BILIRUBIN,URI NE Negative Negative 03/16/2024 4:49 PM CDT [facility] OCCULT BLOOD,URINE Negative Negative 03/16/2024 4:49 PM CDT [facility] NITRITE Negative Negative 03/16/2024 4:49 PM CDT [facility] LEUKOCYTE ESTERASE Negative Negative 03/16/2024 4:49 PM CDT [facility] Urine URINE SPECIMEN / Unknown Non-Blood / Unknown 03/16/2024 4:32 PM CDT 03/16/2024 4:40 PM CDT Lucio ARMAS URINE [facility] [address] [place] [address], * PROCALCITONIN (03/16/2024 4:08 PM CDT) PROCALCITONIN 0.04 ng/ml 03/16/2024 4:59 PM CDT [facility] Blood BLOOD SPECIMEN / Unknown Butterfly / Unknown 03/16/2024 4:08 PM CDT 03/16/2024 4:18 PM CDT Narrative [facility] - 03/16/2024 4:59 PM [...] Lucio ARMAS SEND OUTS Performing Organization Address City/[facility]/ZIP Co de Phone Number [facility] [address] [place] [address], * BLOOD CULTURE (03/16/2024 4:08 PM CDT) Only the most recent of2 resultswithin the time period is included. CULTURE No Growth. 03/20/2024 7:10 PM CDT [facility] Blood BLOOD SPECIMEN / Unknown Butterfly / Unknown 03/16/2024 4:08 PM CDT 03/16/2024 4:18 PM CDT Narrative [facility] - 03/20/2024 7:10 PM CDT Low volume blood culture received; possible false negative culture. Lucio ARMAS MICROBIOLOGY [facility] [address] [place] [address], * ICD ANALYSIS DUAL WITHOUT REPROGRAM (03/16/2024 3:32 PM CDT) Narrative Marquis Santana MD - 03/16/2024 3:32 PM CDT Cyndi Arnold RN ? 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 All HV pathways have been programmed B>AX. Location of evaluation: [facility] - [id number] Reason for evaluation: Provider Request MEASUREMENTS Atrial [...] 4 months via [facility] remote with annual [place] or clinic with Dr. Santana each February. Cyndi Arnold, RN Nurse Clinician II [facility] Pacemaker/ICD Clinic Marquis Santana MD CARDIAC SERVICES ORD * EXTRA TUBE LIGHT GREEN (03/16/2024 1:23 PM CDT) Blood BLOOD SPECIMEN / Unknown Non-Lab Venipuncture / Unknown 03/16/2024 1:23 PM CDT 03/16/2024 1:33 PM CDT Estrella Flores MD LABORATORY [facility] [address] [place] [address], * (ABNORMAL) BLOOD GAS,VENOUS (03/16/2024 1:23 PM CDT) PH, VENOUS 7.31(L) 7.32 - 7.43 03/16/2024 1:36 PM CDT [facility] PCO2, VENOUS 68(H) 41 - 51 mmHg 03/16/2024 1:36 PM CDT [facility] PO2, VENOUS 63(H) 35 - 40 mmHg 03/16/2024 1:36 PM CDT [facility] HCO3,VENOUS 34(H) 22 - 29 mmol/L 03/16/2024 1:36 PM CDT [facility] BASE EXCESS, VENOUS, POCT 5.6(H) -2.0 - 3.0 03/16/2024 1:36 PM CDT [facility] O2 SATURATION, VENOUS 93(H) 70 - 75 % 03/16/2024 1:36 PM CDT [facility] PATIENT TEMPERATURE 37.0 Degrees C 03/16/2024 1:36 PM CDT [facility] Blood VENOUS BLOOD SPECIMEN / Unknown Butterfly / Unknown 03/16/2024 1:23 PM CDT 03/16/2024 1:31 PM CDT Estrella Flores MD CHEMISTRY Performing Organization Address [facility]/ZIP Co de Phone Number [facility] [address] [place] [address], [place] * LACTATE VENOUS (03/16/2024 1:22 PM CDT) Only the most recent of3 resultswithin the time period is included. LACTATE,VENOUS 0.8 0.5 - 2.0 mmol/L 03/16/2024 2:38 PM CDT [facility] Blood BLOOD SPECIMEN / Unknown Butterfly / Unknown 03/16/2024 1:22 PM CDT 03/16/2024 1:31 PM CDT Lucio ARMAS CHEMISTRY Performing Organization Address City/[facility]/ZIP Co de Phone Number [facility] [address] [place] [address], [place] * (ABNORMAL) HEMOGLOBIN (03/16/2024 1:22 PM CDT) Only the most recent of2 resultswithin the time period is included. HEMOGLOBIN 11.1(L) 13.5 - 17.5 g/dL 03/16/2024 1:39 PM CDT [facility] MCV 101(H) 80 - 100 fL 03/16/2024 1:39 PM CDT [facility] Blood BLOOD SPECIMEN / Unknown Butterfly / Unknown 03/16/2024 1:22 PM CDT 03/16/2024 1:31 PM CDT Lucio ARMAS HEMATOLOGY Performing Organization Address [facility]/ZIP Co de Phone Number [facility] [address] [place] [address], * (ABNORMAL) FACTOR 10 CHROMOGENIC (03/16/2024 1:22 PM CDT) FACTOR 10 CHROMOGENIC 41(L) 65 - 130 % 03/16/2024 1:46 PM CDT [facility] Blood BLOOD SPECIMEN / Unknown Butterfly / Unknown 03/16/2024 1:22 PM CDT 03/16/2024 1:31 PM CDT Narrative [facility] - 03/16/2024 1:46 PM CDT Therapeutic Range 20-40% Lucio ARMAS SEND OUTS Performing Organization Address [facility] Co de Phone Number [facility] [address] [place] [address], * CORTISOL TOTAL (03/16/2024 10:29 AM CDT) CORTISOL,TOTAL 15.0 ug/dL 03/16/2024 1:29 PM CDT [facility] Blood BLOOD SPECIMEN / Unknown Non-Lab Venipuncture / Unknown 03/16/2024 10:29 AM CDT 03/16/2024 10:35 AM CDT Narrative [facility] - 03/16/2024 1:29 PM CDT Cortisol ?Morning Hours ?6:00 ??AM - 10:00 AM ?(4.8-19.5 ug/dL) Cortisol ?Afternoon Hours ??4:00 ??PM - ??8:00 PM ?(2.5-11.9 ug/dL) ? Biotin supplements may cause clinically significant interference for this test assay. ??If interference is suspected, it is strongly recommended that biotin is discontinued for at least one week prior to retesting. Estrella Flores MD CHEMISTRY [facility] [address] [place] [address], [place] * ECHO TTE LIMITED W CONTRAST W COLOR W DOPPLER (03/16/2024 10:23 AM CDT) AORTIC VALVE MEAN PG 7 mmHg EJECTION FRACTION 50 - 55% Anatomical Region Laterality Modality Ultrasound 03/16/2024 9:42 AM CDT Narrative 03/16/2024 11:06 AM CDT ECHOCARDIOGRAM RODRIGEZ G LIZTAMARA ? Accession#: ?? [id number] : ?1950 73 years Study Date: ?? 03/16/2024 9:42:01 AM Gender: M ?BP: ? 84/55 mmHg Height: 137.00 cm ?BSA: ?2.42 m? ? ? Weight: 200.00 kg ?Tech: ? OLL ? Referring MD: ESTRELLA FLORES Site: ? [facility] Reading Location: [facility] Patient Location: Inpatient. Procedure: Limited Echo w/ [...] documentation: 2 ml diluted Definity, lot #[id number], [facility]# [id number] was administered peripherally to enhance visualization of all left ventricular segments. . This study was interpreted by an [facility] accredited facility. ??Final ?? Procedure Note Leonel Montanez MD - 03/16/2024 ECHOCARDIOGRAM RAIN CENTENO : 1950 73 years Study Date: 03/16/2024 9:42:01 AM Gender: M BP: 84/55 mmHg Height: 137.00 cm BSA: 2.42 m? ? ? Weight: 200.00 kg Tech: PAULOL Referring MD: ESTRELLA FLORES Site: [facility] Reading Location: [facility] Patient Location: [...] documentation: 2 ml diluted Definity, lot #[id number], [facility]#[id number] was administered peripherally to enhance visualization of allleft ventricular segments. . This study was interpreted by an [facility] accredited facility. Final Estrella Flores MD ECHO [...] 6-15 ng/L ng/L 03/15/2024 8:14 PM CDT [facility] Blood BLOOD SPECIMEN / Unknown Venipuncture / Unknown 03/15/2024 7:54 PM CDT 03/15/2024 7:56 PM CDT Janina Valero MD CHEMISTRY [facility] [address] [place] [address] * CT CERVICAL SPINE WO (03/15/2024 2:10 [...] unable to start IV: Yes Requesting provider: rAgelia Martin NP, Trauma PIV Site was prepped [...] 6-15 ng/L ng/L 03/15/2024 8:01 PM T [facility] Blood BLOOD SPECIMEN / Unknown Venipuncture / Unknown 03/15/2024 12:48 PM CDT 03/15/2024 12:57 PM CDT [facility] - 03/15/2024 8:01 PM CDT [...] Janina Valero MD CHEMISTRY Performing Organization Address City/State/[facility] Co de Phone Number [facility] [address] [place] [address] * Type and Screen (03/15/2024 12:48 PM CDT) ABORH O Rh Positive 03/15/2024 1:29 PM CDT [facility] BLOOD BANK ANTIBODY SCREEN Negative Negative 03/15/2024 1:29 PM CDT [facility] BLOOD BANK SPECIMEN EXPIRATION DATE/TIME 03/18/24 23:59 03/15/2024 1:29 PM CDT [facility] BLOOD BANK Blood BLOOD SPECIMEN / Unknown Venipuncture / Unknown 03/15/2024 12:48 PM CDT 03/15/2024 12:57 PM CDT Janina Valero MD BLOOD BANK Performing Organization Address [facility] Co de Phone Number [facility] BLOOD BANK [address] [place] [address] * (ABNORMAL) PROTIME- INR (03/15/2024 12:48 PM CDT) INR 2.4(H) <1.3 03/15/2024 1:09 PM CDT [facility] PROTIME 26.0(H) 10.3 - 12.3 sec 03/15/2024 1:09 PM CDT [facility] Blood BLOOD SPECIMEN / Unknown Venipuncture / Unknown 03/15/2024 12:48 PM CDT 03/15/2024 12:57 PM CDT [facility] - 03/15/2024 1:09 PM CDT ?Therapeutic [...] Janina Valero MD HEMATOLOGY Performing Organization Address [facility] Co de Phone Number [facility] [address] [place] [address] * (ABNORMAL) LIPID PANEL (01/07/2018 4:35 PM CDT) CHOLESTEROL,TOTAL 174 100 - 199 mg/dL 01/07/2018 6:28 PM CDT [facility] TRIGLYCERIDES 194(H) <150 mg/dL 01/07/2018 6:28 PM CDT [facility] HDL CHOLESTEROL 64 >40 mg/dL 8 6:28 PM CDT [facility] NON-HDL CHOLESTEROL 110 <145 mg/dl 01/07/2018 6:28 PM CDT [facility] CHOL/HDL RATIO 2.72 <4.50 01/07/2018 6:28 PM CDT [facility] LDL CHOLESTEROL 71 <=130 mg/dL 01/07/2018 6:28 PM CDT [facility] PROVIDER ORDERED STATUS RANDOM 01/07/2018 6:28 PM CDT [facility] Blood BLOOD SPECIMEN / Unknown Venipuncture / Unknown 01/07/2018 4:35 PM CDT 01/07/2018 4:39 PM CDT Aba Boo MD CHEMISTRY [facility] [address] [place] [address] from Last 3 Months or Most Recently [...] Comments Code Status Discussion: Other Care Teams Supervisor Yard Relationship Specialty Start Date End Date Aba Boo MD [address] [place] [address] PCP - General Family Practice 11/18/19 Destin Johnston MD [address] [place] [address] Cardiology - CHF Cardiovascular Disease 04/14/20 Nurses, Advanced Heart Failure [address] [place] [address] Advanced Heart Failure/Transplant Card 04/14/20
== END 2024-06-09 12:50 | disposition home or self-care (01) ==
LOC: WOUND 12:50
PROVIDERS: PCP Family Medicine; Visit Provider Surgery
DX: I87.332 Chronic venous hypertension (idiopathic) with ulcer and inflammation of left lower extremity (principal); I89.0 Lymphedema, not elsewhere classified; L97.822 Non-pressure chronic ulcer of other part of left lower leg with fat layer exposed
CPT/HCPCS: 97597

== ENCOUNTER 2024-06-16 12:52 | Outpatient (CLI) | payer MEDICARE, BC, SELFPAY ==
--- OUTSIDE RECORDS SUMMARY | 2024-06-16 12:53 | XMS_ITS | Encounter Summary ---
Author Organization [facility] Address [address] [address] Phone Care Team Providers Care Manager Gift Name Role Phone Aba Boo MD Primary Care Provider [phone] Reason for Visit * Reason Comments Cardiac Device Check Encounter Details Date Type Department Care Team (Latest Contact Info) Description 04/02/2024 7:00 AM CDT Cardiac Device Remote [facility] [address] [place] [address] Ancillary, [facility] Pacer Remote Monitor Sinoatrial node [...] the original note were not included. 04/02/24 [id number] Remote Impression and Plan Place of Service [place];[employer];In person Remote Monitoring;E.R.;ICD Final Impression Normal Remote Monitor with Events RVP > 40% NO Events/Comments In person care link from [employer]. Pt has been 100% AT/AF since 03/16/24 with ventricular rates 80-120s bpm for majority of time. Presenting egm supporting AT/AF VS 80-120 bpm. No ventricular events logged. Minimally MOVIE STUNT PERFORMER: 4.3%. Updated Dr. Frye via secure chat. Pt's device is beeping due to unsuccessful [employer] Alert transmission. Pt needs to follow up with [employer] technical support and device clinic they follow with. Follow Up Plan follow-up as scheduled Plan of Care Full report under Media/CV tab Anticoagulation (No updated med list) Battery 2.8 yrs Atrial Fib [place] % 100 RVP % 4.3 Heart Rate [...] call notification and can be viewed in [employer]. Presenting rhythm: Associated attestation - Sanjay Alvarez [...] documented in this encounter Care Teams Manager Gift Relationship Specialty Start Date End Date Aba Boo MD [facility] & [address] [phone] PCP - General Family Medicine 04/02/24 documented as of this encounter
--- OUTSIDE RECORDS SUMMARY | 2024-06-16 12:53 | XMS_ITS | Encounter Summary ---
Author Organization [facility] Address [address] [address] Phone Care Team Providers Care Water Truck Driver Name Role Phone Aba Boo MD Primary [...] on filedocumented in this encounter Care Teams Water Truck Driver Relationship Specialty Start Date End Date Aba Boo MD [facility] & [address] [address] PCP - General Family Medicine 04/02/24 documented as of this encounter
--- OUTSIDE RECORDS SUMMARY | 2024-06-16 12:53 | XMS_ITS | Encounter Summary ---
Author Organization [facility] Address [address] [address] Phone Care Team Providers Care Radiology Transcriptionist Name Role Phone Aba Boo MD Primary Care Provider Reason for Visit * Reason Comments Pacemaker Problem Encounter Details Date Type Department Care Team (Late st Contact Info) Description 04/02/2024 3:26 PM CDT - 04/02/2024 4:45 PM CDT Emergency [facility] Emergency Department [address] [place] [id number] Lee Frye, DO [address] [place] [address] [phone] Pacemaker complications, initial encounter (Primary Dx) Discharge [...] Code Departure Means Destination Home and/or Self [facility] documented in this encounter ED Notes * [...] certainly considered. Pacemaker was interrogated. Per pacemaker office machines sales representative the pacemaker is working appropriately. [...] a f ollow up appointment please call [phone] to arrangefor peanut picker. If you had an IV in [...] Primary documented in this encounter Care Teams Radiology Transcriptionist Relationship Specialty Start Date End Date Aba Boo MD [facility] [address] [place] [address] PCP - General Family Medicine 04/02/24 documented as of this encounter
--- OUTSIDE RECORDS SUMMARY | 2024-06-16 12:53 | XMS_ITS | Clinical Summary ---
Author Organization [facility] Address [address] [address] Phone Care Team Providers Care Manager Of Warehouse Name Role Phone Aba Boo MD Primary Care Provider [phone] Allergies No known active allergies Encounters Date Type Department Care Team Description 04/02/2024 3:26 PM CDT - 04/02/2024 4:45 PM CDT Emergency [facility] Emergency Department [address] [place] [address] Lee Frye, Pacemaker complications, initial encounter (Primary Dx) Discharge Disposition: Home and/or Self Care 04/02/2024 7:00 AM CDT Cardiac Device Remote [facility] [address] [place] [phone] Ancillary, [facility] Pacer [...] vaccine (Standing Order) (1 of 2) 2000 Pneumococcal Vaccine: 65+ yr s (Standing Order) [...] age to complete this topic Care Teams Manager Of Warehouse Relationship Specialty Start Date End Date Aba Boo MD [facility] & [address] [phone] PCP - General Family Medicine 04/02/24
--- OUTSIDE RECORDS SUMMARY | 2024-06-16 12:54 | XMS_ITS | Clinical Summary ---
Author Organization [facility] Address [place], [place] [address] Care Team Providers Care Associate Curator Name Role Phone Aba Boo MD Primary Care Provider + Destin Johnston MD Unavailable [phone] Nurses, Advanced Heart Failure Unavailable + Allergies No known active allergies Medications Medication Sig Dispensed Refills Start Date End Date Status acetaminophen (TYLENOL EXTRA STRGTH) 500 mg tablet Take 2 tablets by mouth every 6 hours if needed. 0 08/02/2020 Active traZODone (DESYREL) 100 mg tablet Take 200 mg by mouth at bedtime if needed for Sleep. 05/06/2023 Active rOPINIRole (REQUIP) 4 mg tablet Take 12 mg by mouth once daily in the evening. Active levothyroxine (Synthroid) 112 mcg tablet Take 224 mcg by mouth once daily. Active metOLazone (ZAROXOLYN) 5 mg tabletIndications:C hronic HFrEF (heart failure with reduced ejection fraction) (HC) Take by mouth as directed by advanced heart failure team clinicians. 15 Tablet 04/13/2024 Active rivaroxaban (Xarelto) 20 mg tabletIndications:A trial fibrillation, unspecified type (HC) Take 1 Tablet (20 mg) by mouth once daily with evening meal. 90 Tablet 3 04/13/2024 Active rosuvastatin (CRESTOR) 10 mg tabletIndications:C oronary artery disease, unspecified vessel or lesion type, unspecified whether angina present, unspecified whether salamatof or transplanted heart Take 1 Tablet (10 mg) by mouth at bedtime. 90 Tablet 3 04/13/2024 Active empagliflozin (Jardiance) 10 mg tabletIndications:C hronic systolic heart failure (HC) Take 1 Tablet (10 mg) by mouth once daily. HOLD until after cardioversion on 04/1904/16/2024 Active amiodarone (CORDARONE) 200 mg tabletIndications:A trial fibrillation, persistent (HC) Starting on 05/21/2024: Reduce to Amiodarone 1 tablet (200 mg) by mouth twice daily, THEN 06/18: Reduce to 1 tablet (200 mg) by mouth once daily. 90 Tablet 4 05/21/2024 Active torsemide (DEMADEX) 20 mg tabletIndications:P rimary cardiomyopathy (HC) Take 3 tablets (60mg) in the morning and 2 tablets (40 mg) in the afternoon 90 Tablet 2 05/20/2024 Active sacubitril-valsarta n (ENTRESTO) 24-26 mg tabletIndications:P rimary cardiomyopathy (HC),Acute on chronic HFrEF (heart failure with reduced ejection fraction) (HC) Take 0.5 Tablets by mouth two times daily. 90 Tablet 3 06/10/2024 Active gabapentin (NEURONTIN) 300 mg capsule Take 300-600 mg by mouth daily in evening if needed (restless legs). 05/24/20 Discontinu ed(*Patien t states no longer taking) hydrocortisone 1 % creamIndications:At ria fibrillation, unspecified type (HC) Apply topically to affected area(s) 4 times daily if needed for Itching. 04/19/2024 05/24/20 Discontinu ed(*Patien t states no longer taking) tirzepatide, weight loss, (ZEPBOUND) 7.5 mg/0.5 mL pen Inject 7.5 mg subcutaneous once weekly. Saturdays06/10/20 Discontinu ed(*Patien t states no longer taking) torsemide (DEMADEX) 20 mg tabletIndications:P rimary cardiomyopathy (HC) Take 2 tablets (40mg) twice daily through 05/15/2024, then reduce to 1 and one-half tablets (30mg) twice daily 90 Tablet 2 05/11/2024 05/20/20 24 Discontinu ed(Reorder (E-cancel not sent)) amiodarone (CORDARONE) 200 mg tabletIndications:A trial fibrillation, persistent (HC) Take 2 Tablets (400 mg) by mouth two times daily. 05/21/2024: Reduce to 1 tablet (200 mg) by mouth twice daily. 06/18: Reduce to 1 tablet (200 mg) by mouth once daily. 05/14/2024 05/20/20 24 Discontinu ed(*Medica tion adjustment ) digoxin (LANOXIN) 125 mcg (0.125 mg) tabletIndications:A trial fibrillation, unspecified type (HC) Take 1 Tablet (125 mcg) by mouth once daily. 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 Pt denies current cardiac sx. //Pt has not started metOLazone (ZAROXOLYN) 5 mg tablet yet. //Pt was told to stop Entresto during one of his admissions and wants to discuss if he should be on it again.) 06/10/2024 Telephone [facility] [address] [facility] [address] [place] [phone] Riaz Peterson MD Questions 06/09/2024 11:30 AM CDT Orders Only [facility] [address] [place] [address] Lab, [facility] Lab 06/09/2024 Travel 06/08/2024 Orders Only [facility] [place] [facility] [address] [place] [phone] Sanjay Lazaro MD <No scans attached> 06/08/2024 Telephone [facility] [place] [address] [facility] [address] [place] [address] Jono Peters MD Appointment 06/02/2024 9:45 AM CDT Office Visit [facility] [address] [facility] [address] [place] [address] Sanjay Lazaro MD Hand Pain/problem (Right wrist numbness/tingling) 06/02/2024 Orders Only [facility] [address] [place] [phone] Sanjay Lazaro MD <No scans attached> 06/02/2024 Travel 05/27/2024 9:04 AM CDT Anesthesia Event [facility] [address] [place] [address] Erendira Velez MD Riley, Benjamin William, CRNA 05/27/2024 7:15 AM CDT - 05/27/2024 10:24 AM CDT Hospital Encounter [facility] [address] [place] [address] Seamus Cole MD Atrial fibrillation, persistent (HC) Discharge Disposition: Home Self Care 05/27/2024 Travel 05/24/2024 8:30 AM CDT Office Visit [facility] [address] [facility] [address] [place] [address] Iva Johnston CNS Follow Up (CHF FOLLOWUP /POST ABLATION DONE ON 05/11... Post modified diuretic with CMP post ablation/LABS PRIOR IN [place]/I42.9 (ICD-10-CM) - Primary cardiomyopathy (HC)/I50.23 (ICD-10-CM) - Acute on chronic HFrEF (heart failure with reduced ejection fraction) (HC) /PT states feeling ok./Went into afib a couple days later going back on ) 05/24/2024 Telephone [facility] [address] [phone] Riaz Peterson MD Error-please disregard 05/24/2024 Travel 05/20/2024 12:00 PM CDT Orders Only [facility] [address] [place] [address] Lab, [facility] Lab 05/20/2024 Telephone [facility] [address] [facility] [address] [place] [phone] Seamus Cole MD Atrial Fibrillation 05/20/2024 Travel 05/19/2024 Telephone [facility] [address] [place] [address] Destin Johnston MD Medication Management 05/19/2024 Telephone [facility] [address] [facility] [address] [place] [phone] Marquis Santana MD Medication Management 05/19/2024 Telephone [facility] [address] [address] Susana Joyner I, RN Device Check 05/19/2024 Telephone [facility] [address] [address] Marquis Santana MD Device Check 05/19/2024 Telephone [facility] [address] [address] Erendira Sotomayor, DIRECTOR NEWS Weight 05/14/2024 9:37 AM CDT Anesthesia Event [facility] [address] [place] [address] Aba Valerio MD 05/14/2024 7:10 AM CDT - 05/14/2024 11:40 AM CDT Hospital Encounter [facility] [address] [place] [address] Seamus Cole MD Atrial fibrillation, persistent (HC) Discharge Disposition: Home Self Care 05/14/2024 Travel 05/13/2024 9:20 AM CDT Orders Only [facility] [address] [facility] [address] [place] [address] Lab 05/13/2024 Telephone [facility] [address] [address] Martha Warner RN 05/13/2024 Telephone [facility] [address] [address] Marquis Santana MD Results (LFT and TSH results on Amiodarone) 05/12/2024 Travel 05/11/2024 7:46 AM CDT Anesthesia Event [facility] [address] [place] [address] Alan Yao DO 05/11/2024 5:41 AM CDT - 05/11/2024 5:50 PM CDT Hospital Encounter [facility] [address] [place] [address] Marquis Santana MD Kroll, Sharon Marie, CRNA Primary cardiomyopathy (HC) (Primary Dx); Acute on chronic HFrEF (heart failure with reduced ejection fraction) (HC) Discharge Disposition: Home Self Care 05/11/2024 Travel 05/04/2024 Telephone [facility] [address] [phone] Marquis Santana MD Medication Management 05/04/2024 Telephone [facility] [address] [address] Guadalupe Rosado RN Appointment 05/03/2024 Telephone [facility] [address] [phone] Marquis Santana MD Concerns (AFIB) 04/30/2024 12:03 PM CDT Anesthesia Event [facility] [address] [place] [address] Aba Valerio MD Wilson, Timothy Eric, CRNA 04/30/2024 10:08 AM CDT - 04/30/2024 3:03 PM CDT Hospital Encounter [facility] [address], [place] [address] Marquis Santana MD Discharge Disposition: Home Self Care 04/30/2024 Travel 04/27/2024 10:15 AM CDT Ancillary Procedure [facility] [address] 04/27/2024 9:45 AM CDT Office [facility] [address] [facility] [address] [place] [address] Riaz Peterson MD Recheck (EP, non-displaced left femoral neck fracture DOI:02/11/2024, x-rays) 04/27/2024 Travel 04/25/[address] [address] Dennis Barahona RN 04/22/2024 1:20 PM CDT Orders Only [facility] [address] [facility] [place] [address] [facility]Ale Lab 04/22/2024 Travel 04/20/2024 Telephone [facility] [address] [facility] [address] [place] [phone] Marquis Santana MD Atrial Fibrillation 04/19/2024 9:05 AM CDT Anesthesia Event [facility] [address] [place] [address] Marco Aguiar MD Wilson, Timothy Eric, CRNA 04/19/2024 7:18 AM CDT - 04/19/2024 10:53 AM CDT Hospital Encounter [facility] [address] [place] [address] David Ugarte, Chi Cuadra MD Deviley, Sarah Jean, CRNA Atrial fibrillation, unspecified type (HC) (Primary Dx) Discharge Disposition: Home Self Care 04/19/2024 Travel 04/16/2024 7:06 AM CDT - 04/16/2024 10:07 AM CDT Hospital Encounter [facility] [address] [place] [address] Marquis Santana MD Wilson, Timothy Eric, CRNA Obesity, unspecified classification, unspecified obesity type, unspecified whether serious comorbidity present (Primary Dx); Chronic systolic heart failure (HC) Discharge Disposition: Home Self Care 04/16/2024 7:05 AM CDT Anesthesia Event [facility] [address] [place] [address] Placido Chowdhury CRNA 04/16/2024 Travel 04/15/2024 Orders Only [facility] Scanner 1 scan: (1-Ord) SHAHAB 04/15/2024 Telephone [facility] [address] [facility] [address] [place] [phone] Lianna Dominguez RN Device Check (AF alert) 04/14/2024 Telephone [facility] [address] [place] [phone] Destin Johnston MD 04/13/2024 4:20 PM CDT Office Visit [facility] [address] [place] [address] Rosalie Senior NP Heart Problem (Paroxysmal atrial fibrillation); Primary MD (Aba Boo MD/) 04/13/2024 8:00 AM CDT Office Visit [facility] [address] [place] [address] Destin Johnston MD CV Heart Failure Est (STAT - IN PERSON F/U VISIT. LABS PRIOR @ [facility] /Acute on chronic HFrEF (heart failure with reduced ejection fraction) //pt states he is in a-fib. He got converted on and went to primary yesterday to confirm he is in A-fib still.//) 04/13/2024 Travel 04/10/2024 Telephone [facility] [address] [facility] [address] [place] [phone] Marquis Banda RN Device Check (Patient thinks he back in AF) 04/08/2024 2:40 PM CDT Anesthesia Event [facility] [address] [place] [address] Zion Leigh MD 04/08/2024 12:19 PM CDT - 04/08/2024 3:58 PM CDT Hospital Encounter [facility] [address] [place] [address] Marquis Santana MD Wilson, Timothy Eric, CRNA Kushins, Stephen Isaac, MD Persistent atrial fibrillation (HC) (Primary Dx) Discharge Disposition: Home Self Care 04/08/2024 Travel 04/07/2024 Telephone [facility] [address] [facility] [address] [place] [phone] Marquis Santana MD Schedule Cardioversion 04/05/2024 10:30 AM CDT Office Visit [address] [phone] Kathleen Boyer PA Follow Up (follow up) 04/05/2024 Travel 04/02/2024 Telephone [facility] [address] [place] [address] Susana Joyner I, RN Device Check 04/02/2024 Telephone [facility] [address] [place] [address] Destin Johnston MD Concerns (Defib beeping ) 03/30/2024 9:55 AM CDT Ancillary Procedure [address] [address] 03/30/2024 9:50 AM CDT Ancillary Procedure [address] [address] 03/30/2024 9:30 AM CDT Office Visit [address] [phone] Riaz Peterson MD Hip Pain/problem (left hip pain); Chest Injury (left side rib pain) 03/30/2024 Travel 03/29/[address] [address] Riaz Peterson MD Questions 03/22/2024 Telephone [facility] [address] [place] [phone] Destin Johnston MD Follow Up (BP update) 03/19/2024 Orders Only [facility] [address] [place] [address] Destin Johnston MD <No scans attached> 03/15/2024 10:28 PM CDT - 03/19/2024 11:22 AM CDT Hospital Encounter [facility] [address] [place] [address] Alan De Santiago MD Kiberenge, MD Kaleb Monroy, MD Keyla Mcgarry, DO Gerardo Lundberg, Lee Kennedy MD [facility] Hospitalists Of Left displaced femoral neck fracture (HC) (Primary Dx); Closed fracture of multiple ribs of left side, sequela; Closed fracture of neck of left femur with routine healing, subsequent encounter; Acute on chronic HFrEF (heart failure with reduced ejection fraction) (HC) Discharge Disposition: Home Self Care from Last 3 Months Immunizations Name Administration [...] Yes Alcohol Use Standard Drinks/Week Comments Yes 7 (1 standard drink = 0.6 oz pur e alcohol) 1-2 drinks per day PHQ-2 Answer Date Recorded PHQ-2 Score 0 [...] Sign Reading Time Taken Comments Blood Pressure 110/62 06/10/2024 7:59 AM CDT Pulse 69 06/10/2024 7:59 AM CDT Temperature 36.6 ??C (97.8 ??F) 05/14/2024 8:00 AM CD T Respiratory Rate 16 05/27/2024 9:15 AM CDT Oxygen Saturation 93% 06/10/2024 7:59 AM CDT Inhaled Oxygen Concentration - - Weight 129.7 kg (286 lb) 06/10/2024 7:59 AM CDT Height 200.7 cm (6' 7) 06/10/2024 7:59 AM CDT Body Mass Index 32.22 06/10/2024 7:59 AM CDT Plan of Treatment Upcoming Encounters Date Type Department Care Team (Late st Contact Info) Description 06/25/2024 Cardiac Device Check [facility] [phone] 06/29/2024 2:20 PM CDT Office Visit [facility] [address] [address] Rosalie Senior NP [address] [place] [address] 07/07/2024 11:30 AM CDT Office Visit [facility] [address] [place] [address] Chai Espinosa DPM [address] [place] [address] 07/09/2024 10:38 AM CDT Hospital Encounter [facility] [address] [place] [address] Sanjay Lazaro MD [address] [address] 07/09/2024 10:38 AM CDT - 07/09/2024 11:57 AM CDT Surgery [facility] [address] [place] [address] Sanjay Lazaro MD [address] [place] [address] RIGHT OPEN CARPAL TUNNEL RELEASE. 07/21/2024 11:00 AM CDT Office Visit [facility] [address] [place] [address] Janeth Resendez PA [address] [place], [place] [phone] Scheduled Procedures Name Priority Associated Diagnoses Date/Ti me RELEASE CARPAL TUNNEL Elective Carpal tunnel syndrome of right wrist 07/09/2024 10:38 AM CDT Health Maintenance Due Date Last Done Comments Tdap 1961 Hepatitis C screening for ag e 18-79 1968 Tetanus booster 1970 Zoster (shingles) series for age 50+ (2 of 3) 08/19/2013 06/24/2013 Colonoscopy through age 75 08/07/201608/07 (Completed outside of [place]) Pneumococcal series for age 65+ (2 of 2 - PCV) 11/27/2016 11/28/2015 Depression screening for age 12+ 12/08/2019 12/08/19 19, 11/28/2015 Lipids for age 45-75 01/07/2023 01/07/2018, 03/03/2017, 11/28/2015, Additional history exists COVID-19 vaccine series (2 - season) 2024 06/27/2021 Influenza for age 65+ 05/30/2024 06/24/2013 Medicare Wellness for age 65+ 11/10/2024 11/10/2023, 11/28/2015 BMI (ht and wt on same day) for age 18+ 06/10/2025 06/10/2024, 05/24/2024, 04/13/2024, Additional history exists AAA screening age 65-74 Completed 03/15/2024 Medical Devices Implanted Type Area Garland Maker Device Identifier Shelf Expiration Date Model / Serial / Lot Graft Valsalva 34mm - [id number] Implanted:Qty: 1 on 09/09/2011 at [facility] [id number] / / Procedures Procedure Name Priority Date/Time [...] STUDY ARCHIVE Routine 03/16/2024 1:[address] CHEST ABDOMEN PELVIS W STAT 03/15/2024 2:02 PM CDT LIPID PANEL Routine 01/07/2018 4:35 PM CDT Hypertension from Last 3 Months or Most Recently Relevant to Health Maintenance Results * (ABNORMAL) PRO-BNP (06/09/2024 11:43 AM CDT) Only the most recent of4 resultswithin the time period is included. PRO-BNP 730(H) <125 pg/mL 06/09/2024 12:42 PM CDT [facility] Blood BLOOD SPECIMEN / Unknown Venipuncture / Unknown 06/09/2024 11:43 AM CDT 06/09/2024 11:45 AM CDT [facility] - 06/09/2024 12:42 PM CDT The [...] for acute congestive heart failure. ? Iva TOBAR SEND OUTS [facility] [address] [place] [address] * (ABNORMAL) BASIC METABOLIC PANEL (06/09/2024 11:43 AM CDT) Only the most recent of9 resultswithin the time period is included. SODIUM 142 136 - 145 mmol/L 06/09/2024 12:[address] [facility] POTASSIUM 3.9 3.5 - 5.1 mmol/L 06/09/2024 12:[address] [facility] CHLORIDE 97(L) 98 - 107 mmol/L 06/09/2024 12:[address] [facility] CO2,TOTAL 36(H) 22 - 29 mmol/L 06/09/2024 12:[address] [facility] ANION GAP 9 5 - 18 06/09/2024 12:[address] [facility] GLUCOSE 92 70 - 99 mg/dL 06/09/2024 12:[address] [facility] CALCIUM 9.7 8.8 - 10.2 mg/dL 06/09/2024 12:[address] [facility] BUN 39(H) 8 - 23 mg/dL 06/09/2024 12:[address] [facility] CREATININE 1.31(H) 0.70 - 1.20 mg/dL 06/09/2024 12:[address] [facility] BUN/CREAT RATIO 30(H) 10 - 20 12:[address] [facility] eGFR 57(L) >90 mL/min/1.7 3m2 06/09/2024 12:[address] [facility] Comment:As of 2021, eG FR is calculated by the CKD-EPI creatinine equation without race adjustment. ??eGFR can be influenced by muscle mass, exercise, and diet. ??The reported eGFR is an estimation only and is only applicable if the renal function is stable. Blood BLOOD SPECIMEN / Unknown Venipuncture / Unknown 06/09/2024 11:43 AM CDT 06/09/2024 11:45 AM CDT Iva Johnston [facility] CHEMISTRY [facility] [address] [place] [address] * EP CARDIOVERSION (05/27/2024 9:10 AM CDT) Anatomical Region Laterality Modality X-Ray Angiograph y Narrative 05/27/2024 9:10 AM CDT Kathi Mcmanus PA ? 05/27/2024 ??9:[address] [facility] Cardiac Electrophysiology Procedure Note DOS: 05/27/2024 [...] 200 J shock was delivered with successful caodaism AP-VS rhythm, VRs 70s. ?? Complications: ??No acute complications. ?? Plan: ?? Rain Centeno is now recovering from sedation and anticipate discharge home later today. Dr. Cuadra was the collaborating physician throughout the time services were performed. Kathi Mcmanus PA-C [facility] Cardiac Electrophysiology Services Seamus Cole MD CV IMAGING * EKG (05/27/2024 9:09 AM CDT) Only the most recent of13 resultswithin the time period is included. Interpretation [...] NOW QTc 514 ms BEYOND NOW P Dudley degrees BEYOND NOW R Dudley -37 degrees BEYOND NOW T Dudley 71 degrees BEYOND NOW 05/27/2024 9:09 AM CDT 05/28/2024 1:34 PM CDT Narrative BEYOND NOW - 05/28/2024 1:34 PM CDT Test Indication: POST DCCV Kathi Mcmanus PA EKG ORD Performing Organization Address City/[facility]/ZIP Co de Phone Number BEYOND NOW [place], [place] * POTASSIUM,ISTAT (05/27/2024 8:04 AM CDT) Only the most recent of6 resultswithin the time period is included. POTASSIUM, POCT 3.7 3.5 - 5.0 mmol/L 05/28/2024 8:30 AM CDT [facility] Blood BLOOD SPECIMEN / Unknown 05/27/2024 8:04 AM CDT 05/28/2024 8:30 AM CDT Seamus Cole MD CHEMISTRY Performing Organization Address [facility] de Phone Number [facility] [address] [place] [address], * SCAN-CARDIAC STRIP (05/27/2024 12:00 AM CDT) Narrative 05/27/2024 12:00 AM CDT Ordered by an unspecified provider. Other Clinical Staff OTHER * ALT (SGPT) (05/20/2024 11:09 AM CDT) Only the most recent of3 resultswithin the time period is included. ALT (SGPT) 28 10 - 50 IU/L 05/20/2024 2:49 PM CDT [facility] Blood BLOOD SPECIMEN / Unknown Venipuncture / Unknown 05/20/2024 11:09 AM CDT 05/20/2024 11:10 AM CDT Marquis Santana MD CHEMISTRY Performing Organization Address City/[facility] Co de Phone Number [facility] [address] [place] [address] * AST (SGOT) (05/20/2024 11:09 AM CDT) Only the most recent of3 resultswithin the time period is included. AST (SGOT) 42 10 - 50 IU/L 05/20/2024 2:39 PM CDT [facility] Blood BLOOD SPECIMEN / Unknown Venipuncture / Unknown 05/20/2024 11:09 AM CDT 05/20/2024 11:10 AM CDT Marquis Santana MD CHEMISTRY [facility] [address] [place] [address] * EP CARDIOVERSION (05/14/2024 9:46 AM CDT) Anatomical Region Laterality Modality X-Ray Angiograph y Narrative 05/14/2024 9:46 AM CDT Seamus Cole MD ? 05/17/2024 ??7:[address] [facility] Cardiac Electrophysiology Procedure Note DOS: 05/14/2024 [...] services were performed Esther Macdonald NP ?? [facility] Cardiac Electrophysiology Services Seamus Cole MD Cardiac Arrhythmia Section [facility] Seamus Cole MD CV IMAGING * SCAN-CARDIAC STRIP (05/14/2024 12:00 AM CDT) Narrative 05/14/2024 12:00 AM CDT Ordered by an unspecified provider. Other Clinical Staff OTHER * MAGNESIUM (05/13/2024 8:42 AM CDT) MAGNESIUM 1.9 1.6 - 2.4 mg/dL 05/14/2024 9:14 AM CDT [facility] Blood BLOOD SPECIMEN / Unknown Venipuncture / Unknown 05/13/2024 8:42 AM CDT 05/13/2024 8:42 AM CDT Esther Macdonald NP CHEMISTRY Performing Organization Address [facility] Co de Phone Number [facility] [address] [place] [address], * SCAN-CARDIAC STRIP (05/11/2024 1:28 PM CDT) Scanner OTHER * (ABNORMAL) ACTIVATED CLOTTING TIME [id number] ACT (05/11/2024 11:38 AM CDT) Only the most recent of6 resultswithin the time period is included. ACTIVATED CLOTTING TIME, POCT 174(H) 74 - 125 sec 05/11/2024 11:52 AM CDT [facility] Blood BLOOD SPECIMEN / Unknown 05/11/2024 11:38 AM CDT 05/11/2024 11:52 AM CDT Marquis Santana MD HEMATOLOGY Performing Organization Address City/[facility] Co de Phone Number [facility] [address] [place] [address], * EP STUDY /ABLATION (05/11/2024 8:13 AM CDT) Anatomical Region Laterality Modality X-Ray Angiograph y, X-Ray Angiography 05/11/2024 8:13 AM CDT Narrative Transcriptions Marquis Santana MD - 05/11/2024 5:20 PM CDT [facility] at [facility] Electrophysiology Procedure Report Name: RAIN CENTENO Event Date: 05/11/2024 Excellian ID #: [id number] Date: 1950 Gender: Male Age: 73 [facility] #: [id number] Procedure Performed By: MARQUIS SANTANA [facility] Referring Physician: Summary / Conclusions 1. [...] ? Same as Pre-operative diagnosis [facility]ent & [facility] Protocol [facility] protocol was followed. TIME OUT conducted just [...] micropuncturetechnique, two sheaths were introduced (one 8 Macedonian and one 7 Macedonian)into the right femoral vein, one 9 Macedonian sheath was introduced into theleft femoral vein. [...] ACT. The patient was transported to [facility] in stable condition for further monitoring. [...] Intervals Study State Underlying Rhythm Cycle Length SD PA AH HV QRS Dudley QRSMorphology Baseline Atrial Fibrillation [phone] Post Ablation [...] See Anesthesia Note Total Flouro Time: 4.5 FUNDRAISING DIRECTOR Total Flouro Dose: 7 mGy Transseptal Mean LA Pressure: 20 mmHg Staff Name Role Marquis Santana Core Winder Machine Operator Mary Juarez RN Nurse Will Dumont CVT Monitor Elayne Cano CVT Scrub Mo Clancy EPClinton Flat Examiner Medications Ordered and Administered Start Time Stop Time Medication Dose Units Route Ordered By Given By 08:15 0.25% Bupivicaine 10 mL Subcut MD Marquis Melton MD 08:16 1% Lidocaine Hydrochloride 10 mL Subcut MD Marquis Melton MD 08:19 0.25% Bupivicaine 5 mL Subcut MD Marquis Melton MD 08:19 1% Lidocaine Hydrochloride 5 mL Subcut MD Marquis Melton MD 08:25 Heparin [id number] Units IV MD Mary Melton RN 08:37 [...] with status of Final Marquis Santana MD Core Winder Machine Operator [facility] [address] [place] [address] (p) [phone](f) Marquis Santana MD CV IMAGING * HCHG INSTRUMENT DISP PR10, HCHG STYLET PR1 (05/11/2024 8:09 AM CDT) Narrative Estrella Huffman, JAREN - 05/11/2024 8:09 AM CDT Estrella Huffman [...] (ABNORMAL) PLATELET ESTIMATE (05/11/2024 6:13 AM CDT) Pathologist [facility] PLATELET ESTIMATE Platelets Clumped Unable to Determine(A) Adequate, No estimate 05/11/2024 7:24 AM CDT [facility] Blood BLOOD SPECIMEN / Unknown Venipuncture / Unknown 05/11/2024 6:13 AM CDT 05/11/2024 6:22 AM CDT Marquis Santana MD [facility] [address] [place] [address], * (ABNORMAL) CBC with Platelet no Diff (05/11/2024 6:13 AM CDT) Only the most recent of5 resultswithin the time period is included. WHITE BLOOD COUNT 8.5 4.5 - 11.0 thou/cu mm 05/11/2024 7:24 AM CDT [facility] RED BLOOD COUNT 4.01(L) 4.30 - 5.90 mil/cu mm 05/11/2024 7:24 AM CDT [facility] HEMOGLOBIN 11.5(L) 13.5 - 17.5 g/dL 05/11/2024 7:24 AM CDT [facility] HEMATOCRIT 37.5 37.0 - 53.0 % 05/11/2024 7:24 AM CDT [facility] MCV 94 80 - 100 fL 05/11/2024 7:24 AM CDT [facility] MCH 28.7 26.0 - 34.0 pg 05/11/2024 7:24 AM CDT [facility] MCHC 30.7(L) 32.0 - 36.0 g/dL 05/11/2024 7:24 AM CDT [facility] RDW 15.6(H) 11.5 - 15.5 % 05/11/2024 7:24 AM CDT [facility] PLATELET COUNT 05/11/2024 7:24 AM CDT [facility] Comment: Platelet clumped, unable to determine This is a corrected result. Previously reported as 108 thou/cu mm with reference range 140-440 thou/cu mm on 05/11/2024 at 0723 CDT MPV 05/11/2024 7:24 AM CDT [facility] Comment: Unable to determine This is a corrected result. Previously reported as 11.6 fL with reference range 6.5-11.0 fL on 05/11/2024 at 0723 CDT NRBC 0.0 % 05/11/2024 7:24 AM CDT [facility] ABS NRBC 0.0 thou /cu mm 05/11/2024 7:24 AM CDT [facility] Blood BLOOD SPECIMEN / Unknown Venipuncture / Unknown 05/11/2024 6:13 AM CDT 05/11/2024 6:22 AM CDT Marquis Santana MD HEMATOLOGY [facility] [address] [place] [address], [place] * EXTRA TUBE GOLD/SST (05/11/2024 6:10 AM CDT) Blood BLOOD SPECIMEN / Unknown Extra Tube / Unknown 05/11/2024 6:10 AM CDT 05/11/2024 6:23 AM CDT Marquis Santana MD LABORATORY [facility] [address] [place] [address], * SCAN-CARDIAC STRIP (05/11/2024 12:00 AM CDT) [...] DEVICE DATA Medtronic Evera MRI XT DR [id number] SN: [id number] Implant Date 08/03/2019 LEAD DATA Atrial Lead: Medtronic 5076 - 52 MRI SN: [id number] Implant Date 08/03/2019 RV Lead: Medtronic 6935M - 62 MRI SN: [id number] Implant Date 08/03/2019 Tachy therapy hx: none 01/2023 Presence of a glassed feedthrough creates increased risk of unexpected HV arching within the header during therapy delivery. All HV pathways have been programmed B>AX. Hx: ??DCCV 04/30/24 DCCV ??04/19/24 Location of evaluation: [facility] P/R 18 post Cardioversion Reason for [...] past two weeks from his device: per system software programmer reason for alert was that it was unable to send a transmission. ??Patient and family confirm that bedside monitor is plugged in. ??Provided family with [employer] Support number in case this happens again. Follow up: as previously scheduled [facility] remote on 06/25/24 prior to seeing Rosemarie Senior NP in [place] Routine follow up: Every 3 - 4 months via [facility] remote with annual [place] or clinic with Dr. Santana each February. Susana Joyner, RN Nurse Clinician II [facility] Pacemaker/ICD Clinic [phone] Marquis Santana MD CARDIAC SERVICES ORD * EP CARDIOVERSION (04/30/2024 12:06 PM CDT) Anatomical Region Laterality Modality X-Ray Angiograph y Narrative 04/30/2024 12:06 PM CDT Nora Lara NP ? 04/30/2024 12:[address] [facility] Cardiac Electrophysiology Procedure Note DOS: 04/30/2024 [...] time services were performed Nora Lara NP [facility] Cardiac Electrophysiology Marquis Santana MD CV IMAGING * SCAN-CARDIAC STRIP (04/30/2024 12:00 AM CDT) Narrative 04/30/2024 12:00 AM CDT Ordered by an unspecified provider. Other Clinical Staff OTHER * XR HIP 2 OR 3 VIEWS W PELVIS LEFT (04/27/2024 10:24 AM CDT) Only the most recent of3 resultswithin the time period is included. Anatomical [...] was performed at the [facility] in [place] and interpreted by Riaz Peterson MD. HISTORY: [...] - 4.20 uIU/mL 04/22/2024 2:25 PM CDT [facility] Blood BLOOD SPECIMEN / Unknown Venipuncture / Unknown 04/22/2024 1:29 PM CDT 04/22/2024 1:29 PM CDT Narrative [facility] - 04/22/2024 2:25 PM CDT In Adults, TSH values between 5.00 and 10.00 uIU/ml do not necessarily indicate the presence of Hypothyroidism. Correlation with clinical findings such as presence of goiter and/or Thyroperoxidase (TPO) Antibody may be helpful. For more information please refer to YU 2004; 291: 228-238. Marquis Santana MD CHEMISTRY [facility] [address] [place] [address] * SCAN-CARDIAC STRIP (04/19/2024 12:00 AM CDT) Narrative 04/19/2024 12:00 AM CDT Ordered by an unspecified provider. Other Clinical Staff OTHER * SCAN-ELECTROMYOGRAM EMG (04/15/2024 12:00 AM CDT) Scanner OTHER * EP CARDIOVERSION (04/08/2024 2:44 PM CDT) Anatomical Region Laterality Modality X-Ray Angiograph y Narrative 04/08/2024 2:44 PM CDT Seamus Cole MD ? 04/08/2024 ??4:[address] [facility] Cardiac Electrophysiology Procedure Note DOS: 04/08/2024 [...] time services were performed David Ugarte NP [facility] Cardiac Electrophysiology Seamus Cole MD Cardiac Arrhythmia Section [facility] Marquis Santana MD CV IMAGING * [...] @ Alonzo ??2 2023 ??3:21PM (Electronically Signed) [email or web address] Narrative 03/30/2024 3:21 PM CDT For Patients: [...] @ Mar 30 2024 3:21PM (Electronically Signed) [email or web address] Riaz Peterson MD GENERAL IMAGING * SCAN-CARDIAC STRIP (03/19/2024 9:21 AM CDT) Scanner OTHER * (ABNORMAL) HEPATIC FUNCTION PANEL (03/19/2024 4:50 AM CDT) Only the most recent of4 resultswithin the time period is included. ALBUMIN 3.3(L) 4.0 - 4.9 g/dL 03/19/2024 5:44 AM CDT [facility] PROTEIN,TOTAL 6.1 6.0 - 8.0 g/dL 03/19/2024 5:44 AM CDT [facility] BILIRUBIN,TOTAL 0.5 0.0 - 1.2 mg/dL 03/19/2024 5:44 AM CDT [facility] BILIRUBIN,DIRECT 0.2 0.0 - 0.3 mg/dL 03/19/2024 5:44 AM CDT [facility] BILIRUBIN,INDIRE CT 0.3 0.2 - 0.8 mg/dL 03/19/2024 5:44 AM CDT [facility] ALK PHOSPHATASE 122 40 - 129 IU/L 03/19/2024 5:44 AM CDT [facility] ALT (SGPT) 37 10 - 50 IU/L 03/19/2024 5:44 AM CDT [facility] AST (SGOT) 56(H) 10 - 50 IU/L 03/19/2024 5:44 AM CDT [facility] Blood BLOOD SPECIMEN / Unknown Venipuncture / Unknown 03/19/2024 4:50 AM CDT 03/19/2024 5:14 AM CDT Varghese Mckenna MD CHEMISTRY Performing Organization Address City/[facility]/ZIP Co de Phone Number [facility] [address] [address], [place] * SCAN-CARDIAC STRIP (03/19/2024 12:01 AM CDT) Scanner OTHER * (ABNORMAL) GLUCOSE METER (03/18/2024 8:36 PM CDT) Only the most recent of12 resultswithin the time period is included. [facility] Signature GLUCOSE METER 172(H) 65 - 100 mg/dL 03/18/2024 11:27 PM CDT [facility] Blood BLOOD SPECIMEN / Unknown 03/18/2024 8:36 PM CDT 03/18/2024 11:27 PM CDT Lee Carrillo MD CHEMISTRY [facility] [address] [place] [address], [place] * US ARTERIAL LOWER EXTREMITY LEFT [...] - 4.20 uIU/mL 03/17/2024 10:19 PM CDT [facility] Blood BLOOD SPECIMEN / Unknown Venipuncture / Unknown 03/17/2024 4:18 AM CDT 03/17/2024 4:35 AM CDT Narrative [facility] - 03/17/2024 10:19 PM CDT In Adults, TSH values between 5.00 and 10.00 uIU/ml do not necessarily indicate the presence of Hypothyroidism. Correlation with clinical findings such as presence of goiter and/or Thyroperoxidase (TPO) Antibody may be helpful. For more information please refer to YU 2004; 291: 228-238. Shane Ramires DO CHEMISTRY [facility] [address] [place] [address], [place] * T4,FREE (03/17/2024 4:18 AM CDT) T4,FREE 1.37 0.93 - 1.70 ng/dL 03/17/2024 10:51 PM CDT [facility] Blood BLOOD SPECIMEN / Unknown Venipuncture / Unknown 03/17/2024 4:18 AM CDT 03/17/2024 4:35 AM CDT Shane Ramires DO CHEMISTRY Performing Organization Address City/[facility]/ZIP Co de Phone Number [facility] [address] [place] [address], * CK TOTAL (03/17/2024 4:18 AM CDT) Pathologist [facility] CK,TOTAL 133 39 - 308 IU/L 03/17/2024 9:43 PM CDT [facility] Blood BLOOD SPECIMEN / Unknown Venipuncture / Unknown 03/17/2024 4:18 AM CDT 03/17/2024 4:35 AM CDT Shane Rosales Kiahpreston CHEMISTRY Performing Organization Address [facility] Co de Phone Number [facility] [address] [place] [address], * CALCIUM IONIZED HOSPITAL DRAW ONLY (03/17/2024 4:18 AM CDT) Only the most recent of3 resultswithin the time period is included. Pathologist [facility] CALCIUM,IONIZE D 1.18 1.15 - 1.27 mmol/L 03/17/2024 4:41 AM CDT [facility] Blood BLOOD SPECIMEN / Unknown Venipuncture / Unknown 03/17/2024 4:18 AM CDT 03/17/2024 4:35 AM CDT Estrella Flores MD CHEMISTRY Performing Organization Address [facility] Co de Phone Number [facility] [address] [place] [address], * SCAN-CARDIAC STRIP (03/16/2024 7:21 PM CDT) Scanner OTHER * (ABNORMAL) URINALYSIS MICROSCOPIC (03/16/2024 4:32 PM CDT) [facility] RBC 0-2 0-2, None Seen /HPF 03/16/2024 4:49 PM CDT [facility] WBC 0-2 0-2, 3-5, None Seen /HPF 03/16/2024 4:49 PM CDT [facility] BACTERIA None Seen None Seen, Rare, Few Bacteria/ HPF 03/16/2024 4:49 PM CDT [facility] EPITHELIAL CELLS None Seen None Seen, Few Epi/HPF 03/16/2024 4:49 PM CDT [facility] HYALINE CASTS 11-25(A) 0-2, 3-5 /LPF 03/16/2024 4:49 PM CDT [facility] Urine URINE SPECIMEN / Unknown Non-Blood / Unknown 03/16/2024 4:32 PM CDT 03/16/2024 4:40 PM CDT Lucio ARMAS URINE [facility] [address] [place] [address], [place] * (ABNORMAL) UA W/ SEDIMENT EXAM REFLEXED PER CRITERIA (03/16/2024 4:32 PM CDT) COLOR Yellow Yellow Color 03/16/2024 4:49 PM CDT [facility] CLARITY Clear Clear Clarity 03/16/2024 4:49 PM CDT [facility] SPECIFIC GRAVITY,URINE 1.015 1.010, 1.015, 1.020, 1.025 03/16/2024 4:49 PM CDT [facility] PH,URINE 5.0(A) 6.0, 7.0, 8.0, 5.5, 6.5, 7.5, 8.5 03/16/2024 4:49 PM CDT [facility] UROBILINOGEN, QUALITATIVE Normal Normal EU/dl 03/16/2024 4:49 PM CDT [facility] PROTEIN, URINE Trace(A) Negative mg/dL 03/16/2024 4:49 PM CDT [facility] GLUCOSE, URINE >=1000(A) Negative mg/dL 03/16/2024 4:49 PM CDT [facility] KETONES,URINE Negative Negative mg/dL 03/16/2024 4:49 PM CDT [facility] BILIRUBIN,URI NE Negative Negative 03/16/2024 4:49 PM CDT [facility] OCCULT BLOOD,URINE Negative Negative 03/16/2024 4:49 PM CDT [facility] NITRITE Negative Negative 03/16/2024 4:49 PM CDT [facility] LEUKOCYTE ESTERASE Negative Negative 03/16/2024 4:49 PM CDT [facility] Urine URINE SPECIMEN / Unknown Non-Blood / Unknown 03/16/2024 4:32 PM CDT 03/16/2024 4:40 PM CDT Lucio ARMAS URINE [facility] [address] [place] [address], * PROCALCITONIN (03/16/2024 4:08 PM CDT) PROCALCITONIN 0.04 ng/ml 03/16/2024 4:59 PM CDT [facility] Blood BLOOD SPECIMEN / Unknown Butterfly / Unknown 03/16/2024 4:08 PM CDT 03/16/2024 4:18 PM CDT Narrative [facility] - 03/16/2024 4:59 PM CDT Procalcitonin [...] ng/mL are obtained. Lucio ARMAS SEND OUTS [facility] [address] [place] [address], * BLOOD CULTURE (03/16/2024 4:08 PM CDT) Only the most recent of2 resultswithin the time period is included. CULTURE No Growth. 03/20/2024 7:10 PM CDT [facility] Blood BLOOD SPECIMEN / Unknown Butterfly / Unknown 03/16/2024 4:08 PM CDT 03/16/2024 4:18 PM CDT Narrative [facility] - 03/20/2024 7:10 PM CDT Low volume blood culture received; possible false negative culture. Lucio ARMAS MICROBIOLOGY [facility] [address] [place] [id number] * ICD ANALYSIS DUAL WITHOUT REPROGRAM (03/16/2024 3:32 PM CDT) Narrative Marquis Santana MD - 03/16/2024 3:32 PM CDT Cyndi Arnold RN ? 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 All HV pathways have been programmed B>AX. Location of evaluation: [facility] Reason for evaluation: Provider Request MEASUREMENTS Atrial [...] 4 months via [facility] remote with annual [place] or clinic with Dr. Santana each February. Cyndi Arnold, RN Nurse Clinician II [facility] Pacemaker/ICD Clinic Marquis Santana MD CARDIAC SERVICES ORD * EXTRA TUBE LIGHT GREEN (03/16/2024 1:23 PM CDT) Blood BLOOD SPECIMEN / Unknown Non-Lab Venipuncture / Unknown 03/16/2024 1:23 PM CDT 03/16/2024 1:33 PM CDT Estrella Flores MD LABORATORY [facility] [address] [place] [address], * (ABNORMAL) BLOOD GAS,VENOUS (03/16/2024 1:23 PM CDT) PH, VENOUS 7.31(L) 7.32 - 7.43 03/16/2024 1:36 PM CDT [facility] PCO2, VENOUS 68(H) 41 - 51 mmHg 03/16/2024 1:36 PM CDT [facility] PO2, VENOUS 63(H) 35 - 40 mmHg 03/16/2024 1:36 PM CDT [facility] HCO3,VENOUS 34(H) 22 - 29 mmol/L 03/16/2024 1:36 PM CDT [facility] BASE EXCESS, VENOUS, POCT 5.6(H) -2.0 - 3.0 03/16/2024 1:36 PM CDT [facility] O2 SATURATION, VENOUS 93(H) 70 - 75 % 03/16/2024 1:36 PM CDT [facility] PATIENT TEMPERATURE 37.0 Degrees C 03/16/2024 1:36 PM CDT [facility] Blood VENOUS BLOOD SPECIMEN / Unknown Butterfly / Unknown 03/16/2024 1:23 PM CDT 03/16/2024 1:31 PM CDT Estrella Flores MD CHEMISTRY [facility] [address] * LACTATE VENOUS (03/16/2024 1:22 PM CDT) LACTATE,VENOUS 0.8 0.5 - 2.0 mmol/L 03/16/2024 2:38 PM CDT [facility] Blood BLOOD SPECIMEN / Unknown Butterfly / Unknown 03/16/2024 1:22 PM CDT 03/16/2024 1:31 PM CDT Lucio ARMAS CHEMISTRY [facility] [address] [place] [address], [place] * (ABNORMAL) HEMOGLOBIN (03/16/2024 1:22 PM CDT) HEMOGLOBIN 11.1(L) 13.5 - 17.5 g/dL 03/16/2024 1:39 PM CDT [facility] MCV 101(H) 80 - 100 fL 03/16/2024 1:39 PM CDT [facility] Blood BLOOD SPECIMEN / Unknown Butterfly / Unknown 03/16/2024 1:22 PM CDT 03/16/2024 1:31 PM CDT Lucio ARMAS HEMATOLOGY Performing Organization Address City/[facility]/ZIP Co de Phone Number [facility] [address] [place] [address], [place] * (ABNORMAL) FACTOR 10 CHROMOGENIC (03/16/2024 1:22 PM CDT) FACTOR 10 CHROMOGENIC 41(L) 65 - 130 % 03/16/2024 1:46 PM CDT [facility] Blood BLOOD SPECIMEN / Unknown Butterfly / Unknown 03/16/2024 1:22 PM CDT 03/16/2024 1:31 PM CDT Narrative [facility] - 03/16/2024 1:46 PM CDT Therapeutic Range 20-40% Lucio ARMAS SEND OUTS [facility] [address] [address], [place] * CORTISOL TOTAL (03/16/2024 10:29 AM CDT) CORTISOL,TOTAL 15.0 ug/dL 03/16/2024 1:29 PM CDT [facility] Blood BLOOD SPECIMEN / Unknown Non-Lab Venipuncture / Unknown 03/16/2024 10:29 AM CDT 03/16/2024 10:35 AM CDT Narrative [facility] - 03/16/2024 1:29 PM CDT Cortisol ?Morning Hours ?6:00 ??AM - 10:00 AM ?(4.8-19.5 ug/dL) Cortisol ?Afternoon Hours ??4:00 ??PM - ??8:00 PM ?(2.5-11.9 ug/dL) ? Biotin supplements may cause clinically significant interference for this test assay. ??If interference is suspected, it is strongly recommended that biotin is discontinued for at least one week prior to retesting. Estrella Flores MD CHEMISTRY [facility] [address] [place] [address], * ECHO TTE LIMITED W CONTRAST W COLOR W DOPPLER (03/16/2024 10:23 AM CDT) AORTIC VALVE MEAN PG 7 mmHg EJECTION FRACTION 50 - 55% Anatomical Region Laterality Modality Ultrasound 03/16/2024 9:42 AM CDT Narrative 03/16/2024 11:06 AM CDT ECHOCARDIOGRAM RAIN CENTENO ? Accession#: ?? [id number] : ?1950 73 years Study Date: ?? 03/16/2024 9:42:01 AM Gender: M ?BP: ? 84/55 mmHg Height: 137.00 cm ?BSA: ?2.42 m? ? ? Weight: 200.00 kg ?Tech: ? OLL ? Referring MD: ESTRELLA FLORES Site: ? [facility] Reading Location: ANW IP Patient [...] documentation: 2 ml diluted Definity, lot #[id number], [facility]# [id number] was administered peripherally to enhance visualization of all left ventricular segments. . This study was interpreted by an [facility] accredited facility. ??Final ?? Procedure Note Leonel Montanez MD - 03/16/2024 ECHOCARDIOGRAM RAIN CENTENO : 1950 73 years Study Date: 03/16/2024 9:42:01 AM Gender: M BP: 84/55 mmHg Height: 137.00 cm BSA: 2.42 m? ? ? Weight: 200.00 kg Tech: ANGIE Referring MD: ESTRELLA FLORES Site: [facility] Reading Location: [facility] IP Patient [...] documentation: 2 ml diluted Definity, lot #[id number], [facility]#[id number] was administered peripherally to enhance visualization of allleft ventricular segments. . This study was interpreted by an [facility] accredited facility. Final Estrella Flores [...] size Varghese Mckenna MD PROCEDURE ORD * CT CHEST ABDOMEN PELVIS W (03/15/2024 [...] (Electronically Signed) Janina Valero MD CT * (ABNORMAL) LIPID PANEL (01/07/2018 4:35 PM CDT) CHOLESTEROL,TOTAL 174 100 - 199 mg/dL 01/07/2018 6:28 PM CDT [facility] TRIGLYCERIDES 194(H) <150 mg/dL 01/07/2018 6:28 PM CDT [facility] HDL CHOLESTEROL 64 >40 mg/dL 8 6:28 PM CDT [facility] NON-HDL CHOLESTEROL 110 <145 mg/dl 01/07/2018 6:28 PM CDT [facility] CHOL/HDL RATIO 2.72 <4.50 01/07/2018 6:28 PM CDT [facility] LDL CHOLESTEROL 71 <=130 mg/dL 01/07/2018 6:28 PM CDT [facility] PROVIDER ORDERED STATUS RANDOM 01/07/2018 6:28 PM CDT [facility] Blood BLOOD SPECIMEN / Unknown Venipuncture / Unknown 01/07/2018 4:35 PM CDT 01/07/2018 4:39 PM CDT Aba Boo MD CHEMISTRY Performing Organization Address City/State/[facility] Co de Phone Number [facility] [address] [place] [address] from Last 3 Months or Most Recently [...] Comments Code Status Discussion: Other Care Teams Associate Curator Relationship Specialty Start Date End Date Aba Boo MD [address] [place] [address] PCP - General Family Practice 11/18/19 Destin Johnston MD [address] [place] [phone] Cardiology - CHF Cardiovascular Disease 04/14/20 Nurses, Advanced Heart Failure [address] [place] [id number] Advanced Heart Failure/Transplant Card 04/14/20
--- OUTSIDE RECORDS SUMMARY | 2024-06-16 12:54 | XMS_ITS | Clinical Summary ---
Author Organization [facility] Address [address] [place] [address] Care Team Providers Care Usability Engineer Name Role Phone Clinician, Not Found MD Primary Care Provider Un available Source Comments You are receiving this document as you are listed as the primary care provider,follow-up provider, or the patient has been referred to you for consultation.This is in compliance with the Medicare and[facility] EHR Incentive Program,which states Providers who transition their patient to another setting of careor provider of care or refers their patient to another provider of care shouldprovide summary care record for each transition of care or referral. Risk Ident Allergies No known active allergies Medications Medication [...] 020 Overview (06/15/2020): By Dr. Murrieta at [facility]. Ascending aorta dilation 06/15/2020 Overview (06/15/2020): [...] 04/28/2023 023, 06/24/2013 COVID-19 Vaccine (4 - 2023-2 5 season) 2024 06/27/2021, 12/10/2020, 11/19/2020 Influenza (#1) 2024 07/19/2021, 07/09/2019, 06/24/2013 RSV (1 - 1-dose 75+ series) 2025 DTaP/Tdap/Td (2 - Tdap) 05/14/2032 05/14/2022 Pneumococcal [...] this topic Medical Devices Implanted Type Area Clinical Case Manager Device Identifier Shelf Expiration Date Model / Serial / Lot [employer] R 1x40 - [id number] Implanted:Qty: 2 on 06/15/2020 by Sanjay Murrieta MD at [facility] DEVICE Right: [employer] 07/29/2024 [id number] / / [id number] Patella All Poly Ply 41mm - [id number] Implanted:Qty: 1 on 06/15/2020 by Sanjay Murrieta MD at [facility] DEVICE Right: [employer] 06/28/2026 [id number] / / [id number] Comp Str Hyb St 14x+30 - [id number] Implanted:Qty: 1 on 06/15/2020 by Sanjay Murrieta MD at [facility] DEVICE Right: [employer] 11/26/2029 [id number] / / [id number] Stem Tib 5deg Szh Rt - [id number] Implanted:Qty: 1 on 06/15/2020 by Sanjay Murrieta MD at [facility] DEVICE Right: [employer] 01/26/2029 [id number] / / [id number] Comp Fem Ps Ccr Ps Std Sz12 Rt - [id number] Implanted:Qty: 1 on 06/15/2020 by Sanjay Murrieta MD at [facility] DEVICE Right: [employer] 06/28/2029 [id number] / / [id number] Asf Ps Ve 10mm 1012 Gh Rt - [id number] Implanted:Qty: 1 on 06/15/2020 by Sanjay Murrieta MD at [facility] DEVICE Right: [employer] 04/28/2021 [id number] / / [id number] Advance Directives * Full Code (Latest Code Status on File) Date Activated Date Inactivated Comments 06/15/2020 2:08 PM 06/17/2020 2:45 PM Care Teams Usability Engineer Relationship Specialty Start Date End Date Clinician, Not Found, [place] [address] PCP - General 06/23/20
--- OUTSIDE RECORDS SUMMARY | 2024-06-16 12:54 | XMS_ITS | Encounter Summary ---
Author Organization [email or web address] Address [address] [address] Care Team Providers Care Core Blower Operator Name Role Phone Clinician, Not Found MD Primary Care Provider Un available Reason for Visit * Reason Comments Questions Encounter Details Date Type Department Care Team (Late st Contact Info) Description 12/30/2023 Telephone [facility] [address], [place] [address] Zakia Carrillo, PEDIGREE RESEARCHER, SALES LEDGER CLERK [address] [place] [address] Questions Social History Tobacco Use Types Packs/Day [...] [place] * Erendira Prince - 12/30/2023 3:02 PM [...] can we send you a message in [employer]? No [Director Of Digital Platforms/Vet Tech: Relay to patient; We make every effort to get back to you sameday, however it may take 1-2 business days depending on the nature of the communication.] documented in this encounter Plan of Treatment Not on file documented as of this encounter Visit Diagnoses Not on filedocumented in this encounter Care Teams Core Blower Operator Relationship Specialty Start Date End Date Clinician, Not Found, [place] [address] PCP - General 06/23/20 documented as of this encounter
== END 2024-06-16 12:53 | disposition home or self-care (01) ==
LOC: WOUND 12:52
PROVIDERS: PCP Family Medicine; Visit Provider Surgery
DX: I87.332 Chronic venous hypertension (idiopathic) with ulcer and inflammation of left lower extremity (principal); I89.0 Lymphedema, not elsewhere classified; L97.822 Non-pressure chronic ulcer of other part of left lower leg with fat layer exposed
CPT/HCPCS: 97597

== ENCOUNTER 2024-06-17 11:29 | Outpatient (CLI) | payer MEDICARE, BC, SELFPAY ==
--- OUTSIDE RECORDS SUMMARY | 2024-06-17 11:33 | XMS_ITS | Clinical Summary ---
Author Organization [employer] [facility] Address [place], [place] [address] Care Team Providers Care Cat Swamper Name Role Phone Aba Boo MD Primary Care Provider + Destin Johnston MD Unavailable [phone] Nurses, Advanced Heart Failure Unavailable + Allergies [...] type, unspecified whether angina present, unspecified whether [place] or transplanted heart Take 1 Tablet (10 [...] and secondary concerned persons: Spouse Alexus Centeno [phone] Daughter Zuri [phone] Hypothyroidism 09/10/2011 Atrial fibrillation Overview (12/07/2013): - [...] blood culture 10/18/202302/16 Hypotension 10/11/2023 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 09/18/2011 12/03/2015 Osteoarth [...] Type Department Care Team Description 06/15/2024 Telephone [facility] [address] [place] [address] Sanjay Lazaro MD Questions 06/10/2024 8:00 AM CDT Office Visit [address] [place] [address] Destin Johnston MD Follow Up (F/U PER [...] should be on it again.) 06/10/2024 Telephone [facility] [address] [facility] [address] [place] [phone] Riaz Peterson MD Questions 06/09/2024 11:30 AM CDT Orders Only [facility] [address] [place] [address] Lab, [facility] Lab 06/09/2024 Travel 06/08/2024 Orders Only [facility] [place] [address] [place] [phone] Sanjay Lazaro MD <No scans attached> 06/08/2024 Telephone [facility] [place] [address] [facility] [address] [address] Jono Peters MD Appointment 06/02/2024 9:45 AM CDT Office Visit [facility] [address] [facility] [address] [place] [address] Sanjay Lazaro MD Hand Pain/problem (Right wrist numbness/tingling) 06/02/2024 Orders Only [facility] [place] [address] [place] [phone] Sanjay Lazaro MD <No scans attached> 06/02/2024 Travel 05/27/2024 9:04 AM CDT Anesthesia Event [facility] [address] [place] [address] Erendira Velez MD Riley, Benjamin William, CRNA 05/27/2024 7:15 AM CDT - 05/27/2024 10:24 AM CDT Hospital Encounter [facility] [address] [place] [address] Seamus Cole MD Atrial fibrillation, persistent (HC) Discharge Disposition: Home Self Care 05/27/2024 Travel 05/24/2024 8:30 AM CDT Office Visit [facility] [address] [facility] [address] [place] [address] Iva Johnston CNS Follow Up (CHF FOLLOWUP /POST ABLATION DONE ON 05/11... Post modified diuretic with CMP post ablation/LABS PRIOR IN [place]/I42.9 (ICD-10-CM) - Primary cardiomyopathy (HC)/I50.23 (ICD-10-CM) - Acute on chronic HFrEF (heart failure with reduced ejection fraction) (HC) /PT states feeling ok./Went into afib a couple days later going back on ) 05/24/2024 Telephone [facility] [address] [phone] Riaz Peterson MD Error-please disregard 05/24/2024 Travel 05/20/2024 12:00 PM CDT Orders Only [facility] [address] [place] [address] Lab, [facility] Lab 05/20/2024 Telephone [facility] [address] [facility] [address] [place] [phone] Seamus Cole MD Atrial Fibrillation 05/20/2024 Travel 05/19/2024 Telephone [facility] [address] [place] [address] Destin Johnston MD Medication Management 05/19/2024 Telephone [facility] [address] [facility] [address] [place] [phone] Marquis Santana MD Medication Management 05/19/2024 Telephone [facility] [address] [phone] Susana Joyner I, RN Device Check 05/19/2024 Telephone [facility] [address] [address] Marquis Santana MD Device Check 05/19/2024 Telephone [facility] [address] [address] Erendira Sotomayor, MANAGER PET Weight 05/14/2024 9:37 AM CDT Anesthesia Event [facility] [address] [place] [address] Aba Valerio MD 05/14/2024 7:10 AM CDT - 05/14/2024 11:40 AM CDT Hospital Encounter [facility] [address] [place] [address] Seamus Cole MD Atrial fibrillation, persistent (HC) Discharge Disposition: Home Self Care 05/14/2024 Travel 05/13/2024 9:20 AM CDT Orders Only [facility] [address] [facility] [address] [place] [address] Lab 05/13/2024 Telephone [facility] [address] [address] Martha Warner RN 05/13/2024 Telephone [facility] [address] [address] Marquis Santana MD Results (LFT and TSH results on Amiodarone) 05/12/2024 Travel 05/11/2024 7:46 AM CDT Anesthesia Event [facility] [address] [place] [address] Alan Yao DO 05/11/2024 5:41 AM CDT - 05/11/2024 5:50 PM CDT Hospital Encounter [facility] [address] [place] [address] Marquis Santana MD Kroll, Sharon Marie, CRNA Primary cardiomyopathy (HC) (Primary Dx); Acute on chronic HFrEF (heart failure with reduced ejection fraction) (HC) Discharge Disposition: Home Self Care 05/11/2024 Travel 05/04/2024 Telephone [facility] [address] [phone] Marquis Santana MD Medication Management 05/04/2024 Telephone [facility] [address] [address] Guadalupe Rosado RN Appointment 05/03/2024 Telephone [facility] [address] [phone] Marquis Santana MD Concerns (AFIB) 04/30/2024 12:03 PM CDT Anesthesia Event [facility] [address] [place] [address] Aba Valerio MD Wilson, Timothy Eric, CRNA 04/30/2024 10:08 AM CDT - 04/30/2024 3:03 PM CDT Hospital Encounter [facility] [address] [address] Marquis Santana MD Discharge Disposition: Home Self Care 04/30/2024 Travel 04/27/2024 10:15 AM CDT Ancillary Procedure [facility] [address] [address] 04/27/2024 9:45 AM CDT Office Visit [address] [facility] [address] [place] [address] Riaz Peterson MD Recheck (EP, non-displaced left femoral neck fracture DOI:02/11/2024, x-rays) 04/27/2024 Travel 04/25/[address] [address] Dennis Barahona RN 04/22/2024 1:20 PM CDT Orders Only [facility] [address] [facility] [place] [address] [facility] 04/22/2024 Travel 04/20/2024 Telephone [facility] [address] [facility] [address] [place] [phone] Marquis Santana MD Atrial Fibrillation 04/19/2024 9:05 AM CDT Anesthesia Event [facility] [address] [place] [address] Marco Aguiar MD Wilson, Timothy Eric, CRNA 04/19/2024 7:18 AM CDT - 04/19/2024 10:53 AM CDT Hospital Encounter [facility] [address] [place] [address] David Ugarte, hCi Cuadra MD Deviley, Sarah Jean, CRNA Atrial fibrillation, unspecified type (HC) (Primary Dx) Discharge Disposition: Home Self Care 04/19/2024 Travel 04/16/2024 7:06 AM CDT - 04/16/2024 10:07 AM CDT Hospital Encounter [facility] [address] [place] [address] Marquis Santana MD Wilson, Timothy Eric, CRNA Obesity, unspecified classification, unspecified obesity type, unspecified whether serious comorbidity present (Primary Dx); Chronic systolic heart failure (HC) Discharge Disposition: Home Self Care 04/16/2024 7:05 AM CDT Anesthesia Event [facility] [address] [place] [address] Placido Chowdhury CRNA 04/16/2024 Travel 04/15/2024 Orders Only [facility] Scanner 1 scan: (1-Ord) SHAHAB 04/15/2024 Telephone [facility] [address] [facility] [address] [place] [phone] Lianna Dominguez RN Device Check (AF alert) 04/14/2024 Telephone [facility] [address] [place] [phone] Destin Johnston MD 04/13/2024 4:20 PM CDT Office Visit [facility] [address] [place] [address] Rosalie Senior NP Heart Problem (Paroxysmal atrial fibrillation); Primary MD (Aba Boo MD/) 04/13/2024 8:00 AM CDT Office Visit [facility] [address] [place] [address] Destin Johnston MD CV Heart Failure Est (STAT - IN PERSON F/U VISIT. LABS PRIOR @ [facility] /Acute on chronic HFrEF (heart failure with reduced ejection fraction) //pt states he is in a-fib. He got converted on and went to primary yesterday to confirm he is in A-fib still.//) 04/13/2024 Travel 04/10/2024 Telephone [facility] [address] [facility] [address] [place] [phone] Marquis Banda RN Device Check (Patient thinks he back in AF) 04/08/2024 2:40 PM CDT Anesthesia Event [facility] [address] [place] [address] Zion Leigh MD 04/08/2024 12:19 PM CDT - 04/08/2024 3:58 PM CDT Hospital Encounter [facility] [address] [place] [address] Marquis Santana MD Wilson, Timothy Eric, CRNA Kushins, Stephen Isaac, MD Persistent atrial fibrillation (HC) (Primary Dx) Discharge Disposition: Home Self Care 04/08/2024 Travel 04/07/2024 Telephone [facility] [address] [facility] [address] [place] [phone] Marquis Santana MD Schedule Cardioversion 04/05/2024 10:30 AM CDT Office Visit [address] [phone] Kathleen Boyer PA Follow Up (follow up) 04/05/2024 Travel 04/02/2024 Telephone [facility] [address] [place] [address] Susana Joyner I, RN Device Check 04/02/2024 Telephone [facility] [address] [place] [address] Destin Johnston MD Concerns (Defib beeping ) 03/30/2024 9:55 AM CDT Ancillary Procedure [address] [address] 03/30/2024 9:50 AM CDT Ancillary Procedure [address] [address] 03/30/2024 9:30 AM CDT Office Visit [address] [address] Riaz Peterson MD Hip Pain/problem (left hip pain); Chest Injury (left side rib pain) 03/30/2024 Travel 03/29/[address] [address] Riaz Peterson MD Questions 03/22/2024 Telephone [facility] [address] [place] [phone] Destin Johnston MD Follow Up (BP update) 03/19/2024 Orders Only [facility] [address] [place] [address] Destin Johnston MD <No scans attached> 03/15/2024 10:28 PM CDT - 03/19/2024 11:22 AM CDT Hospital Encounter [facility] [address] [place] [address] Alan De Santiago MD Kiberenge, MD Kaleb Monroy, MD Keyla Mcgarry, DO Gerardo Lundberg, Lee Kennedy MD [facility]ists Of Left displaced femoral neck fracture [...] Care Team (Late st Contact Info) Description 06/17/2024 12:00 PM CDT Orders Only [facility] [address] [place] [address] Lab, [facility] 06/25/2024 Cardiac Device Check [facility] [phone] 06/29/2024 2:20 PM CDT Office Visit [facility] [address] [address] Rosalie Senior NP [address] [place] [address] 07/07/2024 11:30 AM CDT Office Visit [facility] [address] [place] [address] Chai Espinosa DPM [address] [place] [address] 07/09/2024 10:38 AM CDT Hospital Encounter [facility] [address] [place] [address] Sanjay Lazaro MD [address] [address] 07/09/2024 10:38 AM CDT - 07/09/2024 11:57 AM CDT Surgery [facility] [address] [place], [place] [phone] Sanjay Lazaro MD [address] [place] [address] RIGHT OPEN CARPAL TUNNEL RELEASE. 07/21/2024 11:00 AM CDT Office Visit [facility] [address] [place], [place] [address] Janeth Resendez PA [address] [place] [address] Scheduled Procedures Name Priority Associated Diagnoses Date/Ti [...] Completed 03/15/2024 Medical Devices Implanted Type Area Boat Canvas Installer Device Identifier Shelf Expiration Date Model / Serial / Lot Graft Alexa 34mm - [id number] Implanted:Qty: 1 on 09/09/2011 at [facility] [place] [id number] / / Procedures Procedure Name Priority Date/Time [...] DIFF CARLOS 03/17/2024 4:[address] CHEST ABDOMEN PELVIS W STAT 03/15/2024 2:02 PM CDT LIPID PANEL Routine 01/07/2018 4:35 PM CDT Hypertension from Last 3 Months or Most Recently Relevant to Health Maintenance Results * (ABNORMAL) PRO-BNP (06/09/2024 11:43 AM CDT) Only the most recent of4 resultswithin the time period is included. PRO-BNP 730(H) <125 pg/mL 06/09/2024 12:42 PM CDT [facility] Blood BLOOD SPECIMEN / Unknown Venipuncture / Unknown 06/09/2024 11:43 AM CDT 06/09/2024 11:45 AM CDT Narrative [facility] - 06/09/2024 12:42 PM CDT The [...] acute congestive heart failure. ? Iva Johnston ENTRY LEVEL MECHANICAL ENGINEER SEND OUTS [facility] [address] [place] [address] * (ABNORMAL) BASIC METABOLIC PANEL (06/09/2024 11:43 AM CDT) Only the most recent of8 resultswithin the time period is included. SODIUM 142 136 - 145 mmol/L 06/09/2024 12:42 PM CDT [facility] POTASSIUM 3.9 3.5 - 5.1 mmol/L 06/09/2024 12:42 PM T [facility] CHLORIDE 97(L) 98 - 107 mmol/L 06/09/2024 12:42 PM T [facility] CO2,TOTAL 36(H) 22 - 29 mmol/L 06/09/2024 12:42 PM T [facility] ANION GAP 9 5 - 18 06/09/2024 12:42 PM [facility] GLUCOSE 92 70 - 99 mg/dL 06/09/2024 12:42 PM [facility] CALCIUM 9.7 8.8 - 10.2 mg/dL 06/09/2024 12:42 PM [facility] BUN 39(H) 8 - 23 mg/dL 06/09/2024 12:42 PM [facility] CREATININE 1.31(H) 0.70 - 1.20 mg/dL 06/09/2024 12:42 PM [facility] BUN/CREAT RATIO 30(H) 10 - 20 12:42 PM [facility] eGFR 57(L) >90 mL/min/1.7 3m2 06/09/2024 12:42 PM [facility] Comment:As of 2021, eG FR is calculated by the CKD-EPI creatinine equation without race adjustment. ??eGFR can be influenced by muscle mass, exercise, and diet. ??The reported eGFR is an estimation only and is only applicable if the renal function is stable. Blood BLOOD SPECIMEN / Unknown Venipuncture / Unknown 06/09/2024 11:43 AM CDT 06/09/2024 11:45 AM CDT Iva Johnston [facility] CHEMISTRY [facility] [address] [place] [address] * EP CARDIOVERSION (05/27/2024 9:10 AM CDT) Anatomical Region Laterality Modality X-Ray Angiograph y Narrative 05/27/2024 9:10 AM CDT Kathi Mcmanus PA ? 05/27/2024 ??9:11 AM [facility] Cardiac Electrophysiology Procedure Note DOS: 05/27/2024 Brief History: ??Rain Centeno is a pleasant 73 y.o. with history of atrial arrhythmias who now presents to [facility] NPO since midnight for direct current cardioversion. ??Anticoagulated with Xarelto 20 mg daily and no missed doses for at least 3 consecutive weeks. ?? Procedure Description: ??Time out was called. ??Brief general anesthesia by anesthesia service. ??Cardioversion patches were placed in an anterior/posterior position. ??One synchronized 200 J shock was delivered with successful jew AP-VS rhythm, VRs 70s. ?? Complications: ??No acute complications. ?? Plan: ?? Rain Centeno is now recovering from sedation and anticipate discharge home later today. Dr. Cuadra was the collaborating physician throughout the time services were performed. Kathi Mcmanus PA-C [facility] Cardiac Electrophysiology Services Seamus Cole MD CV [...] NOW QTc 514 ms BEYOND NOW P [place] degrees BEYOND NOW R [place] -37 degrees BEYOND NOW T [place] 71 degrees BEYOND NOW 05/27/2024 9:09 AM CDT 05/28/2024 1:34 PM CDT Narrative BEYOND NOW - 05/28/2024 1:34 PM CDT Test Indication: POST DCCV Kathi ARMAS EKG ORD BEYOND NOW [place], [place] * POTASSIUM,ISTAT (05/27/2024 8:04 AM CDT) Only the most recent of6 resultswithin the time period is included. Pathologist [facility] POTASSIUM, POCT 3.7 3.5 - 5.0 mmol/L 05/28/2024 8:30 AM CDT [facility] Blood BLOOD SPECIMEN / Unknown 05/27/2024 8:04 AM CDT 05/28/2024 8:30 AM CDT Seamus Cole MD CHEMISTRY [facility] [address] [place] [address], * SCAN-CARDIAC STRIP (05/27/2024 12:00 AM CDT) Narrative 05/27/2024 12:00 AM CDT Ordered by an unspecified provider. Other Clinical Staff OTHER * ALT (SGPT) (05/20/2024 11:09 AM CDT) Only the most recent of3 resultswithin the time period is included. ALT (SGPT) 28 10 - 50 IU/L 05/20/2024 2:49 PM CDT [facility] Blood BLOOD SPECIMEN / Unknown Venipuncture / Unknown 05/20/2024 11:09 AM CDT 05/20/2024 11:10 AM CDT Marquis Santana MD CHEMISTRY [facility] [address] [place] [address] * AST (SGOT) (05/20/2024 11:09 AM CDT) Only the most recent of3 resultswithin the time period is included. AST (SGOT) 42 10 - 50 IU/L 05/20/2024 2:39 PM CDT [facility] Blood BLOOD SPECIMEN / Unknown Venipuncture / Unknown 05/20/2024 11:09 AM CDT 05/20/2024 11:10 AM CDT Marquis Santana MD CHEMISTRY [facility] [address] [place] [address] * EP CARDIOVERSION (05/14/2024 9:46 AM CDT) Anatomical Region Laterality Modality X-Ray Angiograph y Narrative 05/14/2024 9:46 AM CDT Seamus Cole MD ? 05/17/2024 ??7:41 AM [facility] Cardiac Electrophysiology Procedure Note DOS: 05/14/2024 Brief [...] ??One 250 joules synchronized shock delivered with jew of an AV paced rhythm. ?? Complications: ??No acute complications. ?? Plan: ??Mr. Centeno is now recovering from sedation and would anticipate discharge home later today. Dr. Cole was readily available to provide assistance and direction throughout the time services were performed Esther Macdonald NP ?? [facility] Cardiac Electrophysiology Services Seamus Cole MD Cardiac Arrhythmia Section [facility] Seamus Cole MD CV IMAGING * SCAN-CARDIAC STRIP (05/14/2024 12:00 AM CDT) Narrative 05/14/2024 12:00 AM CDT Ordered by an unspecified provider. Other Clinical Staff OTHER * MAGNESIUM (05/13/2024 8:42 AM CDT) MAGNESIUM 1.9 1.6 - 2.4 mg/dL 05/14/2024 9:14 AM CDT [facility] Blood BLOOD SPECIMEN / Unknown Venipuncture / Unknown 05/13/2024 8:42 AM CDT 05/13/2024 8:42 AM CDT Esther Macdonald NP CHEMISTRY [facility] [address] [place] [address], [place] * SCAN-CARDIAC STRIP (05/11/2024 1:28 PM CDT) Scanner OTHER * (ABNORMAL) ACTIVATED CLOTTING TIME [id number] ACT (05/11/2024 11:38 AM CDT) Only the most recent of6 resultswithin the time period is included. ACTIVATED CLOTTING TIME, POCT 174(H) 74 - 125 sec 05/11/2024 11:52 AM CDT [facility] Blood BLOOD SPECIMEN / Unknown 05/11/2024 11:38 AM CDT 05/11/2024 11:52 AM CDT Marquis Santana MD HEMATOLOGY [facility] [address] [place] [address], * EP STUDY /ABLATION (05/11/2024 8:13 AM CDT) Anatomical Region Laterality Modality X-Ray Angiograph y, X-Ray Angiography 05/11/2024 8:13 AM CDT Narrative Transcriptions Marquis Santana MD - 05/11/2024 5:20 PM CDT [facility] Electrophysiology Procedure Report Name: RAIN CENTENO Event Date: 05/11/2024 [facility] ID #: [id number] Date: 1950 Gender: Male Age: 73 KOTA #: [id number] Procedure Performed By: MARQUIS SANTANA [facility] Referring Physician: Summary / Conclusions 1. Complex [...] ? Same as Pre-operative diagnosis Consent & [place] Protocol [place] protocol was followed. TIME OUT conducted just [...] micropuncturetechnique, two sheaths were introduced (one 8 Sierra [place]an and one 7 Sierra Leonean)into the right femoral vein, one 9 [place] Leonean sheath was introduced into theleft femoral vein. [...] the electrophysiology study and ablation procedure. Utilizing Kidzillionspan needle, the puncture was executed under the [...] the ACT. The patient was transported to [facility] area in stable condition for further monitoring. [...] Intervals Study State Underlying Rhythm Cycle Length AK PA AH HV QRS [place] QRSMorphology Baseline Atrial Fibrillation [phone] Post Ablation [...] See Anesthesia Note Total Flouro Time: 4.5 FORM RAISER Total Flouro Dose: 7 mGy Transseptal Mean LA Pressure: 20 mmHg Staff Name Role Marquis Santana Respite Provider Mary Juarez RN Nurse Will Dumont CVT Monitor Elayne Cano CVT Scrub Mo Clancy EPClinton Vocational Technical Education Teacher Medications Ordered and Administered Start Time Stop Time Medication Dose Units Route Ordered By Given By 08:15 0.25% Bupivicaine 10 mL Subcut MD Marquis Melton MD 08:16 1% Lidocaine Hydrochloride 10 mL Subcut MD Marquis Melton MD 08:19 0.25% Bupivicaine 5 mL Subcut MD Marquis Melton MD 08:19 1% Lidocaine Hydrochloride 5 mL Subcut MD Marquis Melton MD 08:25 Heparin 53451 Units IV MD Mary Melton, KELSEA 08:37 [...] with status of Final Marquis Santana MD Respite Provider [facility] [address] [place] [address] (p) [phone](f) Marquis Santana MD CV IMAGING * [facility] [...] From: teeth Difficulty: 0 (not difficult) Estrella Niemczyk Glogowski CARE REP ANESTHESIA PX NOTE ORDERABLES * (ABNORMAL) PLATELET ESTIMATE (05/11/2024 6:13 AM CDT) PLATELET ESTIMATE Platelets Clumped Unable to Determine(A) Adequate, No estimate 05/11/2024 7:24 AM CDT [facility] Blood BLOOD SPECIMEN / Unknown Venipuncture / Unknown 05/11/2024 6:13 AM CDT 05/11/2024 6:22 AM CDT Marquis Santana MD HEMATOLOGY [facility] [address] [place] [address], * (ABNORMAL) CBC with Platelet no Diff (05/11/2024 6:13 AM CDT) Only the most recent of4 resultswithin the time period is included. WHITE BLOOD COUNT 8.5 4.5 - 11.0 thou/cu mm 05/11/2024 7:24 AM CDT [facility] RED BLOOD COUNT 4.01(L) 4.30 - 5.90 mil/cu mm 05/11/2024 7:24 AM CDT [facility] HEMOGLOBIN 11.5(L) 13.5 - 17.5 g/dL 05/11/2024 7:24 AM T [facility] HEMATOCRIT 37.5 37.0 - 53.0 % 05/11/2024 7:24 AM CDT [facility] MCV 94 80 - 100 fL 05/11/2024 7:24 AM CDT [facility] MCH 28.7 26.0 - 34.0 pg 05/11/2024 7:24 AM CDT [facility] MCHC 30.7(L) 32.0 - 36.0 g/dL 05/11/2024 7:24 AM T [facility] RDW 15.6(H) 11.5 - 15.5 % 05/11/2024 7:24 AM CDT [facility] PLATELET COUNT 05/11/2024 7:24 AM CDT [facility] Comment: Platelet clumped, unable to determine This is a corrected result. Previously reported as 108 thou/cu mm with reference range 140-440 thou/cu mm on 05/11/2024 at 0723 CDT MPV 05/11/2024 7:24 AM CDT [facility] Comment: Unable to determine This is a corrected result. Previously reported as 11.6 fL with reference range 6.5-11.0 fL on 05/11/2024 at 0723 CDT NRBC 0.0 % 05/11/2024 7:24 AM CDT [facility] ABS NRBC 0.0 thou /cu mm 05/11/2024 7:24 AM CDT [facility] LABORATORY Blood BLOOD SPECIMEN / Unknown Venipuncture / Unknown 05/11/2024 6:13 AM CDT 05/11/2024 6:22 AM CDT Marquis Santana MD HEMATOLOGY Performing Organization Address City/[facility]/ZIP Co de Phone Number [facility] [address] [place] [phone], [place] * EXTRA TUBE GOLD/SST (05/11/2024 6:10 AM CDT) Blood BLOOD SPECIMEN / Unknown Extra Tube / Unknown 05/11/2024 6:10 AM CDT 05/11/2024 6:23 AM CDT Marquis Santana MD LABORATORY [facility] [address] [place] [address], [place] * SCAN-CARDIAC STRIP (05/11/2024 12:00 AM [...] DEVICE DATA Medtronic Evera MRI XT DR [id number] SN: [id number] Implant Date 08/03/2019 LEAD DATA Atrial Lead: Medtronic 5076 - 52 MRI SN: [id number] Implant Date 08/03/2019 RV Lead: Medtronic [id number] - 62 MRI SN: [id number] Implant Date 08/03/2019 Tachy therapy hx: none 01/2023 Presence of a glassed feedthrough creates increased risk of unexpected HV arching within the header during therapy delivery. All HV pathways have been programmed B>AX. Hx: ??DCCV 04/30/24 DCCV ??04/19/24 Location of evaluation: [facility] P/R 18 post Cardioversion Reason for evaluation: [...] past two weeks from his device: per edi programmer reason for alert was that it was unable to send a transmission. ??Patient and family confirm that bedside monitor is plugged in. ??Provided family with [employer] Support number in case this happens again. Follow up: as previously scheduled [facility] remote on 06/25/24 prior to seeing Rosemarie Senior NP in [place] Routine follow up: Every 3 - 4 months via [facility] remote with annual [place] or clinic with Dr. Santana each February. Susana Joyner, RN Nurse Clinician II [facility] Pacemaker/ICD Clinic [phone] Marquis Santana MD CARDIAC SERVICES ORD * EP CARDIOVERSION (04/30/2024 12:06 PM CDT) Anatomical Region Laterality Modality X-Ray Angiograph y Narrative 04/30/2024 12:06 PM CDT Nora Lara NP ? 04/30/2024 12:21 PM [facility] Cardiac Electrophysiology Procedure Note DOS: 04/30/2024 Brief [...] ??One 200 joules synchronized shock delivered with jew of sinus rhythm. ?? Complications: ??No acute complications. ?? Plan: ?? Rian Centeno is now recovering from sedation and would anticipate discharge home later today. Dr. Juarez was readily available to provide assistance and direction throughout the time services were performed Nora Lara NP [facility] Cardiac Electrophysiology Marquis Santana MD CV IMAGING [...] This radiology exam was performed at the [facility] Orthopedic Radiology Department in [place] and interpreted by Riaz Peterson MD. HISTORY: [...] - 4.20 uIU/mL 04/22/2024 2:25 PM CDT [facility] Blood BLOOD SPECIMEN / Unknown Venipuncture / Unknown 04/22/2024 1:29 PM CDT 04/22/2024 1:29 PM CDT Narrative [facility] - 04/22/2024 2:25 PM CDT In Adults, TSH values between 5.00 and 10.00 uIU/ml do not necessarily indicate the presence of Hypothyroidism. Correlation with clinical findings such as presence of goiter and/or Thyroperoxidase (TPO) Antibody may be helpful. For more information please refer to YU 2004; 291: 228-238. Marquis Santana MD CHEMISTRY Performing Organization Address City/State/[facility] Co de Phone Number [facility] [address] [place] [address] * SCAN-CARDIAC STRIP (04/19/2024 12:00 AM CDT) Narrative 04/19/2024 12:00 AM CDT Ordered by an unspecified provider. Other Clinical Staff OTHER * SCAN-ELECTROMYOGRAM EMG (04/15/2024 12:00 AM CDT) Scanner OTHER * EP CARDIOVERSION (04/08/2024 2:44 PM CDT) Anatomical Region Laterality Modality X-Ray Angiograph y Narrative 04/08/2024 2:44 PM CDT Seamus Cole MD ? 04/08/2024 ??4:11 PM [facility] Cardiac Electrophysiology Procedure Note DOS: 04/08/2024 Brief [...] services were performed David Ugarte NP [facility] Cardiac Electrophysiology Seamus Cole MD Cardiac Arrhythmia Section [facility] Marquis Santana MD CV IMAGING * SCAN-CARDIAC [...] @ Mar ??2 2023 ??3:21PM (Electronically Signed) [email or web address] Narrative 03/30/2024 3:21 PM CDT For Patients: [...] @ Mar 30 2024 3:21PM (Electronically Signed) [email or web address] Riaz Peterson MD GENERAL IMAGING * SCAN-CARDIAC STRIP (03/19/2024 9:21 AM CDT) Scanner OTHER * (ABNORMAL) HEPATIC FUNCTION PANEL (03/19/2024 4:50 AM CDT) Only the most recent of3 resultswithin the time period is included. ALBUMIN 3.3(L) 4.0 - 4.9 g/dL 03/19/2024 5:44 AM CDT [facility] TRAL LABORATORY PROTEIN,TOTAL 6.1 6.0 - 8.0 g/dL 03/19/2024 5:44 AM CDT [facility] TRAL LABORATORY BILIRUBIN,TOTAL 0.5 0.0 - 1.2 mg/dL 03/19/2024 5:44 AM CDT [facility] TRAL LABORATORY BILIRUBIN,DIRECT 0.2 0.0 - 0.3 mg/dL 03/19/2024 5:44 AM CDT [facility] TRAL LABORATORY BILIRUBIN,INDIRE CT 0.3 0.2 - 0.8 mg/dL 03/19/2024 5:44 AM CDT [facility] TRAL LABORATORY ALK PHOSPHATASE 122 40 - 129 IU/L 03/19/2024 5:44 AM CDT [facility] TR[facility] LABORATORY ALT (SGPT) 37 10 - 50 IU/L 03/19/2024 5:44 AM CDT [facility] TR[facility] LABORATORY AST (SGOT) 56(H) 10 - 50 IU/L 03/19/2024 5:44 AM CDT [facility] TRAL LABORATORY Blood BLOOD SPECIMEN / Unknown Venipuncture / Unknown 03/19/2024 4:50 AM CDT 03/19/2024 5:14 AM CDT Varghese Mckenna MD CHEMISTRY [facility] [address] [place] [address], [place] * SCAN-CARDIAC STRIP (03/19/2024 12:01 AM CDT) Scanner OTHER * (ABNORMAL) GLUCOSE METER (03/18/2024 8:36 PM CDT) Only the most recent of8 resultswithin the time period is included. GLUCOSE METER 172(H) 65 - 100 mg/dL 03/18/2024 11:27 PM CDT [facility] Blood BLOOD SPECIMEN / Unknown 03/18/2024 8:36 PM CDT 03/18/2024 11:27 PM CDT Lee Carrillo MD CHEMISTRY Performing Organization Address [facility] Co de Phone Number [facility] [address] [place] [address], [place] * US ARTERIAL LOWER EXTREMITY LEFT [...] - 4.20 uIU/mL 03/17/2024 10:19 PM CDT [facility] Blood BLOOD SPECIMEN / Unknown Venipuncture / Unknown 03/17/2024 4:18 AM CDT 03/17/2024 4:35 AM CDT Narrative [facility] - 03/17/2024 10:19 PM CDT In Adults, TSH values between 5.00 and 10.00 uIU/ml do not necessarily indicate the presence of Hypothyroidism. Correlation with clinical findings such as presence of goiter and/or Thyroperoxidase (TPO) Antibody may be helpful. For more information please refer to YU 2004; 291: 228-238. Shane Ramires DO CHEMISTRY Performing Organization Address City/[facility]/ZIP Co de Phone Number [facility] [address] [place] [address], * T4,FREE (03/17/2024 4:18 AM CDT) T4,FREE 1.37 0.93 - 1.70 ng/dL 03/17/2024 10:51 PM CDT [facility] Blood BLOOD SPECIMEN / Unknown Venipuncture / Unknown 03/17/2024 4:18 AM CDT 03/17/2024 4:35 AM CDT Shane Ramires DO CHEMISTRY Performing Organization Address City/[facility]/ZIP Co de Phone Number [facility] [address] [place] [address], * CK TOTAL (03/17/2024 4:18 AM CDT) CK,TOTAL 133 39 - 308 IU/L 03/17/2024 9:43 PM CDT [facility] Blood BLOOD SPECIMEN / Unknown Venipuncture / Unknown 03/17/2024 4:18 AM CDT 03/17/2024 4:35 AM CDT Shane Ramires DO CHEMISTRY [facility] [address] [place] [address], * [facility] IONIZED H[facility]PITAL DRAW ONLY (03/17/2024 4:18 AM CDT) CALCIUM,IONIZE D 1.18 1.15 - 1.27 mmol/L 03/17/2024 4:41 AM CDT [facility] Blood BLOOD SPECIMEN / Unknown Venipuncture / Unknown 03/17/2024 4:18 AM CDT 03/17/2024 4:35 AM CDT Estrella Manuel MD CHEMISTRY Performing Organization Address City/[facility]/ZIP Co de Phone Number [facility] [address] [place] [phone], [place] * CT CHEST ABDOMEN PELVIS W (03/15/2024 [...] (ABNORMAL) LIPID PANEL (01/07/2018 4:35 PM CDT) [facility] CHOLESTEROL,TOTAL 174 100 - 199 mg/dL 01/07/2018 6:28 PM CDT [facility] TRIGLYCERIDES 194(H) <150 mg/dL 01/07/2018 6:28 PM CDT [facility] HDL CHOLESTEROL 64 >40 mg/dL 8 6:28 PM CDT [facility] NON-HDL CHOLESTEROL 110 <145 mg/dl 01/07/2018 6:28 PM CDT [facility] CHOL/HDL RATIO 2.72 <4.50 01/07/2018 6:28 PM CDT [facility] LDL CHOLESTEROL 71 <=130 mg/dL 01/07/2018 6:28 PM CDT [facility] PROVIDER ORDERED STATUS RANDOM 01/07/2018 6:28 PM CDT [facility] Blood BLOOD SPECIMEN / Unknown Venipuncture / Unknown 01/07/2018 4:35 PM CDT 01/07/2018 4:39 PM CDT Aba Boo MD CHEMISTRY [facility] [address] [place] [address] from Last 3 Months or Most Recently [...] Comments Code Status Discussion: Other Care Teams Cat Swamper Relationship Specialty Start Date End Date Aba Boo MD [address] [place] [address] PCP - General Family Practice 11/18/19 Destin Johnston MD [address] [id number] Cardiology - CHF Cardiovascular Disease 04/14/20 Nurses, Advanced Heart Failure [address] [place] [address] Advanced Heart Failure/Transplant Card 04/14/20
--- OUTSIDE RECORDS SUMMARY | 2024-06-17 11:33 | XMS_ITS | Clinical Summary ---
Author Organization [facility] Address [address] [address] Phone Care Team Providers Care Continuous Improvement Intern Name Role Phone Aba Boo MD Primary Care Provider Allergies No known active allergies Encounters Date Type Department Care Team Description 04/02/2024 3:26 PM CDT - 04/02/2024 4:45 PM CDT Emergency [facility] Emergency Department [address] [place] [address] Lee Frye, Pacemaker complications, initial encounter (Primary Dx) Discharge Disposition: Home and/or Self Care 04/02/2024 7:00 AM CDT Cardiac Device Remote [facility] [address] [place] [address] Ancillary, [facility] Pacer Remote Monitor Sinoatrial node dysfunction (HCC) [...] age to complete this topic Care Teams Continuous Improvement Intern Relationship Specialty Start Date End Date Aba Boo MD [facility] & [address] [address] PCP - General Family Medicine 04/02/24
--- OUTSIDE RECORDS SUMMARY | 2024-06-17 11:33 | XMS_ITS | Encounter Summary ---
Author Organization [facility] Address [address] [address] Phone Care Team Providers Care Slurry Plant Operator Name Role Phone Aba Boo MD Primary Care Provider [phone] Encounter Details Date Type Department Care Team [...] on filedocumented in this encounter Care Teams Slurry Plant Operator Relationship Specialty Start Date End Date Aba Boo MD [facility] & [address] [address] PCP - General Family Medicine 04/02/24 documented as of this encounter
--- OUTSIDE RECORDS SUMMARY | 2024-06-17 11:33 | XMS_ITS | Encounter Summary ---
Author Organization [facility] Address [address] [address] Phone Care Team Providers Care Sales Contractor Name Role Phone Aba Boo MD Primary Care Provider Reason for Visit * Reason Comments Pacemaker Problem Encounter Details Date Type Department Care Team (Late st Contact Info) Description 04/02/2024 3:26 PM CDT - 04/02/2024 4:45 PM CDT Emergency [facility] Emergency Department [address] [place] [address] [phone] Lee Frye, DO [address] [place] [phone] Pacemaker complications, initial encounter (Primary Dx) Discharge [...] certainly considered. Pacemaker was interrogated. Per pacemaker housing management representative the pacemaker is working appropriately. The [...] Disposition ED Disposition Discharge Condition Stable Comment [facility] thanks you for allowing us to assist you with your healthcare needs. This document contains patient education materials and information regarding your injury/illness. *If you need copies of your x-rays for a f ollow up appointment please call [phone] to arrangefor curing pickling packer. If you had an IV in place [...] Primary documented in this encounter Care Teams Sales Contractor Relationship Specialty Start Date End Date Aba Boo MD [facility] [address] [place] [address] PCP - General Family Medicine 04/02/24 documented as of this encounter
--- OUTSIDE RECORDS SUMMARY | 2024-06-17 11:33 | XMS_ITS | Encounter Summary ---
Author Organization [facility] Address [address] [address] Phone Care Team Providers Care E Business Consultant Name Role Phone Aba Boo MD Primary Care Provider [phone] Reason for Visit * Reason Comments Cardiac Device Check Encounter Details Date Type Department Care Team (Latest Contact Info) Description 04/02/2024 7:00 AM CDT Cardiac Device Remote [facility] [address] [place] [address] Ancillary, [facility] Pacer Remote Monitor Sinoatrial node [...] the original note were not included. 04/02/24 9901 Remote Impression and Plan Place of Service [place];[facility];In person Remote Monitoring;E.R.;ICD Final Impression Normal Remote Monitor with Events RVP > 40% NO Events/Comments In person care link from Sold. Pt has been 100% AT/AF since 03/16/24 with ventricular rates 80-120s bpm for majority of time. Presenting egm supporting AT/AF VS 80-120 bpm. No ventricular events logged. Minimally FREIGHT RATE SPECIALIST: 4.3%. Updated Dr. Frye via secure chat. Pt's device is beeping due to unsuccessful [employer] Alert transmission. Pt needs to follow up with [employer] technical support and device clinic they follow with. Follow Up Plan follow-up as scheduled Plan of Care Full report under Media/CV tab Anticoagulation (No updated med list) Battery 2.8 yrs Atrial Fib [place] % 100 RVP % 4.3 Heart Rate [...] call notification and can be viewed in [employer]. Presenting rhythm: Associated attestation - Sanjay Alvarez [...] situ documented in this encounter Care Teams E Business Consultant Relationship Specialty Start Date End Date Aba Boo MD [facility] & [address] [address] PCP - General Family Medicine 04/02/24 documented as of this encounter
--- OUTSIDE RECORDS SUMMARY | 2024-06-17 11:34 | XMS_ITS | Encounter Summary ---
Author Organization [facility] Address [address], [place] [address] Care Team Providers Care Nurses Aide Name Role Phone Clinician, Not Found MD Primary Care Provider Un available Reason for Visit * Reason Comments Questions Encounter Details Date Type Department Care Team (Late st Contact Info) Description 12/30/2023 Telephone [facility] [address] [place], [place] [phone] Zakia Carrillo, DIRECTOR SOFTWARE DEVELOPMENT, MANAGER ARMY [address] [place] [address] Questions Social History Tobacco Use Types Packs/Day [...] [place] * Erendira Prince - 12/30/2023 3:02 PM [...] can we send you a message in [employer]? No [Project Economist/Sales Appointment Coordinator: Relay to patient; We make every effort to get back to you sameday, however it may take 1-2 business days depending on the nature of the communication.] documented in this encounter Plan of Treatment Not on file documented as of this encounter Visit Diagnoses Not on filedocumented in this encounter Care Teams Nurses Aide Relationship Specialty Start Date End Date Clinician, Not Found, [place] [address] PCP - General 06/23/20 documented as of this encounter
--- OUTSIDE RECORDS SUMMARY | 2024-06-17 11:34 | XMS_ITS | Clinical Summary ---
Author Organization [facility] Address [address] [place] [address] Care Team Providers Care Form Maker Name Role Phone Clinician, Not Found MD Primary Care Provider Un available Source Comments You are receiving this document as you are listed as the primary care provider,follow-up provider, or the patient has been referred to you for consultation.This is in compliance with the Medicare and[facility] EHR Incentive Program,which states Providers who transition their patient to another setting of careor provider of care or refers their patient to another provider of care shouldprovide summary care record for each transition of care or referral. Estately Allergies No known active allergies Medications Medication [...] 020 Overview (06/15/2020): By Dr. Murrieta at [facility]. Ascending aorta dilation 06/15/2020 Overview (06/15/2020): [...] this topic Medical Devices Implanted Type Area Buffer Operator Device Identifier Shelf Expiration Date Model / Serial / Lot Mohan Bone Biomet R 1x40 - [id number] Implanted:Qty: 2 on 06/15/2020 by Sanjay Murrieta MD at [facility] DEVICE Right: [employer] 07/29/2024 [id number] / / [id number] Patella All Poly Ply 41mm - [id number] Implanted:Qty: 1 on 06/15/2020 by Sanjay Murrieta MD at [facility] DEVICE Right: [employer] 06/28/2026 [id number] / / [id number] Comp Str Hy[address] 14x+30 - [id number] Implanted:Qty: 1 on 06/15/2020 by Sanjay Murrieta MD at [facility] DEVICE Right: [employer] 11/26/2029 [id number] / / [id number] Stem Tib 5deg Szh Rt - [id number] Implanted:Qty: 1 on 06/15/2020 by Sanjay Murrieta MD at [facility] DEVICE Right: [employer] 01/26/2029 [id number] / / [id number] Comp Fem Ps Ccr Ps Std Sz12 Rt - [id number] Implanted:Qty: 1 on 06/15/2020 by Sanjay Murrieta MD at [facility] DEVICE Right: [employer] 06/28/2029 [id number] / / [id number] Asf Ps Ve 10mm 1012 Gh Rt - [id number] Implanted:Qty: 1 on 06/15/2020 by Sanjay Murrieta MD at [facility] DEVICE Right: [employer] 04/28/2021 [id number] / / [id number] Advance Directives * Full Code (Latest Code Status on File) Date Activated Date Inactivated Comments 06/15/2020 2:08 PM 06/17/2020 2:45 PM Care Teams Form Maker Relationship Specialty Start Date End Date Clinician, Not Found, [place] [address] PCP - General 06/23/20
== END 2024-06-17 11:30 | disposition home or self-care (01) ==
PROVIDERS: PCP Family Medicine; Visit Provider Family Medicine
DX: E03.9 Hypothyroidism, unspecified (principal); I10 Essential (primary) hypertension; I50.9 Heart failure, unspecified
CPT/HCPCS: 80048; 80061; 83880; 84443; 85025

== ENCOUNTER 2024-06-23 13:01 | Outpatient (CLI) | payer MEDICARE, BC, SELFPAY ==
--- OUTSIDE RECORDS SUMMARY | 2024-06-23 13:02 | XMS_ITS | Clinical Summary ---
Author Organization [facility] Address [address] [address] Phone Care Team Providers Care Bridal Gown Fitter Name Role Phone Aba Boo MD Primary Care Provider [phone] Allergies No known active allergies Encounters Date Type Department Care Team Description 04/02/2024 3:26 PM CDT - 04/02/2024 4:45 PM CDT Emergency Emergency Department [address] [place] [address] Lee Frye, Pacemaker complications, initial encounter (Primary Dx) Discharge Disposition: Home and/or Self Care 04/02/2024 7:00 AM CDT Cardiac Device Remote [facility] [address] [place] [address] Ancillary, [facility] Pacer [...] age to complete this topic Care Teams Bridal Gown Fitter Relationship Specialty Start Date End Date Aba Boo MD [facility] & [address] [address] PCP - General Family Medicine 04/02/24
--- OUTSIDE RECORDS SUMMARY | 2024-06-23 13:02 | XMS_ITS | Encounter Summary ---
Author Organization [facility] Address [address] [address] Phone Care Team Providers Care Agility Instructor Name Role Phone Aba Boo MD Primary Care Provider [phone] Reason for Visit * Reason Comments Cardiac Device Check Encounter Details Date Type Department Care Team (Latest Contact Info) Description 04/02/2024 7:00 AM CDT Cardiac Device Remote [facility] [address] [place] [address] Ancillary, [facility] Pacer Remote Monitor Sinoatrial node [...] the original note were not included. 04/02/24 2161 Remote Impression and Plan Place of Service [place];[employer] [facility];In person Remote Monitoring;E.R.;ICD Final Impression Normal Remote Monitor with Events RVP > 40% NO Events/Comments In person care link from [employer]. Pt has been 100% AT/AF since 03/16/24 with ventricular rates 80-120s bpm for majority of time. Presenting egm supporting AT/AF VS 80-120 bpm. No ventricular events logged. Minimally VALET PARKER: 4.3%. Updated Dr. Frye via secure chat. Pt's device is beeping due to unsuccessful [employer] Alert transmission. Pt needs to follow up with [employer] technical support and device clinic they follow with. Follow Up Plan follow-up as scheduled Plan of Care Full report under Media/CV tab Anticoagulation (No updated med list) Battery 2.8 yrs Atrial Fib Addison % 100 RVP % 4.3 Heart Rate [...] call notification and can be viewed in [employer]. Presenting rhythm: Associated attestation - Sanjay Alvarez [...] situ documented in this encounter Care Teams Agility Instructor Relationship Specialty Start Date End Date Aba Boo MD [facility] & [address] [address] PCP - General Family Medicine 04/02/24 documented as of this encounter
--- OUTSIDE RECORDS SUMMARY | 2024-06-23 13:02 | XMS_ITS | Encounter Summary ---
Author Organization [facility] Address [address] [address] Phone Care Team Providers Care Skid Road Worker Name Role Phone Aba Boo MD Primary Care Provider Reason for Visit * Reason Comments Pacemaker Problem Encounter Details Date Type Department Care Team (Late st Contact Info) Description 04/02/2024 3:26 PM CDT - 04/02/2024 4:45 PM CDT Emergency [facility] Emergency Department [address] [place] [phone] Lee Frye, DO [address] [place] [address] [phone] Pacemaker complications, initial encounter (Primary Dx) Discharge [...] certainly considered. Pacemaker was interrogated. Per pacemaker artist representative the pacemaker is working appropriately. The [...] ED Disposition Discharge Condition Stable Comment [facility] thanks you for allowing us to assist you with your healthcare needs. This document contains patient education materials and information regarding your injury/illness. *If you need copies of your x-rays for a f ollow up appointment please call [phone] to arrangefor leaf size picker. If you had an IV in [...] Primary documented in this encounter Care Teams Skid Road Worker Relationship Specialty Start Date End Date Aba Boo MD [facility] [address] [place] [address] PCP - General Family Medicine 04/02/24 documented as of this encounter
--- OUTSIDE RECORDS SUMMARY | 2024-06-23 13:02 | XMS_ITS | Encounter Summary ---
Author Organization [facility] Address [address] [address] Phone Care Team Providers Care Pit Inspector Name Role Phone Aba Boo MD Primary Care Provider [phone] Encounter Details Date Type Department Care Team [...] on filedocumented in this encounter Care Teams Pit Inspector Relationship Specialty Start Date End Date Aba Boo MD [facility] & [address] [address] PCP - General Family Medicine 04/02/24 documented as of this encounter
--- OUTSIDE RECORDS SUMMARY | 2024-06-23 13:03 | XMS_ITS | Clinical Summary ---
Author Organization [facility] Address [address] [address] Care Team Providers Care Social Security Specialist Name Role Phone Clinician, Not Found MD Primary Care Provider Un available Source Comments You are receiving this document as you are listed as the primary care provider,follow-up provider, or the patient has been referred to you for consultation.This is in compliance with the Medicare and[facility] EHR Incentive Program,which states Providers who transition their patient to another setting of careor provider of care or refers their patient to another provider of care shouldprovide summary care record for each transition of care or referral. [employer] Allergies No known active allergies Medications Medication [...] 020 Overview (06/15/2020): By Dr. Murrieta at [facility]. Ascending aorta dilation 06/15/2020 Overview (06/15/2020): [...] this topic Medical Devices Implanted Type Area Badger Distiller Operator Device Identifier Shelf Expiration Date Model / Serial / Lot Mohan Bone [employer]omet R 1x40 - [id number] Implanted:Qty: 2 on 06/15/2020 by Sanjay Murrieta MD at [facility] DEVICE Right: [employer] 07/29/2024 [id number] / / [id number] Patella All Poly Ply 41mm - [id number] Implanted:Qty: 1 on 06/15/2020 by Sanjay Murrieta MD at [facility] DEVICE Right: [employer] 06/28/2026 [id number] / / [id number] Comp Str [address] 14x+30 - [id number] Implanted:Qty: 1 on 06/15/2020 by Sanjay Murrieta MD at [facility] DEVICE Right: [employer] 11/26/2029 [id number] / / [id number] Stem Tib 5deg Szh Rt - [id number] Implanted:Qty: 1 on 06/15/2020 by Sanjay Murrieta MD at [facility] DEVICE Right: [employer] 01/26/2029 [id number] / / [id number] Comp Fem Ps Ccr Ps Std Sz12 Rt - [id number] Implanted:Qty: 1 on 06/15/2020 by Sanjay Murrieta MD at [facility] DEVICE Right: [employer] 06/28/2029 [id number] / / [id number] Asf Ps Ve 10mm 1012 Gh Rt - [id number] Implanted:Qty: 1 on 06/15/2020 by Sanjay Murrieta MD at [facility] DEVICE Right: [employer] 04/28/2021 [id number] / / [id number] Advance Directives * Full Code (Latest Code Status on File) Date Activated Date Inactivated Comments 06/15/2020 2:08 PM 06/17/2020 2:45 PM Care Teams Social Security Specialist Relationship Specialty Start Date End Date Clinician, Not Found, [place] [address] PCP - General 06/23/20
--- OUTSIDE RECORDS SUMMARY | 2024-06-23 13:03 | XMS_ITS | Clinical Summary ---
Author Organization [facility] Address [place], [place] [address] Care Team Providers Care Sod Cutter Name Role Phone Aba Boo MD Primary Care Provider + Destin Johnston MD Unavailable [phone] Nurses, Advanced Heart Failure Unavailable + Allergies [...] type, unspecified whether angina present, unspecified whether little traverse or transplanted heart Take 1 Tablet (10 [...] times daily. 90 Tablet 3 06/10/2024 Active tirzepatide, weight loss, (ZEPBOUND) 7.5 mg/0.5 mL pen Inject 7.5 mg subcutaneous once weekly. 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 Ashton. Hypothyroidism 02/17/2024 Encounters Date Type Department Care Team Description [address] [facility] [address] [facility] [address] [place] [phone] Destin Johnston MD 06/15/2024 Telephone [facility] [address] [facility] [address] [place] [address] Sanjay Lazaro MD Questions 06/10/2024 8:00 AM CDT Office Visit [facility] [address] [place] [address] Destin Johnston MD Follow Up (F/U PER [...] should be on it again.) 06/10/2024 Telephone [facility] [place] [address] [facility] [address] [place] [phone] Riaz Peterson MD Questions 06/09/2024 11:30 AM CDT Orders Only [facility] [address] [facility] [place] [place] [phone] Lab, Ale Lab 06/09/2024 Travel 06/08/2024 Orders Only [facility] [place] [address] [place] [address] Sanjay Lazaro MD <No scans attached> 06/08/2024 Telephone [facility] [place] [address] [place] [phone] Jono Peters MD Appointment 06/02/2024 9:45 AM CDT Office Visit [facility] [address] [place] [address] Sanjay Lazaro MD Hand Pain/problem (Right wrist numbness/tingling) 06/02/2024 Orders Only [facility] [place] [address] [place] [address] Sanjay Lazaro MD <No scans attached> 06/02/2024 Travel 05/27/2024 9:04 AM CDT Anesthesia Event [facility] [address] [place] [address] Erendira Velez MD Riley, Benjamin William, CRNA 05/27/2024 7:15 AM CDT - 05/27/2024 10:24 AM CDT Hospital Encounter [facility] [address] [place] [address] Seamus Cole MD Atrial fibrillation, persistent (HC) Discharge Disposition: Home Self Care 05/27/2024 Travel 05/24/2024 8:30 AM CDT Office Visit [facility] [address] [facility] [address] [place] [address] Iva Johnston CNS Follow Up (CHF FOLLOWUP /POST ABLATION DONE ON 05/11... Post modified diuretic with CMP post ablation/LABS PRIOR IN [place]/I42.9 (ICD-10-CM) - Primary cardiomyopathy (HC)/I50.23 (ICD-10-CM) - Acute on chronic HFrEF (heart failure with reduced ejection fraction) (HC) /PT states feeling ok./Went into afib a couple days later going back on ) 05/24/2024 Telephone [facility] [place] [address] [facility] [address] [place] [address] Riaz Peterson MD Error-please disregard 05/24/2024 Travel 05/20/2024 12:00 PM CDT Orders Only [facility] [address] [place] [address] Lab, Ael Lab 05/20/2024 Telephone [facility] [address] [place] [address] Seamus Cole MD Atrial Fibrillation 05/20/2024 Travel 05/19/2024 Telephone [facility] [address] [place] [address] Destin Johnston MD Medication Management 05/19/2024 Telephone [facility] [address] [place] [address] Marquis Santana MD Medication Management 05/19/2024 Telephone [facility] [address] [place] [address] Susana Joyner I, KELSEA Device Check 05/19/2024 Telephone [facility] [address] [facility] [address] [place] [address] Marquis Santana MD Device Check 05/19/2024 Telephone [facility] [address] [place] [address] Erendira Sotomayor, LIDYA Weight 05/14/2024 9:37 AM CDT Anesthesia Event [facility] [address] [place] [address] Aba Valerio MD 05/14/2024 7:10 AM CDT - 05/14/2024 11:40 AM CDT Hospital Encounter [facility] [address] [place] [address] Seamus Cole MD Atrial fibrillation, persistent (HC) Discharge Disposition: Home Self Care 05/14/2024 Travel 05/13/2024 9:20 AM CDT Orders Only [facility] [address] [facility] 150 [place] [address] Lab 05/13/2024 Telephone [facility] [address] [phone] Martha Warner RN 05/13/2024 Telephone [facility] [address] [phone] Marquis Santana MD Results (LFT and TSH results on Amiodarone) 05/12/2024 Travel 05/11/2024 7:46 AM CDT Anesthesia Event [facility] [address] [place] [address] Alan Yao DO 05/11/2024 5:41 AM CDT - 05/11/2024 5:50 PM CDT Hospital Encounter [facility] [address] [address] Marquis Santana MD Kroll, Sharon Marie, CRNA Primary cardiomyopathy (HC) (Primary Dx); Acute on chronic HFrEF (heart failure with reduced ejection fraction) (HC) Discharge Disposition: Home Self Care 05/11/2024 Travel 05/04/2024 Telephone [facility] [address] [phone] Marquis Santana MD Medication Management 05/04/[address] [facility] [address] [address] Guadalupe Rosado, RN Appointment 05/03/2024 Telephone [facility] [address] [phone] Marquis Santana MD Concerns (AFIB) 04/30/2024 12:03 PM CDT Anesthesia Event [facility] [address] [place] [address] Aba Valerio MD Wilson, Timothy Eric, TWISTING OPERATOR 04/30/2024 10:08 AM CDT - 04/30/2024 3:03 PM CDT Hospital Encounter [facility] [address] [place] [address] Marquis Santana MD Discharge Disposition: Home Self Care 04/30/2024 Travel 04/27/2024 10:15 AM CDT Ancillary Procedure [address] [place] [address] 04/27/2024 9:45 AM CDT Office Visit [address] [place] [address] Riaz Peterson MD Recheck (EP, non-displaced left femoral neck fracture DOI:02/11/2024, x-rays) 04/27/2024 Travel 04/25/[address] [place] [address] Dennis Barahona RN 04/22/2024 1:20 PM CDT Orders Only [address] [phone] Lab, [facility] 04/22/2024 Travel 04/20/2024 Telephone [facility] [address] [address] [place] [address] Marquis Santana MD Atrial Fibrillation 04/19/2024 9:05 AM CDT Anesthesia Event [facility] [address] [place] [address] Marco Aguiar MD Wilson, Timothy Eric, TWISTING OPERATOR 04/19/2024 7:18 AM CDT - 04/19/2024 10:53 AM CDT Hospital Encounter [facility] [address] [place] [address] David Ugarte NP Gebre-Amlak, Kassatihun Debebe, MD Deviley, Janelle Esposito CRNA Atrial fibrillation, unspecified type (HC) (Primary Dx) Discharge Disposition: Home Self Care 04/19/2024 Travel 04/16/2024 7:06 AM CDT - 04/16/2024 10:07 AM CDT Hospital Encounter [facility] [address] [place] [address] Marquis Santana MD Wilson, Timothy Eric, CRNA Obesity, unspecified classification, unspecified obesity type, unspecified whether serious comorbidity present (Primary Dx); Chronic systolic heart failure (HC) Discharge Disposition: Home Self Care 04/16/2024 7:05 AM CDT Anesthesia Event [facility] [address] [place] [address] Placido Chowdhury CRNA 04/16/2024 Travel 04/15/2024 Orders Only [facility] Scanner 1 scan: (1-Ord) SHAHAB 04/15/2024 Telephone [facility] [address] [address] Lianna Dominguez, KELSEA Device Check (AF alert) 04/14/2024 Telephone [facility] [address] [facility] [address] [place] [address] Destin Johnston MD 04/13/2024 4:20 PM CDT Office Visit [facility] [address] [facility] [address] [place] [address] Rosalie Senior NP Heart Problem (Paroxysmal atrial fibrillation); Primary MD (Aba Boo MD/) 04/13/2024 8:00 AM CDT Office Visit [facility] [address] [facility] [address] [place] [address] Destin Johnston MD CV Heart Failure Est (STAT - IN PERSON F/U VISIT. LABS PRIOR @ [facility] /Acute on chronic HFrEF (heart failure with reduced ejection fraction) //pt states he is in a-fib. He got converted on and went to primary yesterday to confirm he is in A-fib still.//) 04/13/2024 Travel 04/10/2024 Telephone [facility] [address] [address] Marquis Banda RN Device Check (Patient thinks he back in AF) 04/08/2024 2:40 PM CDT Anesthesia Event [facility] [address] [place] [address] Zion Leigh MD 04/08/2024 12:19 PM CDT - 04/08/2024 3:58 PM CDT Hospital Encounter [facility] [address] [place] [address] Marquis Santana MD Wilson, Timothy Eric, CRNA Kushins, Stephen Isaac, MD Persistent atrial fibrillation (HC) (Primary Dx) Discharge Disposition: Home Self Care 04/08/2024 Travel 04/07/2024 Telephone [facility] [address] [address] Marquis Santana MD Schedule Cardioversion 04/05/2024 10:30 AM CDT Office Visit [address] [phone] Kathleen Boyer PA Follow Up (follow up) 04/05/2024 Travel 04/02/2024 Telephone [facility] [address] [address] Susana Joyner RN Device Check 04/02/2024 Telephone [facility] [address] [address] Destin Johnston MD Concerns (Defib beeping ) 03/30/2024 9:55 AM CDT Ancillary Procedure [facility] [address] [phone] 03/30/2024 9:50 AM CDT Ancillary Procedure [address] [facility] [address] [place] [phone] 03/30/2024 9:30 AM CDT Office Visit [address] [place] [phone] Riaz Peterson MD Hip Pain/problem (left hip pain); Chest Injury (left side rib pain) 03/30/2024 Travel 03/29/[address] [facility] [address] [place] [phone] Riaz Peterson MD Questions from Last 3 Months Immunizations Name Administration [...] Contact Info) Description 06/25/2024 Cardiac Device Check [facility] [phone] 06/29/2024 2:20 PM CDT Office Visit [facility] [address] [address] Rosalie Senior NP [address] [place] [address] 07/07/2024 11:30 AM CDT Office Visit [facility] [address] [place] [address] Chai Espinosa DPM [address] [place] [address] 07/09/2024 10:39 AM CDT Hospital Encounter [facility] [address] [place] [address] Sanjay Lazaro MD [address] [address] 07/09/2024 10:39 AM CDT - 07/09/2024 11:[address] [facility] [address] [place] [address] Sanjay Lazaro MD [address] [place] [address] RIGHT OPEN CARPAL TUNNEL RELEASE. 07/21/2024 11:00 AM CDT Office Visit [facility] [address] [place] [address] Janeth Resendez PA [address] [place] [phone] Scheduled Procedures Name Priority Associated Diagnoses Date/Ti me RELEASE CARPAL TUNNEL Elective Carpal tunnel syndrome of right wrist 07/09/2024 10:39 AM CDT Health Maintenance Due Date Last [...] Completed 03/15/2024 Medical Devices Implanted Type Area Dry Transfer Worker Device Identifier Shelf Expiration Date Model / Serial / Lot Graft Valsalva 34mm - [id number] Implanted:Qty: 1 on 09/09/[address] [facility] [employer] [id number] / / Procedures Procedure Name Priority Date/Time [...] ribs of left side with routine healing CT CHEST ABDOMEN PELVIS W STAT 03/15/2024 2:02 PM CDT LIPID PANEL Routine 01/07/2018 4:35 PM CDT Hypertension from Last 3 Months or Most Recently Relevant to Health Maintenance Results * (ABNORMAL) PRO-BNP (06/09/2024 11:43 AM CDT) Only the most recent of4 resultswithin the time period is included. PRO-BNP 730(H) <125 pg/mL 06/09/2024 12:42 PM CDT [facility] Blood BLOOD SPECIMEN / Unknown Venipuncture / Unknown 06/09/2024 11:43 AM CDT 06/09/2024 11:45 AM CDT [facility] - 06/09/2024 12:42 PM CDT [...] acute congestive heart failure. ? Iva Johnston SPOUTER SEND OUTS [facility] [address] [place] [address] * (ABNORMAL) BASIC METABOLIC PANEL (06/09/2024 11:43 AM CDT) Only the most recent of5 resultswithin the time period is included. SODIUM 142 136 - 145 mmol/L 06/09/2024 12:42 PM [facility] POTASSIUM 3.9 3.5 - 5.1 mmol/L 06/09/2024 12:42 PM [facility] CHLORIDE 97(L) 98 - 107 mmol/L 06/09/2024 12:42 PM [facility] CO2,TOTAL 36(H) 22 - 29 mmol/L 06/09/2024 12:42 PM [facility] ANION GAP 9 5 - 18 06/09/2024 12:42 PM [facility] GLUCOSE 92 70 - 99 mg/dL 06/09/2024 12:42 PM [facility] CALCIUM 9.7 8.8 - 10.2 mg/dL 06/09/2024 12:42 PM [facility] BUN 39(H) 8 - 23 mg/dL 06/09/2024 12:42 PM [facility] CREATININE 1.31(H) 0.70 - 1.20 mg/dL 06/09/2024 12:42 PM [facility] BUN/CREAT RATIO 30(H) 10 - 20 12:42 PM [facility] eGFR 57(L) >90 mL/min/1.7 3m2 06/09/2024 12:42 PM [facility] Comment:As of 2021, eG FR is calculated by the CKD-EPI creatinine equation without race adjustment. ??eGFR can be influenced by muscle mass, exercise, and diet. ??The reported eGFR is an estimation only and is only applicable if the renal function is stable. Blood BLOOD SPECIMEN / Unknown Venipuncture / Unknown 06/09/2024 11:43 AM CDT 06/09/2024 11:45 AM CDT Iva Johnston SPOUTER CHEMISTRY [facility] [address] [place] [address] * EP CARDIOVERSION (05/27/2024 9:10 AM CDT) Anatomical Region Laterality Modality X-Ray Angiograph y Narrative 05/27/2024 9:10 AM CDT Kathi Mcmanus PA ? 05/27/2024 ??9:11 AM [facility] Cardiac Electrophysiology Procedure Note DOS: 05/27/2024 Brief [...] time services were performed. Kathi Mcmanus PA-C [facility] Cardiac Electrophysiology Services Seamus Cole MD [...] NOW QTc 514 ms BEYOND NOW P Prosper degrees BEYOND NOW R Prosper -37 degrees BEYOND NOW T Prosper 71 degrees BEYOND NOW 05/27/2024 9:09 AM CDT 05/28/2024 1:34 PM CDT Narrative BEYOND NOW - 05/28/2024 1:34 PM CDT Test Indication: POST DCCV Kathi ARMAS EKG ORD BEYOND NOW [place], [place] * POTASSIUM,ISTAT (05/27/2024 8:04 AM CDT) Only the most recent of6 resultswithin the time period is included. [facility] POTASSIUM, POCT 3.7 3.5 - 5.0 mmol/L 05/28/2024 8:30 AM CDT [facility] Blood BLOOD SPECIMEN / Unknown 05/27/2024 8:04 AM CDT 05/28/2024 8:30 AM CDT Seamus Cole MD CHEMISTRY Performing Organization Address City/[facility]/ZIP Co de Phone Number [facility] [address] [place] [address], * SCAN-CARDIAC STRIP (05/27/2024 12:00 AM CDT) Narrative 05/27/2024 12:00 AM CDT Ordered by an unspecified provider. Other Clinical Staff OTHER * ALT (SGPT) (05/20/2024 11:09 AM CDT) Only the most recent of3 resultswithin the time period is included. Pathologist [facility] ALT (SGPT) 28 10 - 50 IU/L 05/20/2024 2:49 PM CDT [facility] Blood BLOOD SPECIMEN / Unknown Venipuncture / Unknown 05/20/2024 11:09 AM CDT 05/20/2024 11:10 AM CDT Marquis Santana MD CHEMISTRY Performing Organization Address City/[facility] Co de Phone Number [facility] [address] [place] [address] * AST (SGOT) (05/20/2024 11:09 AM CDT) Only the most recent of3 resultswithin the time period is included. AST (SGOT) 42 10 - 50 IU/L 05/20/2024 2:39 PM CDT [facility] Blood BLOOD SPECIMEN / Unknown Venipuncture / Unknown 05/20/2024 11:09 AM CDT 05/20/2024 11:10 AM CDT Marquis Santana MD CHEMISTRY Performing Organization Address [facility] Co de Phone Number [facility] [address] [place] [address] * EP CARDIOVERSION (05/14/2024 9:46 AM CDT) Anatomical Region Laterality Modality X-Ray Angiograph y Narrative 05/14/2024 9:46 AM CDT Seamus Cole MD ? 05/17/2024 ??7:41 AM [facility] Cardiac Electrophysiology Procedure Note DOS: 05/14/2024 Brief History: ??Mr. Centeno is a pleasant 73 year old with history of atrial arrhythmias who now presents to [facility] NPO since midnight for direct [...] services were performed Esther Macdonald NP ?? [facility] Cardiac Electrophysiology Services Seamus Cole MD Cardiac Arrhythmia Section [facility] Seamus Cole MD CV IMAGING * SCAN-CARDIAC STRIP (05/14/2024 12:00 AM CDT) Narrative 05/14/2024 12:00 AM CDT Ordered by an unspecified provider. Other Clinical Staff OTHER * MAGNESIUM (05/13/2024 8:42 AM CDT) MAGNESIUM 1.9 1.6 - 2.4 mg/dL 05/14/2024 9:14 AM CDT [facility] Blood BLOOD SPECIMEN / Unknown Venipuncture / Unknown 05/13/2024 8:42 AM CDT 05/13/2024 8:42 AM CDT Esther Macdonald NP CHEMISTRY Performing Organization Address [facility] Co de Phone Number [facility] [address] [place] [address], * SCAN-CARDIAC STRIP (05/11/2024 1:28 PM CDT) Scanner OTHER * (ABNORMAL) ACTIVATED CLOTTING TIME COP180 ACT (05/11/2024 11:38 AM CDT) Only the most recent of6 resultswithin the time period is included. ACTIVATED CLOTTING TIME, POCT 174(H) 74 - 125 sec 05/11/2024 11:52 AM CDT [facility] Blood BLOOD SPECIMEN / Unknown 05/11/2024 11:38 AM CDT 05/11/2024 11:52 AM CDT Marquis Santana MD HEMATOLOGY Performing Organization Address City/[facility]/ZIP Co de Phone Number [facility] [address] [place] [address], * EP STUDY /ABLATION (05/11/2024 8:13 AM CDT) Anatomical Region Laterality Modality X-Ray Angiograph y, X-Ray Angiography 05/11/2024 8:13 AM CDT Narrative Transcriptions Marquis Santana MD - 05/11/2024 5:20 PM CDT [facility] Electrophysiology Procedure Report Name: RAIN CENTENO Event Date: 05/11/2024 [facility] ID #: [id number] Date: 1950 Gender: Male Age: 73 [facility] #: [id number] Procedure Performed By: MARQUIS SANTANA [facility] Referring Physician: Summary / Conclusions 1. [...] ? Same as Pre-operative diagnosis Consent & [place] Protocol [place] protocol was followed. TIME OUT conducted just [...] micropuncturetechnique, two sheaths were introduced (one 8 Qatari and one 7 Qatari)into the right femoral vein, one 9 Qatari sheath was introduced into theleft femoral vein. [...] the ACT. The patient was transported to [facility] area in stable condition for further [...] Intervals Study State Underlying Rhythm Cycle Length GA PA AH HV QRS Prosper QRSMorphology Baseline Atrial Fibrillation [phone] Post Ablation [...] See Anesthesia Note Total Flouro Time: 4.5 TALENT REP Total Flouro Dose: 7 mGy Transseptal Mean LA Pressure: 20 mmHg Staff Name Role Marquis Santana Physician Executive Mary Juarez RN Nurse Will Dumont CVT Monitor Elayne Cano CVT Scrub Mo Clancy EPClinton Mat Tester Medications Ordered and Administered Start Time Stop Time Medication Dose Units Route Ordered By Given By 08:15 0.25% Bupivicaine 10 mL Subcut MD Marquis Melton MD 08:16 1% Lidocaine Hydrochloride 10 mL Subcut MD Marquis Melton MD 08:19 0.25% Bupivicaine 5 mL Subcut MD Marquis Melton MD 08:19 1% Lidocaine Hydrochloride 5 mL Subcut MD Marquis Melton MD 08:25 Heparin [id number] Units IV MD Mary Melton RN 08:37 [...] with status of Final Marquis Santana MD Physician Executive [facility] [address] [place] [address] (p) [phone](f) Marquis Santana MD CV IMAGING * H[facility]G [...] PLATELET ESTIMATE (05/11/2024 6:13 AM CDT) Pathologist [facility] PLATELET ESTIMATE Platelets Clumped Unable to Determine(A) Adequate, No estimate 05/11/2024 7:24 AM CDT [facility] Blood BLOOD SPECIMEN / Unknown Venipuncture / Unknown 05/11/2024 6:13 AM CDT 05/11/2024 6:22 AM CDT Marquis Santana MD [facility] [address] [place] [address], * (ABNORMAL) CBC with Platelet no Diff (05/11/2024 6:13 AM CDT) Pathologist [facility] WHITE BLOOD COUNT 8.5 4.5 - 11.0 thou/cu mm 05/11/2024 7:24 AM CDT [facility] RED BLOOD COUNT 4.01(L) 4.30 - 5.90 mil/cu mm 05/11/2024 7:24 AM CDT [facility] HEMOGLOBIN 11.5(L) 13.5 - 17.5 g/dL 05/11/2024 7:24 AM CDT [facility] HEMATOCRIT 37.5 37.0 - 53.0 % 05/11/2024 7:24 AM CDT [facility] MCV 94 80 - 100 fL 05/11/2024 7:24 AM CDT [facility] MCH 28.7 26.0 - 34.0 pg 05/11/2024 7:24 AM CDT [facility] MCHC 30.7(L) 32.0 - 36.0 g/dL 05/11/2024 7:24 AM CDT [facility] RDW 15.6(H) 11.5 - 15.5 % 05/11/2024 7:24 AM T [facility] PLATELET COUNT 05/11/2024 7:24 AM T [facility] Comment: Platelet clumped, unable to determine This is a corrected result. Previously reported as 108 thou/cu mm with reference range 140-440 thou/cu mm on 05/11/2024 at 0723 CDT MPV 05/11/2024 7:24 AM T [facility] Comment: Unable to determine This is a corrected result. Previously reported as 11.6 fL with reference range 6.5-11.0 fL on 05/11/2024 at 0723 CDT NRBC 0.0 % 05/11/2024 7:24 AM CDT [facility] ABS NRBC 0.0 thou /cu mm 05/11/2024 7:24 AM [facility] Blood BLOOD SPECIMEN / Unknown Venipuncture / Unknown 05/11/2024 6:13 AM CDT 05/11/2024 6:22 AM CDT Marquis Santana MD HEMATOLOGY [facility] [address] [place] [address], * EXTRA TUBE GOLD/SST (05/11/2024 6:10 AM CDT) Blood BLOOD SPECIMEN / Unknown Extra Tube / Unknown 05/11/2024 6:10 AM CDT 05/11/2024 6:23 AM CDT Marquis Santana MD LABORATORY [facility] [facility] [address] [place] [id number], * SCAN-CARDIAC STRIP (05/11/2024 12:00 AM CDT) [...] MD DEVICE DATA Medtronic Evera MRI XT [id number] SN: [id number] Implant Date 08/03/2019 LEAD DATA Atrial Lead: Medtronic 5076 - 52 MRI SN: [id number] Implant Date 08/03/2019 RV Lead: Medtronic 6935M - 62 MRI SN: [id number] Implant Date 08/03/2019 Tachy therapy hx: none 01/2023 Presence of a glassed feedthrough creates increased risk of unexpected HV arching within the header during therapy delivery. All HV pathways have been programmed B>AX. Hx: ??DCCV 04/30/24 DCCV ??04/19/24 Location of evaluation: [facility] P/R 18 post Cardioversion Reason for [...] past two weeks from his device: per bioinformatics programmer reason for alert was that it was unable to send a transmission. ??Patient and family confirm that bedside monitor is plugged in. ??Provided family with [employer] Support number in case this happens again. Follow up: as previously scheduled [facility] on 06/25/24 prior to seeing Rosemarie Senior NP in [place] Routine follow up: Every 3 - 4 months via [facility] with annual [place] or clinic with Dr. Santana each February. Susana Joyner, RN Nurse Clinician II [facility] Pacemaker/ICD Clinic [phone] Marquis Santana MD CARDIAC SERVICES ORD * EP CARDIOVERSION (04/30/2024 12:06 PM CDT) Anatomical Region Laterality Modality X-Ray Angiograph y Narrative 04/30/2024 12:06 PM CDT Nora Lara NP ? 04/30/2024 12:21 PM [facility] Cardiac Electrophysiology Procedure Note DOS: 04/30/2024 [...] time services were performed Nora Lara NP [facility] Cardiac Electrophysiology Marquis Santana MD CV IMAGING * SCAN-CARDIAC STRIP (04/30/2024 12:00 AM CDT) Narrative 04/30/2024 12:00 AM CDT Ordered by an unspecified provider. Other Clinical Staff OTHER * XR HIP 2 OR 3 VIEWS W PELVIS LEFT (04/27/2024 10:24 AM CDT) Only the most recent of2 [...] [facility] Orthopedic Radiology Department in [place] and interpreted by Riaz Peterson MD. HISTORY: [...] - 4.20 uIU/mL 04/22/2024 2:25 PM CDT [facility] Blood BLOOD SPECIMEN / Unknown Venipuncture / Unknown 04/22/2024 1:29 PM CDT 04/22/2024 1:29 PM CDT Narrative [facility] - 04/22/2024 2:25 PM CDT In Adults, TSH values between 5.00 and 10.00 uIU/ml do not necessarily indicate the presence of Hypothyroidism. Correlation with clinical findings such as presence of goiter and/or Thyroperoxidase (TPO) Antibody may be helpful. For more information please refer to YU 2004; 291: 228-238. Marquis Santana MD CHEMISTRY [facility] [address] [place] [address] * SCAN-CARDIAC STRIP (04/19/2024 12:00 AM CDT) Narrative 04/19/2024 12:00 AM CDT Ordered by an unspecified provider. Other Clinical Staff OTHER * SCAN-ELECTROMYOGRAM EMG (04/15/2024 12:00 AM CDT) Scanner OTHER * EP CARDIOVERSION (04/08/2024 2:44 PM CDT) Anatomical Region Laterality Modality X-Ray Angiograph y Narrative 04/08/2024 2:44 PM CDT Seamus Cole MD ? 04/08/2024 ??4:11 PM [facility] Cardiac Electrophysiology Procedure Note DOS: 04/08/2024 [...] time services were performed David Ugarte NP [facility] Cardiac Electrophysiology Seamus Cole MD Cardiac Arrhythmia Section [facility] Marquis Santana MD CV IMAGING * [...] @ Mar ??2 2023 ??3:21PM (Electronically Signed) [email or web address] Narrative 03/30/2024 3:21 PM CDT For Patients: [...] @ Mar 30 2024 3:21PM (Electronically Signed) [email or web address] Riaz Peterson MD GENERAL IMAGING * CT CHEST ABDOMEN PELVIS W (03/15/2024 [...] (ABNORMAL) LIPID PANEL (01/07/2018 4:35 PM CDT) [facility] CHOLESTEROL,TOTAL 174 100 - 199 mg/dL 01/07/2018 6:28 PM CDT [facility] TRIGLYCERIDES 194(H) <150 mg/dL 01/07/2018 6:28 PM CDT [facility] HDL CHOLESTEROL 64 >40 mg/dL 8 6:28 PM CDT [facility] NON-HDL CHOLESTEROL 110 <145 mg/dl 01/07/2018 6:28 PM CDT [facility] CHOL/HDL RATIO 2.72 <4.50 01/07/2018 6:28 PM CDT [facility] LDL CHOLESTEROL 71 <=130 mg/dL 01/07/2018 6:28 PM CDT [facility] PROVIDER ORDERED STATUS RANDOM 01/07/2018 6:28 PM CDT [facility] Blood BLOOD SPECIMEN / Unknown Venipuncture / Unknown 01/07/2018 4:35 PM CDT 01/07/2018 4:39 PM CDT Aba Boo MD CHEMISTRY Performing Organization Address City/State/[facility] Co de Phone Number [address] [address] from Last 3 Months or Most Recently [...] Comments Code Status Discussion: Other Care Teams Sod Cutter Relationship Specialty Start Date End Date Aba Boo MD [address] [place] [address] PCP - General Family Practice 11/18/19 Destin Johnston MD [address] [place] [address] [id number] Cardiology - CHF Cardiovascular Disease 04/14/20 Nurses, Advanced Heart Failure [address] [place] [id number] Advanced Heart Failure/Transplant Card 04/14/20
--- OUTSIDE RECORDS SUMMARY | 2024-06-23 13:03 | XMS_ITS | Encounter Summary ---
Author Organization [facility] Address [address], [place] [address] Care Team Providers Care Community Service Officer Name Role Phone Clinician, Not Found MD Primary Care Provider Un available Reason for Visit * Reason Comments Questions Encounter Details Date Type Department Care Team (Late st Contact Info) Description 12/30/2023 Telephone [facility] [address] [place], [place] [phone] Zakia Carrillo, CONTROLLER OPERATIONS AND HR MANAGER, STUDIO MODEL [address] [place] [address] Questions Social History Tobacco Use Types Packs/Day [...] [place] * Erendira Prince - 12/30/2023 3:02 PM [...] can we send you a message in [employer]? No [Material Control Specialist/Alterations Expert: Relay to patient; We make every effort to get back to you sameday, however it may take 1-2 business days depending on the nature of the communication.] documented in this encounter Plan of Treatment Not on file documented as of this encounter Visit Diagnoses Not on filedocumented in this encounter Care Teams Community Service Officer Relationship Specialty Start Date End Date Clinician, Not Found, [place] [address] PCP - General 06/23/20 documented as of this encounter
== END 2024-06-23 13:02 | disposition home or self-care (01) ==
LOC: WOUND 13:01
PROVIDERS: PCP Family Medicine; Visit Provider Surgery
DX: I87.332 Chronic venous hypertension (idiopathic) with ulcer and inflammation of left lower extremity (principal); I89.0 Lymphedema, not elsewhere classified; L97.828 Non-pressure chronic ulcer of other part of left lower leg with other specified severity; L03.116 Cellulitis of left lower limb
CPT/HCPCS: 87070; 87186; 97597

== ENCOUNTER 2024-06-23 13:48 | Emergency (ER) | payer MEDICARE, BC, SELFPAY ==
[2024-06-23] VITALS (26 sets, daily range): BP systolic 61–100; BP diastolic 29–74; PULSE 70–74; RESP 18; TEMP 36.5; O2SAT 81–97; BMI 32.0
[2024-06-23] MEDS: 0.9 % SODIUM CHLORIDE 1000 ml 1,000 ML 6000 ML IV ×2 (14:20→14:50)
--- NOTE | 2024-06-23 14:30 | ED.GENADULT ---
HPI - General Adult General Chief complaint: Unspecified Complaint, Adult Stated complaint: BP 66/35- had flu. Laurent referred from Wound care Time Seen by Provider: 06/23/24 14:07 History of Present Illness HPI narrative: Patient is a 74 year white male who has multiple medical issues including including aortic valve repair, on anticoagulant, has had chronic traumatic induced lower extremity ulcer that he is seeing the wound care center for. He has been seeing some improvement. He reports that since Friday 2 days ago he has had vomiting and some chills. He denies any specific cough, denies chest pain, denies increasing leg pain or other concerns. He does report that his wrists and his neck and been more uncomfortable, but he has got full range of motion. He has not had true rigors but he has felt chilled that has stopped as of Friday night when his vomiting stopped. He has not been tested for COVID or other viral infection. He has not had any dysuria or frequency. He denies any other specific complaints. Surprisingly does not feel real weak or dizzy, despite his blood pressure in the wound care center being 66 systolic, up in the emergency department up to 100, then it went back to 70 again. He had not been given any IV fluids. He had held onto his diuretic while he was vomiting for last couple of days knee no distal more swelling his legs. His reports that his left leg appears a little worse than it has been and that is where he has the ulcer on the anterior aspect of his left urbina and distal leg. It is more swollen and more red the right side is more swollen as well. His cellulitis appears worse on the left. He had been given a prescription for Bactrim for home. Dr. Jackson called and sent him to the ER today. Related Data Home Medications ?Medication ?Instructions ?Recorded ?Confirmed amoxicillin 500 mg capsule 2,000 mg PO ONCE 05/13/22 06/17/24 rosuvastatin 10 mg tablet 10 mg PO QPM 10/24/23 06/17/24 rivaroxaban 20 mg tablet (Xarelto) 20 mg PO QPM 03/22/24 06/17/24 amiodarone 200 mg tablet 400 mg PO BID 05/17/24 06/17/24 gabapentin 300 mg capsule 300 mg PO PRN 05/17/24 06/17/24 torsemide 20 mg tablet 30 mg PO BID 05/17/24 06/17/24 digoxin 125 mcg (0.125 mg) tablet 125 mcg PO DAILY 06/08/24 06/17/24 empagliflozin 10 mg tablet 10 mg PO DAILY 06/08/24 06/17/24 (Jardiance) sacubitril 24 mg-valsartan 26 mg 0.5 tab PO BID 06/17/24 06/17/24 tablet (Entresto) Previous Rx's ?Medication ?Instructions ?Recorded levothyroxine 112 mcg tablet 224 mcg (2 x 112 mcg) PO QDAY #180 05/27/23 tabs ropinirole 4 mg tablet 4 mg PO TID #360 tabs 07/25/23 temazepam 30 mg capsule 30 mg PO QHS PRN sleep #30 caps 03/02/24 tramadol 50 mg tablet 50 mg PO Q6H PRN pain #30 tabs 03/20/24 tirzepatide 10 mg/0.5 mL 10 mg (0.5 mL) subcut QWEEK #2 mL 04/27/24 subcutaneous pen injector trazodone 100 mg tablet 200 mg (2 x 100 mg) PO QDAY #180 05/21/24 tabs sildenafil 100 mg tablet (Viagra) 50 - 100 mg (0.5 - 1 x 100 mg) PO 06/17/24 QDAY PRN sexual activity #10 tabs ondansetron 8 mg disintegrating 8 mg PO TID PRN nausea and 06/22/24 tablet vomiting #20 tabs sulfamethoxazole 800 1 tab PO BID #14 tabs 06/23/24 mg-trimethoprim 160 mg tablet (Bactrim DS) Allergies Allergy/AdvReac Type Severity Reaction Status Date / Time No Known Drug Allergies Allergy Verified 06/17/24 10:03 Review of Systems Status of ROS: Reports: 6 or more systems reviewed and unremarkable except as noted in History and below [facility] Medical History Bacteremia ?R78.81 - Bacteremia (ICD-10) Rib fractures ?S22.49XA - Multiple fractures of ribs, unspecified side, initial encounter for closed fracture (ICD-10) Erectile dysfunction ?N52.9 - Male erectile dysfunction, unspecified (ICD-10) Nondisplaced fracture of neck of left femur ?S72.002A - Fracture of unspecified part of neck of left femur, initial encounter for closed fracture (ICD-10) Primary hypertension ?I10 - Essential (primary) hypertension (ICD-10) Chronic low back pain ?M54.50 - Low back pain, unspecified (ICD-10) ?G89.29 - Other chronic pain (ICD-10) Kyphosis (acquired) (postural) ?M40.00 - Postural kyphosis, site unspecified (ICD-10) CHF (congestive heart failure) ?I50.9 - Heart failure, unspecified (ICD-10) Obstructive sleep apnea ?G47.33 - Obstructive sleep apnea (adult) (pediatric) (ICD-10) Restless legs syndrome ?G25.81 - Restless legs syndrome (ICD-10) Osteoarthritis of right knee ?M17.11 - Unilateral primary osteoarthritis, right knee (ICD-10) Insomnia ?G47.00 - Insomnia, unspecified (ICD-10) Herpes labialis ?B00.1 - Herpesviral vesicular dermatitis (ICD-10) Basal cell carcinoma (BCC) of chest wall (04/2021) ?C44.519 - Basal cell carcinoma of skin of other part of trunk (ICD-10) Atrial fibrillation ?I48.91 - Unspecified atrial fibrillation (ICD-10) Hypothyroidism ?E03.9 - Hypothyroidism, unspecified (ICD-10) Surgical History History of cardiac radiofrequency ablation ?Z98.890 - Other specified postprocedural states (ICD-10) Status post aortic valve replacement (09/09/11) ?Z95.2 - Presence of prosthetic heart valve (ICD-10) Presence of implantable cardioverter-defibrillator (ICD) ?Z95.810 - Presence of automatic (implantable) cardiac defibrillator (ICD-10) History of maze procedure (09/09/11) ?Z98.890 - Other specified postprocedural states (ICD-10) History of foot surgery ?Z98.890 - Other specified postprocedural states (ICD-10) Family History Son Type 1 diabetes mellitus High blood pressure Social History Narrative: - Cassandra, 4 kids, 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 [employer], non-smoker, social EtOH What is your current living situation?: I presently have a place to live Problems where you live: no known problems In the past 12 months, utilities in danger of being shut off: no In past 12 months, lack of transportation kept you from medical appts, meetings, work, or getting things needed for daily living: no In the past 12 mos, have been you worried that your food would run out before you had money to buy more?: never true In the past 12 mos, the food you bought just didn't last and you didn't have money to buy more?: never true Smoking Status: Former smoker How often does anyone, including family, friends and others, physically hurt you: never How often does anyone, including family, friends and others, insult or talk down to you: never How often does anyone, including family, friends and others, threaten you with harm: never How often does anyone, including family, friends and others, scream or curse at you: never Little interest or pleasure in doing things: not at all Feeling down, depressed, or hopeless: not at all Exam Narrative: Exam Narrative: Objective: Patient's temp is 97.7? pulse 74 and regular occasional ectopic beat next rest rate is 18 nonlabored O2 sat 92% on room air blood pressure is 100/74 but varies between 70 and 100 systolic. He does not feel lightheaded or dizzy. HEENT shows mouth clear slightly dry neck is supple with good range of motion Chest is clear Heart rhythm regular 2/6 systolic murmur occasional ectopic beat noted Abdomen benign soft nontender Pelvis stable Extremities he has got cellulitis of his left lower extremity and a healing ulcer. He has ulcers covered with iodoform gauze this was not removed, but his big dressing was removed and could see the cellulitis around the ulcer. Neurologic is nonfocal in upper lower extremities He has no obvious joint infection of his wrists with no with erythema or edness. His mental status is alert orient x3, appears in no distress. He is noncyanotic. Const: Vital Signs, click to edit/add: Vital Signs - 24 hr 06/23/24 14:06 06/23/24 14:25 06/23/24 14:27 Temperature 97.7 F Pulse Rate 70 Pulse Rate [Left P ulse Oximeter] 74 Respiratory Rate 18 Blood Pressure Blood Pressure [Ri ght Upper Arm] 100/74 Pulse Oximetry 92 86 L 89 Oxygen Delivery Me thod Oxygen Flow Rate 06/23/24 14:30 06/23/24 14:31 06/23/24 14:44 Temperature Pulse Rate 70 70 70 Pulse Rate [Left P ulse Oximeter] Respiratory Rate Blood Pressure 61/29 L 64/36 L Blood Pressure [Ri ght Upper Arm] Pulse Oximetry 88 91 90 Oxygen Delivery Me thod Oxygen Flow Rate 06/23/24 14:45 06/23/24 14:49 06/23/24 14:50 Temperature Pulse Rate 70 70 70 Pulse Rate [Left P ulse Oximeter] Respiratory Rate Blood Pressure 65/32 L Blood Pressure [Ri ght Upper Arm] Pulse Oximetry 91 88 92 Oxygen Delivery Me thod Oxygen Flow Rate 06/23/24 14:52 06/23/24 14:55 06/23/24 14:55 Temperature Pulse Rate 70 Pulse Rate [Left P ulse Oximeter] Respiratory Rate Blood Pressure 64/43 L 83/51 L Blood Pressure [Ri ght Upper Arm] Pulse Oximetry 82 L 81 L Oxygen Delivery Me thod Nasal Cannula Oxygen Flow Rate 2 06/23/24 15:01 06/23/24 15:02 06/23/24 15:15 Temperature Pulse Rate 70 70 70 Pulse Rate [Left P ulse Oximeter] Respiratory Rate Blood Pressure 85/70 L Blood Pressure [Ri ght Upper Arm] Pulse Oximetry 93 94 97 Oxygen Delivery Me thod Nasal Cannula Nasal Cannula Oxygen Flow Rate 2 2 06/23/24 15:16 06/23/24 15:21 06/23/24 15:30 Temperature Pulse Rate 73 70 70 Pulse Rate [Left P ulse Oximeter] Respiratory Rate Blood Pressure 80/54 L 80/55 L Blood Pressure [Ri ght Upper Arm] Pulse Oximetry 97 97 96 Oxygen Delivery Me thod Nasal Cannula Nasal Cannula Nasal Cannula Oxygen Flow Rate 2 2 2 06/23/24 15:31 06/23/24 15:32 06/23/24 15:42 Temperature Pulse Rate 70 70 70 Pulse Rate [Left P ulse Oximeter] Respiratory Rate Blood Pressure 88/55 L 90/54 L Blood Pressure [Ri ght Upper Arm] Pulse Oximetry 96 95 96 Oxygen Delivery Me thod Nasal Cannula Nasal Cannula Nasal Cannula Oxygen Flow Rate 2 2 1 06/23/24 15:45 06/23/24 15:51 Temperature Pulse Rate 70 71 Pulse Rate [Left P ulse Oximeter] Respiratory Rate Blood Pressure 83/58 L Blood Pressure [Ri ght Upper Arm] Pulse Oximetry 94 94 Oxygen Delivery Me thod Nasal Cannula Nasal Cannula Oxygen Flow Rate 1 1 Course Vital Signs Vital signs: Initial Vital Signs Temperature 97.7 F 06/23/24 14:06 Temperature Source Temporal Artery Scan 06/23/24 14:06 Pulse Rate 74 06/23/24 14:06 Pulse Rhythm Regular 06/23/24 14:06 Respiratory Rate 18 06/23/24 14:06 Blood Pressure 100/74 06/23/24 14:06 Blood Pressure Mean 82 06/23/24 14:06 Blood Pressure Position Sitting 06/23/24 14:06 Pulse Oximetry 92 06/23/24 14:06 Vital Signs Temperature 97.7 F 06/23/24 14:06 Pulse Rate 74 06/23/24 14:06 Respiratory Rate 18 06/23/24 14:06 Blood Pressure 100/74 06/23/24 14:06 Pulse Oximetry 92 06/23/24 14:06 Temperature 97.7 F 06/23/24 14:06 Pulse Rate 71 06/23/24 15:51 Respiratory Rate 18 06/23/24 14:06 Blood Pressure 83/58 L 06/23/24 15:51 Pulse Oximetry 94 06/23/24 15:51 Oxygen Delivery Method Nasal Cannula 06/23/24 15:51 Oxygen Flow Rate 1 06/23/24 15:51 Medications Administered Medications: Generic Name Dose Route Start Last Admin Trade Name Freq PRN Reason Stop Dose Admin Sodium Chloride 500 mls @ 500 mls/hr 06/23/24 16:11 06/23/24 16:10 0.9 % Sodium Chloride 500 Ml IV 06/23/24 17:10 500 mls/hr .Q1H ONE Administration Discontinued Medications Generic Name Dose Route Start Last Admin Trade Name Freq PRN Reason Stop Dose Admin Sodium Chloride 1,000 mls @ 6,000 mls/hr 06/23/24 14:30 06/23/24 15:20 0.9 % Sodium Chloride 1000 Ml IV 06/23/24 14:39 Infused .Q10M AYAAN Infusion Vancomycin/PEG/NADA/Lysine/Water 2 gm in 400 mls @ 200 mls/hr 06/23/24 14:25 06/23/24 14:48 Vancomycin 2 Gm/400 Ml IVPB 06/23/24 16:24 200 mls/hr ONCE ONE Administration Protocol Piperacillin Sod/Tazobactam 100 mls @ 200 mls/hr 06/23/24 14:25 06/23/24 15:43 Sod 3.375 gm/ Sodium Chloride IVPB 06/23/24 14:26 Infused ONCE ONE Infusion Sodium Chloride 1,000 mls @ 6,000 mls/hr 06/23/24 15:30 06/23/24 15:43 0.9 % Sodium Chloride 1000 Ml IV 06/23/24 15:39 Infused .Q10M AYAAN Infusion Medical Decision Making MDM Narrative Medical decision making narrative: [age] year white male with a history of cardiac disease, AICD implantation and pacemaker, aortic valve repair by his report, and on anticoagulation presen with a history of vomiting Friday and some chills Friday, that has seemed to improve, but today his blood pressures been low. He has not been taking his diuretic as he vomited any was trying not to get dehydrated. He has got some fluid excess in his lower extremities and process probably increased cellulitis. He certainly verge is on sepsis with his hypotension and I think we should cover him with Zosyn and vancomycin, he certainly could have worsening cellulitis and this could cause sepsis. I think will check a CT scan of his chest abdomen pelvis will check labs do blood cultures x2, COVID and influenza and RSV studies. Urinalysis. Venous blood gas. L IV hide duration and then a 2 L. sepsis guidelines would indicate 30 mils per kilos of IV fluid, but that would be almost 4 L of fluid, I think a couple L to start to see if his blood pressure responds to be appropriate given his edema in his lower extremities. And his cardiac history. Will see if his blood pressure improves and how he is looking, if he is remaining with better blood pressure I think we can probably admitted here if not preps transferred ICU might be appropriate. At this point he does not appear toxic and I think we have time to assess the situation and treat as above. Addendum 3:00 p.m.: The patient has had several bouts of his blood pressure dipping down on the upper 60s and low 70s. He still feels pretty and asymptomatic, has been put in Trendelenburg, running 2 L IV fluid. Bolus. Will attempt to get at least 3 L of fluid in him. I have started IV Zosyn and vancomycin. Discussed the case with his family he has been to [facility] several times over the last year and they would request that he be transferred there. I think that is quite appropriate that he needs [employer] assistant manager/ICU care. Will discuss with [facility] about transfer. Will continue with the labs and imaging if were able to get these accomplished prior to transfer. Transfer sheets completed. Patient is in agreement in families in agreement. 4:12 p.m. addendum: The patient's blood pressures been in the 80s and 90s he is feeling well. We have taken a monitoring tele edwige maintains the 90-100 range systolic. Has gotten 2+ L of fluid. I think with his edema and his heart disease I think it be reasonable to give some more fluid as he seems to be tolerating it pretty well , I do not think he needs nor epi at this point, until we get more fluid in him at this point. but he needs to be monitored, needs intensive his care. Dr. Lynn has accepted at [facility]. Lab Data Labs: Lab Results 06/23/24 06/23/24 Range/Units 14:30 14:35 WBC 8.95 (4.50-11.00) K/uL RBC 3.95 L (4.30-5.90) m/uL Hgb 11.4 L (13.5-17.5) gm/dL Hct 35.9 L (37.0-53.0) % MCV 91 (80-100) fL MCH 29 (26-34) pg MCHC 32 (32-36) gm/dL RDW Coeff of Aislinn 18.1 H (11.5-15.5) % Plt Count 186 (140-440) K/uL Neut % (Auto) 60.6 (42.0-72.0) % Lymph % (Auto) 20.8 (20-44) % [place] % (Auto) 17.0 H (0.0-11.0) % Eos % (Auto) 1.3 (0.0-7.0) % Baso % (Auto) 0.1 (0.0-3.0) % Neut # (Auto) 5.42 (1.7-7.0) K/uL Lymph # (Auto) 1.86 (0.90-2.90) K/uL [place] # (Auto) 1.50 H (0.00-0.90) K/UL Eos # (Auto) 0.12 (0.00-0.50) K/uL Baso # (Auto) 0.01 (0.00-0.30) K/uL Abs Immat Gran (auto) 0.02 (0.00-0.30) K/uL Imm/Tot Granulo (auto) 0.2 % INR 2.17 H (0.91-1.10) VBG pH 7.406 (7.32-7.43) VBG pCO2 48 (40-50) mmHG VBG pO2 78.5 H (25-47) mmHG VBG HCO3 30 H (21-28) mmol/L Sodium 128 L (135-149) mmol/L Potassium 4.5 (3.6-5.1) mmol/L Chloride 89 L (96-114) mmol/L Carbon Dioxide 29 (20-32) mmol/L Anion Gap 10 (7-15) mEq/L BUN 83 H (7-30) mg/dL Creatinine 3.1 H (0.5-1.5) mg/dL Estimated Creat Clear 27.71 Estimated GFR 20 ml/min Glucose 101 (60-115) mg/dL Calcium 8.5 (8.4-10.6) mg/dL Total Bilirubin 0.7 (0.1-1.5) mg/dL Direct Bilirubin 0.4 (0.0-0.5) mg/dL AST 28 (12-35) U/L ALT 17 (4-50) U/L Alkaline Phosphatase 95 (40-150) U/L Troponin I 0.02 (0.01-0.04) ng/mL C-Reactive Protein 19.6 H (0.5-1.0) mg/dL NT-Pro-B Natriuret Pep 2150 pg/mL Total Protein 6.6 (6.0-8.3) g/dL Albumin 3.8 (3.3-5.0) g/dL Amylase 87 (18-89) U/L SARS-CoV-2 (PCR) Negative SARS-CoV-2 (Negative) Influenza Type A (PCR) Negative PCR FLU A (Negative) Influenza Type B (PCR) Negative PCR FLU B (Negative) RSV (PCR) Negative PCR RSV (Negative) Critical Care Time Critical Care Time Total Critical Care Time in Minutes: 110 Discharge Plan Discharge Clinical Impression: Acute hypotension, Cellulitis, Sepsis Patient Disposition: Xfer [facility] Discharge Location: [facility] Condition: Unchanged Prescriptions: No Action rosuvastatin 10 mg tablet 10 mg PO QPM gabapentin 300 mg capsule 300 mg PO PRN Xarelto 20 mg tablet 20 mg PO QPM Rx Instructions: must administer with evening meal Entresto 24-26 mg tablet 0.5 tab PO BID sildenafil [Viagra] 100 mg tablet 50 - 100 mg PO QDAY PRN (Reason: sexual activity) Qty: 10 2RF Rx Instructions: administer 30 minutes to 4 hours before activity amoxicillin 500 mg capsule 2,000 mg PO ONCE Rx Instructions: 1 HR PRIOR TO APPT torsemide 20 mg tablet 30 mg PO BID Patient Comments: For one month then will just be taking 1 tablet BID amiodarone 200 mg tablet 400 mg PO BID levothyroxine 112 mcg tablet 224 mcg PO QDAY Qty: 180 3RF ropinirole 4 mg tablet 4 mg PO TID Qty: 360 3RF Rx Instructions: 1 Qam, 1 Qpm, 2 QHS temazepam 30 mg capsule 30 mg PO QHS PRN (Reason: sleep) Qty: 30 0RF tramadol 50 mg tablet 50 mg PO Q6H PRN (Reason: pain) Qty: 30 0RF tirzepatide 10 mg/0.5 mL pen injector 10 mg subcut QWEEK Qty: 2 2RF trazodone 100 mg tablet 200 mg PO QDAY Qty: 180 2RF Jardiance 10 mg tablet 10 mg PO DAILY digoxin 125 mcg (0.125 mg) tablet 125 mcg PO DAILY ondansetron 8 mg tablet,disintegrating 8 mg PO TID PRN (Reason: nausea and vomiting) Qty: 20 0RF sulfamethoxazole-trimethoprim [Bactrim DS] 800-160 mg tablet 1 tab PO BID Qty: 14 0RF Stand Alone Forms: MyHealth Info Instructions
[2024-06-23 14:38] LABS: HCO3 VBG 30 mmol/L (21-28); PCO2 VBG 48 mmHG (40-50); PO2 VBG 78.5 mmHG (25-47); pH VBG 7.406 (7.32-7.43)
[2024-06-23 14:44] LABS: Basophils Absolute Auto 0.01 K/uL (0.00-0.30); Basophils Percent Auto 0.1 % (0.0-3.0); Eosinophils Absolute Auto 0.12 K/uL (0.00-0.50); Eosinophils Percent Auto 1.3 % (0.0-7.0); Hematocrit 35.9 % (37.0-53.0); Hemoglobin* 11.4 gm/dL (13.5-17.5); Immature Granulocytes Abs Auto 0.02 K/uL (0.00-0.30); Immature Granulocytes Pct Auto 0.2 %; Lymphocytes Absolute Auto 1.86 K/uL (0.90-2.90); Lymphocytes Percent Auto 20.8 % (20-44); Mean Corpuscular HGB Conc 32 gm/dL (32-36); Mean Corpuscular Hemoglobin 29 pg (26-34); Mean Corpuscular Volume 91 fL (80-100); Neutrophils Absolute Auto 5.42 K/uL (1.7-7.0); Neutrophils Percent Auto 60.6 % (42.0-72.0); Platelet Count* 186 K/uL (140-440); RDW Coefficient of Variation % 18.1 % (11.5-15.5); Red Blood Count 3.95 m/uL (4.30-5.90); White Blood Count* 8.95 K/uL (4.50-11.00)
[2024-06-23] MEDS: VANCOMYCIN 2 GM/400 ML 2 GM/400 ML PIGGYBACK IVPB (14:48)
[2024-06-23] MEDS: PIPERACILLIN/TAZOBACTAM 3.375 GM in 0.9 % SODIUM CHLORIDE Mini-bag 100 ML IVPB (14:55)
[2024-06-23 15:02] LABS: Albumin* 3.8 g/dL (3.3-5.0); Slide Review Reflex No
[2024-06-23 15:03] LABS: Chloride* 89 mmol/L (96-114); Potassium* 4.5 mmol/L (3.6-5.1); Sodium* 128 mmol/L (135-149)
[2024-06-23 15:04] LABS: Bilirubin Direct* 0.4 mg/dL (0.0-0.5); Bilirubin Total* 0.7 mg/dL (0.1-1.5)
[2024-06-23 15:05] LABS: Alanine Aminotransferase* 17 U/L (4-50); Alkaline Phosphatase* 95 U/L (40-150); Amylase* 87 U/L (18-89); Aspartate Amino Transferase* 28 U/L (12-35); Creatinine* 3.1 mg/dL (0.5-1.5); Est. Creatinine Clearance* 27.71; Estimated Glomerular Filt Rate 20 ml/min; Total Protein* 6.6 g/dL (6.0-8.3)
[2024-06-23 15:06] LABS: Anion Gap 10 mEq/L (7-15); Blood Urea Nitrogen* 83 mg/dL (7-30); Carbon Dioxide* 29 mmol/L (20-32); Glucose* 101 mg/dL (60-115)
[2024-06-23 15:07] LABS: Calcium* 8.5 mg/dL (8.4-10.6)
[2024-06-23 15:11] LABS: INR 2.17 (0.91-1.10); Prothrombin Time 25.8 Seconds
[2024-06-23 15:17] LABS: NT Pro B Type NatriureticPept* 2150 pg/mL; Troponin I* 0.02 ng/mL (0.01-0.04)
--- OUTSIDE RECORDS SUMMARY | 2024-06-23 15:20 | XMS_ITS | Encounter Summary ---
Author Organization [facility] Address [address] [address] Phone Care Team Providers Care Oxyhydrogen Welder Name Role Phone Aba Boo MD Primary Care Provider Reason for Visit * Reason Comments Pacemaker Problem Encounter Details Date Type Department Care Team (Late st Contact Info) Description 04/02/2024 3:26 PM CDT - 04/02/2024 4:45 PM CDT Emergency [facility] Emergency Department [address] [place] [address] [id number] Lee Frye, DO [address] [place] [address] [id number] Pacemaker complications, initial encounter (Primary Dx) Discharge [...] Code Departure Means Destination Home and/or Self Residential documented in this encounter ED Notes * [...] certainly considered. Pacemaker was interrogated. Per pacemaker contact representative the pacemaker is working appropriately. The [...] Disposition ED Disposition Discharge Condition Stable Comment [facility] thanks you for allowing us to assist you with your healthcare needs. This document contains patient education materials and information regarding your injury/illness. *If you need copies of your x-rays for a f ollow up appointment please call [phone] to arrangefor last picker. If you had an IV in [...] Primary documented in this encounter Care Teams Oxyhydrogen Welder Relationship Specialty Start Date End Date Aba Boo MD [facility] [address] [place] [address] PCP - General Family Medicine 04/02/24 documented as of this encounter
--- OUTSIDE RECORDS SUMMARY | 2024-06-23 15:20 | XMS_ITS | Encounter Summary ---
Author Organization [facility] Address [address] [address] Phone Care Team Providers Care Machine Plug Shaper Name Role Phone Aba Boo MD Primary Care Provider [phone] Reason for Visit * Reason Comments Cardiac Device Check Encounter Details Date Type Department Care Team (Latest Contact Info) Description 04/02/2024 7:00 AM CDT Cardiac Device Remote [facility] [address] [place] [id number] Ancillary, [facility] Pacer Remote Monitor Sinoatrial node [...] the original note were not included. 04/02/24 8048 Remote Impression and Plan Place of Service [place];[facility];In person Remote Monitoring;E.R.;ICD Final Impression Normal Remote Monitor with Events RVP > 40% NO Events/Comments In person care link from [employer]. Pt has been 100% AT/AF since 03/16/24 with ventricular rates 80-120s bpm for majority of time. Presenting egm supporting AT/AF VS 80-120 bpm. No ventricular events logged. Minimally PUMP HOUSE TECHNICIAN: 4.3%. Updated Dr. Frye via secure chat. Pt's device is beeping due to unsuccessful [employer] Alert transmission. Pt needs to follow up with [facility] technical support and device clinic they follow with. Follow Up Plan follow-up as scheduled Plan of Care Full report under Media/CV tab Anticoagulation (No updated med list) Battery 2.8 yrs Atrial Fib [place] % 100 RVP % 4.3 Heart Rate [...] call notification and can be viewed in [employer]. Presenting rhythm: Associated attestation - Sanjay Alvarez DO - 04/04/2024 7:25 AM CDT I have personally reviewed the device interrogation and agree with findings. Additional Comments: Battery status good Lead trends stable Sajnay Alvarez DO Cardiac Electrophysiology 04/04/2024 7:25 AM [...] documented in this encounter Care Teams Machine Plug Shaper Relationship Specialty Start Date End Date Aba Boo MD [facility] & [address] [address] PCP - General Family Medicine 04/02/24 documented as of this encounter
--- OUTSIDE RECORDS SUMMARY | 2024-06-23 15:20 | XMS_ITS | Encounter Summary ---
Author Organization [facility] Address [address] [address] Phone Care Team Providers Care Brokerage Coordinator Name Role Phone Aba Boo MD Primary Care Provider [phone] Encounter Details Date Type Department Care Team [...] on filedocumented in this encounter Care Teams Brokerage Coordinator Relationship Specialty Start Date End Date Aba Boo MD [facility] & [address] [address] PCP - General Family Medicine 04/02/24 documented as of this encounter
--- OUTSIDE RECORDS SUMMARY | 2024-06-23 15:20 | XMS_ITS | Clinical Summary ---
Author Organization [facility] Address [address] [address] Phone Care Team Providers Care Senior Sas Programmer Name Role Phone Aba Boo MD Primary Care Provider [phone] Allergies No known active allergies Encounters Date Type Department Care Team Description 04/02/2024 3:26 PM CDT - 04/02/2024 4:45 PM CDT Emergency [facility] Emergency Department [address] [place] [address] Lee Frye, Pacemaker complications, initial encounter (Primary Dx) Discharge Disposition: Home and/or Self Care 04/02/2024 7:00 AM CDT Cardiac Device Remote [facility] [address] [place] [id number] Ancillary, [facility] Pacer Remote Monitor Sinoatrial node [...] age to complete this topic Care Teams Senior Sas Programmer Relationship Specialty Start Date End Date Aba Boo MD [facility] & [address] [phone] PCP - General Family Medicine 04/02/24
--- OUTSIDE RECORDS SUMMARY | 2024-06-23 15:21 | XMS_ITS | Encounter Summary ---
Author Organization [facility] Address [address] [address] Care Team Providers Care Bottler Helper Name Role Phone Clinician, Not Found MD Primary Care Provider Un available Reason for Visit * Reason Comments Questions Encounter Details Date Type Department Care Team (Late st Contact Info) Description 12/30/2023 Telephone [facility] [address] [place], [place] [id number] Zakia Carrillo, WINDOW SYSTEMS ADMINISTRATOR, ELECT EQUIP MAINT ENG [address] [place] [address] Questions Social History Tobacco Use Types Packs/Day [...] [place] * Erendira Prince - 12/30/2023 3:02 PM [...] can we send you a message in [place]? No [Fare Enforcement Officer/Inseam Trimmer: Relay to patient; We make every effort to get back to you sameday, however it may take 1-2 business days depending on the nature of the communication.] documented in this encounter Plan of Treatment Not on file documented as of this encounter Visit Diagnoses Not on filedocumented in this encounter Care Teams Bottler Helper Relationship Specialty Start Date End Date Clinician, Not Found, [place] [address] PCP - General 06/23/20 documented as of this encounter
--- OUTSIDE RECORDS SUMMARY | 2024-06-23 15:21 | XMS_ITS | Clinical Summary ---
Author Organization [facility] Address [address] [place] [address] Care Team Providers Care Early Learning Teacher Name Role Phone Clinician, Not Found MD Primary Care Provider Un available Source Comments You are receiving this document as you are listed as the primary care provider,follow-up provider, or the patient has been referred to you for consultation.This is in compliance with the Medicare and[facility] EHR Incentive Program,which states Providers who transition their patient to another setting of careor provider of care or refers their patient to another provider of care shouldprovide summary care record for each transition of care or referral. Profitably Allergies No known active allergies Medications Medication [...] 020 Overview (06/15/2020): By Dr. Murrieta at [facility]. Ascending aorta dilation 06/15/2020 Overview (06/15/2020): [...] this topic Medical Devices Implanted Type Area Behavioral Health Worker Device Identifier Shelf Expiration Date Model / Serial / Lot Mohan Bone [employer]omet R 1x40 - [id number] Implanted:Qty: 2 on 06/15/2020 by Sanjay Murrieta MD at [facility] DEVICE Right: [employer] 07/29/2024 [id number] / / [id number] Patella All Poly Ply 41mm - [id number] Implanted:Qty: 1 on 06/15/2020 by Sanjay Murrieta MD at [facility] DEVICE Right: [employer] 06/28/2026 [id number] / / [id number] Comp Str Hyb St 14x+30 - [id number] Implanted:Qty: 1 on 06/15/2020 by Sanjay Murrieta MD at [facility] DEVICE Right: [employer] 11/26/2029 [id number] / / [id number] Stem Tib 5deg Szh Rt - [id number] Implanted:Qty: 1 on 06/15/2020 by Sanjay Murrieta MD at [facility] DEVICE Right: [employer] 01/26/2029 [id number] / / [id number] Comp Fem Ps Ccr Ps Std Sz12 Rt - [id number] Implanted:Qty: 1 on 06/15/2020 by Sanjay Murrieta MD at [facility] DEVICE Right: [employer] 06/28/2029 [id number] / / [id number] Asf Ps Ve 10mm 1012 Gh Rt - [id number] Implanted:Qty: 1 on 06/15/2020 by Sanjay Murrieta MD at [facility] DEVICE Right: [employer] 04/28/2021 [id number] / / [id number] Advance Directives * Full Code (Latest Code Status on File) Date Activated Date Inactivated Comments 06/15/2020 2:08 PM 06/17/2020 2:45 PM Care Teams Early Learning Teacher Relationship Specialty Start Date End Date Clinician, Not Found, [place] [address] PCP - General 06/23/20
--- OUTSIDE RECORDS SUMMARY | 2024-06-23 15:21 | XMS_ITS | Clinical Summary ---
Author Organization [employer] [facility] Address [place], [place] [address] Care Team Providers Care Preforms Laminator Name Role Phone Aba Boo MD Primary Care Provider + Destin Johnston MD Unavailable [phone] Nurses, Advanced Heart Failure Unavailable + Allergies [...] type, unspecified whether angina present, unspecified whether [place] or transplanted heart Take 1 Tablet (10 [...] and secondary concerned persons: Spouse Alexus Centeno [phone] Daughter Zuri [phone] Hypothyroidism 09/10/2011 Atrial fibrillation Overview (12/07/2013): - [...] Positive blood culture 10/18/202302/16 Hypotension 10/11/2023 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 Ashton. Hypothyroidism 02/17/2024 Encounters Date Type Department Care Team Description 06/23/2024 4:00 PM CDT Hospital Encounter [facility] [address] [place] [address] Aab Lynn MD Williams, David Michael, [address] [facility] [address] [place] [phone] Destin Johnston MD 06/15/2024 Telephone [facility] [address] [facility] [address] [place] [address] Sanjay Lazaro MD Questions 06/10/2024 8:00 AM CDT Office Visit [address] [place] [address] Destin Johnston MD Follow Up (F/U PER [...] should be on it again.) 06/10/2024 Telephone [facility] [address] [facility] [address] [place] [phone] Riaz Peterson MD Questions 06/09/2024 11:30 AM CDT Orders Only [facility] [address] [place] [address] Lab, [facility] 06/09/2024 Travel 06/08/2024 Orders Only [facility] [place] [address] [place] [address] Sanjay Lazaro MD <No scans attached> 06/08/2024 Telephone [facility] [place] [address] [facility] 1 [place] [address] Jono Peters MD Appointment 06/02/2024 9:45 AM CDT Office Visit [facility] [address] [facility] [place] [address] Sanjay Lazaro MD Hand Pain/problem (Right wrist numbness/tingling) 06/02/2024 Orders Only [facility] [place] [address] [place] [address] Sanjay Lazaro MD <No scans attached> 06/02/2024 Travel 05/27/2024 9:04 AM CDT Anesthesia Event [facility] [address] [place] [address] Erendira Velez MD Riley, Benjamin William, JAREN 05/27/2024 7:15 AM CDT - 05/27/2024 10:24 AM CDT Hospital Encounter [facility] [address] [place] [address] Seamus Cole MD Atrial fibrillation, persistent (HC) Discharge Disposition: Home Self Care 05/27/2024 Travel 05/24/2024 8:30 AM CDT Office Visit [address] [place] [address] Iva Johnston CNS Follow Up (CHF FOLLOWUP /POST ABLATION DONE ON 05/11... Post modified diuretic with CMP post ablation/LABS PRIOR IN [place]/I42.9 (ICD-10-CM) - Primary cardiomyopathy (HC)/I50.23 (ICD-10-CM) - Acute on chronic HFrEF (heart failure with reduced ejection fraction) (HC) /PT states feeling ok./Went into afib a couple days later going back on ) 05/24/2024 Telephone [facility] [place] [address] [facility] 400 [place] [address] Riaz Peterson MD Error-please disregard 05/24/2024 Travel 05/20/2024 12:00 PM CDT Orders Only [address] [address] Lab, [facility] 05/20/[address] [facility] [address] [place] [address] Seamus Cole MD Atrial Fibrillation 05/20/2024 Travel 05/19/[address] [facility] [address] [place] [address] Destin Johnston MD Medication Management 05/19/[address] [facility] [address] [place] [address] Marquis Santana MD Medication Management 05/19/[address] [facility] [address] [place] [address] Susana Joyner I, RN Device Check 05/19/[address] [facility] [address] [place] [address] Marquis Santana MD Device Check 05/19/[address] [facility] [address] [place] [address] Erendira Sotomayor, FORCE DISPATCHER Weight 05/14/2024 9:37 AM CDT Anesthesia Event [facility] [address] [place] [address] Aba Valerio MD 05/14/2024 7:10 AM CDT - 05/14/2024 11:40 AM CDT Hospital Encounter [facility] [address] [place] [address] Seamus Cole MD Atrial fibrillation, persistent (HC) Discharge Disposition: Home Self Care 05/14/2024 Travel 05/13/2024 9:20 AM CDT Orders Only [facility] [address] [facility] [address] [place] [address] Lab 05/13/[address] [facility] [address] [phone] Martha Warner RN 05/13/[address] [facility] [address] [phone] Marquis Santana MD Results (LFT and TSH results on Amiodarone) 05/12/2024 Travel 05/11/2024 7:46 AM CDT Anesthesia Event [facility] [address] [place] [address] Alan Yao DO 05/11/2024 5:41 AM CDT - 05/11/2024 5:50 PM CDT Hospital Encounter [facility] [address] [place] [address] Marquis Santana MD Kroll, Sharon Marie, CRNA Primary cardiomyopathy (HC) (Primary Dx); Acute on chronic HFrEF (heart failure with reduced ejection fraction) (HC) Discharge Disposition: Home Self Care 05/11/2024 Travel 05/04/[address] [facility] [address] [phone] Marquis Santana MD Medication Management 05/04/[address] [facility] [address] [place] [address] Guadalupe Rosado RN Appointment 05/03/[address] [facility] [address] [address] Marquis Santana MD Concerns (AFIB) 04/30/2024 12:03 PM CDT Anesthesia Event [facility] [address] [place] [address] Aba Valerio MD Wilson, Timothy Eric, JAREN 04/30/2024 10:08 AM CDT - 04/30/2024 3:03 PM CDT Hospital Encounter [facility] [address] [place] [address] Marquis Santana MD Discharge Disposition: Home Self Care 04/30/2024 Travel 04/27/2024 10:15 AM CDT Ancillary Procedure [address] [address] 04/27/2024 9:45 AM CDT Office Visit [address] [address] Riaz Peterson MD Recheck (EP, non-displaced left femoral neck fracture DOI:02/11/2024, x-rays) 04/27/2024 Travel 04/25/[address] [address] Dennis Barahona RN 04/22/2024 1:20 PM CDT Orders Only [address] [address] Lab, [facility] 04/22/2024 Travel 04/20/[address] [facility] [address] [address] Marquis Santana MD Atrial Fibrillation 04/19/2024 9:05 AM CDT Anesthesia Event [facility] [address] [place] [address] Marco Aguiar MD Wilson, Timothy Eric, JAREN 04/19/2024 7:18 AM CDT - 04/19/2024 10:53 AM CDT Hospital Encounter [facility] [address] [place] [address] David Ugarte NP Gebre-Amlak, Kassatihun Debebe, MD Deviley, Sarah Jean, CRNA Atrial fibrillation, unspecified type (HC) (Primary Dx) Discharge Disposition: Home Self Care 04/19/2024 Travel 04/16/2024 7:06 AM CDT - 04/16/2024 10:07 AM CDT Hospital Encounter [facility] [address] [place] [address] Marquis Santana MD Wilson, Timothy Eric, CRNA Obesity, unspecified classification, unspecified obesity type, unspecified whether serious comorbidity present (Primary Dx); Chronic systolic heart failure (HC) Discharge Disposition: Home Self Care 04/16/2024 7:05 AM CDT Anesthesia Event [facility] [address] [place] [address] Placido Chowdhury CRNA 04/16/2024 Travel 04/15/2024 Orders Only [facility] Scanner 1 scan: (1-Ord) BONITABEKA 04/15/[address] [facility] [address] [facility] [address] [place] [address] Lianna Dominguez, KELSEA Device Check (AF alert) 04/14/[address] [facility] [address] [facility] [address] [place] [address] Destin Johnston MD 04/13/2024 4:20 PM CDT Office Visit [facility] [address] [place] [address] Rosalie Sneior NP Heart Problem (Paroxysmal atrial fibrillation); Primary MD (Aba Boo MD/) 04/13/2024 8:00 AM CDT Office Visit [facility] [address] [facility] [address] [place] [address] Destin Johnston MD CV Heart Failure Est (STAT - IN PERSON F/U VISIT. [facility]S [facility] @ [facility] /Acute on chronic HFrEF (heart failure with reduced ejection fraction) //pt states he is in a-fib. He got converted on and went to primary yesterday to confirm he is in A-fib still.//) 04/13/2024 Travel 04/10/[address] [facility] [address] [facility] [address] [place] [address] Marquis Banda RN Device Check (Patient thinks he back in AF) 04/08/2024 2:40 PM CDT Anesthesia Event [facility] [address] [place], [place] [phone] Zion Leigh MD 04/08/2024 12:19 PM CDT - 04/08/2024 3:58 PM CDT Hospital Encounter [facility] [address] [place], [place] [phone] Marquis Santana MD Wilson, Timothy Eric, CRNA Kushins, Stephen Isaac, MD Persistent atrial fibrillation (HC) (Primary Dx) Discharge Disposition: Home Self Care 04/08/2024 Travel 04/07/[address] [facility] [address] [address] Marquis Santana MD Schedule Cardioversion 04/05/2024 10:30 AM CDT Office Visit [address] [address] Kathleen Boyer PA Follow Up (follow up) 04/05/2024 Travel 04/02/[address] [facility] [address] [facility] [address] [place] [address] Susaan Joyner I, KELSEA Device Check 04/02/[address] [facility] [address] [place] [phone] Destin Johnston MD Concerns (Defib beeping ) 03/30/2024 9:55 AM CDT Ancillary Procedure [facility] [address] [place] [address] 400 [place] [address] 03/30/2024 9:50 AM CDT Ancillary Procedure [address] [address] 03/30/2024 9:30 AM CDT Office Visit [address] [address] Riaz Peterson MD Hip Pain/problem (left hip pain); Chest Injury (left side rib pain) 03/30/2024 Travel 03/29/[address] [address] Riaz Peterson MD Questions from Last 3 [...] Contact Info) Description 06/25/[address] [facility] [phone] 06/29/2024 2:20 PM CDT Office Visit [facility] [address] [address] Rosalie Senior NP [address] [place] [address] 07/07/2024 11:30 AM CDT Office Visit [facility] [address] [place] [address] Chai Espinosa DPM [address] [place] [address] 07/09/2024 10:39 AM CDT Hospital Encounter [facility] [address] [place] [address] Sanjay Lazaro MD [address] [address] 07/09/2024 10:39 AM CDT - 07/09/2024 11:[address] [facility] [address] [place] [address] Sanjay Lazaro MD [address] [place] [address] RIGHT OPEN CARPAL TUNNEL RELEASE. 07/21/2024 11:00 AM CDT Office Visit [facility] [address] [place], [place] [phone] Janeth Resendez PA [address] [place], [place] [phone] Scheduled Procedures Name Priority Associated Diagnoses Date/Ti [...] history exists COVID-19 vaccine series (2 - 2023- season) 2024 06/27/2021 Influenza for age 65+ 05/30/2024 06/24/2013 Medicare Wellness for age 65+ 11/10/2024 11/10/2023, 11/28/2015 BMI (ht and wt on same day) for age 18+ 06/10/2025 06/10/2024, 05/24/2024, 04/13/2024, Additional history exists AAA screening age 65-74 Completed 03/15/2024 Medical Devices Implanted Type Area Assistant Food Service Director Device Identifier Shelf Expiration Date Model / Serial / Lot Graft Alexa 34mm - [id number] Implanted:Qty: 1 on 09/09/[address] [facility] [employer] [id number] / / Procedures Procedure Name Priority Date/Time [...] 730(H) <125 pg/mL 06/09/2024 12:42 PM CDT [facility] Blood BLOOD SPECIMEN / Unknown Venipuncture / Unknown 06/09/2024 11:43 AM CDT 06/09/2024 11:45 AM CDT Narrative [facility] - 06/09/2024 12:42 PM CDT The [...] acute congestive heart failure. ? Iva Johnston HARD TILE SETTER APPRENTICE SEND OUTS [facility] [address] [place] [address] * (ABNORMAL) BASIC METABOLIC PANEL (06/09/2024 11:43 AM CDT) Only the most recent of5 resultswithin the time period is included. SODIUM 142 136 - 145 mmol/L 06/09/2024 12:42 PM [facility] POTASSIUM 3.9 3.5 - 5.1 mmol/L 06/09/2024 12:42 PM [facility] CHLORIDE 97(L) 98 - 107 mmol/L 06/09/2024 12:42 PM [facility] CO2,TOTAL 36(H) 22 - 29 mmol/L 06/09/2024 12:42 PM [facility] ANION GAP 9 5 - 18 06/09/2024 12:42 PM [facility] GLUCOSE 92 70 - 99 mg/dL 06/09/2024 12:42 PM [facility] CALCIUM 9.7 8.8 - 10.2 mg/dL 06/09/2024 12:42 PM [facility] BUN 39(H) 8 - 23 mg/dL 06/09/2024 12:42 PM [facility] CREATININE 1.31(H) 0.70 - 1.20 mg/dL 06/09/2024 12:42 PM [facility] BUN/CREAT RATIO 30(H) 10 - 20 12:42 PM [facility] eGFR 57(L) >90 mL/min/1.7 3m2 06/09/2024 12:42 PM [facility] Comment:As of 2021, eG FR is calculated by the CKD-EPI creatinine equation without race adjustment. ??eGFR can be influenced by muscle mass, exercise, and diet. ??The reported eGFR is an estimation only and is only applicable if the renal function is stable. Blood BLOOD SPECIMEN / Unknown Venipuncture / Unknown 06/09/2024 11:43 AM CDT 06/09/2024 11:45 AM CDT Iva Johnston HARD TILE SETTER APPRENTICE CHEMISTRY [facility] [address] [place] [address] * EP CARDIOVERSION (05/27/2024 9:10 AM CDT) Anatomical Region Laterality Modality X-Ray Angiograph y Narrative 05/27/2024 9:10 AM CDT Kathi Mcmanus PA ? 05/27/2024 ??9:11 AM [facility] Cardiac Electrophysiology Procedure Note DOS: 05/27/2024 Brief [...] 200 J shock was delivered with successful shinto AP-VS rhythm, VRs 70s. ?? Complications: ??No acute complications. ?? Plan: ?? Rain Centeno is now recovering from sedation and anticipate discharge home later today. Dr. Cuadra was the collaborating physician throughout the time services were performed. Kathi Mcmanus PA-C [facility] Cardiac Electrophysiology Services Seamus Cole MD CV [...] NOW QTc 514 ms BEYOND NOW P [place] degrees BEYOND NOW R [place] -37 degrees BEYOND NOW T [place] 71 degrees BEYOND NOW 05/27/2024 9:09 AM CDT 05/28/2024 1:34 PM CDT Narrative [facility] NOW - 05/28/2024 1:34 PM CDT Test Indication: POST DCCV Kathi ARMAS EKG ORD Performing Organization Address City/[facility] Co de Phone Number BEY[facility] NOW [place], [place] * POTASSIUM,ISTAT (05/27/2024 8:04 AM CDT) Only the most recent of6 resultswithin the time period is included. Pathologist [facility] POTASSIUM, POCT 3.7 3.5 - 5.0 mmol/L 05/28/2024 8:30 AM CDT [facility] Blood BLOOD SPECIMEN / Unknown 05/27/2024 8:04 AM CDT 05/28/2024 8:30 AM CDT Seamus Cole MD CHEMISTRY Performing Organization Address [facility] Co de Phone Number [facility] [address] [place] [address], * SCAN-CARDIAC STRIP (05/27/2024 12:00 AM CDT) Narrative 05/27/2024 12:00 AM CDT Ordered by an unspecified provider. Other Clinical Staff OTHER * ALT (SGPT) (05/20/2024 11:09 AM CDT) Only the most recent of3 resultswithin the time period is included. ALT (SGPT) 28 10 - 50 IU/L 05/20/2024 2:49 PM CDT [facility] Blood BLOOD SPECIMEN / Unknown Venipuncture / Unknown 05/20/2024 11:09 AM CDT 05/20/2024 11:10 AM CDT Marquis Santana MD CHEMISTRY Performing Organization Address City/[facility]/ZIP Co de Phone Number [facility] [address] [place] [address] * AST (SGOT) (05/20/2024 11:09 AM CDT) Only the most recent of3 resultswithin the time period is included. AST (SGOT) 42 10 - 50 IU/L 05/20/2024 2:39 PM CDT [facility] Blood BLOOD SPECIMEN / Unknown Venipuncture / Unknown 05/20/2024 11:09 AM CDT 05/20/2024 11:10 AM CDT Marquis Santana MD CHEMISTRY Performing Organization Address [facility] Co de Phone Number [facility] [address] [place] [address] * EP CARDIOVERSION (05/14/2024 9:46 AM CDT) Anatomical Region Laterality Modality X-Ray Angiograph y Narrative 05/14/2024 9:46 AM CDT Seamus Cole MD ? 05/17/2024 ??7:41 AM [facility] Cardiac Electrophysiology Procedure Note DOS: 05/14/2024 Brief History: ??Mr. Centeno is a pleasant 73 year old with history of atrial arrhythmias who now presents to [facility] NPO since midnight for direct current cardioversion. ??Rivaroxaban 20 mg daily with evening meal with no missed doses in the past 21 days. Procedure Description: ??Time out was called. ??Brief general anesthesia by anesthesia service. ??Cardioversion patches were placed in an anterior/posterior position. ??One 250 joules synchronized shock delivered with shinto of an AV paced rhythm. ?? Complications: ??No acute complications. ?? Plan: ??Mr. Centeno is now recovering from sedation and would anticipate discharge home later today. Dr. Cole was readily available to provide assistance and direction throughout the time services were performed Esther Macdonald NP ?? [facility] Cardiac Electrophysiology Services Seamus Cole MD Cardiac Arrhythmia Section [facility] Seamus Cole MD CV IMAGING * SCAN-CARDIAC STRIP (05/14/2024 12:00 AM CDT) Narrative 05/14/2024 12:00 AM CDT Ordered by an unspecified provider. Other Clinical Staff OTHER * MAGNESIUM (05/13/2024 8:42 AM CDT) MAGNESIUM 1.9 1.6 - 2.4 mg/dL 05/14/2024 9:14 AM CDT [facility] Blood BLOOD SPECIMEN / Unknown Venipuncture / Unknown 05/13/2024 8:42 AM CDT 05/13/2024 8:42 AM CDT Esther Macdonald NP CHEMISTRY Performing Organization Address [facility] Co de Phone Number [facility] [address] [place] [address], * SCAN-CARDIAC STRIP (05/11/2024 1:28 PM CDT) Scanner OTHER * (ABNORMAL) ACTIVATED CLOTTING TIME [id number] ACT (05/11/2024 11:38 AM CDT) Only the most recent of6 resultswithin the time period is included. ACTIVATED CLOTTING TIME, POCT 174(H) 74 - 125 sec 05/11/2024 11:52 AM CDT [facility] Blood BLOOD SPECIMEN / Unknown 05/11/2024 11:38 AM CDT 05/11/2024 11:52 AM CDT Marquis Santaan MD HEMATOLOGY Performing Organization Address City/[facility]/ZIP Co de Phone Number [facility] [address] [place] [address], * EP STUDY /ABLATION (05/11/2024 8:13 AM CDT) Anatomical Region Laterality Modality X-Ray Angiograph y, X-Ray Angiography 05/11/2024 8:13 AM CDT Narrative Transcriptions Marquis Santana MD - 05/11/2024 5:20 PM CDT [facility] Electrophysiology Procedure Report Name: RAIN CENTENO Event Date: 05/11/2024 [facility] ID #: [id number] Date: 1950 Gender: Male Age: 73 [facility] #: [id number] Procedure Performed By: MARQUIS SANTANA [facility] Referring Physician: Summary / Conclusions 1. Complex [...] ? Same as Pre-operative diagnosis Consent & Jarratt Protocol Jarratt protocol was followed. TIME OUT conducted just [...] micropuncturetechnique, two sheaths were introduced (one 8 Fijian and one 7 Fijian)into the right femoral vein, one 9 Fijian sheath was introduced into theleft femoral vein. [...] the ACT. The patient was transported to [facility] area in stable condition for [...] Intervals Study State Underlying Rhythm Cycle Length [place] PA AH HV QRS [place] QRSMorphology Baseline Atrial Fibrillation [phone] Post Ablation [...] See Anesthesia Note Total Flouro Time: 4.5 REHABILITATION MEDICINE PHYSICIAN Total Flouro Dose: 7 mGy Transseptal Mean LA Pressure: 20 mmHg Staff Name Role Marquis Santana Mailer Mary Juarez RN Nurse Will Dumont CVT Monitor Elayne Cano CVT Scrub Mo Clancy EPClinton Purchasing Engineer Medications Ordered and Administered Start Time Stop Time Medication Dose Units Route Ordered By Given By 08:15 0.25% Bupivicaine 10 mL Subcut MD Marquis Melton MD 08:16 1% Lidocaine Hydrochloride 10 mL Subcut MD Marquis Melton MD 08:19 0.25% Bupivicaine 5 mL Subcut MD Marquis Melton MD 08:19 1% Lidocaine Hydrochloride 5 mL Subcut MD Marquis Melton MD 08:25 Heparin [id number] Units IV MD Mary Melton RN 08:37 [...] with status of Final Marquis Santana MD Mailer [facility] [address] [place] [address] (p) [phone](f) Marquis Santana MD CV IMAGING * HCHG [...] Adequate, No estimate 05/11/2024 7:24 AM CDT [facility] Blood BLOOD SPECIMEN / Unknown Venipuncture / Unknown 05/11/2024 6:13 AM CDT 05/11/2024 6:22 AM CDT Marquis Santana MD HEMATOLOGY [facility] [address] [place] [address], * (ABNORMAL) CBC with Platelet no Diff (05/11/2024 6:13 AM CDT) Pathologist [facility] WHITE BLOOD COUNT 8.5 4.5 - 11.0 thou/cu mm 05/11/2024 7:24 AM T [facility] RED BLOOD COUNT 4.01(L) 4.30 - 5.90 mil/cu mm 05/11/2024 7:24 AM T [facility] HEMOGLOBIN 11.5(L) 13.5 - 17.5 g/dL 05/11/2024 7:24 AM [facility] HEMATOCRIT 37.5 37.0 - 53.0 % 05/11/2024 7:24 AM T [facility] MCV 94 80 - 100 fL 05/11/2024 7:24 AM [facility] MCH 28.7 26.0 - 34.0 pg 05/11/2024 7:24 AM [facility] MCHC 30.7(L) 32.0 - 36.0 g/dL 05/11/2024 7:24 AM [facility] RDW 15.6(H) 11.5 - 15.5 % 05/11/2024 7:24 AM [facility] PLATELET COUNT 05/11/2024 7:24 AM [facility] Comment: Platelet clumped, unable to determine This is a corrected result. Previously reported as 108 thou/cu mm with reference range 140-440 thou/cu mm on 05/11/2024 at 0723 CDT MPV 05/11/2024 7:24 AM [facility] Comment: Unable to determine This is a corrected result. Previously reported as 11.6 fL with reference range 6.5-11.0 fL on 05/11/2024 at 0723 CDT NRBC 0.0 % 05/11/2024 7:24 AM [facility] ABS NRBC 0.0 thou /cu mm 05/11/2024 7:24 AM [facility] TRAL LABORATORY Blood BLOOD SPECIMEN / Unknown Venipuncture / Unknown 05/11/2024 6:13 AM CDT 05/11/2024 6:22 AM CDT Marquis Santana MD HEMATOLOGY Performing Organization Address City/[facility]/ZIP Co de Phone Number [facility] [address] [place] [phone], * EXTRA TUBE GOLD/SST (05/11/2024 6:10 AM CDT) Blood BLOOD SPECIMEN / Unknown Extra Tube / Unknown 05/11/2024 6:10 AM CDT 05/11/2024 6:23 AM CDT Marquis Santana MD LABORATORY Performing Organization Address [facility] Co de Phone Number [facility] [address] [place] [phone], * SCAN-CARDIAC STRIP (05/11/2024 12:00 AM CDT) [...] MD DEVICE DATA Medtronic Evera MRI XT [id number] SN: [id number] Implant Date 08/03/2019 LEAD DATA Atrial Lead: Medtronic 5076 - 52 MRI SN: [id number] Implant Date 08/03/2019 RV Lead: Medtronic [id number] - 62 MRI SN: [id number] Implant Date 08/03/2019 Tachy therapy hx: none 01/2023 Presence of a glassed feedthrough creates increased risk of unexpected HV arching within the header during therapy delivery. All HV pathways have been programmed B>AX. Hx: ??DCCV 04/30/24 DCCV ??04/19/24 Location of evaluation: [facility] P/R 18 post Cardioversion Reason for [...] two weeks from his device: per cnc machine programmer reason for alert was that it was unable to send a transmission. ??Patient and family confirm that bedside monitor is plugged in. ??Provided family with [employer] Tech Support number in case this happens again. Follow up: as previously scheduled [facility] remote on 06/25/24 prior to seeing Rosemarie Senior NP in [place] Routine follow up: Every 3 - 4 months via [facility] remote with annual [place] or clinic with Dr. Santana each February. Susana Joyner, RN Nurse Clinician II [facility] Pacemaker/ICD Clinic [phone] Marquis Santana MD CARDIAC SERVICES ORD * EP CARDIOVERSION (04/30/2024 12:06 PM CDT) Anatomical Region Laterality Modality X-Ray Angiograph y Narrative 04/30/2024 12:06 PM CDT Noar Lara NP ? 04/30/2024 12:21 PM [facility] Cardiac Electrophysiology Procedure Note DOS: 04/30/2024 Brief [...] ??One 200 joules synchronized shock delivered with shinto of sinus rhythm. ?? Complications: ??No acute complications. ?? Plan: ?? Rain Centeno is now recovering from sedation and would anticipate discharge home later today. Dr. Juarez was readily available to provide assistance and direction throughout the time services were performed Nora Lara NP [facility] Cardiac Electrophysiology Marquis Santana MD CV IMAGING [...] This radiology exam was performed at the [facility] Orthopedic Radiology Department in [place] and interpreted by Riaz Peterson MD. HISTORY: [...] 4.20 uIU/mL 04/22/2024 2:25 PM CDT [facility] Blood BLOOD SPECIMEN / Unknown Venipuncture / Unknown 04/22/2024 1:29 PM CDT 04/22/2024 1:29 PM CDT Narrative [facility] - 04/22/2024 2:25 PM CDT In Adults, TSH values between 5.00 and 10.00 uIU/ml do not necessarily indicate the presence of Hypothyroidism. Correlation with clinical findings such as presence of goiter and/or Thyroperoxidase (TPO) Antibody may be helpful. For more information please refer to YU 2004; 291: 228-238. Marquis Santana MD CHEMISTRY [facility] [address] [place] [address] * SCAN-CARDIAC STRIP (04/19/2024 12:00 AM CDT) Narrative 04/19/2024 12:00 AM CDT Ordered by an unspecified provider. Other Clinical Staff OTHER * SCAN-ELECTROMYOGRAM EMG (04/15/2024 12:00 AM CDT) Scanner OTHER * EP CARDIOVERSION (04/08/2024 2:44 PM CDT) Anatomical Region Laterality Modality X-Ray Angiograph y Narrative 04/08/2024 2:44 PM CDT Seamus Cole MD ? 04/08/2024 ??4:11 PM [facility] Cardiac Electrophysiology Procedure Note DOS: 04/08/2024 Brief History: ??Rain Centeno is a pleasant 73 y.o. year old with history of persistent atrial fibrillation who now presents to [facility] NPO since midnight for direct current [...] services were performed David Ugarte NP [facility] Cardiac Electrophysiology Seamus Cole MD Cardiac Arrhythmia Section [facility] Marquis Santana MD CV IMAGING * SCAN-CARDIAC [...] @ Alonzo ??2 2023 ??3:21PM (Electronically Signed) [email or web address] Narrative 03/30/2024 3:21 PM CDT For Patients: [...] @ Mar 30 2024 3:21PM (Electronically Signed) [email or web address] Riaz Peterson MD GENERAL IMAGING * CT [...] - 199 mg/dL 01/07/2018 6:28 PM CDT [facility] TRIGLYCERIDES 194(H) <150 mg/dL 01/07/2018 6:28 PM CDT [facility] HDL CHOLESTEROL 64 >40 mg/dL 8 6:28 PM CDT [facility] NON-HDL CHOLESTEROL 110 <145 mg/dl 01/07/2018 6:28 PM CDT [facility] CHOL/HDL RATIO 2.72 <4.50 01/07/2018 6:28 PM CDT [facility] LDL CHOLESTEROL 71 <=130 mg/dL 01/07/2018 6:28 PM CDT [facility] PROVIDER ORDERED STATUS RANDOM 01/07/2018 6:28 PM CDT [facility] Blood BLOOD SPECIMEN / Unknown Venipuncture / Unknown 01/07/2018 4:35 PM CDT 01/07/2018 4:39 PM CDT Aba Boo MD CHEMISTRY Performing Organization Address City/State/[facility] [place] [address] from Last 3 Months or Most Recently [...] Comments Code Status Discussion: Other Care Teams Preforms Laminator Relationship Specialty Start Date End Date Aba Boo MD [address] [place] [address] PCP - General Family Practice 11/18/19 Destin Johnston MD [address] [place] [phone] Cardiology - CHF Cardiovascular Disease 04/14/20 Nurses, Advanced Heart Failure [address] [place] [address] Advanced Heart Failure/Transplant Card 04/14/20
[2024-06-23 15:22] LABS: PCR FLU A Negative PCR FLU A (Negative); PCR FLU B Negative PCR FLU B (Negative); PCR RSV Negative PCR RSV (Negative); SARS PCR* Negative SARS-CoV-2 (Negative)
[2024-06-23 15:25] LABS: C Reactive Protein* 19.6 mg/dL (0.5-1.0)
[2024-06-23] MEDS: 0.9 % SODIUM CHLORIDE 500 ML 500 ML IV (16:10)
== END 2024-06-23 16:47 | disposition short-term general hospital (02) ==
LOC: ED 15:19
PROVIDERS: Emergency Provider Family Medicine; PCP Family Medicine
DX: L03.116 Cellulitis of left lower limb (principal); A41.89 Other specified sepsis; I95.9 Hypotension, unspecified
CPT/HCPCS: 36415; 80048; 80076; 81001; 82150; 82803; 83880; 84484; 85025; 85610; 86140; 87040; 87070; 87086; 87631; 93005; 94761; 96365; 96366; 99285; 99291; 99292; J2543; J3372; J7030

== ENCOUNTER 2024-06-23 16:28 | Outpatient (CLI) | payer MEDICARE, BC, SELFPAY ==
--- OUTSIDE RECORDS SUMMARY | 2024-06-26 03:18 | XMS_ITS | Encounter Summary ---
Author Organization [facility] Address [address] [address] Phone Care Team Providers Care Caramel Cutter Hand Name Role Phone Aba Boo MD Primary Care Provider [phone] Encounter Details Date Type Department Care Team [...] on filedocumented in this encounter Care Teams Caramel Cutter Hand Relationship Specialty Start Date End Date Aba Boo MD [facility] & [address] [phone] PCP - General Family Medicine 04/02/24 documented as of this encounter
--- OUTSIDE RECORDS SUMMARY | 2024-06-26 03:18 | XMS_ITS | Encounter Summary ---
Author Organization [facility] Address [address] [address] Phone Care Team Providers Care Forepart Rasper Name Role Phone Aba Boo MD Primary Care Provider [phone] Reason for Visit * Reason Comments Cardiac Device Check Encounter Details Date Type Department Care Team (Latest Contact Info) Description 04/02/2024 7:00 AM CDT Cardiac Device Remote [facility] [address] [place] [phone] Ancillary, [facility] Pacer Remote Monitor Sinoatrial node [...] the original note were not included. 04/02/24 8524 Remote Impression and Plan Place of Service [place];[employer];In person Remote Monitoring;E.R.;ICD Final Impression Normal Remote Monitor with Events RVP > 40% NO Events/Comments In person care link from [facility]. Pt has been 100% AT/AF since 03/16/24 with ventricular rates 80-120s bpm for majority of time. Presenting egm supporting AT/AF VS 80-120 bpm. No ventricular events logged. 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 Updated Dr. Frye via secure chat. Pt's device is beeping due to unsuccessful [employer] Alert transmission. Pt needs to follow up with [facility] technical support and device clinic they follow with. Follow Up Plan follow-up as scheduled Plan of Care Full report under Media/CV tab Anticoagulation (No updated med list) Battery 2.8 yrs Atrial Fib [place] % 100 RVP % 4.3 Heart Rate [...] call notification and can be viewed in [employer]. Presenting rhythm: Associated attestation - Sanjay Alvarez [...] situ documented in this encounter Care Teams Forepart Rasper Relationship Specialty Start Date End Date Aba Boo MD [facility] & [address] [phone] PCP - General Family Medicine 04/02/24 documented as of this encounter
--- OUTSIDE RECORDS SUMMARY | 2024-06-26 03:18 | XMS_ITS | Clinical Summary ---
Author Organization [facility] Address [address] [address] Phone Care Team Providers Care Control Systems Engineer Name Role Phone Aba Boo MD Primary Care Provider Allergies No known active allergies Encounters Date Type Department Care Team Description 04/02/2024 3:26 PM CDT - 04/02/2024 4:45 PM CDT Emergency [facility] Emergency Department [address] [place] [address] Lee Frye, Pacemaker complications, initial encounter (Primary Dx) Discharge Disposition: Home and/or Self Care 04/02/2024 7:00 AM CDT Cardiac Device Remote [facility] [address] [place] [phone] Ancillary, [facility] Pacer Remote Monitor Sinoatrial node dysfunction (HCC) [...] age to complete this topic Care Teams Control Systems Engineer Relationship Specialty Start Date End Date Aba Boo MD [facility] & [address] [phone] PCP - General Family Medicine 04/02/24
--- OUTSIDE RECORDS SUMMARY | 2024-06-26 03:19 | XMS_ITS | Clinical Summary ---
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 Phone Number [facility] [address] [address], [place] * (ABNORMAL) PHOSPHORUS (06/25/2024 5:30 AM CDT) Only the most recent of3 resultswithin the time period is included. PHOSPHORUS 2.2(L) 2.5 - 4.5 mg/dL 06/25/2024 6:30 AM CDT [facility] Blood BLOOD SPECIMEN / Unknown Butterfly / Unknown 06/25/2024 5:30 AM CDT 06/25/2024 5:43 AM CDT Aba Lynn DO CHEMISTRY [facility] [address] [place] [address], [place] * MAGNESIUM (06/25/2024 5:30 AM CDT) Only the most recent of4 resultswithin the time period is included. MAGNESIUM 2.4 1.6 - 2.4 mg/dL 06/25/2024 6:22 AM T [facility] Blood BLOOD SPECIMEN / Unknown Butterfly / Unknown 06/25/2024 5:30 AM CDT 06/25/2024 5:43 AM CDT Aba Lynn DO CHEMISTRY [facility] [address] [place] [address], * (ABNORMAL) BASIC METABOLIC PANEL (06/25/2024 5:30 AM CDT) Only the most recent of8 resultswithin the time period is included. SODIUM 139 136 - 145 mmol/L 06/25/2024 6:[address] [facility] POTASSIUM 4.6 3.5 - 5.1 mmol/L 06/25/2024 6:[address] [facility] CHLORIDE 103 98 - 107 mmol/L 06/25/2024 6:[address] [facility] CO2,TOTAL 28 22 - 29 mmol/L 06/25/2024 6:[address] [facility] ANION GAP 8 5 - 18 06/25/2024 6:[address] [facility] GLUCOSE 94 70 - 99 mg/dL 06/25/2024 6:[address] [facility] CALCIUM 8.5(L) 8.8 - 10.2 mg/dL 06/25/2024 6:[address] [facility] BUN 30(H) 8 - 23 mg/dL 06/25/2024 6:[address] [facility] CREATININE 1.18 0.70 - 1.20 mg/dL 06/25/2024 6:[address] [facility] BUN/CREAT RATIO 25(H) 10 - 20 6:22 AM CDT [facility] eGFR 65(L) >90 mL/min/1.7 3m2 06/25/2024 6:22 AM CDT [facility] Comment:As of 2021, eG FR is calculated by the CKD-EPI creatinine equation without race adjustment. ??eGFR can be influenced by muscle mass, exercise, and diet. ??The reported eGFR is an estimation only and is only applicable if the renal function is stable. Blood BLOOD SPECIMEN / Unknown Butterfly / Unknown 06/25/2024 5:30 AM CDT 06/25/2024 5:43 AM CDT Marty Vásquez MD CHEMISTRY Performing Organization Address City/[facility]/ZIP Co de Phone Number [facility] [address] [place] [address], * CALCIUM IONIZED HOSPITAL DRAW ONLY (06/25/2024 2:49 AM CDT) Only the most recent of3 resultswithin the time period is included. CALCIUM,IONIZE D 1.17 1.15 - 1.27 mmol/L 06/25/2024 3:02 AM CDT [facility] Blood BLOOD SPECIMEN / Unknown Butterfly / Unknown 06/25/2024 2:49 AM CDT 06/25/2024 2:56 AM CDT Marty Vásquez MD CHEMISTRY Performing Organization Address City/[facility] Co de Phone Number [facility] [address] [place] [address], * (ABNORMAL) HEMOGLOBIN (06/24/2024 10:29 PM CDT) HEMOGLOBIN 11.3(L) 13.5 - 17.5 g/dL 06/24/2024 10:41 PM CDT [facility] MCV 94 80 - 100 fL 06/24/2024 10:41 PM CDT [facility] Blood BLOOD SPECIMEN / Unknown Butterfly / Unknown 06/24/2024 10:29 PM CDT 06/24/2024 10:38 PM CDT Alvaro NARVAEZ HEMATOLOGY Performing Organization Address [facility]/ZIP Co de Phone Number [facility] [address] [place] [address], * SCAN CORRESP-EKG RESULTS (06/24/2024 11:58 AM CDT) Narrative 06/24/2024 11:58 AM CDT Ordered by an unspecified provider. Other Clinical Staff OTHER * SCAN-CARDIAC STRIP (06/24/2024 7:22 AM CDT) Scanner OTHER * POTASSIUM (06/24/2024 6:19 AM CDT) [facility] POTASSIUM 4.8 3.5 - 5.1 mmol/L 06/24/2024 7:12 AM CDT [facility] Blood BLOOD SPECIMEN / Unknown Butterfly / Unknown 06/24/2024 6:19 AM CDT 06/24/2024 6:35 AM CDT Aba Lynn DO CHEMISTRY Performing Organization Address [facility] Co de Phone Number [facility] [address] * (ABNORMAL) CBC WITH AUTO DIFFERENTIAL (06/24/2024 4:39 AM CDT) Only the most recent of2 resultswithin the time period is included. Pathologist [facility] WHITE BLOOD COUNT 10.4 4.5 - 11.0 thou/cu mm 06/24/2024 5:01 AM CDT [facility] RED BLOOD COUNT 4.10(L) 4.30 - 5.90 mil/cu mm 06/24/2024 5:01 AM CDT [facility] HEMOGLOBIN 11.5(L) 13.5 - 17.5 g/dL 06/24/2024 5:01 AM CDT [facility] HEMATOCRIT 38.1 37.0 - 53.0 % 06/24/2024 5:[address] [facility] MCV 93 80 - 100 fL 06/24/2024 5:[address] [facility] MCH 28.0 26.0 - 34.0 pg 06/24/2024 5:[address] [facility] MCHC 30.2(L) 32.0 - 36.0 g/dL 06/24/2024 5:[address] [facility] RDW 18.5(H) 11.5 - 15.5 % 06/24/2024 5:[address] [facility] PLATELET COUNT 216 140 - 440 thou/cu mm 06/24/2024 5:[address] [facility] MPV 10.4 6.5 - 11.0 fL 06/24/2024 5:[address] [facility] NRBC 0.0 % 06/24/2024 5:[address] [facility] ABS NRBC 0.0 thou /cu mm 06/24/2024 5:[address] [facility] % NEUT 55.9 % 06/24/2024 5:[address] [facility] % LYMPH 26.7 % 06/24/2024 5:[address] [facility] % MONO 13.6 % 06/24/2024 5:[address] [facility] % EOS 2.7 % 06/24/2024 5:[address] [facility] % BASO 0.5 % 06/24/2024 5:[address] [facility] % IMMATURE GRAN (METAS,MYELOS,WY OS) 0.6 % 06/24/2024 5:[address] [facility] ABSOLUTE NEUTROPHILS 5.8 1.7 - 7.0 thou/cu mm 06/24/2024 5:[address] [facility] ABSOLUTE LYMPHOCYTES 2.8 0.9 - 2.9 thou/cu mm 06/24/2024 5:01 AM CDT [facility] ABSOLUTE MONOCYTES 1.4(H) <0.9 thou/cu mm 06/24/2024 5:01 AM CDT [facility] ABSOLUTE EOSINOPHILS 0.3 <0.5 thou/cu mm 06/24/2024 5:01 AM CDT [facility] ABSOLUTE BASOPHILS 0.1 <0.3 thou/cu mm 06/24/2024 5:01 AM CDT [facility] ABSOLUTE IMMATURE GRANULOCYTES(MET ,MYELOS,PROS) 0.1 <0.3 thou/cu mm 06/24/2024 5:01 AM CDT [facility] Blood BLOOD SPECIMEN / Unknown IV Start / Unknown 06/24/2024 4:39 AM CDT 06/24/2024 4:56 AM CDT Aba Lynn DO HEMATOLOGY [facility] [address] [place] [address], * (ABNORMAL) HEPATIC FUNCTION PANEL (06/24/2024 4:39 AM CDT) Only the most recent of2 resultswithin the time period is included. ALBUMIN 3.9(L) 4.0 - 4.9 g/dL 06/24/2024 5:56 AM CDT [facility] PROTEIN,TOTAL 6.4 6.0 - 8.0 g/dL 06/24/2024 5:56 AM CDT [facility] BILIRUBIN,TOTAL 0.4 0.0 - 1.2 mg/dL 06/24/2024 5:56 AM CDT [facility] BILIRUBIN,DIRECT 06/24/20 5:56 AM CDT [facility] Comment:Canceled- Specimen H emolyzed, Disposition Per Policy ALK PHOSPHATASE 117 40 - 129 IU/L 06/24/2024 5:56 AM CDT [facility] ALT (SGPT) 06/24/2024 5:56 AM CDT [facility] Comment:Canceled- Specimen H emolyzed, Disposition Per Policy AST (SGOT) 06/24/2024 5:56 AM CDT [facility] Comment:Canceled- Specimen H emolyzed, Disposition Per Policy Blood BLOOD SPECIMEN / Unknown IV Start / Unknown 06/24/2024 4:39 AM CDT 06/24/2024 4:55 AM CDT Aba Lynn DO CHEMISTRY Performing Organization Address City/[facility]/ZIP Co de Phone Number [facility] [address] [place] [address], * MRSA/SA PCR (06/24/2024 2:43 AM CDT) MRSA DNA PCR Negative Negative 06/24/2024 4:04 AM CDT [facility] NTRAL LABORATORY STAPHYLOCOCCUS AUREUS PCR Negative Negative 06/24/2024 4:04 AM CDT [facility] Other SPECIMEN FROM INTERNAL NOSE / Unknown Non-Blood / Unknown 06/24/2024 2:43 AM CDT 06/24/2024 2:53 AM CDT Narrative [facility] - 06/24/2024 4:04 AM CDT Test result does not preclude MRSA or SA nasal colonization. Aba Lynn DO MICROBIOLOGY Performing Organization Address City/[facility]/ZIP Co de Phone Number [facility] [address] [place] [address], * SCAN-CARDIAC STRIP (06/24/2024 1:24 AM CDT) Scanner OTHER * VANCOMYCIN (06/23/2024 9:36 PM CDT) VANCOMYCIN 15.9 ug/mL 06/23/2024 10:17 PM CDT [facility] Comment:No Reference Range D efined. DATE OF LAST DOSE,RANDOM Not Given 06/23/2024 10:17 PM CDT [facility] TR[facility] LAB[facility]ATORY TIME OF LAST DOSE,RANDOM Not Given 06/23/2024 10:17 PM CDT [facility] Blood BLOOD SPECIMEN / Unknown Venipuncture / Unknown 06/23/2024 9:36 PM CDT 06/23/2024 9:46 PM CDT Aba Lynn DO CHEMISTRY Performing Organization Address City/[facility]/ZIP Co de Phone Number [facility] [address] [place] [address], [place] * SCAN-CARDIAC STRIP (06/23/2024 7:40 PM CDT) Scanner OTHER * SCAN-CARDIAC STRIP (06/23/2024 7:40 PM CDT) Scanner OTHER * 12 Lead EKG (06/23/2024 6:25 PM CDT) Only the most recent of14 resultswithin the time period is included. Interpretation Atrial-paced rhythm with prolonged AV conduction Left axis deviation Non-specific intra-ventric ular conduction block Cannot rule out Septal infarct (cited on or before 10-Sep-2011) Possible Lateral infarct (cited on or before 10-Sep-2011) Cannot rule out Inferior infarct (cited on or before 10-Sep-2011) Abnormal ECG When compared with ECG of 27-May-2024 09:09, Questionable change in initial forces of Anterior leads BEYOND NOW Ventricular Rate 70 BPM BEYOND NOW Atrial Rate 70 BPM BEYOND NOW P-R Interval 230 ms BEYOND NOW QRS Duration 134 ms BEYOND NOW QT 454 ms BEYOND NOW QTc 490 ms BEYOND NOW P [place]ier degrees BEYOND NOW R Chataignier -30 degrees BEYOND NOW T [place]ier 92 degrees BEYOND NOW 06/23/2024 6:25 PM CDT 06/24/2024 12:52 PM CDT Aba Lynn DO EKG ORD Performing Organization Address City/[facility]/ZIP Co de Phone Number BEYOND NOW [place], [place] * LACTATE VENOUS (06/23/2024 6:23 PM CDT) LACTATE,VENOUS 1.1 0.5 - 2.0 mmol/L 06/23/2024 6:58 PM CDT [facility] Blood BLOOD SPECIMEN / Unknown Venipuncture / Unknown 06/23/2024 6:23 PM CDT 06/23/2024 6:34 PM CDT Aba Lynn DO CHEMISTRY Performing Organization Address [facility] Co de Phone Number [facility] [address] [place] [address], [place] * (ABNORMAL) Protime - INR (06/23/2024 6:23 PM CDT) Pathologist [facility] INR 1.6(H) <1.3 06/23/2024 6:46 PM CDT [facility] PROTIME 17.5(H) 10.3 - 12.3 sec 06/23/2024 6:46 PM CDT [facility] Blood BLOOD SPECIMEN / Unknown Venipuncture / Unknown 06/23/2024 6:23 PM CDT 06/23/2024 6:34 PM CDT Narrative [facility] - 06/23/2024 6:46 PM CDT ?Therapeutic Range 2.0-3.0 for most [...] seconds if the patient is on UFH. Aba Lynn DO HEMATOLOGY Performing Organization Address City/[facility]/ZIP Co de Phone Number [facility] [address] [place] [address], [place] * XR CHEST 1 VIEW PORTABLE (06/23/2024 6:17 PM CDT) Anatomical Region Laterality Modality HEART, THORAX, CHEST Digital Rad iography 06/23/2024 7:44 PM CDT Impressions 06/23/2024 7:44 PM CDT Hypoinflated lungs. Streaky left basilar opacities, likely atelectasis. No large focal consolidation. Dictated by Anna Osorio MD @ Jun 23 2024 ??7:44PM (Electronically Signed) [email or web address] Narrative 06/23/2024 7:44 PM CDT For Patients: ??As a result of the Cures Act, medical imaging exams and procedure reports are released immediately into your electronic medical record. ??You may view this report before your referring provider. ??If you have questions, please contact your health care provider. INDICATION: Evaluate lung infiltrate. TECHNIQUE: Chest 1 view(s) COMPARISON: Chest radiograph dated 03/30/2024. FINDINGS: AICD in the left chest wall. Postsurgical changes of median sternotomy. Stable cardiomegaly. Pulmonary vasculature is normal. Lungs are hypoinflated. Streaky left basilar opacities, likely atelectasis. No large focal consolidation. No layering pleural effusion. No pneumothorax. No acute chest wall abnormality. Procedure Note Anna Osorio MD - 06/23/2024 For Patients: As a result of the Cures Act, medical imagingexams and procedure reports are released immediately into your electronicmedical record. You may view this report before your referring provider.If you have questions, please contact your health care provider. INDICATION: Evaluate lung infiltrate. TECHNIQUE: Chest 1 view(s) COMPARISON: Chest radiograph dated 03/30/2024. FINDINGS: AICD in the left chest wall. Postsurgical changes of median sternotomy.Stable cardiomegaly. Pulmonary vasculature is normal. Lungs are hypoinflated. Streaky left basilar opacities, likelyatelectasis. No large focal consolidation. No layering pleural effusion. No pneumothorax. No acute chest wall abnormality. IMPRESSION: Hypoinflated lungs. Streaky left basilar opacities, likely atelectasis. Nolarge focal consolidation. Dictated by Anna Osorio MD @ Jun 23 2024 7:44PM (Electronically Signed) [email or web address] Aba Lynn DO GENERAL IMAGIN G * (ABNORMAL) PRO-BNP (06/09/2024 11:43 AM CDT) Only the most recent of4 resultswithin the time period is included. PRO-BNP 730(H) <125 pg/mL 06/09/2024 12:42 PM CDT [facility] Blood BLOOD SPECIMEN / Unknown Venipuncture / Unknown 06/09/2024 11:43 AM CDT 06/09/2024 11:45 AM CDT [facility] LABORATORY - 06/09/2024 12:42 PM CDT The [...] heart failure. ? Iva TOBAR SEND OUTS [facility] [address] [place] [address] * EP CARDIOVERSION (05/27/2024 9:10 AM CDT) Anatomical Region Laterality Modality X-Ray Angiograph y Narrative 05/27/2024 9:10 AM CDT Kathi Mcmanus PA ? 05/27/2024 ??9:11 AM [facility] Cardiac Electrophysiology Procedure Note DOS: 05/27/2024 [...] 200 J shock was delivered with successful latter day AP-VS rhythm, VRs 70s. ?? Complications: ??No acute complications. ?? Plan: ?? Rain Centeno is now recovering from sedation and anticipate discharge home later today. Dr. Cuadra was the collaborating physician throughout the time services were performed. Kathi Mcmanus PA-C [facility] Cardiac Electrophysiology Services Seamus Cole MD CV IMAGING * POTASSIUM,ISTAT (05/27/2024 8:04 AM CDT) Only the most recent of6 resultswithin the time period is included. Pathologist [facility] POTASSIUM, POCT 3.7 3.5 - 5.0 mmol/L 05/28/2024 8:[address] [facility] Blood BLOOD SPECIMEN / Unknown 05/27/2024 8:04 AM CDT 05/28/2024 8:30 AM CDT Seamus Cole MD CHEMISTRY [facility] [employer] [facility] [address] [place] [address], * SCAN-CARDIAC STRIP (05/27/2024 12:00 AM CDT) Narrative 05/27/2024 12:00 AM CDT Ordered by an unspecified provider. Other Clinical Staff OTHER * ALT (SGPT) (05/20/2024 11:09 AM CDT) Only the most recent of3 resultswithin the time period is included. ALT (SGPT) 28 10 - 50 IU/L 05/20/2024 2:49 PM CDT [facility] Blood BLOOD SPECIMEN / Unknown Venipuncture / Unknown 05/20/2024 11:09 AM CDT 05/20/2024 11:10 AM CDT Marquis Santana MD CHEMISTRY Performing Organization Address City/[facility]/ZIP Co de Phone Number [facility] [address] [place] [address] * AST (SGOT) (05/20/2024 11:09 AM CDT) Only the most recent of3 resultswithin the time period is included. AST (SGOT) 42 10 - 50 IU/L 05/20/2024 2:39 PM CDT [facility] Blood BLOOD SPECIMEN / Unknown Venipuncture / Unknown 05/20/2024 11:09 AM CDT 05/20/2024 11:10 AM CDT Marquis Santana MD CHEMISTRY Performing Organization Address City/[facility]/ZIP Co de Phone Number [facility] [address] [place] [address] * EP CARDIOVERSION (05/14/2024 9:46 AM CDT) Anatomical Region Laterality Modality X-Ray Angiograph y Narrative 05/14/2024 9:46 AM CDT Seamus Cole MD ? 05/17/2024 ??7:41 AM [facility] Cardiac Electrophysiology Procedure Note DOS: 05/14/2024 Brief History: ??Mr. Cetneno is a pleasant 73 year old with history of atrial arrhythmias who now presents to [facility] NPO since midnight for direct current cardioversion. ??Rivaroxaban 20 mg daily with evening meal with no missed doses in the past 21 days. Procedure Description: ??Time out was called. ??Brief general anesthesia by anesthesia service. ??Cardioversion patches were placed in an anterior/posterior position. ??One 250 joules synchronized shock delivered with latter day of an AV paced rhythm. ?? Complications: ??No acute complications. ?? Plan: ??Mr. Centeno is now recovering from sedation and would anticipate discharge home later today. Dr. Cole was readily available to provide assistance and direction throughout the time services were performed Esther Macdonald NP ?? [facility] Cardiac Electrophysiology Services Seamus Cole MD Cardiac Arrhythmia Section [facility] Seamus Cole MD CV IMAGING * SCAN-CARDIAC STRIP (05/14/2024 12:00 AM CDT) Narrative 05/14/2024 12:00 AM CDT Ordered by an unspecified provider. Other Clinical Staff OTHER * SCAN-CARDIAC STRIP (05/11/2024 1:28 PM CDT) Scanner OTHER * (ABNORMAL) ACTIVATED CLOTTING TIME [id number] ACT (05/11/2024 11:38 AM CDT) Only the most recent of6 resultswithin the time period is included. ACTIVATED CLOTTING TIME, POCT 174(H) 74 - 125 sec 05/11/2024 11:52 AM CDT [facility] Blood BLOOD SPECIMEN / Unknown 05/11/2024 11:38 AM CDT 05/11/2024 11:52 AM CDT Marquis Santana MD [facility]OLOG[facility] [address] [place] [address], * EP STUDY /ABLATION (05/11/2024 8:13 AM CDT) Anatomical Region Laterality Modality X-Ray Angiograph y, X-Ray Angiography 05/11/2024 8:13 AM CDT Narrative Transcriptions Marquis Santana MD - 05/11/2024 5:20 PM CDT [facility] Electrophysiology Procedure Report Name: RAIN CENTENO Event Date: 05/11/2024 Katiuskaian ID #: [id number] Date: 1950 Gender: Male Age: 73 [facility] #: [id number] Procedure Performed By: MARQUIS SANTANA [facility] Referring Physician: Summary / Conclusions 1. [...] ? Same as Pre-operative diagnosis Consent & [place] Protocol [place] protocol was followed. TIME OUT conducted just [...] micropuncturetechnique, two sheaths were introduced (one 8 Citizen [place] and one 7 [place])into the right femoral vein, one 9 [place] sheath was introduced into theleft femoral vein. [...] the ACT. The patient was transported to [facility] in stable condition for further monitoring. [...] Intervals Study State Underlying Rhythm Cycle Length [place] PA AH HV QRS Chataignier QRSMorphology Baseline Atrial Fibrillation [phone] Post Ablation [...] See Anesthesia Note Total Flouro Time: 4.5 CONSUMER AFFAIRS MANAGER Total Flouro Dose: 7 mGy Transseptal Mean LA Pressure: 20 mmHg Staff Name Role Marquis Santana Customer Services Manager Mary Juarez RN Nurse Will Dumont CVT Monitor Elayne Cano CVT Scrub Mo Clancy EPT Interactive Project Manager Medications Ordered and Administered Start Time Stop Time Medication Dose Units Route Ordered By Given By 08:15 0.25% Bupivicaine 10 mL Subcut MD Marquis Melton MD 08:16 1% Lidocaine Hydrochloride 10 mL Subcut MD Marquis Melton MD 08:19 0.25% Bupivicaine 5 mL Subcut MD Marquis Melton MD 08:19 1% Lidocaine Hydrochloride 5 mL Subcut MD Marquis Melton MD 08:25 Heparin [id number] Units IV MD Mary Melton RN 08:37 [...] with status of Final Marquis Santana MD Customer Services Manager [facility] [phone] [place] [address] (p) [phone]) Marquis Santana MD CV IMAGING * HCHG [...] Adequate, No estimate 05/11/2024 7:24 AM CDT [facility] Blood BLOOD SPECIMEN / Unknown Venipuncture / Unknown 05/11/2024 6:13 AM CDT 05/11/2024 6:22 AM CDT Marquis Santana MD HEMATOLOGY Performing Organization Address City/[facility]/ZIP Co de Phone Number [facility] [address] [id number], [place] * EXTRA TUBE GOLD/SST (05/11/2024 6:10 AM CDT) Blood BLOOD SPECIMEN / Unknown Extra Tube / Unknown 05/11/2024 6:10 AM CDT 05/11/2024 6:23 AM CDT Marquis Santana MD [facility] [address] [place] [address], [place] * SCAN-CARDIAC STRIP (05/11/2024 12:00 AM CDT) Narrative 05/11/2024 12:00 AM CDT Ordered by an unspecified provider. Other Clinical Staff OTHER * ICD ANALYSIS DUAL WITHOUT REPROGRAM (04/30/2024 1:46 PM CDT) Narrative Marquis Santana MD - 04/30/2024 1:46 PM CDT Susana Joyner I, KELSEA ? 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 All HV pathways have been programmed B>AX. Hx: ??DCCV 04/30/24 DCCV ??04/19/24 Location of evaluation: [facility] P/R 18 post Cardioversion Reason for [...] past two weeks from his device: per junior programmer reason for alert was that it was unable to send a transmission. ??Patient and family confirm that bedside monitor is plugged in. ??Provided family with [employer] Support number in case this happens again. Follow up: as previously scheduled [facility] on 06/25/24 prior to seeing Rosemarie Senior NP in [place] Routine follow up: Every 3 - 4 months via [facility] with annual [place] or clinic with Dr. Santana each February. Susana Joyner, RN Nurse Clinician II [facility] Pacemaker/ICD Clinic [phone] Marquis Santana MD CARDIAC SERVICES ORD * EP CARDIOVERSION (04/30/2024 12:06 PM CDT) Anatomical Region Laterality Modality X-Ray Angiograph y Narrative 04/30/2024 12:06 PM CDT Nora Lara NP ? 04/30/2024 12:21 PM [facility] Cardiac Electrophysiology Procedure Note DOS: 04/30/2024 Brief History: ??Rain Centeno is a pleasant 73 y.o. year old with history of atrial fibrillation who now presents to [facility] NPO since midnight for direct current cardioversion. ??Xarelto 20 mg daily with no missed doses for at least 3 consecutive weeks. ?? Procedure Description: ??Time out was called. ??Brief general anesthesia by anesthesia service. ??Cardioversion patches were placed in an anterior/posterior position. ??One 200 joules synchronized shock delivered with latter day of sinus rhythm. ?? Complications: ??No acute complications. ?? Plan: ?? Rain Centeno is now recovering from sedation and would anticipate discharge home later today. Dr. Juarez was readily available to provide assistance and direction throughout the time services were performed Nora Lara NP [facility] Cardiac Electrophysiology Marquis Santana MD CV [...] radiology exam was performed at the [facility] Orthopedic Radiology Department in [place] and interpreted by Riaz Peterson MD. HISTORY: [...] - 4.20 uIU/mL 04/22/2024 2:25 PM CDT [facility] Blood BLOOD SPECIMEN / Unknown Venipuncture / Unknown 04/22/2024 1:29 PM CDT 04/22/2024 1:29 PM CDT Narrative [facility] - 04/22/2024 2:25 PM CDT In Adults, TSH values between 5.00 and 10.00 uIU/ml do not necessarily indicate the presence of Hypothyroidism. Correlation with clinical findings such as presence of goiter and/or Thyroperoxidase (TPO) Antibody may be helpful. For more information please refer to YU 2004; 291: 228-238. Marquis Santana MD CHEMISTRY [facility] [address] [place] [address] * SCAN-CARDIAC STRIP (04/19/2024 12:00 AM CDT) Narrative 04/19/2024 12:00 AM CDT Ordered by an unspecified provider. Other Clinical Staff OTHER * SCAN-ELECTROMYOGRAM EMG (04/15/2024 12:00 AM CDT) Scanner OTHER * EP CARDIOVERSION (04/08/2024 2:44 PM CDT) Anatomical Region Laterality Modality X-Ray Angiograph y Narrative 04/08/2024 2:44 PM CDT Seamus Cole MD ? 04/08/2024 ??4:11 PM [facility] Cardiac Electrophysiology Procedure Note DOS: 04/08/2024 [...] time services were performed David Ugarte NP [facility] Cardiac Electrophysiology Seamus Cole MD Cardiac Arrhythmia Section [facility] Marquis Santana MD CV IMAGING * [...] @ Mar ??2 2023 ??3:21PM (Electronically Signed) [email or web address] Narrative 03/30/2024 3:21 PM CDT For Patients: [...] is not well evaluated radiographically. Procedure Note lAbin Hunt MD - 03/30/2024 For Patients: As [...] @ Mar 30 2024 3:21PM (Electronically Signed) [email or web address] Riaz Peterson MD GENERAL IMAGING * CT [...] (ABNORMAL) LIPID PANEL (01/07/2018 4:35 PM CDT) [facility] CHOLESTEROL,TOTAL 174 100 - 199 mg/dL 01/07/2018 6:28 PM CDT [facility] TRIGLYCERIDES 194(H) <150 mg/dL 01/07/2018 6:28 PM CDT [facility] HDL CHOLESTEROL 64 >40 mg/dL 8 6:28 PM CDT [facility] NON-HDL CHOLESTEROL 110 <145 mg/dl 01/07/2018 6:28 PM CDT [facility] CHOL/HDL RATIO 2.72 <4.50 01/07/2018 6:28 PM CDT [facility] LDL CHOLESTEROL 71 <=130 mg/dL 01/07/2018 6:28 PM CDT [facility] PROVIDER ORDERED STATUS RANDOM 01/07/2018 6:28 PM CDT [facility] Blood BLOOD SPECIMEN / Unknown Venipuncture / Unknown 01/07/2018 4:35 PM CDT 01/07/2018 4:39 PM CDT Aba Boo MD CHEMISTRY [address] [place] [address] from Last 3 Months or Most Recently Relevant to Health Maintenance Advance Directives * Full Code (Latest Code Status on File) Date Activated Date Inactivated Comments 06/23/2024 6:00 PM 06/25/2024 7:25 PM Question Answer Comments Code Status Discussion: Reviewed Preferences * Full Code Date Activated Date Inactivated Comments 05/14/2024 9:53 [...] Code Status Discussion: Reviewed Preferences Care Teams Corporate Relations Director Relationship Specialty Start Date End Date Aba Boo MD [address] [place] [address] PCP - General Family Practice 11/18/19 Destin Johnston MD [address] [place] [address] Cardiology - CHF Cardiovascular Disease 04/14/20 Nurses, Advanced Heart Failure [address] [place] [address] Advanced Heart Failure/Transplant Card 04/14/20
--- OUTSIDE RECORDS SUMMARY | 2024-06-26 03:19 | XMS_ITS | Encounter Summary ---
Author Organization [facility] Address [address] [address] Phone Care Team Providers Care Glazier Stained Glass Name Role Phone Aba Boo MD Primary Care Provider [phone] Reason for Visit * Reason Comments Pacemaker Problem Encounter Details Date Type Department Care Team (Late st Contact Info) Description 04/02/2024 3:26 PM CDT - 04/02/2024 4:45 PM CDT Emergency [facility] Emergency Department [address] [place] [phone] Lee Frye, DO [address] [place] [phone] Pacemaker complications, initial encounter (Primary Dx) Discharge [...] Code Departure Means Destination Home and/or Self Group Home documented in this encounter ED Notes * [...] certainly considered. Pacemaker was interrogated. Per pacemaker textile designs sales representative the pacemaker is working appropriately. [...] Disposition ED Disposition Discharge Condition Stable Comment [facility] thanks you for allowing us to assist you with your healthcare needs. This document contains patient education materials and information regarding your injury/illness. *If you need copies of your x-rays for a f ollow up appointment please call [phone] to arrangefor slat pickler. If you had an IV in place during your stay, please continue to monitor the site for the next 48 hours. Report any redness, swelling, drainage, or fever to your primary care phys ician. Discharge Instructions Follow-up with [employer] if symptoms persist. ExitCare Instructions None Lee Fyre DO 04/02/24 1632 * Evangelina Wadsworth RN [...] Primary documented in this encounter Care Teams Glazier Stained Glass Relationship Specialty Start Date End Date Aba Boo MD [facility] [address] [place] [address] PCP - General Family Medicine 04/02/24 documented as of this encounter
--- OUTSIDE RECORDS SUMMARY | 2024-06-26 03:19 | XMS_ITS | Encounter Summary ---
Author Organization [facility] Address [address] [address] Care Team Providers Care Qa Automation Developer Name Role Phone Clinician, Not Found MD Primary Care Provider Un available Reason for Visit * Reason Comments Questions Encounter Details Date Type Department Care Team (Late st Contact Info) Description 12/30/2023 Telephone [facility] [address] [place], [place] [address] Zakia Carrillo, CLINICAL ANALYST, SUPERVISOR LATHING [address] [place] [address] Questions Social History Tobacco Use Types Packs/Day [...] can we send you a message in [employer]? No [Terrazzo Mechanic/Personnel Interviewer: Relay to patient; We make every effort to get back to you sameday, however it may take 1-2 business days depending on the nature of the communication.] documented in this encounter Plan of Treatment Not on file documented as of this encounter Visit Diagnoses Not on filedocumented in this encounter Care Teams Qa Automation Developer Relationship Specialty Start Date End Date Clinician, Not Found, [place] [address] PCP - General 06/23/20 documented as of this encounter
--- OUTSIDE RECORDS SUMMARY | 2024-06-26 03:19 | XMS_ITS | Clinical Summary ---
Author Organization [facility] Address [address] [address] Care Team Providers Care Industrial Relations Commissioner Name Role Phone Clinician, Not Found MD Primary Care Provider Un available Source Comments You are receiving this document as you are listed as the primary care provider,follow-up provider, or the patient has been referred to you for consultation.This is in compliance with the Medicare and[facility] EHR Incentive Program,which states Providers who transition their patient to another setting of careor provider of care or refers their patient to another provider of care shouldprovide summary care record for each transition of care or referral. [employer] Allergies No known active allergies Medications Medication [...] 020 Overview (06/15/2020): By Dr. Murrieta at [facility]. Ascending aorta dilation 06/15/2020 Overview [...] this topic Medical Devices Implanted Type Area Mechanical Striper Device Identifier Shelf Expiration Date Model / Serial / Lot Mohan Bone Biomet R 1x40 - [id number] Implanted:Qty: 2 on 06/15/2020 by Sanjay Murrieta MD at [facility] DEVICE Right: [employer] 07/29/2024 [id number] / / [id number] Patella All Poly Ply 41mm - [id number] Implanted:Qty: 1 on 06/15/2020 by Sanjay Murrieta MD at [facility] DEVICE Right: [employer] 06/28/2026 [id number] / / [id number] Comp Str Hyb St 14x+30 - [id number] Implanted:Qty: 1 on 06/15/2020 by Sanjay Murrieta MD at [facility] DEVICE Right: [employer] 11/26/2029 [id number] / / [id number] Stem Tib 5deg Szh Rt - [id number] Implanted:Qty: 1 on 06/15/2020 by Sanjay Murrieta MD at [facility] DEVICE Right: [employer] 01/26/2029 [id number] / / [id number] Comp Fem Ps Ccr Ps Std Sz12 Rt - [id number] Implanted:Qty: 1 on 06/15/2020 by Sanjay Murrieta MD at [facility] DEVICE Right: [employer] 06/28/2029 [id number] / / [id number] Asf Ps Ve 10mm 1012 Gh Rt - [id number] Implanted:Qty: 1 on 06/15/2020 by Sanjay Murrieta MD at [facility] DEVICE Right: [employer] 04/28/2021 [id number] / / [id number] Advance Directives * Full Code (Latest Code Status on File) Date Activated Date Inactivated Comments 06/15/2020 2:08 PM 06/17/2020 2:45 PM Care Teams Industrial Relations Commissioner Relationship Specialty Start Date End Date Clinician, Not Found, [place] [address] PCP - General 06/23/20
== END 2024-06-23 16:29 | disposition home or self-care (01) ==
LOC: AMB 06-26 03:17
PROVIDERS: PCP Family Medicine; Visit Provider Emergency Medicine
DX: A41.9 Sepsis, unspecified organism (principal); I95.9 Hypotension, unspecified; L03.90 Cellulitis, unspecified
CPT/HCPCS: A0425; A0427

== ENCOUNTER 2024-06-30 12:50 | Outpatient (CLI) | payer MEDICARE, BC, SELFPAY ==
--- OUTSIDE RECORDS SUMMARY | 2024-06-30 12:53 | XMS_ITS | Clinical Summary ---
Author Organization [facility] Address [address] [address] Care Team Providers Care Quenching Car Operator Name Role Phone Clinician, Not Found MD Primary Care Provider Un available Source Comments You are receiving this document as you are listed as the primary care provider,follow-up provider, or the patient has been referred to you for consultation.This is in compliance with the Medicare and[facility] EHR Incentive Program,which states Providers who transition their patient to another setting of careor provider of care or refers their patient to another provider of care shouldprovide summary care record for each transition of care or referral. [employer] Allergies No known active allergies Medications Medication [...] 020 Overview (06/15/2020): By Dr. Murrieta at [facility]. Ascending aorta dilation 06/15/2020 Overview (06/15/2020): [...] on patient's age to complete this topic Infant RSV Aged Out No longer eligi ble based on patient's age to complete this topic MCV4 Aged Out No longer eligi ble based on patient's age to complete this topic Medical Devices Implanted Type Area Swiss Type Screw Machine Operator Device Identifier Shelf Expiration Date Model / Serial / Lot Mohan Bone Biomet R 1x40 - [id number] Implanted:Qty: 2 on 06/15/2020 by Sanjay Murrieta MD at [facility] DEVICE Right: [employer] 07/29/2024 [id number] / / [id number] Patella All Poly Ply 41mm - [id number] Implanted:Qty: 1 on 06/15/2020 by Sanjay Murrieta MD at [facility] DEVICE Right: [employer] 06/28/2026 [id number] / / [id number] Comp Str Hyb St 14x+30 - [id number] Implanted:Qty: 1 on 06/15/2020 by Sanjay Murrieta MD at [facility] DEVICE Right: [employer] 11/26/2029 [id number] / / [id number] Stem Tib 5deg Szh Rt - [id number] Implanted:Qty: 1 on 06/15/2020 by Sanjay Murrieta MD at [facility] DEVICE Right: [employer] 01/26/2029 [id number] / / [id number] Comp Fem Ps Ccr Ps Std Sz12 Rt - [id number] Implanted:Qty: 1 on 06/15/2020 by Sanjay Murrieta MD at [facility] DEVICE Right: [employer] 06/28/2029 [id number] / / [id number] Asf Ps Ve 10mm 1012 Gh Rt - [id number] Implanted:Qty: 1 on 06/15/2020 by Sanjay Murrieta MD at [facility] DEVICE Right: [employer] 04/28/2021 [id number] / / [id number] Advance Directives * Full Code (Latest Code Status on File) Date Activated Date Inactivated Comments 06/15/2020 2:08 PM 06/17/2020 2:45 PM Care Teams Quenching Car Operator Relationship Specialty Start Date End Date Clinician, Not Found, [facility] [place] [address] PCP - General 06/23/20
--- OUTSIDE RECORDS SUMMARY | 2024-06-30 12:53 | XMS_ITS | Encounter Summary ---
Author Organization [facility] Address [address], [place] [address] Care Team Providers Care Baker Doughnut Name Role Phone Clinician, Not Found MD Primary Care Provider Un available Reason for Visit * Reason Comments Questions Encounter Details Date Type Department Care Team (Late st Contact Info) Description 12/30/2023 Telephone [facility] [address] [place], [place] [phone] Zakia Carrillo, SUPPORT ASSISTANT, UTILITY SPRAY OPERATOR [address] [place] [address] Questions Social History Tobacco Use Types Packs/Day [...] [place] * Erendira Prince - 12/30/2023 3:02 PM [...] can we send you a message in [employer]? No [Web Development Director/Actuary: Relay to patient; We make every effort to get back to you sameday, however it may take 1-2 business days depending on the nature of the communication.] documented in this encounter Plan of Treatment Not on file documented as of this encounter Visit Diagnoses Not on filedocumented in this encounter Care Teams Baker Doughnut Relationship Specialty Start Date End Date Clinician, Not Found, [place] [address] PCP - General 06/23/20 documented as of this encounter
--- OUTSIDE RECORDS SUMMARY | 2024-06-30 12:53 | XMS_ITS | Clinical Summary ---
Author Organization [facility] Address [place], [place] [address] Care Team Providers Care Manager Payer Name Role Phone Aba Boo MD Primary Care Provider + Destin Johnston MD Unavailable [phone] Nurses, Advanced Heart Failure Unavailable + Allergies [...] type, unspecified whether angina present, unspecified whether [place] or transplanted heart Take 1 Tablet (10 mg) by mouth at bedtime. 90 Tablet 3 04/13/20 24 Active cephalexin (KEFLEX) 500 mg capsuleIndications :skin and skin structure infection Take 1 Capsule (500 mg) by mouth four times daily. 22 Capsule 06/25/20 24 Active torsemide (DEMADEX) 20 mg tabletIndications: Primary cardiomyopathy (HC) Take 2 Tablets (40 mg) by mouth two times daily. 360 Tablet 2 06/28/20 24 Active amiodarone (CORDARONE) 200 mg tabletIndications: Atrial fibrillation, persistent (HC) Take 1 Tablet (200 mg) by mouth once daily. 06/29/20 24 Active acyclovir (ZOVIRAX) 400 mg tabletIndications: Herpes simplex Take 1 Tablet (400 mg) by mouth three times daily for 7 days. 21 Tablet 06/29/20 24 Active metOLazone (ZAROXOLYN) 5 mg tabletIndications: [...] Saturdays Discontinued(*P atient states no longer taking) amiodarone (CORDARONE) 200 mg tabletIndications: Atrial fibrillation, persistent (HC) Starting on 05/21/2024: Reduce to Amiodarone 1 tablet (200 mg) by mouth twice daily, THEN 06/18: Reduce to 1 tablet (200 mg) by mouth once daily. 90 Tablet 4 05/21/20 24 Discontinued(Ot her - add note to specify (E-cancel not sent)) torsemide (DEMADEX) 20 mg tabletIndications: Primary cardiomyopathy [...] pen Inject 10 mg subcutaneous once weekly. 024 Discontinued(*I P Discontinued) cephalexin (KEFLEX) 500 mg capsuleIndications :skin and skin structure infection Take 1 Capsule (500 mg) by mouth four times daily for 7 days. 22 Capsule 06/23/20 24 024 Discontinued torsemide (DEMADEX) 20 mg tabletIndications: Primary cardiomyopathy (HC) Take 1 Tablet (20 mg) by mouth two times daily. Take 3 tablets (60mg) in the morning and 2 tablets (40 mg) in the afternoon 06/25/20 24 024 Discontinued(*M edication adjustment) Active Problems [...] and secondary concerned persons: Spouse Alexus Centeno [phone] Daughter Zuri [phone] Hypothyroidism 09/10/2011 Atrial fibrillation Overview (12/07/2013): - [...] Encounters Date Type Department Care Team Description 06/30/2024 Orders Only [facility] [address] [place] [address] Rosalie Senior NP 1 scan: (1-Ord) BMP 06/2906/29/2024 2:20 PM CDT Office Visit [facility] [address] [place] [address] Rosalie Senior NP CV Electrophysiology Est (10 Week Follow Up, Paroxysmal atrial fibrillation/pcp: Aba Boo MD/) 06/29/2024 Travel 06/29/2024 Telephone [facility] [address] [facility] [address] [place] [phone] Stephen Mederos RN 06/29/2024 Telephone [facility] [address] [facility] [address] [place] [phone] Rosalie Senior NP 06/28/2024 Telephone [facility] [address] [phone] Destin Johnston MD 06/28/2024 Telephone [facility] [address] [phone] Destin Johnston MD Edema (Edema & verify labs for upcoming appt in ) 06/24/2024 Travel 06/23/2024 5:53 PM CDT - 06/25/2024 4:55 PM CDT Hospital Encounter [facility] [address] [place] [address] Aba Lynn DO Williams, David F, MD Melamed, Roman, MD Residents, Icu Cellulitis of left lower extremity (Primary Dx); Primary cardiomyopathy (HC); Acute on chronic HFrEF (heart failure with reduced ejection fraction) (HC); MEGAN (acute kidney injury) (HC) Discharge Disposition: Home Self Care 2024 Telephone [facility] [place] [facility] [address] [facility] [address] [place] [phone] Destin Johnston MD 06/15/2024 Telephone [facility] [address] [place] [address] Sanjay Lazaro MD Questions 06/10/2024 8:00 AM CDT Office Visit [facility] [id number] [place] [address] [address] [place] [address] Destni Johnston MD Follow Up (F/U PER ESTRELLA [...] should be on it again.) 06/10/2024 Telephone [facility] [address] [facility] [address] [place] [phone] Riaz Peterson MD Questions 06/09/2024 11:30 AM CDT Orders Only [facility] [address] [place] [phone] Lab, [facility] Lab 06/09/2024 Travel 06/08/2024 Orders Only [facility] [place] [address] [facility] [address] [place] [phone] Sanjay Lazaro MD <No scans attached> 06/08/2024 Telephone [facility] [place] [address] [facility] [address] [place] [phone] Jono Peters MD Appointment 06/02/2024 9:45 AM CDT Office Visit [facility] [address] [place] [address] Sanjay Lazaro MD Hand Pain/problem (Right wrist numbness/tingling) 06/02/2024 Orders Only [facility] [place] [address] [place] [phone] Sanjay Lazaro MD <No scans attached> 06/02/2024 Travel 05/27/2024 9:04 AM CDT Anesthesia Event [facility] [address] [place] [address] Erendira Velez MD Riley, Benjamin William, JAREN 05/27/2024 7:15 AM CDT - 05/27/2024 10:24 AM CDT Hospital Encounter [facility] [address] [place] [address] Seamus Cole MD Atrial fibrillation, persistent (HC) Discharge Disposition: Home Self Care 05/27/2024 Travel 05/24/2024 8:30 AM CDT Office Visit [address] [place] [address] Iva Johnston CNS Follow Up (CHF FOLLOWUP /POST ABLATION DONE ON 05/11... Post modified diuretic with CMP post ablation/LABS PRIOR IN [place]/I42.9 (ICD-10-CM) - Primary cardiomyopathy (HC)/I50.23 (ICD-10-CM) - Acute on chronic HFrEF (heart failure with reduced ejection fraction) (HC) /PT states feeling ok./Went into afib a couple days later going back on ) 05/24/2024 Telephone [facility] [place] [address] [facility] [address] [place] [phone] Riaz Peterson MD Error-please disregard 05/24/2024 Travel 05/20/2024 12:00 PM CDT Orders Only [facility] 100 [place] [address] Lab, [facility] Lab 05/20/2024 Telephone [facility] [address] [place] [address] Seamus Cole MD Atrial Fibrillation 05/20/2024 Travel 05/19/2024 Telephone [facility] [address] [place] [phone] Destin Johnston MD Medication Management 05/19/2024 Telephone [facility] [address] [place] [phone] Marquis Santana MD Medication Management 05/19/2024 Telephone [facility] [address] [place] [phone] Susana Joyner I, RN Device Check 05/19/2024 Telephone [facility] [address] [phone] Marquis Santana MD Device Check 05/19/2024 Telephone [facility] [address] [place] [phone] Erendira Sotomayor, VASCULAR TECHNICIAN Weight 05/14/2024 9:37 AM CDT Anesthesia Event [facility] [address] [place] [address] Aba Valerio MD 05/14/2024 7:10 AM CDT - 05/14/2024 11:40 AM CDT Hospital Encounter [facility] [address] [place] [address] Seamus Cole MD Atrial fibrillation, persistent (HC) Discharge Disposition: Home Self Care 05/14/2024 Travel 05/13/2024 9:20 AM CDT Orders Only [facility] [address] [facility] [address] [place] [address] Lab 05/13/2024 Telephone [facility] [address] [phone] Martha Warner RN 05/13/2024 Telephone [facility] [address] [phone] Marquis Santana MD Results (LFT and TSH results on Amiodarone) 05/12/2024 Travel 05/11/2024 7:46 AM CDT Anesthesia Event [facility] [address] [place] [address] Alan Yao DO 05/11/2024 5:41 AM CDT - 05/11/2024 5:50 PM CDT Hospital Encounter [facility] [address] [address] Marquis Santana MD Kroll, Sharon Marie, CRNA Primary cardiomyopathy (HC) (Primary Dx); Acute on chronic HFrEF (heart failure with reduced ejection fraction) (HC) Discharge Disposition: Home Self Care 05/11/2024 Travel 05/04/2024 Telephone [facility] [place] [facility] [address] [phone] Marquis Santana MD Medication Management 05/04/2024 Telephone [facility] [address] [address] Guadalupe Rosado RN Appointment 05/03/2024 Telephone [facility] [address] [phone] Marquis Santana MD Concerns (AFIB) 04/30/2024 12:03 PM CDT Anesthesia Event [facility] [address] [place] [address] Aba Valerio MD Wilson, Timothy Eric, CRNA 04/30/2024 10:08 AM CDT - 04/30/2024 3:03 PM CDT Hospital Encounter [facility] [address] [place] [address] Marquis Santana MD Discharge Disposition: Home Self Care 04/30/2024 Travel 04/27/2024 10:15 AM CDT Ancillary Procedure [address] [phone] 04/27/2024 9:45 AM CDT Office Visit [address] [phone] Riza Peterson MD Recheck (EP, non-displaced left femoral neck fracture DOI:02/11/2024, x-rays) 04/27/2024 Travel 04/25/[address] [place] [address] Dennis Barahona, KELSEA 04/22/2024 1:20 PM CDT Orders Only [facility] [address] [place] [address] Lab, [facility] Lab 04/22/2024 Travel 04/20/2024 Telephone [facility] [address] [facility] [address] [place] [phone] Marquis Santana MD Atrial Fibrillation 04/19/2024 9:05 AM CDT Anesthesia Event [facility] [address] [place] [address] Marco Aguiar MD Wilson, Timothy Eric, CRNA 04/19/2024 7:18 AM CDT - 04/19/2024 10:53 AM CDT Hospital Encounter [facility] [address] [place] [address] David Ugarte, Chi Cuadra MD Deviley, Sarah Jean, CRNA Atrial fibrillation, unspecified type (HC) (Primary Dx) Discharge Disposition: Home Self Care 04/19/2024 Travel 04/16/2024 7:06 AM CDT - 04/16/2024 10:07 AM CDT Hospital Encounter [facility] [address] [place] [address] Marquis Santana MD Wilson, Timothy Eric, CRNA Obesity, unspecified classification, unspecified obesity type, unspecified whether serious comorbidity present (Primary Dx); Chronic systolic heart failure (HC) Discharge Disposition: Home Self Care 04/16/2024 7:05 AM CDT Anesthesia Event [facility] [address] [address] Placido Chowdhury CRNA 04/16/2024 Travel 04/15/2024 Orders Only [facility] Scanner 1 scan: (1-Ord) SHAHAB 04/15/2024 Telephone [facility] [address] [phone] Lianna Dominguez RN Device Check (AF alert) 04/14/2024 Telephone [facility] [address] [phone] Destin Johnston MD 04/13/2024 4:20 PM CDT Office Visit [facility] [address] [place] [address] Rosalie Senior NP Heart Problem (Paroxysmal atrial fibrillation); Primary MD (Aba Boo MD/) 04/13/2024 8:00 AM CDT Office Visit [address] [place] [address] Destin Johnston MD CV Heart Failure Est (STAT - IN PERSON F/U VISIT. LABS PRIOR @ [facility] /Acute on chronic HFrEF (heart failure with reduced ejection fraction) //pt states he is in a-fib. He got converted on and went to primary yesterday to confirm he is in A-fib still.//) 04/13/2024 Travel 04/10/2024 Telephone [facility] [address] [phone] Marquis Banda RN Device Check (Patient thinks he back in AF) 04/08/2024 2:40 PM CDT Anesthesia Event [facility] [address] [place] [address] Zion Leigh MD 04/08/2024 12:19 PM CDT - 04/08/2024 3:58 PM CDT Hospital Encounter [facility] [address] [place] [address] Max, Marquis TraMD Trenton ratliff Timothy Eric, CRNA Kushins, Stephen Isaac, MD Persistent atrial fibrillation (HC) (Primary Dx) Discharge Disposition: Home Self Care 04/08/2024 Travel 04/07/2024 Telephone [facility] [address] [phone] Marquis Santana MD Schedule Cardioversion 04/05/2024 10:30 AM CDT Office Visit [address] [phone] Kathleen Boyer PA Follow Up (follow up) 04/05/2024 Travel 04/02/2024 Telephone [facility] [address] [phone] Susana Joyner I, RN Device Check 04/02/2024 Telephone [facility] [address] [phone] Destin Johnston MD Concerns (Defib beeping ) 03/30/2024 9:55 AM CDT Ancillary Procedure [address] [phone] 03/30/2024 9:50 AM CDT Ancillary Procedure [address] [address] 03/30/2024 9:30 AM CDT Office Visit [address] [phone] Riaz Peterson MD Hip Pain/problem (left hip pain); Chest Injury (left side rib pain) 03/30/2024 Travel from Last 3 Months Immunizations Name [...] Sign Reading Time Taken Comments Blood Pressure 126/64 06/29/2024 2:08 PM CDT Pulse 78 06/29/2024 2:08 PM CDT Temperature 36.8 ??C (98.3 ??F) 06/25/2024 12:00 PM C DT Respiratory Rate 18 06/25/2024 12:00 PM CDT Oxygen Saturation 95% 06/29/2024 2:08 PM CDT Inhaled Oxygen Concentration - - Weight 133.4 kg (294 lb) 06/29/2024 2:08 PM CDT Height 200.7 cm (6' 7) 06/29/2024 2:08 PM CDT Body Mass Index 33.12 06/29/2024 2:08 PM CDT Plan of Treatment Upcoming Encounters Date Type Department Care Team (Late st Contact Info) Description 07/07/2024 11:30 AM CDT Office Visit [facility] [address] [place] [address] Chai Espinosa DPM [address] [place] [address] 07/09/2024 10:40 AM CDT Hospital Encounter [facility] [address] [place] [address] Sanjay Lazaro MD [address] [place] [address] 07/09/2024 10:40 AM CDT - 07/09/2024 11:59 AM CDT Surgery [facility] [address] [place] [address] Sanjay Lazaro MD [address] [place], [place] [address] RIGHT OPEN CARPAL TUNNEL RELEASE. 07/12/2024 Cardiac Device Check [facility] [phone] 07/13/2024 9:00 AM CDT Office Visit [facility] [address] [place] [address] [address] [place] [address] Iva Johnston, [facility] [address] [facility] [address] [place] [address] 07/21/2024 11:00 AM CDT Office Visit [facility] [address] [place], [place] [phone] Janeth Resendez PA [address] [place] [address] 10/20/2024 Cardiac Device Check [facility] [phone] 10/25/2024 1:00 PM PHOTO EQUIPMENT TECHNICIAN Telemedicine [facility] [address] [place] [phone] Marquis Santana MD [address] [facility] [address] [place] [address] Scheduled Procedures Name Priority Associated Diagnoses Date/Ti [...] wt on same day) for age 18+ 06/29/2025 06/29/2024, 06/10/2024, 05/24/2024, Additional history exists AAA screening age 65-74 Completed 03/15/2024 Medical Devices Implanted Type Area Civil Defense Director Device Identifier Shelf Expiration Date Model / Serial / Lot Graft Valsalva 34mm - [id number] Implanted:Qty: 1 on 09/09/2011 at [facility] [employer] [id number] / / Procedures Procedure Name Priority Date/Time Associated Diagnosis Comments EKG 12 LEAD Routine 06/29/2024 Atrial fibrillation, persistent (HC) BASIC METABOLIC PANEL Routine 06/29/2024 Atrial fibrillation, persistent (HC) Therapeutic drug monitoring SCAN-CARDIAC STRIP 06/25/2024 3: 05 PM CDT [...] Health Maintenance Results * EKG 12 LEAD (06/29/2024) Only the most recent of15 resultswithin the time period is included. Rosalie Senior VASCULAR TECHNICIAN EKG ORD * BASIC METABOLIC PANEL (06/29/2024) Only the most recent of9 resultswithin the time period is included. SODIUM POTASSIUM CHLORIDE CO2,TOTAL ANION GAP GLUCOSE BUN CREATININE BUN/CREAT RATIO CALCIUM Blood BLOOD SPECIMEN / Unknown 06/29/2024 Rosalie Senior VASCULAR TECHNICIAN CHEMISTRY * SCAN-CARDIAC STRIP (06/25/2024 3:05 PM CDT) Scanner OTHER * SCAN-CARDIAC STRIP (06/25/2024 3:03 PM CDT) Scanner OTHER * (ABNORMAL) GLUCOSE METER (06/25/2024 12:27 PM CDT) Only the most recent of6 resultswithin the time period is included. GLUCOSE METER 131(H) 65 - 100 mg/dL 06/25/2024 12:[address] [facility] Blood BLOOD SPECIMEN / Unknown 06/25/2024 12:27 PM CDT 06/25/2024 12:33 PM CDT Marty Vásquez MD CHEMISTRY [facility] [address] [address], [place] * ECHO TTE LIMITED W CONTRAST W COLOR W DOPPLER (06/25/2024 12:13 PM CDT) AORTIC VALVE MEAN PG 7 mmHg EJECTION FRACTION 54 % PEAK TR VELOCITY 3.1 m/s LVEDD 6.1 cm Anatomical Region Laterality Modality Ultrasound 06/25/2024 10:0 8 AM CDT Narrative 06/25/2024 12:56 PM CDT ECHOCARDIOGRAM RAIN CENTENO ? Accession#: ?? [id number] : ?1950 74 years Study Date: ?? 06/25/2024 10:08:58 AM Gender: M ?BP: ? 106/55 mmHg Height: 200.00 cm ?BSA: ?2.66 m? ? ? Weight: 131.00 kg ?Tech: ? SS ? Referring MD: YOBANI SHAH Site: ? [facility] Reading Location: [facility] Patient Location: Inpatient. [...] documentation: 2.0 ml diluted Definity, lot #[id number], [facility]# [id number] was administered peripherally to enhance visualization of all left ventricular segments. . This study was interpreted by an [facility] accredited facility. ??Final ?? Procedure Note Ramon Al MD - 06/25/2024 ECHOCARDIOGRAM RAIN CENTENO : 1950 74 years Study Date: 06/25/2024 10:08:58 AM Gender: M BP: 106/55 mmHg Height: 200.00 cm BSA: 2.66 m? ? ? Weight: 131.00 kg Tech: SS Referring MD: YOBANI HERNANDEZ Site: [facility] Patient Location: Inpatient. Procedure: Color Doppler, Limited [...] documentation: 2.0 ml diluted Definity, lot #[id number], [facility]#[id number] was administered peripherally to enhance visualization of allleft ventricular segments. . This study was interpreted by an [facility] accredited facility. Final Yobani Shah MD ECH O ORD * SCAN-CARDIAC STRIP (06/25/2024 7:56 AM CDT) Scanner OTHER * (ABNORMAL) CBC W PLT NO DIFF (06/25/2024 5:30 AM CDT) Only the most recent of2 resultswithin the time period is included. WHITE BLOOD COUNT 9.0 4.5 - 11.0 thou/cu mm 06/25/2024 5:50 AM CDT [facility] RED BLOOD COUNT 3.89(L) 4.30 - 5.90 mil/cu mm 06/25/2024 5:50 AM CDT [facility] HEMOGLOBIN 11.3(L) 13.5 - 17.5 g/dL 06/25/2024 5:50 AM CDT [facility] HEMATOCRIT 36.4(L) 37.0 - 53.0 % 06/25/2024 5:50 AM CDT [facility] MCV 94 80 - 100 fL 06/25/2024 5:50 AM CDT [facility] MCH 29.0 26.0 - 34.0 pg 06/25/2024 5:50 AM CDT [facility] MCHC 31.0(L) 32.0 - 36.0 g/dL 06/25/2024 5:50 AM CDT [facility] RDW 18.4(H) 11.5 - 15.5 % 06/25/2024 5:50 AM CDT [facility] PLATELET COUNT 177 140 - 440 thou/cu mm 06/25/2024 5:50 AM CDT [facility] MPV 9.2 6.5 - 11.0 fL 06/25/2024 5:50 AM CDT [facility] NRBC 0.0 % 06/25/2024 5:50 AM CDT [facility] ABS NRBC 0.0 thou /cu mm 06/25/2024 5:50 AM CDT [facility] Blood BLOOD SPECIMEN / Unknown Butterfly / Unknown 06/25/2024 5:30 AM CDT 06/25/2024 5:43 AM CDT Marty Vásquez MD HEMATOLOGY Performing Organization Address City/State/[facility] de Phone Number [facility] [address] [place] [address], * (ABNORMAL) PHOSPHORUS (06/25/2024 5:30 AM CDT) Only the most recent of3 resultswithin the time period is included. PHOSPHORUS 2.2(L) 2.5 - 4.5 mg/dL 06/25/2024 6:[address] [facility] Blood BLOOD SPECIMEN / Unknown Butterfly / Unknown 06/25/2024 5:30 AM CDT 06/25/2024 5:43 AM CDT Aba Lynn DO CHEMISTRY Performing Organization Address [facility] de Phone Number [facility] [address] [place] [address], * MAGNESIUM (06/25/2024 5:30 AM CDT) Only the most recent of4 resultswithin the time period is included. MAGNESIUM 2.4 1.6 - 2.4 mg/dL 06/25/2024 6:22 AM CDT [facility] Blood BLOOD SPECIMEN / Unknown Butterfly / Unknown 06/25/2024 5:30 AM CDT 06/25/2024 5:43 AM CDT Aba Lynn DO CHEMISTRY Performing Organization Address [facility] Co de Phone Number [facility] [address] [place] [address], [place] * CALCIUM IONIZED HOSPITAL DRAW ONLY (06/25/2024 2:49 AM CDT) Only the most recent of3 resultswithin the time period is included. CALCIUM,IONIZE D 1.17 1.15 - 1.27 mmol/L 06/25/2024 3:[address] [facility] Blood BLOOD SPECIMEN / Unknown Butterfly / Unknown 06/25/2024 2:49 AM CDT 06/25/2024 2:56 AM CDT Marty Vásquez MD CHEMISTRY Performing Organization Address City/[facility]/ZIP Co de Phone Number [facility] [address] [place] [address], * (ABNORMAL) HEMOGLOBIN (06/24/2024 10:29 PM CDT) Pathologist [facility] HEMOGLOBIN 11.3(L) 13.5 - 17.5 g/dL 06/24/2024 10:[address] [facility] MCV 94 80 - 100 fL 06/24/2024 10:[address] [facility] Blood BLOOD SPECIMEN / Unknown Butterfly / Unknown 06/24/2024 10:29 PM CDT 06/24/2024 10:38 PM CDT Alvaro NARVAEZ HEMATOLOGY Performing Organization Address [facility] Co de Phone Number [facility] [address] [place] [address], * SCAN CORRESP-EKG RESULTS (06/24/2024 11:58 AM CDT) Narrative 06/24/2024 11:58 AM CDT Ordered by an unspecified provider. Other Clinical Staff OTHER * SCAN-CARDIAC STRIP (06/24/2024 7:22 AM CDT) Scanner OTHER * POTASSIUM (06/24/2024 6:19 AM CDT) POTASSIUM 4.8 3.5 - 5.1 mmol/L 06/24/2024 7:12 AM CDT [facility] Blood BLOOD SPECIMEN / Unknown Butterfly / Unknown 06/24/2024 6:19 AM CDT 06/24/2024 6:35 AM CDT Aba Lynn DO CHEMISTRY Performing Organization Address [facility]/ZIP Co de Phone Number [facility] [address] [place] [address], * (ABNORMAL) CBC WITH AUTO DIFFERENTIAL (06/24/2024 4:39 AM [facility]) Only the most recent of2 resultswithin the time period is included. WHITE BLOOD COUNT 10.4 4.5 - 11.0 thou/cu mm 06/24/2024 5:01 AM [facility] RED BLOOD COUNT 4.10(L) 4.30 - 5.90 mil/cu mm 06/24/2024 5:01 AM [facility] HEMOGLOBIN 11.5(L) 13.5 - 17.5 g/dL 06/24/2024 5:01 AM [facility] HEMATOCRIT 38.1 37.0 - 53.0 % 06/24/2024 5:01 AM [facility] MCV 93 80 - 100 fL 06/24/2024 5:01 AM [facility] MCH 28.0 26.0 - 34.0 pg 06/24/2024 5:01 AM [facility] MCHC 30.2(L) 32.0 - 36.0 g/dL 06/24/2024 5:01 AM [facility] RDW 18.5(H) 11.5 - 15.5 % 06/24/2024 5:01 AM [facility] PLATELET COUNT 216 140 - 440 thou/cu mm 06/24/2024 5:01 AM [facility] MPV 10.4 6.5 - 11.0 fL 06/24/2024 5:01 AM [facility] NRBC 0.0 % 06/24/2024 5:01 AM [facility] ABS NRBC 0.0 thou /cu mm 06/24/2024 5:01 AM [facility] % NEUT 55.9 % 06/24/2024 5:01 AM [facility] % LYMPH 26.7 % 06/24/2024 5:01 AM [facility] % MONO 13.6 % 06/24/2024 5:01 AM CDT [facility] % EOS 2.7 % 06/24/2024 5:01 AM CDT [facility] % BASO 0.5 % 06/24/2024 5:01 AM CDT [facility] % IMMATURE GRAN (METAS,MYELOS,ME OS) 0.6 % 06/24/2024 5:01 AM CDT [facility] ABSOLUTE NEUTROPHILS 5.8 1.7 - 7.0 thou/cu mm 06/24/2024 5:01 AM CDT [facility] ABSOLUTE LYMPHOCYTES 2.8 0.9 - 2.9 thou/cu mm 06/24/2024 5:01 AM CDT [facility] ABSOLUTE MONOCYTES 1.4(H) <0.9 thou/cu mm 06/24/2024 5:01 AM CDT [facility] ABSOLUTE EOSINOPHILS 0.3 <0.5 thou/cu mm 06/24/2024 5:01 AM CDT [facility] ABSOLUTE BASOPHILS 0.1 <0.3 thou/cu mm 06/24/2024 5:01 AM CDT [facility] ABSOLUTE IMMATURE GRANULOCYTES(MET ,MYELOS,PROS) 0.1 <0.3 thou/cu mm 06/24/2024 5:01 AM [facility]T [facility] Blood BLOOD SPECIMEN / Unknown IV Start / Unknown 06/24/2024 4:39 AM CDT 06/24/2024 4:56 AM CDT Aba Lynn DO HEMATOLOGY [facility] [address] [place] [address], * (ABNORMAL) HEPATIC FUNCTION PANEL (06/24/2024 4:39 AM CDT) Only the most recent of2 resultswithin the time period is included. ALBUMIN 3.9(L) 4.0 - 4.9 g/dL 06/24/2024 5:56 AM CDT [facility] PROTEIN,TOTAL 6.4 6.0 - 8.0 g/dL 06/24/2024 5:56 AM CDT [facility] BILIRUBIN,TOTAL 0.4 0.0 - 1.2 mg/dL 06/24/2024 5:56 AM CDT [facility] BILIRUBIN,DIRECT 06/24/20 5:56 AM CDT [facility] Comment:Canceled- Specimen H emolyzed, Disposition Per Policy ALK PHOSPHATASE 117 40 - 129 IU/L 06/24/2024 5:56 AM CDT [facility] ALT (SGPT) 06/24/2024 5:56 AM CDT [facility] Comment:Canceled- Specimen H emolyzed, Disposition Per Policy AST (SGOT) 06/24/2024 5:56 AM CDT [facility] Comment:Canceled- Specimen H emolyzed, Disposition Per Policy Blood BLOOD SPECIMEN / Unknown IV Start / Unknown 06/24/2024 4:39 AM CDT 06/24/2024 4:55 AM CDT Aba Lynn DO CHEMISTRY [facility] [address] [place] [address], * MRSA/SA PCR (06/24/2024 2:43 AM CDT) MRSA DNA PCR Negative Negative 06/24/2024 4:04 AM CDT [facility] STAPHYLOCOCCUS AUREUS PCR Negative Negative 06/24/2024 4:04 AM CDT [facility] Other SPECIMEN FROM INTERNAL NOSE / Unknown Non-Blood / Unknown 06/24/2024 2:43 AM CDT 06/24/2024 2:53 AM CDT Narrative [facility] - 06/24/2024 4:04 AM CDT Test result does not preclude MRSA or SA nasal colonization. Aba Lynn DO MICROBIOLOGY Performing Organization Address [facility] Co de Phone Number [facility] [address] * SCAN-CARDIAC STRIP (06/24/2024 1:24 AM CDT) Scanner OTHER * VANCOMYCIN (06/23/2024 9:36 PM CDT) VANCOMYCIN 15.9 ug/mL 06/23/2024 10:17 PM CDT [facility] [employer] [facility] Comment:No Reference Range D efined. DATE OF LAST DOSE,RANDOM Not Given 06/23/2024 10:17 PM CDT [facility] [employer] [facility] TIME OF LAST DOSE,RANDOM Not Given 06/23/2024 10:17 PM CDT [facility] Blood BLOOD SPECIMEN / Unknown Venipuncture / Unknown 06/23/2024 9:36 PM CDT 06/23/2024 9:46 PM CDT Aba Lynn DO CHEMISTRY Performing Organization Address [facility] Co de Phone Number [facility] [employer] [facility] [address] * SCAN-CARDIAC STRIP (06/23/2024 7:40 PM CDT) Scanner OTHER * SCAN-CARDIAC STRIP (06/23/2024 7:40 PM CDT) Scanner OTHER * Blood Culture (06/23/2024 6:28 PM CDT) Only the most recent of2 resultswithin the time period is included. Pathologist [facility] CULTURE No Growth. 06/28/2024 9:[address] [facility] Blood BLOOD SPECIMEN / Unknown Venipuncture / Unknown 06/23/2024 6:28 PM CDT 06/23/2024 6:33 PM CDT Narrative [facility] - 06/28/2024 9:12 PM CDT Low volume blood culture received; possible false negative culture. Aba Lynn DO MICROBIOLOGY Performing Organization Address City/[facility] Co de Phone Number [facility] [address] [place] [address], * LACTATE VENOUS (06/23/2024 6:23 PM CDT) LACTATE,VENOUS 1.1 0.5 - 2.0 mmol/L 06/23/2024 6:[address] [facility] Blood BLOOD SPECIMEN / Unknown Venipuncture / Unknown 06/23/2024 6:23 PM CDT 06/23/2024 6:34 PM CDT Aba Lynn DO CHEMISTRY Performing Organization Address [facility] de Phone Number [facility] [address] [place] [address], * (ABNORMAL) Protime - INR (06/23/2024 6:23 PM CDT) INR 1.6(H) <1.3 06/23/2024 6:[address] [facility] PROTIME 17.5(H) 10.3 - 12.3 sec 06/23/2024 6:[address] [facility] Blood BLOOD SPECIMEN / Unknown Venipuncture / Unknown 06/23/2024 6:23 PM CDT 06/23/2024 6:34 PM CDT Narrative [facility] - 06/23/2024 6:46 PM CDT ?Therapeutic Range [...] if the patient is on UFH. Aba Araiza Shane DO HEMATOLOGY [facility] [address] [place] [address], [place] * XR CHEST 1 VIEW PORTABLE (06/23/2024 6:17 PM CDT) Anatomical Region Laterality Modality HEART, THORAX, CHEST Digital Rad iography 06/23/2024 7:44 PM CDT Impressions 06/23/2024 7:44 PM CDT Hypoinflated lungs. Streaky left basilar opacities, likely atelectasis. No large focal consolidation. Dictated by Anna Osorio MD @ Jun 23 2024 ??7:44PM (Electronically Signed) [email or web address] Narrative 06/23/2024 7:44 PM CDT For Patients: [...] @ Jun 23 2024 7:44PM (Electronically Signed) [email or web address] Aba Lynn DO GENERAL IMAGIN G * (ABNORMAL) PRO-BNP (06/09/2024 11:43 AM CDT) Only the most recent of4 resultswithin the time period is included. PRO-BNP 730(H) <125 pg/mL 06/09/2024 12:42 PM CDT [facility] Blood BLOOD SPECIMEN / Unknown Venipuncture / Unknown 06/09/2024 11:43 AM CDT 06/09/2024 11:45 AM CDT [facility] LABORATORY - 06/09/2024 12:42 PM CDT The [...] acute congestive heart failure. ? Iva Johnston SENIOR EDITOR SEND OUTS [facility] [address] [place], [place] [id number] * EP CARDIOVERSION (05/27/2024 9:10 AM CDT) Anatomical Region Laterality Modality X-Ray Angiograph y Narrative 05/27/2024 9:10 AM CDT Kathi Mcmanus PA ? 05/27/2024 ??9:11 AM [facility] Cardiac Electrophysiology Procedure Note DOS: 05/27/2024 Brief [...] 200 J shock was delivered with successful church AP-VS rhythm, VRs 70s. ?? Complications: ??No acute complications. ?? Plan: ?? Rain Centeno is now recovering from sedation and anticipate discharge home later today. Dr. Cuadra was the collaborating physician throughout the time services were performed. Kathi Mcmanus PA-C [facility] Cardiac Electrophysiology Services Seamus Cole MD CV IMAGING * POTASSIUM,ISTAT (05/27/2024 8:04 AM CDT) Only the most recent of6 resultswithin the time period is included. POTASSIUM, POCT 3.7 3.5 - 5.0 mmol/L 05/28/2024 8:30 AM CDT [facility] Blood BLOOD SPECIMEN / Unknown 05/27/2024 8:04 AM CDT 05/28/2024 8:30 AM CDT Seamus Cole MD CHEMISTRY Performing Organization Address [facility] Co de Phone Number [facility]EN[facility]AL LABORATORY [address] [place] [address], * SCAN-CARDIAC STRIP (05/27/2024 12:00 AM CDT) Narrative 05/27/2024 12:00 AM CDT Ordered by an unspecified provider. Other Clinical Staff OTHER * ALT (SGPT) (05/20/2024 11:09 AM CDT) Only the most recent of3 resultswithin the time period is included. ALT (SGPT) 28 10 - 50 IU/L 05/20/2024 2:49 PM CDT [facility] Blood BLOOD SPECIMEN / Unknown Venipuncture / Unknown 05/20/2024 11:09 AM CDT 05/20/2024 11:10 AM CDT Marquis Santana MD CHEMISTRY Performing Organization Address [facility] Co de Phone Number [facility] [address] [place] [address] * AST (SGOT) (05/20/2024 11:09 AM CDT) Only the most recent of3 resultswithin the time period is included. AST (SGOT) 42 10 - 50 IU/L 05/20/2024 2:39 PM CDT [facility] Blood BLOOD SPECIMEN / Unknown Venipuncture / Unknown 05/20/2024 11:09 AM CDT 05/20/2024 11:10 AM CDT Marquis Santana MD CHEMISTRY Performing Organization Address [facility] Co de Phone Number [facility] [address] [place] [address] * EP CARDIOVERSION (05/14/2024 9:46 AM CDT) Anatomical Region Laterality Modality X-Ray Angiograph y Narrative 05/14/2024 9:46 AM CDT Seamus Cole MD ? 05/17/2024 ??7:41 AM [facility] Cardiac Electrophysiology Procedure Note DOS: 05/14/2024 Brief [...] ??One 250 joules synchronized shock delivered with church of an AV paced rhythm. ?? Complications: ??No acute complications. ?? Plan: ??Mr. Centeno is now recovering from sedation and would anticipate discharge home later today. Dr. Cole was readily available to provide assistance and direction throughout the time services were performed Esther Macdonald NP ?? [facility] Cardiac Electrophysiology Services Seamus Cole MD Cardiac Arrhythmia Section [facility] Seamus Cole MD CV IMAGING * SCAN-CARDIAC STRIP (05/14/2024 12:00 AM CDT) Narrative 05/14/2024 12:00 AM CDT Ordered by an unspecified provider. Other Clinical Staff OTHER * SCAN-CARDIAC STRIP (05/11/2024 1:28 PM CDT) Scanner OTHER * (ABNORMAL) ACTIVATED CLOTTING TIME [id number] ACT (05/11/2024 11:38 AM CDT) Only the most recent of6 resultswithin the time period is included. ACTIVATED CLOTTING TIME, POCT 174(H) 74 - 125 sec 05/11/2024 11:52 AM CDT [facility] [employer] [facility] Blood BLOOD SPECIMEN / Unknown 05/11/2024 11:38 AM CDT 05/11/2024 11:52 AM CDT Marquis Santana MD [facility] [address] [place] [address], [place] * EP STUDY /ABLATION (05/11/2024 8:13 AM CDT) Anatomical Region Laterality Modality X-Ray Angiograph y, X-Ray Angiography 05/11/2024 8:13 AM CDT Narrative Transcriptions Marquis Santana MD - 05/11/2024 5:20 PM CDT [place] [facility] Electrophysiology Procedure Report Name: RAIN CENTENO Event Date: 05/11/2024 Excellian ID #: [id number] Date: 1950 Gender: Male Age: 73 KOTA #: [id number] Procedure Performed By: MARQUIS SANTANA [facility] Referring Physician: Summary / Conclusions 1. Complex [...] ? Same as Pre-operative diagnosis Consent & [place] Protocol [place] protocol was followed. TIME OUT conducted just [...] micropuncturetechnique, two sheaths were introduced (one 8 Bolivian and one 7 Bolivian)into the right femoral vein, one 9 Bolivian sheath was introduced into theleft femoral vein. [...] the ACT. [facility] for further monitoring. [...] Intervals Study State Underlying Rhythm Cycle Length ME PA AH HV QRS [place] QRSMorphology Baseline Atrial Fibrillation [phone] Post Ablation [...] See Anesthesia Note Total Flouro Time: 4.5 CLIENT SUPPORT REPRESENTATIVE Total Flouro Dose: 7 mGy Transseptal Mean LA Pressure: 20 mmHg Staff Name Role Marquis Santana Train Starter Mary Juarez RN Nurse Will Dumont CVT Monitor Elayne Cano CVT Scrub Mo Clancy EPClinton Director Of Campus Recreation Medications Ordered and Administered Start Time Stop Time Medication Dose Units Route Ordered By Given By 08:15 0.25% Bupivicaine 10 mL Subcut MD Marquis Melton MD 08:16 1% Lidocaine Hydrochloride 10 mL Subcut MD Marquis Melton MD 08:19 0.25% Bupivicaine 5 mL Subcut MD Marquis Melton MD 08:19 1% Lidocaine Hydrochloride 5 mL Subcut MD Marquis Melton MD 08:25 Heparin [id number] Units IV MD Mary Melton RN 08:37 [...] with status of Final Marquis Santana MD Train Starter [facility] [address] [place] [address] (p) [phone](f) Marquis Santana MD CV IMAGING * HCHG [...] Adequate, No estimate 05/11/2024 7:24 AM CDT [facility] Blood BLOOD SPECIMEN / Unknown Venipuncture / Unknown 05/11/2024 6:13 AM CDT 05/11/2024 6:22 AM CDT Marquis Santana MD HEMATOLOGY [facility] [address] [place] [address], * EXTRA TUBE GOLD/SST (05/11/2024 6:10 AM CDT) Blood BLOOD SPECIMEN / Unknown Extra Tube / Unknown 05/11/2024 6:10 AM CDT 05/11/2024 6:23 AM CDT Marquis Santana MD LABORATORY [facility]-CENTRAL LABORATORY [address] [place] [address], * SCAN-CARDIAC STRIP (05/11/2024 12:00 AM CDT) [...] DEVICE DATA [employer] Evera MRI XT DR [id number] SN: [id number] Implant Date 08/03/2019 LEAD DATA Atrial Lead: [employer]onic 5076 - 52 MRI SN: [id number] Implant Date 08/03/2019 RV Lead: [employer]onic 6935M - 62 MRI SN: [id number] Implant Date 08/03/2019 Tachy therapy hx: none 01/2023 Presence of a glassed feedthrough creates increased risk of unexpected HV arching within the header during therapy delivery. All HV pathways have been programmed B>AX. Hx: ??DCCV 04/30/24 DCCV ??04/19/24 Location of evaluation: [facility] P/R 18 post Cardioversion Reason for [...] past two weeks from his device: per database programmer reason for alert was that it was unable to send a transmission. ??Patient and family confirm that bedside monitor is plugged in. ??Provided family with [employer] Tech Support number in case this happens again. Follow up: as previously scheduled [facility] on 06/25/24 prior to seeing Rosemarie Senior NP in [place] Routine follow up: Every 3 - 4 months via [facility] remote with annual [place] or clinic with Dr. Santana each February. Susana Joyner, RN Nurse Clinician II [facility] Pacemaker/ICD Clinic [phone] Marquis Santana MD CARDIAC SERVICES ORD * EP CARDIOVERSION (04/30/2024 12:06 PM CDT) Anatomical Region Laterality Modality X-Ray Angiograph y Narrative 04/30/2024 12:06 PM CDT Nora Lara NP ? 04/30/2024 12:21 PM [facility] Cardiac Electrophysiology Procedure Note DOS: 04/30/2024 Brief [...] ??One 200 joules synchronized shock delivered with church of sinus rhythm. ?? Complications: ??No acute complications. ?? Plan: ?? Rain Centeno is now recovering from sedation and would anticipate discharge home later today. Dr. Juarez was readily available to provide assistance and direction throughout the time services were performed Nora Lara NP [facility] Cardiac Electrophysiology Marquis Santana MD CV IMAGING [...] performed and provider statements to me. Riaz Peterosn MD 04/27/2024 Narrative 04/30/2024 10:39 AM CDT For Patients: ??As a result of the Century Cures Act, medical imaging exams and procedure reports are released immediately into your electronic medical record. ??You may view this report before your referring provider. ?? If you have questions, please contact your health care provider. This radiology exam was performed at the [facility] in [place] and interpreted by Riaz Peterson MD. HISTORY: [...] - 4.20 uIU/mL 04/22/2024 2:25 PM CDT [facility] Blood BLOOD SPECIMEN / Unknown Venipuncture / Unknown 04/22/2024 1:29 PM CDT 04/22/2024 1:29 PM CDT Narrative [facility] - 04/22/2024 2:25 PM CDT In Adults, TSH values between 5.00 and 10.00 uIU/ml do not necessarily indicate the presence of Hypothyroidism. Correlation with clinical findings such as presence of goiter and/or Thyroperoxidase (TPO) Antibody may be helpful. For more information please refer to YU 2004; 291: 228-238. Marquis Santana MD CHEMISTRY [facility] [address] [place] [address] * SCAN-CARDIAC STRIP (04/19/2024 12:00 AM CDT) Narrative 04/19/2024 12:00 AM CDT Ordered by an unspecified provider. Other Clinical Staff OTHER * SCAN-ELECTROMYOGRAM EMG (04/15/2024 12:00 AM CDT) Scanner OTHER * EP CARDIOVERSION (04/08/2024 2:44 PM CDT) Anatomical Region Laterality Modality X-Ray Angiograph y Narrative 04/08/2024 2:44 PM CDT Seamus Cole MD ? 04/08/2024 ??4:11 PM [facility] Cardiac Electrophysiology Procedure Note DOS: 04/08/2024 Brief [...] time services were performed David Ugarte NP [facility] Cardiac Electrophysiology Seamus Cole MD Cardiac Arrhythmia Section [facility] Marquis Santana MD CV IMAGING * SCAN-CARDIAC [...] @ Mar ??2 2023 ??3:21PM (Electronically Signed) [email or web address] Narrative 03/30/2024 3:21 PM CDT For Patients: [...] @ Mar 30 2024 3:21PM (Electronically Signed) [email or web address] Riaz Peterson MD GENERAL IMAGING * [...] (ABNORMAL) LIPID PANEL (01/07/2018 4:35 PM CDT) [facility] [address] CHOLESTEROL,TOTAL 174 100 - 199 mg/dL 01/07/2018 6:28 PM CDT [facility] TRIGLYCERIDES 194(H) <150 mg/dL 01/07/2018 6:28 PM CDT [facility] HDL CHOLESTEROL 64 >40 mg/dL 8 6:28 PM CDT [facility] NON-HDL CHOLESTEROL 110 <145 mg/dl 01/07/2018 6:28 PM CDT [facility] CHOL/HDL RATIO 2.72 <4.50 01/07/2018 6:28 PM CDT [facility] LDL CHOLESTEROL 71 <=130 mg/dL 01/07/2018 6:28 PM CDT [facility] PROVIDER ORDERED STATUS RANDOM 01/07/2018 6:28 PM CDT [facility] Blood BLOOD SPECIMEN / Unknown Venipuncture / Unknown 01/07/2018 4:35 PM CDT 01/07/2018 4:39 PM CDT Aba Boo MD CHEMISTRY [facility] [address] [place] [address] from Last 3 Months or Most Recently [...] Code Status Discussion: Reviewed Preferences Care Teams Manager Payer Relationship Specialty Start Date End Date Aba Boo MD [address] [place] [address] PCP - General Family Practice 11/18/19 Destin Johnston MD [address] [place] [address] Cardiology - CHF Cardiovascular Disease 04/14/20 Nurses, Advanced Heart Failure [address] [place] [address] Advanced Heart Failure/Transplant Card 04/14/20
== END 2024-06-30 12:51 | disposition home or self-care (01) ==
LOC: WOUND 12:50
PROVIDERS: PCP Family Medicine; Visit Provider Surgery
DX: I87.332 Chronic venous hypertension (idiopathic) with ulcer and inflammation of left lower extremity (principal); I89.0 Lymphedema, not elsewhere classified; L97.822 Non-pressure chronic ulcer of other part of left lower leg with fat layer exposed
CPT/HCPCS: G0463

== ENCOUNTER 2024-07-05 15:18 | Outpatient (CLI) | payer MEDICARE, BC, SELFPAY ==
--- OUTSIDE RECORDS SUMMARY | 2024-07-05 15:20 | XMS_ITS | Encounter Summary ---
Author Organization [facility] Address [address], [place] [address] Care Team Providers Care Blood Donor Recruiter Supervisor Name Role Phone Clinician, Not Found MD Primary Care Provider Un available Reason for Visit * Reason Comments Questions Encounter Details Date Type Department Care Team (Late st Contact Info) Description 12/30/2023 Telephone [facility] [address] [place], [place] [address] Zakia Carrillo, SUPERVISOR POWER REACTOR, BENCH PRESS OPERATOR [address] [place] [address] Questions Social History Tobacco Use Types Packs/Day [...] [place] * Erendira Prince - 12/30/2023 3:02 PM [...] can we send you a message in LawPal? No [Registered Nurse Cardiovascular Icu/Scale Reclamation Tender: Relay to patient; We make every effort to get back to you sameday, however it may take 1-2 business days depending on the nature of the communication.] documented in this encounter Plan of Treatment Not on file documented as of this encounter Visit Diagnoses Not on filedocumented in this encounter Care Teams Blood Donor Recruiter Supervisor Relationship Specialty Start Date End Date Clinician, Not Found, [place] [address] PCP - General 06/23/20 documented as of this encounter
--- OUTSIDE RECORDS SUMMARY | 2024-07-05 15:20 | XMS_ITS | Clinical Summary ---
Author Organization [facility] Address [place], [place] [address] Care Team Providers Care Billing Clinician Name Role Phone Aba Boo MD Primary Care Provider + Destin Johnston MD Unavailable [phone] Nurses, Advanced Heart Failure Unavailable + Allergies [...] type, unspecified whether angina present, unspecified whether grand [place] or transplanted heart Take 1 Tablet (10 [...] and secondary concerned persons: Spouse Alexus Petty [phone] Daughter Zuri [phone] Hypothyroidism 09/10/2011 Atrial fibrillation Overview (12/07/2013): - [...] Positive blood culture 10/18/202302/16 Hypotension 10/11/2023 02/17/2024 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 [address] [place] [address] Rosalie Senior NP 1 scan: (1-Ord) BMP 06/2906/29/2024 2:20 PM CDT Office Visit [facility] [address] [place] [address] Rosalie Senior NP CV Electrophysiology Est (10 Week Follow Up, Paroxysmal atrial fibrillation/pcp: Aba Boo MD/) 06/29/2024 Travel 06/29/2024 Telephone [facility] [address] [facility] [address] [place] [phone] Stephen Mederos RN 06/29/2024 Telephone [facility] [address] [facility] [address] [place] [phone] Rosalie Senior NP Device Check 06/28/2024 Telephone [facility] [address] [facility] [address] [place] [phone] Destin Johnston MD 06/28/2024 Telephone [facility] [address] [phone] Destin Johnston MD Edema (Edema & verify labs for upcoming appt in ) 06/24/2024 Travel 06/23/2024 5:53 PM CDT - 06/25/2024 4:55 PM CDT Hospital Encounter [facility] [address] [place] [address] Aba Lynn, Aba Lim MD Melamed, Roman, MD Residents, Icu Cellulitis of left lower extremity (Primary Dx); Primary cardiomyopathy (HC); Acute on chronic HFrEF (heart failure with reduced ejection fraction) (HC); MEGAN (acute kidney injury) (HC) Discharge Disposition: Home Self Care 2024 Telephone [facility] [address] [facility] [address] [place] [phone] Destin Johnston MD 06/15/2024 Telephone [facility] [address] [place] [address] Sanjay Lazaro MD Questions 06/10/2024 8:00 AM CDT Office Visit [facility] [address] [place] [address] Destin Johnston MD Follow Up (F/U PER [...] be on it again.) 06/10/2024 Telephone [facility] [address] [facility] [address] [place] [phone] Riaz Peterson MD Questions 06/09/2024 11:30 AM CDT Orders Only [facility] [address] [place] [address] Lab, [facility] Lab 06/09/2024 Travel 06/08/2024 Orders Only [facility] [place] [address] [facility] [address] [place] [phone] Sanjay Lazaro MD <No scans attached> 06/08/2024 Telephone [facility] [place] [address] [facility] [address] [place] [phone] Jono Peters MD Appointment 06/02/2024 9:45 AM CDT Office Visit [facility] [address] [place] [address] Sanjay Lazaro MD Hand Pain/problem (Right wrist numbness/tingling) 06/02/2024 Orders Only [facility] [place] [address] [place] [phone] Sanjay Lazaro MD <No scans attached> 06/02/2024 Travel 05/27/2024 9:04 AM CDT Anesthesia Event [facility] [address] [place] [address] Erendira Velez MD Riley, Benjamin William, JAREN 05/27/2024 7:15 AM CDT - 05/27/2024 10:24 AM CDT Hospital Encounter [facility] [address] [place] [address] Seamus Cole MD Atrial fibrillation, persistent (HC) Discharge Disposition: Home Self Care 05/27/2024 Travel 05/24/2024 8:30 AM CDT Office Visit [facility] - [address] [place] [address] Iva Johnston CNS Follow Up (CHF FOLLOWUP /POST ABLATION DONE ON 05/11... Post modified diuretic with CMP post ablation/LABS PRIOR IN [place]/I42.9 (ICD-10-CM) - Primary cardiomyopathy (HC)/I50.23 (ICD-10-CM) - Acute on chronic HFrEF (heart failure with reduced ejection fraction) (HC) /PT states feeling ok./Went into afib a couple days later going back on ) 05/24/2024 Telephone [facility] [place] [address] [facility] [address] [place] [phone] Riaz Peterson MD Error-please disregard 05/24/2024 Travel 05/20/2024 12:00 PM CDT Orders Only [facility] [address] [place] [address] Lab, [facility] Lab 05/20/2024 Telephone [facility] [place] [address] [place] [phone] Seamus Cole MD Atrial Fibrillation 05/20/2024 Travel 05/19/2024 Telephone [facility] [address] [place] [place] [phone] Destin Johnston MD Medication Management 05/19/2024 Telephone [facility] [address] [place] [address] [place] [phone] Marquis Santana MD Medication Management 05/19/2024 Telephone [facility] [address] [place] [place] [phone] Susana Joyner I, RN Device Check 05/19/2024 Telephone [facility] [address] [phone] Marquis Santana MD Device Check 05/19/2024 Telephone [facility] [address] [phone] Erendira Sotomayor, STRADDLE BUGGY OPERATOR Weight 05/14/2024 9:37 AM CDT Anesthesia Event [facility] [address] [place] [address] Aba Valerio MD 05/14/2024 7:10 AM CDT - 05/14/2024 11:40 AM CDT Hospital Encounter [facility] [address] [place] [address] Seamus Cole MD Atrial fibrillation, persistent (HC) Discharge Disposition: Home Self Care 05/14/2024 Travel 05/13/2024 9:20 AM CDT Orders Only [facility] [address] [facility] [address] [place] [address] Lab 05/13/2024 Telephone [facility] [address] [phone] Martha Warner RN 05/13/2024 Telephone [facility] [address] [phone] Marquis Santana MD Results (LFT and TSH results on Amiodarone) 05/12/2024 Travel 05/11/2024 7:46 AM CDT Anesthesia Event [facility] [address] [place] [address] Alan Yao DO 05/11/2024 5:41 AM CDT - 05/11/2024 5:50 PM CDT Hospital Encounter [facility] [address] [place] [address] Marquis Santana MD Kroll, Sharon Marie, CRNA Primary cardiomyopathy (HC) (Primary Dx); Acute on chronic HFrEF (heart failure with reduced ejection fraction) (HC) Discharge Disposition: Home Self Care 05/11/2024 Travel 05/04/2024 Telephone [facility] [address] [phone] Marquis Santana MD Medication Management 05/04/2024 Telephone [facility] [address], [place] [address] Guadalupe Rosado RN Appointment 05/03/2024 Telephone [facility] [address] [phone] Marquis Santana MD Concerns (AFIB) 04/30/2024 12:03 PM CDT Anesthesia Event [facility] [address] [place] [address] Aba Valerio MD Wilson, Timothy Eric, CRNA 04/30/2024 10:08 AM CDT - 04/30/2024 3:03 PM CDT Hospital Encounter [facility] [address] [place] [address] Marquis Santana MD Discharge Disposition: Home Self Care 04/30/2024 Travel 04/27/2024 10:15 AM CDT Ancillary Procedure [address] [phone] 04/27/2024 9:45 AM CDT Office Visit [address] [phone] Riaz Peterson MD Recheck (EP, non-displaced left femoral neck fracture DOI:02/11/2024, x-rays) 04/27/2024 Travel 04/25/2024 Telephone [facility] - [address] [place] [address] Dennis Barahona RN 04/22/2024 1:20 PM CDT Orders Only [facility] [address] [place] [address] Lab, [facility] Lab 04/22/2024 Travel 04/20/2024 Telephone [facility] [address] [facility] [address] [place] [phone] Marquis Santana MD Atrial Fibrillation 04/19/2024 9:05 AM CDT Anesthesia Event [facility] [address] [place] [address] Marco Aguiar MD Wilson, Timothy Eric, CRNA 04/19/2024 7:18 AM CDT - 04/19/2024 10:53 AM CDT Hospital Encounter [facility] [address] [place] [address] David Ugarte NP Gebre-Amlak, Kassatihun Debebe, MD Deviley, Janelle Esposito CRNA Atrial fibrillation, unspecified type (HC) (Primary Dx) Discharge Disposition: Home Self Care 04/19/2024 Travel 04/16/2024 7:06 AM CDT - 04/16/2024 10:07 AM CDT Hospital Encounter [facility] [address] [place] [address] Marquis Santana MD Wilson, Timothy Eric, CRNA Obesity, unspecified classification, unspecified obesity type, unspecified whether serious comorbidity present (Primary Dx); Chronic systolic heart failure (HC) Discharge Disposition: Home Self Care 04/16/2024 7:05 AM CDT Anesthesia Event [facility] [address] [place] [address] Placido Chowdhury CRNA 04/16/2024 Travel 04/15/2024 Orders Only [facility] Scanner 1 scan: (1-Ord) SHAHAB 04/15/2024 Telephone [facility] [address] [facility] [address] [place] [phone] Lianna Dominguez RN Device Check (AF alert) 04/14/2024 Telephone [facility] [address] [phone] Destin Johnston MD 04/13/2024 4:20 PM CDT Office Visit [facility] [address] [place] [address] Rosalie Senior NP Heart Problem (Paroxysmal atrial fibrillation); Primary MD (Aba Boo MD/) 04/13/2024 8:00 AM CDT Office Visit [address] [place] [address] Destin Johnston MD CV Heart Failure Est (STAT - IN PERSON F/U VISIT. LABS PRIOR @ [facility] /Acute on chronic HFrEF (heart failure with reduced ejection fraction) //pt states he is in a-fib. He got converted on and went to primary yesterday to confirm he is in A-fib still.//) 04/13/2024 Travel 04/10/2024 Telephone [facility] [place] [address] [phone] Marquis Banda RN Device Check (Patient thinks he back in AF) 04/08/2024 2:40 PM CDT Anesthesia Event [facility] [address] [place] [address] Zion Leigh MD 04/08/2024 12:19 PM CDT - 04/08/2024 3:58 PM CDT Hospital Encounter [facility] [address] [place] [address] Max, MarquisMD Trenton Love Timothy Eric, CRNA Kushins, Zion Sosa MD Persistent atrial fibrillation (HC) (Primary Dx) Discharge Disposition: Home Self Care 04/08/2024 Travel 04/07/2024 Telephone [facility] [place] [address] [place] [address] Marquis Santana MD Schedule Cardioversion 04/05/2024 10:30 AM CDT Office Visit [facility] [address] [place] [phone] Kathleen Boyer PA Follow Up (follow up) 04/05/2024 Travel from Last 3 Months Immunizations Name [...] Description 07/07/2024 11:30 AM CDT Office Visit [facility] [address] [place] [address] Chai Espinosa DPM [address] [place] [address] 07/09/2024 10:40 AM CDT Hospital Encounter [facility] [address] [place] [address] Sanjay Lazaro MD [address] [facility] [address] [place], [place] [phone] 07/09/2024 10:40 AM CDT - 07/09/2024 11:59 AM CDT Surgery [facility] [address] [place] [address] Sanjay Lazaro MD [address] [facility] [address] [place] [address] RIGHT OPEN CARPAL TUNNEL RELEASE. 07/12/2024 Cardiac Device Check [facility] [phone] 07/13/2024 9:00 AM CDT Office Visit [facility] [address] [place], [place] [phone] Iva Johnston, [facility] [address] [place] [address] 07/21/2024 11:00 AM CDT Office Visit [facility] [address] [place] [address] Janeth Resendez PA [address] [place] [address] 10/20/2024 Cardiac Device Check [facility] [phone] 10/25/2024 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 Telemedicine [facility] [address] [place] [phone] Marquis Santana MD [address] [place] [address] Scheduled Procedures Name Priority Associated Diagnoses Date/Ti [...] Completed 03/15/2024 Medical Devices Implanted Type Area It Trainee Device Identifier Shelf Expiration Date Model / Serial / Lot Graft Valsalva 34mm - [id number] Implanted:Qty: 1 on 09/09/2011 at [facility] [employer] [id number] / / Procedures Procedure Name Priority Date/Time [...] SCAN-CARDIAC STRIP 04/08/2024 12 :[address] CHEST ABDOMEN PELVIS W STAT 03/15/2024 2:02 PM CDT LIPID PANEL Routine 01/07/2018 4:35 PM CDT Hypertension from Last 3 Months or Most Recently Relevant to Health Maintenance Results * EKG 12 LEAD (06/29/2024) Only the most recent of15 resultswithin the time period is included. Rosalie Senior NP EKG ORD * BASIC METABOLIC PANEL (06/29/2024) Only the most recent of9 resultswithin the time period is included. SODIUM POTASSIUM CHLORIDE CO2,TOTAL ANION GAP GLUCOSE BUN CREATININE BUN/CREAT RATIO CALCIUM Blood BLOOD SPECIMEN / Unknown 06/29/2024 Rosalie Senior NP CHEMISTRY * SCAN-CARDIAC STRIP (06/25/2024 3:05 PM CDT) Scanner OTHER * SCAN-CARDIAC STRIP (06/25/2024 3:03 PM CDT) Scanner OTHER * (ABNORMAL) GLUCOSE METER (06/25/2024 12:27 PM CDT) Only the most recent of6 resultswithin the time period is included. GLUCOSE METER 131(H) 65 - 100 mg/dL 06/25/2024 12:33 PM CDT [facility] Blood BLOOD SPECIMEN / Unknown 06/25/2024 12:27 PM CDT 06/25/2024 12:33 PM CDT Marty Vásquez MD [facility]STRY [facility] [address] [phone], * ECHO TTE LIMITED W CONTRAST W COLOR W DOPPLER (06/25/2024 12:13 PM CDT) AORTIC VALVE MEAN PG 7 mmHg EJECTION FRACTION 54 % PEAK TR VELOCITY 3.1 m/s LVEDD 6.1 cm Anatomical Region Laterality Modality Ultrasound 06/25/2024 10:0 8 AM CDT Narrative 06/25/2024 12:56 PM CDT ECHOCARDIOGRAM RAIN PETTY ? Accession#: ?? [id number] : ?1950 74 years Study Date: ?? 06/25/2024 10:08:58 AM Gender: M ?BP: ? 106/55 mmHg Height: 200.00 cm ?BSA: ?2.66 m? ? ? Weight: 131.00 kg ?Tech: ? SS ? Referring MD: YOBANI SHAH Site: ? [facility] Reading Location: ANW IP Patient [...] documentation: 2.0 ml diluted Definity, lot #[id number], [facility]# [id number] was administered peripherally to enhance visualization of all left ventricular segments. . This study was interpreted by an [facility] accredited facility. ??Final ?? Procedure Note Ramon Al MD - 06/25/2024 ECHOCARDIOGRAM RAIN PETTY : 1950 74 years Study Date: 06/25/2024 10:08:58 AM Gender: M BP: 106/55 mmHg Height: 200.00 cm BSA: 2.66 m? ? ? Weight: 131.00 kg Tech: Referring MD: YOBANI HERNANDEZ Site: [facility] Reading Location: [facility] Patient Location: Inpatient. Procedure: Color Doppler, Limited [...] documentation: 2.0 ml diluted Definity, lot #[id number], [facility]#[id number] was administered peripherally to enhance visualization of allleft ventricular segments. . This study was interpreted by an [facility] accredited facility. Final Yobani Shah MD ECH O ORD * SCAN-CARDIAC STRIP (06/25/2024 7:56 AM CDT) Scanner OTHER * (ABNORMAL) CBC W PLT NO DIFF (06/25/2024 5:30 AM CDT) Only the most recent of2 resultswithin the time period is included. WHITE BLOOD COUNT 9.0 4.5 - 11.0 thou/cu mm 06/25/2024 5:50 AM CDT [facility] RED BLOOD COUNT 3.89(L) 4.30 - 5.90 mil/cu mm 06/25/2024 5:50 AM CDT [facility] HEMOGLOBIN 11.3(L) 13.5 - 17.5 g/dL 06/25/2024 5:50 AM CDT [facility] HEMATOCRIT 36.4(L) 37.0 - 53.0 % 06/25/2024 5:50 AM CDT [facility] MCV 94 80 - 100 fL 06/25/2024 5:50 AM CDT [facility] MCH 29.0 26.0 - 34.0 pg 06/25/2024 5:50 AM CDT [facility] MCHC 31.0(L) 32.0 - 36.0 g/dL 06/25/2024 5:50 AM CDT [facility] RDW 18.4(H) 11.5 - 15.5 % 06/25/2024 5:50 AM CDT [facility] PLATELET COUNT 177 140 - 440 thou/cu mm 06/25/2024 5:50 AM CDT [facility] MPV 9.2 6.5 - 11.0 fL 06/25/2024 5:[address] [facility] NRBC 0.0 % 06/25/2024 5:50 AM CDT [facility] ABS NRBC 0.0 thou /cu mm 06/25/2024 5:50 AM CDT [facility] Blood BLOOD SPECIMEN / Unknown Butterfly / Unknown 06/25/2024 5:30 AM CDT 06/25/2024 5:43 AM CDT Marty Vásquez MD HEMATOLOGY Performing Organization Address City/[facility]/ZIP Co de Phone Number [facility] [address] [place] [address], * (ABNORMAL) PHOSPHORUS (06/25/2024 5:30 AM CDT) Only the most recent of3 resultswithin the time period is included. PHOSPHORUS 2.2(L) 2.5 - 4.5 mg/dL 06/25/2024 6:30 AM CDT [facility] Blood BLOOD SPECIMEN / Unknown Butterfly / Unknown 06/25/2024 5:30 AM CDT 06/25/2024 5:43 AM CDT Aba Lynn DO CHEMISTRY Performing Organization Address [facility] Co de Phone Number [facility] [address] [place] [address], * MAGNESIUM (06/25/2024 5:30 AM CDT) Only the most recent of4 resultswithin the time period is included. MAGNESIUM 2.4 1.6 - 2.4 mg/dL 06/25/2024 6:22 AM CDT [facility] Blood BLOOD SPECIMEN / Unknown Butterfly / Unknown 06/25/2024 5:30 AM CDT 06/25/2024 5:43 AM CDT Aba Lynn DO CHEMISTRY Performing Organization Address City/[facility] de Phone Number [facility] [address] [place] [address], * CALCIUM IONIZED HOSPITAL DRAW ONLY (06/25/2024 2:49 AM CDT) Only the most recent of3 resultswithin the time period is included. CALCIUM,IONIZE D 1.17 1.15 - 1.27 mmol/L 06/25/2024 3:02 AM CDT [facility] Blood BLOOD SPECIMEN / Unknown Butterfly / Unknown 06/25/2024 2:49 AM CDT 06/25/2024 2:56 AM CDT Marty Vásquez MD CHEMISTRY Performing Organization Address [facility] de Phone Number [facility] [address] [place] [address], * (ABNORMAL) HEMOGLOBIN (06/24/2024 10:29 PM CDT) [facility] HEMOGLOBIN 11.3(L) 13.5 - 17.5 g/dL 06/24/2024 10:41 PM CDT [facility] MCV 94 80 - 100 fL 06/24/2024 10:41 PM CDT [facility] Blood BLOOD SPECIMEN / Unknown Butterfly / Unknown 06/24/2024 10:29 PM CDT 06/24/2024 10:38 PM CDT Alvaro NARVAEZ HEMATOLOGY Performing Organization Address [facility] Co de Phone Number [facility] [address] [place] [address], * SCAN CORRESP-EKG RESULTS (06/24/2024 11:58 AM CDT) Narrative 06/24/2024 11:58 AM CDT Ordered by an unspecified provider. Other Clinical Staff OTHER * SCAN-CARDIAC STRIP (06/24/2024 7:22 AM CDT) Scanner OTHER * POTASSIUM (06/24/2024 6:19 AM CDT) POTASSIUM 4.8 3.5 - 5.1 mmol/L 06/24/2024 7:12 AM T [facility] Blood BLOOD SPECIMEN / Unknown Butterfly / Unknown 06/24/2024 6:19 AM CDT 06/24/2024 6:35 AM CDT Aba Lynn DO CHEMISTRY [facility] [address] [place] [address], * (ABNORMAL) CBC WITH AUTO DIFFERENTIAL (06/24/2024 4:39 AM CDT) Only the most recent of2 resultswithin the time period is included. Pathologist [facility] WHITE BLOOD COUNT 10.4 4.5 - 11.0 thou/cu mm 06/24/2024 5:01 AM T [facility] RED BLOOD COUNT 4.10(L) 4.30 - 5.90 mil/cu mm 06/24/2024 5:01 AM T [facility] HEMOGLOBIN 11.5(L) 13.5 - 17.5 g/dL 06/24/2024 5:01 AM [facility] HEMATOCRIT 38.1 37.0 - 53.0 % 06/24/2024 5:01 AM [facility] MCV 93 80 - 100 fL 06/24/2024 5:01 AM T [facility] MCH 28.0 26.0 - 34.0 pg 06/24/2024 5:01 AM T [facility] MCHC 30.2(L) 32.0 - 36.0 g/dL 06/24/2024 5:01 AM [facility] RDW 18.5(H) 11.5 - 15.5 % 06/24/2024 5:01 AM [facility] PLATELET COUNT 216 140 - 440 thou/cu mm 06/24/2024 5:01 AM [facility] MPV 10.4 6.5 - 11.0 fL 06/24/2024 5:01 AM [facility] NRBC 0.0 % 06/24/2024 5:01 AM [facility] ABS NRBC 0.0 thou /cu mm 06/24/2024 5:01 AM [facility] % NEUT 55.9 % 06/24/2024 5:01 AM [facility] % LYMPH 26.7 % 06/24/2024 5:01 AM [facility] % MONO 13.6 % 06/24/2024 5:01 AM [facility] % EOS 2.7 % 06/24/2024 5:01 AM [facility] % BASO 0.5 % 06/24/2024 5:01 AM [facility] % IMMATURE GRAN (METAS,MYELOS,VA OS) 0.6 % 06/24/2024 5:01 AM [facility] ABSOLUTE NEUTROPHILS 5.8 1.7 - 7.0 thou/cu mm 06/24/2024 5:01 AM [facility] ABSOLUTE LYMPHOCYTES 2.8 0.9 - 2.9 thou/cu mm 06/24/2024 5:01 AM [facility] ABSOLUTE MONOCYTES 1.4(H) <0.9 thou/cu mm 06/24/2024 5:01 AM [facility] ABSOLUTE EOSINOPHILS 0.3 <0.5 thou/cu mm 06/24/2024 5:01 AM [facility] ABSOLUTE BASOPHILS 0.1 <0.3 thou/cu mm 06/24/2024 5:01 AM [facility] ABSOLUTE IMMATURE GRANULOCYTES(MET ,MYELOS,PROS) 0.1 <0.3 thou/cu mm 06/24/2024 5:01 AM [facility] Blood BLOOD SPECIMEN / Unknown IV Start / Unknown 06/24/2024 4:39 AM CDT 06/24/2024 4:56 AM CDT Aba Lynn DO HEMATOLOGY Performing Organization Address City/[facility]/ZIP Co de Phone Number [facility] [address] [address], [place] * (ABNORMAL) HEPATIC FUNCTION PANEL (06/24/2024 4:39 AM CDT) Only the most recent of2 resultswithin the time period is included. Pathologist [facility] ALBUMIN 3.9(L) 4.0 - 4.9 g/dL 06/24/2024 5:56 AM CDT [facility] PROTEIN,TOTAL 6.4 6.0 - 8.0 g/dL 06/24/2024 5:56 AM CDT [facility] BILIRUBIN,TOTAL 0.4 0.0 - 1.2 mg/dL 06/24/2024 5:56 AM CDT [facility] BILIRUBIN,DIRECT 06/24/20 5:56 AM CDT [facility] Comment:Canceled- Specimen H emolyzed, Disposition Per Policy ALK PHOSPHATASE 117 40 - 129 IU/L 06/24/2024 5:56 AM CDT [facility] ALT (SGPT) 06/24/2024 5:56 AM CDT [facility] Comment:Canceled- Specimen H emolyzed, Disposition Per Policy AST (SGOT) 06/24/2024 5:56 AM CDT [facility] Comment:Canceled- Specimen H emolyzed, Disposition Per Policy Blood BLOOD SPECIMEN / Unknown IV Start / Unknown 06/24/2024 4:39 AM CDT 06/24/2024 4:55 AM CDT Aba Lynn DO CHEMISTRY Performing Organization Address City/[facility]/ZIP Co de Phone Number [facility] [address] [address], * MRSA/SA PCR (06/24/2024 2:43 AM CDT) MRSA DNA PCR Negative Negative 06/24/2024 4:04 AM CDT [facility] STAPHYLOCOCCUS AUREUS PCR Negative Negative 06/24/2024 4:[address] [facility] Other SPECIMEN FROM INTERNAL NOSE / Unknown Non-Blood / Unknown 06/24/2024 2:43 AM CDT 06/24/2024 2:53 AM CDT Narrative [facility] - 06/24/2024 4:04 AM CDT Test result does not preclude MRSA or SA nasal colonization. Aba Lynn DO MICROBIOLOGY Performing Organization Address [facility] Co de Phone Number [facility] [address] [place] [address], * SCAN-CARDIAC STRIP (06/24/2024 1:24 AM CDT) Scanner OTHER * VANCOMYCIN (06/23/2024 9:36 PM CDT) Pathologist [facility] VANCOMYCIN 15.9 ug/mL 06/23/2024 10:17 PM CDT [facility] Comment:No Reference Range D efined. DATE OF LAST DOSE,RANDOM Not Given 06/23/2024 10:17 PM CDT [facility] TIME OF LAST DOSE,RANDOM Not Given 06/23/2024 10:17 PM CDT [facility] Blood BLOOD SPECIMEN / Unknown Venipuncture / Unknown 06/23/2024 9:36 PM CDT 06/23/2024 9:46 PM CDT Aba Lynn DO CHEMISTRY Performing Organization Address [facility] Co de Phone Number [facility] [address] [place] [address], * SCAN-CARDIAC STRIP (06/23/2024 7:40 PM CDT) Scanner OTHER * SCAN-CARDIAC STRIP (06/23/2024 7:40 PM CDT) Scanner OTHER * Blood Culture (06/23/2024 6:28 PM CDT) Only the most recent of2 resultswithin the time period is included. Pathologist [facility] CULTURE No Growth. 06/28/2024 9:12 PM CDT [facility] Blood BLOOD SPECIMEN / Unknown Venipuncture / Unknown 06/23/2024 6:28 PM CDT 06/23/2024 6:33 PM CDT Narrative [facility] - 06/28/2024 9:12 PM CDT Low volume blood culture received; possible false negative culture. Aba Lynn DO MICROBIOLOGY Performing Organization Address City/[facility] Co de Phone Number [facility] [address] [place] [address], * LACTATE VENOUS (06/23/2024 6:23 PM CDT) Pathologist [facility] LACTATE,VENOUS 1.1 0.5 - 2.0 mmol/L 06/23/2024 6:58 PM CDT [facility] Blood BLOOD SPECIMEN / Unknown Venipuncture / Unknown 06/23/2024 6:23 PM CDT 06/23/2024 6:34 PM CDT Aba Lynn DO CHEMISTRY Performing Organization Address City/[facility]/ZIP Co de Phone Number [facility] [address] [place] [address], * (ABNORMAL) Protime - INR (06/23/2024 6:23 PM CDT) Pathologist [facility] INR 1.6(H) <1.3 06/23/2024 6:46 PM CDT [facility] PROTIME 17.5(H) 10.3 - 12.3 sec 06/23/2024 6:46 PM CDT [facility] Blood BLOOD SPECIMEN / Unknown Venipuncture / Unknown 06/23/2024 6:23 PM CDT 06/23/2024 6:34 PM CDT Narrative [facility] - 06/23/2024 6:46 PM CDT ?Therapeutic Range [...] is on UFH. Aba Lynn DO HEMATOLOGY [facility] [address] [place] [address], [place] * XR CHEST 1 VIEW PORTABLE (06/23/2024 6:17 PM CDT) Anatomical Region Laterality Modality HEART, THORAX, CHEST Digital Rad iography 06/23/2024 7:44 PM CDT Impressions 06/23/2024 7:44 PM CDT Hypoinflated lungs. Streaky left basilar opacities, likely atelectasis. No large focal consolidation. Dictated by Anna Osorio MD @ Jun 23 2024 ??7:44PM (Electronically Signed) [email or web address] Narrative 06/23/2024 7:44 PM CDT For Patients: [...] @ Jun 23 2024 7:44PM (Electronically Signed) [email or web address] Aba Lynn DO GENERAL IMAGIN G * (ABNORMAL) PRO-BNP (06/09/2024 11:43 AM CDT) Only the most recent of4 resultswithin the time period is included. PRO-BNP 730(H) <125 pg/mL 06/09/2024 12:42 PM CDT [facility] Blood BLOOD SPECIMEN / Unknown Venipuncture / Unknown 06/09/2024 11:43 AM CDT 06/09/2024 11:45 AM CDT [facility] - 06/09/2024 12:42 PM CDT [...] for acute congestive heart failure. ? Iva Flori Johnston TECHNICAL RESEARCH SCIENTIST SEND OUTS Performing Organization Address City/State/[facility] Co de Phone Number [facility] [address] [place] [address] * EP CARDIOVERSION (05/27/2024 9:10 AM CDT) Anatomical Region Laterality Modality X-Ray Angiograph y Narrative 05/27/2024 9:10 AM CDT Kathi Mcmanus PA ? 05/27/2024 ??9:11 AM [facility] Cardiac Electrophysiology Procedure Note DOS: 05/27/2024 Brief History: ??Rain Petty is a pleasant 73 y.o. with history of atrial arrhythmias who now presents to [facility] NPO since midnight for direct current cardioversion. ??Anticoagulated with Xarelto 20 mg daily and no missed doses for at least 3 consecutive weeks. ?? Procedure Description: ??Time out was called. ??Brief general anesthesia by anesthesia service. ??Cardioversion patches were placed in an anterior/posterior position. ??One synchronized 200 J shock was delivered with successful zoroastrianism AP-VS rhythm, VRs 70s. ?? Complications: ??No acute complications. ?? Plan: ?? Rain Petty is now recovering from sedation and anticipate discharge home later today. Dr. Cuadra was the collaborating physician throughout the time services were performed. Kathi Mcmanus PA-C [facility] Cardiac Electrophysiology Services Seamus Cole MD CV IMAGING * POTASSIUM,ISTAT (05/27/2024 8:04 AM CDT) Only the most recent of6 resultswithin the time period is included. Pathologist [facility] POTASSIUM, POCT 3.7 3.5 - 5.0 mmol/L 05/28/2024 8:30 AM CDT [facility] Blood BLOOD SPECIMEN / Unknown 05/27/2024 8:04 AM CDT 05/28/2024 8:30 AM CDT Seamus Cole [facility]Y [facility] [address] [place] [address], * SCAN-CARDIAC STRIP (05/27/2024 12:00 AM CDT) Narrative 05/27/2024 12:00 AM CDT Ordered by an unspecified provider. Other Clinical Staff OTHER * ALT (SGPT) (05/20/2024 11:09 AM CDT) Only the most recent of3 resultswithin the time period is included. [facility] ALT (SGPT) 28 10 - 50 IU/L 05/20/2024 2:49 PM CDT [facility] Blood BLOOD SPECIMEN / Unknown Venipuncture / Unknown 05/20/2024 11:09 AM CDT 05/20/2024 11:10 AM CDT Marquis Santana MD CHEMISTRY [facility] [address] [place] [address] * AST (SGOT) (05/20/2024 11:09 AM CDT) Only the most recent of3 resultswithin the time period is included. [facility] AST (SGOT) 42 10 - 50 IU/L 05/20/2024 2:39 PM CDT [facility] Blood BLOOD SPECIMEN / Unknown Venipuncture / Unknown 05/20/2024 11:09 AM CDT 05/20/2024 11:10 AM CDT Marquis Santana MD CHEMISTRY [facility] [address] [place] [address] * EP CARDIOVERSION (05/14/2024 9:46 AM CDT) Anatomical Region Laterality Modality X-Ray Angiograph y Narrative 05/14/2024 9:46 AM CDT Seamus Cole MD ? 05/17/2024 ??7:41 AM [facility] Cardiac Electrophysiology Procedure Note DOS: 05/14/2024 Brief History: ??Mr. Petty is a pleasant 73 year old with history of atrial arrhythmias who now presents to [facility] NPO since midnight for direct current cardioversion. ??Rivaroxaban 20 mg daily with evening meal with no missed doses in the past 21 days. Procedure Description: ??Time out was called. ??Brief general anesthesia by anesthesia service. ??Cardioversion patches were placed in an anterior/posterior position. ??One 250 joules synchronized shock delivered with zoroastrianism of an AV paced rhythm. ?? Complications: ??No acute complications. ?? Plan: ??Mr. Petty is now recovering from sedation and would anticipate discharge home later today. Dr. Cole was readily available to provide assistance and direction throughout the time services were performed Esther Macdonald NP ?? [facility] Cardiac Electrophysiology Services Seamus Cole MD Cardiac Arrhythmia Section [facility] Seamus Cole MD CV IMAGING * SCAN-CARDIAC STRIP (05/14/2024 12:00 AM CDT) Narrative 05/14/2024 12:00 AM CDT Ordered by an unspecified provider. Other Clinical Staff OTHER * SCAN-CARDIAC STRIP (05/11/2024 1:28 PM CDT) Scanner OTHER * (ABNORMAL) ACTIVATED CLOTTING TIME [id number] ACT (05/11/2024 11:38 AM CDT) Only the most recent of6 resultswithin the time period is included. ACTIVATED CLOTTING TIME, POCT 174(H) 74 - 125 sec 05/11/2024 11:52 AM CDT [facility] Blood BLOOD SPECIMEN / Unknown 05/11/2024 11:38 AM CDT 05/11/2024 11:52 AM CDT Marquis Santana MD [facility]ATOLOGY [facility] [address] [place] [address], * EP STUDY /ABLATION (05/11/2024 8:13 AM CDT) Anatomical Region Laterality Modality X-Ray Angiograph y, X-Ray Angiography 05/11/2024 8:13 AM CDT Narrative Transcriptions Marquis Santana MD - 05/11/2024 5:20 PM CDT [place] [facility] Electrophysiology Procedure Report Name: RAIN PETTY Event Date: 05/11/2024 [place] ID #: [id number] Date: 1950 Gender: Male Age: 73 [facility] #: [id number] Procedure Performed By: MARQUIS SANTANA [facility] Referring Physician: Summary / Conclusions 1. Complex [...] ? Same as Pre-operative diagnosis Consent & [place] Protocol [place] protocol was followed. TIME OUT conducted just [...] micropuncturetechnique, two sheaths were introduced (one 8 Tanzanian and one 7 Tanzanian)into the right femoral vein, one 9 Tanzanian sheath was introduced into theleft femoral vein. [...] the electrophysiology study and ablation procedure. Utilizing FlowPlaypan needle, the puncture was executed under the [...] the ACT. [facility] [...] Intervals Study State Underlying Rhythm Cycle Length VA PA AH HV QRS Dora QRSMorphology Baseline Atrial Fibrillation [phone] Post Ablation [...] See Anesthesia Note Total Flouro Time: 4.5 CHEESEMAKING LABORER Total Flouro Dose: 7 mGy Transseptal Mean LA Pressure: 20 mmHg Staff Name Role Marquis Santana Search Engine Optimization Strategist Mary Juarez RN Nurse Will Dumont CVT Monitor Elayne Cano CVT Scrub Mo Clancy EPClinton Multiple Coil Winder Medications Ordered and Administered Start Time Stop Time Medication Dose Units Route Ordered By Given By 08:15 0.25% Bupivicaine 10 mL Subcut MD Marquis Melton MD 08:16 1% Lidocaine Hydrochloride 10 mL Subcut MD Marquis Melton MD 08:19 0.25% Bupivicaine 5 mL Subcut MD Marquis Melton MD 08:19 1% Lidocaine Hydrochloride 5 mL Subcut MD Marquis Melton MD 08:25 Heparin 97777 Units IV MD Mary Melton RN 08:37 [...] with status of Final Marquis Santana MD Search Engine Optimization Strategist [facility][NOTE 3] [address] [place] [address] (p) [phone](f) Marquis aSntana MD CV IMAGING * HCHG INSTRUMENT DISP [...] Adequate, No estimate 05/11/2024 7:24 AM CDT [facility] Blood BLOOD SPECIMEN / Unknown Venipuncture / Unknown 05/11/2024 6:13 AM CDT 05/11/2024 6:22 AM CDT Marquis Santana MD HEMATOLOGY Performing Organization Address [facility] Co de Phone Number [facility] [address] [place] [address], * EXTRA TUBE GOLD/SST (05/11/2024 6:10 AM CDT) Blood BLOOD SPECIMEN / Unknown Extra Tube / Unknown 05/11/2024 6:10 AM CDT 05/11/2024 6:23 AM CDT Marquis Santana MD LABORATORY Performing Organization Address [facility] Co de Phone Number [facility] [address] [place] [address], * SCAN-CARDIAC STRIP (05/11/2024 12:00 AM CDT) [...] MD DEVICE DATA Medtronic Evera MRI XT [id number] SN: [id number] Implant Date 08/03/2019 LEAD DATA Atrial Lead: Medtronic 5076 - 52 MRI SN: [id number] Implant Date 08/03/2019 RV Lead: Medtronic 6935M - 62 MRI SN: [id number] Implant Date 08/03/2019 Tachy therapy hx: none 01/2023 Presence of a glassed feedthrough creates increased risk of unexpected HV arching within the header during therapy delivery. All HV pathways have been programmed B>AX. Hx: ??DCCV 04/30/24 DCCV ??04/19/24 Location of evaluation: [facility] P/R 18 post Cardioversion Reason for [...] past two weeks from his device: per systems programmer analyst reason for alert was that it was unable to send a transmission. ??Patient and family confirm that bedside monitor is plugged in. ??Provided family with [employer] Support number in case this happens again. Follow up: as previously scheduled [facility] on 06/25/24 prior to seeing Rosemarie Senior NP in [place] Routine follow up: Every 3 - 4 months via [facility] remote with annual [place] or clinic with Dr. Santana each February. Susana Joyner, RN Nurse Clinician II [facility] Pacemaker/ICD Clinic [phone] Marquis Santana MD CARDIAC SERVICES ORD * EP CARDIOVERSION (04/30/2024 12:06 PM CDT) Anatomical Region Laterality Modality X-Ray Angiograph y Narrative 04/30/2024 12:06 PM CDT Nora Lara NP ? 04/30/2024 12:21 PM [facility] Cardiac Electrophysiology Procedure Note DOS: 04/30/2024 Brief History: ??Rain Petty is a pleasant 73 y.o. year old [...] ??One 200 joules synchronized shock delivered with zoroastrianism of sinus rhythm. ?? Complications: ??No acute complications. ?? Plan: ?? Rain Petty is now recovering from sedation and would anticipate discharge home later today. Dr. Juarez was readily available to provide assistance and direction throughout the time services were performed Nora Lara NP [facility] Cardiac Electrophysiology Marquis Santana MD CV IMAGING * SCAN-CARDIAC STRIP (04/30/2024 12:00 AM CDT) Narrative 04/30/2024 12:00 AM CDT Ordered by an unspecified provider. Other Clinical Staff OTHER * XR HIP 2 OR 3 VIEWS W PELVIS LEFT (04/27/2024 10:24 AM CDT) Anatomical Region Laterality Modality HIPS, HIPL, Pelvis [...] radiology exam was performed at the [facility] Orthopedic Radiology Department in [place] and interpreted by Riaz Peterson MD. HISTORY: [...] 4.20 uIU/mL 04/22/2024 2:25 PM CDT [facility] Blood BLOOD SPECIMEN / Unknown Venipuncture / Unknown 04/22/2024 1:29 PM CDT 04/22/2024 1:29 PM CDT Narrative [facility] - 04/22/2024 2:25 PM CDT In Adults, TSH values between 5.00 and 10.00 uIU/ml do not necessarily indicate the presence of Hypothyroidism. Correlation with clinical findings such as presence of goiter and/or Thyroperoxidase (TPO) Antibody may be helpful. For more information please refer to YU 2004; 291: 228-238. Mraquis Santana MD CHEMISTRY [facility] [address] [place], [place] [id number] * SCAN-CARDIAC STRIP (04/19/2024 12:00 AM CDT) Narrative 04/19/2024 12:00 AM CDT Ordered by an unspecified provider. Other Clinical Staff OTHER * SCAN-ELECTROMYOGRAM EMG (04/15/2024 12:00 AM CDT) Scanner OTHER * EP CARDIOVERSION (04/08/2024 2:44 PM CDT) Anatomical Region Laterality Modality X-Ray Angiograph y Narrative 04/08/2024 2:44 PM CDT Seamus Cole MD ? 04/08/2024 ??4:11 PM [facility] Cardiac Electrophysiology Procedure Note DOS: 04/08/2024 Brief History: ??Rain Petty is a pleasant 73 y.o. year old with history of persistent atrial fibrillation who now presents to [facility] NPO since midnight for direct current cardioversion. [...] ??No acute complications. ?? Plan: ?? Rain Petty is now recovering from sedation and would anticipate discharge home later today. Dr. Cole was readily available to provide assistance and direction throughout the time services were performed David Ugarte NP [facility] Cardiac Electrophysiology Seamus Cole MD Cardiac Arrhythmia Section [facility] Marquis Santana MD CV IMAGING * SCAN-CARDIAC STRIP (04/08/2024 12:00 AM CDT) Narrative 04/08/2024 12:00 AM CDT Ordered by an unspecified provider. Other Clinical Staff OTHER * CT CHEST ABDOMEN PELVIS W (03/15/2024 [...] (ABNORMAL) LIPID PANEL (01/07/2018 4:35 PM CDT) [facility] CHOLESTEROL,TOTAL 174 100 - 199 mg/dL 01/07/2018 6:28 PM T [facility] TRIGLYCERIDES 194(H) <150 mg/dL 01/07/2018 6:28 PM T [facility] HDL CHOLESTEROL 64 >40 mg/dL 8 6:28 PM CDT [facility] NON-HDL CHOLESTEROL 110 <145 mg/dl 01/07/2018 6:28 PM CDT [facility] CHOL/HDL RATIO 2.72 <4.50 01/07/2018 6:28 PM [facility] LDL CHOLESTEROL 71 <=130 mg/dL 01/07/2018 6:28 PM [facility] PROVIDER ORDERED STATUS RANDOM 01/07/2018 6:28 PM T [facility] Blood BLOOD SPECIMEN / Unknown Venipuncture / Unknown 01/07/2018 4:35 PM CDT 01/07/2018 4:39 PM CDT Aba Boo MD CHEMISTRY [address] [place] [address] from Last 3 Months or Most Recently [...] Code Status Discussion: Reviewed Preferences Care Teams Billing Clinician Relationship Specialty Start Date End Date Aba Boo MD [address] [place] [address] PCP - General Family Practice 11/18/19 Destin Johnston MD [address] [address] Cardiology - CHF Cardiovascular Disease 04/14/20 Nurses, Advanced Heart Failure [address] [address] Advanced Heart Failure/Transplant Card 04/14/20
--- OUTSIDE RECORDS SUMMARY | 2024-07-05 15:20 | XMS_ITS | Clinical Summary ---
Author Organization [facility] Address [address] [place] [address] Care Team Providers Care Pot Fireman Name Role Phone Clinician, Not Found MD Primary Care Provider Un available Source Comments You are receiving this document as you are listed as the primary care provider,follow-up provider, or the patient has been referred to you for consultation.This is in compliance with the Medicare and[facility] EHR Incentive Program,which states Providers who transition their patient to another setting of careor provider of care or refers their patient to another provider of care shouldprovide summary care record for each transition of care or referral. [employer] Allergies No known active allergies Medications Medication [...] 020 Overview (06/15/2020): By Dr. Murrieta at [facility]. Ascending aorta dilation 06/15/2020 Overview [...] this topic Medical Devices Implanted Type Area Validation Consultant Device Identifier Shelf Expiration Date Model / Serial / Lot Mohan Bone Biomet R 1x40 - [id number] Implanted:Qty: 2 on 06/15/2020 by Sanjay Murrieta MD at [facility] DEVICE Right: [employer] 07/29/2024 [id number] / / [id number] Patella All Poly Ply 41mm - [id number] Implanted:Qty: 1 on 06/15/2020 by Sanjay Murrieta MD at [facility] DEVICE Right: [employer] 06/28/2026 [id number] / / [id number] Comp Str [address] 14x+30 - [id number] Implanted:Qty: 1 on 06/15/2020 by Sanjay Murrieta MD at [facility] DEVICE Right: [employer] 11/26/2029 [id number] / / [id number] Stem Tib 5deg Szh Rt - [id number] Implanted:Qty: 1 on 06/15/2020 by Sanjay Murrieta MD at [facility] DEVICE Right: [employer] 01/26/2029 [id number] / / [id number] Comp Fem Ps Ccr Ps Std Sz12 Rt - [id number] Implanted:Qty: 1 on 06/15/2020 by Sanajy Murrieta MD at [facility] DEVICE Right: [employer] 06/28/2029 [id number] / / [id number] Asf Ps Ve 10mm 1012 Gh Rt - [id number] Implanted:Qty: 1 on 06/15/2020 by Sanjay Murrieta MD at [facility] DEVICE Right: [employer] 04/28/2021 [id number] / / [id number] Advance Directives * Full Code (Latest Code Status on File) Date Activated Date Inactivated Comments 06/15/2020 2:08 PM 06/17/2020 2:45 PM Care Teams Pot Fireman Relationship Specialty Start Date End Date Clinician, Not Found, [place] [address] PCP - General 06/23/20
== END 2024-07-05 15:19 | disposition home or self-care (01) ==
LOC: WOUND 15:18
PROVIDERS: PCP Family Medicine; Visit Provider Surgery
DX: I87.332 Chronic venous hypertension (idiopathic) with ulcer and inflammation of left lower extremity (principal); I89.0 Lymphedema, not elsewhere classified; L97.822 Non-pressure chronic ulcer of other part of left lower leg with fat layer exposed
CPT/HCPCS: 97597

== ENCOUNTER 2024-07-14 13:17 | Outpatient (CLI) | payer MEDICARE, BC, SELFPAY ==
--- OUTSIDE RECORDS SUMMARY | 2024-07-14 13:20 | XMS_ITS | Clinical Summary ---
Author Organization [facility] Address [address] [place] [address] Care Team Providers Care Gasoline Locomotive Crane Operator Name Role Phone Clinician, Not Found MD Primary Care Provider Un available Source Comments You are receiving this document as you are listed as the primary care provider,follow-up provider, or the patient has been referred to you for consultation.This is in compliance with the Medicare and[facility] EHR Incentive Program,which states Providers who transition their patient to another setting of careor provider of care or refers their patient to another provider of care shouldprovide summary care record for each transition of care or referral. [employer] Allergies No known active allergies Medications Medication [...] 020 Overview (06/15/2020): By Dr. Murrieta at [facility]. Ascending aorta dilation 06/15/2020 Overview (06/15/2020): [...] on patient's age to complete this topic RSV Aged Out No longer eligi ble based on patient's age to complete this topic MCV4 Aged Out No longer eligi ble based on patient's age to complete this topic Medical Devices Implanted Type Area Relaster Device Identifier Shelf Expiration Date Model / Serial / Lot [employer]an Bone [employer]omet R 1x40 - [id number] Implanted:Qty: 2 on 06/15/2020 by Sanjay Murrieta MD at [facility] DEVICE Right: [employer] 07/29/2024 [id number] / / [id number] Patella All Poly Ply 41mm - [id number] Implanted:Qty: 1 on 06/15/2020 by Sanjay Murrieta MD at [facility] DEVICE Right: [employer] 06/28/2026 [id number] / / [id number] Comp Str Hyb St 14x+30 - [id number] Implanted:Qty: 1 on 06/15/2020 by Sanjay Murrieta MD at [facility] DEVICE Right: [employer] 11/26/2029 [id number] / / [id number] Stem Tib 5deg Szh Rt - [id number] Implanted:Qty: 1 on 06/15/2020 by Sanjay Murrieta MD at [facility] DEVICE Right: [employer] 01/26/2029 [id number] / / [id number] Comp Fem Ps Ccr Ps Std Sz12 Rt - [id number] Implanted:Qty: 1 on 06/15/2020 by Sanjay Murrieta MD at [facility] DEVICE Right: [employer] 06/28/2029 [id number] / / [id number] Asf Ps Ve 10mm 1012 Gh Rt - [id number] Implanted:Qty: 1 on 06/15/2020 by Sanjay Murrieta MD at [facility] DEVICE Right: [employer] 04/28/2021 [id number] / / [id number] Advance Directives * Full Code (Latest Code Status on File) Date Activated Date Inactivated Comments 06/15/2020 2:08 PM 06/17/2020 2:45 PM Care Teams Gasoline Locomotive Crane Operator Relationship Specialty Start Date End Date Clinician, Not Found, [place] [address] PCP - General 06/23/20
--- OUTSIDE RECORDS SUMMARY | 2024-07-14 13:20 | XMS_ITS | Encounter Summary ---
Author [facility] Address [address] [address] Care Team Providers Care Ocular Care Technologist Name Role Phone Clinician, Not Found MD Primary Care Provider Un available Reason for Visit * Reason Comments Questions Encounter Details Date Type Department Care Team (Late st Contact Info) Description 12/30/2023 Telephone [facility] [address] [place], [place] [id number] Zakia Carrillo, SECURITY OPERATIONS CENTER ANALYST, STEAM CRANE OPERATOR [address] [place] [address] Questions Social History Tobacco Use Types Packs/Day [...] can we send you a message in appening? No [Games Dealer/Market Sales Manager: Relay to patient; We make every effort to get back to you sameday, however it may take 1-2 business days depending on the nature of the communication.] documented in this encounter Plan of Treatment Not on file documented as of this encounter Visit Diagnoses Not on filedocumented in this encounter Care Teams Ocular Care Technologist Relationship Specialty Start Date End Date Clinician, Not Found, [place] [address] PCP - General 06/23/20 documented as of this encounter
== END 2024-07-14 13:18 | disposition home or self-care (01) ==
LOC: WOUND 13:18
PROVIDERS: PCP Family Medicine; Visit Provider Family Medicine
DX: I87.312 Chronic venous hypertension (idiopathic) with ulcer of left lower extremity (principal); I89.0 Lymphedema, not elsewhere classified; L97.821 Non-pressure chronic ulcer of other part of left lower leg limited to breakdown of skin; L97.828 Non-pressure chronic ulcer of other part of left lower leg with other specified severity
CPT/HCPCS: 11042

== ENCOUNTER 2024-09-23 11:17 | Outpatient (CLI) | payer MEDICARE, BC, SELFPAY ==
[2024-09-23 12:14] LABS: HCO3 VBG 38 mmol/L (21-28); PO2 VBG 34.9 mmHG (25-47); pH VBG 7.337 (7.32-7.43)
[2024-09-23 12:16] LABS: PCO2 VBG 71 mmHG (40-50)
[2024-09-23 13:25] LABS: Basophils Absolute Auto 0.04 K/uL (0.00-0.30); Basophils Percent Auto 0.4 % (0.0-3.0); Eosinophils Absolute Auto 0.37 K/uL (0.00-0.50); Eosinophils Percent Auto 3.4 % (0.0-7.0); Hematocrit 38.3 % (37.0-53.0); Hemoglobin* 11.6 gm/dL (13.5-17.5); Immature Granulocytes Abs Auto 0.06 K/uL (0.00-0.30); Immature Granulocytes Pct Auto 0.6 %; Mean Corpuscular HGB Conc 30 gm/dL (32-36); Mean Corpuscular Hemoglobin 29 pg (26-34); Mean Corpuscular Volume 95 fL (80-100); Monocytes Percent Auto 14.1 % (0.0-11.0); Neutrophils Absolute Auto 6.72 K/uL (1.7-7.0); Neutrophils Percent Auto 62.5 % (42.0-72.0); Platelet Count* 268 K/uL (140-440); RDW Coefficient of Variation % 16.4 % (11.5-15.5); Red Blood Count 4.03 m/uL (4.30-5.90); White Blood Count* 10.74 K/uL (4.50-11.00)
[2024-09-23 13:30] LABS: Slide Review Reflex No
[2024-09-23 13:34] LABS: NT Pro B Type NatriureticPept* 1770 pg/mL
== END 2024-09-23 11:18 | disposition home or self-care (01) ==
PROVIDERS: PCP Family Medicine; Visit Provider Family Medicine
DX: E03.9 Hypothyroidism, unspecified (principal); I50.9 Heart failure, unspecified
CPT/HCPCS: 82803; 83880; 84443; 85025

== ENCOUNTER 2024-12-16 08:25 | Outpatient (CLI) | payer MEDICARE, BC, SELFPAY | END 2024-12-16 08:26 | disposition home or self-care (01) | PROVIDERS: PCP Family Medicine; Visit Provider Family Medicine | DX: I10 Essential (primary) hypertension (principal); E03.9 Hypothyroidism, unspecified; R53.83 Other fatigue; I48.91 Unspecified atrial fibrillation; I50.9 Heart failure, unspecified; G47.00 Insomnia, unspecified | CPT/HCPCS: 80048; 82607; 82728; 82746; 83540; 83550; 83735; 83880; 84443; 85025 ==

== ENCOUNTER 2024-12-30 07:51 | Outpatient (CLI) | payer MEDICARE, BC, SELFPAY | END 2024-12-30 07:52 | disposition home or self-care (01) | LOC: WOUND 07:54 | PROVIDERS: PCP Family Medicine; Visit Provider Nurse Practitioner Family | DX: L89.893 Pressure ulcer of other site, stage 3 (principal); I89.0 Lymphedema, not elsewhere classified; G60.9 Hereditary and idiopathic neuropathy, unspecified | CPT/HCPCS: 11042; G0463 ==

== ENCOUNTER 2025-01-10 13:36 | Outpatient (CLI) | payer MEDICARE, BC, SELFPAY ==
[2025-01-10 22:37] LABS: Ferritin* 69.6 ng/mL (17.9-464.0)
[2025-01-10 22:52] LABS: Iron* 28 ug/dL (49-181)
== END 2025-01-10 13:37 | disposition home or self-care (01) ==
PROVIDERS: PCP Family Medicine; Visit Provider Family Medicine
DX: I50.32 Chronic diastolic (congestive) heart failure (principal)
CPT/HCPCS: 80048; 82728; 83540; 83880; 85025

== ENCOUNTER 2025-01-14 12:29 | Outpatient (CLI) | payer MEDICARE, BC, SELFPAY | END 2025-01-14 12:30 | disposition home or self-care (01) | PROVIDERS: PCP Family Medicine; Visit Provider Family Medicine | DX: D64.9 Anemia, unspecified (principal); I50.9 Heart failure, unspecified; G25.81 Restless legs syndrome | CPT/HCPCS: 80048; 82668; 83880; 84165; 85025; 85045 ==

== ENCOUNTER 2025-01-17 15:07 | Outpatient (CLI) | payer MEDICARE, BC, SELFPAY ==
[2025-01-17 21:53] LABS: Chloride* 97 mmol/L (96-114); Potassium* 3.7 mmol/L (3.6-5.1); Sodium* 134 mmol/L (135-149)
[2025-01-17 21:56] LABS: Anion Gap 8 mEq/L (7-15); Blood Urea Nitrogen* 77 mg/dL (7-30); Carbon Dioxide* 29 mmol/L (20-32); Creatinine* 2.1 mg/dL (0.5-1.5); Estimated Glomerular Filt Rate 32 ml/min
[2025-01-17 21:57] LABS: Calcium* 8.3 mg/dL (8.4-10.6); Glucose* 112 mg/dL (60-115)
== END 2025-01-17 15:08 | disposition home or self-care (01) ==
LOC: NPINS 15:08
PROVIDERS: PCP Family Medicine; Visit Provider Internal Medicine
DX: G25.81 Restless legs syndrome (principal); I11.0 Hypertensive heart disease with heart failure; I50.9 Heart failure, unspecified; G47.33 Obstructive sleep apnea (adult) (pediatric); I48.91 Unspecified atrial fibrillation; E03.9 Hypothyroidism, unspecified; G47.00 Insomnia, unspecified; E66.09 Other obesity due to excess calories; Z95.2 Presence of prosthetic heart valve; Z95.810 Presence of automatic (implantable) cardiac defibrillator; D50.9 Iron deficiency anemia, unspecified
CPT/HCPCS: 80048

== ENCOUNTER 2025-02-18 04:46 | Outpatient (CLI) | payer MEDICARE, BC, SELFPAY | END 2025-02-18 04:47 | disposition home or self-care (01) | PROVIDERS: PCP Family Medicine; Visit Provider Family Medicine | DX: I48.91 Unspecified atrial fibrillation (principal); G25.81 Restless legs syndrome | CPT/HCPCS: 80048; 82728 ==

== ENCOUNTER 2025-03-14 10:48 | Outpatient (CLI) | payer MEDICARE, BC, SELFPAY | END 2025-03-14 10:49 | disposition home or self-care (01) | PROVIDERS: PCP Family Medicine; Visit Provider Family Medicine | DX: I10 Essential (primary) hypertension (principal); I48.91 Unspecified atrial fibrillation; I50.9 Heart failure, unspecified | CPT/HCPCS: 80048; 82728; 85025 ==

== ENCOUNTER 2025-04-19 10:26 | Outpatient (CLI) | payer MEDICARE, BC, SELFPAY | END 2025-04-19 10:27 | disposition home or self-care (01) | PROVIDERS: PCP Family Medicine; Visit Provider Family Medicine | DX: E03.9 Hypothyroidism, unspecified (principal); I48.91 Unspecified atrial fibrillation; I10 Essential (primary) hypertension; I50.9 Heart failure, unspecified; B00.1 Herpesviral vesicular dermatitis | CPT/HCPCS: 80048; 82728; 83880; 85025; 87040 ==

== ENCOUNTER 2025-05-06 11:49 | Outpatient (CLI) | payer MEDICARE, BC, SELFPAY | END 2025-05-06 11:50 | disposition home or self-care (01) | LOC: NFLDREF 05-11 18:55 | PROVIDERS: PCP Family Medicine; Referring Provider Family Medicine; Visit Provider Family Medicine | DX: R82.90 Unspecified abnormal findings in urine (principal); N39.0 Urinary tract infection, site not specified; E66.09 Other obesity due to excess calories | CPT/HCPCS: 87086; 87186 ==

== ENCOUNTER 2025-06-06 15:03 | Outpatient (CLI) | payer MEDICARE, BC, SELFPAY | END 2025-06-06 15:04 | disposition home or self-care (01) | PROVIDERS: PCP Family Medicine; Visit Provider Family Medicine | DX: E03.9 Hypothyroidism, unspecified (principal); I10 Essential (primary) hypertension; Z95.2 Presence of prosthetic heart valve | CPT/HCPCS: 80048; 82728; 84443; 85025 ==

== ENCOUNTER 2025-06-20 08:20 | Outpatient (CLI) | payer MEDICARE, BC, SELFPAY | END 2025-06-20 08:21 | disposition home or self-care (01) | PROVIDERS: PCP Family Medicine; Visit Provider Family Medicine | DX: D64.9 Anemia, unspecified (principal) | CPT/HCPCS: 80048; 85025 ==

== ENCOUNTER 2025-07-20 23:22 | Outpatient (CLI) | payer MEDICARE, BC, SELFPAY | END 2025-07-20 23:23 | disposition home or self-care (01) | LOC: AMB 08-25 19:23 | PROVIDERS: PCP Family Medicine; Visit Provider Emergency Medicine | DX: R53.1 Weakness (principal); R50.9 Fever, unspecified | CPT/HCPCS: A0425; A0427 ==

== ENCOUNTER 2025-09-13 13:40 | Outpatient (CLI) | payer MEDICARE, BC, SELFPAY | END 2025-09-13 13:41 | disposition home or self-care (01) | PROVIDERS: PCP Family Medicine; Visit Provider Family Medicine | DX: N52.9 Male erectile dysfunction, unspecified (principal); M40.00 Postural kyphosis, site unspecified; I11.0 Hypertensive heart disease with heart failure; I50.9 Heart failure, unspecified | CPT/HCPCS: 80048; 85025 ==